=== PATIENT | female | born 1960 | race African-American/Black ===

== ENCOUNTER → 2018-07-31 | Outpatient (CLI) | payer BC ==
[2014-06-11 14:30] VITALS: BP 154/90
[~2018-07-31] MED LIST: AMLO-265 PO; BENA40TA3 PO; CALC667C6 PO; ENOX100D3 SQ; FOLI1TAB16 PO; FURO40TA4 PO; LISI10TA2 PO; METH2.5T PO; METO50TA6 PO; NIAC500T82 PO; PANT40TA5 PO; POLY17PO29 PO; POTA20TA84 PO; TRAM50TA PO; WARF-31 PO
--- NOTE | 2018-08-01 14:40 | RAD ---
DATE: 07/31/2018 5:00 PM EXAM: DIGITAL SCREEN BILAT W/CAD HISTORY: routine screening evaluation. COMPARISON: Prior mammographic imaging dating back to 02/20/2012 Bilateral full field craniocaudal and mediolateral oblique images were obtained using digital technique. This study was interpreted with the benefit of Computerized Aided Detection (CAD ). Breast Density: The breast parenchyma is dense, which could reduce the sensitivity of mammography. Breast parenchyma level density D. FINDINGS: The parenchymal pattern appears stable. Benign calcifications are present. No suspicious masses, microcalcifications or architectural distortion is present to suggest malignancy in either breast. The visualized axillae are unremarkable. IMPRESSION: No mammographic evidence of malignancy. BI-RADS CATEGORY: 2 BENIGN FINDING(S) RECOMMENDED FOLLOW-UP: 12M 12 MONTH FOLLOW-UP Annual screening mammography is recommended, unless clinically indicated sooner based on symptoms or change in physical exam. PQRS compliance statement: Patient information was entered into a reminder system with a target due date 08/01/2019 for the next mammogram. Mammography is a sensitive method for finding small breast cancers, but it does not detect them all and is not a substitute for careful clinical examination. A negative mammogram does not negate a clinically suspicious finding and should not result in delay in biopsying a clinically suspicious abnormality. "Our facility is accredited by the [employer] Mammography Program." PRUDENCED
== END | disposition home or self-care (01) ==
LOC: MAMMO 14:56
PROVIDERS: ATTEND Physician Assistant Surgical
DX: Z12.31 Encounter for screening mammogram for malignant neoplasm of breast (principal)
CPT/HCPCS: 77067

== ENCOUNTER 2018-12-13 10:48 | Inpatient (IN) | payer BC ==
[~2018-12-13] VITALS: Ht 167.6 cm; Wt 61.9 kg
--- NOTE | 2018-12-13 11:09 | PHYS DOC ---
Past Medical History Past Medical History: A-Fib, Anemia, CHF, Hypertension Smoking: Cigarettes (Former smoker) Adult General HPI HPI Patient is a 58-year-old female who presents to the emergency department for evaluation. She states she was at work,lifting a heavy box, when she began experiencing pressure in her chest, associated with shortness of breath. She did not have any nausea, vomiting, or diaphoresis. She states that taking a deep breath seems to worsen her pain. She states the pain lasted about 15 minutes, and then gradually improved, and then completely resolved. She has been asymptomatic since EMS arrived at the site of her work. She does have a history of atrial fibrillation, and takes Xarelto, as well as a history of congestive heart failure and hypertension. She is pain-free at this time. The pain did not radiate. There are no alleviating or exacerbating factors to her symptoms otherwise. Review of Systems Review of Systems Constitutional: Denies fever or chills [] Eyes: Denies change in visual acuity, redness, or eye pain [] HENT: Denies nasal congestion or sore throat [] Respiratory: Denies cough or current shortness of breath [] Cardiovascular: No additional information not addressed in HPI [] GI: Denies abdominal pain, nausea, vomiting, bloody stools or diarrhea [] : Denies dysuria or hematuria [] Musculoskeletal: Denies back pain or joint pain [] Integument: Denies rash or skin lesions [] Neurologic: Denies headache, focal weakness or sensory changes [] Endocrine: Denies polyuria or polydipsia [] All other systems were reviewed and found to be within normal limits, except as documented in this note. Current Medications Current Medications Current Medications Medications (Trade) Dose Ordered Sig/Blaine Start Time Stop Time Status Last Admin Dose Admin Aspirin (Children'S Aspirin) 162 mg 1X ONCE 12/13/18 11:15 12/13/18 11:16 DC 12/13/18 11:24 162 MG Nitroglycerin (Nitro-Bid Oint) 1 inch 1X ONCE 12/13/18 11:15 12/13/18 11:16 DC 12/13/18 11:25 1 INCH Allergies Allergies Allergies Coded Allergies Type Severity Reaction Last Updated Verified No Known Drug Allergies 05/23/14 No Physical Exam Physical Exam PHYSICAL EXAM: CONSTITUTIONAL: Well developed, well nourished HEAD: normocephalic, atraumatic EENT: PERRL, EOMI. Conjunctivae normal color, sclerae non-icteric; moist mucous membranes. NECK: Supple, non-tender; no meningismus. LUNGS: Lungs CTA, breathing even and unlabored. Normal air movement. HEART: Regular rate and rhythm, there is a soft holosystolic murmur CHEST: No deformity; non-tender ABDOMEN: The abdomen is soft, and non-tender, no masses or bruits. EXTREM: Normal ROM; no deformity, no calf tenderness. Normal pulses palpable in all extremities. There is 1+ bilateral pitting pedal edema. SKIN: No rash; no diaphoresis NEURO: Alert; normal speech and cognition; CN's grossly intact; strength grossly intact without focal deficit. BACK: No CVA TTP. Current Patient Data Vital Signs Vital Signs Date Time Temp Pulse Resp B/P (MAP) Pulse Ox O2 Delivery O2 Flow Rate FiO2 12/13/18 11:25 97 173/81 12/13/18 10:50 98.4 18 99 Room Air 98.4 Lab Values Laboratory Tests Test 12/13/18 11:15 White Blood Count 4.2 x10^3/uL (4.0-11.0) Red Blood Count 2.75 x10^6/uL (3.50-5.40) L Hemoglobin 8.2 g/dL (12.0-15.5) L Hematocrit 25.0 % (36.0-47.0) L Mean Corpuscular Volume 91 fL (79-100) Mean Corpuscular Hemoglobin 30 pg (25-35) Mean Corpuscular Hemoglobin Concent 33 g/dL (31-37) Red Cell Distribution Width 17.4 % (11.5-14.5) H Platelet Count 152 x10^3/uL (140-400) Neutrophils (%) (Auto) 79 % (31-73) H Lymphocytes (%) (Auto) 14 % (24-48) L Monocytes (%) (Auto) 6 % (0-9) Eosinophils (%) (Auto) 1 % (0-3) Basophils (%) (Auto) 1 % (0-3) Neutrophils # (Auto) 3.3 x10^3uL (1.8-7.7) Lymphocytes # (Auto) 0.6 x10^3/uL (1.0-4.8) L Monocytes # (Auto) 0.2 x10^3/uL (0.0-1.1) Eosinophils # (Auto) 0.0 x10^3/uL (0.0-0.7) Basophils # (Auto) 0.0 x10^3/uL (0.0-0.2) Prothrombin Time 22.0 SEC (11.7-14.0) H Prothrombin Time INR 2.0 (0.8-1.1) H Sodium Level 140 mmol/L (136-145) Potassium Level 4.1 mmol/L (3.5-5.1) Chloride Level 104 mmol/L (98-107) Carbon Dioxide Level 26 mmol/L (21-32) Anion Gap 10 (6-14) Blood Urea Nitrogen 66 mg/dL (7-20) H Creatinine 2.1 mg/dL (0.6-1.0) H Estimated GFR (Cockcroft-Gault) 29.3 BUN/Creatinine Ratio 31 (6-20) H Glucose Level 92 mg/dL (70-99) Calcium Level 9.7 mg/dL (8.5-10.1) Total Bilirubin 0.4 mg/dL (0.2-1.0) Aspartate Amino Transferase (AST) 21 U/L (15-37) Alanine Aminotransferase (ALT) 17 U/L (14-59) Alkaline Phosphatase 84 U/L (46-116) Creatine Kinase 50 U/L (26-192) Creatine Kinase MB (Mass) 1.1 ng/mL (0.0-3.6) Creatine Kinase MB Relative Index % (0-4) Troponin I Quantitative 0.030 ng/mL (0.000-0.055) RH-Zij-U-Type Natriuretic Peptide 1188 pg/mL (0-124) H Total Protein 8.2 g/dL (6.4-8.2) Albumin 2.7 g/dL (3.4-5.0) L Albumin/Globulin Ratio 0.5 (1.0-1.7) L Lipase 183 U/L (73-393) Laboratory Tests 12/13/18 11:15 Laboratory Tests 12/13/18 11:15 EKG EKG Normal sinus rhythm at a rate of 92 beats for minute, left axis deviation, normal intervals, nonspecific ST/T changes with lateral T wave inversion. There is no old EKG available for comparison.[] Radiology/Procedures Radiology/Procedures [PROCEDURE: PORTABLE CHEST 1V Single view of the chest. 12/13/2018 11:02 AM Indication: PT STATES HAVING LEFT SIDED CHEST PAIN AND TROUBLE BREATHING SINCE THIS AM. Comparison: Chest radiograph August 02, 2017 Findings: There appears to be mild to moderate central vascular congestion. Heart size is top normal. Interstitial coarsening noted bilaterally, right greater than left. Fullness in the right hilar region noted. No pneumothorax or definitive effusion is seen. Bony thorax appears grossly intact. IMPRESSION: 1.Central vascular congestion and interstitial thickening. Findings may represent mild edema or an atypical infectious process. 2. Fullness of the right hilar region. This could be due to vascular congestion however adenopathy or mass cannot be completely excluded. Consider short-term follow-up two-view chest radiograph versus contrast enhanced CT chest for further evaluation. ] Course & Med Decision Making Course & Med Decision Making Pertinent Labs and Imaging studies reviewed. (See chart for details) []12:15 PM: The patient's condition remains stable. I spoke with the hospitalist, who accepted the patient to the hospital for further evaluation and treatment. She has not had any recent labs at this facility. I will attempt to find out the patient's recent renal function and hemoglobin levels although she reports a history of anemia Dragon Disclaimer Dragon Disclaimer This electronic medical record was generated, in whole or in part, using a voice recognition dictation system. Departure Departure Impression: Primary Impression: Chest pain Additional Impressions: Congestive heart failure Renal insufficiency Anemia Disposition: ADMITTED INPATIENT Admitting Physician: Bairon Molina Condition: STABLE Referrals: KESHAWN WINKLER (PCP) Problem Qualifiers SHERLY STALLINGS MD December 13, 2018 11:09
[2018-12-13] MEDS ORDERED: NITROGLYCERIN OINT 1 GM PACKET. TP ONE (11:15)
[2018-12-13] MEDS ORDERED: ASPIRIN CHEWABLE 81 MG TABLET. PO ONE (11:15)
[2018-12-13 11:33] LABS: BASO % 1 % (0-3); EOS % 1 % (0-3); HEMOGLOBIN 8.2 g/dL (12.0-15.5); LYMPH # 0.6 x10^3/uL (1.0-4.8); LYMPH % 14 % (24-48); MEAN CORPUSCULAR HEMOGLOBIN 30 pg (25-35); MEAN CORPUSCULAR HGB CONC 33 g/dL (31-37); MEAN CORPUSCULAR VOLUME 91 fL (79-100); MONO # 0.2 x10^3/uL (0.0-1.1); MONO % 6 % (0-9); NEUT # 3.3 x10^3uL (1.8-7.7); NEUT % 79 % (31-73); PLATELET COUNT 152 x10^3/uL (140-400); RED BLOOD COUNT 2.75 x10^6/uL (3.50-5.40); RED CELL DISTRIBUTION WIDTH 17.4 % (11.5-14.5); WHITE BLOOD COUNT 4.2 x10^3/uL (4.0-11.0)
[2018-12-13 11:39] LABS: CALCIUM 9.7 mg/dL (8.5-10.1); CREATININE 2.1 mg/dL (0.6-1.0); GFR 29.3; POTASSIUM 4.1 mmol/L (3.5-5.1)
--- NOTE | 2018-12-13 11:41 | PDOC1 ---
History and Physical Date of Admission Date of Admission DATE: 12/13/18 TIME: 11:41 Identification/Chief Complaint Chief Complaint states she was at work,lifting a heavy box, when she began experiencing pressure in her chest, associated with shortness of breath. She did not have any nausea, vomiting, or diaphoresis. She states that taking a deep breath seems to worsen her pain. She states the pain lasted about 15 minutes, and then gradually improved, and then completely resolved. She has been asymptomatic since EMS arrived at the site of her work. She does have a history of atrial fibrillation, and takes Xarelto, as well as a history of congestive heart failure and hypertension Past Medical History Past Medical History Past Medical History Past Medical History Past Medical History: A-Fib, Anemia, CHF, Hypertension Smoking: Cigarettes (Former smoker) renal bx 2015 uterine myoma family hx htn Cardiovascular: HTN, Hyperlipidemia Pulmonary: Asthma CENTRAL NERVOUS SYSTEM: Seizure GI: GERD Renal/: Other Family History Family History: Hypertension Social History Smoke: <1 pack per day ALCOHOL: occassional Drugs: None Current Medications Current Medications Current Medications Aspirin (Children'S Aspirin) 162 mg 1X ONCE PO Last administered on 12/13/18at 11:24; Start 12/13/18 at 11:15; Stop 12/13/18 at 11:16; Status DC Nitroglycerin (Nitro-Bid Oint) 1 inch 1X ONCE TP Last administered on 12/13/18at 11:25; Start 12/13/18 at 11:15; Stop 12/13/18 at 11:16; Status DC Active Scripts Active Reported Miralax (Polyethylene Glycol 3350) 17 Gm Powd.pack 1 Packet PO DAILY Lisinopril 10 Mg Tablet 1 Tab PO DAILY Phoslo (Calcium Acetate) 667 Mg Capsule 1 Cap PO DAILY K-Tab ER (Potassium Chloride) 20 Meq Tablet.er 20 Meq PO DAILY Folic Acid 1 Mg Tablet 1 Mg PO DAILY Pantoprazole Sodium 40 Mg Tablet.dr 40 Mg PO DAILY Benazepril Hcl 40 Mg Tablet 40 Mg PO DAILY Furosemide 40 Mg Tablet 40 Mg PO DAILY Metoprolol Tartrate 50 Mg Tablet 50 Mg PO DAILY Amlodipine-Atorvast 5-40 Mg (Amlodipine/Atorvastatin) 1 Each Tablet 1 Each PO DAILY Enoxaparin Sodium 100 Mg/1 Ml Disp.syrin 100 Mg SQ DAILY Tramadol Hcl 50 Mg Tablet 50 Mg PO DAILY PRN Niacin Er (Niacin) 500 Mg Tab.er.24h 500 Mg PO HS Allergies Allergies: Coded Allergies: No Known Drug Allergies (Unverified , 05/23/14) ROS Review of System Review of Systems Review of Systems Constitutional: Denies fever or chills [] Eyes: Denies change in visual acuity, redness, or eye pain [] HENT: Denies nasal congestion or sore throat [] Respiratory: Denies cough or current shortness of breath [] Cardiovascular: No additional information not addressed in HPI [] GI: Denies abdominal pain, nausea, vomiting, bloody stools or diarrhea [] : Denies dysuria or hematuria [] Musculoskeletal: Denies back pain or joint pain [] Integument: Denies rash or skin lesions [] Neurologic: Denies headache, focal weakness or sensory changes [] Endocrine: Denies polyuria or polydipsia [] 14 pt systems were reviewed and found to be within normal limits, except as documented . Hematological and Lymphatic: No: Bleeding Problems, Blood Clots, Blood Transfusions, Brusing, Night Sweats, Pallor, Swollen Lymph Nodes, Other Cardiovascular: yes Chest Pain, yes Palpitations Gastrointestinal: No Nausea, No Vomiting, No Abdominal Pain, No Diarrhea, No Constipation, No Melena, No Hematochezia, No Other Musculoskeletal: No Gait Disturbance, No Joint Pain, No Joint Stiffness, No Joint Swelling, No Muscle Pain, No Muscular Weakness, No Pain In:, No Swelling In:, No Other Skin: No Dry Skin, No Eczema, No Hair Changes, No Lumps, No Mole Changes, No Mottling, No Nail Changes, No Pruritus, No Rash, No Skin Lesion Changes, No Other, No Acne Physical Exam Physical Exam Physical Exam Physical Exam PHYSICAL EXAM: CONSTITUTIONAL: Well developed, well nourished HEAD: normocephalic, atraumatic EENT: PERRL, EOMI. Conjunctivae normal color, sclerae non-icteric; moist mucous membranes. NECK: Supple, non-tender; no meningismus. LUNGS: Lungs CTA, breathing even and unlabored. Normal air movement. HEART: Regular rate and rhythm, there is a soft holosystolic murmur CHEST: No deformity; non-tender ABDOMEN: The abdomen is soft, and non-tender, no masses or bruits. EXTREM: Normal ROM; no deformity, no calf tenderness. Normal pulses palpable in all extremities. There is 1+ bilateral pitting pedal edema. SKIN: No rash; no diaphoresis NEURO: Alert; normal speech and cognition; CN's grossly intact; strength grossly intact without focal deficit. BACK: No CVA TTP. General: Alert, Oriented X3, Cooperative, mild distress HEENT: Atraumatic, EOMI, Mucous membr. moist/pink Lungs: Normal air movement Heart: irregularly irregular Breasts: Not examined Abdomen: Normal bowel sounds, Soft Rectal Exam: not examined PELVIC: Examination not indicated Extremities: No cyanosis Neuro: Normal speech, Cranial nerves 3-12 NL Psych/Mental Status: Mental status NL, Mood NL Vitals Vitals Vital Signs Date Time Temp Pulse Resp B/P (MAP) Pulse Ox O2 Delivery O2 Flow Rate FiO2 12/13/18 11:25 97 173/81 Labs Labs Laboratory Tests Test 12/13/18 11:15 White Blood Count 4.2 x10^3/uL (4.0-11.0) Red Blood Count 2.75 x10^6/uL (3.50-5.40) Hemoglobin 8.2 g/dL (12.0-15.5) Hematocrit 25.0 % (36.0-47.0) Mean Corpuscular Volume 91 fL (79-100) Mean Corpuscular Hemoglobin 30 pg (25-35) Mean Corpuscular Hemoglobin Concent 33 g/dL (31-37) Red Cell Distribution Width 17.4 % (11.5-14.5) Platelet Count 152 x10^3/uL (140-400) Neutrophils (%) (Auto) 79 % (31-73) Lymphocytes (%) (Auto) 14 % (24-48) Monocytes (%) (Auto) 6 % (0-9) Eosinophils (%) (Auto) 1 % (0-3) Basophils (%) (Auto) 1 % (0-3) Neutrophils # (Auto) 3.3 x10^3uL (1.8-7.7) Lymphocytes # (Auto) 0.6 x10^3/uL (1.0-4.8) Monocytes # (Auto) 0.2 x10^3/uL (0.0-1.1) Eosinophils # (Auto) 0.0 x10^3/uL (0.0-0.7) Basophils # (Auto) 0.0 x10^3/uL (0.0-0.2) Sodium Level 140 mmol/L (136-145) Potassium Level 4.1 mmol/L (3.5-5.1) Chloride Level 104 mmol/L (98-107) Carbon Dioxide Level 26 mmol/L (21-32) Anion Gap 10 (6-14) Blood Urea Nitrogen 66 mg/dL (7-20) Creatinine 2.1 mg/dL (0.6-1.0) Estimated GFR (Cockcroft-Gault) 29.3 BUN/Creatinine Ratio 31 (6-20) Glucose Level 92 mg/dL (70-99) Calcium Level 9.7 mg/dL (8.5-10.1) Laboratory Tests Test 12/13/18 11:15 White Blood Count 4.2 x10^3/uL (4.0-11.0) Red Blood Count 2.75 x10^6/uL (3.50-5.40) Hemoglobin 8.2 g/dL (12.0-15.5) Hematocrit 25.0 % (36.0-47.0) Mean Corpuscular Volume 91 fL (79-100) Mean Corpuscular Hemoglobin 30 pg (25-35) Mean Corpuscular Hemoglobin Concent 33 g/dL (31-37) Red Cell Distribution Width 17.4 % (11.5-14.5) Platelet Count 152 x10^3/uL (140-400) Neutrophils (%) (Auto) 79 % (31-73) Lymphocytes (%) (Auto) 14 % (24-48) Monocytes (%) (Auto) 6 % (0-9) Eosinophils (%) (Auto) 1 % (0-3) Basophils (%) (Auto) 1 % (0-3) Neutrophils # (Auto) 3.3 x10^3uL (1.8-7.7) Lymphocytes # (Auto) 0.6 x10^3/uL (1.0-4.8) Monocytes # (Auto) 0.2 x10^3/uL (0.0-1.1) Eosinophils # (Auto) 0.0 x10^3/uL (0.0-0.7) Basophils # (Auto) 0.0 x10^3/uL (0.0-0.2) Sodium Level 140 mmol/L (136-145) Potassium Level 4.1 mmol/L (3.5-5.1) Chloride Level 104 mmol/L (98-107) Carbon Dioxide Level 26 mmol/L (21-32) Anion Gap 10 (6-14) Blood Urea Nitrogen 66 mg/dL (7-20) Creatinine 2.1 mg/dL (0.6-1.0) Estimated GFR (Cockcroft-Gault) 29.3 BUN/Creatinine Ratio 31 (6-20) Glucose Level 92 mg/dL (70-99) Calcium Level 9.7 mg/dL (8.5-10.1) Images Images CT-guided biopsy lower pole right kidney Indication: Proteinuria. Hypertension. Renal biopsy requested by nephrology. Anesthesia: 34 minutes moderate sedation was provided utilizing a total of 2 mg Versed and 100 mcg fentanyl, IV. The patient was appropriately monitored by a qualified independent observer throughout the time of moderate sedation. Consent: The procedure was explained in its entirety to the patient and/or the patient's designated represented by a member of the treatment team. This included a discussion of risks and benefits and acceptable alternatives to the procedure, as well as expected consequences of no treatment at all. Discussion of risks included, but was not limited to, those that are most frequent and those that are rare, but possibly severe or life-threatening, as well as the possibility of unforeseen complications. Procedure: Informed consent was obtained from the patient. She was placed prone on the CT scanner. Preliminary noncontrast CT images were obtained through kidneys. A right posterior skin site suitable for CT-guided biopsy of lower pole of right kidney was selected and marked. That area was prepped and draped in the usual sterile fashion. Conscious sedation was provided with IV Versed and fentanyl. Using aseptic technique, local anesthesia, and CT guidance, a 17-gauge guide needle was successfully advanced into right lower pole renal parenchyma. 4 18-gauge core biopsy samples were obtained. 2 samples were submitted in formalin to pathology. 2 samples were submitted in Pedro's solution to pathology. Hemostasis was achieved with autologous clot introduced through the biopsy guide needle, which was then removed. Completion CT images revealed no evidence of significant postbiopsy hemorrhage. Patient tolerated the procedure well without apparent complication. Impression: Uneventful CT-guided biopsy lower pole right kidney, as described. DICTATED and SIGNED BY: TARUN BUSTAMANTE MD DATE: 06/13/14 0759 CC: RIDDHI IRIZARRY MD; ASIYA SANDHU MD ~ CT chest abdomen pelvis without IV contrast History: Anemia, chronic kidney disease. Comparison: CT chest 08/20/2005. Technique: After administration of oral contrast only, helical CT of the chest, abdomen, and pelvis was performed from the lung apices through the ischial tuberosities. No intravenous contrast was administered secondary to impaired renal function. Findings: Evaluation of solid organs is limited by lack of intravenous contrast. Visualized thyroid appears mildly heterogeneous. Trachea and mainstem bronchi appear patent. Small bilateral axillary lymph nodes are similar to previous study. Small prevascular lymph nodes appear similar to smaller since previous study. Trachea and mainstem bronchi appear patent. Right upper lobe demonstrates a small irregular nodule measuring 6 mm, unchanged, compatible with focal scar. No pericardial thickening is identified. Coronary artery calcifications are seen. Thoracic aorta has normal caliber. Attenuation of blood full appears decreased relative to the ventricular chung, suggesting anemia. Liver, spleen, pancreas, gallbladder, and bilateral adrenal glands are unremarkable. Bilateral kidneys and ureters are free of stone or obstruction. Inferior vena cava filter is present, although some of the legs appeared to be external to the expected location of the IVC wall. No bowel obstruction or inflammation is identified. Urinary bladder is grossly normal. A few small abdominal and retroperitoneal lymph nodes are seen, all of which measure 10 mm in short axis. Multiple lobulated masses are seen in the pelvis which is thought to arise from the uterus and are compatible with multiple large exophytic leiomyoma. The largest leiomyoma measures about 8 cm in maximum dimension. Some of the leiomyomata demonstrate calcifications. The overall length of the uterus is estimated at 19 cm with maximum AP dimension of 8 cm and maximum transverse dimension of 15 cm. Mild biphasic scoliosis of the thoracic spine is seen. Impression: 1. Markedly enlarged, leiomyomatous uterus. 2. Mild chest lymphadenopathy, similar to previous study. 3. Borderline abdominal lymphadenopathy. DICTATED and SIGNED BY: STEPHANIA BLEDSOE MD DATE: 05/14/15 0937 CC: ASIYA SANDHU MD; PHUONG RUSH MD ~ Single view of the chest. 12/13/2018 11:02 AM Indication: PT STATES HAVING LEFT SIDED CHEST PAIN AND TROUBLE BREATHING SINCE THIS AM. Comparison: Chest radiograph August 02, 2017 Findings: There appears to be mild to moderate central vascular congestion. Heart size is top normal. Interstitial coarsening noted bilaterally, right greater than left. Fullness in the right hilar region noted. No pneumothorax or definitive effusion is seen. Bony thorax appears grossly intact. IMPRESSION: 1.Central vascular congestion and interstitial thickening. Findings may represent mild edema or an atypical infectious process. 2. Fullness of the right hilar region. This could be due to vascular congestion however adenopathy or mass cannot be completely excluded. Consider short-term follow-up two-view chest radiograph versus contrast enhanced CT chest for further evaluation. Electronically signed by: Deo Rucker MD (12/13/2018 12:05 PM) [id number] DICTATED and SIGNED BY: DEO RUCKER MD VTE Prophylaxis Ordered VTE Prophylaxis Devices: Yes VTE Pharmacological Prophylaxi: Yes Assessment/Plan Assessment/Plan impression chest discomfort Fullness of the right hilar region. This could be due to vascular congestion however adenopathy or mass cannot be completely excluded. Consider short-term follow-up two-view chest radiograph versus contrast enhanced CT chest for further evaluation. valvular heart disease renal failure hypertension hx a-fib plan cvc admit echo cardiology consult serial troponin i nephrology consult dvt prophylaxis 77 min pt exam, chart review, > 50% of time spent with exam, chart review, pt care coordination LAMONT ZARATE MD December 13, 2018 11:41
[2018-12-13 11:46] LABS: ALBUMIN 2.7 g/dL (3.4-5.0); ALBUMIN/GLOBULIN RATIO 0.5 (1.0-1.7); TOTAL BILIRUBIN 0.4 mg/dL (0.2-1.0); TOTAL PROTEIN 8.2 g/dL (6.4-8.2)
[2018-12-13 12:00] LABS: CREATINE KINASE 50 U/L (26-192)
--- NOTE | 2018-12-13 12:08 | RAD ---
Single view of the chest. 12/13/2018 11:02 AM Indication: PT STATES HAVING LEFT SIDED CHEST PAIN AND TROUBLE BREATHING SINCE THIS AM. Comparison: Chest radiograph August 02, 2017 Findings: There appears to be mild to moderate central vascular congestion. Heart size is top normal. Interstitial coarsening noted bilaterally, right greater than left. Fullness in the right hilar region noted. No pneumothorax or definitive effusion is seen. Bony thorax appears grossly intact. IMPRESSION: 1.Central vascular congestion and interstitial thickening. Findings may represent mild edema or an atypical infectious process. 2. Fullness of the right hilar region. This could be due to vascular congestion however adenopathy or mass cannot be completely excluded. Consider short-term follow-up two-view chest radiograph versus contrast enhanced CT chest for further evaluation. Electronically signed by: Deo Baptiste MD (12/13/2018 12:05 PM) [id number]
[2018-12-13] MEDS ORDERED: traMADol 50 MG TABLET PO PRN (12:45)
--- NOTE | 2018-12-13 13:10 | EKG ---
[facility] [address] [place] [address] Test Date: 2018-12-13 Test Time: 10:56:05 Pat Name: INA GRANT Department: Room: 258 1 Gender: F Primary Care Provider: : 1960 Requested By: SHERLY STALLINGS Order Number: [id number] Reading MD: Pastor Barnes Measurements Intervals [place] Rate: 92 P: 45 AL: 162 QRS: -26 QRSD: 84 T: 59 QT: 368 QTc: 460 Interpretive Statements SINUS RHYTHM LEFT ATRIAL ABNORMALITY INCOMPLETE RIGHT BUNDLE BRANCH BLOCK CONSIDER LEFT VENTRICULAR HYPERTROPHY QRS(T) CONTOUR ABNORMALITY CONSISTENT WITH INFERIOR INFARCT PROBABLY OLD Electronically Signed On 12-14-2018 10:10:23 CDT by Pastor Barnes
--- NOTE | 2018-12-13 13:18 | RAD ---
CT CHEST WO CONTRAST Indication: Lymphadenopathy Technique: Noncontrast CT imaging was performed of the chest, multiplanar reconstruction images submitted. One or more of the following individualized dose reduction techniques were utilized for this examination: 1. Automated exposure control 2. Adjustment of the mA and/or kV according to patient size 3. Use of iterative reconstruction technique. Comparison: August 20, [address]; chest radiograph the same day Findings: There is again significant enlargement of the heart. There is trace pericardial fluid. There is no pleural fluid or pneumothorax. There is a focus of noncalcified peripheral density more anteriorly of the right middle lobe abutting pleural surface image 33 series 2 about 1.2 cm in size, not seen on previous exam. There is also focus of subpleural right lower lobe density image 26 series 2 about 0.9 cm not seen previously. Focus of irregular appearing noncalcified density of the right upper lobe image 21 series 2 about 0.8 cm is similar in size. There is some reticular density of the lower lobes bilaterally likely component of fibrotic change as similar in appearance. Thoracic aortic caliber is overall within normal limits. There is coronary calcification. Evaluation for lymphadenopathy is somewhat limited given lack of contrast, hilar and mediastinal contours similar compared with the previous exam. There are some subcentimeter mediastinal nodes present which are similar. There is axillary lymphadenopathy bilaterally with largest node on the right about 1.5 cm short axis dimension and largest node on the left about 1.3 cm short axis dimension although axillary nodes are very similar in overall appearance. There is mild reverse S-shaped scoliosis of the thoracic spine. There is again thyromegaly, also likely foci of nodularity most notable of the left thyroid gland about 2 cm. IMPRESSION: 1. Bilateral axillary lymphadenopathy is similar compared with the 2006 exam, no new convincing mediastinal or hilar lymphadenopathy. There are some new foci of subpleural noncalcified density of the right lower and right upper lobes for which short-term follow-up imaging such as in 3 months is recommended. If there is strong clinical suspicion for malignancy, PET CT could be beneficial. Another focus of irregular nodular density of the right upper lobe is stable in appearance. 2. There is coronary calcification. 3. There is again significant enlargement of the heart. 4. There is again thyromegaly and likely thyroid nodules. Electronically signed by: Juan Francisco Wong MD (12/13/2018 1:15 PM) [id number]
[2018-12-13] MEDS ORDERED: METO-247 PO ×3 (13:36→15:27)
[2018-12-13 13:40] VITALS: BP 165/82
--- NOTE | 2018-12-13 14:00 | NUR ---
Pt arrived to unit via wheelchair. Family present. No complaints of pain or shortness of breath. Pt oriented to room and call light within reach. Will continue to monitor. The patient, INA GRANT, 58 y/o, F admitted by LAMONT ZARATE MD, was given written information regarding hospital policies, unit procedures and contact persons. Pt belongings checked and kept in room with patient.
[2018-12-13] MEDS ORDERED: OLME1TAB35 PO (14:01)
[2018-12-13] MEDS ORDERED: ATOR40TA59 PO (14:01)
[2018-12-13] MEDS ORDERED: RIVA10TA PO (14:02)
[2018-12-13] MEDS ORDERED: ALBU2.5V8 INH (14:03)
[2018-12-13] MEDS ORDERED: BUDE10.2 IH (14:03)
[2018-12-13] MEDS ORDERED: TIOT18CA IH (14:03)
--- NOTE | 2018-12-13 14:07 | PDOC2 ---
CURTIS DOE ROCKET ENGINE COMPONENT MECHANIC 12/13/18 1407: CARDIAC CONSULT DATE OF CONSULT Date of Consult DATE: 12/13/18 TIME: 13:46 REASON FOR CONSULT Reason for Consult: Chest pain REFERRING PHYSICIAN Referring Physician: CP, CHF SOURCE Source: Chart review, Patient HISTORY OF PRESENT ILLNESS HISTORY OF PRESENT ILLNESS This is a 58 yo male AA female admitted for chest pain. She was at work lifting heavy box when she started having chest pressure and SOA lasting about 15 minutes and actually dropped the box with the turkey in it weighing less than 10 pounds. Also was having palpitations like her heart was racing. Her chest pain was midchest like someone hit her with a fist but nonradiating. No jaw tightness or arm heaviness. No nausea, diaphoresis. There has been no changes to her activity tolerance and no recent symptoms like the latter, no exertional CP nor HOBSON. She does have hx of PE, some form of lupus but not SLE, antiphospholipid antibody syndrome and has RA to which she told me that she is not currently on any immunosuppression but could not verify her medications. No past hx of CAD but was due to see a restaurant hospitality manager for the first time soon. She has hx of AFIB which was noted 5 yrs ago initially. No recent stress test. She also has noticed that her legs have been more swollen in the last 3 days. No recent infection, no orthopnea nor PND. PAST MEDICAL HISTORY Cardiovascular: AFIB, HTN, Hyperlipidemia Pulmonary: COPD, Pulmonary embolus CENTRAL NERVOUS SYSTEM: Other (No pertinent history) GI: GERD Heme/Onc: Anemia NOS, Other (antiphospholipid antibody syndrome; chronic immunosuppresion; pancytopenia) Musculoskeletal: Osteoarthritis Rheumatologic: Rheumatoid arthritis, Other (lupus, unknown type) Infectious disease: No pertinent hx ENT: Allergic Rhinitis Renal/: Chronic renal insuff (CKD3) Endocrine: No pertinent hx Dermatology: No pertinent hx PAST SURGICAL HISTORY Past Surgical History: Other (liver biopsy) FAMILY HISTORY Family History: Hypertension SOCIAL HISTORY Smoke: Quit ALCOHOL: none Drugs: None Lives: Alone CURRENT MEDICATIONS CURRENT MEDICATIONS Current Medications Medications (Trade) Dose Ordered Sig/Blaine Route PRN Reason Start Time Stop Time Status Last Admin Dose Admin Aspirin (Children'S Aspirin) 162 mg 1X ONCE PO 12/13/18 11:15 12/13/18 11:16 DC 12/13/18 11:24 Nitroglycerin (Nitro-Bid Oint) 1 inch 1X ONCE TP 12/13/18 11:15 12/13/18 11:16 DC 12/13/18 11:25 ALLERGIES ALLERGIES: Coded Allergies: No Known Drug Allergies (Unverified , 05/23/14) ROS Review of System 14 point ROS evaluated with pertinent positives noted per HPI PHYSICAL EXAM General: Alert, Oriented X3, Cooperative, No acute distress HEENT: Atraumatic, Mucous membr. moist/pink Lungs: Clear to auscultation, Normal air movement Heart: Regular rate (SR), Other (diastolic murmur loudest to erb 4/6; JVD, + hepatojugular reflux) Abdomen: Soft, No tenderness Extremities: No cyanosis, Other (2+ bilateral LE pitting edema) Skin: No breakdown, No significant lesion Neuro: Normal speech, Sensation intact Psych/Mental Status: Mental status NL, Mood NL MUSCULOSKELETAL: Osteoarthritic changes both hands VITALS VITALS Vital Signs Date Time Temp Pulse Resp B/P (MAP) Pulse Ox O2 Delivery O2 Flow Rate FiO2 12/13/18 11:25 97 173/81 12/13/18 10:50 98.4 18 99 Room Air 98.4 LABS Lab: Laboratory Tests Test 12/13/18 11:15 White Blood Count 4.2 x10^3/uL (4.0-11.0) Red Blood Count 2.75 x10^6/uL (3.50-5.40) Hemoglobin 8.2 g/dL (12.0-15.5) Hematocrit 25.0 % (36.0-47.0) Mean Corpuscular Volume 91 fL (79-100) Mean Corpuscular Hemoglobin 30 pg (25-35) Mean Corpuscular Hemoglobin Concent 33 g/dL (31-37) Red Cell Distribution Width 17.4 % (11.5-14.5) Platelet Count 152 x10^3/uL (140-400) Neutrophils (%) (Auto) 79 % (31-73) Lymphocytes (%) (Auto) 14 % (24-48) Monocytes (%) (Auto) 6 % (0-9) Eosinophils (%) (Auto) 1 % (0-3) Basophils (%) (Auto) 1 % (0-3) Neutrophils # (Auto) 3.3 x10^3uL (1.8-7.7) Lymphocytes # (Auto) 0.6 x10^3/uL (1.0-4.8) Monocytes # (Auto) 0.2 x10^3/uL (0.0-1.1) Eosinophils # (Auto) 0.0 x10^3/uL (0.0-0.7) Basophils # (Auto) 0.0 x10^3/uL (0.0-0.2) Prothrombin Time 22.0 SEC (11.7-14.0) Prothromb Time International Ratio 2.0 (0.8-1.1) Sodium Level 140 mmol/L (136-145) Potassium Level 4.1 mmol/L (3.5-5.1) Chloride Level 104 mmol/L (98-107) Carbon Dioxide Level 26 mmol/L (21-32) Anion Gap 10 (6-14) Blood Urea Nitrogen 66 mg/dL (7-20) Creatinine 2.1 mg/dL (0.6-1.0) Estimated GFR (Cockcroft-Gault) 29.3 BUN/Creatinine Ratio 31 (6-20) Glucose Level 92 mg/dL (70-99) Calcium Level 9.7 mg/dL (8.5-10.1) Total Bilirubin 0.4 mg/dL (0.2-1.0) Aspartate Amino Transf (AST/SGOT) 21 U/L (15-37) Alanine Aminotransferase (ALT/SGPT) 17 U/L (14-59) Alkaline Phosphatase 84 U/L (46-116) Creatine Kinase 50 U/L (26-192) Creatine Kinase MB (Mass) 1.1 ng/mL (0.0-3.6) Creatine Kinase MB Relative Index % (0-4) Troponin I Quantitative 0.030 ng/mL (0.000-0.055) AD-Suf-A-Type Natriuretic Peptide 1188 pg/mL (0-124) Total Protein 8.2 g/dL (6.4-8.2) Albumin 2.7 g/dL (3.4-5.0) Albumin/Globulin Ratio 0.5 (1.0-1.7) Lipase 183 U/L (73-393) ASSESSMENT/PLAN ASSESSMENT/PLAN 1. Chest pain: potentially could be from arrhythmia given her symptom of palpitations. EKG SR, LVH with no significant changes by comparison 2. Acute on chronic diastolic CHF 3. Valvular insufficiency/diastolic murmur 4. PAFIB: maintaining SR 5. Hx of lupus/antiphospholipid antibody syndrome with past PE 6. HTN: labile 7. HLP 8. Anemia of chronic disease with prior hx of thrombocytopenia and leukopenia: ruled as an effect from immunosuppression 9. CKD3: per past chart review 10. Hx of RA: not sure if she is still on imuran, but claims not being on steroids nor methotrexate anymore. 11. Thyromegaly/nodules: per CT 12. COPD/pulmonary HTN Recommendations 1. Lasix IV x1. Continue home lasix 2. At home xarelto 10 mg daily which is generally for VTE recurrent prevention. 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 3. LE venous doppler 4. Will obtain accurate meds and will resume accordingly. Resume home BB. Labetolol IV PRN. Baby ASA. 5. TTE, TSH, lipids and Mg. Trend trop 6. Will plan for outpt stress test given her cardiac risk factors unless s ignificant changes to trop and TTE. BRENDA RAY MD 12/13/182: CARDIAC CONSULT ASSESSMENT/PLAN ASSESSMENT/PLAN Patient seen and examined. Agree with SENIOR ARCHITECTURAL DESIGNER's assessment and plan. CP with mixed features. [place] ruled out 2D echo showed normal LVF without any wall motion abnormalities and mild Plan ischemic evaluation as outpatient PAF maintaining sinus rhythm Continue gentle diuresis for acute on chr diastolic HF Thank you for your consultation CURTIS DOE APRN December 13, 2018 14:07 BRENDA RAY MD December 13, 2018 21:32
--- NOTE | 2018-12-13 14:17 | PDOC2 ---
CONSULT Date of Consult Date of Consult DATE: 12/13/18 TIME: 14:07 Reason for Consult Reason for Consult: Elevated Creat Source Source: Chart review, Patient History of Present Illness Reason for Visit: Patient is a 58-year-old female who presents to the emergency department for evaluation. She states she was at work,lifting a heavy box, when she began experiencing pressure in her chest, associated with shortness of breath. She did not have any nausea, vomiting, or diaphoresis. She states that taking a deep breath seems to worsen her pain. She states the pain lasted about 15 minutes, and then gradually improved, and then completely resolved. She has been asymptomatic since EMS arrived at the site of her work. She does have a history of atrial fibrillation, and takes Xarelto, as well as a history of congestive heart failure and hypertension. There are no alleviating or exacerbating factors to her symptoms otherwise. denies any N/V/D. No F/C No urinary complaints . Has CKD follows with me . Most recent labs in Sep with Creat of 2.1. her baseline since 03/2018 Past Medical History Cardiovascular: AFIB, HTN, Hyperlipidemia Pulmonary: COPD, Pulmonary embolus CENTRAL NERVOUS SYSTEM: Other (No pertinent history) GI: GERD Heme/Onc: Anemia NOS, Other (antiphospholipid antibody syndrome; chronic immunosuppresion; pancytopenia) Musculoskeletal: Osteoarthritis Rheumatologic: Rheumatoid arthritis, Other (SLE?) Infectious disease: No pertinent hx ENT: Allergic Rhinitis Renal/: Chronic renal insuff (CKD3) Endocrine: No pertinent hx Dermatology: No pertinent hx Past Surgical History Past Surgical History: Other (liver biopsy) Family History Family History: Hypertension Social History Quit ALCOHOL: none Drugs: None Lives: Alone Current Problem List Problem List Problems Medical Problems: (1) Anemia Status: Acute (2) Chest pain Status: Acute (3) Congestive heart failure Status: Acute (4) Renal insufficiency Status: Acute Current Medications Current Medications Current Medications Aspirin (Children'S Aspirin) 162 mg 1X ONCE PO Last administered on 12/13/18at 11:24; Start 12/13/18 at 11:15; Stop 12/13/18 at 11:16; Status DC Nitroglycerin (Nitro-Bid Oint) 1 inch 1X ONCE TP Last administered on 12/13/18at 11:25; Start 12/13/18 at 11:15; Stop 12/13/18 at 11:16; Status DC Calcium Acetate (Phoslo) 667 mg BIDWMEALS PO ; Start 12/13/18 at 17:00 Enoxaparin Sodium (Lovenox 100mg Syringe) 100 mg DAILY SQ ; Start 12/14/18 at 09:00; Status UNV Folic Acid (Folic Acid) 1 mg DAILY PO ; Start 12/14/18 at 09:00 Furosemide (Lasix) 40 mg DAILY PO ; Start 12/14/18 at 09:00 Lisinopril (Prinivil) 10 mg DAILY PO ; Start 12/14/18 at 09:00; Status UNV Metoprolol Succinate (Toprol Xl) 50 mg DAILY PO ; Start 12/14/18 at 09:00 Niacin (Slo-Niacin) 500 mg HS PO ; Start 12/13/18 at 21:00 Pantoprazole Sodium (Protonix) 40 mg DAILYAC PO ; Start 12/14/18 at 07:30 Tramadol HCl (Ultram) 50 mg DAILY PRN PO PAIN; Start 12/13/18 at 12:45 Amlodipine Besylate (Norvasc) 5 mg DAILY PO ; Start 12/14/18 at 09:00 Polyethylene Glycol (miraLAX PACKET) 17 gm DAILY PO ; Start 12/14/18 at 09:00 Potassium Chloride (Klor-Con) 20 meq DAILYWBKFT PO ; Start 12/14/18 at 08:00 Atorvastatin Calcium (Lipitor) 40 mg QHS PO ; Start 12/13/18 at 21:00 Metoprolol Tartrate (Lopressor) 100 mg QHS PO ; Start 12/13/18 at 21:00 Active Scripts Active Reported Symbicort 160-4.5 Mcg Inhaler (Budesonide/Formoterol Fumarate) 10.2 Gm Hfa.aer.ad 1 Puff IH BID Spiriva (Tiotropium [place]) 18 Mcg Cap.w.dev 2 Inh IH DAILY Proair Hfa Inhaler (Albuterol Sulfate) 8.5 Gm Hfa.aer.ad 1 Puff INH PRN Q6HRS PRN Xarelto (Rivaroxaban) 10 Mg Tablet 10 Mg PO DAILY Tribenzor 40-10-25 Mg Tablet (Olmesartan/Amlodipin/Hcthiazid) 1 Each Tablet 1 Each PO DAILY Atorvastatin Calcium 40 Mg Tablet 40 Mg PO HS Metoprolol Succinate ( Xl ) (Metoprolol Succinate) 100 Mg Tab.er.24h 100 Mg PO QHS Metoprolol Succinate ( Xl ) (Metoprolol Succinate) 100 Mg Tab.er.24h 50 Mg PO DAILY Miralax (Polyethylene Glycol 3350) 17 Gm Powd.pack 1 Packet PO DAILY Phoslo (Calcium Acetate) 667 Mg Capsule 1 Cap PO BIDWMEALS K-Tab ER (Potassium Chloride) 20 Meq Tablet.er 20 Meq PO DAILY Pantoprazole Sodium 40 Mg Tablet.dr 40 Mg PO DAILY Furosemide 40 Mg Tablet 40 Mg PO [id number] Allergies Allergies: Coded Allergies: No Known Drug Allergies (Unverified , 05/23/14) ROS Review of System As per HPI Physical Exam Physical Exam GEN: NAD HEEN: OM moist NECK: Supple CVS: RRR RESP: CTA , Non labored GI: BS + ve, NO Bruit, Non Tender, : [No CVA tenderness, no Suprapubic Tenderness, No Rodríguez NEURO- Grossly normal EXT-NO edema SKIN- No rash Vital Signs Vital Signs Date Time Temp Pulse Resp B/P (MAP) Pulse Ox O2 Delivery O2 Flow Rate FiO2 12/13/18 11:25 97 173/81 12/13/18 10:50 98.4 18 99 Room Air 98.4 Assessment & Plan CKD stage 3 /4 - Baseline 2.1 since 03/2019 Stable renal function E-Lytes and acid base stable Monitor HTN - Continue Home meds AFib- On Xarelto Cardiology consulted Chest pain - Resolved Labs Labs Laboratory Tests Test 12/13/18 11:15 White Blood Count 4.2 x10^3/uL (4.0-11.0) Red Blood Count 2.75 x10^6/uL (3.50-5.40) Hemoglobin 8.2 g/dL (12.0-15.5) Hematocrit 25.0 % (36.0-47.0) Mean Corpuscular Volume 91 fL (79-100) Mean Corpuscular Hemoglobin 30 pg (25-35) Mean Corpuscular Hemoglobin Concent 33 g/dL (31-37) Red Cell Distribution Width 17.4 % (11.5-14.5) Platelet Count 152 x10^3/uL (140-400) Neutrophils (%) (Auto) 79 % (31-73) Lymphocytes (%) (Auto) 14 % (24-48) Monocytes (%) (Auto) 6 % (0-9) Eosinophils (%) (Auto) 1 % (0-3) Basophils (%) (Auto) 1 % (0-3) Neutrophils # (Auto) 3.3 x10^3uL (1.8-7.7) Lymphocytes # (Auto) 0.6 x10^3/uL (1.0-4.8) Monocytes # (Auto) 0.2 x10^3/uL (0.0-1.1) Eosinophils # (Auto) 0.0 x10^3/uL (0.0-0.7) Basophils # (Auto) 0.0 x10^3/uL (0.0-0.2) Prothrombin Time 22.0 SEC (11.7-14.0) Prothromb Time International Ratio 2.0 (0.8-1.1) Sodium Level 140 mmol/L (136-145) Potassium Level 4.1 mmol/L (3.5-5.1) Chloride Level 104 mmol/L (98-107) Carbon Dioxide Level 26 mmol/L (21-32) Anion Gap 10 (6-14) Blood Urea Nitrogen 66 mg/dL (7-20) Creatinine 2.1 mg/dL (0.6-1.0) Estimated GFR (Cockcroft-Gault) 29.3 BUN/Creatinine Ratio 31 (6-20) Glucose Level 92 mg/dL (70-99) Calcium Level 9.7 mg/dL (8.5-10.1) Total Bilirubin 0.4 mg/dL (0.2-1.0) Aspartate Amino Transf (AST/SGOT) 21 U/L (15-37) Alanine Aminotransferase (ALT/SGPT) 17 U/L (14-59) Alkaline Phosphatase 84 U/L (46-116) Creatine Kinase 50 U/L (26-192) Creatine Kinase MB (Mass) 1.1 ng/mL (0.0-3.6) Creatine Kinase MB Relative Index % (0-4) Troponin I Quantitative 0.030 ng/mL (0.000-0.055) YM-Jgc-S-Type Natriuretic Peptide 1188 pg/mL (0-124) Total Protein 8.2 g/dL (6.4-8.2) Albumin 2.7 g/dL (3.4-5.0) Albumin/Globulin Ratio 0.5 (1.0-1.7) Lipase 183 U/L (73-393) Laboratory Tests Test 12/13/18 11:15 White Blood Count 4.2 x10^3/uL (4.0-11.0) Red Blood Count 2.75 x10^6/uL (3.50-5.40) Hemoglobin 8.2 g/dL (12.0-15.5) Hematocrit 25.0 % (36.0-47.0) Mean Corpuscular Volume 91 fL (79-100) Mean Corpuscular Hemoglobin 30 pg (25-35) Mean Corpuscular Hemoglobin Concent 33 g/dL (31-37) Red Cell Distribution Width 17.4 % (11.5-14.5) Platelet Count 152 x10^3/uL (140-400) Neutrophils (%) (Auto) 79 % (31-73) Lymphocytes (%) (Auto) 14 % (24-48) Monocytes (%) (Auto) 6 % (0-9) Eosinophils (%) (Auto) 1 % (0-3) Basophils (%) (Auto) 1 % (0-3) Neutrophils # (Auto) 3.3 x10^3uL (1.8-7.7) Lymphocytes # (Auto) 0.6 x10^3/uL (1.0-4.8) Monocytes # (Auto) 0.2 x10^3/uL (0.0-1.1) Eosinophils # (Auto) 0.0 x10^3/uL (0.0-0.7) Basophils # (Auto) 0.0 x10^3/uL (0.0-0.2) Prothrombin Time 22.0 SEC (11.7-14.0) Prothromb Time International Ratio 2.0 (0.8-1.1) Sodium Level 140 mmol/L (136-145) Potassium Level 4.1 mmol/L (3.5-5.1) Chloride Level 104 mmol/L (98-107) Carbon Dioxide Level 26 mmol/L (21-32) Anion Gap 10 (6-14) Blood Urea Nitrogen 66 mg/dL (7-20) Creatinine 2.1 mg/dL (0.6-1.0) Estimated GFR (Cockcroft-Gault) 29.3 BUN/Creatinine Ratio 31 (6-20) Glucose Level 92 mg/dL (70-99) Calcium Level 9.7 mg/dL (8.5-10.1) Total Bilirubin 0.4 mg/dL (0.2-1.0) Aspartate Amino Transf (AST/SGOT) 21 U/L (15-37) Alanine Aminotransferase (ALT/SGPT) 17 U/L (14-59) Alkaline Phosphatase 84 U/L (46-116) Creatine Kinase 50 U/L (26-192) Creatine Kinase MB (Mass) 1.1 ng/mL (0.0-3.6) Creatine Kinase MB Relative Index % (0-4) Troponin I Quantitative 0.030 ng/mL (0.000-0.055) NJ-Wkh-E-Type Natriuretic Peptide 1188 pg/mL (0-124) Total Protein 8.2 g/dL (6.4-8.2) Albumin 2.7 g/dL (3.4-5.0) Albumin/Globulin Ratio 0.5 (1.0-1.7) Lipase 183 U/L (73-393) Review All relevant outside records, renal labs, imaging studies, telemetry/EKG's were reviewed. Images Images CxR-- 1.Central vascular congestion and interstitial thickening. Findings may represent mild edema or an atypical infectious process. 2. Fullness of the right hilar region. This could be due to vascular congestion however adenopathy or mass cannot be completely excluded. Consider short-term follow-up two-view chest radiograph versus contrast enhanced CT chest for further evaluation. CT chest w/o contrast- . Bilateral axillary lymphadenopathy is similar compared with the 2006 exam, no new convincing mediastinal or hilar lymphadenopathy. There are some new foci of subpleural noncalcified density of the right lower and right upper lobes for which short-term follow-up imaging such as in 3 months is recommended. If there is strong clinical suspicion for malignancy, PET CT could be beneficial. Another focus of irregular nodular density of the right upper lobe is stable in appearance. 2. There is coronary calcification. 3. There is again significant enlargement of the heart. 4. There is again thyromegaly and likely thyroid nodules. SHEILA CREWS MD December 13, 2018 14:17
--- NOTE | 2018-12-13 14:42 | CARD ---
MR#: [id number] Date of Study: 12/13/2018 Ordering Physician: LAMONT ZARATE, Referring Physician: LAMONT ZARATE, Tech: Jessika Byrd RDCS APPROVED REPORT EXAM: Two-dimensional and M-mode echocardiogram with Doppler and color Doppler. Other Information Quality : Good INDICATION Murmur 2D DIMENSIONS RVDd2.7 (2.9-3.5cm)Left Atrium(2D)3.4 (1.6-4.0cm) IVSd1.6 (0.7-1.1cm)Aortic Root(2D)2.8 (2.0-3.7cm) LVDd4.4 (3.9-5.9cm)LVOT Diameter2.0 (1.8-2.4cm) PWd1.4 (0.7-1.1cm)LVDs3.0 (2.5-4.0cm) FS (%) 31.7 %SV53.5 ml LVEF(%)59.9 (>50%) M-Mode DIMENSIONS Aortic Cusp Exc1.64 (1.5-2.0cm) Aortic Valve AoV Peak Matthew.367.0cm/sAoV VTI60.0cm AO Peak GR.54.0mmHgLVOT Peak Matthew.148.2cm/s LVOT VTI 32.24cmAO Mean GR.23mmHg JOCELYN (VMAX)1.77al7DER (VTI)1.62cm2 Mitral Valve MV E Rdrymbvg588.7cm/sMV DECEL [id number] MV A Pdtplwog173.4cm/sMV GSN87sr E/A Ratio1.2MVA (PHT)3.35cm2 TDI E/Lateral E'13.4E/Medial E'16.3 Tricuspid Valve TR P. Zxwffstm560bm/sRAP EZTPGPXC8ieFp TR Peak Gr.59baQmWKOO78kiUk Pulmonary Vein S1 Ojgqgngq07.7cm/sD2 Fsecgzel23.4cm/s LEFT VENTRICLE The left ventricle is normal size. There is mild to moderate concentric left ventricular hypertrophy. The left ventricular systolic function is normal. The Ejection Fraction is 60-65%. There is normal L V segmental wall motion. RIGHT VENTRICLE The right ventricle is normal size. The right ventricular systolic function is normal. ATRIA The left atrium size is normal. The right atrium size is normal. The interatrial septum is intact wit h no evidence for an atrial septal defect or patent foramen ovale as noted on 2-D or Doppler imaging. AORTIC VALVE The aortic valve is calcified and displays decreased opening. Doppler and Color Flow revealed no sign ificant aortic regurgitation. Calculated aortic valve area is 1.6 cm2 with maximum pressure gradient of 54 mmHg and mean pressure gradient of 23 mmHg. Doppler and color-flow analysis revealed mild aorti c stenosis. MITRAL VALVE The mitral valve is calcified but opens well. Mitral annular calcification is moderate. There is no e vidence of mitral valve prolapse. There is no mitral valve stenosis. Doppler and Color-flow revealed trace mitral regurgitation. TRICUSPID VALVE The tricuspid valve is normal in structure and function. Doppler and Color Flow revealed mild tricusp id regurgitation. There is moderate pulmonary hypertension. The PA pressure was estimated at 49 mmHg. There is no tricuspid valve stenosis. PULMONIC VALVE The pulmonic valve is not well visualized. Doppler and Color Flow revealed mild pulmonic valvular reg urgitation. There is no pulmonic valvular stenosis. GREAT VESSELS The aortic root is normal in size. The ascending aorta is normal in size. The IVC is normal in size a nd collapses >50% with inspiration. PERICARDIAL EFFUSION There is no evidence of significant pericardial effusion. Critical Notification Critical Value: No <Conclusion> The left ventricular systolic function is normal. The Ejection Fraction is 60-65%. There is normal LV segmental wall motion. Mild aortic stenosis. Trace mitral regurgitation. Mild tricuspid regurgitation. The PA pressure was estimated at 49 mmHg. There is no evidence of significant pericardial effusion. Signed by : Jossue Mills, Electronically Approved : 12/13/2018 14:42:20
[2018-12-13] MEDS ORDERED: AZAT50TA PO (14:45)
[2018-12-13] MEDS ORDERED: FUROSEMIDE 40 MG/4 ML VIAL. IVP ONE (14:45)
[2018-12-13 15:00] VITALS: BP 169/80
[2018-12-13] MEDS: FUROSEMIDE 40 MG TABLET. PO SCH (15:00)
[2018-12-13] MEDS ORDERED: LABETALOL 20 MG/4 ML DISP.SYRIN. IVP PRN (15:15)
[2018-12-13] MEDS: IPRATRPIUM/ALBUTEROL 0.5/2.5MG 3 ML NEBU. NEB SCH ×2 (16:06→19:56)
[2018-12-13] MEDS: CALCIUM ACETATE 667 MG CAPSULE PO SCH (17:40)
[2018-12-13] MEDS: azaTHIOprine 50 MG TABLET PO SCH (17:40)
--- NOTE | 2018-12-13 17:51 | RAD ---
Bilateral lower extremity venous doppler ultrasound Indication:LEG SWELLING

IMP: No DVT seen in visualized veins . Technique: Color Doppler, grayscale, and spectral waveform analysis is used to evaluate the right and left lower extremity deep venous system, including the common femoral vein, superficial femoral vein, popliteal vein, and visualized calf veins. Right leg: No evidence of deep venous thrombosis. Normal response to augmentation, normal compressibility and normal phasicity is demonstrated. Visualized calf veins are patent. Small lymph nodes are noted in the groin with a benign architecture. Left leg: No evidence of deep venous thrombosis. Normal response to augmentation, normal compressibility and normal phasicity is demonstrated. Visualized calf veins are patent. Small lymph nodes are identified in the groin with benign architecture. Impression: Negative for deep venous thrombosis Electronically signed by: Blayne Heard MD (12/13/2018 5:48 PM) [facility]
[2018-12-13 19:56] VITALS: BP 127/66
[2018-12-13] MEDS: BUDESONIDE 0.5 MG/2 ML NEBU. NEB SCH (19:56)
[2018-12-13] MEDS ORDERED: NIACIN ER 500 MG TABLET.ER PO SCH (21:00)
[2018-12-13] MEDS ORDERED: METOPROLOL TART IMMED RELEASE 50 MG TABLET. PO SCH (21:00)
[2018-12-13] MEDS ORDERED: ATORVASTATIN CALCIUM 40 MG TABLET. PO SCH (21:00)
[2018-12-13 23:49] VITALS: BP 144/82
[2018-12-14 03:27] VITALS: BP 142/72
[2018-12-14 04:48] LABS: BASO % 0 % (0-3); EOS # 0.1 x10^3/uL (0.0-0.7); EOS % 2 % (0-3); HEMATOCRIT 24.6 % (36.0-47.0); HEMOGLOBIN 8.1 g/dL (12.0-15.5); LYMPH # 0.6 x10^3/uL (1.0-4.8); LYMPH % 16 % (24-48); MEAN CORPUSCULAR HEMOGLOBIN 30 pg (25-35); MEAN CORPUSCULAR HGB CONC 33 g/dL (31-37); MEAN CORPUSCULAR VOLUME 91 fL (79-100); MONO # 0.2 x10^3/uL (0.0-1.1); MONO % 7 % (0-9); NEUT # 2.7 x10^3uL (1.8-7.7); NEUT % 75 % (31-73); PLATELET COUNT 157 x10^3/uL (140-400); WHITE BLOOD COUNT 3.6 x10^3/uL (4.0-11.0)
[2018-12-14 04:59] LABS: CALCIUM 9.1 mg/dL (8.5-10.1); CREATININE 2.1 mg/dL (0.6-1.0); GFR 29.3
[2018-12-14 05:04] LABS: ALBUMIN 2.4 g/dL (3.4-5.0); ALBUMIN/GLOBULIN RATIO 0.5 (1.0-1.7); TOTAL BILIRUBIN 0.3 mg/dL (0.2-1.0); TOTAL PROTEIN 7.6 g/dL (6.4-8.2)
[2018-12-14 05:08] LABS: CHOLESTEROL/HDL RATIO 2.6
[2018-12-14 07:00] VITALS: BP 119/68
[2018-12-14] MEDS ORDERED: PANTOPRAZOLE 40 MG TABLET.DR. PO SCH (07:30)
[2018-12-14] MEDS: azaTHIOprine 50 MG TABLET PO SCH (07:54)
--- NOTE | 2018-12-14 07:58 | PDOC ---
PROGRESS NOTES Chief Complaint Chief Complaint 1. Chest pain: potentially could be from arrhythmia given her symptom of palpitations. EKG SR, LVH with no significant changes by comparison 2. Acute on chronic diastolic CHF 3. Valvular insufficiency/diastolic murmur 4. PAFIB: maintaining SR 5. Hx of lupus/antiphospholipid antibody syndrome with past PE 6. HTN: labile 7. HLP 8. Anemia of chronic disease with prior hx of thrombocytopenia and leukopenia: ruled as an effect from immunosuppression 9. CKD3: per past chart review 10. Hx of RA: not sure if she is still on imuran, but claims not being on steroids nor methotrexate anymore. 11. Thyromegaly/nodules: per CT 12. COPD/pulmonary HTN History of Present Illness History of Present Illness Ms Caruso is a 58yo F who states she was at work,lifting a heavy box, when she began experiencing pressure in her chest, associated with shortness of breath. She did not have any nausea, vomiting, or diaphoresis. She states that taking a deep breath seems to worsen her pain. She states the pain lasted about 15 minutes, and then gradually improved, and then completely resolved. She has been asymptomatic since EMS arrived at the site of her work. She does have a history of atrial fibrillation, and takes Xarelto, as well as a history of congestive heart failure and hypertension. CT chest/abd/pelvis revealed a uterine myoma and chest and abdominal lymphadenopathy. Admitted for acute CHF exacerbation with cardiology and nephrology consultation. she is feeling better today, however has an ingrown toenail she would like e valuated Vitals Vitals Vital Signs Date Time Temp Pulse Resp B/P (MAP) Pulse Ox O2 Delivery O2 Flow Rate FiO2 12/14/18 07:00 98.4 80 18 119/68 (85) 99 Room Air 98.4 Physical Exam General: Alert, Oriented X3, Cooperative, No acute distress Heart: Regular rate (SR), Other (diastolic murmur loudest to erb 4/6; JVD, + hepatojugular reflux) Abdomen: Soft, No tenderness Extremities: No cyanosis, Other (2+ bilateral LE pitting edema) Skin: No breakdown, No significant lesion Labs LABS Laboratory Tests Test 12/13/18 11:15 12/13/18 14:47 12/13/18 19:00 12/14/18 04:15 White Blood Count 4.2 x10^3/uL (4.0-11.0) 3.6 x10^3/uL (4.0-11.0) Red Blood Count 2.75 x10^6/uL (3.50-5.40) 2.70 x10^6/uL (3.50-5.40) Hemoglobin 8.2 g/dL (12.0-15.5) 8.1 g/dL (12.0-15.5) Hematocrit 25.0 % (36.0-47.0) 24.6 % (36.0-47.0) Mean Corpuscular Volume 91 fL (79-100) 91 fL (79-100) Mean Corpuscular Hemoglobin 30 pg (25-35) 30 pg (25-35) Mean Corpuscular Hemoglobin Concent 33 g/dL (31-37) 33 g/dL (31-37) Red Cell Distribution Width 17.4 % (11.5-14.5) 17.0 % (11.5-14.5) Platelet Count 152 x10^3/uL (140-400) 157 x10^3/uL (140-400) Neutrophils (%) (Auto) 79 % (31-73) 75 % (31-73) Lymphocytes (%) (Auto) 14 % (24-48) 16 % (24-48) Monocytes (%) (Auto) 6 % (0-9) 7 % (0-9) Eosinophils (%) (Auto) 1 % (0-3) 2 % (0-3) Basophils (%) (Auto) 1 % (0-3) 0 % (0-3) Neutrophils # (Auto) 3.3 x10^3uL (1.8-7.7) 2.7 x10^3uL (1.8-7.7) Lymphocytes # (Auto) 0.6 x10^3/uL (1.0-4.8) 0.6 x10^3/uL (1.0-4.8) Monocytes # (Auto) 0.2 x10^3/uL (0.0-1.1) 0.2 x10^3/uL (0.0-1.1) Eosinophils # (Auto) 0.0 x10^3/uL (0.0-0.7) 0.1 x10^3/uL (0.0-0.7) Basophils # (Auto) 0.0 x10^3/uL (0.0-0.2) 0.0 x10^3/uL (0.0-0.2) Prothrombin Time 22.0 SEC (11.7-14.0) Prothromb Time International Ratio 2.0 (0.8-1.1) Sodium Level 140 mmol/L (136-145) 138 mmol/L (136-145) Potassium Level 4.1 mmol/L (3.5-5.1) 4.0 mmol/L (3.5-5.1) Chloride Level 104 mmol/L (98-107) 105 mmol/L (98-107) Carbon Dioxide Level 26 mmol/L (21-32) 26 mmol/L (21-32) Anion Gap 10 (6-14) 7 (6-14) Blood Urea Nitrogen 66 mg/dL (7-20) 67 mg/dL (7-20) Creatinine 2.1 mg/dL (0.6-1.0) 2.1 mg/dL (0.6-1.0) Estimated GFR (Cockcroft-Gault) 29.3 29.3 BUN/Creatinine Ratio 31 (6-20) 32 (6-20) Glucose Level 92 mg/dL (70-99) 98 mg/dL (70-99) Calcium Level 9.7 mg/dL (8.5-10.1) 9.1 mg/dL (8.5-10.1) Total Bilirubin 0.4 mg/dL (0.2-1.0) 0.3 mg/dL (0.2-1.0) Aspartate Amino Transf (AST/SGOT) 21 U/L (15-37) 19 U/L (15-37) Alanine Aminotransferase (ALT/SGPT) 17 U/L (14-59) 13 U/L (14-59) Alkaline Phosphatase 84 U/L (46-116) 73 U/L (46-116) Creatine Kinase 50 U/L (26-192) Creatine Kinase MB (Mass) 1.1 ng/mL (0.0-3.6) Creatine Kinase MB Relative Index % (0-4) Troponin I Quantitative 0.030 ng/mL (0.000-0.055) 0.031 ng/mL (0.000-0.055) 0.032 ng/mL (0.000-0.055) IY-Koo-K-Type Natriuretic Peptide 1188 pg/mL (0-124) Total Protein 8.2 g/dL (6.4-8.2) 7.6 g/dL (6.4-8.2) Albumin 2.7 g/dL (3.4-5.0) 2.4 g/dL (3.4-5.0) Albumin/Globulin Ratio 0.5 (1.0-1.7) 0.5 (1.0-1.7) Lipase 183 U/L (73-393) Magnesium Level 2.3 mg/dL (1.8-2.4) Thyroid Stimulating Hormone (TSH) 0.749 uIU/mL (0.358-3.74) Triglycerides Level 49 mg/dL (0-150) Cholesterol Level 97 mg/dL (0-200) LDL Cholesterol, Calculated 49 mg/dL (0-100) VLDL Cholesterol, Calculated 10 mg/dL (0-40) Non-HDL Cholesterol Calculated 59 mg/dL (0-129) HDL Cholesterol 38 mg/dL (40-60) Cholesterol/HDL Ratio 2.6 Assessment and Plan Assessmemt and Plan Problems Medical Problems: (1) Anemia Status: Acute (2) Chest pain Status: Acute (3) Congestive heart failure Status: Acute (4) Renal insufficiency Status: Acute Comment Review of Relevant I have reviewed the following items gregorio (where applicable) has been applied. Labs Laboratory Tests Test 12/13/18 11:15 12/13/18 14:47 12/13/18 19:00 12/14/18 04:15 White Blood Count 4.2 x10^3/uL (4.0-11.0) 3.6 x10^3/uL (4.0-11.0) Red Blood Count 2.75 x10^6/uL (3.50-5.40) 2.70 x10^6/uL (3.50-5.40) Hemoglobin 8.2 g/dL (12.0-15.5) 8.1 g/dL (12.0-15.5) Hematocrit 25.0 % (36.0-47.0) 24.6 % (36.0-47.0) Mean Corpuscular Volume 91 fL (79-100) 91 fL (79-100) Mean Corpuscular Hemoglobin 30 pg (25-35) 30 pg (25-35) Mean Corpuscular Hemoglobin Concent 33 g/dL (31-37) 33 g/dL (31-37) Red Cell Distribution Width 17.4 % (11.5-14.5) 17.0 % (11.5-14.5) Platelet Count 152 x10^3/uL (140-400) 157 x10^3/uL (140-400) Neutrophils (%) (Auto) 79 % (31-73) 75 % (31-73) Lymphocytes (%) (Auto) 14 % (24-48) 16 % (24-48) Monocytes (%) (Auto) 6 % (0-9) 7 % (0-9) Eosinophils (%) (Auto) 1 % (0-3) 2 % (0-3) Basophils (%) (Auto) 1 % (0-3) 0 % (0-3) Neutrophils # (Auto) 3.3 x10^3uL (1.8-7.7) 2.7 x10^3uL (1.8-7.7) Lymphocytes # (Auto) 0.6 x10^3/uL (1.0-4.8) 0.6 x10^3/uL (1.0-4.8) Monocytes # (Auto) 0.2 x10^3/uL (0.0-1.1) 0.2 x10^3/uL (0.0-1.1) Eosinophils # (Auto) 0.0 x10^3/uL (0.0-0.7) 0.1 x10^3/uL (0.0-0.7) Basophils # (Auto) 0.0 x10^3/uL (0.0-0.2) 0.0 x10^3/uL (0.0-0.2) Prothrombin Time 22.0 SEC (11.7-14.0) Prothromb Time International Ratio 2.0 (0.8-1.1) Sodium Level 140 mmol/L (136-145) 138 mmol/L (136-145) Potassium Level 4.1 mmol/L (3.5-5.1) 4.0 mmol/L (3.5-5.1) Chloride Level 104 mmol/L (98-107) 105 mmol/L (98-107) Carbon Dioxide Level 26 mmol/L (21-32) 26 mmol/L (21-32) Anion Gap 10 (6-14) 7 (6-14) Blood Urea Nitrogen 66 mg/dL (7-20) 67 mg/dL (7-20) Creatinine 2.1 mg/dL (0.6-1.0) 2.1 mg/dL (0.6-1.0) Estimated GFR (Cockcroft-Gault) 29.3 29.3 BUN/Creatinine Ratio 31 (6-20) 32 (6-20) Glucose Level 92 mg/dL (70-99) 98 mg/dL (70-99) Calcium Level 9.7 mg/dL (8.5-10.1) 9.1 mg/dL (8.5-10.1) Total Bilirubin 0.4 mg/dL (0.2-1.0) 0.3 mg/dL (0.2-1.0) Aspartate Amino Transf (AST/SGOT) 21 U/L (15-37) 19 U/L (15-37) Alanine Aminotransferase (ALT/SGPT) 17 U/L (14-59) 13 U/L (14-59) Alkaline Phosphatase 84 U/L (46-116) 73 U/L (46-116) Creatine Kinase 50 U/L (26-192) Creatine Kinase MB (Mass) 1.1 ng/mL (0.0-3.6) Creatine Kinase MB Relative Index % (0-4) Troponin I Quantitative 0.030 ng/mL (0.000-0.055) 0.031 ng/mL (0.000-0.055) 0.032 ng/mL (0.000-0.055) XF-Uba-S-Type Natriuretic Peptide 1188 pg/mL (0-124) Total Protein 8.2 g/dL (6.4-8.2) 7.6 g/dL (6.4-8.2) Albumin 2.7 g/dL (3.4-5.0) 2.4 g/dL (3.4-5.0) Albumin/Globulin Ratio 0.5 (1.0-1.7) 0.5 (1.0-1.7) Lipase 183 U/L (73-393) Magnesium Level 2.3 mg/dL (1.8-2.4) Thyroid Stimulating Hormone (TSH) 0.749 uIU/mL (0.358-3.74) Triglycerides Level 49 mg/dL (0-150) Cholesterol Level 97 mg/dL (0-200) LDL Cholesterol, Calculated 49 mg/dL (0-100) VLDL Cholesterol, Calculated 10 mg/dL (0-40) Non-HDL Cholesterol Calculated 59 mg/dL (0-129) HDL Cholesterol 38 mg/dL (40-60) Cholesterol/HDL Ratio 2.6 Laboratory Tests Test 12/13/18 11:15 12/13/18 14:47 12/13/18 19:00 12/14/18 04:15 White Blood Count 4.2 x10^3/uL (4.0-11.0) 3.6 x10^3/uL (4.0-11.0) Red Blood Count 2.75 x10^6/uL (3.50-5.40) 2.70 x10^6/uL (3.50-5.40) Hemoglobin 8.2 g/dL (12.0-15.5) 8.1 g/dL (12.0-15.5) Hematocrit 25.0 % (36.0-47.0) 24.6 % (36.0-47.0) Mean Corpuscular Volume 91 fL (79-100) 91 fL (79-100) Mean Corpuscular Hemoglobin 30 pg (25-35) 30 pg (25-35) Mean Corpuscular Hemoglobin Concent 33 g/dL (31-37) 33 g/dL (31-37) Red Cell Distribution Width 17.4 % (11.5-14.5) 17.0 % (11.5-14.5) Platelet Count 152 x10^3/uL (140-400) 157 x10^3/uL (140-400) Neutrophils (%) (Auto) 79 % (31-73) 75 % (31-73) Lymphocytes (%) (Auto) 14 % (24-48) 16 % (24-48) Monocytes (%) (Auto) 6 % (0-9) 7 % (0-9) Eosinophils (%) (Auto) 1 % (0-3) 2 % (0-3) Basophils (%) (Auto) 1 % (0-3) 0 % (0-3) Neutrophils # (Auto) 3.3 x10^3uL (1.8-7.7) 2.7 x10^3uL (1.8-7.7) Lymphocytes # (Auto) 0.6 x10^3/uL (1.0-4.8) 0.6 x10^3/uL (1.0-4.8) Monocytes # (Auto) 0.2 x10^3/uL (0.0-1.1) 0.2 x10^3/uL (0.0-1.1) Eosinophils # (Auto) 0.0 x10^3/uL (0.0-0.7) 0.1 x10^3/uL (0.0-0.7) Basophils # (Auto) 0.0 x10^3/uL (0.0-0.2) 0.0 x10^3/uL (0.0-0.2) Prothrombin Time 22.0 SEC (11.7-14.0) Prothromb Time International Ratio 2.0 (0.8-1.1) Sodium Level 140 mmol/L (136-145) 138 mmol/L (136-145) Potassium Level 4.1 mmol/L (3.5-5.1) 4.0 mmol/L (3.5-5.1) Chloride Level 104 mmol/L (98-107) 105 mmol/L (98-107) Carbon Dioxide Level 26 mmol/L (21-32) 26 mmol/L (21-32) Anion Gap 10 (6-14) 7 (6-14) Blood Urea Nitrogen 66 mg/dL (7-20) 67 mg/dL (7-20) Creatinine 2.1 mg/dL (0.6-1.0) 2.1 mg/dL (0.6-1.0) Estimated GFR (Cockcroft-Gault) 29.3 29.3 BUN/Creatinine Ratio 31 (6-20) 32 (6-20) Glucose Level 92 mg/dL (70-99) 98 mg/dL (70-99) Calcium Level 9.7 mg/dL (8.5-10.1) 9.1 mg/dL (8.5-10.1) Total Bilirubin 0.4 mg/dL (0.2-1.0) 0.3 mg/dL (0.2-1.0) Aspartate Amino Transf (AST/SGOT) 21 U/L (15-37) 19 U/L (15-37) Alanine Aminotransferase (ALT/SGPT) 17 U/L (14-59) 13 U/L (14-59) Alkaline Phosphatase 84 U/L (46-116) 73 U/L (46-116) Creatine Kinase 50 U/L (26-192) Creatine Kinase MB (Mass) 1.1 ng/mL (0.0-3.6) Creatine Kinase MB Relative Index % (0-4) Troponin I Quantitative 0.030 ng/mL (0.000-0.055) 0.031 ng/mL (0.000-0.055) 0.032 ng/mL (0.000-0.055) BX-Vhk-X-Type Natriuretic Peptide 1188 pg/mL (0-124) Total Protein 8.2 g/dL (6.4-8.2) 7.6 g/dL (6.4-8.2) Albumin 2.7 g/dL (3.4-5.0) 2.4 g/dL (3.4-5.0) Albumin/Globulin Ratio 0.5 (1.0-1.7) 0.5 (1.0-1.7) Lipase 183 U/L (73-393) Magnesium Level 2.3 mg/dL (1.8-2.4) Thyroid Stimulating Hormone (TSH) 0.749 uIU/mL (0.358-3.74) Triglycerides Level 49 mg/dL (0-150) Cholesterol Level 97 mg/dL (0-200) LDL Cholesterol, Calculated 49 mg/dL (0-100) VLDL Cholesterol, Calculated 10 mg/dL (0-40) Non-HDL Cholesterol Calculated 59 mg/dL (0-129) HDL Cholesterol 38 mg/dL (40-60) Cholesterol/HDL Ratio 2.6 Medications Current Medications Aspirin (Children'S Aspirin) 162 mg 1X ONCE PO Last administered on 12/13/18at 11:24; Start 12/13/18 at 11:15; Stop 12/13/18 at 11:16; Status DC Nitroglycerin (Nitro-Bid Oint) 1 inch 1X ONCE TP Last administered on 12/13/18at 11:25; Start 12/13/18 at 11:15; Stop 12/13/18 at 11:16; Status DC Calcium Acetate (Phoslo) 667 mg BIDWMEALS PO Last administered on 12/13/18at 17:40; Start 12/13/18 at 17:00 Enoxaparin Sodium (Lovenox 100mg Syringe) 100 mg DAILY SQ ; Start 12/14/18 at 09:00; Status UNV Folic Acid (Folic Acid) 1 mg DAILY PO ; Start 12/14/18 at 09:00 Furosemide (Lasix) 40 mg BID92 PO ; Start 12/13/18 at 15:00 Lisinopril (Prinivil) 10 mg DAILY PO ; Start 12/14/18 at 09:00; Status UNV Metoprolol Succinate (Toprol Xl) 50 mg DAILY PO ; Start 12/14/18 at 09:00; Status Cancel Niacin (Slo-Niacin) 500 mg HS PO ; Start 12/13/18 at 21:00; Status Cancel Pantoprazole Sodium (Protonix) 40 mg DAILYAC PO ; Start 12/14/18 at 07:30 Tramadol HCl (Ultram) 50 mg DAILY PRN PO PAIN; Start 12/13/18 at 12:45 Amlodipine Besylate (Norvasc) 5 mg DAILY PO ; Start 12/14/18 at 09:00 Polyethylene Glycol (miraLAX PACKET) 17 gm DAILY PO ; Start 12/14/18 at 09:00 Potassium Chloride (Klor-Con) 20 meq DAILYWBKFT PO ; Start 12/14/18 at 08:00 Atorvastatin Calcium (Lipitor) 40 mg QHS PO Last administered on 12/13/18at 20:37; Start 12/13/18 at 21:00 Metoprolol Tartrate (Lopressor) 100 mg QHS PO Last administered on 12/13/18at 20:37; Start 12/13/18 at 21:00 Rivaroxaban (Xarelto) 10 mg DAILY PO ; Start 12/14/18 at 09:00 Albuterol/ Ipratropium (Duoneb) 3 ml RTQID NEB Last administered on 12/13/18at 19:56; Start 12/13/18 at 16:00 Budesonide (Pulmicort) 0.5 mg RTBID NEB Last administered on 12/13/18at 19:56; Start 12/13/18 at 20:00 Furosemide (Lasix) 40 mg 1X ONCE IVP Last administered on 12/13/18at 15:09; Start 12/13/18 at 14:45; Stop 12/13/18 at 14:46; Status DC Aspirin (Ecotrin) 81 mg DAILYWBKFT PO ; Start 12/14/18 at 08:00 Labetalol HCl (Normodyne Iv Push) 20 mg PRN Q2HR PRN IVP HYPERTENSION, SEE COMMENTS; Start 12/13/18 at 15:15 Azathioprine (Imuran) 50 mg DAILY PO Last administered on 12/13/18at 17:40; Start 12/13/18 at 17:00 Active Scripts Active Reported Metoprolol Succinate ( Xl ) (Metoprolol Succinate) 100 Mg Tab.er.24h 100 Mg PO QHS Azathioprine 50 Mg Tablet 40 Mg PO DAILY Symbicort 160-4.5 Mcg Inhaler (Budesonide/Formoterol Fumarate) 10.2 Gm Hfa.aer.ad 1 Puff IH BID Spiriva (Tiotropium [place]) 18 Mcg Cap.w.dev 2 Inh IH DAILY Proair Hfa Inhaler (Albuterol Sulfate) 8.5 Gm Hfa.aer.ad 1 Puff INH PRN Q6HRS PRN Xarelto (Rivaroxaban) 10 Mg Tablet 10 Mg PO DAILY Tribenzor 40-10-25 Mg Tablet (Olmesartan/Amlodipin/Hcthiazid) 1 Each Tablet 1 Each PO DAILY Atorvastatin Calcium 40 Mg Tablet 40 Mg PO HS Miralax (Polyethylene Glycol 3350) 17 Gm Powd.pack 1 Packet PO DAILY Phoslo (Calcium Acetate) 667 Mg Capsule 1 Cap PO BIDWMEALS K-Tab ER (Potassium Chloride) 20 Meq Tablet.er 20 Meq PO DAILY Pantoprazole Sodium 40 Mg Tablet.dr 40 Mg PO DAILY Furosemide 40 Mg Tablet 40 Mg PO BID92 Vitals/I & O Vital Sign - Last 24 Hours 12/13/18 12/13/18 12/13/18 12/13/18 10:50 11:25 13:40 15:00 Temp 98.4 96.7 98.2 98.4 96.7 98.2 Pulse 96 97 91 87 Resp 18 20 18 B/P (MAP) 169/82 (111) 173/81 165/82 (109) 169/80 (109) Pulse Ox 99 97 97 O2 Delivery Room Air Room Air Room Air 12/13/18 12/13/18 12/13/18 12/13/18 15:40 16:09 19:56 19:56 Temp 98.0 98.0 Pulse 85 Resp 16 B/P (MAP) 127/66 (86) Pulse Ox 95 O2 Delivery Room Air Room Air Room Air Room Air 12/13/18 12/13/18 12/13/18 12/13/18 19:57 20:00 20:37 23:49 Temp 98.5 98.5 Pulse 85 82 Resp 16 B/P (MAP) 127/66 144/82 (102) Pulse Ox 95 O2 Delivery Room Air Room Air Room Air 12/14/18 12/14/18 03:27 07:00 Temp 98.6 98.4 98.6 98.4 Pulse 84 80 Resp 20 18 B/P (MAP) 142/72 (95) 119/68 (85) Pulse Ox 94 99 O2 Delivery Room Air Room Air Intake and Output 12/13/18 12/13/18 12/14/18 15:00 23:00 07:00 Intake Total 200 ml 500 ml Output Total 250 ml 300 ml Balance -50 ml 200 ml Images ECHO - The left ventricular systolic function is normal. The Ejection Fraction is 60-65%. There is normal LV segmental wall motion. Mild aortic stenosis. Trace mitral regurgitation. Mild tricuspid regurgitation. The PA pressure was estimated at 49 mmHg. There is no evidence of significant pericardial effusion. PAMELA HDZ MD December 14, 2018 07:58
[2018-12-14] MEDS ORDERED: ASPIRIN ENTERIC COATED 81 MG TABLET.DR. PO SCH (08:00)
[2018-12-14] MEDS ORDERED: POTASSIUM CHLORIDE 20 MEQ TABLET.ER. PO SCH (08:00)
[2018-12-14] MEDS: CALCIUM ACETATE 667 MG CAPSULE PO SCH ×2 (08:27→16:14)
[2018-12-14] MEDS: FUROSEMIDE 40 MG TABLET. PO SCH ×2 (08:27→14:06)
[2018-12-14] MEDS: IPRATRPIUM/ALBUTEROL 0.5/2.5MG 3 ML NEBU. NEB SCH ×3 (08:32→16:22)
[2018-12-14] MEDS: BUDESONIDE 0.5 MG/2 ML NEBU. NEB SCH (08:33)
[2018-12-14] MEDS ORDERED: amLODIPine BESYLATE 5 MG TABLET PO SCH (09:00)
[2018-12-14] MEDS ORDERED: RIVAROXABAN 10 MG TABLET. PO SCH (09:00)
[2018-12-14] MEDS ORDERED: LISINOPRIL 10 MG TABLET PO SCH (09:00)
[2018-12-14] MEDS ORDERED: FOLIC ACID 1 MG TABLET. PO SCH (09:00)
[2018-12-14] MEDS ORDERED: POLYETHYLENE GLYCOL 3350 17 GM PACKET. PO SCH (09:00)
[2018-12-14] MEDS ORDERED: METOPROLOL SUCC 24HR ER 50 MG TAB.ER.24H. PO SCH (09:00)
[2018-12-14 11:02] VITALS: BP 143/70
--- NOTE | 2018-12-14 11:45 | NUR ---
SS following for discharge planning. SS reviewed pt chart. Pt is from home and is currently on room air. No discharge needs noted at this time. SS will continue to follow for pending discharge needs.
--- NOTE | 2018-12-14 13:19 | PDOC ---
SUBJECTIVE ROS No complaints, sitting up OBJECTIVE Vital Signs Vital Signs Date Time Temp Pulse Resp B/P (MAP) Pulse Ox O2 Delivery O2 Flow Rate FiO2 12/14/18 12:02 Room Air 12/14/18 11:02 97.6 77 18 143/70 (94) 100 97.6 I & 0 Intake and Output 12/14/18 07:00 Intake Total 700 ml Output Total 550 ml Balance 150 ml Intake Oral 700 ml Output Urine Total 550 ml PHYSICAL EXAM Physical Exam GEN: NAD HEEN: OM moist NECK: Supple CVS: RRR RESP: CTA , Non labored GI: BS + ve, NO Bruit, Non Tender, : [No CVA tenderness, no Suprapubic Tenderness, No Rodríguez NEURO- Grossly normal EXT-NO edema SKIN- No rash DIAGNOSIS/ASSESSMENT Assessment & Plan CKD stage 3 /4 - Baseline 2.1 since 03/2019 Stable renal function E-Lytes and acid base stable Monitor HTN - Continue Home meds AFib- On Xarelto Cardiology consulted Chest pain - Resolved Acute on chronic diastolic CHF Hx of lupus/antiphospholipid antibody syndrome with past PE COMMENT/RELEVANT DATA Meds Current Medications Medications (Trade) Dose Ordered Sig/Blaine Start Time Stop Time Status Last Admin Dose Admin Albuterol/ Ipratropium (Duoneb) 3 ml RTQID 12/13/18 16:00 12/14/18 12:02 3 ML Amlodipine Besylate (Norvasc) 5 mg DAILY 12/14/18 09:00 12/14/18 08:28 5 MG Aspirin (Children'S Aspirin) 162 mg 1X ONCE 12/13/18 11:15 12/13/18 11:16 DC 12/13/18 11:24 162 MG Aspirin (Ecotrin) 81 mg DAILYWBKFT 12/14/18 08:00 Atorvastatin Calcium (Lipitor) 40 mg QHS 12/13/18 21:00 12/13/18 20:37 40 MG Azathioprine (Imuran) 50 mg DAILY 12/13/18 17:00 12/14/18 07:54 50 MG Budesonide (Pulmicort) 0.5 mg RTBID 12/13/18 20:00 12/14/18 08:33 0.5 MG Calcium Acetate (Phoslo) 667 mg BIDWMEALS 12/13/18 17:00 12/14/18 08:27 667 MG Enoxaparin Sodium (Lovenox 100mg Syringe) 100 mg DAILY 12/14/18 09:00 UNV Folic Acid (Folic Acid) 1 mg DAILY 12/14/18 09:00 12/14/18 08:28 1 MG Furosemide (Lasix) 40 mg 1X ONCE 12/13/18 14:45 12/13/18 14:46 DC 12/13/18 15:09 40 MG Labetalol HCl (Normodyne Iv Push) 20 mg PRN Q2HR PRN 12/13/18 15:15 Lisinopril (Prinivil) 10 mg DAILY 12/14/18 09:00 UNV Metoprolol Succinate (Toprol Xl) 50 mg DAILY 12/14/18 09:00 Cancel Metoprolol Tartrate (Lopressor) 100 mg QHS 12/13/18 21:00 12/13/18 20:37 100 MG Niacin (Slo-Niacin) 500 mg HS 12/13/18 21:00 Cancel Nitroglycerin (Nitro-Bid Oint) 1 inch 1X ONCE 12/13/18 11:15 12/13/18 11:16 DC 12/13/18 11:25 1 INCH Pantoprazole Sodium (Protonix) 40 mg DAILYAC 12/14/18 07:30 12/14/18 08:29 40 MG Polyethylene Glycol (miraLAX PACKET) 17 gm DAILY 12/14/18 09:00 12/14/18 08:29 17 GM Potassium Chloride (Klor-Con) 20 meq DAILYWBKFT 12/14/18 08:00 12/14/18 08:28 20 MEQ Rivaroxaban (Xarelto) 10 mg DAILY 12/14/18 09:00 12/14/18 08:29 10 MG Tramadol HCl (Ultram) 50 mg DAILY PRN 12/13/18 12:45 Lab Laboratory Tests Test 12/13/18 14:47 12/13/18 19:00 12/14/18 04:15 Magnesium Level 2.3 mg/dL (1.8-2.4) Troponin I Quantitative 0.031 ng/mL (0.000-0.055) 0.032 ng/mL (0.000-0.055) Thyroid Stimulating Hormone (TSH) 0.749 uIU/mL (0.358-3.74) White Blood Count 3.6 x10^3/uL (4.0-11.0) Red Blood Count 2.70 x10^6/uL (3.50-5.40) Hemoglobin 8.1 g/dL (12.0-15.5) Hematocrit 24.6 % (36.0-47.0) Mean Corpuscular Volume 91 fL (79-100) Mean Corpuscular Hemoglobin 30 pg (25-35) Mean Corpuscular Hemoglobin Concent 33 g/dL (31-37) Red Cell Distribution Width 17.0 % (11.5-14.5) Platelet Count 157 x10^3/uL (140-400) Neutrophils (%) (Auto) 75 % (31-73) Lymphocytes (%) (Auto) 16 % (24-48) Monocytes (%) (Auto) 7 % (0-9) Eosinophils (%) (Auto) 2 % (0-3) Basophils (%) (Auto) 0 % (0-3) Neutrophils # (Auto) 2.7 x10^3uL (1.8-7.7) Lymphocytes # (Auto) 0.6 x10^3/uL (1.0-4.8) Monocytes # (Auto) 0.2 x10^3/uL (0.0-1.1) Eosinophils # (Auto) 0.1 x10^3/uL (0.0-0.7) Basophils # (Auto) 0.0 x10^3/uL (0.0-0.2) Sodium Level 138 mmol/L (136-145) Potassium Level 4.0 mmol/L (3.5-5.1) Chloride Level 105 mmol/L (98-107) Carbon Dioxide Level 26 mmol/L (21-32) Anion Gap 7 (6-14) Blood Urea Nitrogen 67 mg/dL (7-20) Creatinine 2.1 mg/dL (0.6-1.0) Estimated GFR (Cockcroft-Gault) 29.3 BUN/Creatinine Ratio 32 (6-20) Glucose Level 98 mg/dL (70-99) Calcium Level 9.1 mg/dL (8.5-10.1) Total Bilirubin 0.3 mg/dL (0.2-1.0) Aspartate Amino Transf (AST/SGOT) 19 U/L (15-37) Alanine Aminotransferase (ALT/SGPT) 13 U/L (14-59) Alkaline Phosphatase 73 U/L (46-116) Total Protein 7.6 g/dL (6.4-8.2) Albumin 2.4 g/dL (3.4-5.0) Albumin/Globulin Ratio 0.5 (1.0-1.7) Triglycerides Level 49 mg/dL (0-150) Cholesterol Level 97 mg/dL (0-200) LDL Cholesterol, Calculated 49 mg/dL (0-100) VLDL Cholesterol, Calculated 10 mg/dL (0-40) Non-HDL Cholesterol Calculated 59 mg/dL (0-129) HDL Cholesterol 38 mg/dL (40-60) Cholesterol/HDL Ratio 2.6 Results All relevant outside records, renal labs, imaging studies, telemetry/EKG's were reviewed. SHEILA CREWS MD December 14, 2018 13:19
--- NOTE | 2018-12-14 14:42 | PDOC ---
CARDIO Progress Notes Date and Time Date of Service 12/14/2018 Time of Evaluation 1410 Subjective Subjective: No Chest Pain, No shortness of breath, No Palpitations Vitals Vitals Vital Signs Date Time Temp Pulse Resp B/P (MAP) Pulse Ox O2 Delivery O2 Flow Rate FiO2 12/14/18 12:02 Room Air 12/14/18 11:02 97.6 77 18 143/70 (94) 100 97.6 Weight Weight [ ] Input and Output Intake and Output Intake and Output 12/14/18 06:59 Intake Total 700 ml Output Total 550 ml Balance 150 ml Intake Oral 700 ml Output Urine Total 550 ml Laboratory Labs Laboratory Tests Test 12/13/18 14:47 12/13/18 19:00 12/14/18 04:15 Magnesium Level 2.3 mg/dL (1.8-2.4) Troponin I Quantitative 0.031 ng/mL (0.000-0.055) 0.032 ng/mL (0.000-0.055) Thyroid Stimulating Hormone (TSH) 0.749 uIU/mL (0.358-3.74) White Blood Count 3.6 x10^3/uL (4.0-11.0) Red Blood Count 2.70 x10^6/uL (3.50-5.40) Hemoglobin 8.1 g/dL (12.0-15.5) Hematocrit 24.6 % (36.0-47.0) Mean Corpuscular Volume 91 fL (79-100) Mean Corpuscular Hemoglobin 30 pg (25-35) Mean Corpuscular Hemoglobin Concent 33 g/dL (31-37) Red Cell Distribution Width 17.0 % (11.5-14.5) Platelet Count 157 x10^3/uL (140-400) Neutrophils (%) (Auto) 75 % (31-73) Lymphocytes (%) (Auto) 16 % (24-48) Monocytes (%) (Auto) 7 % (0-9) Eosinophils (%) (Auto) 2 % (0-3) Basophils (%) (Auto) 0 % (0-3) Neutrophils # (Auto) 2.7 x10^3uL (1.8-7.7) Lymphocytes # (Auto) 0.6 x10^3/uL (1.0-4.8) Monocytes # (Auto) 0.2 x10^3/uL (0.0-1.1) Eosinophils # (Auto) 0.1 x10^3/uL (0.0-0.7) Basophils # (Auto) 0.0 x10^3/uL (0.0-0.2) Sodium Level 138 mmol/L (136-145) Potassium Level 4.0 mmol/L (3.5-5.1) Chloride Level 105 mmol/L (98-107) Carbon Dioxide Level 26 mmol/L (21-32) Anion Gap 7 (6-14) Blood Urea Nitrogen 67 mg/dL (7-20) Creatinine 2.1 mg/dL (0.6-1.0) Estimated GFR (Cockcroft-Gault) 29.3 BUN/Creatinine Ratio 32 (6-20) Glucose Level 98 mg/dL (70-99) Calcium Level 9.1 mg/dL (8.5-10.1) Total Bilirubin 0.3 mg/dL (0.2-1.0) Aspartate Amino Transf (AST/SGOT) 19 U/L (15-37) Alanine Aminotransferase (ALT/SGPT) 13 U/L (14-59) Alkaline Phosphatase 73 U/L (46-116) Total Protein 7.6 g/dL (6.4-8.2) Albumin 2.4 g/dL (3.4-5.0) Albumin/Globulin Ratio 0.5 (1.0-1.7) Triglycerides Level 49 mg/dL (0-150) Cholesterol Level 97 mg/dL (0-200) LDL Cholesterol, Calculated 49 mg/dL (0-100) VLDL Cholesterol, Calculated 10 mg/dL (0-40) Non-HDL Cholesterol Calculated 59 mg/dL (0-129) HDL Cholesterol 38 mg/dL (40-60) Cholesterol/HDL Ratio 2.6 Physical Exam HEENT: Neck Supple W Full Motion Chest: Symmetric LUNGS: Clear to Auscultation Heart: S1S2, RRR (SR), irregularly irregular Abdomen: Soft N/T Extremities: No Edema, No Calf Tenderness Neurology: alert, oriented, follow commands Assessment Assessment 1. Chest pain: potentially could be from arrhythmia given her symptom of p alpitations. EKG SR, LVH with no significant changes by comparison. None further 2. Acute on chronic diastolic CHF; compensated. EF and WM nml 3. Mild 4. PAFIB: maintaining SR 5. Hx of lupus/antiphospholipid antibody syndrome with past PE 6. HTN: controlled 7. HLP 8. Anemia of chronic disease with prior hx of thrombocytopenia and leukopenia: ruled as an effect from immunosuppression 9. CKD3: per past chart review 10. Hx of RA: not sure if she is still on imuran, but claims not being on steroids nor methotrexate anymore. 11. Thyromegaly/nodules: per CT 12. COPD/moderate pulmonary HTN Recommendations 1. Continue home lasix 2. At home xarelto 10 mg daily which is generally for VTE recurrent prevention. 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 3. ASA. Continue home BP regimen 4. MCOT as an outpt. Lexiscan as an outpt. 5. Follow up in 4 weeks. CURTIS DOE APRN December 14, 2018 14:42
[2018-12-14 15:00] VITALS: BP 131/76
--- NOTE | 2018-12-14 19:54 | PDOC3 ---
Discharge Summary Visit Information Date of Admission: December 13, 2018 Date of Discharge: December 14, 2018 Admitting Diagnosis: Chest pain Final Diagnosis Problems Medical Problems: (1) Anemia Status: Acute (2) Chest pain Status: Acute (3) Congestive heart failure Status: Acute (4) Renal insufficiency Status: Acute Brief Hospital Course Allergies Allergies Coded Allergies Type Severity Reaction Last Updated Verified No Known Drug Allergies 05/23/14 No Vital Signs Vital Signs Date Time Temp Pulse Resp B/P (MAP) Pulse Ox O2 Delivery O2 Flow Rate FiO2 12/14/18 16:23 Room Air 12/14/18 15:00 98.0 90 18 131/76 (94) 100 98.0 Lab Results Laboratory Tests Test 12/13/18 11:15 12/13/18 14:47 12/13/18 19:00 12/14/18 04:15 White Blood Count 4.2 x10^3/uL (4.0-11.0) 3.6 x10^3/uL (4.0-11.0) Red Blood Count 2.75 x10^6/uL (3.50-5.40) 2.70 x10^6/uL (3.50-5.40) Hemoglobin 8.2 g/dL (12.0-15.5) 8.1 g/dL (12.0-15.5) Hematocrit 25.0 % (36.0-47.0) 24.6 % (36.0-47.0) Mean Corpuscular Volume 91 fL (79-100) 91 fL (79-100) Mean Corpuscular Hemoglobin 30 pg (25-35) 30 pg (25-35) Mean Corpuscular Hemoglobin Concent 33 g/dL (31-37) 33 g/dL (31-37) Red Cell Distribution Width 17.4 % (11.5-14.5) 17.0 % (11.5-14.5) Platelet Count 152 x10^3/uL (140-400) 157 x10^3/uL (140-400) Neutrophils (%) (Auto) 79 % (31-73) 75 % (31-73) Lymphocytes (%) (Auto) 14 % (24-48) 16 % (24-48) Monocytes (%) (Auto) 6 % (0-9) 7 % (0-9) Eosinophils (%) (Auto) 1 % (0-3) 2 % (0-3) Basophils (%) (Auto) 1 % (0-3) 0 % (0-3) Neutrophils # (Auto) 3.3 x10^3uL (1.8-7.7) 2.7 x10^3uL (1.8-7.7) Lymphocytes # (Auto) 0.6 x10^3/uL (1.0-4.8) 0.6 x10^3/uL (1.0-4.8) Monocytes # (Auto) 0.2 x10^3/uL (0.0-1.1) 0.2 x10^3/uL (0.0-1.1) Eosinophils # (Auto) 0.0 x10^3/uL (0.0-0.7) 0.1 x10^3/uL (0.0-0.7) Basophils # (Auto) 0.0 x10^3/uL (0.0-0.2) 0.0 x10^3/uL (0.0-0.2) Prothrombin Time 22.0 SEC (11.7-14.0) Prothromb Time International Ratio 2.0 (0.8-1.1) Sodium Level 140 mmol/L (136-145) 138 mmol/L (136-145) Potassium Level 4.1 mmol/L (3.5-5.1) 4.0 mmol/L (3.5-5.1) Chloride Level 104 mmol/L (98-107) 105 mmol/L (98-107) Carbon Dioxide Level 26 mmol/L (21-32) 26 mmol/L (21-32) Anion Gap 10 (6-14) 7 (6-14) Blood Urea Nitrogen 66 mg/dL (7-20) 67 mg/dL (7-20) Creatinine 2.1 mg/dL (0.6-1.0) 2.1 mg/dL (0.6-1.0) Estimated GFR (Cockcroft-Gault) 29.3 29.3 BUN/Creatinine Ratio 31 (6-20) 32 (6-20) Glucose Level 92 mg/dL (70-99) 98 mg/dL (70-99) Calcium Level 9.7 mg/dL (8.5-10.1) 9.1 mg/dL (8.5-10.1) Total Bilirubin 0.4 mg/dL (0.2-1.0) 0.3 mg/dL (0.2-1.0) Aspartate Amino Transf (AST/SGOT) 21 U/L (15-37) 19 U/L (15-37) Alanine Aminotransferase (ALT/SGPT) 17 U/L (14-59) 13 U/L (14-59) Alkaline Phosphatase 84 U/L (46-116) 73 U/L (46-116) Creatine Kinase 50 U/L (26-192) Creatine Kinase MB (Mass) 1.1 ng/mL (0.0-3.6) Creatine Kinase MB Relative Index % (0-4) Troponin I Quantitative 0.030 ng/mL (0.000-0.055) 0.031 ng/mL (0.000-0.055) 0.032 ng/mL (0.000-0.055) DC-Cnd-N-Type Natriuretic Peptide 1188 pg/mL (0-124) Total Protein 8.2 g/dL (6.4-8.2) 7.6 g/dL (6.4-8.2) Albumin 2.7 g/dL (3.4-5.0) 2.4 g/dL (3.4-5.0) Albumin/Globulin Ratio 0.5 (1.0-1.7) 0.5 (1.0-1.7) Lipase 183 U/L (73-393) Magnesium Level 2.3 mg/dL (1.8-2.4) Thyroid Stimulating Hormone (TSH) 0.749 uIU/mL (0.358-3.74) Triglycerides Level 49 mg/dL (0-150) Cholesterol Level 97 mg/dL (0-200) LDL Cholesterol, Calculated 49 mg/dL (0-100) VLDL Cholesterol, Calculated 10 mg/dL (0-40) Non-HDL Cholesterol Calculated 59 mg/dL (0-129) HDL Cholesterol 38 mg/dL (40-60) Cholesterol/HDL Ratio 2.6 Laboratory Tests Test 12/14/18 04:15 White Blood Count 3.6 x10^3/uL (4.0-11.0) Red Blood Count 2.70 x10^6/uL (3.50-5.40) Hemoglobin 8.1 g/dL (12.0-15.5) Hematocrit 24.6 % (36.0-47.0) Mean Corpuscular Volume 91 fL (79-100) Mean Corpuscular Hemoglobin 30 pg (25-35) Mean Corpuscular Hemoglobin Concent 33 g/dL (31-37) Red Cell Distribution Width 17.0 % (11.5-14.5) Platelet Count 157 x10^3/uL (140-400) Neutrophils (%) (Auto) 75 % (31-73) Lymphocytes (%) (Auto) 16 % (24-48) Monocytes (%) (Auto) 7 % (0-9) Eosinophils (%) (Auto) 2 % (0-3) Basophils (%) (Auto) 0 % (0-3) Neutrophils # (Auto) 2.7 x10^3uL (1.8-7.7) Lymphocytes # (Auto) 0.6 x10^3/uL (1.0-4.8) Monocytes # (Auto) 0.2 x10^3/uL (0.0-1.1) Eosinophils # (Auto) 0.1 x10^3/uL (0.0-0.7) Basophils # (Auto) 0.0 x10^3/uL (0.0-0.2) Sodium Level 138 mmol/L (136-145) Potassium Level 4.0 mmol/L (3.5-5.1) Chloride Level 105 mmol/L (98-107) Carbon Dioxide Level 26 mmol/L (21-32) Anion Gap 7 (6-14) Blood Urea Nitrogen 67 mg/dL (7-20) Creatinine 2.1 mg/dL (0.6-1.0) Estimated GFR (Cockcroft-Gault) 29.3 BUN/Creatinine Ratio 32 (6-20) Glucose Level 98 mg/dL (70-99) Calcium Level 9.1 mg/dL (8.5-10.1) Total Bilirubin 0.3 mg/dL (0.2-1.0) Aspartate Amino Transf (AST/SGOT) 19 U/L (15-37) Alanine Aminotransferase (ALT/SGPT) 13 U/L (14-59) Alkaline Phosphatase 73 U/L (46-116) Total Protein 7.6 g/dL (6.4-8.2) Albumin 2.4 g/dL (3.4-5.0) Albumin/Globulin Ratio 0.5 (1.0-1.7) Triglycerides Level 49 mg/dL (0-150) Cholesterol Level 97 mg/dL (0-200) LDL Cholesterol, Calculated 49 mg/dL (0-100) VLDL Cholesterol, Calculated 10 mg/dL (0-40) Non-HDL Cholesterol Calculated 59 mg/dL (0-129) HDL Cholesterol 38 mg/dL (40-60) Cholesterol/HDL Ratio 2.6 Brief Hospital Course Ms Caruso is a 58yo F who states she was at work,lifting a heavy box, when she began experiencing pressure in her chest, associated with shortness of breath. She did not have any nausea, vomiting, or diaphoresis. She states that taking a deep breath seems to worsen her pain. She states the pain lasted about 15 minutes, and then gradually improved, and then completely resolved. She has been asymptomatic since EMS arrived at the site of her work. She does have a history of atrial fibrillation, and takes Xarelto, as well as a history of congestive heart failure and hypertension. CT chest/abd/pelvis revealed a uterine myoma and chest and abdominal lymphadenopathy. Admitted for acute CHF exacerbation with cardiology and nephrology consultation. She is feeling better today, however has an ingrown toenail she would like evaluated, given podiatry referral outpatient. Less than 30 minutes spent on discharge. A/P: Chest pain: potentially could be from arrhythmia given her symptom of palpitations. EKG SR, LVH with no significant changes by comparison. Resolved after diuresis Acute on chronic diastolic CHF; compensated. EF and WM nml Mild AFIB: maintaining SR - paroxysmal - on 10mg Xarelto Hx of lupus/antiphospholipid antibody syndrome with past PE - cont xarelto, f/u with [facility] HTN - controlled HLD Anemia of chronic disease with prior hx of thrombocytopenia and leukopenia - Related to SLE CKD stage 3 /4 - Baseline 2.1 since 03/2019 Thyromegaly/nodules: per CT COPD Moderate pulmonary HTN - confirmed on echo, likely 2/2 lupus Lexiscan as an outpt. Follow up in 4 weeks. Echo: The left ventricular systolic function is normal. The Ejection Fraction is 60-65%. There is normal LV segmental wall motion. Mild aortic stenosis. Trace mitral regurgitation. Mild tricuspid regurgitation. The PA pressure was estimated at 49 mmHg. There is no evidence of significant pericardial effusion. Discharge Information Condition at Discharge: Improved Follow Up: Weeks (2) Disposition/Orders: D/C to Home Scheduled Atorvastatin Calcium (Atorvastatin Calcium) 40 Mg Tablet, 40 MG PO HS for FOR CHOLESTEROL, #30 Ref 0 (Reported) Entered as Reported by: MJ GOMES RPH on 12/13/181400 Last Action: Reviewed on 12/13/181444 by ISIDORO WORTHINGTON RN Azathioprine (Azathioprine) 50 Mg Tablet, 40 MG PO DAILY for , (Reported) Entered as Reported by: ISIDORO WORTHINGTON RN on 12/13/181444 Last Action: Continued on 12/13/181624 by ISIDORO WORTHINGTON RN Budesonide/Formoterol Fumarate (Symbicort 160-4.5 Mcg Inhaler) 10.2 Gm Hfa.aer.ad, 1 PUFF IH BID, (Reported) Entered as Reported by: MJ GOMES RPH on 12/13/181402 Last Action: New Order on 12/13/181402 by MJ GOMES RPH Calcium Acetate (Phoslo) 667 Mg Capsule, 1 CAP PO BIDWMEALS, #90 Ref 5 (Reported) Entered as Reported by: MARSHALL NESS on 06/11/14 0938 Last Action: Edited on 12/13/18 1348 by MJ GOMES RP Furosemide (Furosemide) 40 Mg Tablet, 40 MG PO BID92, (Reported) Entered as Reported by: MITRA MORALES on 05/23/14 0739 Last Action: Edited on 12/13/18 140 by MJ GOMES Mirella Metoprolol Succinate (Metoprolol Succinate ( Xl )) 100 Mg Tab.er.24h, 100 MG PO QHS for FOR HYPERTENSION, #30 Ref 0 (Reported) Entered as Reported by: ISIDORO WORTHINGTON RN on 12/13/181526 Last Action: New Order on 12/13/181526 by ISIDORO WORTHINGTON RN Olmesartan/Amlodipin/Hcthiazid (Tribenzor 40-10-25 Mg Tablet) 1 Each Tablet, 1 EACH PO DAILY, (Reported) Entered as Reported by: MJ GOMES RPH on 12/13/181400 Last Action: Reviewed on 12/13/181444 by ISIDORO WORTHINGTON RN Pantoprazole Sodium (Pantoprazole Sodium) 40 Mg Tablet.dr, 40 MG PO DAILY, (Reported) Entered as Reported by: MITRA MORALES on 05/23/14738 Last Action: Continued on 12/13/181235 by LAMONT ZARATE MD Polyethylene Glycol 3350 (Miralax) 17 Gm Powd.pack, 1 PACKET PO DAILY, #30 Ref 3 (Reported) Entered as Reported by: MARSHALL NESS on 06/11/1438 Last Action: Converted on 12/13/181235 by LAMONT ZARATE MD Potassium Chloride (K-Tab ER) 20 Meq Tablet.er, 20 MEQ PO DAILY, (Reported) Entered as Reported by: MITRA MORALES on 05/23/14738 Last Action: Converted on 12/13/181235 by LAMONT ZARATE MD Rivaroxaban (Xarelto) 10 Mg Tablet, 10 MG PO DAILY, (Reported) Entered as Reported by: MJ GOMES RPH on 12/13/181401 Last Action: Reviewed on 12/13/181444 by ISIDORO WORTHINGTON RN Tiotropium Thelma (Spiriva) 18 Mcg Cap.w.dev, 2 INH IH DAILY, #1 Ref 0 (Reporte d) Entered as Reported by: MJ GOMES RPH on 12/13/181402 Last Action: Reviewed on 12/13/181444 by ISIDORO WORTHINGTON RN Scheduled PRN Albuterol Sulfate (Proair Hfa Inhaler) 8.5 Gm Hfa.aer.ad, 1 PUFF INH PRN Q6HRS PRN for SHORTNESS OF BREATH, Ref 0 (Reported) Entered as Reported by: MJ GOMES RPH on 12/13/181402 Last Action: Reviewed on 12/13/181444 by ISIDORO WORTHINGTON RN Discontinued Medications Amlodipine/Atorvastatin (Amlodipine-Atorvast 5-40 Mg) 1 Each Tablet, 1 EACH PO DAILY, (Reported) Discontinued Reason: CHANGE Entered as Reported by: MITRA MORALES on 05/23/14738 Last Action: Discontinued on 12/13/181400 by MJ GOMES [facility] Benazepril Hcl (Benazepril Hcl) 40 Mg Tablet, 40 MG PO DAILY, (Reported) Discontinued Reason: CHANGE Entered as Reported by: MITRA MORALES on 05/23/14738 Last Action: Discontinued on 12/13/181400 by MJ GOMES [facility] Enoxaparin Sodium (Enoxaparin Sodium) 100 Mg/1 Ml Disp.syrin, 100 MG SQ DAILY, (Reported) Discontinued Reason: CHANGE Entered as Reported by: MITRA MORALES on 05/23/14738 Last Action: Discontinued on 12/13/181400 by MJ GOMES [facility] Folic Acid (Folic Acid) 1 Mg Tablet, 1 MG PO DAILY, (Reported) Discontinued Reason: D/C Entered as Reported by: MITRA MORALES on 05/23/14738 Last Action: Discontinued on 12/13/181402 by MJ GOMES [facility] Lisinopril (Lisinopril) 10 Mg Tablet, 1 TAB PO DAILY, #30 Ref 5 (Reported) Discontinued Reason: [place] Entered as Reported by: MARSHALL NESS on 06/11/1438 Last Action: Discontinued on 12/13/181400 by MJ GOMES [facility] Metoprolol Succinate (Metoprolol Succinate ( Xl )) 100 Mg Tab.er.24h, 50 MG PO DAILY for FOR HYPERTENSION, #30 Ref 0 (Reported) Entered as Reported by: MJ GOMES RP on 12/13/181335 Last Action: Discontinued on 12/13/18 152 by ISIDORO WORTHINGTON, RN Metoprolol Tartrate (Metoprolol Tartrate) 50 Mg Tablet, 50 MG PO DAILY for FOR HYPERTENSION, #60 Ref 0 (Reported) Discontinued Reason: CHANGE Entered as Reported by: MITRA MORALES on 05/23/14738 Last Action: Discontinued on 12/13/181335 by MJ GOMES [facility] Niacin (Niacin Er) 500 Mg Tab.er.24h, 500 MG PO HS, (Reported) Discontinued Reason: D/C Entered as Reported by: MITRA MORALES on 05/23/14738 Last Action: Discontinued on 12/13/181402 by MJ GOMES [facility] Tramadol Hcl (Tramadol Hcl) 50 Mg Tablet, 50 MG PO DAILY PRN for PAIN, Ref 0 (Reported) Discontinued Reason: D/C Entered as Reported by: MITRA MORALES on 05/23/14 0739 Last Action: Discontinued on 12/13/18 1401 by MJ GOMES [facility] PAMELA HDZ MD December 14, 2018 19:54
== END 2018-12-14 18:20 | disposition home or self-care (01) | DRG 291 ==
LOC: ER 10:48 → 2 SOUTH 12:14
PROVIDERS: ADMIT Family Medicine; ATTEND Family Medicine
DX: I13.0 Hypertensive heart and chronic kidney disease with heart failure and stage 1 through stage 4 chronic kidney disease, or unspecified chronic kidney disease (principal); I50.33 Acute on chronic diastolic (congestive) heart failure; N18.4 Chronic kidney disease, stage 4 (severe); D25.9 Leiomyoma of uterus, unspecified; D63.1 Anemia in chronic kidney disease; E78.5 Hyperlipidemia, unspecified; F17.210 Nicotine dependence, cigarettes, uncomplicated; I25.10 Atherosclerotic heart disease of native coronary artery without angina pectoris; I27.20 Pulmonary hypertension, unspecified; I48.0 Paroxysmal atrial fibrillation; J44.9 Chronic obstructive pulmonary disease, unspecified; K21.9 Gastro-esophageal reflux disease without esophagitis; M19.90 Unspecified osteoarthritis, unspecified site; L60.0 Ingrowing nail; M06.9 Rheumatoid arthritis, unspecified; M32.9 Systemic lupus erythematosus, unspecified; M41.9 Scoliosis, unspecified; Z82.49 Family history of ischemic heart disease and other diseases of the circulatory system; Z86.711 Personal history of pulmonary embolism; Z95.828 Presence of other vascular implants and grafts; Z79.01 Long term (current) use of anticoagulants
CPT/HCPCS: 36415; 71045; 71250; 80053; 80061; 82553; 83690; 83735; 83880; 84443; 84484; 85025; 85610; 93005; 93306; 93970; 94640; 94760; J1940; J7500; J7620; J7626; 99285-25

== ENCOUNTER → 2019-04-02 | Outpatient (CLI) | payer BC ==
[~2019-04-02] MED LIST changes: +ALBU2.5V8 INH; +ATOR40TA59 PO; +AZAT50TA PO; +BUDE10.2 IH; +METO-247 PO; +OLME1TAB35 PO; -PANT40TA5 PO; +PANT40TA77 PO; +RIVA10TA PO; +TIOT18CA IH
--- NOTE | 2019-04-02 10:51 | RAD ---
EXAM: Lumbar spine, 3 views; pelvis, single view; sacrum and coccyx, 3 views. HISTORY: Lifting injury. Pain. COMPARISON: None. FINDINGS: Pelvis and sacrum and coccyx: A frontal view the pelvis and 3 views of the sacrum and coccyx are obtained. There is no fracture, dislocation or subluxation. The femoral heads are normal in configuration. There is subchondral sclerosis involving the inferior sacroiliac joints. There are large calcified uterine fibroids. The largest of these measures 5.8 cm sonographically. Lumbar spine: 3 views of the lumbar spine are obtained. There is mild lumbar levocurvature centered at L2. There is grade 1 anterolisthesis of L4 and L5, measuring 3 mm. The vertebral bodies are normal in height and the disc spaces are preserved. There is an IVC filter overlying expected position. IMPRESSION: 1. No acute osseous finding. 2. Degenerative change involving the inferior sacroiliac joints. 3. Grade 1 anterolisthesis of L4 on L5 and mild lumbar levocurvature. 4. Large calcified uterine fibroids. Electronically signed by: Giovanna Baker MD (04/02/2019 10:48 AM) [place] [id number]
== END | disposition home or self-care (01) ==
LOC: RAD 09:42
PROVIDERS: ATTEND Physician Assistant Surgical
DX: M43.16 Spondylolisthesis, lumbar region (principal); M47.818 Spondylosis without myelopathy or radiculopathy, sacral and sacrococcygeal region; D25.9 Leiomyoma of uterus, unspecified; D72.819 Decreased white blood cell count, unspecified; D63.8 Anemia in other chronic diseases classified elsewhere; N18.9 Chronic kidney disease, unspecified; R63.4 Abnormal weight loss; R53.1 Weakness
CPT/HCPCS: 72100; 72170; 72220

== ENCOUNTER → 2019-04-17 | Outpatient (CLI) | payer BC ==
--- NOTE | 2019-04-17 12:42 | RAD ---
Examination: CT chest without contrast HISTORY: History of abnormal chest CT COMPARISON: 12/13/2018 TECHNIQUE: Axial CT images of chest were performed without contrast. Coronal and sagittal reformats are performed. Exposure: One or more of the following individualized dose reduction techniques were utilized for this examination: 1. Automated exposure control 2. Adjustment of the mA and/or kV according to patient size 3. Use of iterative reconstruction technique FINDINGS: Enlarged appearing thyroid gland with small hypodense nodules in thyroid gland similar to prior exam. Moderate cardiomegaly. Coronary artery calcifications. Multiple enlarged bilateral axillary lymph nodes identified similar to prior exam. Faint foci of subpleural noncalcified density in the right lower and right upper lobes similar to prior exam. Small focus of irregular nodular density in the right upper lobe is unchanged. The visualized noncontrasted liver, spleen grossly appears unremarkable. 9 mm cystic structure identified in the right kidney. Mild degenerative changes thoracic spine. IMPRESSION: 1. Enlarged bilateral axillary lymph nodes similar to prior exam. 2. Few scattered noncalcified right lung nodules unchanged. Electronically signed by: Carlito Katz MD (04/17/2019 12:39 PM) [id number]
== END | disposition home or self-care (01) ==
LOC: CT 09:32
PROVIDERS: ATTEND Physician Assistant Surgical
DX: I25.10 Atherosclerotic heart disease of native coronary artery without angina pectoris (principal); R59.9 Enlarged lymph nodes, unspecified; I51.7 Cardiomegaly; J98.4 Other disorders of lung
CPT/HCPCS: 71250

== ENCOUNTER → 2019-04-19 | Outpatient (CLI) | payer BC ==
[~2019-04-19] MED LIST changes: +REGADENOSON 0.4 MG/5 ML DISP.SYRIN. IV ONE; +hydrALAZINE 20 MG/ML VIAL. IVP ONE; +hydrALAZINE 20 MG/ML VIAL. ONE
[2019-04-19 10:55] VITALS: BP 211/112
--- NOTE | 2019-04-19 11:49 | NUR ---
Patient's blood pressure before starting Lexiscan was 211/112. Cardiology HYDRAULIC MINER BLASTING was called on their cell phone at 1045 and he gave telephone order to give 10mg IV Hydralazine (Frankie London NP). Patient stated she has been taking her blood pressure medication morning and evening and took her morning dose this a.m. Blood pressure decreased and Nuclear Stress test was obtained and scanned into the system.
--- NOTE | 2019-04-19 12:35 | RAD ---
MR#: [id number] Date of Study: 04/19/2019 Ordering Physician: BRENDA RAY, Referring Physician: KAL HANEY Tech: RT Brooks (R) (N) APPROVED REPORT Test Type: Pharmacological Stress Nurse/Tech: Neda Childers RN Test Indications: Chest pain/pressure Cardiac History: Hypertension,former smoker-COPD, kidney disease Medications: See Electronic Medical Record Medical History: See Electronic Medical Record Resting ECG: SR with BBB Resting Heart Rate: 70 bpm Resting Blood Pressure: 188/103mmHg Pretest Chest Pain: No chest pain Nurse/Tech Notes S1,S2 and lungs diminished throughout. Difficulty getting pulse oxymeter to pick up and delivery driver-one reading had 9 0% room air and then would not pick up and delivery driver again after multiple attempts. Patient's blood pressure eleva miguel (211/112) so Cardiology REHAB DIRECTOR called. Telephone order for 10mg IV hydralazine received and given to patient. Patient stated she took her blood pressure medicine this a.m. and takes another dose at [facility]. Consent: The procedure was explained to the patient in lay terms. Informed consent was witnessed. Talib patel was entered into [employer]. History and Stress Test performed by DEANNA Nair Pharm. Details Pharmacologic stress testing was performed using 0.4mg per 5ml of regadenoson given intravenously ove r 7-10 seconds. Stress Symptoms Dyspnea and chest pressure POST EXERCISE Reason for Termination: Infusion complete Target HR: No Max HR: 97 bpm Max Blood Pressure: 164/74mmHg Blood Pressure response to exercise: Normal blood pressure response during stress. Heart Rate response to exercise: WNL Chest Pain: Yes. see note above Arrhythmia: No. ST Change: Yes. INTERPRETATION Stress EKG Conclusion: Baseline EKG showed sinus rhythm with lateral T wave inversions. Non-diagnost ic changes at peak stress. No arrhythmias. Imaging Protocol IMAGE PROTOCOL: Rest Tc-99m/stress Tc-99m 1 day Rest: Stress: Viability: Radiopharm.Tc99m OriphedlqPa42t Sestamibi Dose10.3mCi 34mCi Duration 13min. 13min. Img Date 04/19/2019 04/19/2019 Inj-Img [id number]. 60min. Rest Admin Site:IV - Right ForearmAdministrator:RT Brooks (R)(N) Stress Admin Site: IV - Right ForearmAdministrator: DAENNA Nair STRESS DATA End Diast. Vol.114.0mlLVEDV index BSA68.0ml End Syst. Vol.37.0mlLVESV index BSA22.0ml Myocardial Dgrd979.0gEject. Okbjbdqx11.0% Stress Scores Regional WT1.00Summed WT15.00 Regional WM0.00Summed WM1.00 Study quality was good. Left Ventricular size was Normal at Rest and Stress. Lung uptake was . Left Ventricular ejection fraction is 68%. The rest and stress images show normal perfusion, normal contraction and thickening. LV Perf. Quant 17 Seg. SSS0.00 17 Seg. SRS0.00 17 Seg. SDS0.00 Stress Defect Extent (% LAD)0.00Rest Defect Extent (% LAD)0.00Rev. Defect Extent (% LAD)0.00 Stress Defect Extent (% LCX) 0.00Rest Defect Extent (% LCX)0.00Rev. Defect Extent (% LCX)0.00 Stress Defect Extent (% RCA)0.00Rest Defect Extent (% RCA)0.00Rev. Defect Extent (% RCA)0.00 Stress Defect Extent (% SHREYAS)0.00Rest Defect Extent (% SHREYAS)0.00Rev. Defect Extent (% SHREYAS)0.00 Conclusion 1. Regadenoson cardioisotope stress test did not show any evidence of ischemia or infarct. 2. Normal left ventricular systolic function with ejection fraction calculated at 68%. 3. Low risk for cardiac events. Signed by : Brenda Ray, Electronically Approved : 04/19/2019 12:34:59
== END | disposition home or self-care (01) ==
LOC: NM 08:31
PROVIDERS: ATTEND Internal Medicine Cardiovascular Disease
DX: R07.89 Other chest pain (principal)
CPT/HCPCS: 78452; 93017; A9500; J0360; J2785

== ENCOUNTER 2019-06-05 17:27 | Inpatient (IN) | payer BC ==
[~2019-06-05] VITALS: Ht 167.6 cm; Wt 62.8 kg
[2019-06-05] VITALS (7 sets, daily range): BP systolic 199–235; BP diastolic 97–126
[~2019-06-05 17:27] MED LIST changes: -REGADENOSON 0.4 MG/5 ML DISP.SYRIN. IV ONE; -hydrALAZINE 20 MG/ML VIAL. IVP ONE; -hydrALAZINE 20 MG/ML VIAL. ONE
--- NOTE | 2019-06-05 17:45 | PHYS DOC ---
Past Medical History Past Medical History: A-Fib, Anemia, CHF, Hypertension Past Surgical History: No Surgical History Alcohol Use: None Drug Use: None Adult General Chief Complaint Chief Complaint: HYPERTENSION HPI HPI Patient is a 58 year old female that presents to the emergency Department with palpitations, shortness of breath, and headache this been ongoing since April. The patient states she's been taking her blood pressure medicine as normal. However she went to the care today to see while she was having a headache and they found that her blood pressure was 238 systolic. They been told her to go to the ER. The patient rates her headache as 6 out of 10 in severity and sharp. The patient states that she does have a history of congestive heart failure and is on Lasix for this however she ran out of her Lasix on Monday. Review of Systems Review of Systems Constitutional: Denies fever or chills [] Eyes: Denies change in visual acuity, redness, or eye pain [] HENT: Denies nasal congestion or sore throat [] Respiratory: Denies cough or shortness of breath [] Cardiovascular: No additional information not addressed in HPI [] GI: Denies abdominal pain, nausea, vomiting, bloody stools or diarrhea [] : Denies dysuria or hematuria [] Musculoskeletal: Denies back pain or joint pain [] Integument: Denies rash or skin lesions [] Neurologic: Reports headache denies focal weakness or sensory changes [] Endocrine: Denies polyuria or polydipsia [] Complete systems were reviewed and found to be within normal limits, except as documented in this note. Current Medications Current Medications Current Medications Medications (Trade) Dose Ordered Sig/[facility] Start Time Stop Time Status Last Admin Dose Admin Fentanyl Citrate (Fentanyl 2ml Vial) 50 mcg PRN Q1HR PRN 06/05/19 19:30 06/06/19 19:29 UNV Hydralazine HCl (Apresoline Inj) 10 mg 1X ONCE 06/05/19 18:00 06/05/19 18:01 DC 06/05/19 18:30 10 MG Labetalol HCl (Normodyne Iv Push) 20 mg 1X STAT 06/05/19 19:10 06/05/19 19:13 DC 06/05/19 19:20 20 MG Ondansetron HCl (Zofran) 4 mg PRN Q8HRS PRN 06/05/19 19:30 06/06/19 19:29 UNV Allergies Allergies Allergies Coded Allergies Type Severity Reaction Last Updated Verified No Known Drug Allergies 05/23/14 No Physical Exam Physical Exam Constitutional: Well developed, well nourished, no acute distress, non-toxic appearance. [] HENT: Normocephalic, atraumatic, bilateral external ears normal, oropharynx moist, no oral exudates, nose normal. [] Eyes: PERRLA, EOMI, conjunctiva normal, no discharge. [] Neck: Normal range of motion, no tenderness, supple, no stridor. [] Cardiovascular:Heart rate regular rhythm, no murmur [] Lungs & Thorax: Bilateral breath sounds clear to auscultation [] Abdomen: Bowel sounds normal, soft, no tenderness, no masses, no pulsatile masses. [] Skin: Warm, dry, no erythema, no rash. [] Back: No tenderness, no CVA tenderness. [] Extremities: No tenderness, no cyanosis, no clubbing, ROM intact, no edema. [] Neurologic: Alert and oriented X 3, normal motor function, normal sensory function, no focal deficits noted. [] Psychologic: Affect normal, judgement normal, mood normal. [] Current Patient Data Vital Signs Vital Signs Date Time Temp Pulse Resp B/P (MAP) Pulse Ox O2 Delivery O2 Flow Rate FiO2 06/05/19 19:20 71 06/05/19 18:30 219/155 06/05/19 17:42 98.2 18 95 Room Air 98.2 Lab Values Laboratory Tests Test 06/05/19 17:58 06/05/19 18:33 White Blood Count 5.1 x10^3/uL (4.0-11.0) Red Blood Count 2.87 x10^6/uL (3.50-5.40) L Hemoglobin 8.9 g/dL (12.0-15.5) L Hematocrit 26.6 % (36.0-47.0) L Mean Corpuscular Volume 93 fL (79-100) Mean Corpuscular Hemoglobin 31 pg (25-35) Mean Corpuscular Hemoglobin Concent 33 g/dL (31-37) Red Cell Distribution Width 16.4 % (11.5-14.5) H Platelet Count 154 x10^3/uL (140-400) Neutrophils (%) (Auto) 66 % (31-73) Lymphocytes (%) (Auto) 22 % (24-48) L Monocytes (%) (Auto) 9 % (0-9) Eosinophils (%) (Auto) 3 % (0-3) Basophils (%) (Auto) 1 % (0-3) Neutrophils # (Auto) 3.4 x10^3/uL (1.8-7.7) Lymphocytes # (Auto) 1.1 x10^3/uL (1.0-4.8) Monocytes # (Auto) 0.4 x10^3/uL (0.0-1.1) Eosinophils # (Auto) 0.1 x10^3/uL (0.0-0.7) Basophils # (Auto) 0.0 x10^3/uL (0.0-0.2) Prothrombin Time 15.1 SEC (11.7-14.0) H Prothrombin Time INR 1.2 (0.8-1.1) H Activated Partial Thromboplast Time 23 SEC (24-38) L Sodium Level 145 mmol/L (136-145) Potassium Level 3.5 mmol/L (3.5-5.1) Chloride Level 107 mmol/L (98-107) Carbon Dioxide Level 31 mmol/L (21-32) Anion Gap 7 (6-14) Blood Urea Nitrogen 45 mg/dL (7-20) H Creatinine 1.9 mg/dL (0.6-1.0) H Estimated GFR (Cockcroft-Gault) 32.9 BUN/Creatinine Ratio 24 (6-20) H Glucose Level 87 mg/dL (70-99) Calcium Level 9.5 mg/dL (8.5-10.1) Magnesium Level 2.5 mg/dL (1.8-2.4) H Total Bilirubin 0.4 mg/dL (0.2-1.0) Aspartate Amino Transferase (AST) 20 U/L (15-37) Alanine Aminotransferase (ALT) 7 U/L (14-59) L Alkaline Phosphatase 76 U/L (46-116) Creatine Kinase 29 U/L (26-192) Creatine Kinase MB (Mass) 0.7 ng/mL (0.0-3.6) Creatine Kinase MB Relative Index 2.4 % (0-4) Troponin I Quantitative 0.022 ng/mL (0.000-0.055) JP-Cpv-D-Type Natriuretic Peptide 8982 pg/mL (0-124) H Total Protein 8.4 g/dL (6.4-8.2) H Albumin 2.9 g/dL (3.4-5.0) L Albumin/Globulin Ratio 0.5 (1.0-1.7) L Laboratory Tests 06/05/19 17:58 Laboratory Tests 06/05/19 18:33 EKG EKG EKG interpreted by Dr. Gonzalez Sinus with rate of 66. No STEMI, T wave inversion, left axis deviation, [] Radiology/Procedures Radiology/Procedures [][facility] [address] [place] [address] IMAGING REPORT Signed PATIENT: INA GRANT ACCOUNT: [id number] : 1960 LOCATION: ER AGE: 58 SEX: F EXAM STATUS: REG ER ORD. PHYSICIAN: STEPHANIA BRYANT APRN REASON: headache PROCEDURE: CT HEAD WO CONTRAST Exam: CT head INDICATION: Headache TECHNIQUE: Sequential axial images through the head were obtained without the administration of IV contrast. Comparisons: None FINDINGS: No focal parenchymal lesion or hemorrhage is identified. There is no midline shift or sulcal effacement. Patchy hypodensities within the periventricular and subcortical white matter likely representing small vessel ischemic change. No acute vascular territory infarction is identified. Holm-white distinction is preserved. The ventricular system is within normal limits without compression hydrocephalus. The basal cisterns are well maintained. The visualized portions of the paranasal sinuses and mastoid air cells are well-pneumatized. No acute fractures. IMPRESSION: Findings a small vessel ischemic change, technically age indeterminate without prior imaging for comparison. Exposure: One or more of the following in the visualized dose reduction techniques were utilized for this examination: 1. Automated exposure control 2. Adjustment of the MA and/or KV according to patient size Use of iterative of reconstructive technique Electronically signed by: Amy Ramirez MD (06/05/2019 6:27 PM) [facility] DICTATED and SIGNED BY: AMY RAMIREZ MD DATE: 10/23/19 1827 Course & Med Decision Making Course & Med Decision Making Pertinent Labs and Imaging studies reviewed. (See chart for details) Will get labs, EKG, chest x-ray, CT head, and will give supportive care. Imaging is negative. Labs are unremarkable for acute findings with exception of BNP of 8900. After initial dose of hydralazine bp was 232/103. Will order 20 mg of Labetalol. Will call Dr. Santos for admission for Hypertensive Crisis. Discussed with Dr. Santos who accepts admission. Will consult cards and order Labetalol Q6 20 mg. Dragon Disclaimer Dragon Disclaimer This electronic medical record was generated, in whole or in part, using a voice recognition dictation system. Departure Departure Impression: Primary Impression: Hypertensive urgency Additional Impressions: Chest pain Acute exacerbation of CHF (congestive heart failure) Disposition: ADMITTED INPATIENT Admitting Physician: MADELINE Condition: GUARDED Referrals: KESHAWN WINKLER (PCP) The HEART Score for CP Pts HEART Score for Chest Pain: HEART Score for Chest Pain Response (Comments) Value History Slighlty/Non-Suspicious 0 ECG Nonspecific Repolarizatio 1 Age >45 - < 65 1 Risk Factors >3 Risk Factors or Hx CAD 2 Troponin < Normal Limit 0 Total 4 Risk Factors: Risk Factors: DM, Current or recent (<one month) smoker, HTN, HLP, family history of CAD, obesity. Risk Scores: Score 0 - 3: 2.5% MACE over next 6 weeks - Discharge Home Score 4 - 6: 20.3% MACE over next 6 weeks - Admit for Clinical Observation Score 7 - 10: 72.7% MACE over next 6 weeks - Early Invasive Strategies Problem Qualifiers Additional Impressions: Chest pain Chest pain type: unspecified Qualified Codes: R07.9 - Chest pain, unspecified Acute exacerbation of CHF (congestive heart failure) Heart failure type: unspecified Qualified Codes: I50.9 - Heart failure, unspecified STEPHANIA BRYANT APRN Jun 05, 2019 17:45
[2019-06-05] MEDS ORDERED: hydrALAZINE 20 MG/ML VIAL. IVP ONE (18:00)
[2019-06-05 18:10] LABS: BASO % 1 % (0-3); EOS # 0.1 x10^3/uL (0.0-0.7); EOS % 3 % (0-3); HEMATOCRIT 26.6 % (36.0-47.0); HEMOGLOBIN 8.9 g/dL (12.0-15.5); LYMPH # 1.1 x10^3/uL (1.0-4.8); LYMPH % 22 % (24-48); MEAN CORPUSCULAR HEMOGLOBIN 31 pg (25-35); MEAN CORPUSCULAR HGB CONC 33 g/dL (31-37); MEAN CORPUSCULAR VOLUME 93 fL (79-100); MONO # 0.4 x10^3/uL (0.0-1.1); MONO % 9 % (0-9); NEUT # 3.4 x10^3/uL (1.8-7.7); NEUT % 66 % (31-73); PLATELET COUNT 154 x10^3/uL (140-400); RED BLOOD COUNT 2.87 x10^6/uL (3.50-5.40); RED CELL DISTRIBUTION WIDTH 16.4 % (11.5-14.5); WHITE BLOOD COUNT 5.1 x10^3/uL (4.0-11.0)
[2019-06-05 18:17] LABS: PROTHROMBIN TIME PATIENT 15.1 SEC (11.7-14.0)
--- NOTE | 2019-06-05 18:30 | RAD ---
Exam: CT head INDICATION: Headache TECHNIQUE: Sequential axial images through the head were obtained without the administration of IV contrast. Comparisons: None FINDINGS: No focal parenchymal lesion or hemorrhage is identified. There is no midline shift or sulcal effacement. Patchy hypodensities within the periventricular and subcortical white matter likely representing small vessel ischemic change. No acute vascular territory infarction is identified. Holm-white distinction is preserved. The ventricular system is within normal limits without compression hydrocephalus. The basal cisterns are well maintained. The visualized portions of the paranasal sinuses and mastoid air cells are well-pneumatized. No acute fractures. IMPRESSION: Findings a small vessel ischemic change, technically age indeterminate without prior imaging for comparison. Exposure: One or more of the following in the visualized dose reduction techniques were utilized for this examination: 1. Automated exposure control 2. Adjustment of the MA and/or KV according to patient size Use of iterative of reconstructive technique Electronically signed by: Amy Johns MD (06/05/2019 6:27 PM) [facility]
[2019-06-05 18:53] LABS: CALCIUM 9.5 mg/dL (8.5-10.1); CREATININE 1.9 mg/dL (0.6-1.0); GFR 32.9; POTASSIUM 3.5 mmol/L (3.5-5.1)
[2019-06-05 18:59] LABS: ALBUMIN 2.9 g/dL (3.4-5.0); ALBUMIN/GLOBULIN RATIO 0.5 (1.0-1.7); MAGNESIUM 2.5 mg/dL (1.8-2.4); TOTAL BILIRUBIN 0.4 mg/dL (0.2-1.0); TOTAL PROTEIN 8.4 g/dL (6.4-8.2)
[2019-06-05] MEDS ORDERED: LABETALOL 20 MG/4 ML DISP.SYRIN. IVP STA (19:10)
[2019-06-05] MEDS ORDERED: fentaNYL PF VIAL 100 MCG/2 ML VIAL IV PRN (19:30)
[2019-06-05] MEDS ORDERED: ONDANSETRON PF 4 MG/2 ML VIAL. IV PRN (19:30)
--- NOTE | 2019-06-05 20:30 | NUR ---
Pt arrived to unit per cart at 2000 to room 244 pt assisted to bed from cart. tele monitor applied vs obtained with a bp 223/102 poc explained assessment completed pt c/o huggins call light in reach will place call to cardiology for further medications orders for bp. Call light in reach.
[2019-06-05] MEDS ORDERED: MULT1TAB52 PO (20:58)
[2019-06-05] MEDS ORDERED: HYDR-2145 PO (20:58)
[2019-06-05] MEDS ORDERED: HYDR200T5 PO (20:58)
[2019-06-05] MEDS ORDERED: LOSA100T14 PO (20:58)
[2019-06-05] MEDS ORDERED: PANT40TA77 PO (20:58)
--- NOTE | 2019-06-05 21:13 | NUR ---
Dr. Strong returned call orders received. Will continue to monitor.
[2019-06-05] MEDS ORDERED: NITROGLYCERIN PREMIX 250 ML IV ONE (21:30)
[2019-06-05] MEDS ORDERED: LOSARTAN POTASSIUM 50 MG TABLET. PO ONE (21:30)
[2019-06-05] MEDS ORDERED: NITROGLYCERIN PREMIX 250 ML IV PRN (22:30)
[2019-06-05] MEDS: ACETAMINOPHEN 325 MG TABLET. PO PRN (23:03)
--- NOTE | 2019-06-05 23:04 | RAD ---
CHEST PA LATERAL CLINICAL INDICATION: Shortness of breath, chest pain. COMPARISON: 12/13/2018 FINDINGS: Heart is normal in size. Interstitial opacities bilaterally without focal consolidation. No pneumothorax or pleural effusion. Visualized bony thorax within normal limits. IMPRESSION: Findings of atypical/viral infection or mild interstitial pulmonary edema. Electronically signed by: Tung Noble DO (06/05/2019 11:01 PM) [facility]
[2019-06-06] VITALS (38 sets, daily range): BP systolic 131–228; BP diastolic 62–126
--- NOTE | 2019-06-06 01:50 | NUR ---
Call placed to Dr. Tenorio re: bp 203/102 on nitro gtt
--- NOTE | 2019-06-06 02:18 | NUR ---
Nitro gtt discontinued and pt started on a cardene gtt will monito rpt.
--- NOTE | 2019-06-06 06:55 | EKG ---
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
--- NOTE | 2019-06-06 07:21 | PDOC1 ---
History and Physical Date of Admission Date of Admission DATE: 06/06/19 TIME: 07:21 Identification/Chief Complaint Chief Complaint SEEN IN ER , complains of chest pain. No recent falls or injury but her pain started after she finished her physical therapy on Monday. She did tolerate her PT noting that she does cario and lifted some light wts. She described the pain to her left chest as punching sensation lasting few seconds intermittent. No frequent dizziness and no sensation of palpitations. She has been noted with PAFIB and the reading from her latest MCOT FEELING BETTER THIS AFTERNOON Past Medical History Past Medical History Past Medical History Past Medical History Past Medical History: A-Fib, Anemia, CHF, Hypertension Past Surgical History: No Surgical History Alcohol Use: None Drug Use: None Cardiovascular: AFIB, HTN, Hyperlipidemia Pulmonary: COPD, Pulmonary embolus CENTRAL NERVOUS SYSTEM: Other GI: GERD Heme/Onc: Anemia NOS, Other Musculoskeletal: Osteoarthritis Rheumatologic: Rheumatoid arthritis, Other Infectious disease: No pertinent hx Renal/: Chronic renal insuff Endocrine: No pertinent hx Past Surgical History Past Surgical History: Other Family History Family History: High Cholestrol, Hypertension Social History Smoke: No ALCOHOL: none Drugs: None Current Problem List Problem List Problems Medical Problems: (1) Acute exacerbation of CHF (congestive heart failure) Status: Acute (2) Chest pain Status: Acute (3) Hypertensive urgency Status: Acute Current Medications Current Medications Current Medications Hydralazine HCl (Apresoline Inj) 10 mg 1X ONCE IVP Last administered on 06/05/19at 18:30; Start 06/05/19 at 18:00; Stop 06/05/19 at 18:01; Status DC Labetalol HCl (Normodyne Iv Push) 20 mg 1X STAT IVP Last administered on 06/05/19at 19:20; Start 06/05/19 at 19:10; Stop 06/05/19 at 19:13; Status DC Ondansetron HCl (Zofran) 4 mg PRN Q8HRS PRN IV NAUSEA/VOMITING; Start 06/05/19 at 19:30; Stop 06/06/19 at 19:29 Fentanyl Citrate (Fentanyl 2ml Vial) 50 mcg PRN Q1HR PRN IV PAIN; Start 06/05/19 at 19:30; Stop 06/06/19 at 19:29 Labetalol HCl (Normodyne Iv Push) 20 mg PRN Q6HRS PRN IVP HYPERTENSION; Start 06/05/19 at 19:30 Losartan Potassium (Cozaar) 100 mg 1X ONCE PO Last administered on 06/05/19at 21:38; Start 06/05/19 at 21:30; Stop 06/05/19 at 21:31; Status DC Nitroglycerin/ Dextrose 250 ml @ 0 mls/hr 1X ONCE IV Last administered on 06/05/19at 21:41; Start 06/05/19 at 21:30; Stop 06/05/19 at 21:31; Status DC Nitroglycerin/ Dextrose 250 ml @ 1.5 mls/hr CONT PRN IV SEE I/O RECORD; Start 06/05/19 at 22:30; Stop 06/06/19 at 02:17; Status DC Acetaminophen (Tylenol) 650 mg PRN Q4HRS PRN PO HEADACHE Last administered on 06/05/19at 23:03; Start 06/05/19 at 23:00 Hydrochlorothiazide (Hydrodiuril) 25 mg DAILY PO ; Start 06/06/19 at 09:00 Metoprolol Succinate (Toprol Xl) 100 mg DAILY PO ; Start 06/06/19 at 09:00 Losartan Potassium (Cozaar) 100 mg DAILY PO ; Start 06/06/19 at 09:00 Nicardipine HCl 50 mg/Sodium Chloride 250 ml @ 25 mls/hr CONT PRN IV SEE I/O RECORD Last administered on 06/06/19at 02:15; Start 06/06/19 at 02:00 Active Scripts Active Reported Hydrochlorothiazide Tablet (Hydrochlorothiazide) 25 Mg Tablet 25 Mg PO DAILY Protonix (Pantoprazole Sodium) 40 Mg Tablet.dr 40 Mg PO DAILYAC Losartan Potassium 100 Mg Tablet 100 Mg PO DAILY Hydroxychloroquine Sulfate 200 Mg Tablet 200 Mg PO DAILY Multivitamins (Multivitamin) 1 Each Tablet 1 Tab PO DAILY Metoprolol Succinate ( Xl ) (Metoprolol Succinate) 100 Mg Tab.er.24h 100 Mg PO DAILY Symbicort 160-4.5 Mcg Inhaler (Budesonide/Formoterol Fumarate) 10.2 Gm Hfa.aer.ad 1 Puff IH BID Spiriva (Tiotropium Elizabeth) 18 Mcg Cap.w.dev 2 Inh IH DAILY Proair Hfa Inhaler (Albuterol Sulfate) 8.5 Gm Hfa.aer.ad 1 Puff INH PRN Q6HRS PRN Xarelto (Rivaroxaban) 10 Mg Tablet 10 Mg PO DAILY Atorvastatin Calcium 40 Mg Tablet 40 Mg PO HS Phoslo (Calcium Acetate) 667 Mg Capsule 1 Cap PO BIDWMEALS K-Tab ER (Potassium Chloride) 20 Meq Tablet.er 20 Meq PO DAILY Furosemide 40 Mg Tablet 40 Mg PO [id number] Allergies Allergies: Coded Allergies: No Known Drug Allergies (Unverified , 05/23/14) ROS Review of System Review of Systems Review of Systems Constitutional: Denies fever or chills [] Eyes: Denies change in visual acuity, redness, or eye pain [] HENT: Denies nasal congestion or sore throat [] Respiratory: Denies cough or shortness of breath [] Cardiovascular: No additional information not addressed in HPI [] GI: Denies abdominal pain, nausea, vomiting, bloody stools or diarrhea [] : Denies dysuria or hematuria [] Musculoskeletal: Denies back pain or joint pain [] Integument: Denies rash or skin lesions [] Neurologic: Reports headache denies focal weakness or sensory changes [] Endocrine: Denies polyuria or polydipsia [] 14 PT systems were reviewed and found to be within normal limits, except as documented PSYCHOLOGICAL ROS: YES: Anxiety HEENT: YES: Heacaches Cardiovascular: yes Chest Pain Physical Exam Physical Exam Physical Exam Physical Exam Constitutional: Well developed, well nourished, no acute distress, non-toxic appearance. [] HENT: Normocephalic, atraumatic, bilateral external ears normal, oropharynx moist, no oral exudates, nose normal. [] Eyes: PERRLA, EOMI, conjunctiva normal, no discharge. [] Neck: Normal range of motion, no tenderness, supple, no stridor. [] Cardiovascular:Heart rate regular rhythm, no murmur [] Lungs & Thorax: Bilateral breath sounds clear to auscultation [] Abdomen: Bowel sounds normal, soft, no tenderness, no masses, no pulsatile masses. [] Skin: Warm, dry, no erythema, no rash. [] Back: No tenderness, no CVA tenderness. [] Extremities: No tenderness, no cyanosis, no clubbing, ROM intact, no edema. [] Neurologic: Alert and oriented X 3, normal motor function, normal sensory function, no focal deficits noted. [] Psychologic: Affect normal, judgement normal, mood normal. [] General: Alert, Oriented X3, Cooperative, No acute distress Lungs: Clear to auscultation Breasts: Not examined Abdomen: Normal bowel sounds, Soft Rectal Exam: not examined Extremities: No cyanosis Neuro: Normal speech, Cranial nerves 3-12 NL Psych/Mental Status: Mental status NL, Mood NL Vitals Vitals Vital Signs Date Time Temp Pulse Resp B/P (MAP) Pulse Ox O2 Delivery O2 Flow Rate FiO2 06/06/19 07:07 65 155/78 (103) 06/06/19 00:16 18 96 Room Air 06/05/19 22:49 98.5 98.5 Labs Labs Laboratory Tests Test 06/05/19 17:58 06/05/19 18:33 06/05/19 21:55 06/06/19 01:15 White Blood Count 5.1 x10^3/uL (4.0-11.0) Red Blood Count 2.87 x10^6/uL (3.50-5.40) Hemoglobin 8.9 g/dL (12.0-15.5) Hematocrit 26.6 % (36.0-47.0) Mean Corpuscular Volume 93 fL (79-100) Mean Corpuscular Hemoglobin 31 pg (25-35) Mean Corpuscular Hemoglobin Concent 33 g/dL (31-37) Red Cell Distribution Width 16.4 % (11.5-14.5) Platelet Count 154 x10^3/uL (140-400) Neutrophils (%) (Auto) 66 % (31-73) Lymphocytes (%) (Auto) 22 % (24-48) Monocytes (%) (Auto) 9 % (0-9) Eosinophils (%) (Auto) 3 % (0-3) Basophils (%) (Auto) 1 % (0-3) Neutrophils # (Auto) 3.4 x10^3/uL (1.8-7.7) Lymphocytes # (Auto) 1.1 x10^3/uL (1.0-4.8) Monocytes # (Auto) 0.4 x10^3/uL (0.0-1.1) Eosinophils # (Auto) 0.1 x10^3/uL (0.0-0.7) Basophils # (Auto) 0.0 x10^3/uL (0.0-0.2) Prothrombin Time 15.1 SEC (11.7-14.0) Prothromb Time International Ratio 1.2 (0.8-1.1) Activated Partial Thromboplast Time 23 SEC (24-38) Sodium Level 145 mmol/L (136-145) Potassium Level 3.5 mmol/L (3.5-5.1) Chloride Level 107 mmol/L (98-107) Carbon Dioxide Level 31 mmol/L (21-32) Anion Gap 7 (6-14) Blood Urea Nitrogen 45 mg/dL (7-20) Creatinine 1.9 mg/dL (0.6-1.0) Estimated GFR (Cockcroft-Gault) 32.9 BUN/Creatinine Ratio 24 (6-20) Glucose Level 87 mg/dL (70-99) Calcium Level 9.5 mg/dL (8.5-10.1) Magnesium Level 2.5 mg/dL (1.8-2.4) Total Bilirubin 0.4 mg/dL (0.2-1.0) Aspartate Amino Transf (AST/SGOT) 20 U/L (15-37) Alanine Aminotransferase (ALT/SGPT) 7 U/L (14-59) Alkaline Phosphatase 76 U/L (46-116) Creatine Kinase 29 U/L (26-192) 27 U/L (26-192) Creatine Kinase MB (Mass) 0.7 ng/mL (0.0-3.6) 0.7 ng/mL (0.0-3.6) Creatine Kinase MB Relative Index 2.4 % (0-4) 2.6 % (0-4) Troponin I Quantitative 0.022 ng/mL (0.000-0.055) 0.017 ng/mL (0.000-0.055) 0.051 ng/mL (0.000-0.055) ZN-Pdj-G-Type Natriuretic Peptide 8982 pg/mL (0-124) Total Protein 8.4 g/dL (6.4-8.2) Albumin 2.9 g/dL (3.4-5.0) Albumin/Globulin Ratio 0.5 (1.0-1.7) Laboratory Tests Test 06/05/19 17:58 06/05/19 18:33 06/05/19 21:55 06/06/19 01:15 White Blood Count 5.1 x10^3/uL (4.0-11.0) Red Blood Count 2.87 x10^6/uL (3.50-5.40) Hemoglobin 8.9 g/dL (12.0-15.5) Hematocrit 26.6 % (36.0-47.0) Mean Corpuscular Volume 93 fL (79-100) Mean Corpuscular Hemoglobin 31 pg (25-35) Mean Corpuscular Hemoglobin Concent 33 g/dL (31-37) Red Cell Distribution Width 16.4 % (11.5-14.5) Platelet Count 154 x10^3/uL (140-400) Neutrophils (%) (Auto) 66 % (31-73) Lymphocytes (%) (Auto) 22 % (24-48) Monocytes (%) (Auto) 9 % (0-9) Eosinophils (%) (Auto) 3 % (0-3) Basophils (%) (Auto) 1 % (0-3) Neutrophils # (Auto) 3.4 x10^3/uL (1.8-7.7) Lymphocytes # (Auto) 1.1 x10^3/uL (1.0-4.8) Monocytes # (Auto) 0.4 x10^3/uL (0.0-1.1) Eosinophils # (Auto) 0.1 x10^3/uL (0.0-0.7) Basophils # (Auto) 0.0 x10^3/uL (0.0-0.2) Prothrombin Time 15.1 SEC (11.7-14.0) Prothromb Time International Ratio 1.2 (0.8-1.1) Activated Partial Thromboplast Time 23 SEC (24-38) Sodium Level 145 mmol/L (136-145) Potassium Level 3.5 mmol/L (3.5-5.1) Chloride Level 107 mmol/L (98-107) Carbon Dioxide Level 31 mmol/L (21-32) Anion Gap 7 (6-14) Blood Urea Nitrogen 45 mg/dL (7-20) Creatinine 1.9 mg/dL (0.6-1.0) Estimated GFR (Cockcroft-Gault) 32.9 BUN/Creatinine Ratio 24 (6-20) Glucose Level 87 mg/dL (70-99) Calcium Level 9.5 mg/dL (8.5-10.1) Magnesium Level 2.5 mg/dL (1.8-2.4) Total Bilirubin 0.4 mg/dL (0.2-1.0) Aspartate Amino Transf (AST/SGOT) 20 U/L (15-37) Alanine Aminotransferase (ALT/SGPT) 7 U/L (14-59) Alkaline Phosphatase 76 U/L (46-116) Creatine Kinase 29 U/L (26-192) 27 U/L (26-192) Creatine Kinase MB (Mass) 0.7 ng/mL (0.0-3.6) 0.7 ng/mL (0.0-3.6) Creatine Kinase MB Relative Index 2.4 % (0-4) 2.6 % (0-4) Troponin I Quantitative 0.022 ng/mL (0.000-0.055) 0.017 ng/mL (0.000-0.055) 0.051 ng/mL (0.000-0.055) TF-Tmn-Y-Type Natriuretic Peptide 8982 pg/mL (0-124) Total Protein 8.4 g/dL (6.4-8.2) Albumin 2.9 g/dL (3.4-5.0) Albumin/Globulin Ratio 0.5 (1.0-1.7) Images Images Exam: CT head INDICATION: Headache TECHNIQUE: Sequential axial images through the head were obtained without the administration of IV contrast. Comparisons: None FINDINGS: No focal parenchymal lesion or hemorrhage is identified. There is no midline shift or sulcal effacement. Patchy hypodensities within the periventricular and subcortical white matter likely representing small vessel ischemic change. No acute vascular territory infarction is identified. Holm-white distinction is preserved. The ventricular system is within normal limits without compression hydrocephalus. The basal cisterns are well maintained. The visualized portions of the paranasal sinuses and mastoid air cells are well-pneumatized. No acute fractures. IMPRESSION: Findings a small vessel ischemic change, technically age indeterminate without prior imaging for comparison. Exposure: One or more of the following in the visualized dose reduction techniques were utilized for this examination: 1. Automated exposure control 2. Adjustment of the MA and/or KV according to patient size Use of iterative of reconstructive technique Electronically signed by: Heriberto Ramirez MD (06/05/2019 6:27 PM) [facility] [place] DICTATED and SIGNED BY: HERIBERTO RAMIREZ MD DATE: 06/05/191826 VTE Prophylaxis Ordered VTE Prophylaxis Devices: No VTE Pharmacological Prophylaxi: Yes Assessment/Plan Assessment/Plan Impression: 1. Hypertensive urgency 2. Chest pain 3. Acute exacerbation of CHF (congestive heart failure) 4. Coronary calcifications per recent CT. Will consult nephrology for renal optimization. May need C pending tests noted below. 5. headache Findings a small vessel ischemic change, technically age indeterminate without prior imaging for comparison. 6. Hx of lupus/antiphospholipid antibody syndrome with past PE PLAN ADMIT CVC BED CARDIOLOGY CONSULT serial troponin i Renal duplex. study TTE neurology consult 74 min time pt exam, chart review, > 50% of time spent with exam, chart review, pt care coordination LAMONT ZARATE MD Jun 06, 2019 07:21
--- NOTE | 2019-06-06 08:42 | PDOC2 ---
CURTIS DOE SKID MAN 06/06/19 0841: CARDIAC CONSULT DATE OF CONSULT Date of Consult DATE: 06/06/19 TIME: 08:31 REASON FOR CONSULT Reason for Consult: CP, HTN emergency REFERRING PHYSICIAN Referring Physician: Alma SOURCE Source: Chart review, Patient HISTORY OF PRESENT ILLNESS HISTORY OF PRESENT ILLNESS This is a pleasant 58 yo female admitted for complains of chest pain. No recent falls or injury but her pain started after she finished her physical therapy on Monday. She did tolerate her PT noting that she does cario and lifted some light wts. She described the pain to her left chest as punching sensation lasting few seconds intermittent. No frequent dizziness and no sensation of palpitations. She has been noted with PAFIB and the reading from her latest MCOT is pending as this was just returned to the company. No associated nausea, vomiting. No jaw or arm discomfort. No frequent indigestion. No exertional CP nor HOBSON. PAST MEDICAL HISTORY Past Medical History Cardiovascular: AFIB, HTN, Hyperlipidemia, coronary calcifications Pulmonary: COPD, Pulmonary embolus CENTRAL NERVOUS SYSTEM: Other (No pertinent history) GI: GERD Heme/Onc: Anemia NOS, Other (antiphospholipid antibody syndrome; chronic immunosuppresion; pancytopenia) Musculoskeletal: Osteoarthritis Rheumatologic: Rheumatoid arthritis, Other (lupus, unknown type) Infectious disease: No pertinent hx ENT: Allergic Rhinitis Renal/: Chronic renal insuff (CKD3) Endocrine: thyroid nodules, thyromegaly Dermatology: No pertinent hx PAST SURGICAL HISTORY Past Surgical History liver biopsy FAMILY HISTORY Family History: Hypertension SOCIAL HISTORY Smoke: Quit ALCOHOL: none Drugs: None Lives: Alone CURRENT MEDICATIONS CURRENT MEDICATIONS Current Medications Medications (Trade) Dose Ordered Sig/Blaine Route PRN Reason Start Time Stop Time Status Last Admin Dose Admin Hydralazine HCl (Apresoline Inj) 10 mg 1X ONCE IVP 06/05/19 18:00 06/05/19 18:01 DC 06/05/19 18:30 Labetalol HCl (Normodyne Iv Push) 20 mg 1X STAT IVP 06/05/19 19:10 06/05/19 19:13 DC 06/05/19 19:20 Losartan Potassium (Cozaar) 100 mg 1X ONCE PO 06/05/19 21:30 06/05/19 21:31 DC 06/05/19 21:38 Nitroglycerin/ Dextrose 250 ml @ 0 mls/hr 1X ONCE IV 06/05/19 21:30 06/05/19 21:31 DC 06/05/19 21:41 Acetaminophen (Tylenol) 650 mg PRN Q4HRS PRN PO HEADACHE 06/05/19 23:00 06/05/19 23:03 Nicardipine HCl 50 mg/Sodium Chloride 250 ml @ 25 mls/hr CONT PRN IV SEE I/O RECORD 06/06/19 02:00 06/06/19 02:15 ALLERGIES ALLERGIES: Coded Allergies: No Known Drug Allergies (Unverified , 05/23/14) ROS Review of System 14 point ROS evaluated with pertinent positives noted per HPI PHYSICAL EXAM General: Alert, Oriented X3, Cooperative, No acute distress HEENT: Atraumatic, Mucous membr. moist/pink Lungs: Clear to auscultation, Normal air movement Heart: Regular rate, Normal S1, Normal S2, Other (S4; FRANTZ 4/6 systolic murmur radiating to LLS border) Abdomen: Soft, No tenderness Extremities: No cyanosis, No edema Skin: No breakdown, No significant lesion Neuro: Normal speech, Sensation intact Psych/Mental Status: Mental status NL, Mood NL MUSCULOSKELETAL: Osteoarthritic changes both hands VITALS/I&O VITALS/I&O: Vital Signs Date Time Temp Pulse Resp B/P (MAP) Pulse Ox O2 Delivery O2 Flow Rate FiO2 06/06/19 07:07 65 155/78 (103) 06/06/19 07:00 97.6 18 98 Room Air 97.6 I & O 06/05/19 06/05/19 06/06/19 15:00 23:00 07:00 Intake Total 300 ml 120 ml Output Total 200 ml 400 ml Balance 100 ml -280 ml LABS Lab: Laboratory Tests Test 06/05/19 17:58 06/05/19 18:33 06/05/19 21:55 06/06/19 01:15 White Blood Count 5.1 x10^3/uL (4.0-11.0) Red Blood Count 2.87 x10^6/uL (3.50-5.40) L Hemoglobin 8.9 g/dL (12.0-15.5) L Hematocrit 26.6 % (36.0-47.0) L Mean Corpuscular Volume 93 fL (79-100) Mean Corpuscular Hemoglobin 31 pg (25-35) Mean Corpuscular Hemoglobin Concent 33 g/dL (31-37) Red Cell Distribution Width 16.4 % (11.5-14.5) H Platelet Count 154 x10^3/uL (140-400) Neutrophils (%) (Auto) 66 % (31-73) Lymphocytes (%) (Auto) 22 % (24-48) L Monocytes (%) (Auto) 9 % (0-9) Eosinophils (%) (Auto) 3 % (0-3) Basophils (%) (Auto) 1 % (0-3) Neutrophils # (Auto) 3.4 x10^3/uL (1.8-7.7) Lymphocytes # (Auto) 1.1 x10^3/uL (1.0-4.8) Monocytes # (Auto) 0.4 x10^3/uL (0.0-1.1) Eosinophils # (Auto) 0.1 x10^3/uL (0.0-0.7) Basophils # (Auto) 0.0 x10^3/uL (0.0-0.2) Prothrombin Time 15.1 SEC (11.7-14.0) H Prothrombin Time INR 1.2 (0.8-1.1) H Activated Partial Thromboplast Time 23 SEC (24-38) L Sodium Level 145 mmol/L (136-145) Potassium Level 3.5 mmol/L (3.5-5.1) Chloride Level 107 mmol/L (98-107) Carbon Dioxide Level 31 mmol/L (21-32) Anion Gap 7 (6-14) Blood Urea Nitrogen 45 mg/dL (7-20) H Creatinine 1.9 mg/dL (0.6-1.0) H Estimated GFR (Cockcroft-Gault) 32.9 BUN/Creatinine Ratio 24 (6-20) H Glucose Level 87 mg/dL (70-99) Calcium Level 9.5 mg/dL (8.5-10.1) Magnesium Level 2.5 mg/dL (1.8-2.4) H Total Bilirubin 0.4 mg/dL (0.2-1.0) Aspartate Amino Transferase (AST) 20 U/L (15-37) Alanine Aminotransferase (ALT) 7 U/L (14-59) L Alkaline Phosphatase 76 U/L (46-116) Creatine Kinase 29 U/L (26-192) 27 U/L (26-192) Creatine Kinase MB (Mass) 0.7 ng/mL (0.0-3.6) 0.7 ng/mL (0.0-3.6) Creatine Kinase MB Relative Index 2.4 % (0-4) 2.6 % (0-4) Troponin I Quantitative 0.022 ng/mL (0.000-0.055) 0.017 ng/mL (0.000-0.055) 0.051 ng/mL (0.000-0.055) IV-Jph-X-Type Natriuretic Peptide 8982 pg/mL (0-124) H Total Protein 8.4 g/dL (6.4-8.2) H Albumin 2.9 g/dL (3.4-5.0) L Albumin/Globulin Ratio 0.5 (1.0-1.7) L Laboratory Tests 06/05/19 17:58 Laboratory Tests 06/05/19 18:33 ECHOCARDIOGRAM ECHOCARDIOGRAM <Conclusion> The left ventricular systolic function is normal. The Ejection Fraction is 60-65%. There is normal LV segmental wall motion. Mild aortic stenosis. Trace mitral regurgitation. Mild tricuspid regurgitation. The PA pressure was estimated at 49 mmHg. There is no evidence of significant pericardial effusion. DATE: 12/13/18 1442 STRESS TEST STRESS TEST Conclusion 1. Regadenoson cardioisotope stress test did not show any evidence of ischemia or infarct. 2. Normal left ventricular systolic function with ejection fraction calculated at 68%. 3. Low risk for cardiac events. DATE: 04/19/19 1139 ASSESSMENT/PLAN ASSESSMENT/PLAN 1. Atypical chest pain: suspect from uncontrolled HTN but also suspicious of occult ischemia based on EKG 2. Acute on chronic diastolic CHF: mild, compensated 3. Mild 4. PAFIB: unclear AFIB burden. Will review recent MCOT 5. Hx of lupus/antiphospholipid antibody syndrome with past PE 6. Malignant HTN: improved with cardene 7. HLP 8. Anemia of chronic disease with prior hx of thrombocytopenia and leukopenia: r/t past immunosuppresion 9. CKD3 10. Hx of RA: currently just on plaquenil 11.. COPD/moderate pulmonary HTN: stable Recommendations 1. 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 Coronary calcifications per recent CT. Will consult nephrology for renal optimization. May need LHC pending tests noted below. 3. Renal duplex. limited TTE and EKG. 4. Restart home BP meds. will adjust per BP trend, titrate cardene off. labetolo l PRN BRENDA RAY MD 06/07/19 0846: CARDIAC CONSULT ASSESSMENT/PLAN ASSESSMENT/PLAN Patient seen and examined 06/06/19. Agree with PURIFICATION OPERATOR's assessment and plan. Resume home antihypertensives and titrate for better blood pressure control. W katelyn Cardene off as tolerated. Acute on chronic diastolic heart failure better compensated 2-D echo showed normal LV function without any wall motion abnormalities Renal arterial duplex scan did not show any significant renal artery stenosis PAF presently sinus rhythm We will consider cardiac catheterization pending nephrology clearance Thank you for your consultation CURTIS DOE APRN Jun 06, 2019 08:41 BRENDA RAY MD Jun 07, 2019 08:46
--- NOTE | 2019-06-06 09:05 | EKG ---
[facility] [address] [place] [address] Test Date: 2019-06-06 Test Time: 09:00:19 Pat Name: INA GRANT Department: Room: 244 1 Gender: F Forest Officer: [place] : 1960 Requested By: CURTIS DOE Order Number: [id number] Reading MD: Bud Reid MD Measurements Intervals [place] Rate: 70 P: 54 RI: 174 QRS: -28 QRSD: 94 T: 147 QT: 464 QTc: 504 Interpretive Statements SINUS RHYTHM LEFT ATRIAL ABNORMALITY LEFTWARD AXIS INCOMPLETE RIGHT BUNDLE BRANCH BLOCK LVH WITH REPOLARIZATION ABNORMALITY PRIOR INFERIOR INFARCT Electronically Signed On 06-24-2019 8:15:58 MATHEMATICS ACADEMIC CHAIR by Bud Reid MD
[2019-06-06] MEDS: hydroCHLOROthiazide 25 MG TABLET PO SCH (09:14)
[2019-06-06] MEDS: LOSARTAN POTASSIUM 50 MG TABLET. PO SCH (09:14)
[2019-06-06] MEDS: METOPROLOL SUCC 24HR ER 100 MG TAB.ER.24H. PO SCH (09:15)
--- NOTE | 2019-06-06 11:53 | CARD ---
MR#: [id number] Date of Study: 06/06/2019 Ordering Physician: CURTIS DOE, Referring Physician: CURTIS DOE Tech: Tsering Mcdonough [place]UC[place] APPROVED REPORT EXAM: LIMITED Two-dimensional and M-mode echocardiogram. Other Information Quality : AverageHR: 65bpm Rhythm : NSRTechnically limited study due to body habitus. INDICATION Congestive Heart Failure 2D DIMENSIONS Left Atrium(2D)3.8 (1.6-4.0cm)IVSd1.4 (0.7-1.1cm) Aortic Root(2D)2.7 (2.0-3.7cm)LVDd4.8 (3.9-5.9cm) PWd1.0 (0.7-1.1cm)LVDs2.9 (2.5-4.0cm) FS (%) 39.3 %SV76.3 ml LVEF(%)69.7 (>50%) Tricuspid Valve TR P. [id number] TR Peak Gr.[id number] LEFT VENTRICLE The left ventricle is normal size. There is moderate concentric left ventricular hypertrophy. The lef t ventricular systolic function is normal and the ejection fraction is within normal range. The Eject ion Fraction is 65-70%. There is normal LV segmental wall motion. RIGHT VENTRICLE The right ventricle is normal size. There is normal right ventricular wall thickness. The right ventr icular systolic function is normal. ATRIA The left atrium size is normal. The right atrium size is normal. The interatrial septum is intact wit h no evidence for an atrial septal defect or patent foramen ovale as noted on 2-D or Doppler imaging. AORTIC VALVE Aortic valve is not well visualized. No significant stenosis or regurgitation noted on doppler imagin g. MITRAL VALVE The mitral valve is normal in structure and function. Cannot rule out flail mitral valve chord versus artifact. No significant regurgitation noted, therefore, it is likely an artifact, correlate with cl inical exam. TRICUSPID VALVE The tricuspid valve is normal in structure and function. Doppler and Color Flow revealed trace regurg itation. RVSP of 51 mm Hg. There is no tricuspid valve prolapse or vegetation. There is no tricuspid valve stenosis. GREAT VESSELS The aortic root is normal in size. The ascending aorta is normal in size. The IVC is dilated and finesse apses <50% with inspiration. PERICARDIAL EFFUSION There is no evidence of significant pericardial effusion. Critical Notification Critical Value: No <Conclusion> The left ventricular systolic function is normal and the ejection fraction is within normal range. Th e Ejection Fraction is 65-70%. There is normal LV segmental wall motion. There is moderate concentric left ventricular hypertrophy. Aortic valve is not well visualized. No significant stenosis or regurgitation noted on doppler imagin g. Cannot rule out flail mitral valve chord versus artifact. No significant regurgitation noted, therefo re, it is likely an artifact, correlate with clinical exam. Doppler and Color Flow revealed trace regurgitation. RVSP of 51 mm Hg. Signed by : Bud Reid, Electronically Approved : 06/06/2019 11:52:45
--- NOTE | 2019-06-06 12:42 | PDOC2 ---
CONSULT Date of Consult Date of Consult DATE: 06/06/19 TIME: 12:28 Reason for Consult Reason for Consult: CKD may need [facility] Source Source: Chart review, Patient History of Present Illness Reason for Visit: Pt is a 58 yo female admitted for complains of chest pain. She has a Dx of CKD stage 3 - follows with our office - seen by me in Sep and by [employer]PER[employer] MANAGER on She described the pain to her left chest as punching sensation lasting few seconds intermittent. No frequent dizziness and no palpitations. She has been noted with PAFIB No associated nausea, vomiting. No jaw or arm discomfort. No frequent indigestion. No exertional CP nor HOBSON. Past Medical History Cardiovascular: AFIB, HTN, Hyperlipidemia Pulmonary: COPD, Pulmonary embolus CENTRAL NERVOUS SYSTEM: Other GI: GERD Heme/Onc: Anemia NOS, Other Musculoskeletal: Osteoarthritis Rheumatologic: Rheumatoid arthritis, Other Infectious disease: No pertinent hx Renal/: Chronic renal insuff Endocrine: No pertinent hx Past Surgical History Past Surgical History: Other Family History Family History: Hypertension Social History Quit ALCOHOL: none Drugs: None Lives: Alone Current Problem List Problem List Problems Medical Problems: (1) Acute exacerbation of CHF (congestive heart failure) Status: Acute (2) Chest pain Status: Acute (3) Hypertensive urgency Status: Acute Current Medications Current Medications Current Medications Hydralazine HCl (Apresoline Inj) 10 mg 1X ONCE IVP Last administered on 06/05/19at 18:30; Start 06/05/19 at 18:00; Stop 06/05/19 at 18:01; Status DC Labetalol HCl (Normodyne Iv Push) 20 mg 1X STAT IVP Last administered on 06/05/19at 19:20; Start 06/05/19 at 19:10; Stop 06/05/19 at 19:13; Status DC Ondansetron HCl (Zofran) 4 mg PRN Q8HRS PRN IV NAUSEA/VOMITING; Start 06/05/19 at 19:30; Stop 06/06/19 at 19:29 Fentanyl Citrate (Fentanyl 2ml Vial) 50 mcg PRN Q1HR PRN IV PAIN; Start 06/05/19 at 19:30; Stop 06/06/19 at 19:29 Labetalol HCl (Normodyne Iv Push) 20 mg PRN Q6HRS PRN IVP HYPERTENSION; Start 06/05/19 at 19:30 Losartan Potassium (Cozaar) 100 mg 1X ONCE PO Last administered on 06/05/19at 21:38; Start 06/05/19 at 21:30; Stop 06/05/19 at 21:31; Status DC Nitroglycerin/ Dextrose 250 ml @ 0 mls/hr 1X ONCE IV Last administered on 06/05/19at 21:41; Start 06/05/19 at 21:30; Stop 06/05/19 at 21:31; Status DC Nitroglycerin/ Dextrose 250 ml @ 1.5 mls/hr CONT PRN IV SEE I/O RECORD; Start 06/05/19 at 22:30; Stop 06/06/19 at 02:17; Status DC Acetaminophen (Tylenol) 650 mg PRN Q4HRS PRN PO HEADACHE Last administered on 06/05/19at 23:03; Start 06/05/19 at 23:00 Hydrochlorothiazide (Hydrodiuril) 25 mg DAILY PO Last administered on at 09:14; Start 06/06/19 at 09:00 Metoprolol Succinate (Toprol Xl) 100 mg DAILY PO Last administered on 06/06/19at 09:15; Start 06/06/19 at 09:00 Losartan Potassium (Cozaar) 100 mg DAILY PO Last administered on 06/06/19at 09:14; Start 06/06/19 at 09:00 Nicardipine HCl 50 mg/Sodium Chloride 250 ml @ 25 mls/hr CONT PRN IV SEE I/O RECORD Last administered on 06/06/19at 02:15; Start 06/06/19 at 02:00 Active Scripts Active Reported Hydrochlorothiazide Tablet (Hydrochlorothiazide) 25 Mg Tablet 25 Mg PO DAILY Protonix (Pantoprazole Sodium) 40 Mg Tablet.dr 40 Mg PO DAILYAC Losartan Potassium 100 Mg Tablet 100 Mg PO DAILY Hydroxychloroquine Sulfate 200 Mg Tablet 200 Mg PO DAILY Multivitamins (Multivitamin) 1 Each Tablet 1 Tab PO DAILY Metoprolol Succinate ( Xl ) (Metoprolol Succinate) 100 Mg Tab.er.24h 100 Mg PO DAILY Symbicort 160-4.5 Mcg Inhaler (Budesonide/Formoterol Fumarate) 10.2 Gm Hfa.aer.ad 1 Puff IH BID Spiriva (Tiotropium Belt) 18 Mcg Cap.w.dev 2 Inh IH DAILY Proair Hfa Inhaler (Albuterol Sulfate) 8.5 Gm Hfa.aer.ad 1 Puff INH PRN Q6HRS PRN Xarelto (Rivaroxaban) 10 Mg Tablet 10 Mg PO DAILY Atorvastatin Calcium 40 Mg Tablet 40 Mg PO HS Phoslo (Calcium Acetate) 667 Mg Capsule 1 Cap PO BIDWMEALS K-Tab ER (Potassium Chloride) 20 Meq Tablet.er 20 Meq PO DAILY Furosemide 40 Mg Tablet 40 Mg PO [id number] Allergies Allergies: Coded Allergies: No Known Drug Allergies (Unverified , 05/23/14) ROS Review of System Per HPI Physical Exam Physical Exam General: No acute distress HEENT: Atraumatic, Mucous membr. moist/pink Neck Supple Lungs: Clear to auscultation, Non labored Heart: Regular rate, Normal S1, Normal S2, systolic murmur + Abdomen: Soft, No tenderness Extremities: No cyanosis, No edema Skin: No rash Neuro: Grossly normal Psych/Mental Status: Mental status NL, Mood NL No reid , No CVA or SP tenderness Vital Signs Vital Signs Date Time Temp Pulse Resp B/P (MAP) Pulse Ox O2 Delivery O2 Flow Rate FiO2 06/06/19 11:00 98.0 68 18 162/79 (106) 96 Room Air 98.0 Assessment & Plan CKD stage 3-Follows with our office, seen by me in sep and most recent appt with [employer] MANAGER in Apr Currently close to her baseline renal function S/P Renal Bx in 2012 Increased risk of ALIZA dw Pt , After weighing the risks and benefit per Card if she needs LHC- ALIZA with IVF, Hold Diuretics Chest pain- Atypical per cardiology 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 Baez as OP and was on Aranesp - none in past few months per patient Labs Labs Laboratory Tests Test 06/05/19 17:58 06/05/19 18:33 06/05/19 21:55 06/06/19 01:15 White Blood Count 5.1 x10^3/uL (4.0-11.0) Red Blood Count 2.87 x10^6/uL (3.50-5.40) Hemoglobin 8.9 g/dL (12.0-15.5) Hematocrit 26.6 % (36.0-47.0) Mean Corpuscular Volume 93 fL (79-100) Mean Corpuscular Hemoglobin 31 pg (25-35) Mean Corpuscular Hemoglobin Concent 33 g/dL (31-37) Red Cell Distribution Width 16.4 % (11.5-14.5) Platelet Count 154 x10^3/uL (140-400) Neutrophils (%) (Auto) 66 % (31-73) Lymphocytes (%) (Auto) 22 % (24-48) Monocytes (%) (Auto) 9 % (0-9) Eosinophils (%) (Auto) 3 % (0-3) Basophils (%) (Auto) 1 % (0-3) Neutrophils # (Auto) 3.4 x10^3/uL (1.8-7.7) Lymphocytes # (Auto) 1.1 x10^3/uL (1.0-4.8) Monocytes # (Auto) 0.4 x10^3/uL (0.0-1.1) Eosinophils # (Auto) 0.1 x10^3/uL (0.0-0.7) Basophils # (Auto) 0.0 x10^3/uL (0.0-0.2) Prothrombin Time 15.1 SEC (11.7-14.0) Prothromb Time International Ratio 1.2 (0.8-1.1) Activated Partial Thromboplast Time 23 SEC (24-38) Sodium Level 145 mmol/L (136-145) Potassium Level 3.5 mmol/L (3.5-5.1) Chloride Level 107 mmol/L (98-107) Carbon Dioxide Level 31 mmol/L (21-32) Anion Gap 7 (6-14) Blood Urea Nitrogen 45 mg/dL (7-20) Creatinine 1.9 mg/dL (0.6-1.0) Estimated GFR (Cockcroft-Gault) 32.9 BUN/Creatinine Ratio 24 (6-20) Glucose Level 87 mg/dL (70-99) Calcium Level 9.5 mg/dL (8.5-10.1) Magnesium Level 2.5 mg/dL (1.8-2.4) Total Bilirubin 0.4 mg/dL (0.2-1.0) Aspartate Amino Transf (AST/SGOT) 20 U/L (15-37) Alanine Aminotransferase (ALT/SGPT) 7 U/L (14-59) Alkaline Phosphatase 76 U/L (46-116) Creatine Kinase 29 U/L (26-192) 27 U/L (26-192) Creatine Kinase MB (Mass) 0.7 ng/mL (0.0-3.6) 0.7 ng/mL (0.0-3.6) Creatine Kinase MB Relative Index 2.4 % (0-4) 2.6 % (0-4) Troponin I Quantitative 0.022 ng/mL (0.000-0.055) 0.017 ng/mL (0.000-0.055) 0.051 ng/mL (0.000-0.055) XX-Cwd-N-Type Natriuretic Peptide 8982 pg/mL (0-124) Total Protein 8.4 g/dL (6.4-8.2) Albumin 2.9 g/dL (3.4-5.0) Albumin/Globulin Ratio 0.5 (1.0-1.7) Test 06/06/19 10:00 Troponin I Quantitative 0.064 ng/mL (0.000-0.055) Laboratory Tests Test 06/05/19 17:58 06/05/19 18:33 06/05/19 21:55 06/06/19 01:15 White Blood Count 5.1 x10^3/uL (4.0-11.0) Red Blood Count 2.87 x10^6/uL (3.50-5.40) Hemoglobin 8.9 g/dL (12.0-15.5) Hematocrit 26.6 % (36.0-47.0) Mean Corpuscular Volume 93 fL (79-100) Mean Corpuscular Hemoglobin 31 pg (25-35) Mean Corpuscular Hemoglobin Concent 33 g/dL (31-37) Red Cell Distribution Width 16.4 % (11.5-14.5) Platelet Count 154 x10^3/uL (140-400) Neutrophils (%) (Auto) 66 % (31-73) Lymphocytes (%) (Auto) 22 % (24-48) Monocytes (%) (Auto) 9 % (0-9) Eosinophils (%) (Auto) 3 % (0-3) Basophils (%) (Auto) 1 % (0-3) Neutrophils # (Auto) 3.4 x10^3/uL (1.8-7.7) Lymphocytes # (Auto) 1.1 x10^3/uL (1.0-4.8) Monocytes # (Auto) 0.4 x10^3/uL (0.0-1.1) Eosinophils # (Auto) 0.1 x10^3/uL (0.0-0.7) Basophils # (Auto) 0.0 x10^3/uL (0.0-0.2) Prothrombin Time 15.1 SEC (11.7-14.0) Prothromb Time International Ratio 1.2 (0.8-1.1) Activated Partial Thromboplast Time 23 SEC (24-38) Sodium Level 145 mmol/L (136-145) Potassium Level 3.5 mmol/L (3.5-5.1) Chloride Level 107 mmol/L (98-107) Carbon Dioxide Level 31 mmol/L (21-32) Anion Gap 7 (6-14) Blood Urea Nitrogen 45 mg/dL (7-20) Creatinine 1.9 mg/dL (0.6-1.0) Estimated GFR (Cockcroft-Gault) 32.9 BUN/Creatinine Ratio 24 (6-20) Glucose Level 87 mg/dL (70-99) Calcium Level 9.5 mg/dL (8.5-10.1) Magnesium Level 2.5 mg/dL (1.8-2.4) Total Bilirubin 0.4 mg/dL (0.2-1.0) Aspartate Amino Transf (AST/SGOT) 20 U/L (15-37) Alanine Aminotransferase (ALT/SGPT) 7 U/L (14-59) Alkaline Phosphatase 76 U/L (46-116) Creatine Kinase 29 U/L (26-192) 27 U/L (26-192) Creatine Kinase MB (Mass) 0.7 ng/mL (0.0-3.6) 0.7 ng/mL (0.0-3.6) Creatine Kinase MB Relative Index 2.4 % (0-4) 2.6 % (0-4) Troponin I Quantitative 0.022 ng/mL (0.000-0.055) 0.017 ng/mL (0.000-0.055) 0.051 ng/mL (0.000-0.055) LI-Kvb-C-Type Natriuretic Peptide 8982 pg/mL (0-124) Total Protein 8.4 g/dL (6.4-8.2) Albumin 2.9 g/dL (3.4-5.0) Albumin/Globulin Ratio 0.5 (1.0-1.7) Test 06/06/19 10:00 Troponin I Quantitative 0.064 ng/mL (0.000-0.055) Review All relevant outside records, renal labs, imaging studies, telemetry/EKG's were reviewed. SHEILA CREWS MD Jun 06, 2019 12:42
--- NOTE | 2019-06-06 13:18 | NUR ---
SS following for discharge planning. SS reviewed pt chart. Pt is from home and is currently on room air. No discharge needs noted at this time. SS will continue to follow for discharge planning.
[2019-06-06] MEDS: LABETALOL 20 MG/4 ML DISP.SYRIN. IVP PRN ×2 (15:08→21:40)
--- NOTE | 2019-06-06 15:44 | RAD ---
EXAM: Holm scale and color Doppler renal artery sonogram. HISTORY: Hypertension. TECHNIQUE: Holm scale and color Doppler sonographic imaging of the kidneys and renal arteries with spectral waveform analysis was performed. COMPARISON: None. FINDINGS: The right kidney measures 10.2 cm [id number] and the left kidney measures 9.6 cm [id number]. There are small cysts within the right kidney measuring 1.5 cm and 0.7 cm. There is a single cyst within the left kidney measuring 0.8 cm. The renal parenchyma is echogenic. There is no hydronephrosis. The bladder is unremarkable. The peak systolic velocity within the right renal artery is 122 cm/s. The peak systolic velocity within the left renal artery is 86 cm/s. There are normal renal artery to aorta velocity ratios. IMPRESSION: 1. No Doppler evidence of greater than 60% stenosis within the renal arteries. 2. Echogenic renal parenchyma, a finding which can be seen with medical renal disease. 3. Small simple appearing renal cysts. Electronically signed by: Giovanna Baker MD (06/06/2019 3:41 PM) [facility]
[2019-06-06] MEDS: FUROSEMIDE 40 MG TABLET. PO SCH (15:45)
[2019-06-06] MEDS ORDERED: ALBUTEROL SULFATE 2.5 MG/3 ML NEBU. NEB SCH (16:00)
--- NOTE | 2019-06-06 18:18 | PDOC2 ---
NEUROLOGY CONSULT Date of Admission Date of Admission DATE: 06/06/19 TIME: 18:06 Reason for Consult Reason for Consult: IMPRESSION: Hypertensive encephalopathy. Metabolic encephalopathy. Hypertensive emergency, DAVID 238/108-155 mmHg. Headaches. SOB. Palpitation. Lupus? HLD. HTN, poorly controlled. COPD. Renal failure. Pulmonary infiltrate? RECOMMENDATIONS/PLAN: HCT performed, no ICH. BP control. Treat medical diseases. Lab: see orders. HISTORY OF PRESENT ILLNESS This is a a 58-year-old AA female with history of hypertension. She developed symptoms of chest pain, palpitation, SOB, headaches, confusion and was brought to the ER of [facility]. She has been noted with PAFIB. No associated nausea, vomiting. Neurology was requested for a consultation on 06/06/19. Patient stated her headaches resolved. No symptoms of [employer] lupus this time. PAST MEDICAL HISTORY Past Medical History Cardiovascular: AFIB, HTN, Hyperlipidemia, coronary calcifications Pulmonary: COPD, Pulmonary embolus CENTRAL NERVOUS SYSTEM: Other (No pertinent history) GI: GERD Heme/Onc: Anemia NOS, Other (antiphospholipid antibody syndrome; chronic immunosuppresion; pancytopenia) Musculoskeletal: Osteoarthritis Rheumatologic: Rheumatoid arthritis, Other (lupus, unknown type) Infectious disease: No pertinent hx ENT: Allergic Rhinitis Renal/: Chronic renal insuff (CKD3) Endocrine: thyroid nodules, thyromegaly Dermatology: No pertinent hx PAST SURGICAL HISTORY Liver biopsy FAMILY HISTORY Hypertension SOCIAL HISTORY Smoke: Quit ALCOHOL: none Drugs: None Lives: Alone ALLERGY: NKDA MEDICATIONS: Refer to MAR REVIEW OF SYSTEMS: Constitutional: No malnutrition, cachexia. Head: No recent traumatic brain or head injury. Skin: No edema, or rash. Ear: No infection. Eyes: No vision loss or color blindness. Nose: No bleeding or purulent discharges. Hearing: No hearing decrease. Neck: No injury. Breast: No history of cancer, masses,or discharges. Cardiac: PAFib, HTN, HLD. Pulmonary: COPD. GI: No GI ulcer, GI bleeding. Urinary/genital: UTI. Endocrinologic: No cousin face, craniofacial dysmorphism, polydactyly. Skeletomuscular: No muscular atrophy, deformity. Neurological: see HP. Psychiatric: Denies drug use/abuse. Otherwise, not [id number] review of systems. PHYSICAL EXAMINATION: General appearance is in subacute distress. HEENT: Normocephalic and nontraumatic. Eyes, nose, ears, and throat are unremarkable. Neck is supple. No lymphadenopathy. No crepitus. Cardiovascular: S1, S2. Pulmonary: Clear to auscultation bilaterally. Abdomen: Bowel sounds are positive. Abdomen is soft, nontender, and nondistended. Extremities: No rash, lesions, or edema. No restriction of range of motion NEUROLOGICAL EXAMINATION: Alert Oriented to time, place and person. PERRL. EOMI. CN: no focal findings. Muscle tone: within normal. Muscle strength: 5 DTR: 2 Plantar reflex: Flexor response bilaterally Gait: not examined in bed. Sensory exam: no abnormal findings. No cerebellar signs elicited. F-T-N test fine. Current Medications Current Medications Current Medications Hydralazine HCl (Apresoline Inj) 10 mg 1X ONCE IVP Last administered on 06/05/19at 18:30; Start 06/05/19 at 18:00; Stop 06/05/19 at 18:01; Status DC Labetalol HCl (Normodyne Iv Push) 20 mg 1X STAT IVP Last administered on 06/05/19at 19:20; Start 06/05/19 at 19:10; Stop 06/05/19 at 19:13; Status DC Ondansetron HCl (Zofran) 4 mg PRN Q8HRS PRN IV NAUSEA/VOMITING; Start 06/05/19 at 19:30; Stop 06/06/19 at 19:29 Fentanyl Citrate (Fentanyl 2ml Vial) 50 mcg PRN Q1HR PRN IV PAIN; Start 06/05/19 at 19:30; Stop 06/06/19 at 19:29 Labetalol HCl (Normodyne Iv Push) 20 mg PRN Q6HRS PRN IVP HYPERTENSION Last administered on 06/06/19at 15:08; Start 06/05/19 at 19:30 Losartan Potassium (Cozaar) 100 mg 1X ONCE PO Last administered on 06/05/19at 21:38; Start 06/05/19 at 21:30; Stop 06/05/19 at 21:31; Status DC Nitroglycerin/ Dextrose 250 ml @ 0 mls/hr 1X ONCE IV Last administered on 06/05/19at 21:41; Start 06/05/19 at 21:30; Stop 06/05/19 at 21:31; Status DC Nitroglycerin/ Dextrose 250 ml @ 1.5 mls/hr CONT PRN IV SEE I/O RECORD; Start 06/05/19 at 22:30; Stop 06/06/19 at 02:17; Status DC Acetaminophen (Tylenol) 650 mg PRN Q4HRS PRN PO HEADACHE Last administered on 06/05/19at 23:03; Start 06/05/19 at 23:00 Hydrochlorothiazide (Hydrodiuril) 25 mg DAILY PO Last administered on 06/06/19 at 09:14; Start 06/06/19 at 09:00 Metoprolol Succinate (Toprol Xl) 100 mg DAILY PO Last administered on 06/06/19at 09:15; Start 06/06/19 at 09:00 Losartan Potassium (Cozaar) 100 mg DAILY PO Last administered on 06/06/19at 09:14; Start 06/06/19 at 09:00 Nicardipine HCl 50 mg/Sodium Chloride 250 ml @ 25 mls/hr CONT PRN IV SEE I/O RECORD Last administered on 06/06/19at 02:15; Start 06/06/19 at 02:00 Albuterol Sulfate (Ventolin Neb Soln) 2.5 mg PRN Q6HRS PRN INH SHORTNESS OF BREATH; Start 06/06/19 at 15:15 Atorvastatin Calcium (Lipitor) 40 mg HS PO ; Start 06/06/19 at 21:00 Calcium Acetate (Phoslo) 667 mg BIDWMEALS PO ; Start 06/06/19 at 17:00 Furosemide (Lasix) 40 mg BID92 PO ; Start 06/06/19 at 15:45 Hydroxychloroquine Sulfate (Plaquenil) 200 mg DAILY PO ; Start 06/07/19 at 09:00 Pantoprazole Sodium (Protonix) 40 mg DAILYAC PO ; Start 06/07/19 at 07:30 Rivaroxaban (Xarelto) 10 mg DAILY PO ; Start 06/07/19 at 09:00 Non-Formulary Medication (Budesonide/ Formoterol Fumarate (Symbicort 160-4.5 Mcg Inhaler)) 1 puff BID IH ; Start 06/06/19 at 21:00; Stop 06/06/19 at 15:27; Status DC Multivitamins (Thera M Plus) 1 tab DAILY PO ; Start 10/25/19 at 09:00 Potassium Chloride (Klor-Con) 20 meq DAILYWBKFT PO ; Start 06/07/19 at 08:00 Non-Formulary Medication (Tiotropium [place] (Spiriva)) 2 inh DAILY IH ; Start 06/07/19 at 09:00; Stop 06/06/19 at 15:28; Status DC Budesonide (Pulmicort) 0.5 mg RTBID NEB ; Start 06/06/19 at 20:00 Albuterol Sulfate (Ventolin Neb Soln) 2.5 mg RTQID NEB ; Start 06/06/19 at 16:00; Stop 06/06/19 at 15:35; Status DC Albuterol/ Ipratropium (Duoneb) 3 ml RTQID NEB ; Start 06/06/19 at 16:00 Isosorbide Mononitrate (Imdur) 60 mg DAILY PO ; Start 06/07/19 at 09:00 Active Scripts Active Reported Hydrochlorothiazide Tablet (Hydrochlorothiazide) 25 Mg Tablet 25 Mg PO DAILY Protonix (Pantoprazole Sodium) 40 Mg Tablet.dr 40 Mg PO DAILYAC Losartan Potassium 100 Mg Tablet 100 Mg PO DAILY Hydroxychloroquine Sulfate 200 Mg Tablet 200 Mg PO DAILY Multivitamins (Multivitamin) 1 Each Tablet 1 Tab PO DAILY Metoprolol Succinate ( Xl ) (Metoprolol Succinate) 100 Mg Tab.er.24h 100 Mg PO DAILY Symbicort 160-4.5 Mcg Inhaler (Budesonide/Formoterol Fumarate) 10.2 Gm Hfa.aer.ad 1 Puff IH BID Spiriva (Tiotropium [place]) 18 Mcg Cap.w.dev 2 Inh IH DAILY Proair Hfa Inhaler (Albuterol Sulfate) 8.5 Gm Hfa.aer.ad 1 Puff INH PRN Q6HRS PRN Xarelto (Rivaroxaban) 10 Mg Tablet 10 Mg PO DAILY Atorvastatin Calcium 40 Mg Tablet 40 Mg PO HS Phoslo (Calcium Acetate) 667 Mg Capsule 1 Cap PO BIDWMEALS K-Tab ER (Potassium Chloride) 20 Meq Tablet.er 20 Meq PO DAILY Furosemide 40 Mg Tablet 40 Mg PO [id number] Allergies Allergies: Allergies Coded Allergies Type Severity Reaction Last Updated Verified No Known Drug Allergies 05/23/14 No ROS Review of System The patient denies any associated fevers, chills, headache, ear pain, rhinorrhea, sore throat, stiff neck, productive cough, chest pain, shortness of breath, back or flank pain, abdominal pain, nausea, vomiting, diarrhea, constipation, dysuria, rash, numbness, weakness, tingling, incontinence, difficulty ambulating, or diaphoresis. Physical Exam Physical Exam General: Well developed, well nourished, no acute distress, well appearing HEENT: Pupils equally round and reactive to light, EOMI, no discharge, normal conjunctiva Neck: Supple, no nuchal rigidity, no JVD, trachea midline, no tenderness Cardiac: RRR, no murmurs, no gallops, no rubs Chest/Lungs: CTAB, no wheeze, no rhonchi, no crackles Abdomen: soft, non-distended, no guarding, no peritoneal signs, non-tender Back: No tenderness Extremities: no edema, pulses intact, non-tender,capillary refill <3 sec bilateral upper and lower extremities, Neuro: Alert and oriented x 4, no focal deficits, normal speech Vitals Vitals: Vital Signs Date Time Temp Pulse Resp B/P (MAP) Pulse Ox O2 Delivery O2 Flow Rate FiO2 06/06/19 16:06 79 166/83 (110) 06/06/19 15:00 97.7 18 97 Room Air 97.7 Labs Labs Laboratory Tests Test 06/05/19 17:58 06/05/19 18:33 06/05/19 21:55 06/06/19 01:15 White Blood Count 5.1 x10^3/uL (4.0-11.0) Red Blood Count 2.87 x10^6/uL (3.50-5.40) Hemoglobin 8.9 g/dL (12.0-15.5) Hematocrit 26.6 % (36.0-47.0) Mean Corpuscular Volume 93 fL (79-100) Mean Corpuscular Hemoglobin 31 pg (25-35) Mean Corpuscular Hemoglobin Concent 33 g/dL (31-37) Red Cell Distribution Width 16.4 % (11.5-14.5) Platelet Count 154 x10^3/uL (140-400) Neutrophils (%) (Auto) 66 % (31-73) Lymphocytes (%) (Auto) 22 % (24-48) Monocytes (%) (Auto) 9 % (0-9) Eosinophils (%) (Auto) 3 % (0-3) Basophils (%) (Auto) 1 % (0-3) Neutrophils # (Auto) 3.4 x10^3/uL (1.8-7.7) Lymphocytes # (Auto) 1.1 x10^3/uL (1.0-4.8) Monocytes # (Auto) 0.4 x10^3/uL (0.0-1.1) Eosinophils # (Auto) 0.1 x10^3/uL (0.0-0.7) Basophils # (Auto) 0.0 x10^3/uL (0.0-0.2) Prothrombin Time 15.1 SEC (11.7-14.0) Prothromb Time International Ratio 1.2 (0.8-1.1) Activated Partial Thromboplast Time 23 SEC (24-38) Sodium Level 145 mmol/L (136-145) Potassium Level 3.5 mmol/L (3.5-5.1) Chloride Level 107 mmol/L (98-107) Carbon Dioxide Level 31 mmol/L (21-32) Anion Gap 7 (6-14) Blood Urea Nitrogen 45 mg/dL (7-20) Creatinine 1.9 mg/dL (0.6-1.0) Estimated GFR (Cockcroft-Gault) 32.9 BUN/Creatinine Ratio 24 (6-20) Glucose Level 87 mg/dL (70-99) Calcium Level 9.5 mg/dL (8.5-10.1) Magnesium Level 2.5 mg/dL (1.8-2.4) Total Bilirubin 0.4 mg/dL (0.2-1.0) Aspartate Amino Transf (AST/SGOT) 20 U/L (15-37) Alanine Aminotransferase (ALT/SGPT) 7 U/L (14-59) Alkaline Phosphatase 76 U/L (46-116) Creatine Kinase 29 U/L (26-192) 27 U/L (26-192) Creatine Kinase MB (Mass) 0.7 ng/mL (0.0-3.6) 0.7 ng/mL (0.0-3.6) Creatine Kinase MB Relative Index 2.4 % (0-4) 2.6 % (0-4) Troponin I Quantitative 0.022 ng/mL (0.000-0.055) 0.017 ng/mL (0.000-0.055) 0.051 ng/mL (0.000-0.055) AV-Rbu-P-Type Natriuretic Peptide 8982 pg/mL (0-124) Total Protein 8.4 g/dL (6.4-8.2) Albumin 2.9 g/dL (3.4-5.0) Albumin/Globulin Ratio 0.5 (1.0-1.7) Test 06/06/19 10:00 06/06/19 14:00 Troponin I Quantitative 0.064 ng/mL (0.000-0.055) 0.039 ng/mL (0.000-0.055) Laboratory Tests Test 06/05/19 18:33 06/05/19 21:55 06/06/19 01:15 06/06/19 10:00 Sodium Level 145 mmol/L (136-145) Potassium Level 3.5 mmol/L (3.5-5.1) Chloride Level 107 mmol/L (98-107) Carbon Dioxide Level 31 mmol/L (21-32) Anion Gap 7 (6-14) Blood Urea Nitrogen 45 mg/dL (7-20) Creatinine 1.9 mg/dL (0.6-1.0) Estimated GFR (Cockcroft-Gault) 32.9 BUN/Creatinine Ratio 24 (6-20) Glucose Level 87 mg/dL (70-99) Calcium Level 9.5 mg/dL (8.5-10.1) Magnesium Level 2.5 mg/dL (1.8-2.4) Total Bilirubin 0.4 mg/dL (0.2-1.0) Aspartate Amino Transf (AST/SGOT) 20 U/L (15-37) Alanine Aminotransferase (ALT/SGPT) 7 U/L (14-59) Alkaline Phosphatase 76 U/L (46-116) Creatine Kinase 29 U/L (26-192) 27 U/L (26-192) Creatine Kinase MB (Mass) 0.7 ng/mL (0.0-3.6) 0.7 ng/mL (0.0-3.6) Creatine Kinase MB Relative Index 2.4 % (0-4) 2.6 % (0-4) Troponin I Quantitative 0.022 ng/mL (0.000-0.055) 0.017 ng/mL (0.000-0.055) 0.051 ng/mL (0.000-0.055) 0.064 ng/mL (0.000-0.055) SQ-Ybm-R-Type Natriuretic Peptide 8982 pg/mL (0-124) Total Protein 8.4 g/dL (6.4-8.2) Albumin 2.9 g/dL (3.4-5.0) Albumin/Globulin Ratio 0.5 (1.0-1.7) Test 06/06/19 14:00 Troponin I Quantitative 0.039 ng/mL (0.000-0.055) HAYLEY CLEMENT MD Jun 06, 2019 18:18
[2019-06-06] MEDS: CALCIUM ACETATE 667 MG CAPSULE PO SCH (18:26)
[2019-06-06] MEDS: IPRATRPIUM/ALBUTEROL 0.5/2.5MG 3 ML NEBU. NEB SCH (20:03)
[2019-06-06] MEDS: BUDESONIDE 0.5 MG/2 ML NEBU. NEB SCH (20:03)
[2019-06-06] MEDS ORDERED: NON FORMULARY ITEM (Budesonide/Formoterol Fumarate (Symbicort 160-4.5 Mcg Inhaler) 1 PUFF) IH SCH (21:00)
[2019-06-06] MEDS: ATORVASTATIN CALCIUM 40 MG TABLET. PO SCH (21:40)
[2019-06-07] VITALS (16 sets, daily range): BP systolic 165–208; BP diastolic 79–101
[2019-06-07] MEDS: ACETAMINOPHEN 325 MG TABLET. PO PRN ×2 (00:30→18:41)
[2019-06-07] MEDS ORDERED: hydrALAZINE 20 MG/ML VIAL. IVP ONE ×3 (02:00→16:00)
[2019-06-07] MEDS: IPRATRPIUM/ALBUTEROL 0.5/2.5MG 3 ML NEBU. NEB SCH ×4 (07:11→20:48)
[2019-06-07] MEDS: BUDESONIDE 0.5 MG/2 ML NEBU. NEB SCH ×2 (07:11→20:48)
[2019-06-07] MEDS: PANTOPRAZOLE 40 MG TABLET.DR. PO SCH (07:45)
[2019-06-07] MEDS: LABETALOL 20 MG/4 ML DISP.SYRIN. IVP PRN ×3 (07:46→23:35)
[2019-06-07] MEDS: POTASSIUM CHLORIDE 20 MEQ TABLET.ER. PO SCH (08:00)
[2019-06-07] MEDS: LOSARTAN POTASSIUM 50 MG TABLET. PO SCH (08:55)
[2019-06-07] MEDS: CALCIUM ACETATE 667 MG CAPSULE PO SCH ×2 (08:55→18:39)
[2019-06-07] MEDS: METOPROLOL SUCC 24HR ER 100 MG TAB.ER.24H. PO SCH (08:55)
[2019-06-07] MEDS: ISOSORBIDE MONONITRATE ER 30 MG TAB.ER.24H PO SCH (08:58)
[2019-06-07] MEDS: RIVAROXABAN 10 MG TABLET. PO SCH (09:00)
[2019-06-07] MEDS ORDERED: NON FORMULARY ITEM (Tiotropium Bromide (Spiriva) 2 INH) IH SCH (09:00)
[2019-06-07] MEDS: FUROSEMIDE 40 MG TABLET. PO SCH ×2 (09:00→14:00)
--- NOTE | 2019-06-07 09:18 | PDOC ---
PROGRESS NOTES History of Present Illness History of Present Illness VTE Prophylaxis Ordered VTE Prophylaxis Devices: No VTE Pharmacological Prophylaxi: Yes Assessment/Plan Assessment/Plan Impression: 1. Hypertensive urgency 2. Chest pain 3. Acute exacerbation of CHF (congestive heart failure) 4. Coronary calcifications per recent CT. Will consult nephrology for renal optimization. May need LHC pending tests noted below. 5. headache Findings a small vessel ischemic change, technically age indeterminate without prior imaging for comparison. 6. Hx of lupus/antiphospholipid antibody syndrome with past PE 7. HYPERTENSIVE ENCEPHALOPATHY PLAN ADMIT CVC BED CARDIOLOGY CONSULT serial troponin i Renal duplex. study TTE neurology consult 38 min time pt exam, chart review, > 50% of time spent with exam, chart review, pt care coordination Vitals Vitals Vital Signs Date Time Temp Pulse Resp B/P (MAP) Pulse Ox O2 Delivery O2 Flow Rate FiO2 06/07/19 08:58 85 166/81 06/07/19 07:56 Room Air 06/07/19 07:12 99 06/07/19 07:08 97.5 18 97.5 Physical Exam General: Alert, Oriented X3, Cooperative, No acute distress Heart: Regular rate, Normal S1, Normal S2, Other (S4; FRANTZ 4/6 systolic murmur radiating to LLS border) Lungs: Clear Abdomen: Normal bowel sounds, Soft, No tenderness Extremities: No cyanosis Skin: No breakdown, No significant lesion Labs LABS REASON: uncontrolled HTN, lupus PROCEDURE: RENAL BILAT RENAL DUPLEX CO EXAM: Holm scale and color Doppler renal artery sonogram. HISTORY: Hypertension. TECHNIQUE: Holm scale and color Doppler sonographic imaging of the kidneys and renal arteries with spectral waveform analysis was performed. COMPARISON: None. FINDINGS: The right kidney measures 10.2 cm [id number] and the left kidney measures 9.6 cm [id number]. There are small cysts within the right kidney measuring 1.5 cm and 0.7 cm. There is a single cyst within the left kidney measuring 0.8 cm. The renal parenchyma is echogenic. There is no hydronephrosis. The bladder is unremarkable. The peak systolic velocity within the right renal artery is 122 cm/s. The peak systolic velocity within the left renal artery is 86 cm/s. There are normal renal artery to aorta velocity ratios. IMPRESSION: 1. No Doppler evidence of greater than 60% stenosis within the renal arteries. 2. Echogenic renal parenchyma, a finding which can be seen with medical renal disease. 3. Small simple appearing renal cysts. Electronically signed by: Giovanna Baker MD (06/06/2019 3:41 PM) [place] [id number] DICTATED and SIGNED BY: GIOVANNA BAKER MD DATE: 06/06/19 1541 Laboratory Tests Test 06/06/19 10:00 06/06/19 14:00 Troponin I Quantitative 0.064 ng/mL (0.000-0.055) 0.039 ng/mL (0.000-0.055) Assessment and Plan Assessmemt and Plan Problems Medical Problems: (1) Acute exacerbation of CHF (congestive heart failure) Status: Acute (2) Chest pain Status: Acute (3) Hypertensive urgency Status: Acute Comment Review of Relevant I have reviewed the following items gregorio (where applicable) has been applied. Labs Laboratory Tests Test 06/05/19 17:58 06/05/19 18:33 06/05/19 21:55 06/06/19 01:15 White Blood Count 5.1 x10^3/uL (4.0-11.0) Red Blood Count 2.87 x10^6/uL (3.50-5.40) Hemoglobin 8.9 g/dL (12.0-15.5) Hematocrit 26.6 % (36.0-47.0) Mean Corpuscular Volume 93 fL (79-100) Mean Corpuscular Hemoglobin 31 pg (25-35) Mean Corpuscular Hemoglobin Concent 33 g/dL (31-37) Red Cell Distribution Width 16.4 % (11.5-14.5) Platelet Count 154 x10^3/uL (140-400) Neutrophils (%) (Auto) 66 % (31-73) Lymphocytes (%) (Auto) 22 % (24-48) Monocytes (%) (Auto) 9 % (0-9) Eosinophils (%) (Auto) 3 % (0-3) Basophils (%) (Auto) 1 % (0-3) Neutrophils # (Auto) 3.4 x10^3/uL (1.8-7.7) Lymphocytes # (Auto) 1.1 x10^3/uL (1.0-4.8) Monocytes # (Auto) 0.4 x10^3/uL (0.0-1.1) Eosinophils # (Auto) 0.1 x10^3/uL (0.0-0.7) Basophils # (Auto) 0.0 x10^3/uL (0.0-0.2) Prothrombin Time 15.1 SEC (11.7-14.0) Prothromb Time International Ratio 1.2 (0.8-1.1) Activated Partial Thromboplast Time 23 SEC (24-38) Sodium Level 145 mmol/L (136-145) Potassium Level 3.5 mmol/L (3.5-5.1) Chloride Level 107 mmol/L (98-107) Carbon Dioxide Level 31 mmol/L (21-32) Anion Gap 7 (6-14) Blood Urea Nitrogen 45 mg/dL (7-20) Creatinine 1.9 mg/dL (0.6-1.0) Estimated GFR (Cockcroft-Gault) 32.9 BUN/Creatinine Ratio 24 (6-20) Glucose Level 87 mg/dL (70-99) Calcium Level 9.5 mg/dL (8.5-10.1) Magnesium Level 2.5 mg/dL (1.8-2.4) Total Bilirubin 0.4 mg/dL (0.2-1.0) Aspartate Amino Transf (AST/SGOT) 20 U/L (15-37) Alanine Aminotransferase (ALT/SGPT) 7 U/L (14-59) Alkaline Phosphatase 76 U/L (46-116) Creatine Kinase 29 U/L (26-192) 27 U/L (26-192) Creatine Kinase MB (Mass) 0.7 ng/mL (0.0-3.6) 0.7 ng/mL (0.0-3.6) Creatine Kinase MB Relative Index 2.4 % (0-4) 2.6 % (0-4) Troponin I Quantitative 0.022 ng/mL (0.000-0.055) 0.017 ng/mL (0.000-0.055) 0.051 ng/mL (0.000-0.055) NU-Uzg-B-Type Natriuretic Peptide 8982 pg/mL (0-124) Total Protein 8.4 g/dL (6.4-8.2) Albumin 2.9 g/dL (3.4-5.0) Albumin/Globulin Ratio 0.5 (1.0-1.7) Test 06/06/19 10:00 06/06/19 14:00 Troponin I Quantitative 0.064 ng/mL (0.000-0.055) 0.039 ng/mL (0.000-0.055) Laboratory Tests Test 06/06/19 10:00 06/06/19 14:00 Troponin I Quantitative 0.064 ng/mL (0.000-0.055) 0.039 ng/mL (0.000-0.055) Medications Current Medications Hydralazine HCl (Apresoline Inj) 10 mg 1X ONCE IVP Last administered on 06/05/19at 18:30; Start 06/05/19 at 18:00; Stop 06/05/19 at 18:01; Status DC Labetalol HCl (Normodyne Iv Push) 20 mg 1X STAT IVP Last administered on 06/05/19at 19:20; Start 06/05/19 at 19:10; Stop 06/05/19 at 19:13; Status DC Ondansetron HCl (Zofran) 4 mg PRN Q8HRS PRN IV NAUSEA/VOMITING; Start 06/05/19 at 19:30; Stop 06/06/19 at 19:29; Status DC Fentanyl Citrate (Fentanyl 2ml Vial) 50 mcg PRN Q1HR PRN IV PAIN; Start 06/05/19 at 19:30; Stop 06/06/19 at 19:29; Status DC Labetalol HCl (Normodyne Iv Push) 20 mg PRN Q6HRS PRN IVP HYPERTENSION Last adm inistered on 06/07/19at 07:46; Start 06/05/19 at 19:30 Losartan Potassium (Cozaar) 100 mg 1X ONCE PO Last administered on 06/05/19at 21:38; Start 06/05/19 at 21:30; Stop 06/05/19 at 21:31; Status DC Nitroglycerin/ Dextrose 250 ml @ 0 mls/hr 1X ONCE IV Last administered on 06/05/19at 21:41; Start 06/05/19 at 21:30; Stop 06/05/19 at 21:31; Status DC Nitroglycerin/ Dextrose 250 ml @ 1.5 mls/hr CONT PRN IV SEE I/O RECORD; Start 06/05/19 at 22:30; Stop 06/06/19 at 02:17; Status DC Acetaminophen (Tylenol) 650 mg PRN Q4HRS PRN PO HEADACHE Last administered on 06/07/19at 00:30; Start 06/05/19 at 23:00 Hydrochlorothiazide (Hydrodiuril) 25 mg DAILY PO Last administered on 06/06/19at 09:14; Start 06/06/19 at 09:00 Metoprolol Succinate (Toprol Xl) 100 mg DAILY PO Last administered on 06/07/19at 08:55; Start 06/06/19 at 09:00 Losartan Potassium (Cozaar) 100 mg DAILY PO Last administered on 06/07/19at 08:55; Start 06/06/19 at 09:00 Nicardipine HCl 50 mg/Sodium Chloride 250 ml @ 25 mls/hr CONT PRN IV SEE I/O RECORD Last administered on 06/06/19at 02:15; Start 06/06/19 at 02:00 Albuterol Sulfate (Ventolin Neb Soln) 2.5 mg PRN Q6HRS PRN INH SHORTNESS OF BREATH; Start 06/06/19 at 15:15 Atorvastatin Calcium (Lipitor) 40 mg HS PO Last administered on 06/06/19at 21:40; Start 06/06/19 at 21:00 Calcium Acetate (Phoslo) 667 mg BIDWMEALS PO Last administered on 06/07/19at 08:55; Start 06/06/19 at 17:00 Furosemide (Lasix) 40 mg BID92 PO ; Start 06/06/19 at 15:45 Hydroxychloroquine Sulfate (Plaquenil) 200 mg DAILY PO ; Start 06/07/19 at 09:00 Pantoprazole Sodium (Protonix) 40 mg DAILYAC PO Last administered on 06/07/19at 07:45; Start 06/07/19 at 07:30 Rivaroxaban (Xarelto) 10 mg DAILY PO ; Start 06/07/19 at 09:00 Non-Formulary Medication (Budesonide/ Formoterol Fumarate (Symbicort 160-4.5 Mcg Inhaler)) 1 puff BID IH ; Start 06/06/19 at 21:00; Stop 06/06/19 at 15:27; Status DC Multivitamins (Thera M Plus) 1 tab DAILY PO ; Start 06/07/19 at 09:00 Potassium Chloride (Klor-Con) 20 meq DAILYWBKFT PO ; Start 06/07/19 at 08:00 Non-Formulary Medication (Tiotropium [place] (Spiriva)) 2 inh DAILY IH ; Start 06/07/19 at 09:00; Stop 06/06/19 at 15:28; Status DC Budesonide (Pulmicort) 0.5 mg RTBID NEB Last administered on 06/07/19at 07:11; Start 06/06/19 at 20:00 Albuterol Sulfate (Ventolin Neb Soln) 2.5 mg RTQID NEB ; Start 06/06/19 at 16:00; Stop 06/06/19 at 15:35; Status DC Albuterol/ Ipratropium (Duoneb) 3 ml RTQID NEB Last administered on 06/07/19at 07:11; Start 06/06/19 at 16:00 Isosorbide Mononitrate (Imdur) 60 mg DAILY PO Last administered on 06/07/19at 08:58; Start 06/07/19 at 09:00 Hydralazine HCl (Apresoline Inj) 10 mg 1X ONCE IVP Last administered on 06/07/19at 01:44; Start 06/07/19 at 02:00; Stop 06/07/19 at 02:01; Status DC Active Scripts Active Reported Hydrochlorothiazide Tablet (Hydrochlorothiazide) 25 Mg Tablet 25 Mg PO DAILY Protonix (Pantoprazole Sodium) 40 Mg Tablet.dr 40 Mg PO DAILYAC Losartan Potassium 100 Mg Tablet 100 Mg PO DAILY Hydroxychloroquine Sulfate 200 Mg Tablet 200 Mg PO DAILY Multivitamins (Multivitamin) 1 Each Tablet 1 Tab PO DAILY Metoprolol Succinate ( Xl ) (Metoprolol Succinate) 100 Mg Tab.er.24h 100 Mg PO DAILY Symbicort 160-4.5 Mcg Inhaler (Budesonide/Formoterol Fumarate) 10.2 Gm Hfa.aer.ad 1 Puff IH BID Spiriva (Tiotropium [place]) 18 Mcg Cap.w.dev 2 Inh IH DAILY Proair Hfa Inhaler (Albuterol Sulfate) 8.5 Gm Hfa.aer.ad 1 Puff INH PRN Q6HRS PRN Xarelto (Rivaroxaban) 10 Mg Tablet 10 Mg PO DAILY Atorvastatin Calcium 40 Mg Tablet 40 Mg PO HS Phoslo (Calcium Acetate) 667 Mg Capsule 1 Cap PO BIDWMEALS K-Tab ER (Potassium Chloride) 20 Meq Tablet.er 20 Meq PO DAILY Furosemide 40 Mg Tablet 40 Mg PO BID92 Vitals/I & O Vital Sign - Last 24 Hours 06/06/19 06/06/19 06/06/19 06/06/19 09:45 10:16 10:35 11:00 Temp 98.0 98.0 Pulse 70 66 66 68 Resp 18 B/P (MAP) 147/67 (93) 160/78 (105) 168/78 (108) 162/79 (106) Pulse Ox 96 O2 Delivery Room Air 06/06/19 06/06/19 06/06/19 06/06/19 11:05 11:35 12:05 12:35 Pulse 66 68 72 70 B/P (MAP) 160/77 (104) 159/77 (104) 178/83 (114) 184/89 (120) 06/06/19 06/06/19 06/06/19 06/06/19 12:47 14:39 15:00 15:08 Temp 97.7 97.7 Pulse 70 70 70 70 Resp 18 B/P (MAP) 168/80 (109) 182/83 (116) 182/83 (116) 182/83 Pulse Ox 97 O2 Delivery Room Air 06/06/19 06/06/19 06/06/19 06/06/19 16:02 16:06 19:17 20:00 Temp 98.4 98.4 Pulse 84 79 79 Resp 16 B/P (MAP) 166/83 (110) 166/83 (110) 171/91 (117) Pulse Ox 100 O2 Delivery Room Air Room Air 06/06/19 06/06/19 06/06/19 06/07/19 20:06 21:40 23:28 01:44 Temp 99.1 99.1 Pulse 79 80 74 Resp 14 B/P (MAP) 171/91 190/85 (120) 186/91 Pulse Ox 95 95 O2 Delivery Room Air 06/07/19 06/07/19 06/07/19 06/07/19 03:45 07:08 07:12 07:46 Temp 98.8 97.5 98.8 97.5 Pulse 84 75 75 Resp 18 18 B/P (MAP) 165/79 (107) 188/88 (121) 188/88 Pulse Ox 98 97 99 O2 Delivery Room Air Room Air Room Air 06/07/19 06/07/19 06/07/19 06/07/19 07:56 08:55 08:55 08:58 Pulse 85 85 85 B/P (MAP) 166/81 166/81 166/81 O2 Delivery Room Air Intake and Output 06/06/19 06/06/19 06/07/19 15:00 23:00 07:00 Intake Total 500 ml 400 ml 200 ml Output Total 600 ml Balance -100 ml 400 ml 200 ml LAMONT ZARATE MD Jun 07, 2019 09:18
[2019-06-07] MEDS ORDERED: IV 1/2 NORMAL SALINE 1,000 ML IV ONE (09:45)
[2019-06-07] MEDS ORDERED: IV 1/2 NORMAL SALINE 1,000 ML IV SCH (09:52)
--- NOTE | 2019-06-07 10:02 | PDOC ---
PROGRESS NOTES Subjective Subjective Denied any chest pain today Objective Objective Vital Signs Date Time Temp Pulse Resp B/P (MAP) Pulse Ox O2 Delivery O2 Flow Rate FiO2 06/07/19 08:58 85 166/81 06/07/19 07:56 Room Air 06/07/19 07:12 99 06/07/19 07:08 97.5 18 97.5 Intake and Output 06/07/19 07:00 Intake Total 1100 ml Output Total 600 ml Balance 500 ml Intake Oral 1100 ml Output Urine Total 600 ml # Voids 1 Physical Exam Abdomen: Normal bowel sounds, Soft Heart: Regular rate, Other (S4; FRANTZ 4/6 systolic murmur radiating to LLS border) Extremities: No cyanosis General: Alert, No acute distress HEENT: Atraumatic, Mucous membr. moist/pink Lungs: Clear to auscultation Neuro: Normal speech Psych/Mental Status: Mental status NL, Mood NL Skin: No breakdown, No significant lesion Assessment Assessment 1. Chest pain: suspect from uncontrolled HTN but also suspicious of occult ischemia based on EKG. One troponin level slightly elevated. Recent CT scan noted coronary artery calcifications. We will proceed with cardiac catheterization for definitive evaluation. Risks and benefits were explained and she is agreeable. 2. Acute on chronic diastolic CHF: mild, better compensated. Continue diuretics. 2-D echo showed normal LV systolic function. 3. Mild 4. PAFIB: Presently in sinus rhythm. Patient is on xarelto for stroke prophylaxis. 5. Hx of lupus/antiphospholipid antibody syndrome with past PE 6. Malignant HTN: Better controlled. Presently off Cardene and nitroglycerin infusions. Blood pressure still slightly elevated. Change beta blockers to labetalol for better control. 7. HLP: Statin therapy 8. Anemia of chronic disease with prior hx of thrombocytopenia and leukopenia: r/t past immunosuppresion 9. CKD3: Nephrology following 10. Hx of RA: currently just on plaquenil 11.. COPD/moderate pulmonary HTN: stable Plan Plan of Care Problems Medical Problems: (1) Acute exacerbation of CHF (congestive heart failure) Status: Acute (2) Chest pain Status: Acute (3) Hypertensive urgency Status: Acute Comment Review of Relevant I have reviewed the following items gregorio (where applicable) has been applied. Labs Laboratory Tests Test 06/06/19 10:00 06/06/19 14:00 Troponin I Quantitative 0.064 ng/mL (0.000-0.055) 0.039 ng/mL (0.000-0.055) Medications Current Medications Albuterol Sulfate (Ventolin Neb Soln) 2.5 mg PRN Q6HRS PRN INH SHORTNESS OF BREATH; Start 06/06/19 at 15:15 Albuterol Sulfate (Ventolin Neb Soln) 2.5 mg RTQID NEB ; Start 06/06/19 at 16:00; Stop 06/06/19 at 15:35; Status DC Albuterol/ Ipratropium (Duoneb) 3 ml RTQID NEB Last administered on 06/07/19at 07:11; Start 06/06/19 at 16:00 Atorvastatin Calcium (Lipitor) 40 mg HS PO Last administered on 06/06/19at 21:40; Start 06/06/19 at 21:00 Budesonide (Pulmicort) 0.5 mg RTBID NEB Last administered on 06/07/19at 07:11; Start 06/06/19 at 20:00 Calcium Acetate (Phoslo) 667 mg BIDWMEALS PO Last administered on 06/07/19at 08:55; Start 06/06/19 at 17:00 Furosemide (Lasix) 40 mg BID92 PO ; Start 06/06/19 at 15:45 Hydralazine HCl (Apresoline Inj) 10 mg 1X ONCE IVP Last administered on 06/07/19at 01:44; Start 06/07/19 at 02:00; Stop 06/07/19 at 02:01; Status DC Hydroxychloroquine Sulfate (Plaquenil) 200 mg DAILY PO ; Start 06/07/19 at 09:00 Isosorbide Mononitrate (Imdur) 60 mg DAILY PO Last administered on 06/07/19at 08:58; Start 06/07/19 at 09:00 Multivitamins (Thera M Plus) 1 tab DAILY PO ; Start 06/07/19 at 09:00 Non-Formulary Medication (Budesonide/ Formoterol Fumarate (Symbicort 160-4.5 Mcg Inhaler)) 1 puff BID IH ; Start 06/06/19 at 21:00; Stop 06/06/19 at 15:27; Status DC Non-Formulary Medication (Tiotropium [place] (Spiriva)) 2 inh DAILY IH ; Start 06/07/19 at 09:00; Stop 06/06/19 at 15:28; Status DC Pantoprazole Sodium (Protonix) 40 mg DAILYAC PO Last administered on 06/07/19at 07:45; Start 06/07/19 at 07:30 Potassium Chloride (Klor-Con) 20 meq DAILYWBKFT PO ; Start 06/07/19 at 08:00 Rivaroxaban (Xarelto) 10 mg DAILY PO ; Start 06/07/19 at 09:00 Sodium Chloride 1,000 ml @ 100 mls/hr Q10H IV ; Start 06/07/19 at 09:52; Stop 06/07/19 at 19:51 Sodium Chloride 1,000 ml @ 100 mls/hr Q10H ONCE IV Last administered on 06/07/19at 09:45; Start 06/07/19 at 09:45; Stop 06/07/19 at 09:55; Status DC Vitals/I & O Vital Sign - Last 24 Hours 06/06/19 06/06/19 06/06/19 06/06/19 10:16 10:35 11:00 11:05 Temp 98.0 98.0 Pulse 66 66 68 66 Resp 18 B/P (MAP) 160/78 (105) 168/78 (108) 162/79 (106) 160/77 (104) Pulse Ox 96 O2 Delivery Room Air 06/06/19 06/06/19 06/06/19 06/06/19 11:35 12:05 12:35 12:47 Pulse 68 72 70 70 B/P (MAP) 159/77 (104) 178/83 (114) 184/89 (120) 168/80 (109) 06/06/19 06/06/19 06/06/19 06/06/19 14:39 15:00 15:08 16:02 Temp 97.7 97.7 Pulse 70 70 70 84 Resp 18 B/P (MAP) 182/83 (116) 182/83 (116) 182/83 166/83 (110) Pulse Ox 97 O2 Delivery Room Air 06/06/19 06/06/19 06/06/19 06/06/19 16:06 19:17 20:00 20:06 Temp 98.4 98.4 Pulse 79 79 Resp 16 B/P (MAP) 166/83 (110) 171/91 (117) Pulse Ox 100 95 O2 Delivery Room Air Room Air 06/06/19 06/06/19 06/07/19 06/07/19 21:40 23:28 01:44 03:45 Temp 99.1 98.8 99.1 98.8 Pulse 79 80 74 84 Resp 14 18 B/P (MAP) 171/91 190/85 (120) 186/91 165/79 (107) Pulse Ox 95 98 O2 Delivery Room Air Room Air 06/07/19 06/07/19 06/07/19 06/07/19 07:08 07:12 07:46 07:56 Temp 97.5 97.5 Pulse 75 75 Resp 18 B/P (MAP) 188/88 (121) 188/88 Pulse Ox 97 99 O2 Delivery Room Air Room Air Room Air 06/07/19 06/07/19 06/07/19 08:55 08:55 08:58 Pulse 85 85 85 B/P (MAP) 166/81 166/81 166/81 Intake and Output 06/06/19 06/06/19 06/07/19 15:00 23:00 07:00 Intake Total 500 ml 400 ml 200 ml Output Total 600 ml Balance -100 ml 400 ml 200 ml BRENDA RAY MD Jun 07, 2019 10:01
[2019-06-07 10:39] LABS: CALCIUM 8.7 mg/dL (8.5-10.1); CREATININE 2.2 mg/dL (0.6-1.0); GFR 27.7; POTASSIUM 3.6 mmol/L (3.5-5.1)
[2019-06-07 10:45] LABS: ALBUMIN 2.4 g/dL (3.4-5.0); ALBUMIN/GLOBULIN RATIO 0.5 (1.0-1.7); TOTAL BILIRUBIN 0.3 mg/dL (0.2-1.0); TOTAL PROTEIN 7.5 g/dL (6.4-8.2)
[2019-06-07] MEDS: LABETALOL HCL 200 MG TABLET PO SCH ×2 (11:28→20:36)
[2019-06-07] MEDS ORDERED: amLODIPine BESYLATE 5 MG TABLET PO ONE (12:45)
--- NOTE | 2019-06-07 13:18 | PDOC ---
PROGRESS NOTES Assessment Assessment Hypertensive encephalopathy. Metabolic encephalopathy. Hypertensive emergency, DAVID 238/108-155 mmHg. Headaches. SOB. Palpitation. PAFib. Lupus? HLD. HTN, poorly controlled. COPD. Renal failure. Pulmonary infiltrate? RECOMMENDATIONS/PLAN: BP control. Treat medical diseases. She is treated with Xarelto per medical team. Continue Lipitor HS. HCT: no ICH. HISTORY OF PRESENT ILLNESS This is a a 58-year-old AA female with history of hypertension. She developed symptoms of chest pain, palpitation, SOB, headaches, confusion and was brought to the ER of [facility]. She has been noted with PAFIB. No associated nausea, vomiting. Neurology was requested for a consultation on 06/06/19. Patient stated her headaches resolved. No symptoms of LAUNDRY TECH lupus this time. 06/07/19: She stated doing better. PAST MEDICAL HISTORY Past Medical History Cardiovascular: AFIB, HTN, Hyperlipidemia, coronary calcifications Pulmonary: COPD, Pulmonary embolus CENTRAL NERVOUS SYSTEM: Other (No pertinent history) GI: GERD Heme/Onc: Anemia NOS, Other (antiphospholipid antibody syndrome; chronic immunosuppresion; pancytopenia) Musculoskeletal: Osteoarthritis Rheumatologic: Rheumatoid arthritis, Other (lupus, unknown type) Infectious disease: No pertinent hx ENT: Allergic Rhinitis Renal/: Chronic renal insuff (CKD3) Endocrine: thyroid nodules, thyromegaly Dermatology: No pertinent hx PAST SURGICAL HISTORY Liver biopsy FAMILY HISTORY Hypertension SOCIAL HISTORY Smoke: Quit ALCOHOL: none Drugs: None Lives: Alone ALLERGY: NKDA MEDICATIONS: Refer to MAR REVIEW OF SYSTEMS: Constitutional: No malnutrition, cachexia. Head: No recent traumatic brain or head injury. Skin: No edema, or rash. Ear: No infection. Eyes: No vision loss or color blindness. Nose: No bleeding or purulent discharges. Hearing: No hearing decrease. Neck: No injury. Breast: No history of cancer, masses,or discharges. Cardiac: PAFib, HTN, HLD. Pulmonary: COPD. GI: No GI ulcer, GI bleeding. Urinary/genital: UTI. Endocrinologic: No cousin face, craniofacial dysmorphism, polydactyly. Skeletomuscular: No muscular atrophy, deformity. Neurological: see HP. Psychiatric: Denies drug use/abuse. Otherwise, not [id number] review of systems. PHYSICAL EXAMINATION: General appearance is in no acute distress. HEENT: Normocephalic and nontraumatic. Eyes, nose, ears, and throat are unremarkable. Neck is supple. No lymphadenopathy. No crepitus. Cardiovascular: S1, S2. Pulmonary: Clear to auscultation bilaterally. Abdomen: Bowel sounds are positive. Abdomen is soft, nontender, and nondistended. Extremities: No rash, lesions, or edema. No restriction of range of motion NEUROLOGICAL EXAMINATION: Alert Oriented to time, place and person. PERRL. EOMI. CN: no focal findings. Muscle tone: within normal. Muscle strength: 5 DTR: 2 Plantar reflex: Flexor response bilaterally Gait: not examined in bed. Sensory exam: no abnormal findings. No cerebellar signs elicited. F-T-N test fine. Objective Objective Vital Signs Date Time Temp Pulse Resp B/P (MAP) Pulse Ox O2 Delivery O2 Flow Rate FiO2 06/07/19 12:49 71 207/107 06/07/19 11:18 Room Air 06/07/19 10:12 98.0 18 98 98.0 Intake and Output 06/07/19 07:00 Intake Total 1100 ml Output Total 600 ml Balance 500 ml Intake Oral 1100 ml Output Urine Total 600 ml # Voids 1 Vitals Signs Vitals VS - Last 72 Hours, by Label Date Time Temp Pulse Resp B/P (MAP) Pulse Ox O2 Delivery O2 Flow Rate FiO2 06/07/19 12:49 71 207/107 06/07/19 12:48 73 207/107 06/07/19 11:28 75 185/94 06/07/19 11:18 Room Air 06/07/19 10:48 75 185/94 (124) 06/07/19 10:12 98.0 75 18 200/101 (134) 98 Room Air 98.0 06/07/19 08:58 85 166/81 06/07/19 08:55 85 166/81 06/07/19 08:55 85 166/81 06/07/19 08:45 85 166/81 (109) 06/07/19 07:56 Room Air 06/07/19 07:46 75 188/88 06/07/19 07:12 99 Room Air 06/07/19 07:08 97.5 75 18 188/88 (121) 97 Room Air 97.5 06/07/19 03:45 98.8 84 18 165/79 (107) 98 Room Air 98.8 06/07/19 01:44 74 186/91 06/06/19 23:28 99.1 80 14 190/85 (120) 95 Room Air 99.1 06/06/19 21:40 79 171/91 06/06/19 20:06 95 06/06/19 20:00 Room Air 06/06/19 19:17 98.4 79 16 171/91 (117) 100 Room Air 98.4 06/06/19 16:06 79 166/83 (110) 06/06/19 16:02 84 166/83 (110) 06/06/19 15:08 70 182/83 06/06/19 15:00 97.7 70 18 182/83 (116) 97 Room Air 97.7 06/06/19 14:39 70 182/83 (116) 06/06/19 12:47 70 168/80 (109) 06/06/19 12:35 70 184/89 (120) 06/06/19 12:05 72 178/83 (114) 06/06/19 11:35 68 159/77 (104) 06/06/19 11:05 66 160/77 (104) 06/06/19 11:00 98.0 68 18 162/79 (106) 96 Room Air 98.0 06/06/19 10:35 66 168/78 (108) 06/06/19 10:16 66 160/78 (105) 06/06/19 09:45 70 147/67 (93) 06/06/19 09:15 70 149/78 06/06/19 09:14 69 149/78 06/06/19 08:45 76 149/78 (101) 06/06/19 08:00 Room Air 06/06/19 07:07 65 155/78 (103) 06/06/19 07:00 97.6 70 18 155/78 (103) 98 Room Air 97.6 Laboratory Laboratory Laboratory Tests Test 06/06/19 14:00 06/07/19 09:50 Troponin I Quantitative 0.039 ng/mL (0.000-0.055) Sodium Level 146 mmol/L (136-145) Potassium Level 3.6 mmol/L (3.5-5.1) Chloride Level 109 mmol/L (98-107) Carbon Dioxide Level 30 mmol/L (21-32) Anion Gap 7 (6-14) Blood Urea Nitrogen 48 mg/dL (7-20) Creatinine 2.2 mg/dL (0.6-1.0) Estimated GFR (Cockcroft-Gault) 27.7 BUN/Creatinine Ratio 22 (6-20) Glucose Level 105 mg/dL (70-99) Calcium Level 8.7 mg/dL (8.5-10.1) Total Bilirubin 0.3 mg/dL (0.2-1.0) Aspartate Amino Transf (AST/SGOT) 17 U/L (15-37) Alanine Aminotransferase (ALT/SGPT) 8 U/L (14-59) Alkaline Phosphatase 66 U/L (46-116) Total Protein 7.5 g/dL (6.4-8.2) Albumin 2.4 g/dL (3.4-5.0) Albumin/Globulin Ratio 0.5 (1.0-1.7) Medication Medications Current Medications Albuterol Sulfate (Ventolin Neb Soln) 2.5 mg PRN Q6HRS PRN INH SHORTNESS OF BREATH; Start 06/06/19 at 15:15 Albuterol Sulfate (Ventolin Neb Soln) 2.5 mg RTQID NEB ; Start 06/06/19 at 16:00; Stop 06/06/19 at 15:35; Status DC Albuterol/ Ipratropium (Duoneb) 3 ml RTQID NEB Last administered on 06/07/19at 11:18; Start 06/06/19 at 16:00 Amlodipine Besylate (Norvasc) 5 mg 1X ONCE PO Last administered on 06/07/19at 12:49; Start 06/07/19 at 12:45; Stop 06/07/19 at 12:46; Status DC Atorvastatin Calcium (Lipitor) 40 mg HS PO Last administered on 06/06/19at 21:40; Start 06/06/19 at 21:00 Budesonide (Pulmicort) 0.5 mg RTBID NEB Last administered on 06/07/19at 07:11; Start 06/06/19 at 20:00 Calcium Acetate (Phoslo) 667 mg BIDWMEALS PO Last administered on 06/07/19at 08:55; Start 06/06/19 at 17:00 Furosemide (Lasix) 40 mg BID92 PO ; Start 06/06/19 at 15:45 Hydralazine HCl (Apresoline Inj) 10 mg 1X ONCE IVP Last administered on 06/07/19at 01:44; Start 06/07/19 at 02:00; Stop 06/07/19 at 02:01; Status DC Hydralazine HCl (Apresoline Inj) 10 mg 1X ONCE IVP Last administered on 06/07/19at 12:48; Start 06/07/19 at 12:45; Stop 06/07/19 at 12:46; Status DC Hydroxychloroquine Sulfate (Plaquenil) 200 mg DAILY PO ; Start 06/07/19 at 09:00 Isosorbide Mononitrate (Imdur) 60 mg DAILY PO Last administered on 06/07/19at 08:58; Start 06/07/19 at 09:00 Labetalol HCl (Trandate) 200 mg BID PO Last administered on 06/07/19at 11:28; Start 06/07/19 at 10:15 Multivitamins (Thera M Plus) 1 tab DAILY PO ; Start 06/07/19 at 09:00 Non-Formulary Medication (Budesonide/ Formoterol Fumarate (Symbicort 160-4.5 Mcg Inhaler)) 1 puff BID IH ; Start 06/06/19 at 21:00; Stop 06/06/19 at 15:27; Status DC Non-Formulary Medication (Tiotropium [place] (Spiriva)) 2 inh DAILY IH ; Start 06/07/19 at 09:00; Stop 06/06/19 at 15:28; Status DC Pantoprazole Sodium (Protonix) 40 mg DAILYAC PO Last administered on 06/07/19at 07:45; Start 06/07/19 at 07:30 Potassium Chloride (Klor-Con) 20 meq DAILYWBKFT PO ; Start 06/07/19 at 08:00 Rivaroxaban (Xarelto) 10 mg DAILY PO ; Start 06/07/19 at 09:00 Sodium Chloride 1,000 ml @ 100 mls/hr Q10H IV Last administered on 06/07/19at 11:28; Start 06/07/19 at 09:52; Stop 06/07/19 at 19:51 Sodium Chloride 1,000 ml @ 100 mls/hr Q10H ONCE IV Last administered on 06/07/19at 09:45; Start 06/07/19 at 09:45; Stop 06/07/19 at 09:55; Status DC Comment Review of Relevant I have reviewed the following items gregorio (where applicable) has been applied. HAYLEY CLEMENT MD Jun 07, 2019 13:18
--- NOTE | 2019-06-07 13:50 | PDOC ---
SUBJECTIVE ROS Stable, No CP OBJECTIVE Vital Signs Vital Signs Date Time Temp Pulse Resp B/P (MAP) Pulse Ox O2 Delivery O2 Flow Rate FiO2 06/07/19 12:49 71 207/107 06/07/19 11:18 Room Air 06/07/19 10:12 98.0 18 98 98.0 I & 0 Intake and Output 06/07/19 07:00 Intake Total 1100 ml Output Total 600 ml Balance 500 ml Intake Oral 1100 ml Output Urine Total 600 ml # Voids 1 PHYSICAL EXAM Physical Exam General: No acute distress HEENT: Atraumatic, Mucous membr. moist/pink Neck Supple Lungs: Clear to auscultation, Non labored Heart: Regular rate, Normal S1, Normal S2, systolic murmur + Abdomen: Soft, No tenderness Extremities: No cyanosis, No edema Skin: No rash Neuro: Grossly normal Psych/Mental Status: Mental status NL, Mood NL No reid , No CVA or SP tenderness DIAGNOSIS/ASSESSMENT Assessment & Plan CKD stage 3-Follows with our office, seen by me in sep and most recent appt with [facility] in Apr Currently close to her baseline renal function Increased risk of ALIZA dw Pt , After weighing the risks and benefit per Card if she needs LHC- ALIZA with IVF, Hold Diuretics Atypical per cardiology Scheduled for cardiac Cath today 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 Baez as OP and was on Aranesp - none in past few months per patient COMMENT/RELEVANT DATA Meds Current Medications Medications (Trade) Dose Ordered Sig/Blaine Start Time Stop Time Status Last Admin Dose Admin Acetaminophen (Tylenol) 650 mg PRN Q4HRS PRN 06/05/19 23:00 06/07/19 00:30 650 MG Albuterol Sulfate (Ventolin Neb Soln) 2.5 mg RTQID 06/06/19 16:00 06/06/19 15:35 DC Albuterol/ Ipratropium (Duoneb) 3 ml RTQID 06/06/19 16:00 06/07/19 11:18 3 ML Amlodipine Besylate (Norvasc) 5 mg 1X ONCE 06/07/19 12:45 06/07/19 12:46 DC 06/07/19 12:49 5 MG Atorvastatin Calcium (Lipitor) 40 mg HS 06/06/19 21:00 06/06/19 21:40 40 MG Budesonide (Pulmicort) 0.5 mg RTBID 06/06/19 20:00 06/07/19 07:11 0.5 MG Calcium Acetate (Phoslo) 667 mg BIDWMEALS 06/06/19 17:00 06/07/19 08:55 667 MG Fentanyl Citrate (Fentanyl 2ml Vial) 50 mcg PRN Q1HR PRN 06/05/19 19:30 06/06/19 19:29 DC Furosemide (Lasix) 40 mg BID92 06/06/19 15:45 Hydralazine HCl (Apresoline Inj) 10 mg 1X ONCE 06/07/19 12:45 06/07/19 12:46 DC 06/07/19 12:48 10 MG Hydrochlorothiazide (Hydrodiuril) 25 mg DAILY 06/06/19 09:00 06/06/19 09:14 25 MG Hydroxychloroquine Sulfate (Plaquenil) 200 mg DAILY 06/07/19 09:00 Isosorbide Mononitrate (Imdur) 60 mg DAILY 06/07/19 09:00 06/07/19 08:58 60 MG Labetalol HCl (Normodyne Iv Push) 20 mg PRN Q6HRS PRN 06/05/19 19:30 06/07/19 07:46 20 MG Labetalol HCl (Trandate) 200 mg BID 06/07/19 10:15 06/07/19 11:28 200 MG Losartan Potassium (Cozaar) 100 mg DAILY 06/06/19 09:00 06/07/19 08:55 100 MG Metoprolol Succinate (Toprol Xl) 100 mg DAILY 06/06/19 09:00 06/07/19 10:04 DC 06/07/19 08:55 100 MG Multivitamins (Thera M Plus) 1 tab DAILY 06/07/19 09:00 Nicardipine HCl 50 mg/Sodium Chloride 250 ml @ 25 mls/hr CONT PRN 06/06/19 02:00 06/06/19 02:15 25 MLS/HR Nitroglycerin/ Dextrose 250 ml @ 1.5 mls/hr CONT PRN 06/05/19 22:30 06/06/19 02:17 DC Non-Formulary Medication (Budesonide/ Formoterol Fumarate (Symbicort 160-4.5 Mcg Inhaler)) 1 puff BID 06/06/19 21:00 06/06/19 15:27 DC Non-Formulary Medication (Tiotropium [place] (Spiriva)) 2 inh DAILY 06/07/19 09:00 06/06/19 15:28 DC Ondansetron HCl (Zofran) 4 mg PRN Q8HRS PRN 06/05/19 19:30 06/06/19 19:29 DC Pantoprazole Sodium (Protonix) 40 mg DAILYAC 06/07/19 07:30 06/07/19 07:45 40 MG Potassium Chloride (Klor-Con) 20 meq DAILYWBKFT 06/07/19 08:00 Rivaroxaban (Xarelto) 10 mg DAILY 06/07/19 09:00 Sodium Chloride 1,000 ml @ 100 mls/hr Q10H 06/07/19 09:52 06/07/19 19:51 06/07/19 11:28 100 MLS/HR Lab Laboratory Tests Test 06/06/19 14:00 06/07/19 09:50 Troponin I Quantitative 0.039 ng/mL (0.000-0.055) Sodium Level 146 mmol/L (136-145) Potassium Level 3.6 mmol/L (3.5-5.1) Chloride Level 109 mmol/L (98-107) Carbon Dioxide Level 30 mmol/L (21-32) Anion Gap 7 (6-14) Blood Urea Nitrogen 48 mg/dL (7-20) Creatinine 2.2 mg/dL (0.6-1.0) Estimated GFR (Cockcroft-Gault) 27.7 BUN/Creatinine Ratio 22 (6-20) Glucose Level 105 mg/dL (70-99) Calcium Level 8.7 mg/dL (8.5-10.1) Total Bilirubin 0.3 mg/dL (0.2-1.0) Aspartate Amino Transf (AST/SGOT) 17 U/L (15-37) Alanine Aminotransferase (ALT/SGPT) 8 U/L (14-59) Alkaline Phosphatase 66 U/L (46-116) Total Protein 7.5 g/dL (6.4-8.2) Albumin 2.4 g/dL (3.4-5.0) Albumin/Globulin Ratio 0.5 (1.0-1.7) Results All relevant outside records, renal labs, imaging studies, telemetry/EKG's were reviewed. SHEILA CREWS MD Jun 07, 2019 13:50
[2019-06-07] MEDS ORDERED: IODIXANOL 320 MG/ML 100 ML VIAL. ONE (15:05)
[2019-06-07] MEDS ORDERED: LIDOCAINE 1% PF 2 ML VIAL. ONE (15:06)
[2019-06-07] MEDS ORDERED: HEPARIN for IV BOLUS 10,000 UNIT/10 ML VIAL. ONE (15:36)
[2019-06-07] MEDS ORDERED: fentaNYL PF VIAL 100 MCG/2 ML VIAL ONE (15:36)
[2019-06-07] MEDS ORDERED: MIDAZOLAM HCL/PF 2 MG/2 ML VIAL. ONE (15:36)
[2019-06-07] MEDS ORDERED: VERAPAMIL 5 MG/2 ML VIAL. ONE (15:37)
[2019-06-07] MEDS ORDERED: NITROGLYCERIN 200 MCG/2 ML SYRINGE FOR CATH/VASC LAB. ONE (15:37)
[2019-06-07] MEDS ORDERED: hydrALAZINE 20 MG/ML VIAL. ONE (15:47)
[2019-06-07] MEDS ORDERED: HEPARIN for IV BOLUS 10,000 UNIT/10 ML VIAL. IART ONE (16:00)
[2019-06-07] MEDS ORDERED: LIDOCAINE 1% PF 2 ML VIAL. INJ ONE (16:00)
[2019-06-07] MEDS ORDERED: IODIXANOL 320 MG/ML 100 ML VIAL. IART ONE (16:00)
[2019-06-07] MEDS ORDERED: fentaNYL PF VIAL 100 MCG/2 ML VIAL IV ONE (16:00)
[2019-06-07] MEDS ORDERED: MIDAZOLAM HCL/PF 2 MG/2 ML VIAL. IV ONE (16:00)
[2019-06-07] MEDS ORDERED: NITROGLYCERIN 200 MCG/2 ML SYRINGE FOR CATH/VASC LAB. IART ONE (16:00)
[2019-06-07] MEDS ORDERED: VERAPAMIL 5 MG/2 ML VIAL. IART ONE (16:00)
[2019-06-07] MEDS ORDERED: CONTRAST GIVEN. MC PRN (16:00)
--- NOTE | 2019-06-07 16:04 | PDOC ---
MODERATE SEDATION ASSESSMENT RISKS/ALTERNATIVES Risks/Alternatives Risks and alternatives of this type of sedation and procedure discussed with: RISK/ALTERNATIVES: Patient H & P ON CHART H & P H & P on chart and reviewed for co-morbid conditions and appropriate labs. H&P ON CHART: Yes STATUS PREG STATUS ASSESSED: N/A MEDS/ALLERGIES REVIEWED Meds/Allergies Reviewed Medications and Allergies including time and route of recently administered narcotics and sedatives. MEDS/ALLERGIES REVIEWED: Yes ASA RATING ASA RATING: III AIRWAY ASSESSMENT Airway Assessment Airway patency, oral function limitations, presence of caps, crowns, dentures, partials, and ability to extend neck assessed. AIRWAY ASSESSMENT: Yes MALLAMPATI SCORE MALLAMPATI SCORE: II PRE-SEDATION ASSESSMENT PRE-SEDATION ASSESSMENT: Yes BRENDA RAY MD Jun 07, 2019 16:04
--- NOTE | 2019-06-07 16:13 | CARD ---
MR#: [id number] Date of Study: 06/07/2019 Ordering Physician: BRENDA MILLS, Referring Physician: BRENDA MILLS, Tech: RT Tia (R) LUIS MANUEL APPROVED REPORT Technologist: RT Tia (R) LUIS MANUEL Nurse: Lali Rosa R.N. Procedure(s) performed: Left heart catheterization, selective coronary angiography via right transrad ial approach Fluoro time: 2.4MIN Dose: 15 Gycm2 Contrast: 57ml Moderate Sedation: 14 min Class IV Heart Failure INDICATION The indication(s) include : unstable angina . CS Clinical Frailty Scale [facility] Clinical Frailty Scale: Mildly Frail Heart Failure Heart Failure: Yes If Yes, Newly Diagnosed: No If Yes, HF Type: Diastolic PROCEDURE NARRATIVE After explaining the risks, benefits and alternative options, informed consent was obtained from yadira ent. Patient was brought to the cardiac [employer] and right wrist was prepped and draped in the usual fashion after confirming a positive modified Patrick's test. Arterial access was obtained in the righ t radial artery and a 6 [place] sheath was inserted. 6 [place] Ben[place] catheter was used to perform staci ective angiography of the left and right coronary arteries. LVEDP and transaortic gradients remeasure d. Left ventriculography was not performed due to elevated creatinine level. Patient tolerated the p rocedure well. Hemostasis was achieved using TR band. There were no immediate complications. The f ollowing findings were noted. FINDINGS 1. Hemodynamics: Left ventricular end-diastolic pressure of 20 mmHg. No pullback gradient across th e aortic valve. 2. Coronary angiography: a. The left main coronary artery arose from the left sinus of Valsalva, gave rise to the left anteri or descending and left circumflex arteries and did not show any significant stenosis. b. The left anterior descending artery did not show any significant stenosis. c. The left circumflex artery did not show any significant stenosis. d. The right coronary artery was a large and dominant vessel arising from the right sinus of Valsalv a that did not show any significant stenosis. Conclusion No significant coronary artery disease Recommendations Medical Therapy Signed by : Brenda Mills, Electronically Approved : 06/07/2019 16:13:20
[2019-06-07] MEDS ORDERED: NITROGLYCERIN SUBLINGUAL 0.4 MG BOTTLE OF 25. SL PRN (16:15)
[2019-06-07] MEDS ORDERED: 0.9 % SODIUM CHLORIDE 10 ML DISP.SYRIN. IV PRN (16:15)
[2019-06-07] MEDS ORDERED: LABETALOL 20 MG/4 ML DISP.SYRIN. IVP ONE (17:17)
[2019-06-07] MEDS: MULTIVITAMIN with MINERAL TABLET. PO SCH (18:39)
[2019-06-07] MEDS: HYDROXYCHLOROQUINE 200 MG TABLET PO SCH (18:39)
[2019-06-07] MEDS: hydroCHLOROthiazide 25 MG TABLET PO SCH (18:39)
[2019-06-07] MEDS: hydrALAZINE 20 MG/ML VIAL. IVP PRN (19:46)
[2019-06-07] MEDS: ATORVASTATIN CALCIUM 40 MG TABLET. PO SCH (20:36)
[2019-06-08 03:10] VITALS: BP 142/66
[2019-06-08 05:51] LABS: CALCIUM 8.5 mg/dL (8.5-10.1); CREATININE 2.1 mg/dL (0.6-1.0); GFR 29.3; POTASSIUM 3.6 mmol/L (3.5-5.1)
[2019-06-08 07:00] VITALS: BP 185/95
[2019-06-08] MEDS: IPRATRPIUM/ALBUTEROL 0.5/2.5MG 3 ML NEBU. NEB SCH ×4 (07:24→20:17)
[2019-06-08] MEDS: BUDESONIDE 0.5 MG/2 ML NEBU. NEB SCH ×2 (07:28→20:17)
[2019-06-08] MEDS: LOSARTAN POTASSIUM 50 MG TABLET. PO SCH (08:54)
[2019-06-08] MEDS: RIVAROXABAN 10 MG TABLET. PO SCH (08:54)
[2019-06-08] MEDS: CALCIUM ACETATE 667 MG CAPSULE PO SCH ×2 (08:54→17:22)
[2019-06-08] MEDS: ISOSORBIDE MONONITRATE ER 30 MG TAB.ER.24H PO SCH (08:55)
[2019-06-08] MEDS: POTASSIUM CHLORIDE 20 MEQ TABLET.ER. PO SCH (08:55)
[2019-06-08] MEDS: MULTIVITAMIN with MINERAL TABLET. PO SCH (08:55)
[2019-06-08] MEDS: PANTOPRAZOLE 40 MG TABLET.DR. PO SCH (08:55)
[2019-06-08] MEDS: HYDROXYCHLOROQUINE 200 MG TABLET PO SCH (08:56)
[2019-06-08] MEDS: LABETALOL HCL 200 MG TABLET PO SCH ×2 (08:56→21:09)
--- NOTE | 2019-06-08 09:04 | PDOC ---
PROGRESS NOTES History of Present Illness History of Present Illness VTE Prophylaxis Ordered VTE Prophylaxis Devices: No VTE Pharmacological Prophylaxi: Yes Assessment/Plan Assessment/Plan Impression: 1. Hypertensive urgency 2. Chest pain 3. Acute exacerbation of CHF (congestive heart failure) 4. Coronary calcifications per recent CT. Will consult nephrology for renal optimization. May need LHC pending tests noted below. 5. headache Findings a small vessel ischemic change, technically age indeterminate without prior imaging for comparison. 6. Hx of lupus/antiphospholipid antibody syndrome with past PE 7. HYPERTENSIVE ENCEPHALOPATHY 8. CKD STAGE 3 No Doppler evidence of greater than 60% stenosis within the renal arteries.Echogenic renal parenchyma, a finding which can be seen with medical renal disease. 9. Small simple appearing renal cysts. PLAN ADMIT CVC BED CARDIOLOGY CONSULT serial troponin i Renal duplex. study NOTED TTE neurology consult NEPHROLOGY FOLLOWING CR NOT AT BASELINE 28 min time pt exam, chart review, > 50% of time spent with exam, chart review, pt care coordination Vitals Vitals Vital Signs Date Time Temp Pulse Resp B/P (MAP) Pulse Ox O2 Delivery O2 Flow Rate FiO2 06/08/19 08:56 79 185/95 06/08/19 07:28 99 Room Air 06/08/19 03:10 97.7 20 97.7 06/07/19 16:00 2.0 Physical Exam General: Alert, Oriented X3, Cooperative, No acute distress Heart: Regular rate, Other Lungs: Clear Abdomen: Normal bowel sounds, Soft, No tenderness, No hepatosplenomegaly Extremities: No cyanosis Skin: No breakdown, No significant lesion Labs LABS EXAM: Holm scale and color Doppler renal artery sonogram. HISTORY: Hypertension. TECHNIQUE: Holm scale and color Doppler sonographic imaging of the kidneys and renal arteries with spectral waveform analysis was performed. COMPARISON: None. FINDINGS: The right kidney measures 10.2 cm [id number] and the left kidney measures 9.6 cm [id number]. There are small cysts within the right kidney measuring 1.5 cm and 0.7 cm. There is a single cyst within the left kidney measuring 0.8 cm. The renal parenchyma is echogenic. There is no hydronephrosis. The bladder is unremarkable. The peak systolic velocity within the right renal artery is 122 cm/s. The peak systolic velocity within the left renal artery is 86 cm/s. There are normal renal artery to aorta velocity ratios. IMPRESSION: 1. No Doppler evidence of greater than 60% stenosis within the renal arteries. 2. Echogenic renal parenchyma, a finding which can be seen with medical renal disease. 3. Small simple appearing renal cysts. Electronically signed by: Zana Rodriguez MD (06/06/2019 3:41 PM) [facility] DICTATED and SIGNED BY: ZANA RODRIGUEZ MD DATE: 06/06/19 1541 APPROVED REPORT Technologist: Zehra Koehler, RT (R) Nurse: Lali Rosa R.N. Procedure(s) performed: Left heart catheterization, selective coronary angiography via right transradial approach Fluoro time: 2.4MIN Dose: 15 Gycm2 Contrast: 57ml Moderate Sedation: 14 min Class IV Heart Failure INDICATION The indication(s) include : unstable angina . [facility] Clinical Frailty Scale [facility] Clinical Frailty Scale: Mildly Frail Heart Failure Heart Failure: Yes If Yes, Newly Diagnosed: No If Yes, HF Type: Diastolic PROCEDURE NARRATIVE After explaining the risks, benefits and alternative options, informed consent was obtained from patient. Patient was brought to the cardiac Block Inspector and right wrist was prepped and draped in the usual fashion after confirming a posi tive modified Patrick's test. Arterial access was obtained in the right radial artery and a 6 Thai sheath was inserted. 6 Thai Beni catheter was used to perform selective angiography of the left and right coronary arteries. LVEDP and transaortic gradients remeasured. Left ventriculography was not performed due to elevated creatinine level. Patient tolerated the procedure well. Hemostasis was achieved using TR band. There were no immediate complications. The following findings were noted. FINDINGS 1. Hemodynamics: Left ventricular end-diastolic pressure of 20 mmHg. No pullback gradient across the aortic valve. 2. Coronary angiography: a. The left main coronary artery arose from the left sinus of Valsalva, gave rise to the left anterior descending and left circumflex arteries and did not show any significant stenosis. b. The left anterior descending artery did not show any significant stenosis. c. The left circumflex artery did not show any significant stenosis. d. The right coronary artery was a large and dominant vessel arising from the right sinus of Valsalva that did not show any significant stenosis. Conclusion No significant coronary artery disease Recommendations Medical Therapy Signed by : Jossue Mills, Electronically Approved : 06/07/2019 16:13:20 Laboratory Tests Test 06/07/19 09:50 06/08/19 04:30 Sodium Level 146 mmol/L (136-145) 145 mmol/L (136-145) Potassium Level 3.6 mmol/L (3.5-5.1) 3.6 mmol/L (3.5-5.1) Chloride Level 109 mmol/L (98-107) 109 mmol/L (98-107) Carbon Dioxide Level 30 mmol/L (21-32) 30 mmol/L (21-32) Anion Gap 7 (6-14) 6 (6-14) Blood Urea Nitrogen 48 mg/dL (7-20) 48 mg/dL (7-20) Creatinine 2.2 mg/dL (0.6-1.0) 2.1 mg/dL (0.6-1.0) Estimated GFR (Cockcroft-Gault) 27.7 29.3 BUN/Creatinine Ratio 22 (6-20) Glucose Level 105 mg/dL (70-99) 87 mg/dL (70-99) Calcium Level 8.7 mg/dL (8.5-10.1) 8.5 mg/dL (8.5-10.1) Total Bilirubin 0.3 mg/dL (0.2-1.0) Aspartate Amino Transf (AST/SGOT) 17 U/L (15-37) Alanine Aminotransferase (ALT/SGPT) 8 U/L (14-59) Alkaline Phosphatase 66 U/L (46-116) Total Protein 7.5 g/dL (6.4-8.2) Albumin 2.4 g/dL (3.4-5.0) Albumin/Globulin Ratio 0.5 (1.0-1.7) Assessment and Plan Assessmemt and Plan Problems Medical Problems: (1) Acute exacerbation of CHF (congestive heart failure) Status: Acute (2) Chest pain Status: Acute (3) Hypertensive urgency Status: Acute Comment Review of Relevant I have reviewed the following items gregorio (where applicable) has been applied. Labs Laboratory Tests Test 06/06/19 10:00 06/06/19 14:00 06/07/19 09:50 06/08/19 04:30 Troponin I Quantitative 0.064 ng/mL (0.000-0.055) 0.039 ng/mL (0.000-0.055) Sodium Level 146 mmol/L (136-145) 145 mmol/L (136-145) Potassium Level 3.6 mmol/L (3.5-5.1) 3.6 mmol/L (3.5-5.1) Chloride Level 109 mmol/L (98-107) 109 mmol/L (98-107) Carbon Dioxide Level 30 mmol/L (21-32) 30 mmol/L (21-32) Anion Gap 7 (6-14) 6 (6-14) Blood Urea Nitrogen 48 mg/dL (7-20) 48 mg/dL (7-20) Creatinine 2.2 mg/dL (0.6-1.0) 2.1 mg/dL (0.6-1.0) Estimated GFR (Cockcroft-Gault) 27.7 29.3 BUN/Creatinine Ratio 22 (6-20) Glucose Level 105 mg/dL (70-99) 87 mg/dL (70-99) Calcium Level 8.7 mg/dL (8.5-10.1) 8.5 mg/dL (8.5-10.1) Total Bilirubin 0.3 mg/dL (0.2-1.0) Aspartate Amino Transf (AST/SGOT) 17 U/L (15-37) Alanine Aminotransferase (ALT/SGPT) 8 U/L (14-59) Alkaline Phosphatase 66 U/L (46-116) Total Protein 7.5 g/dL (6.4-8.2) Albumin 2.4 g/dL (3.4-5.0) Albumin/Globulin Ratio 0.5 (1.0-1.7) Laboratory Tests Test 06/07/19 09:50 06/08/19 04:30 Sodium Level 146 mmol/L (136-145) 145 mmol/L (136-145) Potassium Level 3.6 mmol/L (3.5-5.1) 3.6 mmol/L (3.5-5.1) Chloride Level 109 mmol/L (98-107) 109 mmol/L (98-107) Carbon Dioxide Level 30 mmol/L (21-32) 30 mmol/L (21-32) Anion Gap 7 (6-14) 6 (6-14) Blood Urea Nitrogen 48 mg/dL (7-20) 48 mg/dL (7-20) Creatinine 2.2 mg/dL (0.6-1.0) 2.1 mg/dL (0.6-1.0) Estimated GFR (Cockcroft-Gault) 27.7 29.3 BUN/Creatinine Ratio 22 (6-20) Glucose Level 105 mg/dL (70-99) 87 mg/dL (70-99) Calcium Level 8.7 mg/dL (8.5-10.1) 8.5 mg/dL (8.5-10.1) Total Bilirubin 0.3 mg/dL (0.2-1.0) Aspartate Amino Transf (AST/SGOT) 17 U/L (15-37) Alanine Aminotransferase (ALT/SGPT) 8 U/L (14-59) Alkaline Phosphatase 66 U/L (46-116) Total Protein 7.5 g/dL (6.4-8.2) Albumin 2.4 g/dL (3.4-5.0) Albumin/Globulin Ratio 0.5 (1.0-1.7) Medications Current Medications Hydralazine HCl (Apresoline Inj) 10 mg 1X ONCE IVP Last administered on 06/05/19at 18:30; Start 06/05/19 at 18:00; Stop 06/05/19 at 18:01; Status DC Labetalol HCl (Normodyne Iv Push) 20 mg 1X STAT IVP Last administered on 06/05/19at 19:20; Start 06/05/19 at 19:10; Stop 06/05/19 at 19:13; Status DC Ondansetron HCl (Zofran) 4 mg PRN Q8HRS PRN IV NAUSEA/VOMITING; Start 06/05/19 at 19:30; Stop 06/06/19 at 19:29; Status DC Fentanyl Citrate (Fentanyl 2ml Vial) 50 mcg PRN Q1HR PRN IV PAIN; Start 06/05/19 at 19:30; Stop 06/06/19 at 19:29; Status DC Labetalol HCl (Normodyne Iv Push) 20 mg PRN Q6HRS PRN IVP HYPERTENSION Last administered on 06/07/19at 23:35; Start 06/05/19 at 19:30 Losartan Potassium (Cozaar) 100 mg 1X ONCE PO Last administered on 06/05/19at 21:38; Start 06/05/19 at 21:30; Stop 06/05/19 at 21:31; Status DC Nitroglycerin/ Dextrose 250 ml @ 0 mls/hr 1X ONCE IV Last administered on 06/05/19at 21:41; Start 06/05/19 at 21:30; Stop 06/05/19 at 21:31; Status DC Nitroglycerin/ Dextrose 250 ml @ 1.5 mls/hr CONT PRN IV SEE I/O RECORD; Start 06/05/19 at 22:30; Stop 06/06/19 at 02:17; Status DC Acetaminophen (Tylenol) 650 mg PRN Q4HRS PRN PO HEADACHE Last administered on 06/07/19at 18:41; Start 06/05/19 at 23:00 Hydrochlorothiazide (Hydrodiuril) 25 mg DAILY PO Last administered on 06/07/19at 18:39; Start 06/06/19 at 09:00 Metoprolol Succinate (Toprol Xl) 100 mg DAILY PO Last administered on 06/07/19at 08:55; Start 06/06/19 at 09:00; Stop 06/07/19 at 10:04; Status DC Losartan Potassium (Cozaar) 100 mg DAILY PO Last administered on 06/08/19at 0 8:54; Start 06/06/19 at 09:00 Nicardipine HCl 50 mg/Sodium Chloride 250 ml @ 25 mls/hr CONT PRN IV SEE I/O RECORD Last administered on 06/06/19at 02:15; Start 06/06/19 at 02:00 Albuterol Sulfate (Ventolin Neb Soln) 2.5 mg PRN Q6HRS PRN INH SHORTNESS OF BREATH; Start 06/06/19 at 15:15 Atorvastatin Calcium (Lipitor) 40 mg HS PO Last administered on 06/07/19at 20:36; Start 06/06/19 at 21:00 Calcium Acetate (Phoslo) 667 mg BIDWMEALS PO Last administered on 06/08/19at 08:54; Start 06/06/19 at 17:00 Furosemide (Lasix) 40 mg BID92 PO ; Start 06/06/19 at 15:45 Hydroxychloroquine Sulfate (Plaquenil) 200 mg DAILY PO Last administered on 06/08/19at 08:56; Start 06/07/19 at 09:00 Pantoprazole Sodium (Protonix) 40 mg DAILYAC PO Last administered on 06/08/19at 08:55; Start 06/07/19 at 07:30 Rivaroxaban (Xarelto) 10 mg DAILY PO Last administered on 06/08/19at 08:54; Start 06/07/19 at 09:00 Non-Formulary Medication (Budesonide/ Formoterol Fumarate (Symbicort 160-4.5 Mcg Inhaler)) 1 puff BID IH ; Start 06/06/19 at 21:00; Stop 06/06/19 at 15:27; Status DC Multivitamins (Thera M Plus) 1 tab DAILY PO Last administered on 06/08/19at 0 8:55; Start 06/07/19 at 09:00 Potassium Chloride (Klor-Con) 20 meq DAILYWBKFT PO Last administered on 06/08/19at 08:55; Start 06/07/19 at 08:00 Non-Formulary Medication (Tiotropium [place] (Spiriva)) 2 inh DAILY IH ; Start 06/07/19 at 09:00; Stop 06/06/19 at 15:28; Status DC Budesonide (Pulmicort) 0.5 mg RTBID NEB Last administered on 06/08/19at 07:28; Start 06/06/19 at 20:00 Albuterol Sulfate (Ventolin Neb Soln) 2.5 mg RTQID NEB ; Start 06/06/19 at 16:00; Stop 06/06/19 at 15:35; Status DC Albuterol/ Ipratropium (Duoneb) 3 ml RTQID NEB Last administered on 06/08/19at 07:24; Start 06/06/19 at 16:00 Isosorbide Mononitrate (Imdur) 60 mg DAILY PO Last administered on 06/08/19at 08:55; Start 06/07/19 at 09:00 Hydralazine HCl (Apresoline Inj) 10 mg 1X ONCE IVP Last administered on 06/07/19at 01:44; Start 06/07/19 at 02:00; Stop 06/07/19 at 02:01; Status DC Sodium Chloride 1,000 ml @ 100 mls/hr Q10H ONCE IV Last administered on 06/07/19at 09:45; Start 06/07/19 at 09:45; Stop 06/07/19 at 09:55; Status DC Sodium Chloride 1,000 ml @ 100 mls/hr Q10H IV Last administered on 06/07/19at 11:28; Start 06/07/19 at 09:52; Stop 06/07/19 at 19:51; Status DC Labetalol HCl (Trandate) 200 mg BID PO Last administered on 06/08/19at 08:56; Start 06/07/19 at 10:15 Hydralazine HCl (Apresoline Inj) 10 mg 1X ONCE IVP Last administered on 06/07/19at 12:48; Start 06/07/19 at 12:45; Stop 06/07/19 at 12:46; Status DC Amlodipine Besylate (Norvasc) 5 mg 1X ONCE PO Last administered on 06/07/19at 12:49; Start 06/07/19 at 12:45; Stop 06/07/19 at 12:46; Status DC Iodixanol (Visipaque 320) 100 ml STK-MED ONCE .ROUTE ; Start 06/07/19 at 15:05; Stop 06/07/19 at 15:06; Status DC Lidocaine HCl (Xylocaine-Mpf 1% 2ml Vial) 2 ml STK-MED ONCE .ROUTE ; Start 06/07/19 at 15:06; Stop 06/07/19 at 15:06; Status DC Heparin Sodium/ Sodium Chloride 500 ml @ As Directed STK-MED ONCE .ROUTE ; St art 06/07/19 at 15:06; Stop 06/07/19 at 15:06; Status DC Fentanyl Citrate (Fentanyl 2ml Vial) 100 mcg STK-MED ONCE .ROUTE ; Start 06/07/19 at 15:36; Stop 06/07/19 at 15:37; Status DC Midazolam HCl (Versed) 2 mg STK-MED ONCE .ROUTE ; Start 06/07/19 at 15:36; Stop 06/07/19 at 15:37; Status DC Heparin Sodium (Porcine) (Heparin Sodium) 10,000 unit STK-MED ONCE .ROUTE ; Start 06/07/19 at 15:36; Stop 06/07/19 at 15:37; Status DC Verapamil HCl (Verapamil) 5 mg STK-MED ONCE .ROUTE ; Start 06/07/19 at 15:37; Stop 06/07/19 at 15:37; Status DC Nitroglycerin (Nitroglycerin) 200 mcg STK-MED ONCE .ROUTE ; Start 06/07/19 at 15:37; Stop 06/07/19 at 15:37; Status DC Hydralazine HCl (Apresoline Inj) 20 mg STK-MED ONCE .ROUTE ; Start 06/07/19 at 15:47; Stop 06/07/19 at 15:48; Status DC Nitroglycerin (Nitroglycerin) 200 mcg 1X ONCE IART Last administered on 06/07/19at 16:00; Start 06/07/19 at 16:00; Stop 06/07/19 at 16:01; Status DC Verapamil HCl (Verapamil) 2.5 mg 1X ONCE IART Last administered on 06/07/19at 16:00; Start 06/07/19 at 16:00; Stop 06/07/19 at 16:01; Status DC Heparin Sodium (Porcine) (Heparin Sodium) 2,500 unit 1X ONCE IART Last administered on 06/07/19at 16:00; Start 06/07/19 at 16:00; Stop 06/07/19 at 16:01; Status DC Heparin Sodium/ Sodium Chloride (HEPARIN for ARTERIAL LINE FLUSH) 1,000 unit 1X ONCE IART Last administered on 06/07/19at 16:00; Start 06/07/19 at 16:00; Stop 06/07/19 at 16:01; Status DC Midazolam HCl (Versed) 2 mg 1X ONCE IV Last administered on 06/07/19at 16:00; Start 06/07/19 at 16:00; Stop 06/07/19 at 16:01; Status DC Fentanyl Citrate (Fentanyl 2ml Vial) 100 mcg 1X ONCE IV Last administered on 06/07/19at 16:00; Start 06/07/19 at 16:00; Stop 06/07/19 at 16:01; Status DC Iodixanol (Visipaque 320) 100 ml 1X ONCE IART Last administered on 06/07/19at 16:00; Start 06/07/19 at 16:00; Stop 06/07/19 at 16:01; Status DC Lidocaine HCl (Xylocaine-Mpf 1% 2ml Vial) 2 ml 1X ONCE INJ Last administered on 06/07/19at 16:00; Start 06/07/19 at 16:00; Stop 06/07/19 at 16:01; Status DC Hydralazine HCl (Apresoline Inj) 10 mg 1X ONCE IVP Last administered on 06/07/19at 16:00; Start 06/07/19 at 16:00; Stop 06/07/19 at 16:01; Status DC Info (CONTRAST GIVEN -- Rx MONITORING) 1 each PRN DAILY PRN MC SEE COMMENTS; Start 06/07/19 at 16:00; Stop 06/09/19 at 15:59 Sodium Chloride (Normal Saline Flush) 3 ml QSHIFT PRN IV AFTER MEDS AND BLOOD DRAWS; Start 06/07/19 at 16:15 Nitroglycerin (Nitrostat) 0.4 mg PRN Q5MIN PRN SL CHEST PAIN; Start 06/07/19 at 16:15 Labetalol HCl (Normodyne Iv Push) 20 mg STK-MED ONCE IVP ; Start 06/07/19 at 17:17; Stop 06/07/19 at 18:23; Status DC Hydralazine HCl (Apresoline Inj) 10 mg PRN Q4HRS PRN IVP ELEVATED BP, SEE COMMENTS Last administered on 06/07/19at 19:46; Start 06/07/19 at 19:00 Clonidine HCl (Catapres Tts-2) 1 patch WEEKLY TD ; Start 06/14/19 at 09:00 Active Scripts Active Reported Hydrochlorothiazide Tablet (Hydrochlorothiazide) 25 Mg Tablet 25 Mg PO DAILY Protonix (Pantoprazole Sodium) 40 Mg Tablet.dr 40 Mg PO DAILYAC Losartan Potassium 100 Mg Tablet 100 Mg PO DAILY Hydroxychloroquine Sulfate 200 Mg Tablet 200 Mg PO DAILY Multivitamins (Multivitamin) 1 Each Tablet 1 Tab PO DAILY Metoprolol Succinate ( Xl ) (Metoprolol Succinate) 100 Mg Tab.er.24h 100 Mg PO DAILY Symbicort 160-4.5 Mcg Inhaler (Budesonide/Formoterol Fumarate) 10.2 Gm Hfa.aer.ad 1 Puff IH BID Spiriva (Tiotropium [place]) 18 Mcg Cap.w.dev 2 Inh IH DAILY Proair Hfa Inhaler (Albuterol Sulfate) 8.5 Gm Hfa.aer.ad 1 Puff INH PRN Q6HRS PRN Xarelto (Rivaroxaban) 10 Mg Tablet 10 Mg PO DAILY Atorvastatin Calcium 40 Mg Tablet 40 Mg PO HS Phoslo (Calcium Acetate) 667 Mg Capsule 1 Cap PO BIDWMEALS K-Tab ER (Potassium Chloride) 20 Meq Tablet.er 20 Meq PO DAILY Furosemide 40 Mg Tablet 40 Mg PO BID92 Vitals/I & O Vital Sign - Last 24 Hours 06/07/19 06/07/19 06/07/19 06/07/19 10:12 10:48 11:18 11:28 Temp 98.0 98.0 Pulse 75 75 75 Resp 18 B/P (MAP) 200/101 (134) 185/94 (124) 185/94 Pulse Ox 98 O2 Delivery Room Air Room Air 06/07/19 06/07/19 06/07/19 06/07/19 12:48 12:49 15:00 16:00 Temp 97.9 97.9 Pulse 73 71 78 69 Resp 18 B/P (MAP) 207/107 207/107 176/88 (117) 223/111 Pulse Ox 97 O2 Delivery Room Air 06/07/19 06/07/19 06/07/19 06/07/19 16:00 16:00 16:04 16:26 Pulse 69 69 66 Resp 20 20 B/P (MAP) 223/111 177/90 (119) Pulse Ox 100 100 O2 Delivery Nasal Cannula Room Air O2 Flow Rate 2.0 06/07/19 06/07/19 06/07/19 06/07/19 16:38 16:41 16:56 17:11 Pulse 66 68 70 B/P (MAP) 178/94 (122) 181/101 (127) 184/97 (126) Pulse Ox 100 O2 Delivery Room Air 06/07/19 06/07/19 06/07/19 06/07/19 17:17 17:41 18:11 19:05 Temp 97.4 97.4 Pulse 70 68 72 68 Resp 18 B/P (MAP) 181/101 177/94 (121) 207/98 (134) 208/87 (127) Pulse Ox 100 O2 Delivery Room Air 06/07/19 06/07/19 06/07/19 06/07/19 19:11 19:45 19:46 20:36 Pulse 68 66 69 B/P (MAP) 200/87 (124) 177/93 177/93 O2 Delivery Room Air 06/07/19 06/07/19 06/07/19 06/08/19 20:40 23:00 23:35 03:10 Temp 97.7 97.7 97.7 97.7 Pulse 70 72 79 Resp 21 20 B/P (MAP) 175/80 (111) 175/80 142/66 (91) Pulse Ox 99 100 100 O2 Delivery Room Air Room Air Room Air 06/08/19 06/08/19 06/08/19 06/08/19 07:28 08:54 08:55 08:56 Pulse 79 79 79 B/P (MAP) 185/95 185/95 185/95 Pulse Ox 99 O2 Delivery Room Air Intake and Output 06/07/19 06/07/19 06/08/19 15:00 23:00 07:00 Intake Total 120 ml 1030 ml 0 ml Balance 120 ml 1030 ml 0 ml LAMONT ZARATE MD Jun 08, 2019 09:04
[2019-06-08] MEDS: FUROSEMIDE 40 MG TABLET. PO SCH ×2 (10:57→15:17)
[2019-06-08] MEDS: hydroCHLOROthiazide 25 MG TABLET PO SCH (10:57)
[2019-06-08 11:00] VITALS: BP 183/87
[2019-06-08] MEDS: hydrALAZINE 20 MG/ML VIAL. IVP PRN ×2 (11:00→15:20)
--- NOTE | 2019-06-08 11:47 | PDOC ---
PROGRESS NOTES Subjective Subjective Denied any chest pain or shortness of breath Objective Objective Vital Signs Date Time Temp Pulse Resp B/P (MAP) Pulse Ox O2 Delivery O2 Flow Rate FiO2 06/08/19 11:15 Room Air 06/08/19 11:00 76 172/95 06/08/19 07:28 99 06/08/19 07:00 97.6 20 97.6 06/07/19 16:00 2.0 Intake and Output 06/08/19 07:00 Intake Total 1150 ml Balance 1150 ml Intake Oral 240 ml IV Total 910 ml # Voids 1 Physical Exam Abdomen: Normal bowel sounds, Soft, No tenderness Heart: Regular rate, Other Extremities: No cyanosis General: Alert, No acute distress HEENT: Atraumatic, Mucous membr. moist/pink Lungs: Clear to auscultation Neuro: Normal speech Psych/Mental Status: Mental status NL, Mood NL Skin: No breakdown, No significant lesion Assessment Assessment 1. Chest pain: Most probably secondary to uncontrolled hypertension. Cardiac catheterization yesterday did not show any significant coronary artery disease. 2. Acute on chronic diastolic CHF: better compensated. Continue diuretics. 2-D echo showed normal LV systolic function. 3. Mild 4. PAFIB: Presently in sinus rhythm. Patient is on xarelto for stroke prophylaxis. 5. Hx of lupus/antiphospholipid antibody syndrome with past PE 6. Malignant HTN: Better controlled but still slightly elevated despite changes in anti-hypertensive regimen. Start Norvasc 5 mg daily. 7. HLP: Statin therapy 8. Anemia of chronic disease with prior hx of thrombocytopenia and leukopenia: r/t past immunosuppresion 9. CKD3: Nephrology following 10. Hx of RA: currently just on plaquenil 11.. COPD/moderate pulmonary HTN: stable Plan Plan of Care Problems Medical Problems: (1) Acute exacerbation of CHF (congestive heart failure) Status: Acute (2) Chest pain Status: Acute (3) Hypertensive urgency Status: Acute Comment Review of Relevant I have reviewed the following items gregorio (where applicable) has been applied. Labs Laboratory Tests Test 06/08/19 04:30 Sodium Level 145 mmol/L (136-145) Potassium Level 3.6 mmol/L (3.5-5.1) Chloride Level 109 mmol/L (98-107) Carbon Dioxide Level 30 mmol/L (21-32) Anion Gap 6 (6-14) Blood Urea Nitrogen 48 mg/dL (7-20) Creatinine 2.1 mg/dL (0.6-1.0) Estimated GFR (Cockcroft-Gault) 29.3 Glucose Level 87 mg/dL (70-99) Calcium Level 8.5 mg/dL (8.5-10.1) Medications Current Medications Amlodipine Besylate (Norvasc) 5 mg 1X ONCE PO Last administered on 06/07/19at 12:49; Start 06/07/19 at 12:45; Stop 06/07/19 at 12:46; Status DC Clonidine HCl (Catapres Tts-2) 1 patch WEEKLY TD ; Start 06/14/19 at 09:00 Fentanyl Citrate (Fentanyl 2ml Vial) 100 mcg 1X ONCE IV Last administered on 06/07/19at 16:00; Start 06/07/19 at 16:00; Stop 06/07/19 at 16:01; Status DC Fentanyl Citrate (Fentanyl 2ml Vial) 100 mcg STK-MED ONCE .ROUTE ; Start 06/07/19 at 15:36; Stop 06/07/19 at 15:37; Status DC Heparin Sodium (Porcine) (Heparin Sodium) 2,500 unit 1X ONCE IART Last administered on 06/07/19at 16:00; Start 06/07/19 at 16:00; Stop 06/07/19 at 16:01; Status DC Heparin Sodium (Porcine) (Heparin Sodium) 10,000 unit STK-MED ONCE .ROUTE ; Start 06/07/19 at 15:36; Stop 06/07/19 at 15:37; Status DC Heparin Sodium/ Sodium Chloride 500 ml @ As Directed STK-MED ONCE .ROUTE ; Start 06/07/19 at 15:06; Stop 06/07/19 at 15:06; Status DC Heparin Sodium/ Sodium Chloride (HEPARIN for ARTERIAL LINE FLUSH) 1,000 unit 1X ONCE IART Last administered on 06/07/19at 16:00; Start 06/07/19 at 16:00; Stop 06/07/19 at 16:01; Status DC Hydralazine HCl (Apresoline Inj) 10 mg 1X ONCE IVP Last administered on 06/07/19at 12:48; Start 06/07/19 at 12:45; Stop 06/07/19 at 12:46; Status DC Hydralazine HCl (Apresoline Inj) 10 mg 1X ONCE IVP Last administered on 06/07/19at 16:00; Start 06/07/19 at 16:00; Stop 06/07/19 at 16:01; Status DC Hydralazine HCl (Apresoline Inj) 10 mg PRN Q4HRS PRN IVP ELEVATED BP, SEE COMMENTS Last administered on 06/08/19at 11:00; Start 06/07/19 at 19:00 Hydralazine HCl (Apresoline Inj) 20 mg STK-MED ONCE .ROUTE ; Start 06/07/19 at 15:47; Stop 06/07/19 at 15:48; Status DC Info (CONTRAST GIVEN -- Rx MONITORING) 1 each PRN DAILY PRN MC SEE COMMENTS; Start 06/07/19 at 16:00; Stop 06/09/19 at 15:59 Iodixanol (Visipaque 320) 100 ml 1X ONCE IART Last administered on 06/07/19at 16:00; Start 06/07/19 at 16:00; Stop 06/07/19 at 16:01; Status DC Iodixanol (Visipaque 320) 100 ml STK-MED ONCE .ROUTE ; Start 06/07/19 at 15:05; Stop 06/07/19 at 15:06; Status DC Labetalol HCl (Normodyne Iv Push) 20 mg STK-MED ONCE IVP ; Start 06/07/19 at 17:17; Stop 06/07/19 at 18:23; Status DC Lidocaine HCl (Xylocaine-Mpf 1% 2ml Vial) 2 ml 1X ONCE INJ Last administered on 06/07/19at 16:00; Start 06/07/19 at 16:00; Stop 06/07/19 at 16:01; Status DC Lidocaine HCl (Xylocaine-Mpf 1% 2ml Vial) 2 ml STK-MED ONCE .ROUTE ; Start 06/07/19 at 15:06; Stop 06/07/19 at 15:06; Status DC Midazolam HCl (Versed) 2 mg 1X ONCE IV Last administered on 06/07/19at 16:00; Start 06/07/19 at 16:00; Stop 06/07/19 at 16:01; Status DC Midazolam HCl (Versed) 2 mg STK-MED ONCE .ROUTE ; Start 06/07/19 at 15:36; Stop 06/07/19 at 15:37; Status DC Nitroglycerin (Nitroglycerin) 200 mcg 1X ONCE IART Last administered on 06/07/19at 16:00; Start 06/07/19 at 16:00; Stop 06/07/19 at 16:01; Status DC Nitroglycerin (Nitroglycerin) 200 mcg STK-MED ONCE .ROUTE ; Start 06/07/19 at 15:37; Stop 06/07/19 at 15:37; Status DC Nitroglycerin (Nitrostat) 0.4 mg PRN Q5MIN PRN SL CHEST PAIN; Start 06/07/19 at 16:15 Sodium Chloride (Normal Saline Flush) 3 ml QSHIFT PRN IV AFTER MEDS AND BLOOD DRAWS; Start 06/07/19 at 16:15 Verapamil HCl (Verapamil) 2.5 mg 1X ONCE IART Last administered on 06/07/19at 16:00; Start 06/07/19 at 16:00; Stop 06/07/19 at 16:01; Status DC Verapamil HCl (Verapamil) 5 mg STK-MED ONCE .ROUTE ; Start 06/07/19 at 15:37; Stop 06/07/19 at 15:37; Status DC Vitals/I & O Vital Sign - Last 24 Hours 06/07/19 06/07/19 06/07/19 06/07/19 12:48 12:49 15:00 16:00 Temp 97.9 97.9 Pulse 73 71 78 69 Resp 18 B/P (MAP) 207/107 207/107 176/88 (117) 223/111 Pulse Ox 97 O2 Delivery Room Air 06/07/19 06/07/19 06/07/19 06/07/19 16:00 16:00 16:04 16:26 Pulse 69 69 66 Resp 20 20 B/P (MAP) 223/111 177/90 (119) Pulse Ox 100 100 O2 Delivery Nasal Cannula Room Air O2 Flow Rate 2.0 06/07/19 06/07/19 06/07/19 06/07/19 16:38 16:41 16:56 17:11 Pulse 66 68 70 B/P (MAP) 178/94 (122) 181/101 (127) 184/97 (126) Pulse Ox 100 O2 Delivery Room Air 10/25/19 06/07/19 06/07/19 06/07/19 17:17 17:41 18:11 19:05 Temp 97.4 97.4 Pulse 70 68 72 68 Resp 18 B/P (MAP) 181/101 177/94 (121) 207/98 (134) 208/87 (127) Pulse Ox 100 O2 Delivery Room Air 06/07/19 06/07/19 06/07/19 06/07/19 19:11 19:45 19:46 20:36 Pulse 68 66 69 B/P (MAP) 200/87 (124) 177/93 177/93 O2 Delivery Room Air 06/07/19 06/07/19 06/07/19 06/08/19 20:40 23:00 23:35 03:10 Temp 97.7 97.7 97.7 97.7 Pulse 70 72 79 Resp 21 20 B/P (MAP) 175/80 (111) 175/80 142/66 (91) Pulse Ox 99 100 100 O2 Delivery Room Air Room Air Room Air 06/08/19 06/08/19 06/08/19 06/08/19 07:00 07:28 08:00 08:54 Temp 97.6 97.6 Pulse 76 79 Resp 20 B/P (MAP) 185/95 (125) 185/95 Pulse Ox 98 99 O2 Delivery Room Air Room Air Room Air 06/08/19 06/08/19 06/08/19 06/08/19 08:55 08:56 11:00 11:15 Pulse 79 79 76 B/P (MAP) 185/95 185/95 172/95 O2 Delivery Room Air Intake and Output 0 06/07/19 06/07/19 06/08/19 15:00 23:00 07:00 Intake Total 120 ml 1030 ml 0 ml Balance 120 ml 1030 ml 0 ml BRENDA RAY MD Jun 08, 2019 11:47
--- NOTE | 2019-06-08 13:15 | PDOC ---
PROGRESS NOTES Subjective Subjective SEEN IN FOLLOW UP OF CKD3 Objective Objective Vital Signs Date Time Temp Pulse Resp B/P (MAP) Pulse Ox O2 Delivery O2 Flow Rate FiO2 06/08/19 11:15 Room Air 06/08/19 11:00 97.5 73 20 183/87 (119) 97 97.5 06/07/19 16:00 2.0 Intake and Output 06/08/19 07:00 Intake Total 1150 ml Balance 1150 ml Intake Oral 240 ml IV Total 910 ml # Voids 1 Physical Exam Abdomen: Normal bowel sounds, Soft, No tenderness, No hepatosplenomegaly, No masses Heart: Regular rate, Normal S1, Normal S2, No murmurs, Gallops Extremities: No clubbing, No cyanosis, No edema, Normal pulses, No tenderness/swelling General: Alert, Oriented X3, Cooperative, No acute distress Lungs: Clear to auscultation, Normal air movement Psych/Mental Status: Mental status NL, Mood NL Diagnosis RENAL FAILURE: Chronic (CKD stage III) Assessment Assessment Problems Medical Problems: (1) Acute exacerbation of CHF (congestive heart failure) Status: Acute (2) Chest pain Status: Acute (3) Hypertensive urgency Status: Acute Plan Plan of Care RENAL FUNCTION NOT YET AT BASELINE. BASELINE CREAT 1.7-1.8. CONT TO FOLLOW . IF CARDIAC CATH THEN WILL NEED IVF PREHYDRATION. Comment Review of Relevant I have reviewed the following items gregorio (where applicable) has been applied. Labs Laboratory Tests Test 06/06/19 14:00 06/07/19 09:50 06/08/19 04:30 Troponin I Quantitative 0.039 ng/mL (0.000-0.055) Sodium Level 146 mmol/L (136-145) 145 mmol/L (136-145) Potassium Level 3.6 mmol/L (3.5-5.1) 3.6 mmol/L (3.5-5.1) Chloride Level 109 mmol/L (98-107) 109 mmol/L (98-107) Carbon Dioxide Level 30 mmol/L (21-32) 30 mmol/L (21-32) Anion Gap 7 (6-14) 6 (6-14) Blood Urea Nitrogen 48 mg/dL (7-20) 48 mg/dL (7-20) Creatinine 2.2 mg/dL (0.6-1.0) 2.1 mg/dL (0.6-1.0) Estimated GFR (Cockcroft-Gault) 27.7 29.3 BUN/Creatinine Ratio 22 (6-20) Glucose Level 105 mg/dL (70-99) 87 mg/dL (70-99) Calcium Level 8.7 mg/dL (8.5-10.1) 8.5 mg/dL (8.5-10.1) Total Bilirubin 0.3 mg/dL (0.2-1.0) Aspartate Amino Transf (AST/SGOT) 17 U/L (15-37) Alanine Aminotransferase (ALT/SGPT) 8 U/L (14-59) Alkaline Phosphatase 66 U/L (46-116) Total Protein 7.5 g/dL (6.4-8.2) Albumin 2.4 g/dL (3.4-5.0) Albumin/Globulin Ratio 0.5 (1.0-1.7) Laboratory Tests Test 06/08/19 04:30 Sodium Level 145 mmol/L (136-145) Potassium Level 3.6 mmol/L (3.5-5.1) Chloride Level 109 mmol/L (98-107) Carbon Dioxide Level 30 mmol/L (21-32) Anion Gap 6 (6-14) Blood Urea Nitrogen 48 mg/dL (7-20) Creatinine 2.1 mg/dL (0.6-1.0) Estimated GFR (Cockcroft-Gault) 29.3 Glucose Level 87 mg/dL (70-99) Calcium Level 8.5 mg/dL (8.5-10.1) Medications Current Medications Hydralazine HCl (Apresoline Inj) 10 mg 1X ONCE IVP Last administered on 06/05/19at 18:30; Start 06/05/19 at 18:00; Stop 06/05/19 at 18:01; Status DC Labetalol HCl (Normodyne Iv Push) 20 mg 1X STAT IVP Last administered on 06/05/19at 19:20; Start 06/05/19 at 19:10; Stop 06/05/19 at 19:13; Status DC Ondansetron HCl (Zofran) 4 mg PRN Q8HRS PRN IV NAUSEA/VOMITING; Start 06/05/19 at 19:30; Stop 06/06/19 at 19:29; Status DC Fentanyl Citrate (Fentanyl 2ml Vial) 50 mcg PRN Q1HR PRN IV PAIN; Start 06/05/19 at 19:30; Stop 06/06/19 at 19:29; Status DC Labetalol HCl (Normodyne Iv Push) 20 mg PRN Q6HRS PRN IVP HYPERTENSION Last administered on 06/07/19at 23:35; Start 06/05/19 at 19:30 Losartan Potassium (Cozaar) 100 mg 1X ONCE PO Last administered on 06/05/19at 21:38; Start 06/05/19 at 21:30; Stop 06/05/19 at 21:31; Status DC Nitroglycerin/ Dextrose 250 ml @ 0 mls/hr 1X ONCE IV Last administered on 06/05/19at 21:41; Start 06/05/19 at 21:30; Stop 06/05/19 at 21:31; Status DC Nitroglycerin/ Dextrose 250 ml @ 1.5 mls/hr CONT PRN IV SEE I/O RECORD; Start 06/05/19 at 22:30; Stop 06/06/19 at 02:17; Status DC Acetaminophen (Tylenol) 650 mg PRN Q4HRS PRN PO HEADACHE Last administered on 06/07/19at 18:41; Start 06/05/19 at 23:00 Hydrochlorothiazide (Hydrodiuril) 25 mg DAILY PO Last administered on 06/08/19at 10:57; Start 06/06/19 at 09:00 Metoprolol Succinate (Toprol Xl) 100 mg DAILY PO Last administered on 06/07/19at 08:55; Start 06/06/19 at 09:00; Stop 06/07/19 at 10:04; Status DC Losartan Potassium (Cozaar) 100 mg DAILY PO Last administered on 06/08/19at 08:54; Start 06/06/19 at 09:00 Nicardipine HCl 50 mg/Sodium Chloride 250 ml @ 25 mls/hr CONT PRN IV SEE I/O RECORD Last administered on 06/06/19at 02:15; Start 06/06/19 at 02:00 Albuterol Sulfate (Ventolin Neb Soln) 2.5 mg PRN Q6HRS PRN INH SHORTNESS OF BREATH; Start 06/06/19 at 15:15 Atorvastatin Calcium (Lipitor) 40 mg HS PO Last administered on 06/07/19 20:36; Start 06/06/19 at 21:00 Calcium Acetate (Phoslo) 667 mg BIDWMEALS PO Last administered on 06/08/19 08:54; Start 06/06/19 at 17:00 Furosemide (Lasix) 40 mg BID92 PO Last administered on 06/08/19 10:57; Start 06/06/19 at 15:45 Hydroxychloroquine Sulfate (Plaquenil) 200 mg DAILY PO Last administered on 06/08/19 08:56; Start 06/07/19 at 09:00 Pantoprazole Sodium (Protonix) 40 mg DAILYAC PO Last administered on 06/08/19 08:55; Start 06/07/19 at 07:30 Rivaroxaban (Xarelto) 10 mg DAILY PO Last administered on 06/08/19 08:54; Start 06/07/19 at 09:00 Non-Formulary Medication (Budesonide/ Formoterol Fumarate (Symbicort 160-4.5 Mcg Inhaler)) 1 puff BID IH ; Start 06/06/19 at 21:00; Stop 06/06/19 at 15:27; Status DC Multivitamins (Thera M Plus) 1 tab DAILY PO Last administered on 06/08/19 08:55; Start 06/07/19 at 09:00 Potassium Chloride (Klor-Con) 20 meq DAILYWBKFT PO Last administered on 06/08/19at 08:55; Start 06/07/19 at 08:00 Non-Formulary Medication (Tiotropium [place] (Spiriva)) 2 inh DAILY IH ; Start 06/07/19 at 09:00; Stop 06/06/19 at 15:28; Status DC Budesonide (Pulmicort) 0.5 mg RTBID NEB Last administered on 06/08/19 07:28; Start 06/06/19 at 20:00 Albuterol Sulfate (Ventolin Neb Soln) 2.5 mg RTQID NEB ; Start 06/06/19 at 16:00; Stop 06/06/19 at 15:35; Status DC Albuterol/ Ipratropium (Duoneb) 3 ml RTQID NEB Last administered on 06/08/19at 11:14; Start 06/06/19 at 16:00 Isosorbide Mononitrate (Imdur) 60 mg DAILY PO Last administered on 06/08/19at 08:55; Start 06/07/19 at 09:00 Hydralazine HCl (Apresoline Inj) 10 mg 1X ONCE IVP Last administered on at 01:44; Start 06/07/19 at 02:00; Stop 06/07/19 at 02:01; Status DC Sodium Chloride 1,000 ml @ 100 mls/hr Q10H ONCE IV Last administered on 06/07/19at 09:45; Start 06/07/19 at 09:45; Stop 06/07/19 at 09:55; Status DC Sodium Chloride 1,000 ml @ 100 mls/hr Q10H IV Last administered on 06/07/19at 11:28; Start 06/07/19 at 09:52; Stop 06/07/19 at 19:51; Status DC Labetalol HCl (Trandate) 200 mg BID PO Last administered on 06/08/19at 08:56; Start 06/07/19 at 10:15 Hydralazine HCl (Apresoline Inj) 10 mg 1X ONCE IVP Last administered on 06/07/19at 12:48; Start 06/07/19 at 12:45; Stop 06/07/19 at 12:46; Status DC Amlodipine Besylate (Norvasc) 5 mg 1X ONCE PO Last administered on 06/07/19at 12:49; Start 06/07/19 at 12:45; Stop 06/07/19 at 12:46; Status DC Iodixanol (Visipaque 320) 100 ml STK-MED ONCE .ROUTE ; Start 06/07/19 at 15:05; Stop 06/07/19 at 15:06; Status DC Lidocaine HCl (Xylocaine-Mpf 1% 2ml Vial) 2 ml STK-MED ONCE .ROUTE ; Start 06/07/19 at 15:06; Stop 06/07/19 at 15:06; Status DC Heparin Sodium/ Sodium Chloride 500 ml @ As Directed STK-MED ONCE .ROUTE ; Start 06/07/19 at 15:06; Stop 06/07/19 at 15:06; Status DC Fentanyl Citrate (Fentanyl 2ml Vial) 100 mcg STK-MED ONCE .ROUTE ; Start 06/07/19 at 15:36; Stop 06/07/19 at 15:37; Status DC Midazolam HCl (Versed) 2 mg STK-MED ONCE .ROUTE ; Start 06/07/19 at 15:36; Stop 06/07/19 at 15:37; Status DC Heparin Sodium (Porcine) (Heparin Sodium) 10,000 unit STK-MED ONCE .ROUTE ; Start 06/07/19 at 15:36; Stop 06/07/19 at 15:37; Status DC Verapamil HCl (Verapamil) 5 mg STK-MED ONCE .ROUTE ; Start 06/07/19 at 15:37; Stop 06/07/19 at 15:37; Status DC Nitroglycerin (Nitroglycerin) 200 mcg STK-MED ONCE .ROUTE ; Start 06/07/19 at 15:37; Stop 06/07/19 at 15:37; Status DC Hydralazine HCl (Apresoline Inj) 20 mg STK-MED ONCE .ROUTE ; Start 06/07/19 at 15:47; Stop 06/07/19 at 15:48; Status DC Nitroglycerin (Nitroglycerin) 200 mcg 1X ONCE IART Last administered on 06/07/19at 16:00; Start 06/07/19 at 16:00; Stop 06/07/19 at 16:01; Status DC Verapamil HCl (Verapamil) 2.5 mg 1X ONCE IART Last administered on 06/07/19at 16:00; Start 06/07/19 at 16:00; Stop 06/07/19 at 16:01; Status DC Heparin Sodium (Porcine) (Heparin Sodium) 2,500 unit 1X ONCE IART Last administered on 06/07/19at 16:00; Start 06/07/19 at 16:00; Stop 06/07/19 at 16:01; Status DC Heparin Sodium/ Sodium Chloride (HEPARIN for ARTERIAL LINE FLUSH) 1,000 unit 1X ONCE IART Last administered on 06/07/19at 16:00; Start 06/07/19 at 16:00; Stop 06/07/19 at 16:01; Status DC Midazolam HCl (Versed) 2 mg 1X ONCE IV Last administered on 06/07/19at 16:00; Start 06/07/19 at 16:00; Stop 06/07/19 at 16:01; Status DC Fentanyl Citrate (Fentanyl 2ml Vial) 100 mcg 1X ONCE IV Last administered on 06/07/19at 16:00; Start 06/07/19 at 16:00; Stop 06/07/19 at 16:01; Status DC Iodixanol (Visipaque 320) 100 ml 1X ONCE IART Last administered on 06/07/19at 16:00; Start 06/07/19 at 16:00; Stop 06/07/19 at 16:01; Status DC Lidocaine HCl (Xylocaine-Mpf 1% 2ml Vial) 2 ml 1X ONCE INJ Last administered on 06/07/19at 16:00; Start 06/07/19 at 16:00; Stop 06/07/19 at 16:01; Status DC Hydralazine HCl (Apresoline Inj) 10 mg 1X ONCE IVP Last administered on 06/07/19at 16:00; Start 06/07/19 at 16:00; Stop 06/07/19 at 16:01; Status DC Info (CONTRAST GIVEN -- Rx MONITORING) 1 each PRN DAILY PRN MC SEE COMMENTS; Start 06/07/19 at 16:00; Stop 06/09/19 at 15:59 Sodium Chloride (Normal Saline Flush) 3 ml QSHIFT PRN IV AFTER MEDS AND BLOOD DRAWS; Start 06/07/19 at 16:15 Nitroglycerin (Nitrostat) 0.4 mg PRN Q5MIN PRN SL CHEST PAIN; Start 06/07/19 at 16:15 Labetalol HCl (Normodyne Iv Push) 20 mg STK-MED ONCE IVP ; Start 06/07/19 at 17:17; Stop 06/07/19 at 18:23; Status DC Hydralazine HCl (Apresoline Inj) 10 mg PRN Q4HRS PRN IVP ELEVATED BP, SEE COMMENTS Last administered on 06/08/19at 11:00; Start 06/07/19 at 19:00 Clonidine HCl (Catapres Tts-2) 1 patch WEEKLY TD ; Start 06/14/19 at 09:00 Active Scripts Active Reported Hydrochlorothiazide Tablet (Hydrochlorothiazide) 25 Mg Tablet 25 Mg PO DAILY Protonix (Pantoprazole Sodium) 40 Mg Tablet.dr 40 Mg PO DAILYAC Losartan Potassium 100 Mg Tablet 100 Mg PO DAILY Hydroxychloroquine Sulfate 200 Mg Tablet 200 Mg PO DAILY Multivitamins (Multivitamin) 1 Each Tablet 1 Tab PO DAILY Metoprolol Succinate ( Xl ) (Metoprolol Succinate) 100 Mg Tab.er.24h 100 Mg PO DAILY Symbicort 160-4.5 Mcg Inhaler (Budesonide/Formoterol Fumarate) 10.2 Gm Hfa.aer.ad 1 Puff IH BID Spiriva (Tiotropium [place]) 18 Mcg Cap.w.dev 2 Inh IH DAILY Proair Hfa Inhaler (Albuterol Sulfate) 8.5 Gm Hfa.aer.ad 1 Puff INH PRN Q6HRS PRN Xarelto (Rivaroxaban) 10 Mg Tablet 10 Mg PO DAILY Atorvastatin Calcium 40 Mg Tablet 40 Mg PO HS Phoslo (Calcium Acetate) 667 Mg Capsule 1 Cap PO BIDWMEALS K-Tab ER (Potassium Chloride) 20 Meq Tablet.er 20 Meq PO DAILY Furosemide 40 Mg Tablet 40 Mg PO [id number] Vitals/I & O Vital Sign - Last 24 Hours 06/07/19 06/07/19 06/07/19 06/07/19 15:00 16:00 16:00 16:00 Temp 97.9 97.9 Pulse 78 69 69 Resp 18 20 B/P (MAP) 176/88 (117) 223/111 223/111 Pulse Ox 97 100 O2 Delivery Room Air Nasal Cannula O2 Flow Rate 2.0 06/07/19 06/07/19 06/07/19 06/07/19 16:04 16:26 16:38 16:41 Pulse 69 66 66 Resp 20 B/P (MAP) 177/90 (119) 178/94 (122) Pulse Ox 100 100 O2 Delivery Room Air Room Air 06/07/19 06/07/19 06/07/19 06/07/19 16:56 17:11 17:17 17:41 Pulse 68 70 70 68 B/P (MAP) 181/101 (127) 184/97 (126) 181/101 177/94 (121) 06/07/19 06/07/19 06/07/19 06/07/19 18:11 19:05 19:11 19:45 Temp 97.4 97.4 Pulse 72 68 68 Resp 18 B/P (MAP) 207/98 (134) 208/87 (127) 200/87 (124) Pulse Ox 100 O2 Delivery Room Air Room Air 1006/07/19 06/07/19 06/07/19 19:46 20:36 20:40 23:00 Temp 97.7 97.7 Pulse 66 69 70 Resp 21 B/P (MAP) 177/93 177/93 175/80 (111) Pulse Ox 99 100 O2 Delivery Room Air Room Air 06/07/19 06/08/19 06/08/19 06/08/19 23:35 03:10 07:00 07:28 Temp 97.7 97.6 97.7 97.6 Pulse 72 79 76 Resp 20 20 B/P (MAP) 175/80 142/66 (91) 185/95 (125) Pulse Ox 100 98 99 O2 Delivery Room Air Room Air Room Air 06/08/19 06/08/19 06/08/19 06/08/19 08:00 08:54 08:55 08:56 Pulse 79 79 79 B/P (MAP) 185/95 185/95 185/95 O2 Delivery Room Air 06/08/19 06/08/19 06/08/19 11:00 11:00 11:15 Temp 97.5 97.5 Pulse 76 73 Resp 20 B/P (MAP) 172/95 183/87 (119) Pulse Ox 97 O2 Delivery Room Air Room Air Intake and Output 06/07/19 06/07/19 06/08/19 15:00 23:00 07:00 Intake Total 120 ml 1030 ml 0 ml Balance 120 ml 1030 ml 0 ml STEPHANIA NICHOLAS MD Jun 08, 2019 13:15
[2019-06-08 15:00] VITALS: BP 152/72
[2019-06-08] MEDS: amLODIPine BESYLATE 10 MG TABLET PO SCH (15:20)
[2019-06-08 19:15] VITALS: BP 149/89
[2019-06-08] MEDS: ATORVASTATIN CALCIUM 40 MG TABLET. PO SCH (21:09)
[2019-06-08 23:09] VITALS: BP 155/88
[2019-06-09] VITALS (7 sets, daily range): BP systolic 118–169; BP diastolic 62–94
[2019-06-09] MEDS: BUDESONIDE 0.5 MG/2 ML NEBU. NEB SCH ×2 (07:27→19:23)
[2019-06-09] MEDS: IPRATRPIUM/ALBUTEROL 0.5/2.5MG 3 ML NEBU. NEB SCH ×4 (07:27→19:23)
[2019-06-09 07:54] LABS: BASO % 1 % (0-3); EOS # 0.1 x10^3/uL (0.0-0.7); EOS % 2 % (0-3); HEMATOCRIT 25.1 % (36.0-47.0); HEMOGLOBIN 8.3 g/dL (12.0-15.5); LYMPH # 1.1 x10^3/uL (1.0-4.8); LYMPH % 18 % (24-48); MEAN CORPUSCULAR HEMOGLOBIN 31 pg (25-35); MEAN CORPUSCULAR HGB CONC 33 g/dL (31-37); MEAN CORPUSCULAR VOLUME 93 fL (79-100); MONO # 0.5 x10^3/uL (0.0-1.1); MONO % 9 % (0-9); NEUT # 4.2 x10^3/uL (1.8-7.7); NEUT % 70 % (31-73); PLATELET COUNT 153 x10^3/uL (140-400); RED BLOOD COUNT 2.72 x10^6/uL (3.50-5.40); RED CELL DISTRIBUTION WIDTH 16.9 % (11.5-14.5); WHITE BLOOD COUNT 5.9 x10^3/uL (4.0-11.0)
[2019-06-09 08:27] LABS: ALBUMIN 2.4 g/dL (3.4-5.0); CALCIUM 8.7 mg/dL (8.5-10.1); CREATININE 2.4 mg/dL (0.6-1.0); GFR 25.1; PHOSPHORUS 3.6 mg/dL (2.6-4.7); POTASSIUM 4.1 mmol/L (3.5-5.1)
[2019-06-09] MEDS: FUROSEMIDE 40 MG TABLET. PO SCH (09:00)
[2019-06-09] MEDS: PANTOPRAZOLE 40 MG TABLET.DR. PO SCH (09:09)
[2019-06-09] MEDS: CALCIUM ACETATE 667 MG CAPSULE PO SCH ×2 (09:09→17:09)
[2019-06-09] MEDS: LABETALOL HCL 200 MG TABLET PO SCH ×2 (09:10→21:49)
[2019-06-09] MEDS: POTASSIUM CHLORIDE 20 MEQ TABLET.ER. PO SCH (09:10)
[2019-06-09] MEDS: LOSARTAN POTASSIUM 50 MG TABLET. PO SCH (09:11)
[2019-06-09] MEDS: amLODIPine BESYLATE 10 MG TABLET PO SCH (09:11)
[2019-06-09] MEDS: MULTIVITAMIN with MINERAL TABLET. PO SCH (09:11)
[2019-06-09] MEDS: RIVAROXABAN 10 MG TABLET. PO SCH (09:11)
--- NOTE | 2019-06-09 11:02 | PDOC ---
PROGRESS NOTES History of Present Illness History of Present Illness VTE Prophylaxis Ordered VTE Prophylaxis Devices: No VTE Pharmacological Prophylaxi: Yes Assessment/Plan Assessment/Plan Impression: 1. Hypertensive urgency 2. Chest pain, resolved 3. Acute exacerbation of CHF (congestive heart failure) 4. Coronary calcifications per recent CT. Will consult nephrology for renal optimization. May need C pending tests noted below. 5. headache Findings a small vessel ischemic change, technically age indeterminate without prior imaging for comparison. 6. Hx of lupus/antiphospholipid antibody syndrome with past PE 7. HYPERTENSIVE ENCEPHALOPATHY 8. CKD STAGE 3 No Doppler evidence of greater than 60% stenosis within the renal arteries.Echogenic renal parenchyma, a finding which can be seen with medical renal disease.cr not at goal 9. Small simple appearing renal cysts. PLAN ADMIT CVC BED CARDIOLOGY CONSULT serial troponin i Renal duplex. study NOTED TTE neurology consult NEPHROLOGY FOLLOWING CR NOT AT BASELINE 29 min time pt exam, chart review, > 50% of time spent with exam, chart review, pt care coordination Vitals Vitals Vital Signs Date Time Temp Pulse Resp B/P (MAP) Pulse Ox O2 Delivery O2 Flow Rate FiO2 06/09/19 09:11 83 169/89 06/09/19 08:00 Room Air 2.0 06/09/19 07:27 99 06/09/19 07:00 97.9 18 97.9 Physical Exam General: Alert, Oriented X3, Cooperative, No acute distress Heart: Regular rate, Normal S1, Normal S2, No murmurs, Gallops Lungs: Clear Abdomen: Normal bowel sounds, Soft, No tenderness, No hepatosplenomegaly Extremities: No clubbing, No cyanosis, No edema, Normal pulses, No tenderness/swelling Skin: No breakdown, No significant lesion Labs LABS Laboratory Tests Test 06/09/19 05:59 White Blood Count 5.9 x10^3/uL (4.0-11.0) Red Blood Count 2.72 x10^6/uL (3.50-5.40) Hemoglobin 8.3 g/dL (12.0-15.5) Hematocrit 25.1 % (36.0-47.0) Mean Corpuscular Volume 93 fL (79-100) Mean Corpuscular Hemoglobin 31 pg (25-35) Mean Corpuscular Hemoglobin Concent 33 g/dL (31-37) Red Cell Distribution Width 16.9 % (11.5-14.5) Platelet Count 153 x10^3/uL (140-400) Neutrophils (%) (Auto) 70 % (31-73) Lymphocytes (%) (Auto) 18 % (24-48) Monocytes (%) (Auto) 9 % (0-9) Eosinophils (%) (Auto) 2 % (0-3) Basophils (%) (Auto) 1 % (0-3) Neutrophils # (Auto) 4.2 x10^3/uL (1.8-7.7) Lymphocytes # (Auto) 1.1 x10^3/uL (1.0-4.8) Monocytes # (Auto) 0.5 x10^3/uL (0.0-1.1) Eosinophils # (Auto) 0.1 x10^3/uL (0.0-0.7) Basophils # (Auto) 0.0 x10^3/uL (0.0-0.2) Sodium Level 144 mmol/L (136-145) Potassium Level 4.1 mmol/L (3.5-5.1) Chloride Level 109 mmol/L (98-107) Carbon Dioxide Level 27 mmol/L (21-32) Anion Gap 8 (6-14) Blood Urea Nitrogen 54 mg/dL (7-20) Creatinine 2.4 mg/dL (0.6-1.0) Estimated GFR (Cockcroft-Gault) 25.1 Glucose Level 77 mg/dL (70-99) Calcium Level 8.7 mg/dL (8.5-10.1) Phosphorus Level 3.6 mg/dL (2.6-4.7) Albumin 2.4 g/dL (3.4-5.0) Assessment and Plan Assessmemt and Plan Problems Medical Problems: (1) Acute exacerbation of CHF (congestive heart failure) Status: Acute (2) Chest pain Status: Acute (3) Hypertensive urgency Status: Acute Comment Review of Relevant I have reviewed the following items gregorio (where applicable) has been applied. Labs Laboratory Tests Test 06/08/19 04:30 06/09/19 05:59 Sodium Level 145 mmol/L (136-145) 144 mmol/L (136-145) Potassium Level 3.6 mmol/L (3.5-5.1) 4.1 mmol/L (3.5-5.1) Chloride Level 109 mmol/L (98-107) 109 mmol/L (98-107) Carbon Dioxide Level 30 mmol/L (21-32) 27 mmol/L (21-32) Anion Gap 6 (6-14) 8 (6-14) Blood Urea Nitrogen 48 mg/dL (7-20) 54 mg/dL (7-20) Creatinine 2.1 mg/dL (0.6-1.0) 2.4 mg/dL (0.6-1.0) Estimated GFR (Cockcroft-Gault) 29.3 25.1 Glucose Level 87 mg/dL (70-99) 77 mg/dL (70-99) Calcium Level 8.5 mg/dL (8.5-10.1) 8.7 mg/dL (8.5-10.1) White Blood Count 5.9 x10^3/uL (4.0-11.0) Red Blood Count 2.72 x10^6/uL (3.50-5.40) Hemoglobin 8.3 g/dL (12.0-15.5) Hematocrit 25.1 % (36.0-47.0) Mean Corpuscular Volume 93 fL (79-100) Mean Corpuscular Hemoglobin 31 pg (25-35) Mean Corpuscular Hemoglobin Concent 33 g/dL (31-37) Red Cell Distribution Width 16.9 % (11.5-14.5) Platelet Count 153 x10^3/uL (140-400) Neutrophils (%) (Auto) 70 % (31-73) Lymphocytes (%) (Auto) 18 % (24-48) Monocytes (%) (Auto) 9 % (0-9) Eosinophils (%) (Auto) 2 % (0-3) Basophils (%) (Auto) 1 % (0-3) Neutrophils # (Auto) 4.2 x10^3/uL (1.8-7.7) Lymphocytes # (Auto) 1.1 x10^3/uL (1.0-4.8) Monocytes # (Auto) 0.5 x10^3/uL (0.0-1.1) Eosinophils # (Auto) 0.1 x10^3/uL (0.0-0.7) Basophils # (Auto) 0.0 x10^3/uL (0.0-0.2) Phosphorus Level 3.6 mg/dL (2.6-4.7) Albumin 2.4 g/dL (3.4-5.0) Laboratory Tests Test 06/09/19 05:59 White Blood Count 5.9 x10^3/uL (4.0-11.0) Red Blood Count 2.72 x10^6/uL (3.50-5.40) Hemoglobin 8.3 g/dL (12.0-15.5) Hematocrit 25.1 % (36.0-47.0) Mean Corpuscular Volume 93 fL (79-100) Mean Corpuscular Hemoglobin 31 pg (25-35) Mean Corpuscular Hemoglobin Concent 33 g/dL (31-37) Red Cell Distribution Width 16.9 % (11.5-14.5) Platelet Count 153 x10^3/uL (140-400) Neutrophils (%) (Auto) 70 % (31-73) Lymphocytes (%) (Auto) 18 % (24-48) Monocytes (%) (Auto) 9 % (0-9) Eosinophils (%) (Auto) 2 % (0-3) Basophils (%) (Auto) 1 % (0-3) Neutrophils # (Auto) 4.2 x10^3/uL (1.8-7.7) Lymphocytes # (Auto) 1.1 x10^3/uL (1.0-4.8) Monocytes # (Auto) 0.5 x10^3/uL (0.0-1.1) Eosinophils # (Auto) 0.1 x10^3/uL (0.0-0.7) Basophils # (Auto) 0.0 x10^3/uL (0.0-0.2) Sodium Level 144 mmol/L (136-145) Potassium Level 4.1 mmol/L (3.5-5.1) Chloride Level 109 mmol/L (98-107) Carbon Dioxide Level 27 mmol/L (21-32) Anion Gap 8 (6-14) Blood Urea Nitrogen 54 mg/dL (7-20) Creatinine 2.4 mg/dL (0.6-1.0) Estimated GFR (Cockcroft-Gault) 25.1 Glucose Level 77 mg/dL (70-99) Calcium Level 8.7 mg/dL (8.5-10.1) Phosphorus Level 3.6 mg/dL (2.6-4.7) Albumin 2.4 g/dL (3.4-5.0) Medications Current Medications Hydralazine HCl (Apresoline Inj) 10 mg 1X ONCE IVP Last administered on 06/05/19at 18:30; Start 06/05/19 at 18:00; Stop 06/05/19 at 18:01; Status DC Labetalol HCl (Normodyne Iv Push) 20 mg 1X STAT IVP Last administered on 06/05/19at 19:20; Start 06/05/19 at 19:10; Stop 06/05/19 at 19:13; Status DC Ondansetron HCl (Zofran) 4 mg PRN Q8HRS PRN IV NAUSEA/VOMITING; Start 06/05/19 at 19:30; Stop 06/06/19 at 19:29; Status DC Fentanyl Citrate (Fentanyl 2ml Vial) 50 mcg PRN Q1HR PRN IV PAIN; Start 06/05/19 at 19:30; Stop 06/06/19 at 19:29; Status DC Labetalol HCl (Normodyne Iv Push) 20 mg PRN Q6HRS PRN IVP HYPERTENSION Last administered on 06/07/19at 23:35; Start 06/05/19 at 19:30 Losartan Potassium (Cozaar) 100 mg 1X ONCE PO Last administered on 06/05/19at 21:38; Start 06/05/19 at 21:30; Stop 06/05/19 at 21:31; Status DC Nitroglycerin/ Dextrose 250 ml @ 0 mls/hr 1X ONCE IV Last administered on 06/05/19at 21:41; Start 06/05/19 at 21:30; Stop 06/05/19 at 21:31; Status DC Nitroglycerin/ Dextrose 250 ml @ 1.5 mls/hr CONT PRN IV SEE I/O RECORD; Start 06/05/19 at 22:30; Stop 06/06/19 at 02:17; Status DC Acetaminophen (Tylenol) 650 mg PRN Q4HRS PRN PO HEADACHE Last administered on 06/07/19at 18:41; Start 06/05/19 at 23:00 Hydrochlorothiazide (Hydrodiuril) 25 mg DAILY PO Last administered on 06/08/19 10:57; Start 06/06/19 at 09:00; Stop 06/08/19 at 14:44; Status DC Metoprolol Succinate (Toprol Xl) 100 mg DAILY PO Last administered on 06/07/19 08:55; Start 06/06/19 at 09:00; Stop 06/07/19 at 10:04; Status DC Losartan Potassium (Cozaar) 100 mg DAILY PO Last administered on 06/09/19 09:11; Start 06/06/19 at 09:00 Nicardipine HCl 50 mg/Sodium Chloride 250 ml @ 25 mls/hr CONT PRN IV SEE I/O RECORD Last administered on 06/06/19at 02:15; Start 06/06/19 at 02:00 Albuterol Sulfate (Ventolin Neb Soln) 2.5 mg PRN Q6HRS PRN INH SHORTNESS OF BREATH; Start 06/06/19 at 15:15 Atorvastatin Calcium (Lipitor) 40 mg HS PO Last administered on 06/08/19at 21:09; Start 06/06/19 at 21:00 Calcium Acetate (Phoslo) 667 mg BIDWMEALS PO Last administered on 06/09/19 09:09; Start 06/06/19 at 17:00 Furosemide (Lasix) 40 mg [id number] PO Last administered on 06/08/19at 15:17; Start 06/06/19 at 15:45 Hydroxychloroquine Sulfate (Plaquenil) 200 mg DAILY PO Last administered on 06/08/19 08:56; Start 06/07/19 at 09:00 Pantoprazole Sodium (Protonix) 40 mg DAILYAC PO Last administered on 06/09/19 09:09; Start 06/07/19 at 07:30 Rivaroxaban (Xarelto) 10 mg DAILY PO Last administered on 06/09/19 09:11; Start 06/07/19 at 09:00 Non-Formulary Medication (Budesonide/ Formoterol Fumarate (Symbicort 160-4.5 Mcg Inhaler)) 1 puff BID IH ; Start 06/06/19 at 21:00; Stop 06/06/19 at 15:27; Status DC Multivitamins (Thera M Plus) 1 tab DAILY PO Last administered on 06/09/19 09:11; Start 06/07/19 at 09:00 Potassium Chloride (Klor-Con) 20 meq DAILYWBKFT PO Last administered on 06/09/19at 09:10; Start 06/07/19 at 08:00 Non-Formulary Medication (Tiotropium Jes[place] (Spiriva)) 2 inh DAILY IH ; Start 06/07/19 at 09:00; Stop 06/06/19 at 15:28; Status DC Budesonide (Pulmicort) 0.5 mg RTBID NEB Last administered on 06/09/19at 07:27; Start 06/06/19 at 20:00 Albuterol Sulfate (Ventolin Neb Soln) 2.5 mg RTQID NEB ; Start 06/06/19 at 16:00; Stop 06/06/19 at 15:35; Status DC Albuterol/ Ipratropium (Duoneb) 3 ml RTQID NEB Last administered on 06/09/19at 07:27; Start 06/06/19 at 16:00 Isosorbide Mononitrate (Imdur) 60 mg DAILY PO Last administered on 06/08/19at 08:55; Start 06/07/19 at 09:00; Stop 06/08/19 at 14:44; Status DC Hydralazine HCl (Apresoline Inj) 10 mg 1X ONCE IVP Last administered on 06/07/19at 01:44; Start 06/07/19 at 02:00; Stop 06/07/19 at 02:01; Status DC Sodium Chloride 1,000 ml @ 100 mls/hr Q10H ONCE IV Last administered on 06/07/19at 09:45; Start 06/07/19 at 09:45; Stop 06/07/19 at 09:55; Status DC Sodium Chloride 1,000 ml @ 100 mls/hr Q10H IV Last administered on 06/07/19at 11:28; Start 06/07/19 at 09:52; Stop 06/07/19 at 19:51; Status DC Labetalol HCl (Trandate) 200 mg BID PO Last administered on 06/09/19at 09:10; Start 06/07/19 at 10:15 Hydralazine HCl (Apresoline Inj) 10 mg 1X ONCE IVP Last administered on 1 0/25/19at 12:48; Start 06/07/19 at 12:45; Stop 06/07/19 at 12:46; Status DC Amlodipine Besylate (Norvasc) 5 mg 1X ONCE PO Last administered on 06/07/19at 12:49; Start 06/07/19 at 12:45; Stop 06/07/19 at 12:46; Status DC Iodixanol (Visipaque 320) 100 ml STK-MED ONCE .ROUTE ; Start 06/07/19 at 15:05; Stop 06/07/19 at 15:06; Status DC Lidocaine HCl (Xylocaine-Mpf 1% 2ml Vial) 2 ml STK-MED ONCE .ROUTE ; Start 06/07/19 at 15:06; Stop 06/07/19 at 15:06; Status DC Heparin Sodium/ Sodium Chloride 500 ml @ As Directed STK-MED ONCE .ROUTE ; Start 06/07/19 at 15:06; Stop 06/07/19 at 15:06; Status DC Fentanyl Citrate (Fentanyl 2ml Vial) 100 mcg STK-MED ONCE .ROUTE ; Start 06/07/19 at 15:36; Stop 06/07/19 at 15:37; Status DC Midazolam HCl (Versed) 2 mg STK-MED ONCE .ROUTE ; Start 06/07/19 at 15:36; Stop 06/07/19 at 15:37; Status DC Heparin Sodium (Porcine) (Heparin Sodium) 10,000 unit STK-MED ONCE .ROUTE ; Start 06/07/19 at 15:36; Stop 06/07/19 at 15:37; Status DC Verapamil HCl (Verapamil) 5 mg STK-MED ONCE .ROUTE ; Start 06/07/19 at 15:37; Stop 06/07/19 at 15:37; Status DC Nitroglycerin (Nitroglycerin) 200 mcg STK-MED ONCE .ROUTE ; Start 06/07/19 at 15:37; Stop 06/07/19 at 15:37; Status DC Hydralazine HCl (Apresoline Inj) 20 mg STK-MED ONCE .ROUTE ; Start 06/07/19 at 15:47; Stop 06/07/19 at 15:48; Status DC Nitroglycerin (Nitroglycerin) 200 mcg 1X ONCE IART Last administered on 06/07/19at 16:00; Start 06/07/19 at 16:00; Stop 06/07/19 at 16:01; Status DC Verapamil HCl (Verapamil) 2.5 mg 1X ONCE IART Last administered on 06/07/19at 16:00; Start 06/07/19 at 16:00; Stop 06/07/19 at 16:01; Status DC Heparin Sodium (Porcine) (Heparin Sodium) 2,500 unit 1X ONCE IART Last administered on 06/07/19at 16:00; Start 06/07/19 at 16:00; Stop 06/07/19 at 16:01; Status DC Heparin Sodium/ Sodium Chloride (HEPARIN for ARTERIAL LINE FLUSH) 1,000 unit 1X ONCE IART Last administered on 06/07/19 16:00; Start 06/07/19 at 16:00; Stop 06/07/19 at 16:01; Status DC Midazolam HCl (Versed) 2 mg 1X ONCE IV Last administered on 06/07/19at 16:00; Start 06/07/19 at 16:00; Stop 06/07/19 at 16:01; Status DC Fentanyl Citrate (Fentanyl 2ml Vial) 100 mcg 1X ONCE IV Last administered on 06/07/19 16:00; Start 06/07/19 at 16:00; Stop 06/07/19 at 16:01; Status DC Iodixanol (Visipaque 320) 100 ml 1X ONCE IART Last administered on 06/07/19at 16:00; Start 06/07/19 at 16:00; Stop 06/07/19 at 16:01; Status DC Lidocaine HCl (Xylocaine-Mpf 1% 2ml Vial) 2 ml 1X ONCE INJ Last administered on 06/07/19at 16:00; Start 06/07/19 at 16:00; Stop 06/07/19 at 16:01; Status DC Hydralazine HCl (Apresoline Inj) 10 mg 1X ONCE IVP Last administered on 06/07/19at 16:00; Start 06/07/19 at 16:00; Stop 06/07/19 at 16:01; Status DC Info (CONTRAST GIVEN -- Rx MONITORING) 1 each PRN DAILY PRN MC SEE COMMENTS; Start 06/07/19 at 16:00; Stop 06/09/19 at 15:59 Sodium Chloride (Normal Saline Flush) 3 ml QSHIFT PRN IV AFTER MEDS AND BLOOD DRAWS; Start 06/07/19 at 16:15 Nitroglycerin (Nitrostat) 0.4 mg PRN Q5MIN PRN SL CHEST PAIN; Start 06/07/19 at 16:15 Labetalol HCl (Normodyne Iv Push) 20 mg STK-MED ONCE IVP ; Start 06/07/19 at 17:17; Stop 06/07/19 at 18:23; Status DC Hydralazine HCl (Apresoline Inj) 10 mg PRN Q4HRS PRN IVP ELEVATED BP, SEE COMMENTS Last administered on 06/08/19at 15:20; Start 06/07/19 at 19:00 Clonidine HCl (Catapres Tts-2) 1 patch WEEKLY TD ; Start 06/14/19 at 09:00 Amlodipine Besylate (Norvasc) 10 mg DAILY PO Last administered on 06/09/19at 09:11; Start 06/08/19 at 15:00 Active Scripts Active Reported Hydrochlorothiazide Tablet (Hydrochlorothiazide) 25 Mg Tablet 25 Mg PO DAILY Protonix (Pantoprazole Sodium) 40 Mg Tablet.dr 40 Mg PO DAILYAC Losartan Potassium 100 Mg Tablet 100 Mg PO DAILY Hydroxychloroquine Sulfate 200 Mg Tablet 200 Mg PO DAILY Multivitamins (Multivitamin) 1 Each Tablet 1 Tab PO DAILY Metoprolol Succinate ( Xl ) (Metoprolol Succinate) 100 Mg Tab.er.24h 100 Mg PO DAILY Symbicort 160-4.5 Mcg Inhaler (Budesonide/Formoterol Fumarate) 10.2 Gm Hfa.aer.ad 1 Puff IH BID Spiriva (Tiotropium Jes[place]) 18 Mcg Cap.w.dev 2 Inh IH DAILY Proair Hfa Inhaler (Albuterol Sulfate) 8.5 Gm Hfa.aer.ad 1 Puff INH PRN Q6HRS PRN Xarelto (Rivaroxaban) 10 Mg Tablet 10 Mg PO DAILY Atorvastatin Calcium 40 Mg Tablet 40 Mg PO HS Phoslo (Calcium Acetate) 667 Mg Capsule 1 Cap PO BIDWMEALS K-Tab ER (Potassium Chloride) 20 Meq Tablet.er 20 Meq PO DAILY Furosemide 40 Mg Tablet 40 Mg PO BID92 Vitals/I & O Vital Sign - Last 24 Hours 06/08/19 06/08/19 06/08/19 06/08/19 11:15 15:00 15:20 15:20 Temp 97.4 97.4 Pulse 82 76 76 Resp 20 B/P (MAP) 152/72 (98) 188/99 188/99 Pulse Ox 98 O2 Delivery Room Air Room Air 06/08/19 06/08/19 06/08/19 06/08/19 16:06 19:15 20:00 20:17 Temp 97.5 97.5 Pulse 77 Resp 24 B/P (MAP) 149/89 (109) Pulse Ox 97 O2 Delivery Room Air Room Air Room Air Room Air 06/08/19 06/08/19 06/08/19 06/09/19 20:18 21:09 23:09 02:58 Temp 97.7 97.8 97.7 97.8 Pulse 86 87 84 Resp 22 18 B/P (MAP) 149/89 155/88 (110) 148/74 (98) Pulse Ox 96 98 O2 Delivery Room Air Room Air Room Air 06/09/19 06/09/19 06/09/19 06/09/19 07:00 07:27 08:00 09:10 Temp 97.9 97.9 Pulse 83 83 Resp 18 B/P (MAP) 169/89 (115) 169/89 Pulse Ox 94 99 O2 Delivery Room Air Room Air Room Air O2 Flow Rate 2.0 06/09/19 06/09/19 09:11 09:11 Pulse 83 83 B/P (MAP) 169/89 169/89 Intake and Output 06/08/19 06/08/19 06/09/19 15:00 23:00 07:00 Intake Total 550 ml 120 ml 60 ml Output Total 500 ml Balance 550 ml 120 ml -440 ml LAMONT ZARATE MD Jun 09, 2019 11:02
[2019-06-09] MEDS: HYDROXYCHLOROQUINE 200 MG TABLET PO SCH (12:08)
[2019-06-09] MEDS: hydrALAZINE 20 MG/ML VIAL. IVP PRN (12:09)
--- NOTE | 2019-06-09 12:21 | PDOC ---
PROGRESS NOTES Subjective Subjective Denied any chest pain or shortness of breath Objective Objective Vital Signs Date Time Temp Pulse Resp B/P (MAP) Pulse Ox O2 Delivery O2 Flow Rate FiO2 06/09/19 12:09 78 164/94 06/09/19 11:00 97.6 18 98 Room Air 97.6 06/09/19 08:00 2.0 Intake and Output 06/09/19 07:00 Intake Total 730 ml Output Total 500 ml Balance 230 ml Intake Oral 730 ml Output Urine Total 500 ml # Voids 3 Physical Exam Abdomen: Normal bowel sounds, Soft, No tenderness, No hepatosplenomegaly Heart: Regular rate, Normal S1, Normal S2, No murmurs, Gallops Extremities: No clubbing, No cyanosis, No edema, Normal pulses, No tenderness/swelling General: Alert, Oriented X3, Cooperative, No acute distress HEENT: Atraumatic, Mucous membr. moist/pink Lungs: Clear to auscultation, Normal air movement Neuro: Normal speech Psych/Mental Status: Mental status NL, Mood NL Skin: No breakdown, No significant lesion Diagnosis RENAL FAILURE: Chronic (CKD stage III) Assessment Assessment 1. Chest pain: Most probably secondary to uncontrolled hypertension. Cardiac catheterization did not show any significant coronary artery disease. 2. Acute on chronic diastolic CHF: better compensated. Continue diuretics. 2-D echo showed normal LV systolic function. 3. Mild 4. PAFIB: Presently in sinus rhythm. Patient is on xarelto for stroke prophylaxis. 5. Hx of lupus/antiphospholipid antibody syndrome with past PE 6. Malignant HTN: Better controlled but still slightly elevated despite changes in anti-hypertensive regimen. We will increase labetalol to 300 mg twice a day. 7. HLP: Statin therapy 8. Anemia of chronic disease with prior hx of thrombocytopenia and leukopenia: r/t past immunosuppresion 9. CKD3: Nephrology following 10. Hx of RA: currently just on plaquenil 11.. COPD/moderate pulmonary HTN: stable Plan Plan of Care Problems Medical Problems: (1) Acute exacerbation of CHF (congestive heart failure) Status: Acute (2) Chest pain Status: Acute (3) Hypertensive urgency Status: Acute Comment Review of Relevant I have reviewed the following items gregorio (where applicable) has been applied. Labs Laboratory Tests Test 06/09/19 05:59 White Blood Count 5.9 x10^3/uL (4.0-11.0) Red Blood Count 2.72 x10^6/uL (3.50-5.40) Hemoglobin 8.3 g/dL (12.0-15.5) Hematocrit 25.1 % (36.0-47.0) Mean Corpuscular Volume 93 fL (79-100) Mean Corpuscular Hemoglobin 31 pg (25-35) Mean Corpuscular Hemoglobin Concent 33 g/dL (31-37) Red Cell Distribution Width 16.9 % (11.5-14.5) Platelet Count 153 x10^3/uL (140-400) Neutrophils (%) (Auto) 70 % (31-73) Lymphocytes (%) (Auto) 18 % (24-48) Monocytes (%) (Auto) 9 % (0-9) Eosinophils (%) (Auto) 2 % (0-3) Basophils (%) (Auto) 1 % (0-3) Neutrophils # (Auto) 4.2 x10^3/uL (1.8-7.7) Lymphocytes # (Auto) 1.1 x10^3/uL (1.0-4.8) Monocytes # (Auto) 0.5 x10^3/uL (0.0-1.1) Eosinophils # (Auto) 0.1 x10^3/uL (0.0-0.7) Basophils # (Auto) 0.0 x10^3/uL (0.0-0.2) Sodium Level 144 mmol/L (136-145) Potassium Level 4.1 mmol/L (3.5-5.1) Chloride Level 109 mmol/L (98-107) Carbon Dioxide Level 27 mmol/L (21-32) Anion Gap 8 (6-14) Blood Urea Nitrogen 54 mg/dL (7-20) Creatinine 2.4 mg/dL (0.6-1.0) Estimated GFR (Cockcroft-Gault) 25.1 Glucose Level 77 mg/dL (70-99) Calcium Level 8.7 mg/dL (8.5-10.1) Phosphorus Level 3.6 mg/dL (2.6-4.7) Albumin 2.4 g/dL (3.4-5.0) Medications Current Medications Amlodipine Besylate (Norvasc) 10 mg DAILY PO Last administered on 06/09/19at 09:11; Start 06/08/19 at 15:00 Clonidine HCl (Catapres Tts-2) 1 patch WEEKLY TD ; Start 06/14/19 at 09:00 Vitals/I & O Vital Sign - Last 24 Hours 06/08/19 06/08/19 06/08/19 06/08/19 15:00 15:20 15:20 16:06 Temp 97.4 97.4 Pulse 82 76 76 Resp 20 B/P (MAP) 152/72 (98) 188/99 188/99 Pulse Ox 98 O2 Delivery Room Air Room Air 06/08/19 06/08/19 06/08/19 06/08/19 19:15 20:00 20:17 20:18 Temp 97.5 97.5 Pulse 77 Resp 24 B/P (MAP) 149/89 (109) Pulse Ox 97 O2 Delivery Room Air Room Air Room Air Room Air 06/08/19 06/08/19 06/09/19 06/09/19 21:09 23:09 02:58 07:00 Temp 97.7 97.8 97.9 97.7 97.8 97.9 Pulse 86 87 84 83 Resp 22 18 18 B/P (MAP) 149/89 155/88 (110) 148/74 (98) 169/89 (115) Pulse Ox 96 98 94 O2 Delivery Room Air Room Air Room Air 06/09/19 06/09/19 06/09/19 06/09/19 07:27 08:00 09:10 09:11 Pulse 83 83 B/P (MAP) 169/89 169/89 Pulse Ox 99 O2 Delivery Room Air Room Air O2 Flow Rate 2.0 06/09/19 06/09/19 06/09/19 09:11 11:00 12:09 Temp 97.6 97.6 Pulse 83 77 78 Resp 18 B/P (MAP) 169/89 164/94 (117) 164/94 Pulse Ox 98 O2 Delivery Room Air Intake and Output 06/08/19 06/08/19 06/09/19 15:00 23:00 07:00 Intake Total 550 ml 120 ml 60 ml Output Total 500 ml Balance 550 ml 120 ml -440 ml BRENDA RAY MD Jun 09, 2019 12:21
[2019-06-09] MEDS: IV NORMAL SALINE 1000ML BAG 1,000 ML IV SCH (12:45)
--- NOTE | 2019-06-09 13:07 | PDOC ---
PROGRESS NOTES Subjective Subjective SEEN IN FOLLOW UP OF CKD3 AND HTN Objective Objective Vital Signs Date Time Temp Pulse Resp B/P (MAP) Pulse Ox O2 Delivery O2 Flow Rate FiO2 06/09/19 12:53 80 139/76 (97) Room Air 06/09/19 11:00 97.6 18 98 97.6 06/09/19 08:00 2.0 Intake and Output 06/09/19 07:00 Intake Total 730 ml Output Total 500 ml Balance 230 ml Intake Oral 730 ml Output Urine Total 500 ml # Voids 3 Physical Exam Abdomen: Normal bowel sounds, Soft, No tenderness, No hepatosplenomegaly, No masses Heart: Regular rate, Normal S1, Normal S2, No murmurs, Gallops Extremities: No clubbing, No cyanosis, No edema, Normal pulses, No tenderness/swelling General: Alert, Oriented X3, Cooperative, No acute distress Lungs: Clear to auscultation, Normal air movement Psych/Mental Status: Mental status NL Diagnosis HYPERTENSION: Accelerated hypertension RENAL FAILURE: Chronic (CKD stage III) Assessment Assessment Problems Medical Problems: (1) Acute exacerbation of CHF (congestive heart failure) Status: Acute (2) Chest pain Status: Acute (3) Hypertensive urgency Status: Acute Plan Plan of Care POOR FLUID INTAKE AND ON LASIX. NOW PRERENAL (DRY) ON CKD3. WILL HOLD LASIX AND GIVE IVF. FOLLOW LAB Comment Review of Relevant I have reviewed the following items gregorio (where applicable) has been applied. Labs Laboratory Tests Test 06/08/19 04:30 06/09/19 05:59 Sodium Level 145 mmol/L (136-145) 144 mmol/L (136-145) Potassium Level 3.6 mmol/L (3.5-5.1) 4.1 mmol/L (3.5-5.1) Chloride Level 109 mmol/L (98-107) 109 mmol/L (98-107) Carbon Dioxide Level 30 mmol/L (21-32) 27 mmol/L (21-32) Anion Gap 6 (6-14) 8 (6-14) Blood Urea Nitrogen 48 mg/dL (7-20) 54 mg/dL (7-20) Creatinine 2.1 mg/dL (0.6-1.0) 2.4 mg/dL (0.6-1.0) Estimated GFR (Cockcroft-Gault) 29.3 25.1 Glucose Level 87 mg/dL (70-99) 77 mg/dL (70-99) Calcium Level 8.5 mg/dL (8.5-10.1) 8.7 mg/dL (8.5-10.1) White Blood Count 5.9 x10^3/uL (4.0-11.0) Red Blood Count 2.71 x10^6/uL (3.50-5.70) Hemoglobin 8.3 g/dL (12.0-15.5) Hematocrit 25.1 % (36.0-47.0) Mean Corpuscular Volume 93 fL (79-100) Mean Corpuscular Hemoglobin 31 pg (25-35) Mean Corpuscular Hemoglobin Concent 33 g/dL (31-37) Red Cell Distribution Width 16.9 % (11.5-14.5) Platelet Count 153 x10^3/uL (140-400) Neutrophils (%) (Auto) 70 % (31-73) Lymphocytes (%) (Auto) 18 % (24-48) Monocytes (%) (Auto) 9 % (0-9) Eosinophils (%) (Auto) 2 % (0-3) Basophils (%) (Auto) 1 % (0-3) Neutrophils # (Auto) 4.2 x10^3/uL (1.8-7.7) Lymphocytes # (Auto) 1.1 x10^3/uL (1.0-4.8) Monocytes # (Auto) 0.5 x10^3/uL (0.0-1.1) Eosinophils # (Auto) 0.1 x10^3/uL (0.0-0.7) Basophils # (Auto) 0.0 x10^3/uL (0.0-0.2) Absolute Reticulocyte Count 0.043 x10^6/uL (0.020-0.120) Percent Reticulocyte Count 1.6 % (0.5-2.3) Immature Reticulocyte Fraction 0.50 (0.20-0.60) Phosphorus Level 3.6 mg/dL (2.6-4.7) Iron Level 82 ug/dL (50-170) Total Iron Binding Capacity 395 ug/dL (250-450) Iron Saturation 21 % (15-34) Albumin 2.4 g/dL (3.4-5.0) Laboratory Tests Test 06/09/19 05:59 White Blood Count 5.9 x10^3/uL (4.0-11.0) Red Blood Count 2.71 x10^6/uL (3.50-5.70) Hemoglobin 8.3 g/dL (12.0-15.5) Hematocrit 25.1 % (36.0-47.0) Mean Corpuscular Volume 93 fL (79-100) Mean Corpuscular Hemoglobin 31 pg (25-35) Mean Corpuscular Hemoglobin Concent 33 g/dL (31-37) Red Cell Distribution Width 16.9 % (11.5-14.5) Platelet Count 153 x10^3/uL (140-400) Neutrophils (%) (Auto) 70 % (31-73) Lymphocytes (%) (Auto) 18 % (24-48) Monocytes (%) (Auto) 9 % (0-9) Eosinophils (%) (Auto) 2 % (0-3) Basophils (%) (Auto) 1 % (0-3) Neutrophils # (Auto) 4.2 x10^3/uL (1.8-7.7) Lymphocytes # (Auto) 1.1 x10^3/uL (1.0-4.8) Monocytes # (Auto) 0.5 x10^3/uL (0.0-1.1) Eosinophils # (Auto) 0.1 x10^3/uL (0.0-0.7) Basophils # (Auto) 0.0 x10^3/uL (0.0-0.2) Absolute Reticulocyte Count 0.043 x10^6/uL (0.020-0.120) Percent Reticulocyte Count 1.6 % (0.5-2.3) Immature Reticulocyte Fraction 0.50 (0.20-0.60) Sodium Level 144 mmol/L (136-145) Potassium Level 4.1 mmol/L (3.5-5.1) Chloride Level 109 mmol/L (98-107) Carbon Dioxide Level 27 mmol/L (21-32) Anion Gap 8 (6-14) Blood Urea Nitrogen 54 mg/dL (7-20) Creatinine 2.4 mg/dL (0.6-1.0) Estimated GFR (Cockcroft-Gault) 25.1 Glucose Level 77 mg/dL (70-99) Calcium Level 8.7 mg/dL (8.5-10.1) Phosphorus Level 3.6 mg/dL (2.6-4.7) Iron Level 82 ug/dL (50-170) Total Iron Binding Capacity 395 ug/dL (250-450) Iron Saturation 21 % (15-34) Albumin 2.4 g/dL (3.4-5.0) Medications Current Medications Hydralazine HCl (Apresoline Inj) 10 mg 1X ONCE IVP Last administered on 06/05/19at 18:30; Start 06/05/19 at 18:00; Stop 06/05/19 at 18:01; Status DC Labetalol HCl (Normodyne Iv Push) 20 mg 1X STAT IVP Last administered on 06/05/19at 19:20; Start 06/05/19 at 19:10; Stop 06/05/19 at 19:13; Status DC Ondansetron HCl (Zofran) 4 mg PRN Q8HRS PRN IV NAUSEA/VOMITING; Start 06/05/19 at 19:30; Stop 06/06/19 at 19:29; Status DC Fentanyl Citrate (Fentanyl 2ml Vial) 50 mcg PRN Q1HR PRN IV PAIN; Start 06/05/19 at 19:30; Stop 06/06/19 at 19:29; Status DC Labetalol HCl (Normodyne Iv Push) 20 mg PRN Q6HRS PRN IVP HYPERTENSION Last administered on 06/07/19at 23:35; Start 06/05/19 at 19:30 Losartan Potassium (Cozaar) 100 mg 1X ONCE PO Last administered on 06/05/19at 21:38; Start 06/05/19 at 21:30; Stop 06/05/19 at 21:31; Status DC Nitroglycerin/ Dextrose 250 ml @ 0 mls/hr 1X ONCE IV Last administered on 06/05/19at 21:41; Start 06/05/19 at 21:30; Stop 06/05/19 at 21:31; Status DC Nitroglycerin/ Dextrose 250 ml @ 1.5 mls/hr CONT PRN IV SEE I/O RECORD; Start 06/05/19 at 22:30; Stop 06/06/19 at 02:17; Status DC Acetaminophen (Tylenol) 650 mg PRN Q4HRS PRN PO HEADACHE Last administered on 06/07/19 18:41; Start 06/05/19 at 23:00 Hydrochlorothiazide (Hydrodiuril) 25 mg DAILY PO Last administered on 06/08/19at 10:57; Start 06/06/19 at 09:00; Stop 06/08/19 at 14:44; Status DC Metoprolol Succinate (Toprol Xl) 100 mg DAILY PO Last administered on 06/07/19 08:55; Start 06/06/19 at 09:00; Stop 06/07/19 at 10:04; Status DC Losartan Potassium (Cozaar) 100 mg DAILY PO Last administered on 06/09/19 09:11; Start 06/06/19 at 09:00 Nicardipine HCl 50 mg/Sodium Chloride 250 ml @ 25 mls/hr CONT PRN IV SEE I/O RECORD Last administered on 06/06/19at 02:15; Start 06/06/19 at 02:00 Albuterol Sulfate (Ventolin Neb Soln) 2.5 mg PRN Q6HRS PRN INH SHORTNESS OF RONNELL ATH; Start 06/06/19 at 15:15 Atorvastatin Calcium (Lipitor) 40 mg HS PO Last administered on 06/08/19 21:09; Start 06/06/19 at 21:00 Calcium Acetate (Phoslo) 667 mg BIDWMEALS PO Last administered on 06/09/19 09:09; Start 06/06/19 at 17:00 Furosemide (Lasix) 40 mg [id number] PO Last administered on 06/08/19at 15:17; Start 06/06/19 at 15:45; Stop 06/09/19 at 12:51; Status DC Hydroxychloroquine Sulfate (Plaquenil) 200 mg DAILY PO Last administered on 06/09/19 12:08; Start 06/07/19 at 09:00 Pantoprazole Sodium (Protonix) 40 mg DAILYAC PO Last administered on 06/09/19 09:09; Start 06/07/19 at 07:30 Rivaroxaban (Xarelto) 10 mg DAILY PO Last administered on 06/09/19 09:11; Start 06/07/19 at 09:00 Non-Formulary Medication (Budesonide/ Formoterol Fumarate (Symbicort 160-4.5 Mcg Inhaler)) 1 puff BID IH ; Start 06/06/19 at 21:00; Stop 06/06/19 at 15:27; Status DC Multivitamins (Thera M Plus) 1 tab DAILY PO Last administered on 06/09/19at 09:11; Start 06/07/19 at 09:00 Potassium Chloride (Klor-Con) 20 meq DAILYWBKFT PO Last administered on 06/09/19at 09:10; Start 06/07/19 at 08:00 Non-Formulary Medication (Tiotropium [place] (Spiriva)) 2 inh DAILY IH ; Start 06/07/19 at 09:00; Stop 06/06/19 at 15:28; Status DC Budesonide (Pulmicort) 0.5 mg RTBID NEB Last administered on 06/09/19at 07:27; Start 06/06/19 at 20:00 Albuterol Sulfate (Ventolin Neb Soln) 2.5 mg RTQID NEB ; Start 06/06/19 at 16:00; Stop 06/06/19 at 15:35; Status DC Albuterol/ Ipratropium (Duoneb) 3 ml RTQID NEB Last administered on 06/09/19at 07:27; Start 06/06/19 at 16:00 Isosorbide Mononitrate (Imdur) 60 mg DAILY PO Last administered on 06/08/19at 0 8:55; Start 06/07/19 at 09:00; Stop 06/08/19 at 14:44; Status DC Hydralazine HCl (Apresoline Inj) 10 mg 1X ONCE IVP Last administered on 06/07/19at 01:44; Start 06/07/19 at 02:00; Stop 06/07/19 at 02:01; Status DC Sodium Chloride 1,000 ml @ 100 mls/hr Q10H ONCE IV Last administered on 06/07/19at 09:45; Start 06/07/19 at 09:45; Stop 06/07/19 at 09:55; Status DC Sodium Chloride 1,000 ml @ 100 mls/hr Q10H IV Last administered on 06/07/19at 11:28; Start 06/07/19 at 09:52; Stop 06/07/19 at 19:51; Status DC Labetalol HCl (Trandate) 200 mg BID PO Last administered on 06/09/19at 09:10; Start 06/07/19 at 10:15 Hydralazine HCl (Apresoline Inj) 10 mg 1X ONCE IVP Last administered on 06/07/19at 12:48; Start 06/07/19 at 12:45; Stop 06/07/19 at 12:46; Status DC Amlodipine Besylate (Norvasc) 5 mg 1X ONCE PO Last administered on 06/07/19at 12:49; Start 06/07/19 at 12:45; Stop 06/07/19 at 12:46; Status DC Iodixanol (Visipaque 320) 100 ml STK-MED ONCE .ROUTE ; Start 06/07/19 at 15:05; Stop 06/07/19 at 15:06; Status DC Lidocaine HCl (Xylocaine-Mpf 1% 2ml Vial) 2 ml STK-MED ONCE .ROUTE ; Start 06/07/19 at 15:06; Stop 06/07/19 at 15:06; Status DC Heparin Sodium/ Sodium Chloride 500 ml @ As Directed STK-MED ONCE .ROUTE ; Start 06/07/19 at 15:06; Stop 06/07/19 at 15:06; Status DC Fentanyl Citrate (Fentanyl 2ml Vial) 100 mcg STK-MED ONCE .ROUTE ; Start 06/07/19 at 15:36; Stop 06/07/19 at 15:37; Status DC Midazolam HCl (Versed) 2 mg STK-MED ONCE .ROUTE ; Start 06/07/19 at 15:36; Stop 06/07/19 at 15:37; Status DC Heparin Sodium (Porcine) (Heparin Sodium) 10,000 unit STK-MED ONCE .ROUTE ; Start 06/07/19 at 15:36; Stop 06/07/19 at 15:37; Status DC Verapamil HCl (Verapamil) 5 mg STK-MED ONCE .ROUTE ; Start 06/07/19 at 15:37; Stop 06/07/19 at 15:37; Status DC Nitroglycerin (Nitroglycerin) 200 mcg STK-MED ONCE .ROUTE ; Start 06/07/19 at 15:37; Stop 06/07/19 at 15:37; Status DC Hydralazine HCl (Apresoline Inj) 20 mg STK-MED ONCE .ROUTE ; Start 06/07/19 at 15:47; Stop 06/07/19 at 15:48; Status DC Nitroglycerin (Nitroglycerin) 200 mcg 1X ONCE IART Last administered on 06/07/19 16:00; Start 06/07/19 at 16:00; Stop 06/07/19 at 16:01; Status DC Verapamil HCl (Verapamil) 2.5 mg 1X ONCE IART Last administered on 06/07/19 16:00; Start 06/07/19 at 16:00; Stop 06/07/19 at 16:01; Status DC Heparin Sodium (Porcine) (Heparin Sodium) 2,500 unit 1X ONCE IART Last administered on 06/07/19 16:00; Start 06/07/19 at 16:00; Stop 06/07/19 at 16:01; Status DC Heparin Sodium/ Sodium Chloride (HEPARIN for ARTERIAL LINE FLUSH) 1,000 unit 1X ONCE IART Last administered on 06/07/19 16:00; Start 06/07/19 at 16:00; S top 06/07/19 at 16:01; Status DC Midazolam HCl (Versed) 2 mg 1X ONCE IV Last administered on 06/07/19 16:00; Start 06/07/19 at 16:00; Stop 06/07/19 at 16:01; Status DC Fentanyl Citrate (Fentanyl 2ml Vial) 100 mcg 1X ONCE IV Last administered on 16:00; Start 06/07/19 at 16:00; Stop 06/07/19 at 16:01; Status DC Iodixanol (Visipaque 320) 100 ml 1X ONCE IART Last administered on 06/07/19 16:00; Start 06/07/19 at 16:00; Stop 06/07/19 at 16:01; Status DC Lidocaine HCl (Xylocaine-Mpf 1% 2ml Vial) 2 ml 1X ONCE INJ Last administered on 06/07/19 16:00; Start 06/07/19 at 16:00; Stop 06/07/19 at 16:01; Status DC Hydralazine HCl (Apresoline Inj) 10 mg 1X ONCE IVP Last administered on 06/07/19 16:00; Start 06/07/19 at 16:00; Stop 06/07/19 at 16:01; Status DC Info (CONTRAST GIVEN -- Rx MONITORING) 1 each PRN DAILY PRN MC SEE COMMENTS; Start 06/07/19 at 16:00; Stop 06/09/19 at 15:59 Sodium Chloride (Normal Saline Flush) 3 ml QSHIFT PRN IV AFTER MEDS AND BLOOD DRAWS; Start 06/07/19 at 16:15 Nitroglycerin (Nitrostat) 0.4 mg PRN Q5MIN PRN SL CHEST PAIN; Start 06/07/19 at 16:15 Labetalol HCl (Normodyne Iv Push) 20 mg STK-MED ONCE IVP ; Start 06/07/19 at 17:17; Stop 06/07/19 at 18:23; Status DC Hydralazine HCl (Apresoline Inj) 10 mg PRN Q4HRS PRN IVP ELEVATED BP, SEE COMMENTS Last administered on 06/09/19at 12:09; Start 06/07/19 at 19:00 Clonidine HCl (Catapres Tts-2) 1 patch WEEKLY TD ; Start 06/14/19 at 09:00 Amlodipine Besylate (Norvasc) 10 mg DAILY PO Last administered on 06/09/19at 09:11; Start 06/08/19 at 15:00 Sodium Chloride 1,000 ml @ 50 mls/hr Q20H IV Last administered on 06/09/19at 12:45; Start 06/09/19 at 12:30 Active Scripts Active Reported Hydrochlorothiazide Tablet (Hydrochlorothiazide) 25 Mg Tablet 25 Mg PO DAILY Protonix (Pantoprazole Sodium) 40 Mg Tablet.dr 40 Mg PO DAILYAC Losartan Potassium 100 Mg Tablet 100 Mg PO DAILY Hydroxychloroquine Sulfate 200 Mg Tablet 200 Mg PO DAILY Multivitamins (Multivitamin) 1 Each Tablet 1 Tab PO DAILY Metoprolol Succinate ( Xl ) (Metoprolol Succinate) 100 Mg Tab.er.24h 100 Mg PO DAILY Symbicort 160-4.5 Mcg Inhaler (Budesonide/Formoterol Fumarate) 10.2 Gm Hfa.aer.ad 1 Puff IH BID Spiriva (Tiotropium [place]) 18 Mcg Cap.w.dev 2 Inh IH DAILY Proair Hfa Inhaler (Albuterol Sulfate) 8.5 Gm Hfa.aer.ad 1 Puff INH PRN Q6HRS PRN Xarelto (Rivaroxaban) 10 Mg Tablet 10 Mg PO DAILY Atorvastatin Calcium 40 Mg Tablet 40 Mg PO HS Phoslo (Calcium Acetate) 667 Mg Capsule 1 Cap PO BIDWMEALS K-Tab ER (Potassium Chloride) 20 Meq Tablet.er 20 Meq PO DAILY Furosemide 40 Mg Tablet 40 Mg PO [id number] Vitals/I & O Vital Sign - Last 24 Hours 06/08/19 06/08/19 06/08/19 06/08/19 15:00 15:20 15:20 16:06 Temp 97.4 97.4 Pulse 82 76 76 Resp 20 B/P (MAP) 152/72 (98) 188/99 188/99 Pulse Ox 98 O2 Delivery Room Air Room Air 06/08/19 06/08/19 06/08/19 06/08/19 19:15 20:00 20:17 20:18 Temp 97.5 97.5 Pulse 77 Resp 24 B/P (MAP) 149/89 (109) Pulse Ox 97 O2 Delivery Room Air Room Air Room Air Room Air 06/08/19 06/08/19 06/09/19 06/09/19 21:09 23:09 02:58 07:00 Temp 97.7 97.8 97.9 97.7 97.8 97.9 Pulse 86 87 84 83 Resp 22 18 18 B/P (MAP) 149/89 155/88 (110) 148/74 (98) 169/89 (115) Pulse Ox 96 98 94 O2 Delivery Room Air Room Air Room Air 06/09/19 06/09/19 06/09/19 06/09/19 07:27 08:00 09:10 09:11 Pulse 83 83 B/P (MAP) 169/89 169/89 Pulse Ox 99 O2 Delivery Room Air Room Air O2 Flow Rate 2.0 06/09/19 06/09/19 06/09/19 06/09/19 09:11 11:00 12:09 12:53 Temp 97.6 97.6 Pulse 83 77 78 80 Resp 18 B/P (MAP) 169/89 164/94 (117) 164/94 139/76 (97) Pulse Ox 98 O2 Delivery Room Air Room Air Intake and Output 06/08/19 06/08/19 06/09/19 15:00 23:00 07:00 Intake Total 550 ml 120 ml 60 ml Output Total 500 ml Balance 550 ml 120 ml -440 ml STEPHANIA NICHOLAS MD Jun 09, 2019 13:07
[2019-06-09] MEDS: ATORVASTATIN CALCIUM 40 MG TABLET. PO SCH (21:48)
[2019-06-10] MEDS: ACETAMINOPHEN 325 MG TABLET. PO PRN ×2 (00:08→22:08)
[2019-06-10] MEDS: ALBUTEROL SULFATE 2.5 MG/3 ML NEBU. INH PRN (00:31)
[2019-06-10 03:25] VITALS: BP 158/82
[2019-06-10 04:16] LABS: BASO % 0 % (0-3); EOS # 0.2 x10^3/uL (0.0-0.7); EOS % 3 % (0-3); HEMOGLOBIN 8.6 g/dL (12.0-15.5); LYMPH # 1.2 x10^3/uL (1.0-4.8); LYMPH % 20 % (24-48); MEAN CORPUSCULAR HEMOGLOBIN 30 pg (25-35); MEAN CORPUSCULAR HGB CONC 33 g/dL (31-37); MEAN CORPUSCULAR VOLUME 92 fL (79-100); MONO # 0.5 x10^3/uL (0.0-1.1); MONO % 8 % (0-9); NEUT # 4.2 x10^3/uL (1.8-7.7); NEUT % 69 % (31-73); PLATELET COUNT 166 x10^3/uL (140-400); RED BLOOD COUNT 2.83 x10^6/uL (3.50-5.40)
[2019-06-10 05:00] LABS: ALBUMIN 2.3 g/dL (3.4-5.0); ALBUMIN/GLOBULIN RATIO 0.5 (1.0-1.7); CALCIUM 8.6 mg/dL (8.5-10.1); CREATININE 2.6 mg/dL (0.6-1.0); GFR 22.9; POTASSIUM 4.2 mmol/L (3.5-5.1); TOTAL BILIRUBIN 0.4 mg/dL (0.2-1.0); TOTAL PROTEIN 7.1 g/dL (6.4-8.2)
[2019-06-10 07:00] VITALS: BP 144/78
[2019-06-10] MEDS ORDERED: ANTI-COAG MONITOR BY PHARMACY. MC PRN (07:30)
[2019-06-10] MEDS: IPRATRPIUM/ALBUTEROL 0.5/2.5MG 3 ML NEBU. NEB SCH ×4 (07:44→19:43)
[2019-06-10] MEDS: BUDESONIDE 0.5 MG/2 ML NEBU. NEB SCH ×2 (07:44→19:42)
[2019-06-10] MEDS: RIVAROXABAN 10 MG TABLET. PO SCH (08:32)
[2019-06-10] MEDS: POTASSIUM CHLORIDE 20 MEQ TABLET.ER. PO SCH (08:32)
[2019-06-10] MEDS: amLODIPine BESYLATE 10 MG TABLET PO SCH (08:32)
[2019-06-10] MEDS: HYDROXYCHLOROQUINE 200 MG TABLET PO SCH (08:33)
[2019-06-10] MEDS: CALCIUM ACETATE 667 MG CAPSULE PO SCH ×2 (08:33→16:41)
[2019-06-10] MEDS: LOSARTAN POTASSIUM 50 MG TABLET. PO SCH (08:33)
[2019-06-10] MEDS: LABETALOL HCL 200 MG TABLET PO SCH ×2 (08:34→22:08)
[2019-06-10] MEDS: PANTOPRAZOLE 40 MG TABLET.DR. PO SCH (08:34)
[2019-06-10] MEDS: MULTIVITAMIN with MINERAL TABLET. PO SCH (08:38)
[2019-06-10] MEDS: IV NORMAL SALINE 1000ML BAG 1,000 ML IV SCH (08:39)
--- NOTE | 2019-06-10 10:25 | PDOC ---
PROGRESS NOTES Chief Complaint Chief Complaint Hypertensive urgency Chest pain, resolved Coronary calcifications per recent CT. Will consult nephrology for renal optimization. May need C pending tests noted below. Headache Findings a small vessel ischemic change, technically age indeterminate without prior imaging for comparison. Lupus/antiphospholipid antibody syndrome with past PE HYPERTENSIVE ENCEPHALOPATHY CKD STAGE 3 No Doppler evidence of greater than 60% stenosis within the renal arteries.Echogenic renal parenchyma, a finding which can be seen with medical renal disease.cr not at goal Small simple appearing renal cysts. Acute on chronic diastolic CHF Valvular insufficiency/diastolic murmur PAFIB: maintaining SR HLP Anemia of chronic disease with prior hx of thrombocytopenia and leukopenia: ruled as an effect from immunosuppression Hx of RA: not sure if she is still on imuran, but claims not being on steroids nor methotrexate anymore. Thyromegaly/nodules: per CT COPD Pulmonary HTN PLAN ADMIT CVC BED CARDIOLOGY CONSULT serial troponin i Renal duplex. study NOTED TTE neurology consult NEPHROLOGY FOLLOWING CR NOT AT BASELINE 29 min time pt exam, chart review, > 50% of time spent with exam, chart review, pt care coordination History of Present Illness History of Present Illness Ms Caruso is a 58yo F w/ PMHx AFIB, HTN, Hyperlipidemia, COPD, CKD3, Pulmonary embolus, APS/lupus admitted for complains of chest pain. She described the pain to her left chest as punching sensation lasting few seconds intermittent. No frequent dizziness and no palpitations. She has been noted with PAFIB No associated nausea, vomiting. No jaw or arm discomfort. No frequent indigestion. No exertional CP nor HOBSON. Found with BP 213/155, admitted for hypertensive emergency. BP has been coming down over the course of the weekend. Seen by nephrology, cardiology and neurology. She is a bit confused about whether she is in a longterm or hospital, states she likes the care she is getting her. She is asking to leave. No further chest pain or shortness of breath. Vitals Vitals Vital Signs Date Time Temp Pulse Resp B/P (MAP) Pulse Ox O2 Delivery O2 Flow Rate FiO2 06/10/19 08:34 82 144/78 06/10/19 08:00 Room Air 06/10/19 07:44 97 06/10/19 07:00 98.8 18 98.8 06/09/19 08:00 2.0 Physical Exam General: Alert, Oriented X3, Cooperative, No acute distress Heart: Regular rate, Normal S1, Normal S2, No murmurs, Gallops Lungs: Clear Abdomen: Normal bowel sounds, Soft, No tenderness, No hepatosplenomegaly, No masses Extremities: No clubbing, No cyanosis, No edema, Normal pulses, No tenderness/swelling Skin: No breakdown, No significant lesion Labs LABS Laboratory Tests Test 06/10/19 03:25 White Blood Count 6.0 x10^3/uL (4.0-11.0) Red Blood Count 2.83 x10^6/uL (3.50-5.40) Hemoglobin 8.6 g/dL (12.0-15.5) Hematocrit 26.0 % (36.0-47.0) Mean Corpuscular Volume 92 fL (79-100) Mean Corpuscular Hemoglobin 30 pg (25-35) Mean Corpuscular Hemoglobin Concent 33 g/dL (31-37) Red Cell Distribution Width 17.0 % (11.5-14.5) Platelet Count 166 x10^3/uL (140-400) Neutrophils (%) (Auto) 69 % (31-73) Lymphocytes (%) (Auto) 20 % (24-48) Monocytes (%) (Auto) 8 % (0-9) Eosinophils (%) (Auto) 3 % (0-3) Basophils (%) (Auto) 0 % (0-3) Neutrophils # (Auto) 4.2 x10^3/uL (1.8-7.7) Lymphocytes # (Auto) 1.2 x10^3/uL (1.0-4.8) Monocytes # (Auto) 0.5 x10^3/uL (0.0-1.1) Eosinophils # (Auto) 0.2 x10^3/uL (0.0-0.7) Basophils # (Auto) 0.0 x10^3/uL (0.0-0.2) Sodium Level 143 mmol/L (136-145) Potassium Level 4.2 mmol/L (3.5-5.1) Chloride Level 109 mmol/L (98-107) Carbon Dioxide Level 25 mmol/L (21-32) Anion Gap 9 (6-14) Blood Urea Nitrogen 56 mg/dL (7-20) Creatinine 2.6 mg/dL (0.6-1.0) Estimated GFR (Cockcroft-Gault) 22.9 BUN/Creatinine Ratio 22 (6-20) Glucose Level 86 mg/dL (70-99) Calcium Level 8.6 mg/dL (8.5-10.1) Total Bilirubin 0.4 mg/dL (0.2-1.0) Aspartate Amino Transf (AST/SGOT) 15 U/L (15-37) Alanine Aminotransferase (ALT/SGPT) 10 U/L (14-59) Alkaline Phosphatase 63 U/L (46-116) Total Protein 7.1 g/dL (6.4-8.2) Albumin 2.3 g/dL (3.4-5.0) Albumin/Globulin Ratio 0.5 (1.0-1.7) Assessment and Plan Assessmemt and Plan Problems Medical Problems: (1) Acute exacerbation of CHF (congestive heart failure) Status: Acute (2) Chest pain Status: Acute (3) Hypertensive urgency Status: Acute Comment Review of Relevant I have reviewed the following items gregorio (where applicable) has been applied. Labs Laboratory Tests Test 06/09/19 05:59 06/10/19 03:25 White Blood Count 5.9 x10^3/uL (4.0-11.0) 6.0 x10^3/uL (4.0-11.0) Red Blood Count 2.71 x10^6/uL (3.50-5.70) 2.83 x10^6/uL (3.50-5.40) Hemoglobin 8.3 g/dL (12.0-15.5) 8.6 g/dL (12.0-15.5) Hematocrit 25.1 % (36.0-47.0) 26.0 % (36.0-47.0) Mean Corpuscular Volume 93 fL (79-100) 92 fL (79-100) Mean Corpuscular Hemoglobin 31 pg (25-35) 30 pg (25-35) Mean Corpuscular Hemoglobin Concent 33 g/dL (31-37) 33 g/dL (31-37) Red Cell Distribution Width 16.9 % (11.5-14.5) 17.0 % (11.5-14.5) Platelet Count 153 x10^3/uL (140-400) 166 x10^3/uL (140-400) Neutrophils (%) (Auto) 70 % (31-73) 69 % (31-73) Lymphocytes (%) (Auto) 18 % (24-48) 20 % (24-48) Monocytes (%) (Auto) 9 % (0-9) 8 % (0-9) Eosinophils (%) (Auto) 2 % (0-3) 3 % (0-3) Basophils (%) (Auto) 1 % (0-3) 0 % (0-3) Neutrophils # (Auto) 4.2 x10^3/uL (1.8-7.7) 4.2 x10^3/uL (1.8-7.7) Lymphocytes # (Auto) 1.1 x10^3/uL (1.0-4.8) 1.2 x10^3/uL (1.0-4.8) Monocytes # (Auto) 0.5 x10^3/uL (0.0-1.1) 0.5 x10^3/uL (0.0-1.1) Eosinophils # (Auto) 0.1 x10^3/uL (0.0-0.7) 0.2 x10^3/uL (0.0-0.7) Basophils # (Auto) 0.0 x10^3/uL (0.0-0.2) 0.0 x10^3/uL (0.0-0.2) Absolute Reticulocyte Count 0.043 x10^6/uL (0.020-0.120) Percent Reticulocyte Count 1.6 % (0.5-2.3) Immature Reticulocyte Fraction 0.50 (0.20-0.60) Sodium Level 144 mmol/L (136-145) 143 mmol/L (136-145) Potassium Level 4.1 mmol/L (3.5-5.1) 4.2 mmol/L (3.5-5.1) Chloride Level 109 mmol/L (98-107) 109 mmol/L (98-107) Carbon Dioxide Level 27 mmol/L (21-32) 25 mmol/L (21-32) Anion Gap 8 (6-14) 9 (6-14) Blood Urea Nitrogen 54 mg/dL (7-20) 56 mg/dL (7-20) Creatinine 2.4 mg/dL (0.6-1.0) 2.6 mg/dL (0.6-1.0) Estimated GFR (Cockcroft-Gault) 25.1 22.9 Glucose Level 77 mg/dL (70-99) 86 mg/dL (70-99) Calcium Level 8.7 mg/dL (8.5-10.1) 8.6 mg/dL (8.5-10.1) Phosphorus Level 3.6 mg/dL (2.6-4.7) Iron Level 82 ug/dL (50-170) Total Iron Binding Capacity 395 ug/dL (250-450) Iron Saturation 21 % (15-34) Albumin 2.4 g/dL (3.4-5.0) 2.3 g/dL (3.4-5.0) BUN/Creatinine Ratio 22 (6-20) Total Bilirubin 0.4 mg/dL (0.2-1.0) Aspartate Amino Transf (AST/SGOT) 15 U/L (15-37) Alanine Aminotransferase (ALT/SGPT) 10 U/L (14-59) Alkaline Phosphatase 63 U/L (46-116) Total Protein 7.1 g/dL (6.4-8.2) Albumin/Globulin Ratio 0.5 (1.0-1.7) Laboratory Tests Test 06/10/19 03:25 White Blood Count 6.0 x10^3/uL (4.0-11.0) Red Blood Count 2.83 x10^6/uL (3.50-5.40) Hemoglobin 8.6 g/dL (12.0-15.5) Hematocrit 26.0 % (36.0-47.0) Mean Corpuscular Volume 92 fL (79-100) Mean Corpuscular Hemoglobin 30 pg (25-35) Mean Corpuscular Hemoglobin Concent 33 g/dL (31-37) Red Cell Distribution Width 17.0 % (11.5-14.5) Platelet Count 166 x10^3/uL (140-400) Neutrophils (%) (Auto) 69 % (31-73) Lymphocytes (%) (Auto) 20 % (24-48) Monocytes (%) (Auto) 8 % (0-9) Eosinophils (%) (Auto) 3 % (0-3) Basophils (%) (Auto) 0 % (0-3) Neutrophils # (Auto) 4.2 x10^3/uL (1.8-7.7) Lymphocytes # (Auto) 1.2 x10^3/uL (1.0-4.8) Monocytes # (Auto) 0.5 x10^3/uL (0.0-1.1) Eosinophils # (Auto) 0.2 x10^3/uL (0.0-0.7) Basophils # (Auto) 0.0 x10^3/uL (0.0-0.2) Sodium Level 143 mmol/L (136-145) Potassium Level 4.2 mmol/L (3.5-5.1) Chloride Level 109 mmol/L (98-107) Carbon Dioxide Level 25 mmol/L (21-32) Anion Gap 9 (6-14) Blood Urea Nitrogen 56 mg/dL (7-20) Creatinine 2.6 mg/dL (0.6-1.0) Estimated GFR (Cockcroft-Gault) 22.9 BUN/Creatinine Ratio 22 (6-20) Glucose Level 86 mg/dL (70-99) Calcium Level 8.6 mg/dL (8.5-10.1) Total Bilirubin 0.4 mg/dL (0.2-1.0) Aspartate Amino Transf (AST/SGOT) 15 U/L (15-37) Alanine Aminotransferase (ALT/SGPT) 10 U/L (14-59) Alkaline Phosphatase 63 U/L (46-116) Total Protein 7.1 g/dL (6.4-8.2) Albumin 2.3 g/dL (3.4-5.0) Albumin/Globulin Ratio 0.5 (1.0-1.7) Medications Current Medications Hydralazine HCl (Apresoline Inj) 10 mg 1X ONCE IVP Last administered on 06/05/19at 18:30; Start 06/05/19 at 18:00; Stop 06/05/19 at 18:01; Status DC Labetalol HCl (Normodyne Iv Push) 20 mg 1X STAT IVP Last administered on 06/05/19at 19:20; Start 06/05/19 at 19:10; Stop 06/05/19 at 19:13; Status DC Ondansetron HCl (Zofran) 4 mg PRN Q8HRS PRN IV NAUSEA/VOMITING; Start 06/05/19 at 19:30; Stop 06/06/19 at 19:29; Status DC Fentanyl Citrate (Fentanyl 2ml Vial) 50 mcg PRN Q1HR PRN IV PAIN; Start 06/05/19 at 19:30; Stop 06/06/19 at 19:29; Status DC Labetalol HCl (Normodyne Iv Push) 20 mg PRN Q6HRS PRN IVP HYPERTENSION Last administered on 06/07/19at 23:35; Start 06/05/19 at 19:30 Losartan Potassium (Cozaar) 100 mg 1X ONCE PO Last administered on 06/05/19at 21:38; Start 06/05/19 at 21:30; Stop 06/05/19 at 21:31; Status DC Nitroglycerin/ Dextrose 250 ml @ 0 mls/hr 1X ONCE IV Last administered on 06/05/19at 21:41; Start 06/05/19 at 21:30; Stop 06/05/19 at 21:31; Status DC Nitroglycerin/ Dextrose 250 ml @ 1.5 mls/hr CONT PRN IV SEE I/O RECORD; Start 06/05/19 at 22:30; Stop 06/06/19 at 02:17; Status DC Acetaminophen (Tylenol) 650 mg PRN Q4HRS PRN PO HEADACHE Last administered on 06/10/19at 00:08; Start 06/05/19 at 23:00 Hydrochlorothiazide (Hydrodiuril) 25 mg DAILY PO Last administered on 06/08/19at 10:57; Start 06/06/19 at 09:00; Stop 06/08/19 at 14:44; Status DC Metoprolol Succinate (Toprol Xl) 100 mg DAILY PO Last administered on 06/07/19at 08:55; Start 06/06/19 at 09:00; Stop 06/07/19 at 10:04; Status DC Losartan Potassium (Cozaar) 100 mg DAILY PO Last administered on 06/10/19at 08:33; Start 06/06/19 at 09:00 Nicardipine HCl 50 mg/Sodium Chloride 250 ml @ 25 mls/hr CONT PRN IV SEE I/O RECORD Last administered on 06/06/19at 02:15; Start 06/06/19 at 02:00 Albuterol Sulfate (Ventolin Neb Soln) 2.5 mg PRN Q6HRS PRN INH SHORTNESS OF BREATH Last administered on 06/10/19 00:31; Start 06/06/19 at 15:15 Atorvastatin Calcium (Lipitor) 40 mg HS PO Last administered on 06/09/19 21:48; Start 06/06/19 at 21:00 Calcium Acetate (Phoslo) 667 mg BIDWMEALS PO Last administered on 06/10/19 08:33; Start 06/06/19 at 17:00 Furosemide (Lasix) 40 mg BID92 PO Last administered on 06/08/19 15:17; Start 06/06/19 at 15:45; Stop 06/09/19 at 12:51; Status DC Hydroxychloroquine Sulfate (Plaquenil) 200 mg DAILY PO Last administered on 06/10/19 08:33; Start 06/07/19 at 09:00 Pantoprazole Sodium (Protonix) 40 mg DAILYAC PO Last administered on 06/10/19 08:34; Start 06/07/19 at 07:30 Rivaroxaban (Xarelto) 10 mg DAILY PO Last administered on 06/10/19 08:32; Start 06/07/19 at 09:00 Non-Formulary Medication (Budesonide/ Formoterol Fumarate (Symbicort 160-4.5 Mcg Inhaler)) 1 puff BID IH ; Start 06/06/19 at 21:00; Stop 06/06/19 at 15:27; Status DC Multivitamins (Thera M Plus) 1 tab DAILY PO Last administered on 06/10/19 08:38; Start 06/07/19 at 09:00 Potassium Chloride (Klor-Con) 20 meq DAILYWBKFT PO Last administered on 06/10/19 08:32; Start 06/07/19 at 08:00 Non-Formulary Medication (Tiotropium Dos Rios (Spiriva)) 2 inh DAILY IH ; Start 06/07/19 at 09:00; Stop 06/06/19 at 15:28; Status DC Budesonide (Pulmicort) 0.5 mg RTBID NEB Last administered on 06/10/19at 07:44; Start 06/06/19 at 20:00 Albuterol Sulfate (Ventolin Neb Soln) 2.5 mg RTQID NEB ; Start 06/06/19 at 16:00; Stop 06/06/19 at 15:35; Status DC Albuterol/ Ipratropium (Duoneb) 3 ml RTQID NEB Last administered on 06/10/19at 07:44; Start 06/06/19 at 16:00 Isosorbide Mononitrate (Imdur) 60 mg DAILY PO Last administered on 06/08/19at 08:55; Start 06/07/19 at 09:00; Stop 06/08/19 at 14:44; Status DC Hydralazine HCl (Apresoline Inj) 10 mg 1X ONCE IVP Last administered on 06/07/19at 01:44; Start 06/07/19 at 02:00; Stop 06/07/19 at 02:01; Status DC Sodium Chloride 1,000 ml @ 100 mls/hr Q10H ONCE IV Last administered on 06/07/19at 09:45; Start 06/07/19 at 09:45; Stop 06/07/19 at 09:55; Status DC Sodium Chloride 1,000 ml @ 100 mls/hr Q10H IV Last administered on 06/07/19at 11:28; Start 06/07/19 at 09:52; Stop 06/07/19 at 19:51; Status DC Labetalol HCl (Trandate) 200 mg BID PO Last administered on 06/09/19at 09:10; Start 06/07/19 at 10:15; Stop 06/09/19 at 14:39; Status DC Hydralazine HCl (Apresoline Inj) 10 mg 1X ONCE IVP Last administered on 06/07/19at 12:48; Start 06/07/19 at 12:45; Stop 06/07/19 at 12:46; Status DC Amlodipine Besylate (Norvasc) 5 mg 1X ONCE PO Last administered on 06/07/19at 12:49; Start 06/07/19 at 12:45; Stop 06/07/19 at 12:46; Status DC Iodixanol (Visipaque 320) 100 ml STK-MED ONCE .ROUTE ; Start 06/07/19 at 15:05; Stop 06/07/19 at 15:06; Status DC Lidocaine HCl (Xylocaine-Mpf 1% 2ml Vial) 2 ml STK-MED ONCE .ROUTE ; Start 06/07/19 at 15:06; Stop 06/07/19 at 15:06; Status DC Heparin Sodium/ Sodium Chloride 500 ml @ As Directed STK-MED ONCE .ROUTE ; Start 06/07/19 at 15:06; Stop 06/07/19 at 15:06; Status DC Fentanyl Citrate (Fentanyl 2ml Vial) 100 mcg STK-MED ONCE .ROUTE ; Start 06/07/19 at 15:36; Stop 06/07/19 at 15:37; Status DC Midazolam HCl (Versed) 2 mg STK-MED ONCE .ROUTE ; Start 06/07/19 at 15:36; Stop 06/07/19 at 15:37; Status DC Heparin Sodium (Porcine) (Heparin Sodium) 10,000 unit STK-MED ONCE .ROUTE ; Start 06/07/19 at 15:36; Stop 06/07/19 at 15:37; Status DC Verapamil HCl (Verapamil) 5 mg STK-MED ONCE .ROUTE ; Start 06/07/19 at 15:37; Stop 06/07/19 at 15:37; Status DC Nitroglycerin (Nitroglycerin) 200 mcg STK-MED ONCE .ROUTE ; Start 06/07/19 at 15:37; Stop 06/07/19 at 15:37; Status DC Hydralazine HCl (Apresoline Inj) 20 mg STK-MED ONCE .ROUTE ; Start 06/07/19 at 15:47; Stop 06/07/19 at 15:48; Status DC Nitroglycerin (Nitroglycerin) 200 mcg 1X ONCE IART Last administered on 06/07/19at 16:00; Start 06/07/19 at 16:00; Stop 06/07/19 at 16:01; Status DC Verapamil HCl (Verapamil) 2.5 mg 1X ONCE IART Last administered on 06/07/19at 16:00; Start 06/07/19 at 16:00; Stop 06/07/19 at 16:01; Status DC Heparin Sodium (Porcine) (Heparin Sodium) 2,500 unit 1X ONCE IART Last administered on 06/07/19at 16:00; Start 06/07/19 at 16:00; Stop 06/07/19 at 16:01; Status DC Heparin Sodium/ Sodium Chloride (HEPARIN for ARTERIAL LINE FLUSH) 1,000 unit 1X ONCE IART Last administered on 06/07/19at 16:00; Start 06/07/19 at 16:00; Stop 06/07/19 at 16:01; Status DC Midazolam HCl (Versed) 2 mg 1X ONCE IV Last administered on 06/07/19at 16:00; Start 06/07/19 at 16:00; Stop 06/07/19 at 16:01; Status DC Fentanyl Citrate (Fentanyl 2ml Vial) 100 mcg 1X ONCE IV Last administered on 06/07/19at 16:00; Start 06/07/19 at 16:00; Stop 06/07/19 at 16:01; Status DC Iodixanol (Visipaque 320) 100 ml 1X ONCE IART Last administered on 06/07/19at 16:00; Start 06/07/19 at 16:00; Stop 06/07/19 at 16:01; Status DC Lidocaine HCl (Xylocaine-Mpf 1% 2ml Vial) 2 ml 1X ONCE INJ Last administered on 06/07/19at 16:00; Start 06/07/19 at 16:00; Stop 06/07/19 at 16:01; Status DC Hydralazine HCl (Apresoline Inj) 10 mg 1X ONCE IVP Last administered on 06/07/19at 16:00; Start 06/07/19 at 16:00; Stop 06/07/19 at 16:01; Status DC Info (CONTRAST GIVEN -- Rx MONITORING) 1 each PRN DAILY PRN MC SEE COMMENTS; Start 06/07/19 at 16:00; Stop 06/09/19 at 15:59; Status DC Sodium Chloride (Normal Saline Flush) 3 ml QSHIFT PRN IV AFTER MEDS AND BLOOD DRAWS; Start 06/07/19 at 16:15 Nitroglycerin (Nitrostat) 0.4 mg PRN Q5MIN PRN SL CHEST PAIN; Start 06/07/19 at 16:15 Labetalol HCl (Normodyne Iv Push) 20 mg STK-MED ONCE IVP ; Start 06/07/19 at 17:17; Stop 06/07/19 at 18:23; Status DC Hydralazine HCl (Apresoline Inj) 10 mg PRN Q4HRS PRN IVP ELEVATED BP, SEE COMMENTS Last administered on 06/09/19at 12:09; Start 06/07/19 at 19:00 Clonidine HCl (Catapres Tts-2) 1 patch WEEKLY TD ; Start 06/14/19 at 09:00 Amlodipine Besylate (Norvasc) 10 mg DAILY PO Last administered on 06/10/19at 08:32; Start 06/08/19 at 15:00 Sodium Chloride 1,000 ml @ 50 mls/hr Q20H IV Last administered on 06/10/19at 08:39; Start 06/09/19 at 12:30 Labetalol HCl (Trandate) 300 mg BID PO Last administered on 06/10/19at 08:34; Start 06/09/19 at 21:00 Info (Anti-Coagulation Monitoring By Pharmacy) 1 each PRN DAILY PRN [facility] S[facility] JACK; Start 06/10/19 at 07:30 Active Scripts Active Reported Hydrochlorothiazide Tablet (Hydrochlorothiazide) 25 Mg Tablet 25 Mg PO DAILY Protonix (Pantoprazole Sodium) 40 Mg Tablet.dr 40 Mg PO DAILYAC Losartan Potassium 100 Mg Tablet 100 Mg PO DAILY Hydroxychloroquine Sulfate 200 Mg Tablet 200 Mg PO DAILY Multivitamins (Multivitamin) 1 Each Tablet 1 Tab PO DAILY Metoprolol Succinate ( Xl ) (Metoprolol Succinate) 100 Mg Tab.er.24h 100 Mg PO DAILY Symbicort 160-4.5 Mcg Inhaler (Budesonide/Formoterol Fumarate) 10.2 Gm Hfa.aer.ad 1 Puff IH BID Spiriva (Tiotropium Dos Rios) 18 Mcg Cap.w.dev 2 Inh IH DAILY Proair Hfa Inhaler (Albuterol Sulfate) 8.5 Gm Hfa.aer.ad 1 Puff INH PRN Q6HRS PRN Xarelto (Rivaroxaban) 10 Mg Tablet 10 Mg PO DAILY Atorvastatin Calcium 40 Mg Tablet 40 Mg PO HS Phoslo (Calcium Acetate) 667 Mg Capsule 1 Cap PO BIDWMEALS K-Tab ER (Potassium Chloride) 20 Meq Tablet.er 20 Meq PO DAILY Furosemide 40 Mg Tablet 40 Mg PO [id number] Vitals/I & O Vital Sign - Last 24 Hours 06/09/19 06/09/19 06/09/19 06/09/19 11:00 12:09 12:53 14:56 Temp 97.6 97.0 97.6 97.0 Pulse 77 78 80 81 Resp 18 18 B/P (MAP) 164/94 (117) 164/94 139/76 (97) 118/62 (80) Pulse Ox 98 98 O2 Delivery Room Air Room Air Room Air 06/09/19 06/09/19 06/09/19 06/09/19 16:00 19:05 19:24 19:25 Temp 97.6 97.6 Pulse 84 Resp 20 B/P (MAP) 130/72 (91) Pulse Ox 99 O2 Delivery Room Air Room Air Room Air Room Air 06/09/19 06/09/19 06/09/19 06/10/19 20:00 21:49 22:50 00:29 Temp 97.9 97.9 Pulse 84 84 Resp 18 B/P (MAP) 130/72 146/77 (100) Pulse Ox 97 O2 Delivery Room Air Room Air Room Air 06/10/19 06/10/19 06/10/19 06/10/19 03:25 07:00 07:44 08:00 Temp 97.9 98.8 97.9 98.8 Pulse 85 82 Resp 18 18 B/P (MAP) 158/82 (107) 144/78 (100) Pulse Ox 96 96 97 O2 Delivery Room Air Room Air Room Air Room Air 06/10/19 06/10/19 06/10/19 08:32 08:33 08:34 Pulse 82 82 82 B/P (MAP) 144/78 144/78 144/78 Intake and Output0 06/09/19 06/09/19 06/10/19 15:00 23:00 07:00 Intake Total 200 ml 200 ml 300 ml Output Total 150 ml 200 ml Balance 50 ml 200 ml 100 ml Images Renal duplex - 1. No Doppler evidence of greater than 60% stenosis within the renal arteries. 2. Echogenic renal parenchyma, a finding which can be seen with medical renal disease. 3. Small simple appearing renal cysts. PAMELA HDZ MD Jun 10, 2019 10:25
[2019-06-10 11:03] VITALS: BP 133/72
--- NOTE | 2019-06-10 11:41 | PDOC ---
SUBJECTIVE ROS Stable, No CP OBJECTIVE Vital Signs Vital Signs Date Time Temp Pulse Resp B/P (MAP) Pulse Ox O2 Delivery O2 Flow Rate FiO2 06/10/19 11:26 99 Room Air 06/10/19 11:03 97.6 77 16 133/72 (92) 97.6 06/09/19 08:00 2.0 I & 0 Intake and Output 06/10/19 07:00 Intake Total 700 ml Output Total 350 ml Balance 350 ml Intake Oral 700 ml Output Urine Total 350 ml # Voids 2 PHYSICAL EXAM Physical Exam General: No acute distress HEENT: Atraumatic, Mucous membr. moist/pink Neck Supple Lungs: Clear to auscultation, Non labored Heart: Regular rate, Normal S1, Normal S2, systolic murmur + Abdomen: Soft, No tenderness Extremities: No cyanosis, No edema Skin: No rash Neuro: Grossly normal Psych/Mental Status: Mental status NL, Mood NL No reid , No CVA or SP tenderness DIAGNOSIS/ASSESSMENT Assessment & Plan RIYA- Cr worsening S/P Cardiac cath 06/07 Currently not on Diuretics , card managing Hold ARB , supportive care, Monitor, Strict I/O CKD stage 3-Follows with our office, seen by me in sep and most recent appt with [facility] in Apr at presentation at baseline renal function Increased risk of ALIZA dw Pt , Recommended ALIZA prophylaxis ALIZA with IVF, Hold Diuretics Chest Pain s/p cardiac Cath- Normal Membranous Nephropathy Dx in post Bx Proteinuria at Dx was 8 gm, improved most recent Pr/Cr <200 On ARB - may have to hold due to worsening renal function SLE- Use to follow with Rheumatology (Dr Hill) ,was on Imuran Currently only on Hydroxychloroquine Not seen for long time due to the financial constraints HTN- On antihyprtensives Anemia- Most recent op Hgb [address] Baez as OP and was on Aranesp - none in past few months per patient COMMENT/RELEVANT DATA Meds Current Medications Medications (Trade) Dose Ordered Sig/Blaine Start Time Stop Time Status Last Admin Dose Admin Acetaminophen (Tylenol) 650 mg PRN Q4HRS PRN 06/05/19 23:00 06/10/19 00:08 650 MG Albuterol Sulfate (Ventolin Neb Soln) 2.5 mg RTQID 06/06/19 16:00 06/06/19 15:35 DC Albuterol/ Ipratropium (Duoneb) 3 ml RTQID 06/06/19 16:00 06/10/19 11:26 3 ML Amlodipine Besylate (Norvasc) 10 mg DAILY 06/08/19 15:00 06/10/19 08:32 10 MG Atorvastatin Calcium (Lipitor) 40 mg HS 06/06/19 21:00 06/09/19 21:48 40 MG Budesonide (Pulmicort) 0.5 mg RTBID 06/06/19 20:00 06/10/19 07:44 0.5 MG Calcium Acetate (Phoslo) 667 mg BIDWMEALS 06/06/19 17:00 06/10/19 08:33 667 MG Clonidine HCl (Catapres Tts-2) 1 patch WEEKLY 06/14/19 09:00 Fentanyl Citrate (Fentanyl 2ml Vial) 100 mcg 1X ONCE 06/07/19 16:00 06/07/19 16:01 DC 06/07/19 16:00 50 MCG Furosemide (Lasix) 40 mg [id number] 06/06/19 15:45 06/09/19 12:51 DC 06/08/19 15:17 40 MG Heparin Sodium (Porcine) (Heparin Sodium) 2,500 unit 1X ONCE 06/07/19 16:00 06/07/19 16:01 DC 06/07/19 16:00 2,500 UNIT Heparin Sodium/ Sodium Chloride (HEPARIN for ARTERIAL LINE FLUSH) 1,000 unit 1X ONCE 06/07/19 16:00 06/07/19 16:01 DC 06/07/19 16:00 1,000 UNIT Hydralazine HCl (Apresoline Inj) 10 mg PRN Q4HRS PRN 06/07/19 19:00 06/09/19 12:09 10 MG Hydrochlorothiazide (Hydrodiuril) 25 mg DAILY 06/06/19 09:00 06/08/19 14:44 DC 06/08/19 10:57 25 MG Hydroxychloroquine Sulfate (Plaquenil) 200 mg DAILY 06/07/19 09:00 06/10/19 08:33 200 MG Info (Anti-Coagulation Monitoring By Pharmacy) 1 each PRN DAILY PRN 06/10/19 07:30 06/10/19 11:19 1 EACH Info (CONTRAST GIVEN -- Rx MONITORING) 1 each PRN DAILY PRN 06/07/19 16:00 06/09/19 15:59 DC Iodixanol (Visipaque 320) 100 ml 1X ONCE 06/07/19 16:00 06/07/19 16:01 DC 06/07/19 16:00 59 ML Isosorbide Mononitrate (Imdur) 60 mg DAILY 06/07/19 09:00 06/08/19 14:44 DC 06/08/19 08:55 60 MG Labetalol HCl (Normodyne Iv Push) 20 mg STK-MED ONCE 06/07/19 17:17 06/07/19 18:23 DC Labetalol HCl (Trandate) 300 mg BID 06/09/19 21:00 06/10/19 08:34 300 MG Lidocaine HCl (Xylocaine-Mpf 1% 2ml Vial) 2 ml 1X ONCE 06/07/19 16:00 06/07/19 16:01 DC 06/07/19 16:00 1 ML Losartan Potassium (Cozaar) 100 mg DAILY 06/06/19 09:00 06/10/19 08:33 100 MG Metoprolol Succinate (Toprol Xl) 100 mg DAILY 06/06/19 09:00 06/07/19 10:04 DC 06/07/19 08:55 100 MG Midazolam HCl (Versed) 2 mg 1X ONCE 06/07/19 16:00 06/07/19 16:01 DC 06/07/19 16:00 1 MG Multivitamins (Thera M Plus) 1 tab DAILY 06/07/19 09:00 06/10/19 08:38 1 TAB Nicardipine HCl 50 mg/Sodium Chloride 250 ml @ 25 mls/hr CONT PRN 06/06/19 02:00 06/06/19 02:15 25 MLS/HR Nitroglycerin (Nitroglycerin) 200 mcg 1X ONCE 06/07/19 16:00 06/07/19 16:01 DC 06/07/19 16:00 200 MCG Nitroglycerin (Nitrostat) 0.4 mg PRN Q5MIN PRN 06/07/19 16:15 Nitroglycerin/ Dextrose 250 ml @ 1.5 mls/hr CONT PRN 06/05/19 22:30 06/06/19 02:17 DC Non-Formulary Medication (Budesonide/ Formoterol Fumarate (Symbicort 160-4.5 Mcg Inhaler)) 1 puff BID 06/06/19 21:00 06/06/19 15:27 DC Non-Formulary Medication (Tiotropium [place] (Spiriva)) 2 inh DAILY 06/07/19 09:00 06/06/19 15:28 DC Ondansetron HCl (Zofran) 4 mg PRN Q8HRS PRN 06/05/19 19:30 06/06/19 19:29 DC Pantoprazole Sodium (Protonix) 40 mg DAILYAC 06/07/19 07:30 06/10/19 08:34 40 MG Potassium Chloride (Klor-Con) 20 meq DAILYWBKFT 06/07/19 08:00 06/10/19 08:32 20 MEQ Rivaroxaban (Xarelto) 10 mg DAILY 06/07/19 09:00 06/10/19 08:32 10 MG Sodium Chloride 1,000 ml @ 50 mls/hr Q20H 06/09/19 12:30 06/10/19 08:39 50 MLS/HR Sodium Chloride (Normal Saline Flush) 3 ml QSHIFT PRN 06/07/19 16:15 Verapamil HCl (Verapamil) 2.5 mg 1X ONCE 06/07/19 16:00 06/07/19 16:01 DC 06/07/19 16:00 2.5 MG Lab Laboratory Tests Test 06/10/19 03:25 White Blood Count 6.0 x10^3/uL (4.0-11.0) Red Blood Count 2.83 x10^6/uL (3.50-5.40) Hemoglobin 8.6 g/dL (12.0-15.5) Hematocrit 26.0 % (36.0-47.0) Mean Corpuscular Volume 92 fL (79-100) Mean Corpuscular Hemoglobin 30 pg (25-35) Mean Corpuscular Hemoglobin Concent 33 g/dL (31-37) Red Cell Distribution Width 17.0 % (11.5-14.5) Platelet Count 166 x10^3/uL (140-400) Neutrophils (%) (Auto) 69 % (31-73) Lymphocytes (%) (Auto) 20 % (24-48) Monocytes (%) (Auto) 8 % (0-9) Eosinophils (%) (Auto) 3 % (0-3) Basophils (%) (Auto) 0 % (0-3) Neutrophils # (Auto) 4.2 x10^3/uL (1.8-7.7) Lymphocytes # (Auto) 1.2 x10^3/uL (1.0-4.8) Monocytes # (Auto) 0.5 x10^3/uL (0.0-1.1) Eosinophils # (Auto) 0.2 x10^3/uL (0.0-0.7) Basophils # (Auto) 0.0 x10^3/uL (0.0-0.2) Sodium Level 143 mmol/L (136-145) Potassium Level 4.2 mmol/L (3.5-5.1) Chloride Level 109 mmol/L (98-107) Carbon Dioxide Level 25 mmol/L (21-32) Anion Gap 9 (6-14) Blood Urea Nitrogen 56 mg/dL (7-20) Creatinine 2.6 mg/dL (0.6-1.0) Estimated GFR (Cockcroft-Gault) 22.9 BUN/Creatinine Ratio 22 (6-20) Glucose Level 86 mg/dL (70-99) Calcium Level 8.6 mg/dL (8.5-10.1) Total Bilirubin 0.4 mg/dL (0.2-1.0) Aspartate Amino Transf (AST/SGOT) 15 U/L (15-37) Alanine Aminotransferase (ALT/SGPT) 10 U/L (14-59) Alkaline Phosphatase 63 U/L (46-116) Total Protein 7.1 g/dL (6.4-8.2) Albumin 2.3 g/dL (3.4-5.0) Albumin/Globulin Ratio 0.5 (1.0-1.7) Results All relevant outside records, renal labs, imaging studies, telemetry/EKG's were reviewed. SHEILA CREWS MD Jun 10, 2019 11:41
--- NOTE | 2019-06-10 11:47 | PDOC ---
PROGRESS NOTES Assessment Problems Medical Problems: (1) Acute exacerbation of CHF (congestive heart failure) Status: Acute (2) Chest pain Status: Acute (3) Hypertensive urgency Status: Acute Hypertensive encephalopathy. Headaches, resolved. Medical issues:.palpitations, atrial fibrillation, possible lupus, hyperlipidemia, hypertension, chronic obstructive pulmonary disease, renal failure with worsening creatinine, possible pulmonary infiltrate Plan Treat medical diseases. Neurologically stable for discharge Subjective No complaints, wants to go home Objective Vital Signs Date Time Temp Pulse Resp B/P (MAP) Pulse Ox O2 Delivery O2 Flow Rate FiO2 06/10/19 11:26 99 Room Air 06/10/19 11:03 97.6 77 16 133/72 (92) 97.6 06/09/19 08:00 2.0 Intake and Output 06/10/19 07:00 Intake Total 700 ml Output Total 350 ml Balance 350 ml Intake Oral 700 ml Output Urine Total 350 ml # Voids 2 PHYSICAL EXAM Alert. Oriented to time, place and person. PERRL. EOMI. CN: no focal findings. Muscle tone: normal. Muscle strength: 5/5 DTR: 2+ Plantar reflex: flexor Gait: not examined in bed. Sensory exam: no abnormal findings. No cerebellar signs elicited. Review of Relevant I have reviewed the following items gregorio (where applicable) has been applied. Labs Laboratory Tests Test 06/09/19 05:59 06/10/19 03:25 White Blood Count 5.9 x10^3/uL (4.0-11.0) 6.0 x10^3/uL (4.0-11.0) Red Blood Count 2.71 x10^6/uL (3.50-5.70) 2.83 x10^6/uL (3.50-5.40) Hemoglobin 8.3 g/dL (12.0-15.5) 8.6 g/dL (12.0-15.5) Hematocrit 25.1 % (36.0-47.0) 26.0 % (36.0-47.0) Mean Corpuscular Volume 93 fL (79-100) 92 fL (79-100) Mean Corpuscular Hemoglobin 31 pg (25-35) 30 pg (25-35) Mean Corpuscular Hemoglobin Concent 33 g/dL (31-37) 33 g/dL (31-37) Red Cell Distribution Width 16.9 % (11.5-14.5) 17.0 % (11.5-14.5) Platelet Count 153 x10^3/uL (140-400) 166 x10^3/uL (140-400) Neutrophils (%) (Auto) 70 % (31-73) 69 % (31-73) Lymphocytes (%) (Auto) 18 % (24-48) 20 % (24-48) Monocytes (%) (Auto) 9 % (0-9) 8 % (0-9) Eosinophils (%) (Auto) 2 % (0-3) 3 % (0-3) Basophils (%) (Auto) 1 % (0-3) 0 % (0-3) Neutrophils # (Auto) 4.2 x10^3/uL (1.8-7.7) 4.2 x10^3/uL (1.8-7.7) Lymphocytes # (Auto) 1.1 x10^3/uL (1.0-4.8) 1.2 x10^3/uL (1.0-4.8) Monocytes # (Auto) 0.5 x10^3/uL (0.0-1.1) 0.5 x10^3/uL (0.0-1.1) Eosinophils # (Auto) 0.1 x10^3/uL (0.0-0.7) 0.2 x10^3/uL (0.0-0.7) Basophils # (Auto) 0.0 x10^3/uL (0.0-0.2) 0.0 x10^3/uL (0.0-0.2) Absolute Reticulocyte Count 0.043 x10^6/uL (0.020-0.120) Percent Reticulocyte Count 1.6 % (0.5-2.3) Immature Reticulocyte Fraction 0.50 (0.20-0.60) Sodium Level 144 mmol/L (136-145) 143 mmol/L (136-145) Potassium Level 4.1 mmol/L (3.5-5.1) 4.2 mmol/L (3.5-5.1) Chloride Level 109 mmol/L (98-107) 109 mmol/L (98-107) Carbon Dioxide Level 27 mmol/L (21-32) 25 mmol/L (21-32) Anion Gap 8 (6-14) 9 (6-14) Blood Urea Nitrogen 54 mg/dL (7-20) 56 mg/dL (7-20) Creatinine 2.4 mg/dL (0.6-1.0) 2.6 mg/dL (0.6-1.0) Estimated GFR (Cockcroft-Gault) 25.1 22.9 Glucose Level 77 mg/dL (70-99) 86 mg/dL (70-99) Calcium Level 8.7 mg/dL (8.5-10.1) 8.6 mg/dL (8.5-10.1) Phosphorus Level 3.6 mg/dL (2.6-4.7) Iron Level 82 ug/dL (50-170) Total Iron Binding Capacity 395 ug/dL (250-450) Iron Saturation 21 % (15-34) Albumin 2.4 g/dL (3.4-5.0) 2.3 g/dL (3.4-5.0) BUN/Creatinine Ratio 22 (6-20) Total Bilirubin 0.4 mg/dL (0.2-1.0) Aspartate Amino Transf (AST/SGOT) 15 U/L (15-37) Alanine Aminotransferase (ALT/SGPT) 10 U/L (14-59) Alkaline Phosphatase 63 U/L (46-116) Total Protein 7.1 g/dL (6.4-8.2) Albumin/Globulin Ratio 0.5 (1.0-1.7) Laboratory Tests Test 06/10/19 03:25 White Blood Count 6.0 x10^3/uL (4.0-11.0) Red Blood Count 2.83 x10^6/uL (3.50-5.40) Hemoglobin 8.6 g/dL (12.0-15.5) Hematocrit 26.0 % (36.0-47.0) Mean Corpuscular Volume 92 fL (79-100) Mean Corpuscular Hemoglobin 30 pg (25-35) Mean Corpuscular Hemoglobin Concent 33 g/dL (31-37) Red Cell Distribution Width 17.0 % (11.5-14.5) Platelet Count 166 x10^3/uL (140-400) Neutrophils (%) (Auto) 69 % (31-73) Lymphocytes (%) (Auto) 20 % (24-48) Monocytes (%) (Auto) 8 % (0-9) Eosinophils (%) (Auto) 3 % (0-3) Basophils (%) (Auto) 0 % (0-3) Neutrophils # (Auto) 4.2 x10^3/uL (1.8-7.7) Lymphocytes # (Auto) 1.2 x10^3/uL (1.0-4.8) Monocytes # (Auto) 0.5 x10^3/uL (0.0-1.1) Eosinophils # (Auto) 0.2 x10^3/uL (0.0-0.7) Basophils # (Auto) 0.0 x10^3/uL (0.0-0.2) Sodium Level 143 mmol/L (136-145) Potassium Level 4.2 mmol/L (3.5-5.1) Chloride Level 109 mmol/L (98-107) Carbon Dioxide Level 25 mmol/L (21-32) Anion Gap 9 (6-14) Blood Urea Nitrogen 56 mg/dL (7-20) Creatinine 2.6 mg/dL (0.6-1.0) Estimated GFR (Cockcroft-Gault) 22.9 BUN/Creatinine Ratio 22 (6-20) Glucose Level 86 mg/dL (70-99) Calcium Level 8.6 mg/dL (8.5-10.1) Total Bilirubin 0.4 mg/dL (0.2-1.0) Aspartate Amino Transf (AST/SGOT) 15 U/L (15-37) Alanine Aminotransferase (ALT/SGPT) 10 U/L (14-59) Alkaline Phosphatase 63 U/L (46-116) Total Protein 7.1 g/dL (6.4-8.2) Albumin 2.3 g/dL (3.4-5.0) Albumin/Globulin Ratio 0.5 (1.0-1.7) Medications Current Medications Hydralazine HCl (Apresoline Inj) 10 mg 1X ONCE IVP Last administered on 06/05/19at 18:30; Start 06/05/19 at 18:00; Stop 06/05/19 at 18:01; Status DC Labetalol HCl (Normodyne Iv Push) 20 mg 1X STAT IVP Last administered on 06/05/19at 19:20; Start 06/05/19 at 19:10; Stop 06/05/19 at 19:13; Status DC Ondansetron HCl (Zofran) 4 mg PRN Q8HRS PRN IV NAUSEA/VOMITING; Start 06/05/19 at 19:30; Stop 06/06/19 at 19:29; Status DC Fentanyl Citrate (Fentanyl 2ml Vial) 50 mcg PRN Q1HR PRN IV PAIN; Start 06/05/19 at 19:30; Stop 06/06/19 at 19:29; Status DC Labetalol HCl (Normodyne Iv Push) 20 mg PRN Q6HRS PRN IVP HYPERTENSION Last administered on 06/07/19at 23:35; Start 06/05/19 at 19:30 Losartan Potassium (Cozaar) 100 mg 1X ONCE PO Last administered on 06/05/19at 21:38; Start 06/05/19 at 21:30; Stop 06/05/19 at 21:31; Status DC Nitroglycerin/ Dextrose 250 ml @ 0 mls/hr 1X ONCE IV Last administered on 06/05/19at 21:41; Start 06/05/19 at 21:30; Stop 06/05/19 at 21:31; Status DC Nitroglycerin/ Dextrose 250 ml @ 1.5 mls/hr CONT PRN IV SEE I/O RECORD; Start 06/05/19 at 22:30; Stop 06/06/19 at 02:17; Status DC Acetaminophen (Tylenol) 650 mg PRN Q4HRS PRN PO HEADACHE Last administered on 06/10/19at 00:08; Start 06/05/19 at 23:00 Hydrochlorothiazide (Hydrodiuril) 25 mg DAILY PO Last administered on at 10:57; Start 06/06/19 at 09:00; Stop 06/08/19 at 14:44; Status DC Metoprolol Succinate (Toprol Xl) 100 mg DAILY PO Last administered on 06/07/19at 08:55; Start 06/06/19 at 09:00; Stop 06/07/19 at 10:04; Status DC Losartan Potassium (Cozaar) 100 mg DAILY PO Last administered on 06/10/19at 08:33; Start 06/06/19 at 09:00 Nicardipine HCl 50 mg/Sodium Chloride 250 ml @ 25 mls/hr CONT PRN IV SEE I/O RECORD Last administered on 06/06/19 02:15; Start 06/06/19 at 02:00 Albuterol Sulfate (Ventolin Neb Soln) 2.5 mg PRN Q6HRS PRN INH SHORTNESS OF BREATH Last administered on 06/10/19 00:31; Start 06/06/19 at 15:15 Atorvastatin Calcium (Lipitor) 40 mg HS PO Last administered on 06/09/19at 21:48; Start 06/06/19 at 21:00 Calcium Acetate (Phoslo) 667 mg BIDWMEALS PO Last administered on 06/10/19 08:33; Start 06/06/19 at 17:00 Furosemide (Lasix) 40 mg BID92 PO Last administered on 06/08/19at 15:17; Start 06/06/19 at 15:45; Stop 06/09/19 at 12:51; Status DC Hydroxychloroquine Sulfate (Plaquenil) 200 mg DAILY PO Last administered on 06/10/19 08:33; Start 06/07/19 at 09:00 Pantoprazole Sodium (Protonix) 40 mg DAILYAC PO Last administered on 06/10/19 08:34; Start 06/07/19 at 07:30 Rivaroxaban (Xarelto) 10 mg DAILY PO Last administered on 06/10/19 08:32; Start 06/07/19 at 09:00 Non-Formulary Medication (Budesonide/ Formoterol Fumarate (Symbicort 160-4.5 Mcg Inhaler)) 1 puff BID IH ; Start 06/06/19 at 21:00; Stop 06/06/19 at 15:27; Status DC Multivitamins (Thera M Plus) 1 tab DAILY PO Last administered on 06/10/19 08:38; Start 06/07/19 at 09:00 Potassium Chloride (Klor-Con) 20 meq DAILYWBKFT PO Last administered on 06/10/19at 08:32; Start 06/07/19 at 08:00 Non-Formulary Medication (Tiotropium [place] (Spiriva)) 2 inh DAILY IH ; Start 06/07/19 at 09:00; Stop 06/06/19 at 15:28; Status DC Budesonide (Pulmicort) 0.5 mg RTBID NEB Last administered on 06/10/19at 07:44; Start 06/06/19 at 20:00 Albuterol Sulfate (Ventolin Neb Soln) 2.5 mg RTQID NEB ; Start 06/06/19 at 16:00; Stop 06/06/19 at 15:35; Status DC Albuterol/ Ipratropium (Duoneb) 3 ml RTQID NEB Last administered on 06/10/19at 11:26; Start 06/06/19 at 16:00 Isosorbide Mononitrate (Imdur) 60 mg DAILY PO Last administered on 06/08/19at 08:55; Start 06/07/19 at 09:00; Stop 06/08/19 at 14:44; Status DC Hydralazine HCl (Apresoline Inj) 10 mg 1X ONCE IVP Last administered on 06/07/19at 01:44; Start 06/07/19 at 02:00; Stop 06/07/19 at 02:01; Status DC Sodium Chloride 1,000 ml @ 100 mls/hr Q10H ONCE IV Last administered on 06/07/19at 09:45; Start 06/07/19 at 09:45; Stop 06/07/19 at 09:55; Status DC Sodium Chloride 1,000 ml @ 100 mls/hr Q10H IV Last administered on 06/07/19at 11:28; Start 06/07/19 at 09:52; Stop 06/07/19 at 19:51; Status DC Labetalol HCl (Trandate) 200 mg BID PO Last administered on 06/09/19at 09:10; Start 06/07/19 at 10:15; Stop 06/09/19 at 14:39; Status DC Hydralazine HCl (Apresoline Inj) 10 mg 1X ONCE IVP Last administered on 06/07/19at 12:48; Start 06/07/19 at 12:45; Stop 06/07/19 at 12:46; Status DC Amlodipine Besylate (Norvasc) 5 mg 1X ONCE PO Last administered on 06/07/19at 12:49; Start 06/07/19 at 12:45; Stop 06/07/19 at 12:46; Status DC Iodixanol (Visipaque 320) 100 ml STK-MED ONCE .ROUTE ; Start 06/07/19 at 15:05; Stop 06/07/19 at 15:06; Status DC Lidocaine HCl (Xylocaine-Mpf 1% 2ml Vial) 2 ml STK-MED ONCE .ROUTE ; Start 06/07/19 at 15:06; Stop 06/07/19 at 15:06; Status DC Heparin Sodium/ Sodium Chloride 500 ml @ As Directed STK-MED ONCE .ROUTE ; Start 06/07/19 at 15:06; Stop 06/07/19 at 15:06; Status DC Fentanyl Citrate (Fentanyl 2ml Vial) 100 mcg STK-MED ONCE .ROUTE ; Start 06/07/19 at 15:36; Stop 06/07/19 at 15:37; Status DC Midazolam HCl (Versed) 2 mg STK-MED ONCE .ROUTE ; Start 06/07/19 at 15:36; Stop 06/07/19 at 15:37; Status DC Heparin Sodium (Porcine) (Heparin Sodium) 10,000 unit STK-MED ONCE .ROUTE ; Start 06/07/19 at 15:36; Stop 06/07/19 at 15:37; Status DC Verapamil HCl (Verapamil) 5 mg STK-MED ONCE .ROUTE ; Start 06/07/19 at 15:37; Stop 06/07/19 at 15:37; Status DC Nitroglycerin (Nitroglycerin) 200 mcg STK-MED ONCE .ROUTE ; Start 06/07/19 at 15:37; Stop 06/07/19 at 15:37; Status DC Hydralazine HCl (Apresoline Inj) 20 mg STK-MED ONCE .ROUTE ; Start 06/07/19 at 15:47; Stop 06/07/19 at 15:48; Status DC Nitroglycerin (Nitroglycerin) 200 mcg 1X ONCE IART Last administered on 06/07/19at 16:00; Start 06/07/19 at 16:00; Stop 06/07/19 at 16:01; Status DC Verapamil HCl (Verapamil) 2.5 mg 1X ONCE IART Last administered on 06/07/19at 16:00; Start 06/07/19 at 16:00; Stop 06/07/19 at 16:01; Status DC Heparin Sodium (Porcine) (Heparin Sodium) 2,500 unit 1X ONCE IART Last administered on 06/07/19at 16:00; Start 06/07/19 at 16:00; Stop 06/07/19 at 16:01; Status DC Heparin Sodium/ Sodium Chloride (HEPARIN for ARTERIAL LINE FLUSH) 1,000 unit 1X ONCE IART Last administered on 06/07/19at 16:00; Start 06/07/19 at 16:00; Stop 06/07/19 at 16:01; Status DC Midazolam HCl (Versed) 2 mg 1X ONCE IV Last administered on 06/07/19at 16:00; Start 06/07/19 at 16:00; Stop 06/07/19 at 16:01; Status DC Fentanyl Citrate (Fentanyl 2ml Vial) 100 mcg 1X ONCE IV Last administered on 06/07/19 16:00; Start 06/07/19 at 16:00; Stop 06/07/19 at 16:01; Status DC Iodixanol (Visipaque 320) 100 ml 1X ONCE IART Last administered on 06/07/19at 16:00; Start 06/07/19 at 16:00; Stop 06/07/19 at 16:01; Status DC Lidocaine HCl (Xylocaine-Mpf 1% 2ml Vial) 2 ml 1X ONCE INJ Last administered on 06/07/19at 16:00; Start 06/07/19 at 16:00; Stop 06/07/19 at 16:01; Status DC Hydralazine HCl (Apresoline Inj) 10 mg 1X ONCE IVP Last administered on 06/07/19at 16:00; Start 06/07/19 at 16:00; Stop 06/07/19 at 16:01; Status DC Info (CONTRAST GIVEN -- Rx MONITORING) 1 each PRN DAILY PRN MC SEE COMMENTS; Start 06/07/19 at 16:00; Stop 06/09/19 at 15:59; Status DC Sodium Chloride (Normal Saline Flush) 3 ml QSHIFT PRN IV AFTER MEDS AND BLOOD DRAWS; Start 06/07/19 at 16:15 Nitroglycerin (Nitrostat) 0.4 mg PRN Q5MIN PRN SL CHEST PAIN; Start 06/07/19 at 16:15 Labetalol HCl (Normodyne Iv Push) 20 mg STK-MED ONCE IVP ; Start 06/07/19 at 17:17; Stop 06/07/19 at 18:23; Status DC Hydralazine HCl (Apresoline Inj) 10 mg PRN Q4HRS PRN IVP ELEVATED BP, SEE COMMENTS Last administered on 06/09/19at 12:09; Start 06/07/19 at 19:00 Clonidine HCl (Catapres Tts-2) 1 patch WEEKLY TD ; Start 06/14/19 at 09:00 Amlodipine Besylate (Norvasc) 10 mg DAILY PO Last administered on 06/10/19at 08:32; Start 06/08/19 at 15:00 Sodium Chloride 1,000 ml @ 50 mls/hr Q20H IV Last administered on 06/10/19at 08:39; Start 06/09/19 at 12:30 Labetalol HCl (Trandate) 300 mg BID PO Last administered on 06/10/19at 08:34; Start 06/09/19 at 21:00 Info (Anti-Coagulation Monitoring By Pharmacy) 1 each PRN DAILY PRN MC SEE COMMENTS Last administered on 06/10/19at 11:19; Start 06/10/19 at 07:30 Active Scripts Active Reported Hydrochlorothiazide Tablet (Hydrochlorothiazide) 25 Mg Tablet 25 Mg PO DAILY Protonix (Pantoprazole Sodium) 40 Mg Tablet.dr 40 Mg PO DAILYAC Losartan Potassium 100 Mg Tablet 100 Mg PO DAILY Hydroxychloroquine Sulfate 200 Mg Tablet 200 Mg PO DAILY Multivitamins (Multivitamin) 1 Each Tablet 1 Tab PO DAILY Metoprolol Succinate ( Xl ) (Metoprolol Succinate) 100 Mg Tab.er.24h 100 Mg PO DAILY Symbicort 160-4.5 Mcg Inhaler (Budesonide/Formoterol Fumarate) 10.2 Gm Hfa.aer.ad 1 Puff IH BID Spiriva (Tiotropium Elrosa) 18 Mcg Cap.w.dev 2 Inh IH DAILY Proair Hfa Inhaler (Albuterol Sulfate) 8.5 Gm Hfa.aer.ad 1 Puff INH PRN Q6HRS PRN Xarelto (Rivaroxaban) 10 Mg Tablet 10 Mg PO DAILY Atorvastatin Calcium 40 Mg Tablet 40 Mg PO HS Phoslo (Calcium Acetate) 667 Mg Capsule 1 Cap PO BIDWMEALS K-Tab ER (Potassium Chloride) 20 Meq Tablet.er 20 Meq PO DAILY Furosemide 40 Mg Tablet 40 Mg PO [id number] Vitals/I & O Vital Sign - Last 24 Hours 06/09/19 06/09/19 06/09/19 06/09/19 12:09 12:53 14:56 16:00 Temp 97.0 97.0 Pulse 78 80 81 Resp 18 B/P (MAP) 164/94 139/76 (97) 118/62 (80) Pulse Ox 98 O2 Delivery Room Air Room Air Room Air 06/09/19 06/09/19 06/09/19 06/09/19 19:05 19:24 19:25 20:00 Temp 97.6 97.6 Pulse 84 Resp 20 B/P (MAP) 130/72 (91) Pulse Ox 99 O2 Delivery Room Air Room Air Room Air Room Air 06/09/19 06/09/19 06/10/19 06/10/19 21:49 22:50 00:29 03:25 Temp 97.9 97.9 97.9 97.9 Pulse 84 84 85 Resp 18 18 B/P (MAP) 130/72 146/77 (100) 158/82 (107) Pulse Ox 97 96 O2 Delivery Room Air Room Air Room Air 06/10/19 06/10/19 06/10/19 06/10/19 07:00 07:44 08:00 08:32 Temp 98.8 98.8 Pulse 82 82 Resp 18 B/P (MAP) 144/78 (100) 144/78 Pulse Ox 96 97 O2 Delivery Room Air Room Air Room Air 06/10/19 06/10/19 06/10/19 06/10/19 08:33 08:34 11:03 11:26 Temp 97.6 97.6 Pulse 82 82 77 Resp 16 B/P (MAP) 144/78 144/78 133/72 (92) Pulse Ox 98 99 O2 Delivery Room Air Room Air Intake and Output 06/09/19 06/09/19 06/10/19 15:00 23:00 07:00 Intake Total 200 ml 200 ml 300 ml Output Total 150 ml 200 ml Balance 50 ml 200 ml [address] head, 06/05: No focal parenchymal lesion or hemorrhage is identified. There is no midline shift or sulcal effacement. Patchy hypodensities within the periventricular and subcortical white matter likely representing small vessel ischemic change. No acute vascular territory infarction is identified. Holm-white distinction is preserved. The ventricular system is within normal limits without compression hydrocephalus. The basal cisterns are well maintained. The visualized portions of the paranasal sinuses and mastoid air cells are well-pneumatized. No acute fractures. IMPRESSION: Findings a small vessel ischemic change, technically age indeterminate without prior imaging for comparison. CAMILA LANDRY MD Jun 10, 2019 11:47
--- NOTE | 2019-06-10 11:53 | NUR ---
SS following up with discharge planning. Pt is currently on room air but having increased confusion today. PT/OT ordered for evaluation and recommendations. SS will continue to follow for discharge planning.
--- NOTE | 2019-06-10 13:05 | PDOC ---
XIANG GRAFF INSPECTOR RECEIVING 06/10/19 1305: CARDIO Progress Notes Date and Time Date of Service 06/10/19 Time of Evaluation 1300 Subjective Subjective: No Chest Pain, No shortness of breath Vitals Vitals Vital Signs Date Time Temp Pulse Resp B/P (MAP) Pulse Ox O2 Delivery O2 Flow Rate FiO2 06/10/19 11:26 99 Room Air 06/10/19 11:03 97.6 77 16 133/72 (92) 97.6 06/09/19 08:00 2.0 Weight Weight [ ] Input and Output Intake and Output Intake and Output 06/10/19 07:00 Intake Total 700 ml Output Total 350 ml Balance 350 ml Intake Oral 700 ml Output Urine Total 350 ml # Voids 2 Laboratory Labs Laboratory Tests Test 06/10/19 03:25 White Blood Count 6.0 x10^3/uL (4.0-11.0) Red Blood Count 2.83 x10^6/uL (3.50-5.40) Hemoglobin 8.6 g/dL (12.0-15.5) Hematocrit 26.0 % (36.0-47.0) Mean Corpuscular Volume 92 fL (79-100) Mean Corpuscular Hemoglobin 30 pg (25-35) Mean Corpuscular Hemoglobin Concent 33 g/dL (31-37) Red Cell Distribution Width 17.0 % (11.5-14.5) Platelet Count 166 x10^3/uL (140-400) Neutrophils (%) (Auto) 69 % (31-73) Lymphocytes (%) (Auto) 20 % (24-48) Monocytes (%) (Auto) 8 % (0-9) Eosinophils (%) (Auto) 3 % (0-3) Basophils (%) (Auto) 0 % (0-3) Neutrophils # (Auto) 4.2 x10^3/uL (1.8-7.7) Lymphocytes # (Auto) 1.2 x10^3/uL (1.0-4.8) Monocytes # (Auto) 0.5 x10^3/uL (0.0-1.1) Eosinophils # (Auto) 0.2 x10^3/uL (0.0-0.7) Basophils # (Auto) 0.0 x10^3/uL (0.0-0.2) Sodium Level 143 mmol/L (136-145) Potassium Level 4.2 mmol/L (3.5-5.1) Chloride Level 109 mmol/L (98-107) Carbon Dioxide Level 25 mmol/L (21-32) Anion Gap 9 (6-14) Blood Urea Nitrogen 56 mg/dL (7-20) Creatinine 2.6 mg/dL (0.6-1.0) Estimated GFR (Cockcroft-Gault) 22.9 BUN/Creatinine Ratio 22 (6-20) Glucose Level 86 mg/dL (70-99) Calcium Level 8.6 mg/dL (8.5-10.1) Total Bilirubin 0.4 mg/dL (0.2-1.0) Aspartate Amino Transf (AST/SGOT) 15 U/L (15-37) Alanine Aminotransferase (ALT/SGPT) 10 U/L (14-59) Alkaline Phosphatase 63 U/L (46-116) Total Protein 7.1 g/dL (6.4-8.2) Albumin 2.3 g/dL (3.4-5.0) Albumin/Globulin Ratio 0.5 (1.0-1.7) Physical Exam Chest: Symmetric LUNGS: Clear to Auscultation Heart: S1S2, RRR, murmurs (3/6 systolic murmur ) Abdomen: Soft N/T Extremities: No Edema Neurology: alert, oriented Assessment Assessment 1. Chest pain: Most probably secondary to uncontrolled hypertension. Cardiac catheterization did not show any significant coronary artery disease. 2. Acute on chronic diastolic CHF: better compensated following diuresis. LVEF preserved. 3. Mild 4. PAFIB: presently SR. Xarelto for stroke prophylaxis. 5. Malignant HTN: blood pressure now controlled 6. HLP: Statin therapy 7. RIYA on CKD 8. COPD/moderate pulmonary HTN: stable BRENDA RAY MD 06/10/19 1520: CARDIO Progress Notes Assessment Assessment Patient seen and examined. Agree with RADIO REPAIRER DOMESTIC's assessment and plan. Blood pressure much better controlled with changes in anti-hypertensive regimen. Acute on chronic diastolic heart failure better compensated. Cardiac catheterization did not show any significant coronary artery disease. Continue current medications and follow-up in 1 month. XIANG GRAFF APRN Jun 10, 2019 13:05 BRENDA RAY MD Jun 10, 2019 15:20
[2019-06-10 14:56] VITALS: BP 133/79
[2019-06-10 19:50] VITALS: BP 152/81
[2019-06-10] MEDS: ATORVASTATIN CALCIUM 40 MG TABLET. PO SCH (22:12)
[2019-06-10 22:45] VITALS: BP 160/88
[2019-06-11 02:45] VITALS: BP 147/80
[2019-06-11] MEDS: IV NORMAL SALINE 1000ML BAG 1,000 ML IV SCH ×2 (02:55→22:25)
[2019-06-11 07:00] VITALS: BP 149/73
[2019-06-11] MEDS: IPRATRPIUM/ALBUTEROL 0.5/2.5MG 3 ML NEBU. NEB SCH ×4 (07:31→19:36)
[2019-06-11] MEDS: BUDESONIDE 0.5 MG/2 ML NEBU. NEB SCH ×2 (07:34→19:36)
--- NOTE | 2019-06-11 08:20 | PDOC ---
PROGRESS NOTES Chief Complaint Chief Complaint Hypertensive urgency Chest pain, resolved Coronary calcifications per recent CT. LHC showed No significant coronary artery disease on 06/07/19 Headache Findings a small vessel ischemic change, technically age indeterminate without prior imaging for comparison. Lupus/antiphospholipid antibody syndrome with past PE HYPERTENSIVE ENCEPHALOPATHY CKD STAGE 3 No Doppler evidence of greater than 60% stenosis within the renal arteries.Echogenic renal parenchyma, a finding which can be seen with medical renal disease.cr not at goal Small simple appearing renal cysts. Acute on chronic diastolic CHF Valvular insufficiency/diastolic murmur PAFIB - maintaining SR HLP Anemia of chronic disease with prior hx of thrombocytopenia and leukopenia: ruled as an effect from immunosuppression Hx of RA - not sure if she is still on imuran, but claims not being on steroids nor methotrexate anymore. Thyromegaly/nodules: per CT COPD Pulmonary HTN PLAN ADMIT [facility] BED CARDIOLOGY CONSULT serial troponin i Renal duplex. study NOTED TTE neurology consult NEPHROLOGY FOLLOWING CR NOT AT BASELINE 29 min time pt exam, chart review, > 50% of time spent with exam, chart review, pt care coordination History of Present Illness History of Present Illness Ms Caruso is a 58yo F w/ PMHx AFIB, HTN, Hyperlipidemia, COPD, CKD3, Pulmonary embolus, APS/lupus admitted for complains of chest pain. She described the pain to her left chest as punching sensation lasting few seconds intermittent. No frequent dizziness and no palpitations. She has been noted with PAFIB No associated nausea, vomiting. No jaw or arm discomfort. No frequent indigestion. No exertional CP nor HOBSON. Found with BP 213/155, admitted for hypertensive emergency. BP has been coming down over the course of the weekend. Seen by nephrology, cardiology and neurology. 06/10: She is a bit confused about whether she is in a skilled nursing or hospital, states she likes the care she is getting her. She is asking to leave. No further chest pain or shortness of breath. Still a little mentally foggy today, but alert and oriented. She is feeling very weak today. No change in BUN or Cr today. Plan: PT/OT - may need SNF or rehab. Regardless, I have d/w nephrology she needs close monitoring of her renal function. will need bloodwork on 06/14/19 Plan for skilled discharge today or tomorrow Vitals Vitals Vital Signs Date Time Temp Pulse Resp B/P (MAP) Pulse Ox O2 Delivery O2 Flow Rate FiO2 06/11/19 07:30 99 Room Air 06/11/19 07:00 98.1 80 18 149/73 (98) 98.1 Physical Exam General: Alert, Oriented X3, Cooperative, No acute distress Heart: Regular rate, Normal S1, Normal S2, No murmurs, Gallops Lungs: Clear Abdomen: Normal bowel sounds, Soft, No tenderness, No hepatosplenomegaly, No m asses Extremities: No clubbing, No cyanosis, No edema, Normal pulses, No tenderness/swelling Skin: No breakdown, No significant lesion Assessment and Plan Assessmemt and Plan Problems Medical Problems: (1) Acute exacerbation of CHF (congestive heart failure) Status: Acute (2) Chest pain Status: Acute (3) Hypertensive urgency Status: Acute Comment Review of Relevant I have reviewed the following items gregorio (where applicable) has been applied. Labs Laboratory Tests Test 06/10/19 03:25 White Blood Count 6.0 x10^3/uL (4.0-11.0) Red Blood Count 2.83 x10^6/uL (3.50-5.40) Hemoglobin 8.6 g/dL (12.0-15.5) Hematocrit 26.0 % (36.0-47.0) Mean Corpuscular Volume 92 fL (79-100) Mean Corpuscular Hemoglobin 30 pg (25-35) Mean Corpuscular Hemoglobin Concent 33 g/dL (31-37) Red Cell Distribution Width 17.0 % (11.5-14.5) Platelet Count 166 x10^3/uL (140-400) Neutrophils (%) (Auto) 69 % (31-73) Lymphocytes (%) (Auto) 20 % (24-48) Monocytes (%) (Auto) 8 % (0-9) Eosinophils (%) (Auto) 3 % (0-3) Basophils (%) (Auto) 0 % (0-3) Neutrophils # (Auto) 4.2 x10^3/uL (1.8-7.7) Lymphocytes # (Auto) 1.2 x10^3/uL (1.0-4.8) Monocytes # (Auto) 0.5 x10^3/uL (0.0-1.1) Eosinophils # (Auto) 0.2 x10^3/uL (0.0-0.7) Basophils # (Auto) 0.0 x10^3/uL (0.0-0.2) Sodium Level 143 mmol/L (136-145) Potassium Level 4.2 mmol/L (3.5-5.1) Chloride Level 109 mmol/L (98-107) Carbon Dioxide Level 25 mmol/L (21-32) Anion Gap 9 (6-14) Blood Urea Nitrogen 56 mg/dL (7-20) Creatinine 2.6 mg/dL (0.6-1.0) Estimated GFR (Cockcroft-Gault) 22.9 BUN/Creatinine Ratio 22 (6-20) Glucose Level 86 mg/dL (70-99) Calcium Level 8.6 mg/dL (8.5-10.1) Total Bilirubin 0.4 mg/dL (0.2-1.0) Aspartate Amino Transf (AST/SGOT) 15 U/L (15-37) Alanine Aminotransferase (ALT/SGPT) 10 U/L (14-59) Alkaline Phosphatase 63 U/L (46-116) Total Protein 7.1 g/dL (6.4-8.2) Albumin 2.3 g/dL (3.4-5.0) Albumin/Globulin Ratio 0.5 (1.0-1.7) Medications Current Medications Hydralazine HCl (Apresoline Inj) 10 mg 1X ONCE IVP Last administered on 05/15 10/30at 18:30; Start 06/05/19 at 18:00; Stop 06/05/19 at 18:01; Status DC Labetalol HCl (Normodyne Iv Push) 20 mg 1X STAT IVP Last administered on 06/05/19at 19:20; Start 06/05/19 at 19:10; Stop 06/05/19 at 19:13; Status DC Ondansetron HCl (Zofran) 4 mg PRN Q8HRS PRN IV NAUSEA/VOMITING; Start 06/05/19 at 19:30; Stop 06/06/19 at 19:29; Status DC Fentanyl Citrate (Fentanyl 2ml Vial) 50 mcg PRN Q1HR PRN IV PAIN; Start 06/05/19 at 19:30; Stop 06/06/19 at 19:29; Status DC Labetalol HCl (Normodyne Iv Push) 20 mg PRN Q6HRS PRN IVP HYPERTENSION Last administered on 06/07/19 23:35; Start 06/05/19 at 19:30 Losartan Potassium (Cozaar) 100 mg 1X ONCE PO Last administered on 06/05/19at 21:38; Start 06/05/19 at 21:30; Stop 06/05/19 at 21:31; Status DC Nitroglycerin/ Dextrose 250 ml @ 0 mls/hr 1X ONCE IV Last administered on 06/05/19at 21:41; Start 06/05/19 at 21:30; Stop 06/05/19 at 21:31; Status DC Nitroglycerin/ Dextrose 250 ml @ 1.5 mls/hr CONT PRN IV SEE I/O RECORD; Start 06/05/19 at 22:30; Stop 06/06/19 at 02:17; Status DC Acetaminophen (Tylenol) 650 mg PRN Q4HRS PRN PO HEADACHE Last administered on 06/10/19at 22:08; Start 06/05/19 at 23:00 Hydrochlorothiazide (Hydrodiuril) 25 mg DAILY PO Last administered on 06/08/19at 10:57; Start 06/06/19 at 09:00; Stop 06/08/19 at 14:44; Status DC Metoprolol Succinate (Toprol Xl) 100 mg DAILY PO Last administered on 06/07/19 08:55; Start 06/06/19 at 09:00; Stop 06/07/19 at 10:04; Status DC Losartan Potassium (Cozaar) 100 mg DAILY PO Last administered on 06/10/19at 08:33; Start 06/06/19 at 09:00 Nicardipine HCl 50 mg/Sodium Chloride 250 ml @ 25 mls/hr CONT PRN IV SEE I/O RECORD Last administered on 06/06/19at 02:15; Start 06/06/19 at 02:00 Albuterol Sulfate (Ventolin Neb Soln) 2.5 mg PRN Q6HRS PRN INH SHORTNESS OF BREATH Last administered on 06/10/19at 00:31; Start 06/06/19 at 15:15 Atorvastatin Calcium (Lipitor) 40 mg HS PO Last administered on 06/10/19at 22:12; Start 06/06/19 at 21:00 Calcium Acetate (Phoslo) 667 mg BIDWMEALS PO Last administered on 06/10/19at 16:41; Start 06/06/19 at 17:00 Furosemide (Lasix) 40 mg BID92 PO Last administered on 06/08/19at 15:17; Start 06/06/19 at 15:45; Stop 06/09/19 at 12:51; Status DC Hydroxychloroquine Sulfate (Plaquenil) 200 mg DAILY PO Last administered on 06/10/19 08:33; Start 06/07/19 at 09:00 Pantoprazole Sodium (Protonix) 40 mg DAILYAC PO Last administered on 06/10/19 08:34; Start 06/07/19 at 07:30 Rivaroxaban (Xarelto) 10 mg DAILY PO Last administered on 06/10/19 08:32; Start 06/07/19 at 09:00 Non-Formulary Medication (Budesonide/ Formoterol Fumarate (Symbicort 160-4.5 Mcg Inhaler)) 1 puff BID IH ; Start 06/06/19 at 21:00; Stop 06/06/19 at 15:27; Status DC Multivitamins (Thera M Plus) 1 tab DAILY PO Last administered on 06/10/19 08:38; Start 06/07/19 at 09:00 Potassium Chloride (Klor-Con) 20 meq DAILYWBKFT PO Last administered on 06/10/19at 08:32; Start 06/07/19 at 08:00 Non-Formulary Medication (Tiotropium [place] (Spiriva)) 2 inh DAILY IH ; Start 06/07/19 at 09:00; Stop 06/06/19 at 15:28; Status DC Budesonide (Pulmicort) 0.5 mg RTBID NEB Last administered on 06/11/19 07:34; Start 06/06/19 at 20:00 Albuterol Sulfate (Ventolin Neb Soln) 2.5 mg RTQID NEB ; Start 06/06/19 at 16:00; Stop 06/06/19 at 15:35; Status DC Albuterol/ Ipratropium (Duoneb) 3 ml RTQID NEB Last administered on 06/11/19at 07:31; Start 06/06/19 at 16:00 Isosorbide Mononitrate (Imdur) 60 mg DAILY PO Last administered on 06/08/19at 08:55; Start 06/07/19 at 09:00; Stop 06/08/19 at 14:44; Status DC Hydralazine HCl (Apresoline Inj) 10 mg 1X ONCE IVP Last administered on 06/07/19at 01:44; Start 06/07/19 at 02:00; Stop 06/07/19 at 02:01; Status DC Sodium Chloride 1,000 ml @ 100 mls/hr Q10H ONCE IV Last administered on 06/07/19at 09:45; Start 06/07/19 at 09:45; Stop 06/07/19 at 09:55; Status DC Sodium Chloride 1,000 ml @ 100 mls/hr Q10H IV Last administered on 06/07/19at 11:28; Start 06/07/19 at 09:52; Stop 06/07/19 at 19:51; Status DC Labetalol HCl (Trandate) 200 mg BID PO Last administered on 06/09/19at 09:10; Start 06/07/19 at 10:15; Stop 06/09/19 at 14:39; Status DC Hydralazine HCl (Apresoline Inj) 10 mg 1X ONCE IVP Last administered on 06/07/19at 12:48; Start 06/07/19 at 12:45; Stop 06/07/19 at 12:46; Status DC Amlodipine Besylate (Norvasc) 5 mg 1X ONCE PO Last administered on 06/07/19at 12:49; Start 06/07/19 at 12:45; Stop 06/07/19 at 12:46; Status DC Iodixanol (Visipaque 320) 100 ml STK-MED ONCE .ROUTE ; Start 06/07/19 at 15:05; Stop 06/07/19 at 15:06; Status DC Lidocaine HCl (Xylocaine-Mpf 1% 2ml Vial) 2 ml STK-MED ONCE .ROUTE ; Start 06/07/19 at 15:06; Stop 06/07/19 at 15:06; Status DC Heparin Sodium/ Sodium Chloride 500 ml @ As Directed STK-MED ONCE .ROUTE ; Start 06/07/19 at 15:06; Stop 06/07/19 at 15:06; Status DC Fentanyl Citrate (Fentanyl 2ml Vial) 100 mcg STK-MED ONCE .ROUTE ; Start 06/07/19 at 15:36; Stop 06/07/19 at 15:37; Status DC Midazolam HCl (Versed) 2 mg STK-MED ONCE .ROUTE ; Start 06/07/19 at 15:36; Stop 06/07/19 at 15:37; Status DC Heparin Sodium (Porcine) (Heparin Sodium) 10,000 unit STK-MED ONCE .ROUTE ; Start 06/07/19 at 15:36; Stop 06/07/19 at 15:37; Status DC Verapamil HCl (Verapamil) 5 mg STK-MED ONCE .ROUTE ; Start 06/07/19 at 15:37; Stop 06/07/19 at 15:37; Status DC Nitroglycerin (Nitroglycerin) 200 mcg STK-MED ONCE .ROUTE ; Start 06/07/19 at 15:37; Stop 06/07/19 at 15:37; Status DC Hydralazine HCl (Apresoline Inj) 20 mg STK-MED ONCE .ROUTE ; Start 06/07/19 at 15:47; Stop 06/07/19 at 15:48; Status DC Nitroglycerin (Nitroglycerin) 200 mcg 1X ONCE IART Last administered on 06/07/19at 16:00; Start 06/07/19 at 16:00; Stop 06/07/19 at 16:01; Status DC Verapamil HCl (Verapamil) 2.5 mg 1X ONCE IART Last administered on 06/07/19at 16:00; Start 06/07/19 at 16:00; Stop 06/07/19 at 16:01; Status DC Heparin Sodium (Porcine) (Heparin Sodium) 2,500 unit 1X ONCE IART Last administered on 06/07/19at 16:00; Start 06/07/19 at 16:00; Stop 06/07/19 at 16:01; Status DC Heparin Sodium/ Sodium Chloride (HEPARIN for ARTERIAL LINE FLUSH) 1,000 unit 1X ONCE IART Last administered on 06/07/19at 16:00; Start 06/07/19 at 16:00; Stop 06/07/19 at 16:01; Status DC Midazolam HCl (Versed) 2 mg 1X ONCE IV Last administered on 06/07/19at 16:00; Start 06/07/19 at 16:00; Stop 06/07/19 at 16:01; Status DC Fentanyl Citrate (Fentanyl 2ml Vial) 100 mcg 1X ONCE IV Last administered on 06/07/19at 16:00; Start 06/07/19 at 16:00; Stop 06/07/19 at 16:01; Status DC Iodixanol (Visipaque 320) 100 ml 1X ONCE IART Last administered on 06/07/19at 16:00; Start 06/07/19 at 16:00; Stop 06/07/19 at 16:01; Status DC Lidocaine HCl (Xylocaine-Mpf 1% 2ml Vial) 2 ml 1X ONCE INJ Last administered on 06/07/19at 16:00; Start 06/07/19 at 16:00; Stop 06/07/19 at 16:01; Status DC Hydralazine HCl (Apresoline Inj) 10 mg 1X ONCE IVP Last administered on 06/07/19at 16:00; Start 06/07/19 at 16:00; Stop 06/07/19 at 16:01; Status DC Info (CONTRAST GIVEN -- Rx MONITORING) 1 each PRN DAILY PRN MC SEE COMMENTS; Start 06/07/19 at 16:00; Stop 06/09/19 at 15:59; Status DC Sodium Chloride (Normal Saline Flush) 3 ml QSHIFT PRN IV AFTER MEDS AND BLOOD DRAWS; Start 06/07/19 at 16:15 Nitroglycerin (Nitrostat) 0.4 mg PRN Q5MIN PRN SL CHEST PAIN; Start 06/07/19 at 16:15 Labetalol HCl (Normodyne Iv Push) 20 mg STK-MED ONCE IVP ; Start 06/07/19 at 17:17; Stop 06/07/19 at 18:23; Status DC Hydralazine HCl (Apresoline Inj) 10 mg PRN Q4HRS PRN IVP ELEVATED BP, SEE COMMENTS Last administered on 06/09/19at 12:09; Start 06/07/19 at 19:00 Clonidine HCl (Catapres Tts-2) 1 patch WEEKLY TD ; Start 06/14/19 at 09:00 Amlodipine Besylate (Norvasc) 10 mg DAILY PO Last administered on 06/10/19at 08:32; Start 06/08/19 at 15:00 Sodium Chloride 1,000 ml @ 50 mls/hr Q20H IV Last administered on 06/11/19at 02:55; Start 06/09/19 at 12:30 Labetalol HCl (Trandate) 300 mg BID PO Last administered on 06/10/19at 22:08; Start 06/09/19 at 21:00 Info (Anti-Coagulation Monitoring By Pharmacy) 1 each PRN DAILY PRN MC SEE COMMENTS Last administered on 06/10/19at 11:19; Start 06/10/19 at 07:30 Active Scripts Active Reported Hydrochlorothiazide Tablet (Hydrochlorothiazide) 25 Mg Tablet 25 Mg PO DAILY Protonix (Pantoprazole Sodium) 40 Mg Tablet.dr 40 Mg PO DAILYAC Losartan Potassium 100 Mg Tablet 100 Mg PO DAILY Hydroxychloroquine Sulfate 200 Mg Tablet 200 Mg PO DAILY Multivitamins (Multivitamin) 1 Each Tablet 1 Tab PO DAILY Metoprolol Succinate ( Xl ) (Metoprolol Succinate) 100 Mg Tab.er.24h 100 Mg PO DAILY Symbicort 160-4.5 Mcg Inhaler (Budesonide/Formoterol Fumarate) 10.2 Gm Hfa.aer.ad 1 Puff IH BID Spiriva (Tiotropium [place]) 18 Mcg Cap.w.dev 2 Inh IH DAILY Proair Hfa Inhaler (Albuterol Sulfate) 8.5 Gm Hfa.aer.ad 1 Puff INH PRN Q6HRS PRN Xarelto (Rivaroxaban) 10 Mg Tablet 10 Mg PO DAILY Atorvastatin Calcium 40 Mg Tablet 40 Mg PO HS Phoslo (Calcium Acetate) 667 Mg Capsule 1 Cap PO BIDWMEALS K-Tab ER (Potassium Chloride) 20 Meq Tablet.er 20 Meq PO DAILY Furosemide 40 Mg Tablet 40 Mg PO [id number] Vitals/I & O Vital Sign - Last 24 Hours 06/10/19 06/10/19 06/10/19 06/10/19 08:32 08:33 08:34 11:03 Temp 97.6 97.6 Pulse 82 82 82 77 Resp 16 B/P (MAP) 144/78 144/78 144/78 133/72 (92) Pulse Ox 98 O2 Delivery Room Air 06/10/19 06/10/19 06/10/19 06/10/19 11:26 14:56 15:39 19:45 Temp 98.2 98.2 Pulse 78 Resp 16 B/P (MAP) 133/79 (97) Pulse Ox 99 99 99 98 O2 Delivery Room Air Room Air Room Air Room Air 06/10/19 06/10/19 06/10/19 06/10/19 19:50 20:00 22:08 22:45 Temp 97.7 98.3 97.7 98.3 Pulse 91 91 87 Resp 20 18 B/P (MAP) 152/81 (104) 152/81 160/88 (112) Pulse Ox 98 97 O2 Delivery Room Air Room Air Room Air 06/11/19 06/11/19 06/11/19 02:45 07:00 07:30 Temp 98.1 98.1 98.1 98.1 Pulse 84 80 Resp 20 18 B/P (MAP) 147/80 (102) 149/73 (98) Pulse Ox 97 96 99 O2 Delivery Room Air Room Air Room Air Intake and Output 06/10/19 06/10/19 06/11/19 15:00 23:00 07:00 Intake Total 480 ml 240 ml 840 ml Output Total 200 ml 200 ml Balance 280 ml 40 ml 840 ml PAMELA HDZ MD Jun 11, 2019 08:20
[2019-06-11] MEDS: PANTOPRAZOLE 40 MG TABLET.DR. PO SCH (08:50)
[2019-06-11] MEDS: MULTIVITAMIN with MINERAL TABLET. PO SCH (08:50)
[2019-06-11] MEDS: CALCIUM ACETATE 667 MG CAPSULE PO SCH ×2 (08:50→17:38)
[2019-06-11] MEDS: POTASSIUM CHLORIDE 20 MEQ TABLET.ER. PO SCH (08:51)
[2019-06-11] MEDS: RIVAROXABAN 10 MG TABLET. PO SCH (08:51)
[2019-06-11] MEDS: amLODIPine BESYLATE 10 MG TABLET PO SCH (08:51)
[2019-06-11] MEDS: LABETALOL HCL 200 MG TABLET PO SCH ×2 (08:51→22:27)
[2019-06-11] MEDS: HYDROXYCHLOROQUINE 200 MG TABLET PO SCH (08:51)
[2019-06-11] MEDS: LOSARTAN POTASSIUM 50 MG TABLET. PO SCH (08:52)
--- NOTE | 2019-06-11 09:53 | PDOC ---
SUBJECTIVE ROS Stable, No CP , No N/V, states good uop, appetite good OBJECTIVE Vital Signs Vital Signs Date Time Temp Pulse Resp B/P (MAP) Pulse Ox O2 Delivery O2 Flow Rate FiO2 06/11/19 08:52 80 149/73 06/11/19 08:00 Room Air 06/11/19 07:30 99 06/11/19 07:00 98.1 18 98.1 I & 0 Intake and Output 06/11/19 07:00 Intake Total 1560 ml Output Total 400 ml Balance 1160 ml Intake Oral 1560 ml Output Urine Total 400 ml # Voids 5 PHYSICAL EXAM Physical Exam General: No acute distress HEENT: Atraumatic, Mucous membr. 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 Hold ARB , supportive care, Monitor, Strict I/O CKD stage 3-Follows with our office, seen by me in sep and most recent appt with PRODUCTION INTERN in Apr at presentation at baseline renal function Increased risk of ALIZA dw Pt , Recommended ALIZA prophylaxis ALIZA with IVF, Hold Diuretics Chest Pain s/p cardiac Cath- Normal Membranous Nephropathy Dx in post Bx Proteinuria at Dx was 8 gm, improved most recent Pr/Cr <200 On ARB - may have to hold due to worsening renal function SLE- Use to follow with Rheumatology (Dr Hill) ,was on Imuran Currently only on Hydroxychloroquine Not seen for long time due to the financial constraints HTN- On antihyprtensives Optimization per cardiology, recommend holding Losartan for short duration due to worsening renal function Anemia- Most recent op Hgb [address] Baez as OP and was on Aranesp - none in past few months per patient COMMENT/RELEVANT DATA Meds Current Medications Medications (Trade) Dose Ordered Sig/Blaine Start Time Stop Time Status Last Admin Dose Admin Acetaminophen (Tylenol) 650 mg PRN Q4HRS PRN 06/05/19 23:00 06/10/19 22:08 650 MG Albuterol Sulfate (Ventolin Neb Soln) 2.5 mg RTQID 06/06/19 16:00 06/06/19 15:35 DC Albuterol/ Ipratropium (Duoneb) 3 ml RTQID 06/06/19 16:00 06/11/19 07:31 3 ML Amlodipine Besylate (Norvasc) 10 mg DAILY 06/08/19 15:00 06/11/19 08:51 10 MG Atorvastatin Calcium (Lipitor) 40 mg HS 06/06/19 21:00 06/10/19 22:12 40 MG Budesonide (Pulmicort) 0.5 mg RTBID 06/06/19 20:00 06/11/19 07:34 0.5 MG Calcium Acetate (Phoslo) 667 mg BIDWMEALS 06/06/19 17:00 06/11/19 08:50 667 MG Clonidine HCl (Catapres Tts-2) 1 patch WEEKLY 06/14/19 09:00 Fentanyl Citrate (Fentanyl 2ml Vial) 100 mcg 1X ONCE 06/07/19 16:00 06/07/19 16:01 DC 06/07/19 16:00 50 MCG Furosemide (Lasix) 40 mg BID92 06/06/19 15:45 06/09/19 12:51 DC 06/08/19 15:17 40 MG Heparin Sodium (Porcine) (Heparin Sodium) 2,500 unit 1X ONCE 06/07/19 16:00 06/07/19 16:01 DC 06/07/19 16:00 2,500 UNIT Heparin Sodium/ Sodium Chloride (HEPARIN for ARTERIAL LINE FLUSH) 1,000 unit 1X ONCE 06/07/19 16:00 06/07/19 16:01 DC 06/07/19 16:00 1,000 UNIT Hydralazine HCl (Apresoline Inj) 10 mg PRN Q4HRS PRN 06/07/19 19:00 06/09/19 12:09 10 MG Hydrochlorothiazide (Hydrodiuril) 25 mg DAILY 06/06/19 09:00 06/08/19 14:44 DC 06/08/19 10:57 25 MG Hydroxychloroquine Sulfate (Plaquenil) 200 mg DAILY 06/07/19 09:00 06/11/19 08:51 200 MG Info (Anti-Coagulation Monitoring By Pharmacy) 1 each PRN DAILY PRN 06/10/19 07:30 06/10/19 11:19 1 EACH Info (CONTRAST GIVEN -- Rx MONITORING) 1 each PRN DAILY PRN 06/07/19 16:00 06/09/19 15:59 DC Iodixanol (Visipaque 320) 100 ml 1X ONCE 06/07/19 16:00 06/07/19 16:01 DC 06/07/19 16:00 59 ML Isosorbide Mononitrate (Imdur) 60 mg DAILY 06/07/19 09:00 06/08/19 14:44 DC 06/08/19 08:55 60 MG Labetalol HCl (Normodyne Iv Push) 20 mg STK-MED ONCE 06/07/19 17:17 06/07/19 18:23 DC Labetalol HCl (Trandate) 300 mg BID 06/09/19 21:00 06/11/19 08:51 300 MG Lidocaine HCl (Xylocaine-Mpf 1% 2ml Vial) 2 ml 1X ONCE 06/07/19 16:00 06/07/19 16:01 DC 06/07/19 16:00 1 ML Losartan Potassium (Cozaar) 100 mg DAILY 06/06/19 09:00 06/11/19 08:52 100 MG Metoprolol Succinate (Toprol Xl) 100 mg DAILY 06/06/19 09:00 06/07/19 10:04 DC 06/07/19 08:55 100 MG Midazolam HCl (Versed) 2 mg 1X ONCE 06/07/19 16:00 06/07/19 16:01 DC 06/07/19 16:00 1 MG Multivitamins (Thera M Plus) 1 tab DAILY 06/07/19 09:00 06/11/19 08:50 1 TAB Nicardipine HCl 50 mg/Sodium Chloride 250 ml @ 25 mls/hr CONT PRN 06/06/19 02:00 06/06/19 02:15 25 MLS/HR Nitroglycerin (Nitroglycerin) 200 mcg 1X ONCE 06/07/19 16:00 06/07/19 16:01 DC 06/07/19 16:00 200 MCG Nitroglycerin (Nitrostat) 0.4 mg PRN Q5MIN PRN 06/07/19 16:15 Nitroglycerin/ Dextrose 250 ml @ 1.5 mls/hr CONT PRN 06/05/19 22:30 06/06/19 02:17 DC Non-Formulary Medication (Budesonide/ Formoterol Fumarate (Symbicort 160-4.5 Mcg Inhaler)) 1 puff BID 06/06/19 21:00 06/06/19 15:27 DC Non-Formulary Medication (Tiotropium [place] (Spiriva)) 2 inh DAILY 06/07/19 09:00 06/06/19 15:28 DC Ondansetron HCl (Zofran) 4 mg PRN Q8HRS PRN 06/05/19 19:30 06/06/19 19:29 DC Pantoprazole Sodium (Protonix) 40 mg DAILYAC 06/07/19 07:30 06/11/19 08:50 40 MG Potassium Chloride (Klor-Con) 20 meq DAILYWBKFT 06/07/19 08:00 06/11/19 08:51 20 MEQ Rivaroxaban (Xarelto) 10 mg DAILY 06/07/19 09:00 06/11/19 08:51 10 MG Sodium Chloride 1,000 ml @ 50 mls/hr Q20H 06/09/19 12:30 06/11/19 02:55 50 MLS/HR Sodium Chloride (Normal Saline Flush) 3 ml QSHIFT PRN 06/07/19 16:15 Verapamil HCl (Verapamil) 2.5 mg 1X ONCE 06/07/19 16:00 06/07/19 16:01 DC 06/07/19 16:00 2.5 MG Results All relevant outside records, renal labs, imaging studies, telemetry/EKG's were reviewed. SHEILA CREWS MD Jun 11, 2019 09:53
[2019-06-11 11:13] VITALS: BP 176/97
--- NOTE | 2019-06-11 11:18 | PDOC ---
CARDIO Progress Notes Date and Time Date of Service 06/11/2019 Time of Evaluation 1100 Subjective Subjective: No Chest Pain, No shortness of breath, No Palpitations Vitals Vitals Vital Signs Date Time Temp Pulse Resp B/P (MAP) Pulse Ox O2 Delivery O2 Flow Rate FiO2 06/11/19 08:52 80 149/73 06/11/19 08:00 Room Air 06/11/19 07:30 99 06/11/19 07:00 98.1 18 98.1 Weight Weight [ ] Input and Output Intake and Output Intake and Output 06/11/19 07:00 Intake Total 1560 ml Output Total 400 ml Balance 1160 ml Intake Oral 1560 ml Output Urine Total 400 ml # Voids 5 Physical Exam HEENT: Neck Supple W Full Motion Chest: Symmetric LUNGS: Clear to Auscultation Heart: S1S2, RRR (SR), murmurs (3/6 systolic murmur ) Abdomen: Soft N/T Extremities: No Calf Tenderness, Other (trace LE edema) Neurology: alert, oriented, follow commands Assessment Assessment 1. Chest pain: Most probably secondary to uncontrolled hypertension. LHC did not show any significant coronary artery disease. 2. Acute on chronic diastolic CHF: compensated 3. Mild 4. PAFIB: maintaining SR. Xarelto for stroke prophylaxis. 5. Malignant HTN: labile episodes 6. HLP: Statin therapy 7. RIYA on CKD 8. COPD/moderate pulmonary HTN: stable 9. Encephalopathy: normal mentation today. per PCP 10. Hx of lupus Recommendations 1. Off losartan and lasix due to RIYA. 2. Continue labetolol, norvasc and will add hydralazine. Catapress also in place. 3. BMP today. 4. Follow up on July 17 at 1:45 PM with CURTIS Delatorre [employer] Jun 11, 2019 11:18
--- NOTE | 2019-06-11 11:42 | PDOC ---
PROGRESS NOTES Assessment Problems Medical Problems: (1) Acute exacerbation of CHF (congestive heart failure) Status: Acute (2) Chest pain Status: Acute (3) Hypertensive urgency Status: Acute Hypertensive encephalopathy. Headaches, resolved. Medical issues:.palpitations, atrial fibrillation, possible lupus, hyperlipidemia, hypertension, chronic obstructive pulmonary disease, renal failure with worsening creatinine, possible pulmonary infiltrate Plan Treat medical diseases. Neurologically stable for discharge Subjective No complaints, wants to go home. Nurse reports the patient has some sundowning Objective Vital Signs Date Time Temp Pulse Resp B/P (MAP) Pulse Ox O2 Delivery O2 Flow Rate FiO2 06/11/19 11:13 98.0 80 20 176/97 (123) 95 Room Air 98.0 Intake and Output 06/11/19 06:59 Intake Total 1560 ml Output Total 400 ml Balance 1160 ml Intake Oral 1560 ml Output Urine Total 400 ml # Voids 5 PHYSICAL EXAM Alert. Oriented to time, place and person. PERRL. EOMI. CN: no focal findings. Muscle tone: normal. Muscle strength: 5/5 DTR: 2+ Plantar reflex: flexor Gait: not examined in bed. Sensory exam: no abnormal findings. No cerebellar signs elicited. Review of Relevant I have reviewed the following items gregorio (where applicable) has been applied. Labs Laboratory Tests Test 06/10/19 03:25 White Blood Count 6.0 x10^3/uL (4.0-11.0) Red Blood Count 2.83 x10^6/uL (3.50-5.40) Hemoglobin 8.6 g/dL (12.0-15.5) Hematocrit 26.0 % (36.0-47.0) Mean Corpuscular Volume 92 fL (79-100) Mean Corpuscular Hemoglobin 30 pg (25-35) Mean Corpuscular Hemoglobin Concent 33 g/dL (31-37) Red Cell Distribution Width 17.0 % (11.5-14.5) Platelet Count 166 x10^3/uL (140-400) Neutrophils (%) (Auto) 69 % (31-73) Lymphocytes (%) (Auto) 20 % (24-48) Monocytes (%) (Auto) 8 % (0-9) Eosinophils (%) (Auto) 3 % (0-3) Basophils (%) (Auto) 0 % (0-3) Neutrophils # (Auto) 4.2 x10^3/uL (1.8-7.7) Lymphocytes # (Auto) 1.2 x10^3/uL (1.0-4.8) Monocytes # (Auto) 0.5 x10^3/uL (0.0-1.1) Eosinophils # (Auto) 0.2 x10^3/uL (0.0-0.7) Basophils # (Auto) 0.0 x10^3/uL (0.0-0.2) Sodium Level 143 mmol/L (136-145) Potassium Level 4.2 mmol/L (3.5-5.1) Chloride Level 109 mmol/L (98-107) Carbon Dioxide Level 25 mmol/L (21-32) Anion Gap 9 (6-14) Blood Urea Nitrogen 56 mg/dL (7-20) Creatinine 2.6 mg/dL (0.6-1.0) Estimated GFR (Cockcroft-Gault) 22.9 BUN/Creatinine Ratio 22 (6-20) Glucose Level 86 mg/dL (70-99) Calcium Level 8.6 mg/dL (8.5-10.1) Total Bilirubin 0.4 mg/dL (0.2-1.0) Aspartate Amino Transf (AST/SGOT) 15 U/L (15-37) Alanine Aminotransferase (ALT/SGPT) 10 U/L (14-59) Alkaline Phosphatase 63 U/L (46-116) Total Protein 7.1 g/dL (6.4-8.2) Albumin 2.3 g/dL (3.4-5.0) Albumin/Globulin Ratio 0.5 (1.0-1.7) Medications Current Medications Hydralazine HCl (Apresoline Inj) 10 mg 1X ONCE IVP Last administered on 06/05/19at 18:30; Start 06/05/19 at 18:00; Stop 06/05/19 at 18:01; Status DC Labetalol HCl (Normodyne Iv Push) 20 mg 1X STAT IVP Last administered on 06/05/19at 19:20; Start 06/05/19 at 19:10; Stop 06/05/19 at 19:13; Status DC Ondansetron HCl (Zofran) 4 mg PRN Q8HRS PRN IV NAUSEA/VOMITING; Start 06/05/19 at 19:30; Stop 06/06/19 at 19:29; Status DC Fentanyl Citrate (Fentanyl 2ml Vial) 50 mcg PRN Q1HR PRN IV PAIN; Start 06/05/19 at 19:30; Stop 06/06/19 at 19:29; Status DC Labetalol HCl (Normodyne Iv Push) 20 mg PRN Q6HRS PRN IVP HYPERTENSION Last administered on 06/07/19at 23:35; Start 06/05/19 at 19:30 Losartan Potassium (Cozaar) 100 mg 1X ONCE PO Last administered on 06/05/19at 21:38; Start 06/05/19 at 21:30; Stop 06/05/19 at 21:31; Status DC Nitroglycerin/ Dextrose 250 ml @ 0 mls/hr 1X ONCE IV Last administered on 06/05/19at 21:41; Start 06/05/19 at 21:30; Stop 06/05/19 at 21:31; Status DC Nitroglycerin/ Dextrose 250 ml @ 1.5 mls/hr CONT PRN IV SEE I/O RECORD; Start 06/05/19 at 22:30; Stop 06/06/19 at 02:17; Status DC Acetaminophen (Tylenol) 650 mg PRN Q4HRS PRN PO HEADACHE Last administered on 06/10/19at 22:08; Start 06/05/19 at 23:00 Hydrochlorothiazide (Hydrodiuril) 25 mg DAILY PO Last administered on at 10:57; Start 06/06/19 at 09:00; Stop 06/08/19 at 14:44; Status DC Metoprolol Succinate (Toprol Xl) 100 mg DAILY PO Last administered on 06/07/19at 08:55; Start 06/06/19 at 09:00; Stop 06/07/19 at 10:04; Status DC Losartan Potassium (Cozaar) 100 mg DAILY PO Last administered on 06/11/19at 08:52; Start 06/06/19 at 09:00 Nicardipine HCl 50 mg/Sodium Chloride 250 ml @ 25 mls/hr CONT PRN IV SEE I/O RECORD Last administered on 06/06/19at 02:15; Start 06/06/19 at 02:00 Albuterol Sulfate (Ventolin Neb Soln) 2.5 mg PRN Q6HRS PRN INH SHORTNESS OF BREATH Last administered on 06/10/19 00:31; Start 06/06/19 at 15:15 Atorvastatin Calcium (Lipitor) 40 mg HS PO Last administered on 06/10/19at 22:12; Start 06/06/19 at 21:00 Calcium Acetate (Phoslo) 667 mg BIDWMEALS PO Last administered on 06/11/19 08:50; Start 06/06/19 at 17:00 Furosemide (Lasix) 40 mg BID92 PO Last administered on 06/08/19 15:17; Start 06/06/19 at 15:45; Stop 06/09/19 at 12:51; Status DC Hydroxychloroquine Sulfate (Plaquenil) 200 mg DAILY PO Last administered on 06/11/19 08:51; Start 06/07/19 at 09:00 Pantoprazole Sodium (Protonix) 40 mg DAILYAC PO Last administered on 06/11/19 08:50; Start 06/07/19 at 07:30 Rivaroxaban (Xarelto) 10 mg DAILY PO Last administered on 06/11/19 08:51; Start 06/07/19 at 09:00 Non-Formulary Medication (Budesonide/ Formoterol Fumarate (Symbicort 160-4.5 Mcg Inhaler)) 1 puff BID IH ; Start 06/06/19 at 21:00; Stop 06/06/19 at 15:27; Status DC Multivitamins (Thera M Plus) 1 tab DAILY PO Last administered on 06/11/19 08:50; Start 06/07/19 at 09:00 Potassium Chloride (Klor-Con) 20 meq DAILYWBKFT PO Last administered on 06/11/19 08:51; Start 06/07/19 at 08:00 Non-Formulary Medication (Tiotropium [place] (Spiriva)) 2 inh DAILY IH ; Start 06/07/19 at 09:00; Stop 06/06/19 at 15:28; Status DC Budesonide (Pulmicort) 0.5 mg RTBID NEB Last administered on 06/11/19at 07:34; Start 06/06/19 at 20:00 Albuterol Sulfate (Ventolin Neb Soln) 2.5 mg RTQID NEB ; Start 06/06/19 at 16:00; Stop 06/06/19 at 15:35; Status DC Albuterol/ Ipratropium (Duoneb) 3 ml RTQID NEB Last administered on 06/11/19at 07:31; Start 06/06/19 at 16:00 Isosorbide Mononitrate (Imdur) 60 mg DAILY PO Last administered on 06/08/19at 08:55; Start 06/07/19 at 09:00; Stop 06/08/19 at 14:44; Status DC Hydralazine HCl (Apresoline Inj) 10 mg 1X ONCE IVP Last administered on 06/07/19at 01:44; Start 06/07/19 at 02:00; Stop 06/07/19 at 02:01; Status DC Sodium Chloride 1,000 ml @ 100 mls/hr Q10H ONCE IV Last administered on 06/07/19at 09:45; Start 06/07/19 at 09:45; Stop 06/07/19 at 09:55; Status DC Sodium Chloride 1,000 ml @ 100 mls/hr Q10H IV Last administered on 06/07/19at 11:28; Start 06/07/19 at 09:52; Stop 06/07/19 at 19:51; Status DC Labetalol HCl (Trandate) 200 mg BID PO Last administered on 06/09/19at 09:10; Start 06/07/19 at 10:15; Stop 06/09/19 at 14:39; Status DC Hydralazine HCl (Apresoline Inj) 10 mg 1X ONCE IVP Last administered on 06/07/19at 12:48; Start 06/07/19 at 12:45; Stop 06/07/19 at 12:46; Status DC Amlodipine Besylate (Norvasc) 5 mg 1X ONCE PO Last administered on 06/07/19at 12:49; Start 06/07/19 at 12:45; Stop 06/07/19 at 12:46; Status DC Iodixanol (Visipaque 320) 100 ml STK-MED ONCE .ROUTE ; Start 06/07/19 at 15:05; Stop 06/07/19 at 15:06; Status DC Lidocaine HCl (Xylocaine-Mpf 1% 2ml Vial) 2 ml STK-MED ONCE .ROUTE ; Start 06/07/19 at 15:06; Stop 06/07/19 at 15:06; Status DC Heparin Sodium/ Sodium Chloride 500 ml @ As Directed STK-MED ONCE .ROUTE ; Start 06/07/19 at 15:06; Stop 06/07/19 at 15:06; Status DC Fentanyl Citrate (Fentanyl 2ml Vial) 100 mcg STK-MED ONCE .ROUTE ; Start 06/07/19 at 15:36; Stop 06/07/19 at 15:37; Status DC Midazolam HCl (Versed) 2 mg STK-MED ONCE .ROUTE ; Start 06/07/19 at 15:36; Stop 06/07/19 at 15:37; Status DC Heparin Sodium (Porcine) (Heparin Sodium) 10,000 unit STK-MED ONCE .ROUTE ; Start 06/07/19 at 15:36; Stop 06/07/19 at 15:37; Status DC Verapamil HCl (Verapamil) 5 mg STK-MED ONCE .ROUTE ; Start 06/07/19 at 15:37; Stop 06/07/19 at 15:37; Status DC Nitroglycerin (Nitroglycerin) 200 mcg STK-MED ONCE .ROUTE ; Start 06/07/19 at 15:37; Stop 06/07/19 at 15:37; Status DC Hydralazine HCl (Apresoline Inj) 20 mg STK-MED ONCE .ROUTE ; Start 06/07/19 at 15:47; Stop 06/07/19 at 15:48; Status DC Nitroglycerin (Nitroglycerin) 200 mcg 1X ONCE IART Last administered on 06/07/19at 16:00; Start 06/07/19 at 16:00; Stop 06/07/19 at 16:01; Status DC Verapamil HCl (Verapamil) 2.5 mg 1X ONCE IART Last administered on 06/07/19at 16:00; Start 06/07/19 at 16:00; Stop 06/07/19 at 16:01; Status DC Heparin Sodium (Porcine) (Heparin Sodium) 2,500 unit 1X ONCE IART Last administered on 06/07/19at 16:00; Start 06/07/19 at 16:00; Stop 06/07/19 at 16:01; Status DC Heparin Sodium/ Sodium Chloride (HEPARIN for ARTERIAL LINE FLUSH) 1,000 unit 1X ONCE IART Last administered on 06/07/19at 16:00; Start 06/07/19 at 16:00; St op 06/07/19 at 16:01; Status DC Midazolam HCl (Versed) 2 mg 1X ONCE IV Last administered on 06/07/19at 16:00; Start 06/07/19 at 16:00; Stop 06/07/19 at 16:01; Status DC Fentanyl Citrate (Fentanyl 2ml Vial) 100 mcg 1X ONCE IV Last administered on 06/07/19at 16:00; Start 06/07/19 at 16:00; Stop 06/07/19 at 16:01; Status DC Iodixanol (Visipaque 320) 100 ml 1X ONCE IART Last administered on 06/07/19at 16:00; Start 06/07/19 at 16:00; Stop 06/07/19 at 16:01; Status DC Lidocaine HCl (Xylocaine-Mpf 1% 2ml Vial) 2 ml 1X ONCE INJ Last administered on 06/07/19at 16:00; Start 06/07/19 at 16:00; Stop 06/07/19 at 16:01; Status DC Hydralazine HCl (Apresoline Inj) 10 mg 1X ONCE IVP Last administered on 06/07/19at 16:00; Start 06/07/19 at 16:00; Stop 06/07/19 at 16:01; Status DC Info (CONTRAST GIVEN -- Rx MONITORING) 1 each PRN DAILY PRN MC SEE COMMENTS; Start 06/07/19 at 16:00; Stop 06/09/19 at 15:59; Status DC Sodium Chloride (Normal Saline Flush) 3 ml QSHIFT PRN IV AFTER MEDS AND BLOOD DRAWS; Start 06/07/19 at 16:15 Nitroglycerin (Nitrostat) 0.4 mg PRN Q5MIN PRN SL CHEST PAIN; Start 06/07/19 at 16:15 Labetalol HCl (Normodyne Iv Push) 20 mg STK-MED ONCE IVP ; Start 06/07/19 at 17:17; Stop 06/07/19 at 18:23; Status DC Hydralazine HCl (Apresoline Inj) 10 mg PRN Q4HRS PRN IVP ELEVATED BP, SEE COMMENTS Last administered on 06/09/19at 12:09; Start 06/07/19 at 19:00 Clonidine HCl (Catapres Tts-2) 1 patch WEEKLY TD ; Start 06/14/19 at 09:00 Amlodipine Besylate (Norvasc) 10 mg DAILY PO Last administered on 06/11/19at 08:51; Start 06/08/19 at 15:00 Sodium Chloride 1,000 ml @ 50 mls/hr Q20H IV Last administered on 06/11/19at 02:55; Start 06/09/19 at 12:30 Labetalol HCl (Trandate) 300 mg BID PO Last administered on 06/11/19at 08:51; Start 06/09/19 at 21:00 Info (Anti-Coagulation Monitoring By Pharmacy) 1 each PRN DAILY PRN MC SEE COMMENTS Last administered on 06/10/19at 11:19; Start 06/10/19 at 07:30 Hydralazine HCl (Apresoline) 25 mg TID PO ; Start 06/11/19 at 12:00 Active Scripts Active Reported Hydrochlorothiazide Tablet (Hydrochlorothiazide) 25 Mg Tablet 25 Mg PO DAILY Protonix (Pantoprazole Sodium) 40 Mg Tablet.dr 40 Mg PO DAILYAC Losartan Potassium 100 Mg Tablet 100 Mg PO DAILY Hydroxychloroquine Sulfate 200 Mg Tablet 200 Mg PO DAILY Multivitamins (Multivitamin) 1 Each Tablet 1 Tab PO DAILY Metoprolol Succinate ( Xl ) (Metoprolol Succinate) 100 Mg Tab.er.24h 100 Mg PO DAILY Symbicort 160-4.5 Mcg Inhaler (Budesonide/Formoterol Fumarate) 10.2 Gm H fa.aer.ad 1 Puff IH BID Spiriva (Tiotropium [place]) 18 Mcg Cap.w.dev 2 Inh IH DAILY Proair Hfa Inhaler (Albuterol Sulfate) 8.5 Gm Hfa.aer.ad 1 Puff INH PRN Q6HRS PRN Xarelto (Rivaroxaban) 10 Mg Tablet 10 Mg PO DAILY Atorvastatin Calcium 40 Mg Tablet 40 Mg PO HS Phoslo (Calcium Acetate) 667 Mg Capsule 1 Cap PO BIDWMEALS K-Tab ER (Potassium Chloride) 20 Meq Tablet.er 20 Meq PO DAILY Furosemide 40 Mg Tablet 40 Mg PO BID92 Vitals/I & O Vital Sign - Last 24 Hours 06/10/19 06/10/19 06/10/19 06/10/19 14:56 15:39 19:45 19:50 Temp 98.2 97.7 98.2 97.7 Pulse 78 91 Resp 16 20 B/P (MAP) 133/79 (97) 152/81 (104) Pulse Ox 99 99 98 98 O2 Delivery Room Air Room Air Room Air Room Air 06/10/19 06/10/19 06/10/19 06/11/19 20:00 22:08 22:45 02:45 Temp 98.3 98.1 98.3 98.1 Pulse 91 87 84 Resp 18 20 B/P (MAP) 152/81 160/88 (112) 147/80 (102) Pulse Ox 97 97 O2 Delivery Room Air Room Air Room Air 06/11/19 06/11/19 06/11/19 06/11/19 07:00 07:30 08:00 08:51 Temp 98.1 98.1 Pulse 80 80 Resp 18 B/P (MAP) 149/73 (98) 149/73 Pulse Ox 96 99 O2 Delivery Room Air Room Air Room Air 06/11/19 06/11/19 06/11/19 08:51 08:52 11:13 Temp 98.0 98.0 Pulse 80 80 80 Resp 20 B/P (MAP) 149/73 149/73 176/97 (123) Pulse Ox 95 O2 Delivery Room Air Intake and Output 06/10/19 06/10/19 06/11/19 14:59 22:59 06:59 Intake Total 480 ml 240 ml 840 ml Output Total 200 ml 200 ml Balance 280 ml 40 ml 840 ml CAMILA LANDRY MD Jun 11, 2019 11:42
[2019-06-11 12:20] LABS: CALCIUM 8.7 mg/dL (8.5-10.1); CREATININE 2.6 mg/dL (0.6-1.0); GFR 22.9; POTASSIUM 4.6 mmol/L (3.5-5.1)
[2019-06-11] MEDS: hydrALAZINE 25 MG TABLET PO SCH ×2 (12:22→22:26)
[2019-06-11 15:00] VITALS: BP 155/85
--- NOTE | 2019-06-11 15:50 | NUR ---
SS following up with discharge planning. PT/OT recommended alf unit at discharge. SS met with pt to discuss alf unit and discharge planning. Pt agreeable to alf unit and requested that referral be phoned and faxed to [facility], ; fax [phone]. SS phoned and faxed referral to [facility]. SS awaiting acceptance decision and insurance determination and will proceed accordingly with discharge planning.
[2019-06-11 19:05] VITALS: BP 141/75
[2019-06-11] MEDS: ATORVASTATIN CALCIUM 40 MG TABLET. PO SCH (22:25)
[2019-06-11 22:35] VITALS: BP 172/86
[2019-06-12] MEDS: ALBUTEROL SULFATE 2.5 MG/3 ML NEBU. INH PRN (02:14)
[2019-06-12 03:05] VITALS: BP 153/82
[2019-06-12 06:59] VITALS: BP 162/84
[2019-06-12] MEDS: IPRATRPIUM/ALBUTEROL 0.5/2.5MG 3 ML NEBU. NEB SCH ×4 (07:12→20:53)
[2019-06-12] MEDS: BUDESONIDE 0.5 MG/2 ML NEBU. NEB SCH ×2 (07:12→20:53)
[2019-06-12] MEDS: amLODIPine BESYLATE 10 MG TABLET PO SCH (09:23)
[2019-06-12] MEDS: hydrALAZINE 25 MG TABLET PO SCH ×3 (09:23→20:47)
[2019-06-12] MEDS: CALCIUM ACETATE 667 MG CAPSULE PO SCH ×2 (09:23→17:38)
[2019-06-12] MEDS: HYDROXYCHLOROQUINE 200 MG TABLET PO SCH (09:24)
[2019-06-12] MEDS: MULTIVITAMIN with MINERAL TABLET. PO SCH (09:24)
[2019-06-12] MEDS: RIVAROXABAN 10 MG TABLET. PO SCH (09:24)
[2019-06-12] MEDS: LOSARTAN POTASSIUM 50 MG TABLET. PO SCH (09:24)
[2019-06-12] MEDS: POTASSIUM CHLORIDE 20 MEQ TABLET.ER. PO SCH (09:24)
[2019-06-12] MEDS: LABETALOL HCL 200 MG TABLET PO SCH ×2 (09:24→20:47)
[2019-06-12] MEDS: PANTOPRAZOLE 40 MG TABLET.DR. PO SCH (09:24)
[2019-06-12 10:09] VITALS: BP 160/89
--- NOTE | 2019-06-12 10:33 | NUR ---
SS following up with discharge planning. Pt accepted at [facility], ; fax [phone], pending insurance determination. SS will await discharge orders and insurance approval and will proceed accordingly with discharge planning. Pt's RN notified.
--- NOTE | 2019-06-12 10:51 | PDOC ---
PROGRESS NOTES Assessment Problems Medical Problems: (1) Acute exacerbation of CHF (congestive heart failure) Status: Acute (2) Chest pain Status: Acute (3) Hypertensive urgency Status: Acute Hypertensive encephalopathy. Headaches, resolved. Medical issues:.palpitations, atrial fibrillation, possible lupus, hyperlipidemia, hypertension, chronic obstructive pulmonary disease, renal failure with worsening creatinine, possible pulmonary infiltrate Plan Treat medical diseases. Neurologically stable for discharge Subjective No complaints Objective Vital Signs Date Time Temp Pulse Resp B/P (MAP) Pulse Ox O2 Delivery O2 Flow Rate FiO2 06/12/19 10:09 98.0 83 18 160/89 (112) 98 Room Air 98.0 Intake and Output 06/12/19 07:00 Intake Total 1020 ml Output Total 550 ml Balance 470 ml Intake Oral 1020 ml Output Urine Total 550 ml # Voids 4 PHYSICAL EXAM Alert. Oriented to time, place and person. PERRL. EOMI. CN: no focal findings. Muscle tone: normal. Muscle strength: 5/5 DTR: 2+ Plantar reflex: flexor Gait: not examined in bed. Sensory exam: no abnormal findings. No cerebellar signs elicited. Review of Relevant I have reviewed the following items gregorio (where applicable) has been applied. Labs Laboratory Tests Test 06/11/19 11:50 Sodium Level 142 mmol/L (136-145) Potassium Level 4.6 mmol/L (3.5-5.1) Chloride Level 108 mmol/L (98-107) Carbon Dioxide Level 24 mmol/L (21-32) Anion Gap 10 (6-14) Blood Urea Nitrogen 58 mg/dL (7-20) Creatinine 2.6 mg/dL (0.6-1.0) Estimated GFR (Cockcroft-Gault) 22.9 Glucose Level 86 mg/dL (70-99) Calcium Level 8.7 mg/dL (8.5-10.1) Laboratory Tests Test 06/11/19 11:50 Sodium Level 142 mmol/L (136-145) Potassium Level 4.6 mmol/L (3.5-5.1) Chloride Level 108 mmol/L (98-107) Carbon Dioxide Level 24 mmol/L (21-32) Anion Gap 10 (6-14) Blood Urea Nitrogen 58 mg/dL (7-20) Creatinine 2.6 mg/dL (0.6-1.0) Estimated GFR (Cockcroft-Gault) 22.9 Glucose Level 86 mg/dL (70-99) Calcium Level 8.7 mg/dL (8.5-10.1) Medications Current Medications Hydralazine HCl (Apresoline Inj) 10 mg 1X ONCE IVP Last administered on at 18:30; Start 06/05/19 at 18:00; Stop 06/05/19 at 18:01; Status DC Labetalol HCl (Normodyne Iv Push) 20 mg 1X STAT IVP Last administered on 06/05/19at 19:20; Start 06/05/19 at 19:10; Stop 06/05/19 at 19:13; Status DC Ondansetron HCl (Zofran) 4 mg PRN Q8HRS PRN IV NAUSEA/VOMITING; Start 06/05/19 at 19:30; Stop 06/06/19 at 19:29; Status DC Fentanyl Citrate (Fentanyl 2ml Vial) 50 mcg PRN Q1HR PRN IV PAIN; Start 06/05/19 at 19:30; Stop 06/06/19 at 19:29; Status DC Labetalol HCl (Normodyne Iv Push) 20 mg PRN Q6HRS PRN IVP HYPERTENSION Last administered on 06/07/19at 23:35; Start 06/05/19 at 19:30 Losartan Potassium (Cozaar) 100 mg 1X ONCE PO Last administered on 06/05/19at 21:38; Start 06/05/19 at 21:30; Stop 06/05/19 at 21:31; Status DC Nitroglycerin/ Dextrose 250 ml @ 0 mls/hr 1X ONCE IV Last administered on 06/05/19at 21:41; Start 06/05/19 at 21:30; Stop 06/05/19 at 21:31; Status DC Nitroglycerin/ Dextrose 250 ml @ 1.5 mls/hr CONT PRN IV SEE I/O RECORD; Start 06/05/19 at 22:30; Stop 06/06/19 at 02:17; Status DC Acetaminophen (Tylenol) 650 mg PRN Q4HRS PRN PO HEADACHE Last administered on 06/10/19at 22:08; Start 06/05/19 at 23:00 Hydrochlorothiazide (Hydrodiuril) 25 mg DAILY PO Last administered on 06/08/19at 10:57; Start 06/06/19 at 09:00; Stop 06/08/19 at 14:44; Status DC Metoprolol Succinate (Toprol Xl) 100 mg DAILY PO Last administered on at 08:55; Start 06/06/19 at 09:00; Stop 06/07/19 at 10:04; Status DC Losartan Potassium (Cozaar) 100 mg DAILY PO Last administered on 06/12/19 09:24; Start 06/06/19 at 09:00 Nicardipine HCl 50 mg/Sodium Chloride 250 ml @ 25 mls/hr CONT PRN IV SEE I/O RECORD Last administered on 06/06/19 02:15; Start 06/06/19 at 02:00 Albuterol Sulfate (Ventolin Neb Soln) 2.5 mg PRN Q6HRS PRN INH SHORTNESS OF BREATH Last administered on 06/12/19 02:14; Start 06/06/19 at 15:15 Atorvastatin Calcium (Lipitor) 40 mg HS PO Last administered on 06/11/19 22:25; Start 06/06/19 at 21:00 Calcium Acetate (Phoslo) 667 mg BIDWMEALS PO Last administered on 06/12/19 09:23; Start 06/06/19 at 17:00 Furosemide (Lasix) 40 mg BID92 PO Last administered on 06/08/19at 15:17; Start 06/06/19 at 15:45; Stop 06/09/19 at 12:51; Status DC Hydroxychloroquine Sulfate (Plaquenil) 200 mg DAILY PO Last administered on 06/12/19 09:24; Start 06/07/19 at 09:00 Pantoprazole Sodium (Protonix) 40 mg DAILYAC PO Last administered on 06/12/19 09:24; Start 06/07/19 at 07:30 Rivaroxaban (Xarelto) 10 mg DAILY PO Last administered on 06/12/19 09:24; St art 06/07/19 at 09:00 Non-Formulary Medication (Budesonide/ Formoterol Fumarate (Symbicort 160-4.5 Mcg Inhaler)) 1 puff BID IH ; Start 06/06/19 at 21:00; Stop 06/06/19 at 15:27; Status DC Multivitamins (Thera M Plus) 1 tab DAILY PO Last administered on 06/12/19 09:24; Start 06/07/19 at 09:00 Potassium Chloride (Klor-Con) 20 meq DAILYWBKFT PO Last administered on 06/12/19at 09:24; Start 06/07/19 at 08:00 Non-Formulary Medication (Tiotropium Hawthorne (Spiriva)) 2 inh DAILY IH ; Start 06/07/19 at 09:00; Stop 06/06/19 at 15:28; Status DC Budesonide (Pulmicort) 0.5 mg RTBID NEB Last administered on 06/12/19 07:12; Start 06/06/19 at 20:00 Albuterol Sulfate (Ventolin Neb Soln) 2.5 mg RTQID NEB ; Start 06/06/19 at 16:00; Stop 06/06/19 at 15:35; Status DC Albuterol/ Ipratropium (Duoneb) 3 ml RTQID NEB Last administered on 06/12/19at 07:12; Start 06/06/19 at 16:00 Isosorbide Mononitrate (Imdur) 60 mg DAILY PO Last administered on 06/08/19at 08:55; Start 06/07/19 at 09:00; Stop 06/08/19 at 14:44; Status DC Hydralazine HCl (Apresoline Inj) 10 mg 1X ONCE IVP Last administered on 06/07/19at 01:44; Start 06/07/19 at 02:00; Stop 06/07/19 at 02:01; Status DC Sodium Chloride 1,000 ml @ 100 mls/hr Q10H ONCE IV Last administered on 06/07/19at 09:45; Start 06/07/19 at 09:45; Stop 06/07/19 at 09:55; Status DC Sodium Chloride 1,000 ml @ 100 mls/hr Q10H IV Last administered on 06/07/19at 11:28; Start 06/07/19 at 09:52; Stop 06/07/19 at 19:51; Status DC Labetalol HCl (Trandate) 200 mg BID PO Last administered on 06/09/19at 09:10; Start 06/07/19 at 10:15; Stop 06/09/19 at 14:39; Status DC Hydralazine HCl (Apresoline Inj) 10 mg 1X ONCE IVP Last administered on 06/07/19at 12:48; Start 06/07/19 at 12:45; Stop 06/07/19 at 12:46; Status DC Amlodipine Besylate (Norvasc) 5 mg 1X ONCE PO Last administered on 06/07/19at 12:49; Start 06/07/19 at 12:45; Stop 06/07/19 at 12:46; Status DC Iodixanol (Visipaque 320) 100 ml STK-MED ONCE .ROUTE ; Start 06/07/19 at 15:05; Stop 06/07/19 at 15:06; Status DC Lidocaine HCl (Xylocaine-Mpf 1% 2ml Vial) 2 ml STK-MED ONCE .ROUTE ; Start 06/07/19 at 15:06; Stop 06/07/19 at 15:06; Status DC Heparin Sodium/ Sodium Chloride 500 ml @ As Directed STK-MED ONCE .ROUTE ; Start 06/07/19 at 15:06; Stop 06/07/19 at 15:06; Status DC Fentanyl Citrate (Fentanyl 2ml Vial) 100 mcg STK-MED ONCE .ROUTE ; Start 06/07/19 at 15:36; Stop 06/07/19 at 15:37; Status DC Midazolam HCl (Versed) 2 mg STK-MED ONCE .ROUTE ; Start 06/07/19 at 15:36; Stop 06/07/19 at 15:37; Status DC Heparin Sodium (Porcine) (Heparin Sodium) 10,000 unit STK-MED ONCE .ROUTE ; Start 06/07/19 at 15:36; Stop 06/07/19 at 15:37; Status DC Verapamil HCl (Verapamil) 5 mg STK-MED ONCE .ROUTE ; Start 06/07/19 at 15:37; Stop 06/07/19 at 15:37; Status DC Nitroglycerin (Nitroglycerin) 200 mcg STK-MED ONCE .ROUTE ; Start 06/07/19 at 15:37; Stop 06/07/19 at 15:37; Status DC Hydralazine HCl (Apresoline Inj) 20 mg STK-MED ONCE .ROUTE ; Start 06/07/19 at 15:47; Stop 06/07/19 at 15:48; Status DC Nitroglycerin (Nitroglycerin) 200 mcg 1X ONCE IART Last administered on 06/07/19 16:00; Start 06/07/19 at 16:00; Stop 06/07/19 at 16:01; Status DC Verapamil HCl (Verapamil) 2.5 mg 1X ONCE IART Last administered on 06/07/19 16:00; Start 06/07/19 at 16:00; Stop 06/07/19 at 16:01; Status DC Heparin Sodium (Porcine) (Heparin Sodium) 2,500 unit 1X ONCE IART Last administered on 06/07/19 16:00; Start 06/07/19 at 16:00; Stop 06/07/19 at 16:01; Status DC Heparin Sodium/ Sodium Chloride (HEPARIN for ARTERIAL LINE FLUSH) 1,000 unit 1X ONCE IART Last administered on 06/07/19 16:00; Start 06/07/19 at 16:00; Stop 06/07/19 at 16:01; Status DC Midazolam HCl (Versed) 2 mg 1X ONCE IV Last administered on 06/07/19 16:00; Start 06/07/19 at 16:00; Stop 06/07/19 at 16:01; Status DC Fentanyl Citrate (Fentanyl 2ml Vial) 100 mcg 1X ONCE IV Last administered on 06/07/19 16:00; Start 06/07/19 at 16:00; Stop 06/07/19 at 16:01; Status DC Iodixanol (Visipaque 320) 100 ml 1X ONCE IART Last administered on 06/07/19 16:00; Start 06/07/19 at 16:00; Stop 06/07/19 at 16:01; Status DC Lidocaine HCl (Xylocaine-Mpf 1% 2ml Vial) 2 ml 1X ONCE INJ Last administered on 06/07/19 16:00; Start 06/07/19 at 16:00; Stop 06/07/19 at 16:01; Status DC Hydralazine HCl (Apresoline Inj) 10 mg 1X ONCE IVP Last administered on 06/07/19 16:00; Start 06/07/19 at 16:00; Stop 06/07/19 at 16:01; Status DC Info (CONTRAST GIVEN -- Rx MONITORING) 1 each PRN DAILY PRN MC SEE COMMENTS; Start 06/07/19 at 16:00; Stop 06/09/19 at 15:59; Status DC Sodium Chloride (Normal Saline Flush) 3 ml QSHIFT PRN IV AFTER MEDS AND BLOOD DRAWS; Start 06/07/19 at 16:15 Nitroglycerin (Nitrostat) 0.4 mg PRN Q5MIN PRN SL CHEST PAIN; Start 06/07/19 at 16:15 Labetalol HCl (Normodyne Iv Push) 20 mg STK-MED ONCE IVP ; Start 06/07/19 at 17:17; Stop 06/07/19 at 18:23; Status DC Hydralazine HCl (Apresoline Inj) 10 mg PRN Q4HRS PRN IVP ELEVATED BP, SEE COMMENTS Last administered on 06/09/19at 12:09; Start 06/07/19 at 19:00 Clonidine HCl (Catapres Tts-2) 1 patch WEEKLY TD ; Start 06/14/19 at 09:00 Amlodipine Besylate (Norvasc) 10 mg DAILY PO Last administered on 06/12/19at 09:23; Start 06/08/19 at 15:00 Sodium Chloride 1,000 ml @ 50 mls/hr Q20H IV Last administered on 06/11/19at 22:25; Start 06/09/19 at 12:30 Labetalol HCl (Trandate) 300 mg BID PO Last administered on 06/12/19at 09:24; Start 06/09/19 at 21:00 Info (Anti-Coagulation Monitoring By Pharmacy) 1 each PRN DAILY PRN MC SEE COMMENTS Last administered on 06/10/19at 11:19; Start 06/10/19 at 07:30 Hydralazine HCl (Apresoline) 25 mg TID PO Last administered on 06/12/19at 09:23; Start 06/11/19 at 12:00 Active Scripts Active Reported Hydrochlorothiazide Tablet (Hydrochlorothiazide) 25 Mg Tablet 25 Mg PO DAILY Protonix (Pantoprazole Sodium) 40 Mg Tablet.dr 40 Mg PO DAILYAC Losartan Potassium 100 Mg Tablet 100 Mg PO DAILY Hydroxychloroquine Sulfate 200 Mg Tablet 200 Mg PO DAILY Multivitamins (Multivitamin) 1 Each Tablet 1 Tab PO DAILY Metoprolol Succinate ( Xl ) (Metoprolol Succinate) 100 Mg Tab.er.24h 100 Mg PO DAILY Symbicort 160-4.5 Mcg Inhaler (Budesonide/Formoterol Fumarate) 10.2 Gm Hfa.aer.ad 1 Puff IH BID Spiriva (Tiotropium Hawthorne) 18 Mcg Cap.w.dev 2 Inh IH DAILY Proair Hfa Inhaler (Albuterol Sulfate) 8.5 Gm Hfa.aer.ad 1 Puff INH PRN Q6HRS PRN Xarelto (Rivaroxaban) 10 Mg Tablet 10 Mg PO DAILY Atorvastatin Calcium 40 Mg Tablet 40 Mg PO HS Phoslo (Calcium Acetate) 667 Mg Capsule 1 Cap PO BIDWMEALS K-Tab ER (Potassium Chloride) 20 Meq Tablet.er 20 Meq PO DAILY Furosemide 40 Mg Tablet 40 Mg PO [id number] Vitals/I & O Vital Sign - Last 24 Hours 06/11/19 06/11/19 06/11/19 06/11/19 11:13 12:22 12:37 15:00 Temp 98.0 97.6 98.0 97.6 Pulse 80 80 77 Resp 20 16 B/P (MAP) 176/97 (123) 176/97 155/85 (108) Pulse Ox 95 99 99 O2 Delivery Room Air Room Air Room Air 06/11/19 06/11/19 06/11/19 06/11/19 15:53 19:05 19:37 20:00 Temp 98.2 98.2 Pulse 85 Resp 18 B/P (MAP) 141/75 (97) Pulse Ox 98 98 99 O2 Delivery Room Air Room Air Room Air Room Air 06/11/19 06/11/19 06/11/19 06/12/19 22:26 22:27 22:35 02:15 Temp 98.9 98.9 Pulse 85 85 87 Resp 18 B/P (MAP) 141/75 141/75 172/86 (114) Pulse Ox 92 O2 Delivery Room Air Room Air 06/12/19 06/12/19 06/12/19 06/12/19 03:05 06:59 07:12 08:04 Temp 98.2 98.1 98.2 98.1 Pulse 83 87 Resp 18 18 B/P (MAP) 153/82 (105) 162/84 (110) Pulse Ox 96 96 100 O2 Delivery Room Air Room Air Room Air Room Air 06/12/19 06/12/19 06/12/19 06/12/19 09:23 09:23 09:24 09:24 Pulse 87 87 87 87 B/P (MAP) 162/84 162/84 162/84 162/84 06/12/19 10:09 Temp 98.0 98.0 Pulse 83 Resp 18 B/P (MAP) 160/89 (112) Pulse Ox 98 O2 Delivery Room Air Intake and Output 06/11/19 06/11/19 06/12/19 15:00 23:00 07:00 Intake Total 480 ml 240 ml 300 ml Output Total 250 ml 300 ml Balance 480 ml -10 ml 0 ml CAMILA LANDRY MD Jun 12, 2019 10:51
--- NOTE | 2019-06-12 12:11 | PDOC ---
PROGRESS NOTES Chief Complaint Chief Complaint Hypertensive urgency Chest pain, resolved Coronary calcifications per recent CT. LHC showed No significant coronary artery disease on 06/07/19 Headache Findings a small vessel ischemic change, technically age indeterminate without prior imaging for comparison. Lupus/antiphospholipid antibody syndrome with past PE HYPERTENSIVE ENCEPHALOPATHY CKD STAGE 3 No Doppler evidence of greater than 60% stenosis within the renal arteries.Echogenic renal parenchyma, a finding which can be seen with medical renal disease.cr not at goal Small simple appearing renal cysts. Acute on chronic diastolic CHF Valvular insufficiency/diastolic murmur PAFIB - maintaining SR HLP Anemia of chronic disease with prior hx of thrombocytopenia and leukopenia: ruled as an effect from immunosuppression Hx of RA - not sure if she is still on imuran, but claims not being on steroids nor methotrexate anymore. Thyromegaly/nodules: per CT COPD Pulmonary HTN PLAN ADMIT [facility] BED CARDIOLOGY CONSULT serial troponin i Renal duplex. study NOTED TTE neurology consult NEPHROLOGY FOLLOWING CR NOT AT BASELINE 29 min time pt exam, chart review, > 50% of time spent with exam, chart review, pt care coordination History of Present Illness History of Present Illness Ms Caruso is a 58yo F w/ PMHx AFIB, HTN, Hyperlipidemia, COPD, CKD3, Pulmonary embolus, APS/lupus admitted for complains of chest pain. She described the pain to her left chest as punching sensation lasting few seconds intermittent. No frequent dizziness and no palpitations. She has been noted with PAFIB no associated nausea, vomiting. No jaw or arm discomfort. No frequent indigestion. No exertional CP nor HOBSON. Found with BP 213/155, admitted for hypertensive emergency. BP has been coming down over the course of the weekend. Seen by nephrology, cardiology and neurology. 06/10: She is a bit confused about whether she is in a correction or hospital, states she likes the care she is getting her. She is asking to leave. No further chest pain or shortness of breath. Still a little mentally foggy today, but alert and oriented. She is feeling very weak today. No change in BUN or Cr today. Plan: PT/OT - may need SNF or rehab. Regardless, I have d/w nephrology she needs close monitoring of her renal function. Will need bloodwork on 06/14/19 Plan for skilled discharge today or tomorrow Vitals Vitals Vital Signs Date Time Temp Pulse Resp B/P (MAP) Pulse Ox O2 Delivery O2 Flow Rate FiO2 06/12/19 11:30 98 Room Air 06/12/19 10:09 98.0 83 18 160/89 (112) 98.0 Physical Exam General: Alert, Oriented X3, Cooperative, No acute distress Heart: Regular rate, Normal S1, Normal S2, No murmurs, Gallops Lungs: Clear Abdomen: Normal bowel sounds, Soft, No tenderness, No hepatosplenomegaly, No masses Extremities: No clubbing, No cyanosis, No edema, Normal pulses, No tenderness/swelling Skin: No breakdown, No significant lesion Labs LABS Laboratory Tests Test 06/11/19 11:50 Sodium Level 142 mmol/L (136-145) Potassium Level 4.6 mmol/L (3.5-5.1) Chloride Level 108 mmol/L (98-107) Carbon Dioxide Level 24 mmol/L (21-32) Anion Gap 10 (6-14) Blood Urea Nitrogen 58 mg/dL (7-20) Creatinine 2.6 mg/dL (0.6-1.0) Estimated GFR (Cockcroft-Gault) 22.9 Glucose Level 86 mg/dL (70-99) Calcium Level 8.7 mg/dL (8.5-10.1) Assessment and Plan Assessmemt and Plan Problems Medical Problems: (1) Acute exacerbation of CHF (congestive heart failure) Status: Acute (2) Chest pain Status: Acute (3) Hypertensive urgency Status: Acute Comment Review of Relevant I have reviewed the following items gregorio (where applicable) has been applied. Labs Laboratory Tests Test 06/11/19 11:50 Sodium Level 142 mmol/L (136-145) Potassium Level 4.6 mmol/L (3.5-5.1) Chloride Level 108 mmol/L (98-107) Carbon Dioxide Level 24 mmol/L (21-32) Anion Gap 10 (6-14) Blood Urea Nitrogen 58 mg/dL (7-20) Creatinine 2.6 mg/dL (0.6-1.0) Estimated GFR (Cockcroft-Gault) 22.9 Glucose Level 86 mg/dL (70-99) Calcium Level 8.7 mg/dL (8.5-10.1) Laboratory Tests Test 06/11/19 11:50 Sodium Level 142 mmol/L (136-145) Potassium Level 4.6 mmol/L (3.5-5.1) Chloride Level 108 mmol/L (98-107) Carbon Dioxide Level 24 mmol/L (21-32) Anion Gap 10 (6-14) Blood Urea Nitrogen 58 mg/dL (7-20) Creatinine 2.6 mg/dL (0.6-1.0) Estimated GFR (Cockcroft-Gault) 22.9 Glucose Level 86 mg/dL (70-99) Calcium Level 8.7 mg/dL (8.5-10.1) Medications Current Medications Hydralazine HCl (Apresoline Inj) 10 mg 1X ONCE IVP Last administered on 06/05/19at 18:30; Start 06/05/19 at 18:00; Stop 06/05/19 at 18:01; Status DC Labetalol HCl (Normodyne Iv Push) 20 mg 1X STAT IVP Last administered on 06/05/19at 19:20; Start 06/05/19 at 19:10; Stop 06/05/19 at 19:13; Status DC Ondansetron HCl (Zofran) 4 mg PRN Q8HRS PRN IV NAUSEA/VOMITING; Start 06/05/19 at 19:30; Stop 06/06/19 at 19:29; Status DC Fentanyl Citrate (Fentanyl 2ml Vial) 50 mcg PRN Q1HR PRN IV PAIN; Start 06/05/19 at 19:30; Stop 06/06/19 at 19:29; Status DC Labetalol HCl (Normodyne Iv Push) 20 mg PRN Q6HRS PRN IVP HYPERTENSION Last administered on 06/07/19at 23:35; Start 06/05/19 at 19:30 Losartan Potassium (Cozaar) 100 mg 1X ONCE PO Last administered on 06/05/19at 21:38; Start 06/05/19 at 21:30; Stop 06/05/19 at 21:31; Status DC Nitroglycerin/ Dextrose 250 ml @ 0 mls/hr 1X ONCE IV Last administered on 06/05/19at 21:41; Start 06/05/19 at 21:30; Stop 06/05/19 at 21:31; Status DC Nitroglycerin/ Dextrose 250 ml @ 1.5 mls/hr CONT PRN IV SEE I/O RECORD; Start 06/05/19 at 22:30; Stop 06/06/19 at 02:17; Status DC Acetaminophen (Tylenol) 650 mg PRN Q4HRS PRN PO HEADACHE Last administered on 06/10/19 22:08; Start 06/05/19 at 23:00 Hydrochlorothiazide (Hydrodiuril) 25 mg DAILY PO Last administered on 06/08/19 10:57; Start 06/06/19 at 09:00; Stop 06/08/19 at 14:44; Status DC Metoprolol Succinate (Toprol Xl) 100 mg DAILY PO Last administered on 06/07/19 08:55; Start 06/06/19 at 09:00; Stop 06/07/19 at 10:04; Status DC Losartan Potassium (Cozaar) 100 mg DAILY PO Last administered on 06/12/19 09:24; Start 06/06/19 at 09:00 Nicardipine HCl 50 mg/Sodium Chloride 250 ml @ 25 mls/hr CONT PRN IV SEE I/O RECORD Last administered on 06/06/19 02:15; Start 06/06/19 at 02:00 Albuterol Sulfate (Ventolin Neb Soln) 2.5 mg PRN Q6HRS PRN INH SHORTNESS OF BREATH Last administered on 06/12/19 02:14; Start 06/06/19 at 15:15 Atorvastatin Calcium (Lipitor) 40 mg HS PO Last administered on 06/11/19 22:25; Start 06/06/19 at 21:00 Calcium Acetate (Phoslo) 667 mg BIDWMEALS PO Last administered on 06/12/19 09:23; Start 06/06/19 at 17:00 Furosemide (Lasix) 40 mg BID92 PO Last administered on 06/08/19 15:17; Start 06/06/19 at 15:45; Stop 06/09/19 at 12:51; Status DC Hydroxychloroquine Sulfate (Plaquenil) 200 mg DAILY PO Last administered on 06/12/19 09:24; Start 06/07/19 at 09:00 Pantoprazole Sodium (Protonix) 40 mg DAILYAC PO Last administered on 06/12/19 09:24; Start 06/07/19 at 07:30 Rivaroxaban (Xarelto) 10 mg DAILY PO Last administered on 06/12/19 09:24; Start 06/07/19 at 09:00 Non-Formulary Medication (Budesonide/ Formoterol Fumarate (Symbicort 160-4.5 Mcg Inhaler)) 1 puff BID IH ; Start 06/06/19 at 21:00; Stop 06/06/19 at 15:27; Status DC Multivitamins (Thera M Plus) 1 tab DAILY PO Last administered on 06/12/19 09: 24; Start 06/07/19 at 09:00 Potassium Chloride (Klor-Con) 20 meq DAILYWBKFT PO Last administered on 06/12/19 09:24; Start 06/07/19 at 08:00 Non-Formulary Medication (Tiotropium [place] (Spiriva)) 2 inh DAILY IH ; Start 06/07/19 at 09:00; Stop 06/06/19 at 15:28; Status DC Budesonide (Pulmicort) 0.5 mg RTBID NEB Last administered on 06/12/19at 07:12; Start 06/06/19 at 20:00 Albuterol Sulfate (Ventolin Neb Soln) 2.5 mg RTQID NEB ; Start 06/06/19 at 16:00; Stop 06/06/19 at 15:35; Status DC Albuterol/ Ipratropium (Duoneb) 3 ml RTQID NEB Last administered on 06/12/19at 11:34; Start 06/06/19 at 16:00 Isosorbide Mononitrate (Imdur) 60 mg DAILY PO Last administered on 06/08/19at 08:55; Start 06/07/19 at 09:00; Stop 06/08/19 at 14:44; Status DC Hydralazine HCl (Apresoline Inj) 10 mg 1X ONCE IVP Last administered on 06/07/19at 01:44; Start 06/07/19 at 02:00; Stop 06/07/19 at 02:01; Status DC Sodium Chloride 1,000 ml @ 100 mls/hr Q10H ONCE IV Last administered on 06/07/19at 09:45; Start 06/07/19 at 09:45; Stop 06/07/19 at 09:55; Status DC Sodium Chloride 1,000 ml @ 100 mls/hr Q10H IV Last administered on 06/07/19at 11:28; Start 06/07/19 at 09:52; Stop 06/07/19 at 19:51; Status DC Labetalol HCl (Trandate) 200 mg BID PO Last administered on 06/09/19at 09:10; Start 06/07/19 at 10:15; Stop 06/09/19 at 14:39; Status DC Hydralazine HCl (Apresoline Inj) 10 mg 1X ONCE IVP Last administered on 06/07/19at 12:48; Start 06/07/19 at 12:45; Stop 06/07/19 at 12:46; Status DC Amlodipine Besylate (Norvasc) 5 mg 1X ONCE PO Last administered on 06/07/19at 12:49; Start 06/07/19 at 12:45; Stop 06/07/19 at 12:46; Status DC Iodixanol (Visipaque 320) 100 ml STK-MED ONCE .ROUTE ; Start 06/07/19 at 15:05; Stop 06/07/19 at 15:06; Status DC Lidocaine HCl (Xylocaine-Mpf 1% 2ml Vial) 2 ml STK-MED ONCE .ROUTE ; Start 06/07/19 at 15:06; Stop 06/07/19 at 15:06; Status DC Heparin Sodium/ Sodium Chloride 500 ml @ As Directed STK-MED ONCE .ROUTE ; Start 06/07/19 at 15:06; Stop 06/07/19 at 15:06; Status DC Fentanyl Citrate (Fentanyl 2ml Vial) 100 mcg STK-MED ONCE .ROUTE ; Start 06/07/19 at 15:36; Stop 06/07/19 at 15:37; Status DC Midazolam HCl (Versed) 2 mg STK-MED ONCE .ROUTE ; Start 06/07/19 at 15:36; Stop 06/07/19 at 15:37; Status DC Heparin Sodium (Porcine) (Heparin Sodium) 10,000 unit STK-MED ONCE .ROUTE ; Start 06/07/19 at 15:36; Stop 06/07/19 at 15:37; Status DC Verapamil HCl (Verapamil) 5 mg STK-MED ONCE .ROUTE ; Start 06/07/19 at 15:37; Stop 06/07/19 at 15:37; Status DC Nitroglycerin (Nitroglycerin) 200 mcg STK-MED ONCE .ROUTE ; Start 06/07/19 at 15:37; Stop 06/07/19 at 15:37; Status DC Hydralazine HCl (Apresoline Inj) 20 mg STK-MED ONCE .ROUTE ; Start 06/07/19 at 15:47; Stop 06/07/19 at 15:48; Status DC Nitroglycerin (Nitroglycerin) 200 mcg 1X ONCE IART Last administered on 06/07/19 16:00; Start 06/07/19 at 16:00; Stop 06/07/19 at 16:01; Status DC Verapamil HCl (Verapamil) 2.5 mg 1X ONCE IART Last administered on 06/07/19at 16:00; Start 06/07/19 at 16:00; Stop 06/07/19 at 16:01; Status DC Heparin Sodium (Porcine) (Heparin Sodium) 2,500 unit 1X ONCE IART Last administered on 06/07/19at 16:00; Start 06/07/19 at 16:00; Stop 06/07/19 at 16:01; Status DC Heparin Sodium/ Sodium Chloride (HEPARIN for ARTERIAL LINE FLUSH) 1,000 unit 1X ONCE IART Last administered on 06/07/19 16:00; Start 06/07/19 at 16:00; Stop 06/07/19 at 16:01; Status DC Midazolam HCl (Versed) 2 mg 1X ONCE IV Last administered on 06/07/19 16:00; Start 06/07/19 at 16:00; Stop 06/07/19 at 16:01; Status DC Fentanyl Citrate (Fentanyl 2ml Vial) 100 mcg 1X ONCE IV Last administered on 06/07/19 16:00; Start 06/07/19 at 16:00; Stop 06/07/19 at 16:01; Status DC Iodixanol (Visipaque 320) 100 ml 1X ONCE IART Last administered on 06/07/19 16:00; Start 06/07/19 at 16:00; Stop 06/07/19 at 16:01; Status DC Lidocaine HCl (Xylocaine-Mpf 1% 2ml Vial) 2 ml 1X ONCE INJ Last administered on 06/07/19 16:00; Start 06/07/19 at 16:00; Stop 06/07/19 at 16:01; Status DC Hydralazine HCl (Apresoline Inj) 10 mg 1X ONCE IVP Last administered on 06/07/19at 16:00; Start 06/07/19 at 16:00; Stop 06/07/19 at 16:01; Status DC Info (CONTRAST GIVEN -- Rx MONITORING) 1 each PRN DAILY PRN MC SEE COMMENTS; Start 06/07/19 at 16:00; Stop 06/09/19 at 15:59; Status DC Sodium Chloride (Normal Saline Flush) 3 ml QSHIFT PRN IV AFTER MEDS AND BLOOD DRAWS; Start 06/07/19 at 16:15 Nitroglycerin (Nitrostat) 0.4 mg PRN Q5MIN PRN SL CHEST PAIN; Start 06/07/19 at 16:15 Labetalol HCl (Normodyne Iv Push) 20 mg STK-MED ONCE IVP ; Start 06/07/19 at 17:17; Stop 06/07/19 at 18:23; Status DC Hydralazine HCl (Apresoline Inj) 10 mg PRN Q4HRS PRN IVP ELEVATED BP, SEE COMMENTS Last administered on 06/09/19at 12:09; Start 06/07/19 at 19:00 Clonidine HCl (Catapres Tts-2) 1 patch WEEKLY TD ; Start 06/14/19 at 09:00 Amlodipine Besylate (Norvasc) 10 mg DAILY PO Last administered on 06/12/19at 09:23; Start 06/08/19 at 15:00 Sodium Chloride 1,000 ml @ 50 mls/hr Q20H IV Last administered on 06/11/19at 22:25; Start 06/09/19 at 12:30 Labetalol HCl (Trandate) 300 mg BID PO Last administered on 06/12/19at 09:24; Start 06/09/19 at 21:00 Info (Anti-Coagulation Monitoring By Pharmacy) 1 each PRN DAILY PRN MC SEE COMMENTS Last administered on 06/10/19at 11:19; Start 06/10/19 at 07:30 Hydralazine HCl (Apresoline) 25 mg TID PO Last administered on 06/12/19at 09:23; Start 06/11/19 at 12:00 Active Scripts Active Reported Hydrochlorothiazide Tablet (Hydrochlorothiazide) 25 Mg Tablet 25 Mg PO DAILY Protonix (Pantoprazole Sodium) 40 Mg Tablet.dr 40 Mg PO DAILYAC Losartan Potassium 100 Mg Tablet 100 Mg PO DAILY Hydroxychloroquine Sulfate 200 Mg Tablet 200 Mg PO DAILY Multivitamins (Multivitamin) 1 Each Tablet 1 Tab PO DAILY Metoprolol Succinate ( Xl ) (Metoprolol Succinate) 100 Mg Tab.er.24h 100 Mg PO DAILY Symbicort 160-4.5 Mcg Inhaler (Budesonide/Formoterol Fumarate) 10.2 Gm Hfa.aer.ad 1 Puff IH BID Spiriva (Tiotropium [place]) 18 Mcg Cap.w.dev 2 Inh IH DAILY Proair Hfa Inhaler (Albuterol Sulfate) 8.5 Gm Hfa.aer.ad 1 Puff INH PRN Q6HRS PRN Xarelto (Rivaroxaban) 10 Mg Tablet 10 Mg PO DAILY Atorvastatin Calcium 40 Mg Tablet 40 Mg PO HS Phoslo (Calcium Acetate) 667 Mg Capsule 1 Cap PO BIDWMEALS K-Tab ER (Potassium Chloride) 20 Meq Tablet.er 20 Meq PO DAILY Furosemide 40 Mg Tablet 40 Mg PO [id number] Vitals/I & O Vital Sign - Last 24 Hours 06/11/19 06/11/19 06/11/19 06/11/19 12:22 12:37 15:00 15:53 Temp 97.6 97.6 Pulse 80 77 Resp 16 B/P (MAP) 176/97 155/85 (108) Pulse Ox 99 99 98 O2 Delivery Room Air Room Air Room Air 06/11/19 06/11/19 06/11/19 06/11/19 19:05 19:37 20:00 22:26 Temp 98.2 98.2 Pulse 85 85 Resp 18 B/P (MAP) 141/75 (97) 141/75 Pulse Ox 98 99 O2 Delivery Room Air Room Air Room Air 06/11/19 06/11/19 06/12/19 06/12/19 22:27 22:35 02:15 03:05 Temp 98.9 98.2 98.9 98.2 Pulse 85 87 83 Resp 18 18 B/P (MAP) 141/75 172/86 (114) 153/82 (105) Pulse Ox 92 96 O2 Delivery Room Air Room Air Room Air 06/12/19 06/12/19 06/12/19 06/12/19 06:59 07:12 08:04 09:23 Temp 98.1 98.1 Pulse 87 87 Resp 18 B/P (MAP) 162/84 (110) 162/84 Pulse Ox 96 100 O2 Delivery Room Air Room Air Room Air 06/12/19 06/12/19 06/12/19 06/12/19 09:23 09:24 09:24 10:09 Temp 98.0 98.0 Pulse 87 87 87 83 Resp 18 B/P (MAP) 162/84 162/84 162/84 160/89 (112) Pulse Ox 98 O2 Delivery Room Air 06/12/19 11:30 Pulse Ox 98 O2 Delivery Room Air Intake and Output 06/11/19 06/11/19 06/12/19 15:00 23:00 07:00 Intake Total 480 ml 240 ml 300 ml Output Total 250 ml 300 ml Balance 480 ml -10 ml 0 ml Nutrition Consultation Dietary Evaluation: Recommendations by RD: Dietary education by RD, Increase Calorie Intake, Protein supplementation Comments: Continue w/cardiac diet as ordered, honor food preferences, and provide snacks as requested REC Ensure w/lunch (chocolate or strawberry) Provided pt w/cardiac diet education Expected Outcomes/Goals: PO intake to meet >75% est needs Interpretation of weight loss: >20% in 1 year Malnutrition Findings: Food and Nutrition Intake (Mod: <75% est energy req 7days Weight Status: Appropriate PAMELA HDZ MD Jun 12, 2019 12:11
[2019-06-12 12:33] LABS: ALBUMIN 2.4 g/dL (3.4-5.0); CALCIUM 8.9 mg/dL (8.5-10.1); CREATININE 2.8 mg/dL (0.6-1.0); PHOSPHORUS 4.1 mg/dL (2.6-4.7); POTASSIUM 4.7 mmol/L (3.5-5.1)
--- NOTE | 2019-06-12 13:02 | PDOC ---
SUBJECTIVE ROS Stable, No CP , No N/V, states good uop, appetite good OBJECTIVE Vital Signs Vital Signs Date Time Temp Pulse Resp B/P (MAP) Pulse Ox O2 Delivery O2 Flow Rate FiO2 06/12/19 11:30 98 Room Air 06/12/19 10:09 98.0 83 18 160/89 (112) 98.0 I & 0 Intake and Output 06/12/19 07:00 Intake Total 1020 ml Output Total 550 ml Balance 470 ml Intake Oral 1020 ml Output Urine Total 550 ml # Voids 4 PHYSICAL EXAM Physical Exam General: No acute distress HEENT: Atraumatic, Mucous membr. 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 Baez as OP and was on Aranesp - none in past few months per patient Plan is to dc today to SNF Recommend close fu of renal function COMMENT/RELEVANT DATA Meds Current Medications Medications (Trade) Dose Ordered Sig/Blaine Start Time Stop Time Status Last Admin Dose Admin Acetaminophen (Tylenol) 650 mg PRN Q4HRS PRN 06/05/19 23:00 06/10/19 22:08 650 MG Albuterol Sulfate (Ventolin Neb Soln) 2.5 mg RTQID 06/06/19 16:00 06/06/19 15:35 DC Albuterol/ Ipratropium (Duoneb) 3 ml RTQID 06/06/19 16:00 06/12/19 11:34 3 ML Amlodipine Besylate (Norvasc) 10 mg DAILY 06/08/19 15:00 06/12/19 09:23 10 MG Atorvastatin Calcium (Lipitor) 40 mg HS 06/06/19 21:00 06/11/19 22:25 40 MG Budesonide (Pulmicort) 0.5 mg RTBID 06/06/19 20:00 06/12/19 07:12 0.5 MG Calcium Acetate (Phoslo) 667 mg BIDWMEALS 06/06/19 17:00 06/12/19 09:23 667 MG Clonidine HCl (Catapres Tts-2) 1 patch WEEKLY 06/14/19 09:00 Fentanyl Citrate (Fentanyl 2ml Vial) 100 mcg 1X ONCE 06/07/19 16:00 06/07/19 16:01 DC 06/07/19 16:00 50 MCG Furosemide (Lasix) 40 mg BID92 06/06/19 15:45 06/09/19 12:51 DC 06/08/19 15:17 40 MG Heparin Sodium (Porcine) (Heparin Sodium) 2,500 unit 1X ONCE 06/07/19 16:00 06/07/19 16:01 DC 06/07/19 16:00 2,500 UNIT Heparin Sodium/ Sodium Chloride (HEPARIN for ARTERIAL LINE FLUSH) 1,000 unit 1X ONCE 06/07/19 16:00 06/07/19 16:01 DC 06/07/19 16:00 1,000 UNIT Hydralazine HCl (Apresoline Inj) 10 mg PRN Q4HRS PRN 06/07/19 19:00 06/09/19 12:09 10 MG Hydralazine HCl (Apresoline) 25 mg TID 06/11/19 12:00 06/12/19 09:23 25 MG Hydrochlorothiazide (Hydrodiuril) 25 mg DAILY 06/06/19 09:00 06/08/19 14:44 DC 06/08/19 10:57 25 MG Hydroxychloroquine Sulfate (Plaquenil) 200 mg DAILY 06/07/19 09:00 06/12/19 09:24 200 MG Info (Anti-Coagulation Monitoring By Pharmacy) 1 each PRN DAILY PRN 06/10/19 07:30 06/10/19 11:19 1 EACH Info (CONTRAST GIVEN -- Rx MONITORING) 1 each PRN DAILY PRN 06/07/19 16:00 06/09/19 15:59 DC Iodixanol (Visipaque 320) 100 ml 1X ONCE 06/07/19 16:00 06/07/19 16:01 DC 06/07/19 16:00 59 ML Isosorbide Mononitrate (Imdur) 60 mg DAILY 06/07/19 09:00 06/08/19 14:44 DC 06/08/19 08:55 60 MG Labetalol HCl (Normodyne Iv Push) 20 mg STK-MED ONCE 06/07/19 17:17 06/07/19 18:23 DC Labetalol HCl (Trandate) 300 mg BID 06/09/19 21:00 06/12/19 09:24 300 MG Lidocaine HCl (Xylocaine-Mpf 1% 2ml Vial) 2 ml 1X ONCE 06/07/19 16:00 06/07/19 16:01 DC 06/07/19 16:00 1 ML Losartan Potassium (Cozaar) 100 mg DAILY 06/06/19 09:00 06/12/19 09:24 100 MG Metoprolol Succinate (Toprol Xl) 100 mg DAILY 06/06/19 09:00 06/07/19 10:04 DC 06/07/19 08:55 100 MG Midazolam HCl (Versed) 2 mg 1X ONCE 06/07/19 16:00 06/07/19 16:01 DC 06/07/19 16:00 1 MG Multivitamins (Thera M Plus) 1 tab DAILY 06/07/19 09:00 06/12/19 09:24 1 TAB Nicardipine HCl 50 mg/Sodium Chloride 250 ml @ 25 mls/hr CONT PRN 06/06/19 02:00 06/06/19 02:15 25 MLS/HR Nitroglycerin (Nitroglycerin) 200 mcg 1X ONCE 06/07/19 16:00 06/07/19 16:01 DC 06/07/19 16:00 200 MCG Nitroglycerin (Nitrostat) 0.4 mg PRN Q5MIN PRN 06/07/19 16:15 Nitroglycerin/ Dextrose 250 ml @ 1.5 mls/hr CONT PRN 06/05/19 22:30 06/06/19 02:17 DC Non-Formulary Medication (Budesonide/ Formoterol Fumarate (Symbicort 160-4.5 Mcg Inhaler)) 1 puff BID 06/06/19 21:00 06/06/19 15:27 DC Non-Formulary Medication (Tiotropium [place] (Spiriva)) 2 inh DAILY 06/07/19 09:00 06/06/19 15:28 DC Ondansetron HCl (Zofran) 4 mg PRN Q8HRS PRN 06/05/19 19:30 06/06/19 19:29 DC Pantoprazole Sodium (Protonix) 40 mg DAILYAC 06/07/19 07:30 06/12/19 09:24 40 MG Potassium Chloride (Klor-Con) 20 meq [id number] 06/07/19 08:00 06/12/19 09:24 20 MEQ Rivaroxaban (Xarelto) 10 mg DAILY 06/07/19 09:00 06/12/19 09:24 10 MG Sodium Chloride 1,000 ml @ 50 mls/hr Q20H 06/09/19 12:30 06/11/19 22:25 50 MLS/HR Sodium Chloride (Normal Saline Flush) 3 ml QSHIFT PRN 06/07/19 16:15 Verapamil HCl (Verapamil) 2.5 mg 1X ONCE 06/07/19 16:00 06/07/19 16:01 DC 06/07/19 16:00 2.5 MG Lab Laboratory Tests Test 06/12/19 12:00 Sodium Level 140 mmol/L (136-145) Potassium Level 4.7 mmol/L (3.5-5.1) Chloride Level 107 mmol/L (98-107) Carbon Dioxide Level 25 mmol/L (21-32) Anion Gap 8 (6-14) Blood Urea Nitrogen 55 mg/dL (7-20) Creatinine 2.8 mg/dL (0.6-1.0) Estimated GFR (Cockcroft-Gault) 21.0 Glucose Level 82 mg/dL (70-99) Calcium Level 8.9 mg/dL (8.5-10.1) Phosphorus Level 4.1 mg/dL (2.6-4.7) Albumin 2.4 g/dL (3.4-5.0) Results All relevant outside records, renal labs, imaging studies, telemetry/EKG's were reviewed. SHEILA CREWS MD Jun 12, 2019 13:02
[2019-06-12 14:07] VITALS: BP 142/73
[2019-06-12 19:55] VITALS: BP 145/80
[2019-06-12] MEDS: ATORVASTATIN CALCIUM 40 MG TABLET. PO SCH (20:47)
[2019-06-12 23:26] VITALS: BP 145/94
[2019-06-13 02:49] VITALS: BP 144/72
[2019-06-13 07:00] VITALS: BP 153/90
[2019-06-13] MEDS: BUDESONIDE 0.5 MG/2 ML NEBU. NEB SCH (07:09)
[2019-06-13] MEDS: IPRATRPIUM/ALBUTEROL 0.5/2.5MG 3 ML NEBU. NEB SCH ×2 (07:09→11:57)
[2019-06-13] MEDS: CALCIUM ACETATE 667 MG CAPSULE PO SCH (08:00)
[2019-06-13] MEDS ORDERED: AMLO10TA8 PO (08:08)
[2019-06-13] MEDS ORDERED: HYDR-2868 PO (08:08)
[2019-06-13] MEDS ORDERED: LABE200T4 PO (08:08)
[2019-06-13] MEDS ORDERED: CLON1PAT6 TD (08:08)
--- NOTE | 2019-06-13 08:10 | SNU/HH DC ---
DISCHARGE ORDERS DISCHARGE INFORMATION: DISCHARGE DATE: Jun 13, 2019 FINAL DIAGNOSIS Problems Medical Problems: (1) Acute exacerbation of CHF (congestive heart failure) Status: Acute (2) Chest pain Status: Acute (3) Hypertensive urgency Status: Acute CONDITION ON DISCHARGE: Stable CODE STATUS: Code Status: Full SHELTER: SNF STAY <30 DAYS: Yes POST DISCHARGE ORDERS: ACTIVITY ORDERS: Activity as tolerated WEIGHT BEARING STATUS: No restrictions BATHING ORDERS: Shower-keep dressing dry DIET AFTER DISCHARGE: Renal CHECKS AFTER DISCHARGE: CHECKS AFTER DISCHARGE: Check blood press - daily, Check your Temp as needed, Weigh Yourself Daily FOLLOW-UP: PHYSICIAN FOLLOW-UP: Dr. Bullock - Nephrology - 1 week TREATMENT/EQUIPMENT ORDERS: Physical Therapy For: Evalulation/Treatment Occupational Therapy For: Evaluation/Treatment DISCHARGE MEDICATIONS: Home Meds Active Scripts Amlodipine Besylate (AMLODIPINE BESYLATE) 10 Mg Tablet, 10 MG PO DAILY for HTN for 30 Days, #30 TAB Prov:PAMELA HDZ MD 06/13/19 Labetalol Hcl (LABETALOL HCL) 200 Mg Tablet, 300 MG PO BID for HTN for 30 Days, #90 TAB Prov:PAMELA HDZ MD 06/13/19 Hydralazine Hcl (HYDRALAZINE HCL) 25 Mg Tablet, 25 MG PO TID for HTN for 30 Days, #90 TAB Prov:PAMELA HDZ MD 06/13/19 Clonidine (CLONIDINE TTS-2 ) 1 Each Patch.tdwk, 1 PATCH TD WEEKLY for HTN for 30 Days, #4 PATCH Prov:PAMELA HDZ MD 06/13/19 Reported Medications Pantoprazole Sodium (PROTONIX ) 40 Mg Tablet.dr, 40 MG PO DAILYAC for GERD, TAB 06/05/19 Hydroxychloroquine Sulfate (HYDROXYCHLOROQUINE SULFATE) 200 Mg Tablet, 200 MG PO DAILY for , TAB 06/05/19 Multivitamin (MULTIVITAMINS) 1 Each Tablet, 1 TAB PO DAILY for , #90 TAB 3 Refills 06/05/19 Budesonide/Formoterol Fumarate (SYMBICORT 160-4.5 MCG INHALER) 10.2 Gm Hfa.aer.ad, 1 PUFF IH BID, INHALER 12/13/18 Tiotropium [place] (SPIRIVA) 18 Mcg Cap.w.dev, 2 INH IH DAILY, #1 INH 0 Refills 12/13/18 Albuterol Sulfate (PROAIR HFA INHALER) 8.5 Gm Hfa.aer.ad, 1 PUFF INH PRN Q6HRS PRN for SHORTNESS OF BREATH, INHALER 0 Refills 12/13/18 Rivaroxaban (XARELTO) 10 Mg Tablet, 10 MG PO DAILY, TAB 12/13/18 Atorvastatin Calcium (ATORVASTATIN CALCIUM) 40 Mg Tablet, 40 MG PO HS for FOR CHOLESTEROL, #30 TAB 0 Refills 12/13/18 Calcium Acetate (PHOSLO) 667 Mg Capsule, 1 CAP PO BIDWMEALS, #90 CAP 5 Refills 06/11/14 Potassium Chloride (K-Tab ER) 20 Meq Tablet.er, 20 MEQ PO DAILY, TAB.SR 05/23/14 Discontinued Reported Medications Hydrochlorothiazide (HYDROCHLOROTHIAZIDE TABLET ) 25 Mg Tablet, 25 MG PO DAILY for DIURETIC, TAB 0 Refills 06/05/19 Losartan Potassium (LOSARTAN POTASSIUM) 100 Mg Tablet, 100 MG PO DAILY for HYPERTENSION, TAB 06/05/19 Metoprolol Succinate (METOPROLOL SUCCINATE ( XL )) 100 Mg Tab.er.24h, 100 MG PO DAILY for FOR HYPERTENSION, #30 TAB 0 Refills 12/13/18 Furosemide (FUROSEMIDE) 40 Mg Tablet, 40 MG PO BID92, TAB 05/23/14 PAMELA HDZ MD Jun 13, 2019 08:10
--- NOTE | 2019-06-13 08:12 | PDOC3 ---
Discharge Summary Visit Information Date of Admission: Jun 05, 2019 Date of Discharge: Jun 13, 2019 Admitting Diagnosis: Hypertensive crisis Final Diagnosis Problems Medical Problems: (1) Acute exacerbation of CHF (congestive heart failure) Status: Acute (2) Chest pain Status: Acute (3) Hypertensive urgency Status: Acute Brief Hospital Course Allergies Allergies Coded Allergies Type Severity Reaction Last Updated Verified No Known Drug Allergies 05/23/14 No Vital Signs Vital Signs Date Time Temp Pulse Resp B/P (MAP) Pulse Ox O2 Delivery O2 Flow Rate FiO2 06/13/19 07:09 99 Room Air 06/13/19 02:49 98.9 87 20 144/72 (96) 98.9 Lab Results Laboratory Tests Test 06/11/19 11:50 06/12/19 12:00 Sodium Level 142 mmol/L (136-145) 140 mmol/L (136-145) Potassium Level 4.6 mmol/L (3.5-5.1) 4.7 mmol/L (3.5-5.1) Chloride Level 108 mmol/L (98-107) 107 mmol/L (98-107) Carbon Dioxide Level 24 mmol/L (21-32) 25 mmol/L (21-32) Anion Gap 10 (6-14) 8 (6-14) Blood Urea Nitrogen 58 mg/dL (7-20) 55 mg/dL (7-20) Creatinine 2.6 mg/dL (0.6-1.0) 2.8 mg/dL (0.6-1.0) Estimated GFR (Cockcroft-Gault) 22.9 21.0 Glucose Level 86 mg/dL (70-99) 82 mg/dL (70-99) Calcium Level 8.7 mg/dL (8.5-10.1) 8.9 mg/dL (8.5-10.1) Phosphorus Level 4.1 mg/dL (2.6-4.7) Albumin 2.4 g/dL (3.4-5.0) Laboratory Tests Test 06/12/19 12:00 Sodium Level 140 mmol/L (136-145) Potassium Level 4.7 mmol/L (3.5-5.1) Chloride Level 107 mmol/L (98-107) Carbon Dioxide Level 25 mmol/L (21-32) Anion Gap 8 (6-14) Blood Urea Nitrogen 55 mg/dL (7-20) Creatinine 2.8 mg/dL (0.6-1.0) Estimated GFR (Cockcroft-Gault) 21.0 Glucose Level 82 mg/dL (70-99) Calcium Level 8.9 mg/dL (8.5-10.1) Phosphorus Level 4.1 mg/dL (2.6-4.7) Albumin 2.4 g/dL (3.4-5.0) Brief Hospital Course Ms Caruso is a 58yo F w/ PMHx AFIB, HTN, Hyperlipidemia, COPD, CKD3, Pulmonary embolus, APS/lupus admitted for complains of chest pain. She described the pain to her left chest as punching sensation lasting few seconds intermittent. No frequent dizziness and no palpitations. She has been noted with PAFIB no associated nausea, vomiting. No jaw or arm discomfort. No frequent indigestion. No exertional CP nor HOBSON. Found with BP 213/155, admitted for hypertensive emergency. BP has been coming down over the course of the weekend. Seen by nephrology, cardiology and neurology. Echo - The left ventricular systolic function is normal and the ejection fraction is within normal range. The Ejection Fraction is 65-70%. There is normal LV segmental wall motion. There is moderate concentric left ventricular hypertrophy. Aortic valve is not well visualized. No significant stenosis or regurgitation noted on doppler imaging. Cannot rule out flail mitral valve chord versus artifact. No significant regurgitation noted, therefore, it is likely an artifact, correlate with clinical exam. Doppler and Color Flow revealed trace regurgitation. RVSP of 51 mm Hg. 06/07: Cardiac Cath 1. Hemodynamics: Left ventricular end-diastolic pressure of 20 mmHg. No pullback gradient across the aortic valve. 2. Coronary angiography: a. The left main coronary artery arose from the left sinus of Valsalva, gave rise to the left anterior descending and left circumflex arteries and did not show any significant stenosis. b. The left anterior descending artery did not show any significant stenosis. c. The left circumflex artery did not show any significant stenosis. d. The right coronary artery was a large and dominant vessel arising from the right sinus of Valsalva that did not show any significant stenosis. Conclusion No significant coronary artery disease 06/10: She is a bit confused about whether she is in a [facility] or hospital, states she likes the care she is getting her. She is asking to leave. No further chest pain or shortness of breath. Still a little mentally foggy today, but alert and oriented. She is feeling very weak today. No change in BUN or Cr, though not at baseline Plan: PT/OT - needs SNF or rehab. Regardless, I have d/w nephrology she needs close monitoring of her renal function. Will need bloodwork on 06/17/19 Plan for skilled discharge today Hypertensive urgency Chest pain, resolved Coronary calcifications per recent CT. LHC showed No significant coronary artery disease on 06/07/19 Headache Findings a small vessel ischemic change, technically age indeterminate without prior imaging for comparison. Lupus/antiphospholipid antibody syndrome with past PE HYPERTENSIVE ENCEPHALOPATHY CKD STAGE 3 No Doppler evidence of greater than 60% stenosis within the renal arteries.Echogenic renal parenchyma, a finding which can be seen with medical renal disease.cr not at goal Small simple appearing renal cysts. Acute on chronic diastolic CHF Valvular insufficiency/diastolic murmur PAFIB - maintaining SR HLP Anemia of chronic disease with prior hx of thrombocytopenia and leukopenia: ruled as an effect from immunosuppression Hx of RA - not sure if she is still on imuran, but claims not being on steroids nor methotrexate anymore. Thyromegaly/nodules: per CT COPD Pulmonary HTN CARDIOLOGY CONSULT neurology consult NEPHROLOGY FOLLOWING CR NOT AT BASELINE 29 min time pt exam, chart review, > 50% of time spent with exam, chart review, pt care coordination General: Alert, Oriented X3, Cooperative, No acute distress Heart: Regular rate, Normal S1, Normal S2, No murmurs, Gallops Lungs: Clear Abdomen: Normal bowel sounds, Soft, No tenderness, No hepatosplenomegaly, No masses Extremities: No clubbing, No cyanosis, No edema, Normal pulses, No tenderness/swelling Skin: No breakdown, No significant lesion Greater than 30 minutes spent on d/c Discharge Information Condition at Discharge: Improved Follow Up: Weeks Disposition/Orders: D/C to Another Facility Scheduled Amlodipine Besylate (Amlodipine Besylate) 10 Mg Tablet, 10 MG PO DAILY for HTN for 30 Days, #30 Prescribed by: PAMELA HDZ MD on 06/13/19 0808 Atorvastatin Calcium (Atorvastatin Calcium) 40 Mg Tablet, 40 MG PO HS for FOR CHOLESTEROL, #30 Ref 0 (Reported) Entered as Reported by: MJ GOMES [facility] on 12/13/18 1401 Last Action: Continued on 06/06/191508 by LAMONT ZARATE MD Budesonide/Formoterol Fumarate (Symbicort 160-4.5 Mcg Inhaler) 10.2 Gm Hfa.aer.ad, 1 PUFF IH BID, (Reported) Entered as Reported by: MJ GOMES [facility] on 12/13/18 1403 Last Action: Converted on 06/06/191508 by LAMONT ZARATE MD Calcium Acetate (Phoslo) 667 Mg Capsule, 1 CAP PO BIDWMEALS, #90 Ref 5 (Reported) Entered as Reported by: MARSHALL NESS on 06/11/14 0938 Last Action: Continued on 06/06/191508 by LAMONT ZARATE MD Clonidine (Clonidine Tts-2 ) 1 Each Patch.tdwk, 1 PATCH TD WEEKLY for HTN for 30 Days, #4 Prescribed by: PAMELA HDZ MD on 06/13/19 0808 Hydralazine Hcl (Hydralazine Hcl) 25 Mg Tablet, 25 MG PO TID for HTN for 30 Days, #90 Prescribed by: PAMELA HDZ MD on 06/13/19 0808 Hydroxychloroquine Sulfate (Hydroxychloroquine Sulfate) 200 Mg Tablet, 200 MG PO DAILY for , (Reported) Entered as Reported by: Bernadette Richey on 06/05/192057 Last Action: Continued on 06/06/191508 by LAMONT ZARATE MD Labetalol Hcl (Labetalol Hcl) 200 Mg Tablet, 300 MG PO BID for HTN for 30 Days, #90 Prescribed by: PAMELA HDZ MD on 06/13/19 0808 Multivitamin (Multivitamins) 1 Each Tablet, 1 TAB PO DAILY for , #90 Ref 3 (Reported) Entered as Reported by: Bernadette Richey on 06/05/192057 Last Action: Converted on 06/06/191508 by LAMONT ZARATE MD Pantoprazole Sodium (Protonix ) 40 Mg Tablet.dr, 40 MG PO DAILYAC for GERD, (Reported) Entered as Reported by: Bernadette Richey on 06/05/192057 Last Action: Continued on 06/06/191508 by LAMONT ZARATE MD Potassium Chloride (K-Tab ER) 20 Meq Tablet.er, 20 MEQ PO DAILY, (Reported) Entered as Reported by: MITRA MORALES on 05/23/14738 Last Action: Converted on 06/06/191508 by LAMONT ZARATE MD Rivaroxaban (Xarelto) 10 Mg Tablet, 10 MG PO DAILY, (Reported) Entered as Reported by: MJ GOMES [facility] on 12/13/181401 Last Action: Continued on 06/06/191508 by LAMONT ZARATE MD Tiotropium [place] (Spiriva) 18 Mcg Cap.w.dev, 2 INH IH DAILY, #1 Ref 0 (Reported) Entered as Reported by: MJ GOMES RP on 12/13/181402 Last Action: Converted on 06/06/191508 by LAMONT ZARATE MD Scheduled PRN Albuterol Sulfate (Proair Hfa Inhaler) 8.5 Gm Hfa.aer.ad, 1 PUFF INH PRN Q6HRS PRN for SHORTNESS OF BREATH, Ref 0 (Reported) Entered as Reported by: MJ GOMES [facility] on 12/13/181402 Last Action: Continued on 06/06/191508 by LAMONT ZARATE MD Discontinued Medications Furosemide (Furosemide) 40 Mg Tablet, 40 MG PO BID92, (Reported) Entered as Reported by: MITRA MORALES on 05/23/14738 Last Action: Continued on 06/06/191508 by LAMONT ZARATE MD Hydrochlorothiazide (Hydrochlorothiazide Tablet ) 25 Mg Tablet, 25 MG PO DAILY for DIURETIC, Ref 0 (Reported) Entered as Reported by: Bernadette Richey on 06/05/192057 Last Action: Continued on 06/05/192303 by Bernadette Richey Losartan Potassium (Losartan Potassium) 100 Mg Tablet, 100 MG PO DAILY for HYPERTENSION, (Reported) Entered as Reported by: Bernadette Richey on 06/05/192057 Last Action: Converted on 06/05/192303 by Bernadette Richey Metoprolol Succinate (Metoprolol Succinate ( Xl )) 100 Mg Tab.er.24h, 100 MG PO DAILY for FOR HYPERTENSION, #30 Ref 0 (Reported) Entered as Reported by: ISIDORO WORTHINGTON RN on 12/13/18 152 Last Action: Continued on 06/05/192303 by PAMELA Arita MD Jun 13, 2019 08:12
--- NOTE | 2019-06-13 08:25 | NUR ---
SS following up with discharge planning. Insurance authorization received this morning. Discharge orders received and phoned and faxed to [facility], ; fax [phone]. Pt will discharge today and go to [facility] at 1215 via [employer] transportation, . Pt and pt's RN notified.
[2019-06-13 09:30] VITALS: BP 165/90
[2019-06-13] MEDS: RIVAROXABAN 10 MG TABLET. PO SCH (09:36)
[2019-06-13] MEDS: MULTIVITAMIN with MINERAL TABLET. PO SCH (09:37)
[2019-06-13] MEDS: PANTOPRAZOLE 40 MG TABLET.DR. PO SCH (09:37)
[2019-06-13] MEDS: POTASSIUM CHLORIDE 20 MEQ TABLET.ER. PO SCH (09:38)
[2019-06-13] MEDS: LABETALOL HCL 200 MG TABLET PO SCH (09:39)
[2019-06-13] MEDS: HYDROXYCHLOROQUINE 200 MG TABLET PO SCH (09:39)
[2019-06-13] MEDS: hydrALAZINE 25 MG TABLET PO SCH (09:39)
[2019-06-13] MEDS: LOSARTAN POTASSIUM 50 MG TABLET. PO SCH (09:40)
--- NOTE | 2019-06-13 09:43 | NUR ---
cinthia would not scan. lot #[id number] bar code [id number]. had to manually administer
--- NOTE | 2019-06-13 10:09 | PDOC ---
SUBJECTIVE ROS Stable, No CP , No N/V, states good uop, appetite good OBJECTIVE Vital Signs Vital Signs Date Time Temp Pulse Resp B/P (MAP) Pulse Ox O2 Delivery O2 Flow Rate FiO2 06/13/19 09:40 86 165/89 06/13/19 07:09 99 Room Air 06/13/19 07:00 98.3 20 98.3 I & 0 Intake and Output 06/13/19 07:00 Intake Total 1940 ml Output Total 1400 ml Balance 540 ml Intake Oral 1940 ml Output Urine Total 1400 ml # Bowel Movements 1 PHYSICAL EXAM Physical Exam General: No acute distress HEENT: Atraumatic, Mucous membr. moist/pink Neck Supple Lungs: Clear to auscultation, Non labored Heart: Regular rate, Normal S1, Normal S2, systolic murmur + Abdomen: Soft, No tenderness Extremities: No cyanosis, No edema Skin: No rash Neuro: Grossly normal Psych/Mental Status: Mental status NL, Mood NL No reid , No CVA or SP tenderness DIAGNOSIS/ASSESSMENT Assessment & Plan RIYA- S/P Cardiac cath 06/07, mostly Cr should start improving in 3-7 days E-Lytes , acid base, Vol status stable, Creat likley plateaued, monitor ,currently no emergent indication for overcoiler supportive care, Monitor, CKD stage 3-Follows with our office, most recent appt with ALFREDO in Apr at presentation at baseline renal function Chest Pain s/p cardiac Cath- Normal Membranous Nephropathy Dx in post Bx Proteinuria at Dx was 8 gm, improved most recent Pr/Cr <200 On ARB - may have to hold due to worsening renal function SLE- Use to follow with Rheumatology (Dr Hill) ,was on Imuran Currently only on Hydroxychloroquine Not seen for long time due to the financial constraints HTN- antihypertensives Anemia- Most recent op Hgb [address] Baez as OP and was on Aranesp - none in past few months per patient Plan is to dc today to SNF Recommend close fu of renal function at PP and CV for Dialysis education with our office COMMENT/RELEVANT DATA Meds Current Medications Medications (Trade) Dose Ordered Sig/Blaine Start Time Stop Time Status Last Admin Dose Admin Acetaminophen (Tylenol) 650 mg PRN Q4HRS PRN 06/05/19 23:00 06/10/19 22:08 650 MG Albuterol Sulfate (Ventolin Neb Soln) 2.5 mg RTQID 06/06/19 16:00 06/06/19 15:35 DC Albuterol/ Ipratropium (Duoneb) 3 ml RTQID 06/06/19 16:00 06/13/19 07:09 3 ML Amlodipine Besylate (Norvasc) 10 mg DAILY 06/08/19 15:00 06/12/19 09:23 10 MG Atorvastatin Calcium (Lipitor) 40 mg HS 06/06/19 21:00 06/12/19 20:47 40 MG Budesonide (Pulmicort) 0.5 mg RTBID 06/06/19 20:00 06/13/19 07:09 0.5 MG Calcium Acetate (Phoslo) 667 mg BIDWMEALS 06/06/19 17:00 06/13/19 08:00 667 MG Clonidine HCl (Catapres Tts-2) 1 patch WEEKLY 06/14/19 09:00 Fentanyl Citrate (Fentanyl 2ml Vial) 100 mcg 1X ONCE 06/07/19 16:00 06/07/19 16:01 DC 06/07/19 16:00 50 MCG Furosemide (Lasix) 40 mg BID92 06/06/19 15:45 06/09/19 12:51 DC 06/08/19 15:17 40 MG Heparin Sodium (Porcine) (Heparin Sodium) 2,500 unit 1X ONCE 06/07/19 16:00 06/07/19 16:01 DC 06/07/19 16:00 2,500 UNIT Heparin Sodium/ Sodium Chloride (HEPARIN for ARTERIAL LINE FLUSH) 1,000 unit 1X ONCE 06/07/19 16:00 06/07/19 16:01 DC 06/07/19 16:00 1,000 UNIT Hydralazine HCl (Apresoline Inj) 10 mg PRN Q4HRS PRN 06/07/19 19:00 06/09/19 12:09 10 MG Hydralazine HCl (Apresoline) 25 mg TID 06/11/19 12:00 06/13/19 09:39 25 MG Hydrochlorothiazide (Hydrodiuril) 25 mg DAILY 06/06/19 09:00 06/08/19 14:44 DC 06/08/19 10:57 25 MG Hydroxychloroquine Sulfate (Plaquenil) 200 mg DAILY 06/07/19 09:00 06/13/19 09:39 200 MG Info (Anti-Coagulation Monitoring By Pharmacy) 1 each PRN DAILY PRN 06/10/19 07:30 06/10/19 11:19 1 EACH Info (CONTRAST GIVEN -- Rx MONITORING) 1 each PRN DAILY PRN 06/07/19 16:00 06/09/19 15:59 DC Iodixanol (Visipaque 320) 100 ml 1X ONCE 06/07/19 16:00 06/07/19 16:01 DC 06/07/19 16:00 59 ML Isosorbide Mononitrate (Imdur) 60 mg DAILY 06/07/19 09:00 06/08/19 14:44 DC 06/08/19 08:55 60 MG Labetalol HCl (Normodyne Iv Push) 20 mg STK-MED ONCE 06/07/19 17:17 06/07/19 18:23 DC Labetalol HCl (Trandate) 300 mg BID 06/09/19 21:00 06/13/19 09:39 300 MG Lidocaine HCl (Xylocaine-Mpf 1% 2ml Vial) 2 ml 1X ONCE 06/07/19 16:00 06/07/19 16:01 DC 06/07/19 16:00 1 ML Losartan Potassium (Cozaar) 100 mg DAILY 06/06/19 09:00 06/13/19 09:40 100 MG Metoprolol Succinate (Toprol Xl) 100 mg DAILY 06/06/19 09:00 06/07/19 10:04 DC 06/07/19 08:55 100 MG Midazolam HCl (Versed) 2 mg 1X ONCE 06/07/19 16:00 06/07/19 16:01 DC 06/07/19 16:00 1 MG Multivitamins (Thera M Plus) 1 tab DAILY 06/07/19 09:00 06/13/19 09:37 1 TAB Nicardipine HCl 50 mg/Sodium Chloride 250 ml @ 25 mls/hr CONT PRN 06/06/19 02:00 06/06/19 02:15 25 MLS/HR Nitroglycerin (Nitroglycerin) 200 mcg 1X ONCE 06/07/19 16:00 06/07/19 16:01 DC 06/07/19 16:00 200 MCG Nitroglycerin (Nitrostat) 0.4 mg PRN Q5MIN PRN 06/07/19 16:15 Nitroglycerin/ Dextrose 250 ml @ 1.5 mls/hr CONT PRN 06/05/19 22:30 06/06/19 02:17 DC Non-Formulary Medication (Budesonide/ Formoterol Fumarate (Symbicort 160-4.5 Mcg Inhaler)) 1 puff BID 06/06/19 21:00 06/06/19 15:27 DC Non-Formulary Medication (Tiotropium [place] (Spiriva)) 2 inh DAILY 06/07/19 09:00 06/06/19 15:28 DC Ondansetron HCl (Zofran) 4 mg PRN Q8HRS PRN 06/05/19 19:30 06/06/19 19:29 DC Pantoprazole Sodium (Protonix) 40 mg DAILYAC 06/07/19 07:30 06/13/19 09:37 40 MG Potassium Chloride (Klor-Con) 20 meq DAILYWBKFT 06/07/19 08:00 06/13/19 09:38 20 MEQ Rivaroxaban (Xarelto) 10 mg DAILY 06/07/19 09:00 06/13/19 09:36 10 MG Sodium Chloride 1,000 ml @ 50 mls/hr Q20H 06/09/19 12:30 06/12/19 17:43 DC 06/11/19 22:25 50 MLS/HR Sodium Chloride (Normal Saline Flush) 3 ml QSHIFT PRN 06/07/19 16:15 Verapamil HCl (Verapamil) 2.5 mg 1X ONCE 06/07/19 16:00 06/07/19 16:01 DC 06/07/19 16:00 2.5 MG Lab Laboratory Tests Test 06/12/19 12:00 Sodium Level 140 mmol/L (136-145) Potassium Level 4.7 mmol/L (3.5-5.1) Chloride Level 107 mmol/L (98-107) Carbon Dioxide Level 25 mmol/L (21-32) Anion Gap 8 (6-14) Blood Urea Nitrogen 55 mg/dL (7-20) Creatinine 2.8 mg/dL (0.6-1.0) Estimated GFR (Cockcroft-Gault) 21.0 Glucose Level 82 mg/dL (70-99) Calcium Level 8.9 mg/dL (8.5-10.1) Phosphorus Level 4.1 mg/dL (2.6-4.7) Albumin 2.4 g/dL (3.4-5.0) Results All relevant outside records, renal labs, imaging studies, telemetry/EKG's were reviewed. SHEILA CREWS MD Jun 13, 2019 10:09
[2019-06-13 10:20] VITALS: BP 165/89
[2019-06-13] MEDS: amLODIPine BESYLATE 10 MG TABLET PO SCH (10:20)
--- NOTE | 2019-06-13 11:19 | NUR ---
Report called to [facility] at approx 1121. Citlali at [facility] called back also on questions that she had at [phone].
--- NOTE | 2019-06-13 14:33 | NUR ---
Patient left the facility at approx 1230 and was trasported to [facility]. Family notified. Patient left with all belongings.
[2019-06-14] MEDS ORDERED: cloNIDine TTS-2 1 PATCH PATCH TD SCH (09:00)
== END 2019-06-13 12:40 | DRG 286 ==
LOC: ER 17:27 → 2 SOUTH 19:17
PROVIDERS: ADMIT Internal Medicine; ATTEND Internal Medicine
PROC: 4A023N7 Measurement of Cardiac Sampling and Pressure, Left Heart, Percutaneous Approach (ICD-10-PCS; principal; 2019-06-07)
PROC: B2111ZZ Fluoroscopy of Multiple Coronary Arteries using Low Osmolar Contrast (ICD-10-PCS; 2019-06-07)
DX: I16.1 Hypertensive emergency (principal); I50.33 Acute on chronic diastolic (congestive) heart failure; I25.110 Atherosclerotic heart disease of native coronary artery with unstable angina pectoris; F05 Delirium due to known physiological condition; D68.61 Antiphospholipid syndrome; N17.9 Acute kidney failure, unspecified; I67.4 Hypertensive encephalopathy; I13.0 Hypertensive heart and chronic kidney disease with heart failure and stage 1 through stage 4 chronic kidney disease, or unspecified chronic kidney disease; D63.8 Anemia in other chronic diseases classified elsewhere; E04.2 Nontoxic multinodular goiter; E78.5 Hyperlipidemia, unspecified; I27.20 Pulmonary hypertension, unspecified; M19.90 Unspecified osteoarthritis, unspecified site; I48.91 Unspecified atrial fibrillation; J30.9 Allergic rhinitis, unspecified; J44.9 Chronic obstructive pulmonary disease, unspecified; K21.9 Gastro-esophageal reflux disease without esophagitis; M06.9 Rheumatoid arthritis, unspecified; N18.3 Chronic kidney disease, stage 3 (moderate); N28.1 Cyst of kidney, acquired; Z82.49 Family history of ischemic heart disease and other diseases of the circulatory system; Z86.711 Personal history of pulmonary embolism; M32.9 Systemic lupus erythematosus, unspecified
CPT/HCPCS: 36415; 36600; 70450; 71046; 76770; 80048; 80053; 80069; 82553; 83540; 83550; 83735; 83880; 84484; 85025; 85045; 85610; 85730; 93005; 93308; 93458; 94640; 94760; 96374; 96375; 99152; C1769; C1892; J0360; J1644; J2250; J3010; J3490; J7030; J7050; J7613; J7620; J7626; Q9967; 97535; 99285-25; G0378

== ENCOUNTER 2019-06-28 11:23 | Inpatient (IN) | payer BC ==
[~2019-06-28] VITALS: Ht 167.6 cm; Wt 66.5 kg
[~2019-06-28 11:23] MED LIST changes: +AMLO10TA8 PO; +CLON1PAT6 TD; +HYDR-2145 PO; +HYDR-2868 PO; +HYDR200T5 PO; +LABE200T4 PO; +LOSA100T14 PO; +MULT1TAB52 PO
[2019-06-28 12:09] LABS: BASO % 0 % (0-3); EOS % 1 % (0-3); HEMATOCRIT 22.4 % (36.0-47.0); HEMOGLOBIN 7.4 g/dL (12.0-15.5); LYMPH # 0.9 x10^3/uL (1.0-4.8); LYMPH % 14 % (24-48); MEAN CORPUSCULAR HEMOGLOBIN 31 pg (25-35); MEAN CORPUSCULAR HGB CONC 33 g/dL (31-37); MEAN CORPUSCULAR VOLUME 93 fL (79-100); MONO # 0.5 x10^3/uL (0.0-1.1); MONO % 9 % (0-9); NEUT # 4.7 x10^3/uL (1.8-7.7); NEUT % 76 % (31-73); PLATELET COUNT 171 x10^3/uL (140-400); RED CELL DISTRIBUTION WIDTH 17.8 % (11.5-14.5); WHITE BLOOD COUNT 6.2 x10^3/uL (4.0-11.0)
--- NOTE | 2019-06-28 12:15 | EKG ---
[facility] [address] [place] [address] Test Date: 2019-06-28 Test Time: 11:38:22 Pat Name: INA GRANT Department: Room: Gender: F Car Wiper: : 1960 Requested By: CARMEN LYNCH Order Number: [id number] Reading MD: Measurements Intervals Protem Rate: 77 P: 144 DE: 182 QRS: -27 QRSD: 92 T: 17 QT: 408 QTc: 464 Interpretive Statements SINUS RHYTHM LEFT ATRIAL ABNORMALITY LEFTWARD AXIS QRS(T) CONTOUR ABNORMALITY CONSISTENT WITH INFERIOR INFARCT PROBABLY OLD ABNORMAL ECG RI6.01 No previous ECG available for comparison
[2019-06-28 12:21] LABS: CALCIUM 9.3 mg/dL (8.5-10.1); CREATININE 2.5 mg/dL (0.6-1.0); GFR 23.9
[2019-06-28 12:26] LABS: ALBUMIN 2.5 g/dL (3.4-5.0); ALBUMIN/GLOBULIN RATIO 0.4 (1.0-1.7); TOTAL BILIRUBIN 0.4 mg/dL (0.2-1.0); TOTAL PROTEIN 8.3 g/dL (6.4-8.2)
[2019-06-28 12:27] LABS: PROTHROMBIN TIME PATIENT 16.7 SEC (11.7-14.0)
[2019-06-28] MEDS ORDERED: IPRATRPIUM/ALBUTEROL 0.5/2.5MG 3 ML NEBU. NEB ONE (12:30)
[2019-06-28 12:36] LABS: D-DIMER 2.63 ug/mlFEU (0.00-0.50)
--- NOTE | 2019-06-28 12:48 | RAD ---
CHEST AP ONLY 06/28/2019 11:58 AM INDICATION: Shortness of air COMPARISON: 06/05/2019 TECHNIQUE: Portable frontal view of the chest is provided. FINDINGS: The cardiomediastinal silhouette is similar in appearance. Increased patchy airspace disease noted in the right upper lobe. Nodular opacity identified in the left hilar region. Findings may represent multifocal pneumonia. Trace right pleural effusion with adjacent compressive atelectasis versus infiltrate. No pulmonary vascular congestion or pneumothorax. IMPRESSION: Increased patchy airspace disease in the right upper lobe and left hilar region. Findings may represent multifocal pneumonia. Recommend follow up to resolution. Trace right pleural effusion with adjacent compressive atelectasis versus infiltrate. Electronically signed by: Claudia Todd MD (06/28/2019 12:45 PM) [id number]
--- NOTE | 2019-06-28 13:30 | PHYS DOC ---
Past Medical History Past Medical History: A-Fib, Anemia, Asthma, CHF, GERD, High Cholesterol, Hypertension, Renal Disease, Renal Failure, Other Additional Past Medical Histor: PE Past Surgical History: No Surgical History Alcohol Use: None Drug Use: None Adult General Chief Complaint Chief Complaint: SHORTNESS OF BREATH HPI HPI Patient is a 59 year old female who [facility] department [facility] with reports of high blood pressure. On arrival patient complains of intermittent left shoulder pain, shortness of breath, and bilateral swelling of her lower extremities last 4 days. Patient states she has been off of her blood thinners for 4 months. She has a history of PEs in the that she was taking the blood thinners for. Patient also reports chills, generalized fatigue, and joint stiffness. She currently rates her pain a 7/10 on the pain scale, she denies any alleviating factors. She denies any headache, slurred speech, numbness, or tingling. Review of Systems Review of Systems Constitutional: Denies fever or chills [] Eyes: Denies change in visual acuity, redness, or eye pain [] HENT: Denies nasal congestion or sore throat [] Respiratory: see HPI Cardiovascular: No additional information not addressed in HPI [] GI: Denies abdominal pain, nausea, vomiting,or diarrhea [] : Denies dysuria or hematuria [] Musculoskeletal: see HPI Integument: Denies rash or skin lesions [] Neurologic: Denies headache, focal weakness or sensory changes [] Endocrine: Denies polyuria or polydipsia [] Complete systems were reviewed and found to be within normal limits, except as documented in this note. Current Medications Current Medications Current Medications Medications (Trade) Dose Ordered Sig/Blaine Start Time Stop Time Status Last Admin Dose Admin Albuterol/ Ipratropium (Duoneb) 3 ml 1X ONCE 06/28/19 12:30 06/28/19 12:31 DC 06/28/19 12:30 3 ML Allergies Allergies Allergies Coded Allergies Type Severity Reaction Last Updated Verified No Known Drug Allergies 05/23/14 No Physical Exam Physical Exam Constitutional: Well developed, well nourished, no acute distress, ill appearance. [] HENT: Normocephalic, atraumatic, bilateral external ears normal, oropharynx mois t, no oral exudates, nose normal. [] Eyes: PERRLA, EOMI, conjunctiva normal, no discharge. [] Neck: Normal range of motion, no stridor. [] Cardiovascular:Heart rate regular rhythm, no murmur [] Lungs & Thorax: bilateral lung sounds coarse throughout and diminished in bases, mild tachynpnea, speaking full sentences Abdomen: Bowel sounds normal, soft, no tenderness, no masses, no pulsatile masses. [] Skin: Warm, dry, no erythema, no rash. [] Back: No tenderness Extremities: No tenderness, no cyanosis, no clubbing, ROM intact, no edema. [] Neurologic: Alert and oriented X 3, no focal deficits noted. [] Psychologic: Affect normal, judgement normal, mood normal. [] Current Patient Data Vital Signs Vital Signs Date Time Temp Pulse Resp B/P (MAP) Pulse Ox O2 Delivery O2 Flow Rate FiO2 06/28/19 13:13 78 24 160/94 (116) 92 Room Air 06/28/19 11:34 97.5 97.5 Lab Values Laboratory Tests Test 06/28/19 11:45 06/28/19 13:50 White Blood Count 6.2 x10^3/uL (4.0-11.0) Red Blood Count 2.40 x10^6/uL (3.50-5.40) L Hemoglobin 7.4 g/dL (12.0-15.5) L Hematocrit 22.4 % (36.0-47.0) L Mean Corpuscular Volume 93 fL (79-100) Mean Corpuscular Hemoglobin 31 pg (25-35) Mean Corpuscular Hemoglobin Concent 33 g/dL (31-37) Red Cell Distribution Width 17.8 % (11.5-14.5) H Platelet Count 171 x10^3/uL (140-400) Neutrophils (%) (Auto) 76 % (31-73) H Lymphocytes (%) (Auto) 14 % (24-48) L Monocytes (%) (Auto) 9 % (0-9) Eosinophils (%) (Auto) 1 % (0-3) Basophils (%) (Auto) 0 % (0-3) Neutrophils # (Auto) 4.7 x10^3/uL (1.8-7.7) Lymphocytes # (Auto) 0.9 x10^3/uL (1.0-4.8) L Monocytes # (Auto) 0.5 x10^3/uL (0.0-1.1) Eosinophils # (Auto) 0.0 x10^3/uL (0.0-0.7) Basophils # (Auto) 0.0 x10^3/uL (0.0-0.2) Prothrombin Time 16.7 SEC (11.7-14.0) H Prothrombin Time INR 1.4 (0.8-1.1) H Activated Partial Thromboplast Time 36 SEC (24-38) D-Dimer (Vickie) 2.63 ug/mlFEU (0.00-0.50) H Sodium Level 145 mmol/L (136-145) Potassium Level 5.0 mmol/L (3.5-5.1) Chloride Level 110 mmol/L (98-107) H Carbon Dioxide Level 23 mmol/L (21-32) Anion Gap 12 (6-14) Blood Urea Nitrogen 81 mg/dL (7-20) H Creatinine 2.5 mg/dL (0.6-1.0) H Estimated GFR (Cockcroft-Gault) 23.9 BUN/Creatinine Ratio 32 (6-20) H Glucose Level 105 mg/dL (70-99) H Lactic Acid Level 0.7 mmol/L (0.4-2.0) Calcium Level 9.3 mg/dL (8.5-10.1) Total Bilirubin 0.4 mg/dL (0.2-1.0) Aspartate Amino Transferase (AST) 18 U/L (15-37) Alanine Aminotransferase (ALT) 12 U/L (14-59) L Alkaline Phosphatase 82 U/L (46-116) Troponin I Quantitative < 0.017 ng/mL (0.000-0.055) QM-Fkq-R-Type Natriuretic Peptide 8464 pg/mL (0-124) H Total Protein 8.3 g/dL (6.4-8.2) H Albumin 2.5 g/dL (3.4-5.0) L Albumin/Globulin Ratio 0.4 (1.0-1.7) L Urine Collection Type Unknown Urine Color Yellow Urine Clarity Clear Urine pH 5.0 Urine Specific [place] 1.015 Urine Protein 100 mg/dL (NEG-TRACE) Urine Glucose (UA) Negative mg/dL (NEG) Urine Ketones (Stick) Negative mg/dL (NEG) Urine Blood Negative (NEG) Urine Nitrite Negative (NEG) Urine Bilirubin Negative (NEG) Urine Urobilinogen Dipstick 0.2 mg/dL (0.2 mg/dL) Urine Leukocyte Esterase Trace (NEG) Urine RBC 3-5 /HPF (0-2) Urine WBC 1-4 /HPF (0-4) Urine Squamous Epithelial Cells Mod /LPF Urine Bacteria 0 /HPF (0-FEW) Urine Hyaline Casts Moderate /HPF Urine Mucus Slight /LPF Laboratory Tests 06/28/19 11:45 Laboratory Tests 06/28/19 11:45 Microbiology 06/28/19 Blood Culture - Final, Complete NO GROWTH AFTER 5 DAYS EKG EKG 1138- SR rate 77 no STEMI read by Dr. Martinez[] Radiology/Procedures Radiology/Procedures PROCEDURE: CHEST AP ONLY CHEST AP ONLY 06/28/2019 11:58 AM INDICATION: Shortness of air COMPARISON: 06/05/2019 TECHNIQUE: Portable frontal view of the chest is provided. FINDINGS: The cardiomediastinal silhouette is similar in appearance. Increased patchy airspace disease noted in the right upper lobe. Nodular opacity identified in the left hilar region. Findings may represent multifocal pneumonia. Trace right pleural effusion with adjacent compressive atelectasis versus infiltrate. No pulmonary vascular congestion or pneumothorax. IMPRESSION: Increased patchy airspace disease in the right upper lobe and left hilar region. Findings may represent multifocal pneumonia. Recommend follow up to resolution. Trace right pleural effusion with adjacent compressive atelectasis versus infiltrate. [] Course & Med Decision Making Course & Med Decision Making Pertinent Labs and Imaging studies reviewed. (See chart for details) dx:CHF exacerbation, pneumonia, SOA 1356- Spoke with Dr. Rebolledo who is the admitting physician, and care was assumed following discussion of patient. Patient's vital signs stable. Patient remains afebrile, appears nontoxic, respirations even and unlabored. Patient will be admitted to the [facility] floor. Patient's case and plan of care also discussed with Dr. Martinez [] Dragon Disclaimer Dragon Disclaimer This electronic medical record was generated, in whole or in part, using a voice recognition dictation system. Departure Departure Impression: Primary Impression: Acute exacerbation of CHF (congestive heart failure) Additional Impressions: Pneumonia Shortness of breath Disposition: 09 ADMITTED INPATIENT Admitting Physician: MADELINE (Fullbright) Condition: STABLE Referrals: KESHAWN WINKLER (PCP) Scripts Furosemide (LASIX) 40 Mg Tablet 1 TAB PO DAILY for mild chf on cxr for 5 Days, #5 TAB 0 Refills Prov: SHARA SHEEHAN MD 07/01/19 Guaifenesin (GUAIFENESIN) 100 Mg/5 Ml Liquid 200 MG PO PRN Q4HRS PRN for COUGH for 7 Days, LIQUID Prov: SHARA SHEEHAN MD 07/01/19 Lorazepam (ATIVAN) 0.5 Mg Tablet 0.5 MG PO PRN Q4HRS PRN for ANXIETY / AGITATION, #30 TAB Prov: SHARA SHEEHAN MD 07/01/19 Hydrocodone Bit/Acetaminophen (HYDROCODONE-APAP 5-325 ) 1 Tab Tablet 1 TAB PO PRN Q4HRS PRN for MODERATE-SEVERE PAIN, #30 TAB Prov: SHARA SHEEHAN MD 07/01/19 Problem Qualifiers Primary Impression: Acute exacerbation of CHF (congestive heart failure) Heart failure type: unspecified Qualified Codes: I50.9 - Heart failure, unspecified Additional Impressions: Pneumonia Pneumonia type: due to unspecified organism Laterality: bilateral Lung location: unspecified part of lung Qualified Codes: J18.9 - Pneumonia, unspecified organism CARMEN LYNCH LOAD BLOCKER Jun 28, 2019 13:30
[2019-06-28 14:00] LABS: BILIRUBIN,URINE NEGATIVE (NEG); CLARITY,URINE CLEAR; COLOR,URINE YELLOW; NITRITE,URINE NEGATIVE (NEG); PROTEIN,URINE 100 mg/dL (NEG-TRACE); UROBILINOGEN,URINE 0.2 mg/dL (0.2 mg/dL)
[2019-06-28 14:10] LABS: HYALINE CASTS, URINE MODERATE /HPF; SQUAMOUS EPITHELIAL CELL,UR MOD /LPF
[2019-06-28 14:11] LABS: BACTERIA,URINE 0 /HPF (0-FEW)
--- NOTE | 2019-06-28 14:14 | PDOC1 ---
History and Physical Date of Admission Date of Admission DATE: 06/28/19 TIME: 14:09 Identification/Chief Complaint Chief Complaint SEEN IN ER WITH INC SOB, COUGH, ANKLE EDEMA X 2 DAYS, HAD REFUSED HOME HEALTH ON LAST D/C Past Medical History Past Medical History Past Medical History Past Medical History Past Medical History: A-Fib, Anemia, Asthma, CHF, GERD, High Cholesterol, Hypertension, Renal Disease, Renal Failure, Other Additional Past Medical Histor: PE Past Surgical History: No Surgical History Alcohol Use: None Drug Use: None heavy smoker , stopped apr 2019 Cardiovascular: AFIB, HTN, Hyperlipidemia Pulmonary: COPD, Pulmonary embolus CENTRAL NERVOUS SYSTEM: Other GI: GERD Heme/Onc: Anemia NOS, Other Musculoskeletal: Osteoarthritis Rheumatologic: Rheumatoid arthritis, Other Infectious disease: No pertinent hx Renal/: Chronic renal insuff Endocrine: No pertinent hx, Other (THYROID NODULES) Past Surgical History Past Surgical History: Other Family History Family History: High Cholestrol, Hypertension Social History Smoke: Quit ALCOHOL: none Drugs: None Current Medications Current Medications Current Medications Albuterol/ Ipratropium (Duoneb) 3 ml 1X ONCE NEB Last administered on 06/28/19at 12:30; Start 06/28/19 at 12:30; Stop 06/28/19 at 12:31; Status DC Active Scripts Active Amlodipine Besylate 10 Mg Tablet 10 Mg PO DAILY 30 Days Labetalol Hcl 200 Mg Tablet 300 Mg PO BID 30 Days Hydralazine Hcl 25 Mg Tablet 25 Mg PO TID 30 Days Clonidine Tts-2 (Clonidine) 1 Each Patch.tdwk 1 Patch TD WEEKLY 30 Days Reported Protonix (Pantoprazole Sodium) 40 Mg Tablet.dr 40 Mg PO DAILYAC Hydroxychloroquine Sulfate 200 Mg Tablet 200 Mg PO DAILY Multivitamins (Multivitamin) 1 Each Tablet 1 Tab PO DAILY Symbicort 160-4.5 Mcg Inhaler (Budesonide/Formoterol Fumarate) 10.2 Gm Hfa.aer.ad 1 Puff IH BID Spiriva (Tiotropium [place]) 18 Mcg Cap.w.dev 2 Inh IH DAILY Proair Hfa Inhaler (Albuterol Sulfate) 8.5 Gm Hfa.aer.ad 1 Puff INH PRN Q6HRS PRN Xarelto (Rivaroxaban) 10 Mg Tablet 10 Mg PO DAILY Atorvastatin Calcium 40 Mg Tablet 40 Mg PO HS Phoslo (Calcium Acetate) 667 Mg Capsule 1 Cap PO BIDWMEALS K-Tab ER (Potassium Chloride) 20 Meq Tablet.er 20 Meq PO DAILY Allergies Allergies: Coded Allergies: No Known Drug Allergies (Unverified , 05/23/14) ROS Review of System Respiratory: cough// shortness of breath [] Cardiovascular: No additional information not addressed in HPI [] GI: Denies abdominal pain, nausea, vomiting, bloody stools or diarrhea [] : Denies dysuria or hematuria [] Musculoskeletal: Denies back pain or joint pain [] Integument: Denies rash or skin lesions [] Neurologic: Denies headache, focal weakness or sensory changes [] Endocrine: Denies polyuria or polydipsia [] 14 pt systems were reviewed and found to be within normal limits, except as documented General: YES: Chills, Fatigue, Malaise PSYCHOLOGICAL ROS: YES: Anxiety ALLERGY AND IMMUNOLOGY: No: Hives, Insect Bite Sensitivity, Itchy/Watery Eyes, Nasal Congestion, Post Nasal Drip, Seasonal Allergies, Other Respiratory: YES: Cough, Shortness of breath, SOB with excertion, Sputum Changes, Tachypnea Gastrointestinal: No Nausea, No Vomiting, No Abdominal Pain, No Diarrhea, No Constipation, No Melena, No Hematochezia, No Other Musculoskeletal: Yes Joint Stiffness Physical Exam Physical Exam Lungs & Thorax: Bilateral breath sounds coarse [] Abdomen: Bowel sounds normal, soft, no tenderness, no masses, no pulsatile kalani s. [] Skin: Warm, dry, no erythema, no rash. [] Back: No tenderness, no CVA tenderness. [] Extremities: No tenderness, no cyanosis, no clubbing, ROM intact, no edema. [] Neurologic: Alert and oriented X 3, normal motor function, normal sensory function, no focal deficits noted. [] Psychologic: Affect normal, judgement normal, mood normal. [] General: Alert, Oriented X3, Cooperative, mild distress HEENT: Atraumatic, EOMI, Mucous membr. moist/pink Breasts: Not examined Abdomen: Normal bowel sounds, Soft Rectal Exam: not examined PELVIC: Examination not indicated Extremities: No cyanosis Neuro: Normal speech, Cranial nerves 3-12 NL Psych/Mental Status: Mood NL Vitals Vitals Vital Signs Date Time Temp Pulse Resp B/P (MAP) Pulse Ox O2 Delivery O2 Flow Rate FiO2 06/28/19 12:57 92 Room Air 06/28/19 11:34 97.5 81 20 172/94 (120) 97.5 Labs Labs Mitral Valve MV E Velocity 116.7cm/s MV DECEL TIME 227ms MV A Velocity 101.4cm/s MV PHT 66ms E/A Ratio 1.2 MVA (PHT) 3.35cm2 TDI E/Lateral E' 13.4 E/Medial E' 16.3 Tricuspid Valve TR P. Velocity 341cm/s RAP ESTIMATE 3mmHg TR Peak Gr. 46mmHg RVSP 49mmHg Pulmonary Vein S1 Velocity 76.7cm/s D2 Velocity 59.4cm/s LEFT VENTRICLE The left ventricle is normal size. There is mild to moderate concentric left ventricular hypertrophy. The left ventricular systolic function is normal. The Ejection Fraction is 60-65%. There is normal LV segmental wall motion. RIGHT VENTRICLE The right ventricle is normal size. The right ventricular systolic function is normal. ATRIA The left atrium size is normal. The right atrium size is normal. The interatrial septum is intact with no evidence for an atrial septal defect or patent foramen ovale as noted on 2-D or Doppler imaging. AORTIC VALVE The aortic valve is calcified and displays decreased opening. Doppler and Color Flow revealed no significant aortic regurgitation. Calculated aortic valve area is 1.6 cm2 with maximum pressure gradient of 54 mmHg and mean pressure gradient of 23 mmHg. Doppler and color-flow analysis revealed mild aortic stenosis. MITRAL VALVE The mitral valve is calcified but opens well. Mitral annular calcification is moderate. There is no evidence of mitral valve prolapse. There is no mitral valve stenosis. Doppler and Color-flow revealed trace mitral regurgitation. TRICUSPID VALVE The tricuspid valve is normal in structure and function. Doppler and Color Flow revealed mild tricuspid regurgitation. There is moderate pulmonary hypertension. The PA pressure was estimated at 49 mmHg. There is no tricuspid valve stenosis. PULMONIC VALVE The pulmonic valve is not well visualized. Doppler and Color Flow revealed mild pulmonic valvular regurgitation. There is no pulmonic valvular stenosis. GREAT VESSELS The aortic root is normal in size. The ascending aorta is normal in size. The IVC is normal in size and collapses >50% with inspiration. PERICARDIAL EFFUSION There is no evidence of significant pericardial effusion. Critical Notification Critical Value: No <Conclusion> The left ventricular systolic function is normal. The Ejection Fraction is 60-65%. There is normal LV segmental wall motion. Mild aortic stenosis. Trace mitral regurgitation. Mild tricuspid regurgitation. The PA pressure was estimated at 49 mmHg. There is no evidence of significant pericardial effusion. Signed by : Jossue Mills, Electronically Approved : 12/13/2018 14:42:20 HISTORY: Hypertension. TECHNIQUE: Holm scale and color Doppler sonographic imaging of the kidneys and renal arteries with spectral waveform analysis was performed. COMPARISON: None. FINDINGS: The right kidney measures 10.2 cm [id number] and the left kidney measures 9.6 cm [id number]. There are small cysts within the right kidney measuring 1.5 cm and 0.7 cm. There is a single cyst within the left kidney measuring 0.8 cm. The renal parenchyma is echogenic. There is no hydronephrosis. The bladder is unremarkable. The peak systolic velocity within the right renal artery is 122 cm/s. The peak systolic velocity within the left renal artery is 86 cm/s. There are normal renal artery to aorta velocity ratios. IMPRESSION: 1. No Doppler evidence of greater than 60% stenosis within the renal arteries. 2. Echogenic renal parenchyma, a finding which can be seen with medical renal disease. 3. Small simple appearing renal cysts. Electronically signed by: Giovanna Rodriguez MD (06/06/2019 3:41 PM) [facility] DICTATED and SIGNED BY: GIOVANNA RODRIGUEZ MD DATE: 06/06/19 1541 CHEST AP ONLY 06/28/2019 11:58 AM INDICATION: Shortness of air COMPARISON: 06/05/2019 TECHNIQUE: Portable frontal view of the chest is provided. FINDINGS: The cardiomediastinal silhouette is similar in appearance. Increased patchy airspace disease noted in the right upper lobe. Nodular opacity identified in the left hilar region. Findings may represent multifocal pneumonia. Trace right pleural effusion with adjacent compressive atelectasis versus infiltrate. No pulmonary vascular congestion or pneumothorax. IMPRESSION: Increased patchy airspace disease in the right upper lobe and left hilar region. Findings may represent multifocal pneumonia. Recommend follow up to resolution. Trace right pleural effusion with adjacent compressive atelectasis versus infiltrate. Electronically signed by: Abdi Mcpherson MD (06/28/2019 12:45 PM) [facility] DICTATED and SIGNED BY: ABDI MCPHERSON MD DATE: 06/28/19 1245 Laboratory Tests Test 06/28/19 11:45 White Blood Count 6.2 x10^3/uL (4.0-11.0) Red Blood Count 2.40 x10^6/uL (3.50-5.40) Hemoglobin 7.4 g/dL (12.0-15.5) Hematocrit 22.4 % (36.0-47.0) Mean Corpuscular Volume 93 fL (79-100) Mean Corpuscular Hemoglobin 31 pg (25-35) Mean Corpuscular Hemoglobin Concent 33 g/dL (31-37) Red Cell Distribution Width 17.8 % (11.5-14.5) Platelet Count 171 x10^3/uL (140-400) Neutrophils (%) (Auto) 76 % (31-73) Lymphocytes (%) (Auto) 14 % (24-48) Monocytes (%) (Auto) 9 % (0-9) Eosinophils (%) (Auto) 1 % (0-3) Basophils (%) (Auto) 0 % (0-3) Neutrophils # (Auto) 4.7 x10^3/uL (1.8-7.7) Lymphocytes # (Auto) 0.9 x10^3/uL (1.0-4.8) Monocytes # (Auto) 0.5 x10^3/uL (0.0-1.1) Eosinophils # (Auto) 0.0 x10^3/uL (0.0-0.7) Basophils # (Auto) 0.0 x10^3/uL (0.0-0.2) Prothrombin Time 16.7 SEC (11.7-14.0) Prothromb Time International Ratio 1.4 (0.8-1.1) Activated Partial Thromboplast Time 36 SEC (24-38) D-Dimer (Vickie) 2.63 ug/mlFEU (0.00-0.50) Sodium Level 145 mmol/L (136-145) Potassium Level 5.0 mmol/L (3.5-5.1) Chloride Level 110 mmol/L (98-107) Carbon Dioxide Level 23 mmol/L (21-32) Anion Gap 12 (6-14) Blood Urea Nitrogen 81 mg/dL (7-20) Creatinine 2.5 mg/dL (0.6-1.0) Estimated GFR (Cockcroft-Gault) 23.9 BUN/Creatinine Ratio 32 (6-20) Glucose Level 105 mg/dL (70-99) Lactic Acid Level 0.7 mmol/L (0.4-2.0) Calcium Level 9.3 mg/dL (8.5-10.1) Total Bilirubin 0.4 mg/dL (0.2-1.0) Aspartate Amino Transf (AST/SGOT) 18 U/L (15-37) Alanine Aminotransferase (ALT/SGPT) 12 U/L (14-59) Alkaline Phosphatase 82 U/L (46-116) Troponin I Quantitative < 0.017 ng/mL (0.000-0.055) FT-Yao-O-Type Natriuretic Peptide 8464 pg/mL (0-124) Total Protein 8.3 g/dL (6.4-8.2) Albumin 2.5 g/dL (3.4-5.0) Albumin/Globulin Ratio 0.4 (1.0-1.7) Laboratory Tests Test 06/28/19 11:45 White Blood Count 6.2 x10^3/uL (4.0-11.0) Red Blood Count 2.40 x10^6/uL (3.50-5.40) Hemoglobin 7.4 g/dL (12.0-15.5) Hematocrit 22.4 % (36.0-47.0) Mean Corpuscular Volume 93 fL (79-100) Mean Corpuscular Hemoglobin 31 pg (25-35) Mean Corpuscular Hemoglobin Concent 33 g/dL (31-37) Red Cell Distribution Width 17.8 % (11.5-14.5) Platelet Count 171 x10^3/uL (140-400) Neutrophils (%) (Auto) 76 % (31-73) Lymphocytes (%) (Auto) 14 % (24-48) Monocytes (%) (Auto) 9 % (0-9) Eosinophils (%) (Auto) 1 % (0-3) Basophils (%) (Auto) 0 % (0-3) Neutrophils # (Auto) 4.7 x10^3/uL (1.8-7.7) Lymphocytes # (Auto) 0.9 x10^3/uL (1.0-4.8) Monocytes # (Auto) 0.5 x10^3/uL (0.0-1.1) Eosinophils # (Auto) 0.0 x10^3/uL (0.0-0.7) Basophils # (Auto) 0.0 x10^3/uL (0.0-0.2) Prothrombin Time 16.7 SEC (11.7-14.0) Prothromb Time International Ratio 1.4 (0.8-1.1) Activated Partial Thromboplast Time 36 SEC (24-38) D-Dimer (Vickie) 2.63 ug/mlFEU (0.00-0.50) Sodium Level 145 mmol/L (136-145) Potassium Level 5.0 mmol/L (3.5-5.1) Chloride Level 110 mmol/L (98-107) Carbon Dioxide Level 23 mmol/L (21-32) Anion Gap 12 (6-14) Blood Urea Nitrogen 81 mg/dL (7-20) Creatinine 2.5 mg/dL (0.6-1.0) Estimated GFR (Cockcroft-Gault) 23.9 BUN/Creatinine Ratio 32 (6-20) Glucose Level 105 mg/dL (70-99) Lactic Acid Level 0.7 mmol/L (0.4-2.0) Calcium Level 9.3 mg/dL (8.5-10.1) Total Bilirubin 0.4 mg/dL (0.2-1.0) Aspartate Amino Transf (AST/SGOT) 18 U/L (15-37) Alanine Aminotransferase (ALT/SGPT) 12 U/L (14-59) Alkaline Phosphatase 82 U/L (46-116) Troponin I Quantitative < 0.017 ng/mL (0.000-0.055) LG-Zfl-H-Type Natriuretic Peptide 8464 pg/mL (0-124) Total Protein 8.3 g/dL (6.4-8.2) Albumin 2.5 g/dL (3.4-5.0) Albumin/Globulin Ratio 0.4 (1.0-1.7) VTE Prophylaxis Ordered VTE Prophylaxis Devices: Yes VTE Pharmacological Prophylaxi: Yes Assessment/Plan Assessment/Plan IMPRESSION Hypertensive urgency ACUTE COPD EXAC PNEUMONIA on cxr , increased patchy airspace disease in the right upper lobe and left hilar region. Findings may represent multifocal pneumonia. ELEVATED D- DIMER ACUTE ON CHRONIC HYPOXIC RESP FAILURE Chest pain, resolved Coronary calcifications per recent CT. LHC showed No significant coronary artery disease on 06/07/19 Headache Findings a small vessel ischemic change, technically age indeterminate without prior imaging for comparison. Lupus/antiphospholipid antibody syndrome with past PE HYPERTENSIVE ENCEPHALOPATHY CKD STAGE 3 No Doppler evidence of greater than 60% stenosis within the renal arteries.Echogenic renal parenchyma, a finding which can be seen with medical renal disease.cr not at goal Membranous Nephropathy Dx in post Bx Proteinuria at Dx was 8 gm, improved most recent Pr/Cr <200 Small simple appearing renal cysts. Acute on chronic diastolic CHF Valvular insufficiency/diastolic murmur PAFIB - HYPERLIPIDEMIA Anemia of chronic disease with prior hx of thrombocytopenia and leukopenia: ruled as an effect from immunosuppression Thyromegaly/nodules: per CT ANEMIA Pulmonary HTN RECENT PA pressure was estimated at 49 mmHg. ADMIT PULM CONSULT V/Q SCAN STAT CARDIOLOGY CONSULT pulm consult NEPHROLOGY CONSULT CR NOT AT BASELINE emperic iv antibiotics, zosyn, zyvox ID CONSULT DVT PROPHYLAXIS GI PROPHYLAXIS OUT PT THYROID BX PLANNED ABG 44 min time pt exam CC TIME, chart review, > 50% of time spent with exam, chart review, pt care coordination LAMONT ZARATE MD Jun 28, 2019 14:14
[2019-06-28] MEDS ORDERED: PIPERACILLIN/TAZOBACTAM 3.375 GM in IV NORMAL SALINE 50ML 50 ML IV ONE (14:30)
[2019-06-28 15:00] VITALS: BP 171/99
[2019-06-28] MEDS: HYDROXYCHLOROQUINE 200 MG TABLET PO SCH (15:00)
[2019-06-28] MEDS: amLODIPine BESYLATE 10 MG TABLET PO SCH (15:00)
[2019-06-28] MEDS ORDERED: ALBUTEROL SULFATE 2.5 MG/3 ML NEBU. INH PRN (15:00)
--- NOTE | 2019-06-28 15:07 | RAD ---
Examination: LUNG VENT/PERFUSION SCAN(VQ) History: Elevated d-dimer Comparison/Correlation: None 2018 AP view of the chest Findings: 17 mCi xenon-133 gas was administered. Imaging in anterior and posterior projections was performed. Delayed washout of radiotracer which may represent COPD noted. 5.5 mCi technetium 99m MAA was intravenously administered for perfusion imaging. There is a single segmental mismatch defect at the right lower lobe anterior basal region on the lateral projection. Subsegmental mismatch defect involving the right posterior basal and lateral basal segments also on the lateral projection noted. Impression: Less than 2 mismatched right lung basilar segmental perfusion defects. Intermediate probability for pulmonary embolism. COPD. Electronically signed by: Abiodun Soria MD (06/28/2019 3:05 PM) [facility] [place]
[2019-06-28] MEDS ORDERED: IV NORMAL SALINE 1000ML BAG 1,000 ML IV SCH (15:08)
[2019-06-28] MEDS ORDERED: ONDANSETRON PF 4 MG/2 ML VIAL. IV PRN (15:15)
[2019-06-28] MEDS ORDERED: 0.9 % SODIUM CHLORIDE 10 ML DISP.SYRIN. IV PRN (15:15)
[2019-06-28] MEDS ORDERED: LORazepam 0.5 MG TABLET PO PRN (15:15)
[2019-06-28] MEDS: hydrALAZINE 25 MG TABLET PO SCH ×2 (15:45→21:49)
--- NOTE | 2019-06-28 15:51 | NUR ---
Patient arrived from [facility] with 3 Nicotene patches on her left scapula dated 06/22, 06/27 and 06/28. Removed all patches and disposed of. Will continue to monitor patient.
[2019-06-28] MEDS ORDERED: FUROSEMIDE 40 MG/4 ML VIAL. IVP ONE (16:00)
[2019-06-28] MEDS ORDERED: IPRATRPIUM/ALBUTEROL 0.5/2.5MG 3 ML NEBU. NEB SCH (16:00)
[2019-06-28] MEDS: IPRATRPIUM/ALBUTEROL 0.5/2.5MG 3 ML NEBU. NEB SCH ×3 (16:35→23:56)
[2019-06-28] MEDS: CALCIUM ACETATE 667 MG CAPSULE PO SCH (17:00)
[2019-06-28 17:29] LABS: BASE EXCESS COOX -3 mmol/L (-3-3); HCO3 COOX 21 mmol/L (21-28); METHEMOGLOBIN 0.3 % (0.0-1.9); OXYHEMOGLOBIN 93.9 %; PCO2 COOX 34 mmHg (35-46); PO2 COOX 76 mmHg (65-108); SAT O2 COOX 95 % (92-99)
[2019-06-28 19:00] VITALS: BP 174/91
[2019-06-28] MEDS: BUDESONIDE 0.5 MG/2 ML NEBU. NEB SCH (20:20)
[2019-06-28] MEDS ORDERED: RIVAROXABAN 10 MG TABLET. PO SCH (21:30)
[2019-06-28] MEDS: ATORVASTATIN CALCIUM 40 MG TABLET. PO SCH (21:49)
[2019-06-28] MEDS: LABETALOL HCL 100 MG TABLET. PO SCH (21:50)
[2019-06-28 23:00] VITALS: BP 144/80
[2019-06-29] VITALS (7 sets, daily range): BP systolic 121–172; BP diastolic 58–89
[2019-06-29] MEDS: PIPERACILLIN/TAZOBACTAM 3.375 GM in IV NORMAL SALINE 50ML 50 ML IV SCH ×4 (00:31→18:33)
[2019-06-29] MEDS: IPRATRPIUM/ALBUTEROL 0.5/2.5MG 3 ML NEBU. NEB SCH ×6 (04:22→23:36)
[2019-06-29 05:18] LABS: BASO % 0 % (0-3); EOS # 0.1 x10^3/uL (0.0-0.7); EOS % 1 % (0-3); HEMATOCRIT 21.2 % (36.0-47.0); LYMPH # 1.1 x10^3/uL (1.0-4.8); LYMPH % 20 % (24-48); MEAN CORPUSCULAR HEMOGLOBIN 31 pg (25-35); MEAN CORPUSCULAR HGB CONC 33 g/dL (31-37); MEAN CORPUSCULAR VOLUME 93 fL (79-100); MONO # 0.4 x10^3/uL (0.0-1.1); MONO % 8 % (0-9); NEUT # 3.8 x10^3/uL (1.8-7.7); NEUT % 70 % (31-73); PLATELET COUNT 172 x10^3/uL (140-400); RED BLOOD COUNT 2.28 x10^6/uL (3.50-5.40); RED CELL DISTRIBUTION WIDTH 18.3 % (11.5-14.5); WHITE BLOOD COUNT 5.4 x10^3/uL (4.0-11.0)
[2019-06-29 05:37] LABS: ALBUMIN 2.2 g/dL (3.4-5.0); ALBUMIN/GLOBULIN RATIO 0.4 (1.0-1.7); CALCIUM 9.1 mg/dL (8.5-10.1); CREATININE 2.5 mg/dL (0.6-1.0); GFR 23.9; TOTAL BILIRUBIN 0.4 mg/dL (0.2-1.0); TOTAL PROTEIN 7.7 g/dL (6.4-8.2)
[2019-06-29 05:38] LABS: POTASSIUM 4.4 mmol/L (3.5-5.1)
[2019-06-29] MEDS: BUDESONIDE 0.5 MG/2 ML NEBU. NEB SCH ×2 (07:07→19:43)
[2019-06-29] MEDS ORDERED: HYDROcodone/APAP 5/325MG 1 TAB TABLET PO PRN (07:45)
[2019-06-29] MEDS ORDERED: CALCIUM CARBONATE 500 MG TAB.CHEW PO PRN (07:45)
--- NOTE | 2019-06-29 07:55 | PDOC ---
Provider Note Provider Note [id number] acute resp fail acute diastolic chf ae of copd ?vte see orders JUAN M NAPOLES MD Jun 29, 2019 07:55
--- NOTE | 2019-06-29 08:00 | NUR ---
Pt not alert at this time to sign blood consents, attempted to call family multiple times. Dr. Summers aware, d/c RBCs and possible venofer in the am.
--- NOTE | 2019-06-29 08:25 | RAD ---
Bilateral Leg Venous Doppler Ultrasound, 06/29/2019 Indication: Bilateral leg swelling Comparison: None available Procedure: Real-time grayscale, color flow color duplex Doppler and spectral analysis are obtained with and without compression in the area of the common femoral vein, superficial femoral vein - femoral vein junction, main femoral vein (superficial femoral vein) and popliteal vein. Veins of the proximal calf are also imaged. Findings: There is normal duplex flow, color flow and compressibility of all visualized vein segments. No evidence of deep venous thrombus is present. There is soft tissue swelling seen in both lower extremities. Impression: Negative venous Doppler of bilateral lower extremity Electronically signed by: Constanza Barber MD (06/29/2019 8:22 AM) [facility]
[2019-06-29] MEDS: MULTIVITAMIN with MINERAL TABLET. PO SCH (08:29)
[2019-06-29] MEDS: methylPREDNISolone SOD SUCC PF 40 MG/ML VIAL. IV SCH ×3 (08:29→21:49)
[2019-06-29] MEDS: LABETALOL HCL 100 MG TABLET. PO SCH ×2 (08:29→21:50)
[2019-06-29] MEDS: FUROSEMIDE 40 MG/4 ML VIAL. IVP SCH ×2 (08:29→09:00)
[2019-06-29] MEDS: amLODIPine BESYLATE 10 MG TABLET PO SCH (08:30)
[2019-06-29] MEDS: PANTOPRAZOLE 40 MG TABLET.DR. PO SCH (08:30)
[2019-06-29] MEDS: CALCIUM ACETATE 667 MG CAPSULE PO SCH ×2 (08:30→18:33)
[2019-06-29] MEDS: HYDROXYCHLOROQUINE 200 MG TABLET PO SCH (08:30)
[2019-06-29] MEDS: POTASSIUM CHLORIDE 20 MEQ TABLET.ER. PO SCH (08:30)
[2019-06-29] MEDS: hydrALAZINE 25 MG TABLET PO SCH ×3 (08:31→21:50)
--- NOTE | 2019-06-29 09:39 | CONS ---
DATE OF CONSULTATION: 06/29/2019 I was asked to see this 59-year-old lady for acute respiratory failure. HISTORY OF PRESENT ILLNESS: She has history of [id number] smoking, stopped smoking 2 months ago. She does have COPD. She is confused about dates. Apparently, last month, she was in [facility], had cardiac catheterization done, which did not show coronary artery disease. She was sent to [facility], apparently, she was brought to the Emergency Room from [facility]. She has had increased shortness of breath, cough, wheezing, and lower extremity edema. She has runny nose, but denies gastroesophageal reflux symptoms or chest pain. PAST MEDICAL HISTORY: Diastolic CHF, mild aortic stenosis, atrial fibrillation, history of pulmonary embolism. She was on Xarelto until March, anemia, chronic kidney disease. ALLERGIES: No known drug allergies. MEDICATIONS: Currently, she is on clonidine, multivitamin, potassium, Tums, Robitussin, Protonix, Zosyn, Lovenox, DuoNeb bronchodilator, linezolid. SOCIAL HISTORY: History of [id number] smoking, stopped smoking in April. FAMILY HISTORY: There is no history of lung disease. REVIEW OF SYSTEMS: She has had increased lower extremity edema. Other systems are otherwise negative. PHYSICAL EXAMINATION: GENERAL: This is a chronically ill-appearing lady. VITAL SIGNS: Her O2 saturation on 2 liters of oxygen is 94%, respiratory rate 22, heart rate 85, blood pressure 160/79, temperature of 98.2. HEENT: Normocephalic, atraumatic. Pupils equal, round, reactive to light. Throat is clear. Nose is clear. NECK: Positive JVD. No lymphadenopathy or thyromegaly. CARDIOVASCULAR: Regular rate and rhythm. PMI is nondisplaced. CHEST: Inspection is normal. LUNGS: There is bilateral end-expiratory wheezing, bibasilar crackles, dullness at the bases. ABDOMEN: Soft. Bowel sounds are good. There is no mass. EXTREMITIES: There is 3-4+ lower extremity edema. SKIN: Chronic changes. LYMPHATICS: There is no lymphadenopathy. NEUROLOGIC: Alert. LABORATORY DATA: I reviewed the following lab data: Chest x-ray shows increased patchy airspace disease in the right upper lobe and left hilar area. Right, trace pleural effusion. Her V/Q scan did show Less than 2 mismatched right lung basilar segmental perfusion defects. Intermediate probability for pulmonary embolism. Sodium 146, potassium of 4.4, chloride 111, CO2 21, glucose 83, BUN 80, creatinine of 2.5. BNP of 8464. Troponin less than 0.01. Lactic acid 0.7. IMPRESSION: 1. Acute respiratory failure, multifactorial in etiology including acute diastolic congestive heart failure, acute exacerbation of chronic obstructive pulmonary disease? thromboembolic disease versus others. 2. Abnormal chest x-ray. 3. Acute exacerbation of chronic obstructive pulmonary disease. 4. Acute diastolic congestive heart failure. 5. Chronic kidney disease. 6. Ex-smoker. 7. Paroxysmal atrial fibrillation. 8. History of pulmonary embolism. 9. Anemia. 10. Hypertension. PLAN AND RECOMMENDATIONS: 1. Titrate FiO2 to keep O2 saturation 92%. 2. Bronchodilator. 3. Inhaled corticosteroid. 4. Add Solu-Medrol 40 mg IV every 8 hours. 5. Lasix 40 mg IV now. 6. Lower extremity venous Doppler. 7. I do recommend Cardiology consultation. 8. Agree with renal consultation. 9. Continue not smoking. 10. Work up for anemia. Defer to primary doctor. 11. The findings and recommendations were discussed with the patient and RN. The patient understood and agreed to proceed with the plan. Thank you very much for allowing me to participate in care of this very nice lady. JUAN M NAPOLES M.D. : Krupa JOB#: [id number] / [id number] RODNEY
--- NOTE | 2019-06-29 09:43 | PDOC ---
Infectious Disease Note Vital Sign Vital Signs Vital Signs Date Time Temp Pulse Resp B/P (MAP) Pulse Ox O2 Delivery O2 Flow Rate FiO2 06/29/19 08:31 172/89 06/29/19 08:29 83 06/29/19 07:08 87 Nasal Cannula 2.0 06/29/19 07:00 98.3 20 98.3 Labs Lab Laboratory Tests Test 06/28/19 11:45 06/28/19 13:50 06/28/19 15:13 06/29/19 04:30 White Blood Count 6.2 x10^3/uL (4.0-11.0) 5.4 x10^3/uL (4.0-11.0) Red Blood Count 2.40 x10^6/uL (3.50-5.40) 2.28 x10^6/uL (3.50-5.40) Hemoglobin 7.4 g/dL (12.0-15.5) 7.0 g/dL (12.0-15.5) Hematocrit 22.4 % (36.0-47.0) 21.2 % (36.0-47.0) Mean Corpuscular Volume 93 fL (79-100) 93 fL (79-100) Mean Corpuscular Hemoglobin 31 pg (25-35) 31 pg (25-35) Mean Corpuscular Hemoglobin Concent 33 g/dL (31-37) 33 g/dL (31-37) Red Cell Distribution Width 17.8 % (11.5-14.5) 18.3 % (11.5-14.5) Platelet Count 171 x10^3/uL (140-400) 172 x10^3/uL (140-400) Neutrophils (%) (Auto) 76 % (31-73) 70 % (31-73) Lymphocytes (%) (Auto) 14 % (24-48) 20 % (24-48) Monocytes (%) (Auto) 9 % (0-9) 8 % (0-9) Eosinophils (%) (Auto) 1 % (0-3) 1 % (0-3) Basophils (%) (Auto) 0 % (0-3) 0 % (0-3) Neutrophils # (Auto) 4.7 x10^3/uL (1.8-7.7) 3.8 x10^3/uL (1.8-7.7) Lymphocytes # (Auto) 0.9 x10^3/uL (1.0-4.8) 1.1 x10^3/uL (1.0-4.8) Monocytes # (Auto) 0.5 x10^3/uL (0.0-1.1) 0.4 x10^3/uL (0.0-1.1) Eosinophils # (Auto) 0.0 x10^3/uL (0.0-0.7) 0.1 x10^3/uL (0.0-0.7) Basophils # (Auto) 0.0 x10^3/uL (0.0-0.2) 0.0 x10^3/uL (0.0-0.2) Prothrombin Time 16.7 SEC (11.7-14.0) Prothromb Time International Ratio 1.4 (0.8-1.1) Activated Partial Thromboplast Time 36 SEC (24-38) D-Dimer (Vickie) 2.63 ug/mlFEU (0.00-0.50) Sodium Level 145 mmol/L (136-145) 146 mmol/L (136-145) Potassium Level 5.0 mmol/L (3.5-5.1) 4.4 mmol/L (3.5-5.1) Chloride Level 110 mmol/L (98-107) 111 mmol/L (98-107) Carbon Dioxide Level 23 mmol/L (21-32) 21 mmol/L (21-32) Anion Gap 12 (6-14) 14 (6-14) Blood Urea Nitrogen 81 mg/dL (7-20) 80 mg/dL (7-20) Creatinine 2.5 mg/dL (0.6-1.0) 2.5 mg/dL (0.6-1.0) Estimated GFR (Cockcroft-Gault) 23.9 23.9 BUN/Creatinine Ratio 32 (6-20) 32 (6-20) Glucose Level 105 mg/dL (70-99) 83 mg/dL (70-99) Lactic Acid Level 0.7 mmol/L (0.4-2.0) Calcium Level 9.3 mg/dL (8.5-10.1) 9.1 mg/dL (8.5-10.1) Total Bilirubin 0.4 mg/dL (0.2-1.0) 0.4 mg/dL (0.2-1.0) Aspartate Amino Transf (AST/SGOT) 18 U/L (15-37) 15 U/L (15-37) Alanine Aminotransferase (ALT/SGPT) 12 U/L (14-59) 9 U/L (14-59) Alkaline Phosphatase 82 U/L (46-116) 73 U/L (46-116) Troponin I Quantitative < 0.017 ng/mL (0.000-0.055) NS-Arq-U-Type Natriuretic Peptide 8464 pg/mL (0-124) Total Protein 8.3 g/dL (6.4-8.2) 7.7 g/dL (6.4-8.2) Albumin 2.5 g/dL (3.4-5.0) 2.2 g/dL (3.4-5.0) Albumin/Globulin Ratio 0.4 (1.0-1.7) 0.4 (1.0-1.7) Urine Collection Type Unknown Urine Color Yellow Urine Clarity Clear Urine pH 5.0 Urine Specific [place] 1.015 Urine Protein 100 mg/dL (NEG-TRACE) Urine Glucose (UA) Negative mg/dL (NEG) Urine Ketones (Stick) Negative mg/dL (NEG) Urine Blood Negative (NEG) Urine Nitrite Negative (NEG) Urine Bilirubin Negative (NEG) Urine Urobilinogen Dipstick 0.2 mg/dL (0.2 mg/dL) Urine Leukocyte Esterase Trace (NEG) Urine RBC 3-5 /HPF (0-2) Urine WBC 1-4 /HPF (0-4) Urine Squamous Epithelial Cells Mod /LPF Urine Bacteria 0 /HPF (0-FEW) Urine Hyaline Casts Moderate /HPF Urine Mucus Slight /LPF O2 Saturation 95 % (92-99) Arterial Blood pH 7.40 (7.35-7.45) Arterial Blood pCO2 at Patient Temp 34 mmHg (35-46) Arterial Blood pO2 at Patient Temp 76 mmHg (65-108) Arterial Blood HCO3 21 mmol/L (21-28) Arterial Blood Base Excess -3 mmol/L (-3-3) Oxyhemoglobin 93.9 % Methemoglobin 0.3 % (0.0-1.9) Carbon Monoxide, Quantitative 0.4 % (0.0-1.9) FiO2 28% 2l Objective Assessment Pulmonary infiltrate, pneumion not ruled out ? PE Acute on chronic CHF CKD stage 3 Anemia A-fib h/o seizures Plan Plan of Care Zyvox and Zosyn f/u cultures Steroids Maintain aspiration precautions D/w nursing Thank you [id number] Attending Co-Sign The patient was seen and interviewed as well as examined at the bedside. The chart was reviewed. The case was discussed. Agree with the plan of care. FLASH GOMEZ APRN Jun 29, 2019 09:43 JOHN MONAE MD Jun 29, 2019 13:10
--- NOTE | 2019-06-29 10:07 | CONS ---
DATE OF CONSULTATION: 06/29/2019 REQUESTING PHYSICIAN: Bairon Rebolledo MD REASON FOR CONSULTATION: Pneumonia. HISTORY OF PRESENT ILLNESS: This patient is a 59-year-old -[place] female who presents with complaints of worsening shortness of air, cough and increased ankle edema over the last 4 days. She said she tried her nebulizers with some relief. She had sweats without body aches, chills or fevers. Chest x-ray showed increased patchy airspace disease in the right upper lobe and left hilar region along with trace right pleural effusion with adjacent compressive atelectasis versus infiltrate. She is currently Zyvox and Zosyn for pneumonia. ID has been asked to consult for further evaluation and antibiotic management. PAST MEDICAL HISTORY: Chronic kidney disease, stage 3; chronic congestive heart failure; atrial fibrillation; history of seizures; hyperlipidemia; hypertension; COPD; pulmonary embolism; fibroids; rheumatoid arthritis; systemic lupus erythematosus; thyroid nodules. FAMILY HISTORY: Hyperlipidemia and hypertension. SOCIAL HISTORY: The patient lives at home alone. She is a former smoker. No pets. ALLERGIES: No known drug allergies. MEDICATIONS: Zyvox, Zosyn, Solu-Medrol, Pulmicort. Other medications are available and have been reviewed on the MAR. REVIEW OF SYSTEMS: As per HPI, otherwise all other review of systems are negative. PHYSICAL EXAMINATION: VITAL SIGNS: Temperature is 98.3, blood pressure 172/89, heart rate 83, respiratory rate 20, pulse oximetry is 87% on 2 liters oxygen. GENERAL: The patient is propped up in bed, resting quietly, arouses to name. HEENT: Pupils equally round. Oropharynx pink and moist. NECK: Supple. LUNGS: Clear to auscultation. HEART: S1, S2. Murmur present. ABDOMEN: Soft, nontender with bowel sounds present. EXTREMITIES: Pedal edema bilaterally. No cyanosis. SKIN: Warm to touch. No signs of rash. NEUROLOGIC: Arouses to name. Answers questions appropriately. LABORATORY DATA: Today's WBC 5.4, hemoglobin 7.0, platelets 172,000. Creatinine 2.5, BUN is 80, sodium is 146, and potassium is 4.4. Troponin is less than 0.017. BNP 8464. Total bilirubin is 0.4, AST 15, ALT 9. Lactic acid 0.7. Urinalysis unremarkable for infection. Blood cultures pending. Chest x-ray per HPI. V/Q show less than 2 mismatch right lung basilar segmental perfusion defects. Intermediate probability for pulmonary embolism. Lower extremity ultrasound bilaterally showed no evidence of DVT. IMPRESSION: 1. Pulmonary infiltrates, pneumonia not ruled out. 2. Questionable pulmonary embolism. 3. Acute on chronic congestive heart failure. 4. Chronic kidney disease, stage 3. 5. Anemia. 6. Atrial fibrillation. 7. History of seizures. PLAN: Continue Zyvox and Zosyn. We will follow up on culture results. Continue to monitor laboratory values and temperature. Maintain aspiration precautions. Discussed with nursing. Thank you, Dr. Rebolledo, for asking us to participate in this patient's care. Should you have further questions or concerns, please call. JOHN MONAE MD DR: [email or web address]/isai JOB#: [id number] / [id number]
--- NOTE | 2019-06-29 10:27 | PDOC ---
PROGRESS NOTES Chief Complaint Chief Complaint 1. Acute respiratory failure, multifactorial in etiology including acute diastolic congestive heart failure, acute exacerbation of chronic obstructive pulmonary disease? thromboembolic disease versus others. 2. Abnormal chest x-ray. 3. Acute exacerbation of chronic obstructive pulmonary disease. 4. Acute diastolic congestive heart failure. 5. Chronic kidney disease. 6. Ex-smoker. 7. Paroxysmal atrial fibrillation. 8. History of pulmonary embolism. 9. Anemia. 10. Hypertension. 11. Acute precip drop hgb - likely sec to CKD 12. NOrmocytic, chronic anemia 13. MEt enceph History of Present Illness History of Present Illness She came from [facility] and sent bec of ankle swelling - it/s not that marked on exam She answers some qs appropriately, some not SHE wants to go home MUlti specialits were consulted by admitting MD ID, renal, pulmo AbN CXR, hx diastolic HR per records ALso ID bec of "multilobar PNA" NO BM for days Hgb 7, BT ordered, unable to get consent ? or at least she says she doesnt need it or asks "why?" She admits hx of BT in past, but cant tell me reason for anemia CKD creat 3 with low GFR - likely contributing to her anemia PLAn: Im contemplating IV venofer, but might need to check iron panel too first HH tmr Avoid nephrotoxins Added cards consult for diastolic heart failure BOwel regimen today Tomy [place] BT if hgb < 7 IV abx for "HCAP" Vitals Vitals Vital Signs Date Time Temp Pulse Resp B/P (MAP) Pulse Ox O2 Delivery O2 Flow Rate FiO2 06/29/19 10:17 98.8 79 20 148/84 (105) 100 Nasal Cannula 2.0 98.8 Physical Exam General: Alert, Oriented X3, Cooperative, mild distress Lungs: Clear Abdomen: Normal bowel sounds, Soft Extremities: No cyanosis Labs LABS Laboratory Tests Test 06/28/19 11:45 06/28/19 13:50 06/28/19 15:13 06/29/19 04:30 White Blood Count 6.2 x10^3/uL (4.0-11.0) 5.4 x10^3/uL (4.0-11.0) Red Blood Count 2.40 x10^6/uL (3.50-5.40) 2.28 x10^6/uL (3.50-5.40) Hemoglobin 7.4 g/dL (12.0-15.5) 7.0 g/dL (12.0-15.5) Hematocrit 22.4 % (36.0-47.0) 21.2 % (36.0-47.0) Mean Corpuscular Volume 93 fL (79-100) 93 fL (79-100) Mean Corpuscular Hemoglobin 31 pg (25-35) 31 pg (25-35) Mean Corpuscular Hemoglobin Concent 33 g/dL (31-37) 33 g/dL (31-37) Red Cell Distribution Width 17.8 % (11.5-14.5) 18.3 % (11.5-14.5) Platelet Count 171 x10^3/uL (140-400) 172 x10^3/uL (140-400) Neutrophils (%) (Auto) 76 % (31-73) 70 % (31-73) Lymphocytes (%) (Auto) 14 % (24-48) 20 % (24-48) Monocytes (%) (Auto) 9 % (0-9) 8 % (0-9) Eosinophils (%) (Auto) 1 % (0-3) 1 % (0-3) Basophils (%) (Auto) 0 % (0-3) 0 % (0-3) Neutrophils # (Auto) 4.7 x10^3/uL (1.8-7.7) 3.8 x10^3/uL (1.8-7.7) Lymphocytes # (Auto) 0.9 x10^3/uL (1.0-4.8) 1.1 x10^3/uL (1.0-4.8) Monocytes # (Auto) 0.5 x10^3/uL (0.0-1.1) 0.4 x10^3/uL (0.0-1.1) Eosinophils # (Auto) 0.0 x10^3/uL (0.0-0.7) 0.1 x10^3/uL (0.0-0.7) Basophils # (Auto) 0.0 x10^3/uL (0.0-0.2) 0.0 x10^3/uL (0.0-0.2) Prothrombin Time 16.7 SEC (11.7-14.0) Prothromb Time International Ratio 1.4 (0.8-1.1) Activated Partial Thromboplast Time 36 SEC (24-38) D-Dimer (Vickie) 2.63 ug/mlFEU (0.00-0.50) Sodium Level 145 mmol/L (136-145) 146 mmol/L (136-145) Potassium Level 5.0 mmol/L (3.5-5.1) 4.4 mmol/L (3.5-5.1) Chloride Level 110 mmol/L (98-107) 111 mmol/L (98-107) Carbon Dioxide Level 23 mmol/L (21-32) 21 mmol/L (21-32) Anion Gap 12 (6-14) 14 (6-14) Blood Urea Nitrogen 81 mg/dL (7-20) 80 mg/dL (7-20) Creatinine 2.5 mg/dL (0.6-1.0) 2.5 mg/dL (0.6-1.0) Estimated GFR (Cockcroft-Gault) 23.9 23.9 BUN/Creatinine Ratio 32 (6-20) 32 (6-20) Glucose Level 105 mg/dL (70-99) 83 mg/dL (70-99) Lactic Acid Level 0.7 mmol/L (0.4-2.0) Calcium Level 9.3 mg/dL (8.5-10.1) 9.1 mg/dL (8.5-10.1) Total Bilirubin 0.4 mg/dL (0.2-1.0) 0.4 mg/dL (0.2-1.0) Aspartate Amino Transf (AST/SGOT) 18 U/L (15-37) 15 U/L (15-37) Alanine Aminotransferase (ALT/SGPT) 12 U/L (14-59) 9 U/L (14-59) Alkaline Phosphatase 82 U/L (46-116) 73 U/L (46-116) Troponin I Quantitative < 0.017 ng/mL (0.000-0.055) SL-Jys-L-Type Natriuretic Peptide 8464 pg/mL (0-124) Total Protein 8.3 g/dL (6.4-8.2) 7.7 g/dL (6.4-8.2) Albumin 2.5 g/dL (3.4-5.0) 2.2 g/dL (3.4-5.0) Albumin/Globulin Ratio 0.4 (1.0-1.7) 0.4 (1.0-1.7) Urine Collection Type Unknown Urine Color Yellow Urine Clarity Clear Urine pH 5.0 Urine Specific Barry 1.015 Urine Protein 100 mg/dL (NEG-TRACE) Urine Glucose (UA) Negative mg/dL (NEG) Urine Ketones (Stick) Negative mg/dL (NEG) Urine Blood Negative (NEG) Urine Nitrite Negative (NEG) Urine Bilirubin Negative (NEG) Urine Urobilinogen Dipstick 0.2 mg/dL (0.2 mg/dL) Urine Leukocyte Esterase Trace (NEG) Urine RBC 3-5 /HPF (0-2) Urine WBC 1-4 /HPF (0-4) Urine Squamous Epithelial Cells Mod /LPF Urine Bacteria 0 /HPF (0-FEW) Urine Hyaline Casts Moderate /HPF Urine Mucus Slight /LPF O2 Saturation 95 % (92-99) Arterial Blood pH 7.40 (7.35-7.45) Arterial Blood pCO2 at Patient Temp 34 mmHg (35-46) Arterial Blood pO2 at Patient Temp 76 mmHg (65-108) Arterial Blood HCO3 21 mmol/L (21-28) Arterial Blood Base Excess -3 mmol/L (-3-3) Oxyhemoglobin 93.9 % Methemoglobin 0.3 % (0.0-1.9) Carbon Monoxide, Quantitative 0.4 % (0.0-1.9) FiO2 28% 2l Review of Systems Review of Systems constipated, sleepy, weak, all else she denies Assessment and Plan Assessmemt and Plan Problems Medical Problems: (1) Acute exacerbation of CHF (congestive heart failure) Status: Acute (2) Shortness of breath Status: Acute Comment Review of Relevant I have reviewed the following items gregorio (where applicable) has been applied. Labs Laboratory Tests Test 06/28/19 11:45 06/28/19 13:50 06/28/19 15:13 06/29/19 04:30 White Blood Count 6.2 x10^3/uL (4.0-11.0) 5.4 x10^3/uL (4.0-11.0) Red Blood Count 2.40 x10^6/uL (3.50-5.40) 2.28 x10^6/uL (3.50-5.40) Hemoglobin 7.4 g/dL (12.0-15.5) 7.0 g/dL (12.0-15.5) Hematocrit 22.4 % (36.0-47.0) 21.2 % (36.0-47.0) Mean Corpuscular Volume 93 fL (79-100) 93 fL (79-100) Mean Corpuscular Hemoglobin 31 pg (25-35) 31 pg (25-35) Mean Corpuscular Hemoglobin Concent 33 g/dL (31-37) 33 g/dL (31-37) Red Cell Distribution Width 17.8 % (11.5-14.5) 18.3 % (11.5-14.5) Platelet Count 171 x10^3/uL (140-400) 172 x10^3/uL (140-400) Neutrophils (%) (Auto) 76 % (31-73) 70 % (31-73) Lymphocytes (%) (Auto) 14 % (24-48) 20 % (24-48) Monocytes (%) (Auto) 9 % (0-9) 8 % (0-9) Eosinophils (%) (Auto) 1 % (0-3) 1 % (0-3) Basophils (%) (Auto) 0 % (0-3) 0 % (0-3) Neutrophils # (Auto) 4.7 x10^3/uL (1.8-7.7) 3.8 x10^3/uL (1.8-7.7) Lymphocytes # (Auto) 0.9 x10^3/uL (1.0-4.8) 1.1 x10^3/uL (1.0-4.8) Monocytes # (Auto) 0.5 x10^3/uL (0.0-1.1) 0.4 x10^3/uL (0.0-1.1) Eosinophils # (Auto) 0.0 x10^3/uL (0.0-0.7) 0.1 x10^3/uL (0.0-0.7) Basophils # (Auto) 0.0 x10^3/uL (0.0-0.2) 0.0 x10^3/uL (0.0-0.2) Prothrombin Time 16.7 SEC (11.7-14.0) Prothromb Time International Ratio 1.4 (0.8-1.1) Activated Partial Thromboplast Time 36 SEC (24-38) D-Dimer (Vickie) 2.63 ug/mlFEU (0.00-0.50) Sodium Level 145 mmol/L (136-145) 146 mmol/L (136-145) Potassium Level 5.0 mmol/L (3.5-5.1) 4.4 mmol/L (3.5-5.1) Chloride Level 110 mmol/L (98-107) 111 mmol/L (98-107) Carbon Dioxide Level 23 mmol/L (21-32) 21 mmol/L (21-32) Anion Gap 12 (6-14) 14 (6-14) Blood Urea Nitrogen 81 mg/dL (7-20) 80 mg/dL (7-20) Creatinine 2.5 mg/dL (0.6-1.0) 2.5 mg/dL (0.6-1.0) Estimated GFR (Cockcroft-Gault) 23.9 23.9 BUN/Creatinine Ratio 32 (6-20) 32 (6-20) Glucose Level 105 mg/dL (70-99) 83 mg/dL (70-99) Lactic Acid Level 0.7 mmol/L (0.4-2.0) Calcium Level 9.3 mg/dL (8.5-10.1) 9.1 mg/dL (8.5-10.1) Total Bilirubin 0.4 mg/dL (0.2-1.0) 0.4 mg/dL (0.2-1.0) Aspartate Amino Transf (AST/SGOT) 18 U/L (15-37) 15 U/L (15-37) Alanine Aminotransferase (ALT/SGPT) 12 U/L (14-59) 9 U/L (14-59) Alkaline Phosphatase 82 U/L (46-116) 73 U/L (46-116) Troponin I Quantitative < 0.017 ng/mL (0.000-0.055) QY-Elm-R-Type Natriuretic Peptide 8464 pg/mL (0-124) Total Protein 8.3 g/dL (6.4-8.2) 7.7 g/dL (6.4-8.2) Albumin 2.5 g/dL (3.4-5.0) 2.2 g/dL (3.4-5.0) Albumin/Globulin Ratio 0.4 (1.0-1.7) 0.4 (1.0-1.7) Urine Collection Type Unknown Urine Color Yellow Urine Clarity Clear Urine pH 5.0 Urine Specific Barry 1.015 Urine Protein 100 mg/dL (NEG-TRACE) Urine Glucose (UA) Negative mg/dL (NEG) Urine Ketones (Stick) Negative mg/dL (NEG) Urine Blood Negative (NEG) Urine Nitrite Negative (NEG) Urine Bilirubin Negative (NEG) Urine Urobilinogen Dipstick 0.2 mg/dL (0.2 mg/dL) Urine Leukocyte Esterase Trace (NEG) Urine RBC 3-5 /HPF (0-2) Urine WBC 1-4 /HPF (0-4) Urine Squamous Epithelial Cells Mod /LPF Urine Bacteria 0 /HPF (0-FEW) Urine Hyaline Casts Moderate /HPF Urine Mucus Slight /LPF O2 Saturation 95 % (92-99) Arterial Blood pH 7.40 (7.35-7.45) Arterial Blood pCO2 at Patient Temp 34 mmHg (35-46) Arterial Blood pO2 at Patient Temp 76 mmHg (65-108) Arterial Blood HCO3 21 mmol/L (21-28) Arterial Blood Base Excess -3 mmol/L (-3-3) Oxyhemoglobin 93.9 % Methemoglobin 0.3 % (0.0-1.9) Carbon Monoxide, Quantitative 0.4 % (0.0-1.9) FiO2 28% 2l Laboratory Tests Test 06/28/19 11:45 06/28/19 13:50 06/28/19 15:13 06/29/19 04:30 White Blood Count 6.2 x10^3/uL (4.0-11.0) 5.4 x10^3/uL (4.0-11.0) Red Blood Count 2.40 x10^6/uL (3.50-5.40) 2.28 x10^6/uL (3.50-5.40) Hemoglobin 7.4 g/dL (12.0-15.5) 7.0 g/dL (12.0-15.5) Hematocrit 22.4 % (36.0-47.0) 21.2 % (36.0-47.0) Mean Corpuscular Volume 93 fL (79-100) 93 fL (79-100) Mean Corpuscular Hemoglobin 31 pg (25-35) 31 pg (25-35) Mean Corpuscular Hemoglobin Concent 33 g/dL (31-37) 33 g/dL (31-37) Red Cell Distribution Width 17.8 % (11.5-14.5) 18.3 % (11.5-14.5) Platelet Count 171 x10^3/uL (140-400) 172 x10^3/uL (140-400) Neutrophils (%) (Auto) 76 % (31-73) 70 % (31-73) Lymphocytes (%) (Auto) 14 % (24-48) 20 % (24-48) Monocytes (%) (Auto) 9 % (0-9) 8 % (0-9) Eosinophils (%) (Auto) 1 % (0-3) 1 % (0-3) Basophils (%) (Auto) 0 % (0-3) 0 % (0-3) Neutrophils # (Auto) 4.7 x10^3/uL (1.8-7.7) 3.8 x10^3/uL (1.8-7.7) Lymphocytes # (Auto) 0.9 x10^3/uL (1.0-4.8) 1.1 x10^3/uL (1.0-4.8) Monocytes # (Auto) 0.5 x10^3/uL (0.0-1.1) 0.4 x10^3/uL (0.0-1.1) Eosinophils # (Auto) 0.0 x10^3/uL (0.0-0.7) 0.1 x10^3/uL (0.0-0.7) Basophils # (Auto) 0.0 x10^3/uL (0.0-0.2) 0.0 x10^3/uL (0.0-0.2) Prothrombin Time 16.7 SEC (11.7-14.0) Prothromb Time International Ratio 1.4 (0.8-1.1) Activated Partial Thromboplast Time 36 SEC (24-38) D-Dimer (Vickie) 2.63 ug/mlFEU (0.00-0.50) Sodium Level 145 mmol/L (136-145) 146 mmol/L (136-145) Potassium Level 5.0 mmol/L (3.5-5.1) 4.4 mmol/L (3.5-5.1) Chloride Level 110 mmol/L (98-107) 111 mmol/L (98-107) Carbon Dioxide Level 23 mmol/L (21-32) 21 mmol/L (21-32) Anion Gap 12 (6-14) 14 (6-14) Blood Urea Nitrogen 81 mg/dL (7-20) 80 mg/dL (7-20) Creatinine 2.5 mg/dL (0.6-1.0) 2.5 mg/dL (0.6-1.0) Estimated GFR (Cockcroft-Gault) 23.9 23.9 BUN/Creatinine Ratio 32 (6-20) 32 (6-20) Glucose Level 105 mg/dL (70-99) 83 mg/dL (70-99) Lactic Acid Level 0.7 mmol/L (0.4-2.0) Calcium Level 9.3 mg/dL (8.5-10.1) 9.1 mg/dL (8.5-10.1) Total Bilirubin 0.4 mg/dL (0.2-1.0) 0.4 mg/dL (0.2-1.0) Aspartate Amino Transf (AST/SGOT) 18 U/L (15-37) 15 U/L (15-37) Alanine Aminotransferase (ALT/SGPT) 12 U/L (14-59) 9 U/L (14-59) Alkaline Phosphatase 82 U/L (46-116) 73 U/L (46-116) Troponin I Quantitative < 0.017 ng/mL (0.000-0.055) ZS-Aku-S-Type Natriuretic Peptide 8464 pg/mL (0-124) Total Protein 8.3 g/dL (6.4-8.2) 7.7 g/dL (6.4-8.2) Albumin 2.5 g/dL (3.4-5.0) 2.2 g/dL (3.4-5.0) Albumin/Globulin Ratio 0.4 (1.0-1.7) 0.4 (1.0-1.7) Urine Collection Type Unknown Urine Color Yellow Urine Clarity Clear Urine pH 5.0 Urine Specific Barry 1.015 Urine Protein 100 mg/dL (NEG-TRACE) Urine Glucose (UA) Negative mg/dL (NEG) Urine Ketones (Stick) Negative mg/dL (NEG) Urine Blood Negative (NEG) Urine Nitrite Negative (NEG) Urine Bilirubin Negative (NEG) Urine Urobilinogen Dipstick 0.2 mg/dL (0.2 mg/dL) Urine Leukocyte Esterase Trace (NEG) Urine RBC 3-5 /HPF (0-2) Urine WBC 1-4 /HPF (0-4) Urine Squamous Epithelial Cells Mod /LPF Urine Bacteria 0 /HPF (0-FEW) Urine Hyaline Casts Moderate /HPF Urine Mucus Slight /LPF O2 Saturation 95 % (92-99) Arterial Blood pH 7.40 (7.35-7.45) Arterial Blood pCO2 at Patient Temp 34 mmHg (35-46) Arterial Blood pO2 at Patient Temp 76 mmHg (65-108) Arterial Blood HCO3 21 mmol/L (21-28) Arterial Blood Base Excess -3 mmol/L (-3-3) Oxyhemoglobin 93.9 % Methemoglobin 0.3 % (0.0-1.9) Carbon Monoxide, Quantitative 0.4 % (0.0-1.9) FiO2 28% 2l Medications Current Medications Albuterol/ Ipratropium (Duoneb) 3 ml 1X ONCE NEB Last administered on 06/28/19at 12:30; Start 06/28/19 at 12:30; Stop 06/28/19 at 12:31; Status DC Piperacillin Sod/ Tazobactam Sod 3.375 gm/Sodium Chloride 50 ml @ 100 mls/hr Q6HRS IV Last administered on 06/29/19at 06:16; Start 06/29/19 at 00:00 Piperacillin Sod/ Tazobactam Sod 3.375 gm/Sodium Chloride 50 ml @ 100 mls/hr 1X ONCE IV Last administered on 06/28/19at 15:21; Start 06/28/19 at 14:30; Stop 06/28/19 at 14:59; Status DC Albuterol Sulfate (Ventolin Neb Soln) 2.5 mg PRN Q6HRS PRN INH SHORTNESS OF BREATH; Start 06/28/19 at 15:00 Amlodipine Besylate (Norvasc) 10 mg DAILY PO Last administered on 06/29/19 08:30; Start 06/28/19 at 15:00 Atorvastatin Calcium (Lipitor) 40 mg HS PO Last administered on 06/28/19at 21:49; Start 06/28/19 at 21:00 Calcium Acetate (Phoslo) 667 mg BIDWMEALS PO Last administered on 06/29/19 08:30; Start 06/28/19 at 17:00 Clonidine HCl (Catapres Tts-2) 1 patch WEEKLY TD ; Start 07/05/19 at 09:00 Hydralazine HCl (Apresoline) 25 mg TID PO Last administered on 06/29/19 08:31; Start 06/28/19 at 15:00 Hydroxychloroquine Sulfate (Plaquenil) 200 mg DAILY PO Last administered on 06/29/19 08:30; Start 06/28/19 at 15:00 Labetalol HCl (Trandate) 300 mg BID PO Last administered on 06/29/19 08:29; Start 06/28/19 at 21:00 Pantoprazole Sodium (Protonix) 40 mg DAILYAC PO Last administered on 06/29/19 08:30; Start 06/29/19 at 07:30 Rivaroxaban (Xarelto) 10 mg DAILY PO ; Start 06/28/19 at 21:30; Stop 06/28/19 at 21:55; Status DC Budesonide (Pulmicort) 0.5 mg RTBID NEB Last administered on 06/29/19at 07:07; Start 06/28/19 at 20:00 Multivitamins (Thera M Plus) 1 tab DAILY PO Last administered on 06/29/19 08:29; Start 06/29/19 at 09:00 Potassium Chloride (Klor-Con) 20 meq DAILYWBKFT PO Last administered on 06/29/19 08:30; Start 06/29/19 at 08:00 Albuterol/ Ipratropium (Duoneb) 3 ml RTQID NEB ; Start 06/28/19 at 16:00; Stop 06/28/19 at 15:16; Status DC Linezolid/Dextrose 300 ml @ 300 mls/hr Q12HR IV Last administered on 06/29/19at 08:32; Start 06/28/19 at 15:30 Sodium Chloride (Normal Saline Flush) 3 ml QSHIFT PRN IV AFTER MEDS AND BLOOD DRAWS; Start 06/28/19 at 15:15 Sodium Chloride 1,000 ml @ 100 mls/hr Q10H IV ; Start 06/28/19 at 15:08; Stop 06/28/19 at 15:39; Status DC Ondansetron HCl (Zofran) 4 mg PRN Q4HRS PRN IV NAUSEA/VOMITING; Start 06/28/19 at 15:15 Acetaminophen (Tylenol) 650 mg PRN Q4HRS PRN PO TEMP OVER 100.4F OR MILD PAIN; Start 06/28/19 at 15:15 Clonidine HCl (Catapres) 0.1 mg PRN Q6HRS PRN PO SBP>160 OR DBP>90; Start 06/28/19 at 15:15 Docusate Sodium (Colace) 100 mg PRN BID PRN PO CONSTIPATION; Start 06/28/19 at 15:15 Albuterol/ Ipratropium (Duoneb) 3 ml Q4HRS NEB Last administered on 06/29/19at 07:07; Start 06/28/19 at 16:00 Guaifenesin (Robitussin) 200 mg PRN Q4HRS PRN PO COUGH; Start 06/28/19 at 15:15 Lorazepam (Ativan) 0.5 mg PRN Q4HRS PRN PO ANXIETY / AGITATION; Start 06/28/19 at 15:15 Furosemide (Lasix) 40 mg 1X ONCE IVP Last administered on 06/28/19at 15:45; Start 06/28/19 at 16:00; Stop 06/28/19 at 16:01; Status DC Enoxaparin Sodium (Lovenox Per Pharmacy Treatment Dosing) 1 each PRN DAILY PRN MC SEE COMMENTS; Start 06/28/19 at 21:15; Status UNV Enoxaparin Sodium (Lovenox Per Pharmacy Treatment Dosing) 1 each PRN DAILY PRN MC SEE COMMENTS; Start 06/28/19 at 22:00 Enoxaparin Sodium (Lovenox 80mg Syringe) 80 mg Q24H SQ Last administered on 06/28/19at 22:43; Start 06/28/19 at 22:00 Enoxaparin Sodium (Lovenox Per Pharmacy Treatment Dosing) 1 each PRN DAILY PRN MC SEE COMMENTS; Start 06/28/19 at 22:00; Status UNV Guaifenesin (Robitussin Dm) 10 ml PRN Q6HRS PRN PO COUGH 1ST CHOICE; Start 06/29/19 at 07:45 Calcium Carbonate/ Glycine (Tums) 500 mg PRN AFTMEALHC PRN PO INDIGESTION; Start 06/29/19 at 07:45 Acetaminophen/ Hydrocodone Bitart (Lortab 5/325) 1 tab PRN Q4HRS PRN PO MODERATE-SEVERE PAIN; Start 06/29/19 at 07:45 Methylprednisolone Sodium Succinate (SOLU-Medrol 40MG VIAL) 40 mg Q8HRS IV Last administered on 06/29/19at 08:29; Start 06/29/19 at 08:30 Furosemide (Lasix) 40 mg DAILY IVP Last administered on 06/29/19at 08:29; Start 06/29/19 at 08:30 Lactobacillus Rhamnosus (Culturelle) 1 cap BID PO ; Start 06/29/19 at 21:00 Active Scripts Active Amlodipine Besylate 10 Mg Tablet 10 Mg PO DAILY 30 Days Labetalol Hcl 200 Mg Tablet 300 Mg PO BID 30 Days Hydralazine Hcl 25 Mg Tablet 25 Mg PO TID 30 Days Clonidine Tts-2 (Clonidine) 1 Each Patch.tdwk 1 Patch TD WEEKLY 30 Days Reported Protonix (Pantoprazole Sodium) 40 Mg Tablet.dr 40 Mg PO DAILYAC Hydroxychloroquine Sulfate 200 Mg Tablet 200 Mg PO DAILY Multivitamins (Multivitamin) 1 Each Tablet 1 Tab PO DAILY Symbicort 160-4.5 Mcg Inhaler (Budesonide/Formoterol Fumarate) 10.2 Gm Hfa.aer.ad 1 Puff IH BID Spiriva (Tiotropium Clancy) 18 Mcg Cap.w.dev 2 Inh IH DAILY Proair Hfa Inhaler (Albuterol Sulfate) 8.5 Gm Hfa.aer.ad 1 Puff INH PRN Q6HRS PRN Xarelto (Rivaroxaban) 10 Mg Tablet 10 Mg PO DAILY Atorvastatin Calcium 40 Mg Tablet 40 Mg PO HS Phoslo (Calcium Acetate) 667 Mg Capsule 1 Cap PO BIDWMEALS K-Tab ER (Potassium Chloride) 20 Meq Tablet.er 20 Meq PO DAILY Vitals/I & O Vital Sign - Last 24 Hours 06/28/19 06/28/19 06/28/19 06/28/19 11:34 12:13 12:43 12:57 Temp 97.5 97.5 Pulse 81 74 76 Resp 20 17 24 B/P (MAP) 172/94 (120) 172/90 (117) 170/81 (110) Pulse Ox 96 95 92 O2 Delivery Room Air Room Air Room Air Room Air 06/28/19 06/28/19 06/28/19 06/28/19 13:13 14:55 15:00 15:45 Temp 97.5 97.5 Pulse 78 78 84 79 Resp 24 22 24 B/P (MAP) 160/94 (116) 168/83 (111) 171/99 (123) 172/94 Pulse Ox 92 96 96 O2 Delivery Room Air Nasal Cannula Nasal Cannula O2 Flow Rate 2.0 2.0 06/28/19 06/28/19 06/28/19 06/28/19 16:00 16:38 19:00 20:00 Temp 97.8 97.8 Pulse 81 Resp 20 B/P (MAP) 174/91 (118) Pulse Ox 96 96 O2 Delivery Nasal Cannula Nasal Cannula Nasal Cannula Nasal Cannula O2 Flow Rate 2.0 2.0 2.0 2.0 06/28/19 06/28/19 06/28/19 06/28/19 20:11 21:49 21:50 23:00 Temp 98.7 98.7 Pulse 86 86 88 Resp 24 B/P (MAP) 174/91 174/91 144/80 (101) Pulse Ox 98 97 O2 Delivery Nasal Cannula Nasal Cannula O2 Flow Rate 2.0 2.0 06/28/19 06/29/19 06/29/19 06/29/19 23:56 03:00 04:21 07:00 Temp 98.2 98.3 98.2 98.3 Pulse 85 82 Resp 20 20 B/P (MAP) 160/79 (106) 172/89 (116) Pulse Ox 94 96 O2 Delivery Nasal Cannula Nasal Cannula Nasal Cannula O2 Flow Rate 2.0 2.0 2.0 2.0 06/29/19 06/29/19 06/29/19 06/29/19 07:08 08:29 08:30 08:31 Pulse 83 B/P (MAP) 173/89 172/89 172/89 Pulse Ox 87 O2 Delivery Nasal Cannula O2 Flow Rate 2.0 06/29/19 10:17 Temp 98.8 98.8 Pulse 79 Resp 20 B/P (MAP) 148/84 (105) Pulse Ox 100 O2 Delivery Nasal Cannula O2 Flow Rate 2.0 Intake and Output 06/28/19 06/28/19 06/29/19 15:00 23:00 07:00 Intake Total 0 ml Output Total 650 ml 200 ml Balance -650 ml -200 ml SHARA SHEEHAN MD Jun 29, 2019 10:27
[2019-06-29] MEDS ORDERED: MAGNESIUM HYDROXIDE 2,400 MG/30 ML ORAL.SUSP. PO PRN (10:30)
[2019-06-29] MEDS ORDERED: BISACODYL 10 MG SUPP.RECT. PR PRN (10:30)
[2019-06-29] MEDS ORDERED: POLYETHYLENE GLYCOL 3350 17 GM PACKET. PO ONE (11:00)
[2019-06-29] MEDS ORDERED: MAGNESIUM HYDROXIDE 2,400 MG/30 ML ORAL.SUSP. PO ONE (11:00)
--- NOTE | 2019-06-29 13:44 | CONS ---
DATE OF CONSULTATION: 06/29/2019 REQUESTING PHYSICIAN: Hospitalist. REASON FOR CONSULTATION: Renal failure. HISTORY OF PRESENT ILLNESS: This is a 59-year-old female with known history of chronic kidney disease stage 4 in the setting of hypertension. She follows with Dr. Keila Bullock of our practice. She is currently admitted with a probable infectious pneumonitis ____ by cough and increasing shortness of breath. PAST MEDICAL HISTORY: Hypertension, chronic kidney disease stage 4, congestive cardiomyopathy, atrial fibrillation, seizures, hyperlipidemia, COPD, pulmonary embolus, uterine fibroids, rheumatoid arthritis, systemic lupus erythematosus, thyroid nodules. ALLERGIES: None. MEDICATIONS: Reviewed per medication list. FAMILY HISTORY: Noncontributory. SOCIAL HISTORY: Resides independently. Former smoker. REVIEW OF SYSTEMS: No headache, sinus problem, nasal drainage, epistaxis, change in vision or hearing. No difficulty swallowing. She has had fever. She had some cough, no sputum production or hemoptysis. No abdominal pain. No nausea, vomiting, diarrhea. No malignancies. PHYSICAL EXAMINATION: GENERAL APPEARANCE: She is somnolent, awakens but is drowsy. HEENT: Bitemporal wasting. Eyes are sunken. NECK: No increased JVD. No thyromegaly, mass or adenopathy. LUNGS: Decreased breath sound at bases. CARDIAC: Without S3 or rub. ABDOMEN: Soft, nontender, no bruits. EXTREMITIES: Trace lower extremity edema bilaterally. NEUROLOGIC: Drowsy, but awakens and follows. PSYCHIATRIC: Drowsy but awakens and follows. LABORATORY DATA: Sodium 146, potassium 4.4, chloride 111, CO2 of 21, BUN 80, creatinine 2.5, GFR is 23.9, albumin 2.2. IMPRESSION: 1. Chronic kidney disease stage 4, secondary hypertensive nephrosclerosis. 2. Probable infectious pneumonitis. 3. Mild prerenal state. RECOMMENDATIONS: 1. Increase oral hydration. 2. Antibiotics and respiratory treatments as per Infectious Disease. We will follow. STEPHANIA NICHOLAS MD DR: LUKAS/isai JOB#: [id number] / [id number]
--- NOTE | 2019-06-29 15:29 | PDOC2 ---
CONSULT Date of Consult Date of Consult DATE: 06/29/19 TIME: 15:29 Reason for Consult Reason for Consult: Atrial fibrillation, heart failure Referring Physician Referring Physician: Dr. Rebolledo Identification/Chief Complaint Chief Complaint Shortness of breath Source Source: Chart review, Patient History of Present Illness Reason for Visit: The patient is a 59-year-old female with a history of chronic kidney disease stage IV, hypertension, diastolic heart failure and asthma who was admitted after episodes of increasing shortness of breath. Patient's initial lab was significant for d-dimer of 2.6. Chest x-ray showed increased air space disease in the right upper lobe. Lab was significant for troponin of less than 0.017, hemoglobin of 7.4, hematocrit of 22.4 and an elevated d-dimer of 2.6. A VQ scan showed intermediate probability of a PE. Previous echo from 12/13/18 showed an ejection fraction of 60-65%, mild aortic stenosis and moderately elevated pulmonary artery pressure 49 mmHg. Patient has been treated and is feeling somewhat better. She denies chest pain. Her heart rate is under reasonable control. Past Medical History Cardiovascular: AFIB, HTN, Hyperlipidemia Pulmonary: COPD, Pulmonary embolus CENTRAL NERVOUS SYSTEM: Other GI: GERD Heme/Onc: Anemia NOS, Other Musculoskeletal: Osteoarthritis Rheumatologic: Rheumatoid arthritis, Other Infectious disease: No pertinent hx Renal/: Chronic renal insuff Endocrine: No pertinent hx, Other (THYROID NODULES) Past Surgical History Past Surgical History: Other, No pertinent history Family History Family History: High Cholestrol, Hypertension Social History Quit ALCOHOL: none Drugs: None Lives: Alone Current Problem List Problem List Problems Medical Problems: (1) Acute exacerbation of CHF (congestive heart failure) Status: Acute (2) Shortness of breath Status: Acute Current Medications Current Medications Current Medications Albuterol/ Ipratropium (Duoneb) 3 ml 1X ONCE NEB Last administered on 06/28/19at 12:30; Start 06/28/19 at 12:30; Stop 06/28/19 at 12:31; Status DC Piperacillin Sod/ Tazobactam Sod 3.375 gm/Sodium Chloride 50 ml @ 100 mls/hr Q6HRS IV Last administered on 06/29/19at 12:30; Start 06/29/19 at 00:00 Piperacillin Sod/ Tazobactam Sod 3.375 gm/Sodium Chloride 50 ml @ 100 mls/hr 1X ONCE IV Last administered on 06/28/19 15:21; Start 06/28/19 at 14:30; Stop 06/28/19 at 14:59; Status DC Albuterol Sulfate (Ventolin Neb Soln) 2.5 mg PRN Q6HRS PRN INH SHORTNESS OF BREATH; Start 06/28/19 at 15:00 Amlodipine Besylate (Norvasc) 10 mg DAILY PO Last administered on 06/29/19 08:30; Start 06/28/19 at 15:00 Atorvastatin Calcium (Lipitor) 40 mg HS PO Last administered on 06/28/19 21:49; Start 06/28/19 at 21:00 Calcium Acetate (Phoslo) 667 mg BIDWMEALS PO Last administered on 06/29/19 08:30; Start 06/28/19 at 17:00 Clonidine HCl (Catapres Tts-2) 1 patch WEEKLY TD ; Start 07/05/19 at 09:00 Hydralazine HCl (Apresoline) 25 mg TID PO Last administered on 06/29/19at 12:30; Start 06/28/19 at 15:00 Hydroxychloroquine Sulfate (Plaquenil) 200 mg DAILY PO Last administered on 06/29/19 08:30; Start 06/28/19 at 15:00 Labetalol HCl (Trandate) 300 mg BID PO Last administered on 06/29/19 08:29; Start 06/28/19 at 21:00 Pantoprazole Sodium (Protonix) 40 mg DAILYAC PO Last administered on 06/29/19 08:30; Start 06/29/19 at 07:30 Rivaroxaban (Xarelto) 10 mg DAILY PO ; Start 06/28/19 at 21:30; Stop 06/28/19 at 21:55; Status DC Budesonide (Pulmicort) 0.5 mg RTBID NEB Last administered on 06/29/19 07:07; Start 06/28/19 at 20:00 Multivitamins (Thera M Plus) 1 tab DAILY PO Last administered on 06/29/19 08:29; Start 06/29/19 at 09:00 Potassium Chloride (Klor-Con) 20 meq DAILYWBKFT PO Last administered on 11/16/19at 08:30; Start 06/29/19 at 08:00 Albuterol/ Ipratropium (Duoneb) 3 ml RTQID NEB ; Start 06/28/19 at 16:00; Stop 06/28/19 at 15:16; Status DC Linezolid/Dextrose 300 ml @ 300 mls/hr Q12HR IV Last administered on 06/29/19at 08:32; Start 06/28/19 at 15:30 Sodium Chloride (Normal Saline Flush) 3 ml QSHIFT PRN IV AFTER MEDS AND BLOOD DRAWS; Start 06/28/19 at 15:15 Sodium Chloride 1,000 ml @ 100 mls/hr Q10H IV ; Start 06/28/19 at 15:08; Stop 06/28/19 at 15:39; Status DC Ondansetron HCl (Zofran) 4 mg PRN Q4HRS PRN IV NAUSEA/VOMITING; Start 06/28/19 at 15:15 Acetaminophen (Tylenol) 650 mg PRN Q4HRS PRN PO TEMP OVER 100.4F OR MILD PAIN; Start 06/28/19 at 15:15 Clonidine HCl (Catapres) 0.1 mg PRN Q6HRS PRN PO SBP>160 OR DBP>90; Start 06/28/19 at 15:15 Docusate Sodium (Colace) 100 mg PRN BID PRN PO CONSTIPATION; Start 06/28/19 at 15:15 Albuterol/ Ipratropium (Duoneb) 3 ml Q4HRS NEB Last administered on 06/29/19at 15:19; Start 06/28/19 at 16:00 Guaifenesin (Robitussin) 200 mg PRN Q4HRS PRN PO COUGH; Start 06/28/19 at 15:15 Lorazepam (Ativan) 0.5 mg PRN Q4HRS PRN PO ANXIETY / AGITATION; Start 06/28/19 at 15:15 Furosemide (Lasix) 40 mg 1X ONCE IVP Last administered on 06/28/19at 15:45; Start 06/28/19 at 16:00; Stop 06/28/19 at 16:01; Status DC Enoxaparin Sodium (Lovenox Per Pharmacy Treatment Dosing) 1 each PRN DAILY PRN MC SEE COMMENTS; Start 06/28/19 at 21:15; Status UNV Enoxaparin Sodium (Lovenox Per Pharmacy Treatment Dosing) 1 each PRN DAILY PRN MC SEE COMMENTS; Start 06/28/19 at 22:00 Enoxaparin Sodium (Lovenox 80mg Syringe) 80 mg Q24H SQ Last administered on 06/28/19at 22:43; Start 06/28/19 at 22:00 Enoxaparin Sodium (Lovenox Per Pharmacy Treatment Dosing) 1 each PRN DAILY PRN MC SEE COMMENTS; Start 06/28/19 at 22:00; Status UNV Guaifenesin (Robitussin Dm) 10 ml PRN Q6HRS PRN PO COUGH 1ST CHOICE; Start 06/29/19 at 07:45 Calcium Carbonate/ Glycine (Tums) 500 mg PRN AFTMEALHC PRN PO INDIGESTION; Start 06/29/19 at 07:45 Acetaminophen/ Hydrocodone Bitart (Lortab 5/325) 1 tab PRN Q4HRS PRN PO MODERATE-SEVERE PAIN; Start 06/29/19 at 07:45 Methylprednisolone Sodium Succinate (SOLU-Medrol 40MG VIAL) 40 mg Q8HRS IV Last administered on 06/29/19at 12:29; Start 06/29/19 at 08:30 Furosemide (Lasix) 40 mg DAILY IVP Last administered on 06/29/19at 08:29; Start 06/29/19 at 08:30 Lactobacillus Rhamnosus (Culturelle) 1 cap BID PO ; Start 06/29/19 at 21:00 Polyethylene Glycol (miraLAX PACKET) 17 gm DAILY PO ; Start 06/30/19 at 09:00 Polyethylene Glycol (miraLAX PACKET) 17 gm 1X ONCE PO Last administered on 06/29/19at 12:30; Start 06/29/19 at 11:00; Stop 06/29/19 at 11:01; Status DC Magnesium Hydroxide (Milk Of Magnesia) 2,400 mg 1X ONCE PO Last administered on 06/29/19at 12:29; Start 06/29/19 at 11:00; Stop 06/29/19 at 11:01; Status DC Magnesium Hydroxide (Milk Of Magnesia) 2,400 mg PRN DAILY PRN PO CONSTIPATION; Start 06/29/19 at 10:30 Bisacodyl (Dulcolax Supp) 10 mg PRN DAILY PRN [place] CONSTIPATION; Start 06/29/19 at 10:30 Active Scripts Active Amlodipine Besylate 10 Mg Tablet 10 Mg PO DAILY 30 Days Labetalol Hcl 200 Mg Tablet 300 Mg PO BID 30 Days Hydralazine Hcl 25 Mg Tablet 25 Mg PO TID 30 Days Clonidine Tts-2 (Clonidine) 1 Each Patch.tdwk 1 Patch TD WEEKLY 30 Days Reported Protonix (Pantoprazole Sodium) 40 Mg Tablet.dr 40 Mg PO DAILYAC Hydroxychloroquine Sulfate 200 Mg Tablet 200 Mg PO DAILY Multivitamins (Multivitamin) 1 Each Tablet 1 Tab PO DAILY Symbicort 160-4.5 Mcg Inhaler (Budesonide/Formoterol Fumarate) 10.2 Gm Hfa.aer.ad 1 Puff IH BID Spiriva (Tiotropium [place]) 18 Mcg Cap.w.dev 2 Inh IH DAILY Proair Hfa Inhaler (Albuterol Sulfate) 8.5 Gm Hfa.aer.ad 1 Puff INH PRN Q6HRS PRN Xarelto (Rivaroxaban) 10 Mg Tablet 10 Mg PO DAILY Atorvastatin Calcium 40 Mg Tablet 40 Mg PO HS Phoslo (Calcium Acetate) 667 Mg Capsule 1 Cap PO BIDWMEALS K-Tab ER (Potassium Chloride) 20 Meq Tablet.er 20 Meq PO DAILY Allergies Allergies: Coded Allergies: No Known Drug Allergies (Unverified , 05/23/14) ROS Respiratory: YES: Shortness of breath, SOB with excertion Physical Exam General: mild distress Lungs: Other (decreased breath sounds) Heart: Other (irregular irregular rhythm) Abdomen: Normal bowel sounds Vitals VITALS Vital Signs Date Time Temp Pulse Resp B/P (MAP) Pulse Ox O2 Delivery O2 Flow Rate FiO2 06/29/19 15:19 98 Nasal Cannula 1.0 06/29/19 14:18 98.1 75 18 121/58 (79) 98.1 Labs Labs Laboratory Tests Test 06/28/19 11:45 06/28/19 13:50 06/28/19 15:13 06/29/19 04:30 White Blood Count 6.2 x10^3/uL (4.0-11.0) 5.4 x10^3/uL (4.0-11.0) Red Blood Count 2.40 x10^6/uL (3.50-5.40) 2.28 x10^6/uL (3.50-5.40) Hemoglobin 7.4 g/dL (12.0-15.5) 7.0 g/dL (12.0-15.5) Hematocrit 22.4 % (36.0-47.0) 21.2 % (36.0-47.0) Mean Corpuscular Volume 93 fL (79-100) 93 fL (79-100) Mean Corpuscular Hemoglobin 31 pg (25-35) 31 pg (25-35) Mean Corpuscular Hemoglobin Concent 33 g/dL (31-37) 33 g/dL (31-37) Red Cell Distribution Width 17.8 % (11.5-14.5) 18.3 % (11.5-14.5) Platelet Count 171 x10^3/uL (140-400) 172 x10^3/uL (140-400) Neutrophils (%) (Auto) 76 % (31-73) 70 % (31-73) Lymphocytes (%) (Auto) 14 % (24-48) 20 % (24-48) Monocytes (%) (Auto) 9 % (0-9) 8 % (0-9) Eosinophils (%) (Auto) 1 % (0-3) 1 % (0-3) Basophils (%) (Auto) 0 % (0-3) 0 % (0-3) Neutrophils # (Auto) 4.7 x10^3/uL (1.8-7.7) 3.8 x10^3/uL (1.8-7.7) Lymphocytes # (Auto) 0.9 x10^3/uL (1.0-4.8) 1.1 x10^3/uL (1.0-4.8) Monocytes # (Auto) 0.5 x10^3/uL (0.0-1.1) 0.4 x10^3/uL (0.0-1.1) Eosinophils # (Auto) 0.0 x10^3/uL (0.0-0.7) 0.1 x10^3/uL (0.0-0.7) Basophils # (Auto) 0.0 x10^3/uL (0.0-0.2) 0.0 x10^3/uL (0.0-0.2) Prothrombin Time 16.7 SEC (11.7-14.0) Prothromb Time International Ratio 1.4 (0.8-1.1) Activated Partial Thromboplast Time 36 SEC (24-38) D-Dimer (Vickie) 2.63 ug/mlFEU (0.00-0.50) Sodium Level 145 mmol/L (136-145) 146 mmol/L (136-145) Potassium Level 5.0 mmol/L (3.5-5.1) 4.4 mmol/L (3.5-5.1) Chloride Level 110 mmol/L (98-107) 111 mmol/L (98-107) Carbon Dioxide Level 23 mmol/L (21-32) 21 mmol/L (21-32) Anion Gap 12 (6-14) 14 (6-14) Blood Urea Nitrogen 81 mg/dL (7-20) 80 mg/dL (7-20) Creatinine 2.5 mg/dL (0.6-1.0) 2.5 mg/dL (0.6-1.0) Estimated GFR (Cockcroft-Gault) 23.9 23.9 BUN/Creatinine Ratio 32 (6-20) 32 (6-20) Glucose Level 105 mg/dL (70-99) 83 mg/dL (70-99) Lactic Acid Level 0.7 mmol/L (0.4-2.0) Calcium Level 9.3 mg/dL (8.5-10.1) 9.1 mg/dL (8.5-10.1) Total Bilirubin 0.4 mg/dL (0.2-1.0) 0.4 mg/dL (0.2-1.0) Aspartate Amino Transf (AST/SGOT) 18 U/L (15-37) 15 U/L (15-37) Alanine Aminotransferase (ALT/SGPT) 12 U/L (14-59) 9 U/L (14-59) Alkaline Phosphatase 82 U/L (46-116) 73 U/L (46-116) Troponin I Quantitative < 0.017 ng/mL (0.000-0.055) RP-Uur-I-Type Natriuretic Peptide 8464 pg/mL (0-124) Total Protein 8.3 g/dL (6.4-8.2) 7.7 g/dL (6.4-8.2) Albumin 2.5 g/dL (3.4-5.0) 2.2 g/dL (3.4-5.0) Albumin/Globulin Ratio 0.4 (1.0-1.7) 0.4 (1.0-1.7) Urine Collection Type Unknown Urine Color Yellow Urine Clarity Clear Urine pH 5.0 Urine Specific [place] 1.015 Urine Protein 100 mg/dL (NEG-TRACE) Urine Glucose (UA) Negative mg/dL (NEG) Urine Ketones (Stick) Negative mg/dL (NEG) Urine Blood Negative (NEG) Urine Nitrite Negative (NEG) Urine Bilirubin Negative (NEG) Urine Urobilinogen Dipstick 0.2 mg/dL (0.2 mg/dL) Urine Leukocyte Esterase Trace (NEG) Urine RBC 3-5 /HPF (0-2) Urine WBC 1-4 /HPF (0-4) Urine Squamous Epithelial Cells Mod /LPF Urine Bacteria 0 /HPF (0-FEW) Urine Hyaline Casts Moderate /HPF Urine Mucus Slight /LPF O2 Saturation 95 % (92-99) Arterial Blood pH 7.40 (7.35-7.45) Arterial Blood pCO2 at Patient Temp 34 mmHg (35-46) Arterial Blood pO2 at Patient Temp 76 mmHg (65-108) Arterial Blood HCO3 21 mmol/L (21-28) Arterial Blood Base Excess -3 mmol/L (-3-3) Oxyhemoglobin 93.9 % Methemoglobin 0.3 % (0.0-1.9) Carbon Monoxide, Quantitative 0.4 % (0.0-1.9) FiO2 28% 2l Iron Level 27 ug/dL (50-170) Total Iron Binding Capacity 144 ug/dL (250-450) Iron Saturation 19 % (15-34) Laboratory Tests Test 06/29/19 04:30 White Blood Count 5.4 x10^3/uL (4.0-11.0) Red Blood Count 2.28 x10^6/uL (3.50-5.40) Hemoglobin 7.0 g/dL (12.0-15.5) Hematocrit 21.2 % (36.0-47.0) Mean Corpuscular Volume 93 fL (79-100) Mean Corpuscular Hemoglobin 31 pg (25-35) Mean Corpuscular Hemoglobin Concent 33 g/dL (31-37) Red Cell Distribution Width 18.3 % (11.5-14.5) Platelet Count 172 x10^3/uL (140-400) Neutrophils (%) (Auto) 70 % (31-73) Lymphocytes (%) (Auto) 20 % (24-48) Monocytes (%) (Auto) 8 % (0-9) Eosinophils (%) (Auto) 1 % (0-3) Basophils (%) (Auto) 0 % (0-3) Neutrophils # (Auto) 3.8 x10^3/uL (1.8-7.7) Lymphocytes # (Auto) 1.1 x10^3/uL (1.0-4.8) Monocytes # (Auto) 0.4 x10^3/uL (0.0-1.1) Eosinophils # (Auto) 0.1 x10^3/uL (0.0-0.7) Basophils # (Auto) 0.0 x10^3/uL (0.0-0.2) Sodium Level 146 mmol/L (136-145) Potassium Level 4.4 mmol/L (3.5-5.1) Chloride Level 111 mmol/L (98-107) Carbon Dioxide Level 21 mmol/L (21-32) Anion Gap 14 (6-14) Blood Urea Nitrogen 80 mg/dL (7-20) Creatinine 2.5 mg/dL (0.6-1.0) Estimated GFR (Cockcroft-Gault) 23.9 BUN/Creatinine Ratio 32 (6-20) Glucose Level 83 mg/dL (70-99) Calcium Level 9.1 mg/dL (8.5-10.1) Iron Level 27 ug/dL (50-170) Total Iron Binding Capacity 144 ug/dL (250-450) Iron Saturation 19 % (15-34) Total Bilirubin 0.4 mg/dL (0.2-1.0) Aspartate Amino Transf (AST/SGOT) 15 U/L (15-37) Alanine Aminotransferase (ALT/SGPT) 9 U/L (14-59) Alkaline Phosphatase 73 U/L (46-116) Total Protein 7.7 g/dL (6.4-8.2) Albumin 2.2 g/dL (3.4-5.0) Albumin/Globulin Ratio 0.4 (1.0-1.7) Images Images And she may yet probability VQ scan. Chest x-ray with increased airspace disease in the right upper lobe Assessment/Plan Assessment/Plan 1. Respiratory distress. Patient has elements of probable diastolic heart failure, possible pneumonia and an intermediate probability VQ scan for PE. She is improving on present treatments. Pulmonary is reviewing the patient regarding her possible pulmonary embolism. Would continue present treatments at this time. 2. Possible diastolic heart failure. Recent echo as above. Patient does have mild aortic stenosis and elevated pulmonary artery pressures. We'll continue present treatments and monitor. 3. Chronic kidney disease. Stage IV. Creatinine of 2.5. Followed by renal. 4. Rate controlled atrial fibrillation. Continue present treatments. 5. Hyperlipidemia. Continue statin. Thank you for allowing us to participate in the care of your patient HERMINIA RUVALCABA MD Jun 29, 2019 15:29
[2019-06-29] MEDS: LACTOBACILLUS RHAMNOSUS GG 1 CAPSULE. PO SCH (21:49)
[2019-06-29] MEDS: ATORVASTATIN CALCIUM 40 MG TABLET. PO SCH (21:49)
[2019-06-30] MEDS: PIPERACILLIN/TAZOBACTAM 3.375 GM in IV NORMAL SALINE 50ML 50 ML IV SCH ×4 (00:25→17:46)
[2019-06-30 03:29] LABS: BASO % 0 % (0-3); EOS % 0 % (0-3); HEMATOCRIT 21.9 % (36.0-47.0); HEMOGLOBIN 7.2 g/dL (12.0-15.5); LYMPH # 0.7 x10^3/uL (1.0-4.8); LYMPH % 15 % (24-48); MEAN CORPUSCULAR HEMOGLOBIN 30 pg (25-35); MEAN CORPUSCULAR HGB CONC 33 g/dL (31-37); MEAN CORPUSCULAR VOLUME 93 fL (79-100); MONO # 0.2 x10^3/uL (0.0-1.1); MONO % 5 % (0-9); NEUT # 3.6 x10^3/uL (1.8-7.7); NEUT % 80 % (31-73); PLATELET COUNT 195 x10^3/uL (140-400); RED BLOOD COUNT 2.36 x10^6/uL (3.50-5.40); RED CELL DISTRIBUTION WIDTH 18.1 % (11.5-14.5); WHITE BLOOD COUNT 4.5 x10^3/uL (4.0-11.0)
[2019-06-30 03:43] LABS: CALCIUM 9.2 mg/dL (8.5-10.1); CREATININE 2.8 mg/dL (0.6-1.0); GFR 20.9; POTASSIUM 4.6 mmol/L (3.5-5.1)
[2019-06-30] MEDS: IPRATRPIUM/ALBUTEROL 0.5/2.5MG 3 ML NEBU. NEB SCH ×6 (03:49→23:23)
[2019-06-30 03:55] VITALS: BP 153/77
[2019-06-30] MEDS: methylPREDNISolone SOD SUCC PF 40 MG/ML VIAL. IV SCH ×2 (06:05→20:59)
[2019-06-30 07:00] VITALS: BP 160/93
[2019-06-30] MEDS: BUDESONIDE 0.5 MG/2 ML NEBU. NEB SCH ×2 (07:09→20:08)
--- NOTE | 2019-06-30 07:55 | PDOC ---
PULMONARY PROGRESS NOTES Subjective sob better, has cough w sputum, no pain Vitals Vital Signs Date Time Temp Pulse Resp B/P (MAP) Pulse Ox O2 Delivery O2 Flow Rate FiO2 06/30/19 07:09 100 Nasal Cannula 2.0 06/30/19 03:55 98.1 90 21 153/77 (102) 98.1 ROS: No Nausea, No Chest Pain General: Alert HEENT: Other (nc at perrl ) Lungs: Crackles Cardiovascular: S1, S2 Abdomen: Soft, Non-tender Neuro Exam: Alert, Oriented Extremities: Other (edema) Skin: Warm Labs Laboratory Tests Test 06/28/19 11:45 06/28/19 13:50 06/28/19 15:13 06/29/19 04:30 White Blood Count 6.2 x10^3/uL (4.0-11.0) 5.4 x10^3/uL (4.0-11.0) Red Blood Count 2.40 x10^6/uL (3.50-5.40) 2.28 x10^6/uL (3.50-5.40) Hemoglobin 7.4 g/dL (12.0-15.5) 7.0 g/dL (12.0-15.5) Hematocrit 22.4 % (36.0-47.0) 21.2 % (36.0-47.0) Mean Corpuscular Volume 93 fL (79-100) 93 fL (79-100) Mean Corpuscular Hemoglobin 31 pg (25-35) 31 pg (25-35) Mean Corpuscular Hemoglobin Concent 33 g/dL (31-37) 33 g/dL (31-37) Red Cell Distribution Width 17.8 % (11.5-14.5) 18.3 % (11.5-14.5) Platelet Count 171 x10^3/uL (140-400) 172 x10^3/uL (140-400) Neutrophils (%) (Auto) 76 % (31-73) 70 % (31-73) Lymphocytes (%) (Auto) 14 % (24-48) 20 % (24-48) Monocytes (%) (Auto) 9 % (0-9) 8 % (0-9) Eosinophils (%) (Auto) 1 % (0-3) 1 % (0-3) Basophils (%) (Auto) 0 % (0-3) 0 % (0-3) Neutrophils # (Auto) 4.7 x10^3/uL (1.8-7.7) 3.8 x10^3/uL (1.8-7.7) Lymphocytes # (Auto) 0.9 x10^3/uL (1.0-4.8) 1.1 x10^3/uL (1.0-4.8) Monocytes # (Auto) 0.5 x10^3/uL (0.0-1.1) 0.4 x10^3/uL (0.0-1.1) Eosinophils # (Auto) 0.0 x10^3/uL (0.0-0.7) 0.1 x10^3/uL (0.0-0.7) Basophils # (Auto) 0.0 x10^3/uL (0.0-0.2) 0.0 x10^3/uL (0.0-0.2) Prothrombin Time 16.7 SEC (11.7-14.0) Prothromb Time International Ratio 1.4 (0.8-1.1) Activated Partial Thromboplast Time 36 SEC (24-38) D-Dimer (Vickie) 2.63 ug/mlFEU (0.00-0.50) Sodium Level 145 mmol/L (136-145) 146 mmol/L (136-145) Potassium Level 5.0 mmol/L (3.5-5.1) 4.4 mmol/L (3.5-5.1) Chloride Level 110 mmol/L (98-107) 111 mmol/L (98-107) Carbon Dioxide Level 23 mmol/L (21-32) 21 mmol/L (21-32) Anion Gap 12 (6-14) 14 (6-14) Blood Urea Nitrogen 81 mg/dL (7-20) 80 mg/dL (7-20) Creatinine 2.5 mg/dL (0.6-1.0) 2.5 mg/dL (0.6-1.0) Estimated GFR (Cockcroft-Gault) 23.9 23.9 BUN/Creatinine Ratio 32 (6-20) 32 (6-20) Glucose Level 105 mg/dL (70-99) 83 mg/dL (70-99) Lactic Acid Level 0.7 mmol/L (0.4-2.0) Calcium Level 9.3 mg/dL (8.5-10.1) 9.1 mg/dL (8.5-10.1) Total Bilirubin 0.4 mg/dL (0.2-1.0) 0.4 mg/dL (0.2-1.0) Aspartate Amino Transf (AST/SGOT) 18 U/L (15-37) 15 U/L (15-37) Alanine Aminotransferase (ALT/SGPT) 12 U/L (14-59) 9 U/L (14-59) Alkaline Phosphatase 82 U/L (46-116) 73 U/L (46-116) Troponin I Quantitative < 0.017 ng/mL (0.000-0.055) MY-Nrx-E-Type Natriuretic Peptide 8464 pg/mL (0-124) Total Protein 8.3 g/dL (6.4-8.2) 7.7 g/dL (6.4-8.2) Albumin 2.5 g/dL (3.4-5.0) 2.2 g/dL (3.4-5.0) Albumin/Globulin Ratio 0.4 (1.0-1.7) 0.4 (1.0-1.7) Urine Collection Type Unknown Urine Color Yellow Urine Clarity Clear Urine pH 5.0 Urine Specific [place] 1.015 Urine Protein 100 mg/dL (NEG-TRACE) Urine Glucose (UA) Negative mg/dL (NEG) Urine Ketones (Stick) Negative mg/dL (NEG) Urine Blood Negative (NEG) Urine Nitrite Negative (NEG) Urine Bilirubin Negative (NEG) Urine Urobilinogen Dipstick 0.2 mg/dL (0.2 mg/dL) Urine Leukocyte Esterase Trace (NEG) Urine RBC 3-5 /HPF (0-2) Urine WBC 1-4 /HPF (0-4) Urine Squamous Epithelial Cells Mod /LPF Urine Bacteria 0 /HPF (0-FEW) Urine Hyaline Casts Moderate /HPF Urine Mucus Slight /LPF O2 Saturation 95 % (92-99) Arterial Blood pH 7.40 (7.35-7.45) Arterial Blood pCO2 at Patient Temp 34 mmHg (35-46) Arterial Blood pO2 at Patient Temp 76 mmHg (65-108) Arterial Blood HCO3 21 mmol/L (21-28) Arterial Blood Base Excess -3 mmol/L (-3-3) Oxyhemoglobin 93.9 % Methemoglobin 0.3 % (0.0-1.9) Carbon Monoxide, Quantitative 0.4 % (0.0-1.9) FiO2 28% 2l Iron Level 27 ug/dL (50-170) Total Iron Binding Capacity 144 ug/dL (250-450) Iron Saturation 19 % (15-34) Test 06/30/19 03:00 White Blood Count 4.5 x10^3/uL (4.0-11.0) Red Blood Count 2.36 x10^6/uL (3.50-5.40) Hemoglobin 7.2 g/dL (12.0-15.5) Hematocrit 21.9 % (36.0-47.0) Mean Corpuscular Volume 93 fL (79-100) Mean Corpuscular Hemoglobin 30 pg (25-35) Mean Corpuscular Hemoglobin Concent 33 g/dL (31-37) Red Cell Distribution Width 18.1 % (11.5-14.5) Platelet Count 195 x10^3/uL (140-400) Neutrophils (%) (Auto) 80 % (31-73) Lymphocytes (%) (Auto) 15 % (24-48) Monocytes (%) (Auto) 5 % (0-9) Eosinophils (%) (Auto) 0 % (0-3) Basophils (%) (Auto) 0 % (0-3) Neutrophils # (Auto) 3.6 x10^3/uL (1.8-7.7) Lymphocytes # (Auto) 0.7 x10^3/uL (1.0-4.8) Monocytes # (Auto) 0.2 x10^3/uL (0.0-1.1) Eosinophils # (Auto) 0.0 x10^3/uL (0.0-0.7) Basophils # (Auto) 0.0 x10^3/uL (0.0-0.2) Sodium Level 147 mmol/L (136-145) Potassium Level 4.6 mmol/L (3.5-5.1) Chloride Level 111 mmol/L (98-107) Carbon Dioxide Level 22 mmol/L (21-32) Anion Gap 14 (6-14) Blood Urea Nitrogen 85 mg/dL (7-20) Creatinine 2.8 mg/dL (0.6-1.0) Estimated GFR (Cockcroft-Gault) 20.9 Glucose Level 124 mg/dL (70-99) Calcium Level 9.2 mg/dL (8.5-10.1) Laboratory Tests Test 06/30/19 03:00 White Blood Count 4.5 x10^3/uL (4.0-11.0) Red Blood Count 2.36 x10^6/uL (3.50-5.40) Hemoglobin 7.2 g/dL (12.0-15.5) Hematocrit 21.9 % (36.0-47.0) Mean Corpuscular Volume 93 fL (79-100) Mean Corpuscular Hemoglobin 30 pg (25-35) Mean Corpuscular Hemoglobin Concent 33 g/dL (31-37) Red Cell Distribution Width 18.1 % (11.5-14.5) Platelet Count 195 x10^3/uL (140-400) Neutrophils (%) (Auto) 80 % (31-73) Lymphocytes (%) (Auto) 15 % (24-48) Monocytes (%) (Auto) 5 % (0-9) Eosinophils (%) (Auto) 0 % (0-3) Basophils (%) (Auto) 0 % (0-3) Neutrophils # (Auto) 3.6 x10^3/uL (1.8-7.7) Lymphocytes # (Auto) 0.7 x10^3/uL (1.0-4.8) Monocytes # (Auto) 0.2 x10^3/uL (0.0-1.1) Eosinophils # (Auto) 0.0 x10^3/uL (0.0-0.7) Basophils # (Auto) 0.0 x10^3/uL (0.0-0.2) Sodium Level 147 mmol/L (136-145) Potassium Level 4.6 mmol/L (3.5-5.1) Chloride Level 111 mmol/L (98-107) Carbon Dioxide Level 22 mmol/L (21-32) Anion Gap 14 (6-14) Blood Urea Nitrogen 85 mg/dL (7-20) Creatinine 2.8 mg/dL (0.6-1.0) Estimated GFR (Cockcroft-Gault) 20.9 Glucose Level 124 mg/dL (70-99) Calcium Level 9.2 mg/dL (8.5-10.1) Medications Active Scripts Medications Dose Route/Sig Max Daily Dose Days Date Category Amlodipine Besylate 10 Mg Tablet 10 Mg PO DAILY 30 06/13/19 Rx Labetalol Hcl 200 Mg Tablet 300 Mg PO BID 30 06/13/19 Rx Hydralazine Hcl 25 Mg Tablet 25 Mg PO TID 30 06/13/19 Rx Clonidine Tts-2 (Clonidine) 1 Each Patch.tdwk 1 Patch TD WEEKLY 30 06/13/19 Rx Protonix (Pantoprazole Sodium) 40 Mg Tablet.dr 40 Mg PO DAILYAC 06/05/19 Reported Hydroxychloroquine Sulfate 200 Mg Tablet 200 Mg PO DAILY 06/05/19 Reported Multivitamins (Multivitamin) 1 Each Tablet 1 Tab PO DAILY 06/05/19 Reported Symbicort 160-4.5 Mcg Inhaler (Budesonide/Formoterol Fumarate) 10.2 Gm Hfa.aer.ad 1 Puff IH BID 12/13/18 Reported Spiriva (Tiotropium [place]) 18 Mcg Cap.w.dev 2 Inh IH DAILY 12/13/18 Reported Proair Hfa Inhaler (Albuterol Sulfate) 8.5 Gm Hfa.aer.ad 1 Puff INH PRN Q6HRS PRN 12/13/18 Reported Xarelto (Rivaroxaban) 10 Mg Tablet 10 Mg PO DAILY 12/13/18 Reported Atorvastatin Calcium 40 Mg Tablet 40 Mg PO HS 12/13/18 Reported Phoslo (Calcium Acetate) 667 Mg Capsule 1 Cap PO BIDWMEALS 06/11/14 Reported K-Tab ER (Potassium Chloride) 20 Meq Tablet.er 20 Meq PO DAILY 05/23/14 Reported Impression . IMPRESSION: 1. Acute respiratory failure, multifactorial in etiology including acute diastolic congestive heart failure, acute exacerbation of chronic obstructive pulmonary disease, ? thromboembolic disease 2. Abnormal chest x-ray. 3. Acute exacerbation of chronic obstructive pulmonary disease. 4. Acute diastolic congestive heart failure. 5. Chronic kidney disease. 6. Ex-smoker. 7. Paroxysmal atrial fibrillation. 8. History of pulmonary embolism. 9. Anemia. 10. Hypertension. Plan . PLAN AND RECOMMENDATIONS: 1. Titrate FiO2 to keep O2 saturation 92%. 2. Bronchodilator. ICS 3. cont abx per id 4. change Solu-Medrol to 40 mg IV every 12 hours. 5. Lasix per nephro, cardiology 6. Lower extremity venous Doppler, neg. 7. she has hx of paf and previous pe, would need lifelong anticoag if there is no contra indications, her v/q is indeterminate, he le doppler is neg, her cr 2.8, not able to do cta 8. follow renal renal cardiology recommendations 9. Continue not smoking. 10. Work up for anemia. Defer to primary doctor. discussed w pt JUAN M NAPOLES MD Jun 30, 2019 07:55
[2019-06-30] MEDS: LABETALOL HCL 100 MG TABLET. PO SCH ×2 (08:45→20:58)
[2019-06-30] MEDS: POLYETHYLENE GLYCOL 3350 17 GM PACKET. PO SCH (08:45)
[2019-06-30] MEDS: POTASSIUM CHLORIDE 20 MEQ TABLET.ER. PO SCH (08:46)
[2019-06-30] MEDS: FUROSEMIDE 40 MG/4 ML VIAL. IVP SCH (08:46)
[2019-06-30] MEDS: CALCIUM ACETATE 667 MG CAPSULE PO SCH ×2 (08:46→17:46)
[2019-06-30] MEDS: LACTOBACILLUS RHAMNOSUS GG 1 CAPSULE. PO SCH ×2 (08:46→20:57)
[2019-06-30] MEDS: HYDROXYCHLOROQUINE 200 MG TABLET PO SCH (08:46)
[2019-06-30] MEDS: MULTIVITAMIN with MINERAL TABLET. PO SCH (08:47)
[2019-06-30] MEDS: PANTOPRAZOLE 40 MG TABLET.DR. PO SCH (08:47)
[2019-06-30] MEDS: hydrALAZINE 25 MG TABLET PO SCH ×3 (08:47→20:59)
[2019-06-30] MEDS: amLODIPine BESYLATE 10 MG TABLET PO SCH (08:47)
--- NOTE | 2019-06-30 09:48 | PDOC ---
Infectious Disease Note Subjective Subjective Feeling much better Off supplemental O2 Walked in halls Denies CP/SOA/F/C/N/V/D ROS ROS per HPI Vital Sign Vital Signs Vital Signs Date Time Temp Pulse Resp B/P (MAP) Pulse Ox O2 Delivery O2 Flow Rate FiO2 06/30/19 08:47 160/93 06/30/19 07:52 Room Air 06/30/19 07:09 100 2.0 06/30/19 07:00 97.5 80 18 97.5 Physical Exam PHYSICAL EXAM GENERAL: Propped up in bed, alert, laughing HEENT: Pupils equally round. Oropharynx pink and moist. NECK: Supple. LUNGS: + wheezes, prolong expiration HEART: S1, S2. Murmur present. ABDOMEN: Soft, nontender with bowel sounds present. EXTREMITIES: Pedal edema bilaterally. No cyanosis. SKIN: Warm to touch. No signs of rash. NEUROLOGIC: ALert, answers questions appropriately PIV Labs Lab Laboratory Tests Test 06/30/19 03:00 White Blood Count 4.5 x10^3/uL (4.0-11.0) Red Blood Count 2.36 x10^6/uL (3.50-5.40) Hemoglobin 7.2 g/dL (12.0-15.5) Hematocrit 21.9 % (36.0-47.0) Mean Corpuscular Volume 93 fL (79-100) Mean Corpuscular Hemoglobin 30 pg (25-35) Mean Corpuscular Hemoglobin Concent 33 g/dL (31-37) Red Cell Distribution Width 18.1 % (11.5-14.5) Platelet Count 195 x10^3/uL (140-400) Neutrophils (%) (Auto) 80 % (31-73) Lymphocytes (%) (Auto) 15 % (24-48) Monocytes (%) (Auto) 5 % (0-9) Eosinophils (%) (Auto) 0 % (0-3) Basophils (%) (Auto) 0 % (0-3) Neutrophils # (Auto) 3.6 x10^3/uL (1.8-7.7) Lymphocytes # (Auto) 0.7 x10^3/uL (1.0-4.8) Monocytes # (Auto) 0.2 x10^3/uL (0.0-1.1) Eosinophils # (Auto) 0.0 x10^3/uL (0.0-0.7) Basophils # (Auto) 0.0 x10^3/uL (0.0-0.2) Sodium Level 147 mmol/L (136-145) Potassium Level 4.6 mmol/L (3.5-5.1) Chloride Level 111 mmol/L (98-107) Carbon Dioxide Level 22 mmol/L (21-32) Anion Gap 14 (6-14) Blood Urea Nitrogen 85 mg/dL (7-20) Creatinine 2.8 mg/dL (0.6-1.0) Estimated GFR (Cockcroft-Gault) 20.9 Glucose Level 124 mg/dL (70-99) Calcium Level 9.2 mg/dL (8.5-10.1) Micro 06/28. URINE CULTURE RES 1 Final No growth 06/28/19 Blood Culture - Preliminary, Resulted NO GROWTH AFTER 1 DAY Objective Assessment Pulmonary infiltrate, pneumonia not ruled out ? PE Acute on chronic CHF CKD stage 3 Anemia A-fib h/o seizures Plan Plan of Care Zyvox and Zosyn Probiotics f/u cultures Steroids Maintain aspiration precautions PT/OT D/w nursing Patient seen and examined. Labs, micro, and chart reviewed. I agree with the above . D/W FISHER [employer]ON[employer]OOKING. FLASH GOMEZ APRN Jun 30, 2019 09:48 KARLO MONAE MD Jun 30, 2019 11:12
--- NOTE | 2019-06-30 10:10 | PDOC ---
PROGRESS NOTES Chief Complaint Chief Complaint 1. Acute respiratory failure, multifactorial in etiology including acute diastolic congestive heart failure, acute exacerbation of chronic obstructive pulmonary disease? thromboembolic disease versus others. 2. Abnormal chest x-ray. 3. Acute exacerbation of chronic obstructive pulmonary disease. 4. Acute diastolic congestive heart failure. 5. Chronic kidney disease. 6. Ex-smoker. 7. Paroxysmal atrial fibrillation. 8. History of pulmonary embolism. 9. Anemia. 10. Hypertension. 11. Acute precip drop hgb - likely sec to CKD 12. NOrmocytic, chronic anemia 13. MEt enceph History of Present Illness History of Present Illness She looks better today - i saw her too walking with PT She came from [facility] and sent bec of ankle swelling - it/s not that marked on exam She answers some qs appropriately, some not SHE wants to go home MUlti specialits were consulted by admitting MD ID, renal, pulmo AbN CXR, hx diastolic HR per records ALso ID bec of "multilobar PNA" NO BM for days.2 today, tells me needed BT in the past CKD creat 3 with low GFR - likely contributing to her anemia PLAn: HH tmr. transfuse if < 7 PPlace monday Bowel regimen today - lavell Nguyen Avoid nephrotoxins Added cards consult for diastolic heart failure - CPM IV abx for "HCAP" Vitals Vitals Vital Signs Date Time Temp Pulse Resp B/P (MAP) Pulse Ox O2 Delivery O2 Flow Rate FiO2 06/30/19 08:47 160/93 06/30/19 07:52 Room Air 06/30/19 07:09 100 2.0 06/30/19 07:00 97.5 80 18 97.5 Physical Exam Physical Exam GENERAL: Propped up in bed, alert, laughing HEENT: Pupils equally round. Oropharynx pink and moist. NECK: Supple. LUNGS: + wheezes, prolong expiration HEART: S1, S2. Murmur present. ABDOMEN: Soft, nontender with bowel sounds present. EXTREMITIES: Pedal edema bilaterally. No cyanosis. SKIN: Warm to touch. No signs of rash. NEUROLOGIC: ALert, answers questions appropriately PIV General: mild distress Heart: Other (irregular irregular rhythm) Lungs: Crackles Abdomen: Normal bowel sounds Extremities: No cyanosis Labs LABS Laboratory Tests Test 06/30/19 03:00 White Blood Count 4.5 x10^3/uL (4.0-11.0) Red Blood Count 2.36 x10^6/uL (3.50-5.40) Hemoglobin 7.2 g/dL (12.0-15.5) Hematocrit 21.9 % (36.0-47.0) Mean Corpuscular Volume 93 fL (79-100) Mean Corpuscular Hemoglobin 30 pg (25-35) Mean Corpuscular Hemoglobin Concent 33 g/dL (31-37) Red Cell Distribution Width 18.1 % (11.5-14.5) Platelet Count 195 x10^3/uL (140-400) Neutrophils (%) (Auto) 80 % (31-73) Lymphocytes (%) (Auto) 15 % (24-48) Monocytes (%) (Auto) 5 % (0-9) Eosinophils (%) (Auto) 0 % (0-3) Basophils (%) (Auto) 0 % (0-3) Neutrophils # (Auto) 3.6 x10^3/uL (1.8-7.7) Lymphocytes # (Auto) 0.7 x10^3/uL (1.0-4.8) Monocytes # (Auto) 0.2 x10^3/uL (0.0-1.1) Eosinophils # (Auto) 0.0 x10^3/uL (0.0-0.7) Basophils # (Auto) 0.0 x10^3/uL (0.0-0.2) Sodium Level 147 mmol/L (136-145) Potassium Level 4.6 mmol/L (3.5-5.1) Chloride Level 111 mmol/L (98-107) Carbon Dioxide Level 22 mmol/L (21-32) Anion Gap 14 (6-14) Blood Urea Nitrogen 85 mg/dL (7-20) Creatinine 2.8 mg/dL (0.6-1.0) Estimated GFR (Cockcroft-Gault) 20.9 Glucose Level 124 mg/dL (70-99) Calcium Level 9.2 mg/dL (8.5-10.1) Review of Systems Review of Systems constipated,all else is neg Assessment and Plan Assessmemt and Plan Problems Medical Problems: (1) Acute exacerbation of CHF (congestive heart failure) Status: Acute (2) Shortness of breath Status: Acute Comment Review of Relevant I have reviewed the following items gregorio (where applicable) has been applied. Labs Laboratory Tests Test 06/28/19 11:45 06/28/19 13:50 06/28/19 15:13 06/29/19 04:30 White Blood Count 6.2 x10^3/uL (4.0-11.0) 5.4 x10^3/uL (4.0-11.0) Red Blood Count 2.40 x10^6/uL (3.50-5.40) 2.28 x10^6/uL (3.50-5.40) Hemoglobin 7.4 g/dL (12.0-15.5) 7.0 g/dL (12.0-15.5) Hematocrit 22.4 % (36.0-47.0) 21.2 % (36.0-47.0) Mean Corpuscular Volume 93 fL (79-100) 93 fL (79-100) Mean Corpuscular Hemoglobin 31 pg (25-35) 31 pg (25-35) Mean Corpuscular Hemoglobin Concent 33 g/dL (31-37) 33 g/dL (31-37) Red Cell Distribution Width 17.8 % (11.5-14.5) 18.3 % (11.5-14.5) Platelet Count 171 x10^3/uL (140-400) 172 x10^3/uL (140-400) Neutrophils (%) (Auto) 76 % (31-73) 70 % (31-73) Lymphocytes (%) (Auto) 14 % (24-48) 20 % (24-48) Monocytes (%) (Auto) 9 % (0-9) 8 % (0-9) Eosinophils (%) (Auto) 1 % (0-3) 1 % (0-3) Basophils (%) (Auto) 0 % (0-3) 0 % (0-3) Neutrophils # (Auto) 4.7 x10^3/uL (1.8-7.7) 3.8 x10^3/uL (1.8-7.7) Lymphocytes # (Auto) 0.9 x10^3/uL (1.0-4.8) 1.1 x10^3/uL (1.0-4.8) Monocytes # (Auto) 0.5 x10^3/uL (0.0-1.1) 0.4 x10^3/uL (0.0-1.1) Eosinophils # (Auto) 0.0 x10^3/uL (0.0-0.7) 0.1 x10^3/uL (0.0-0.7) Basophils # (Auto) 0.0 x10^3/uL (0.0-0.2) 0.0 x10^3/uL (0.0-0.2) Prothrombin Time 16.7 SEC (11.7-14.0) Prothromb Time International Ratio 1.4 (0.8-1.1) Activated Partial Thromboplast Time 36 SEC (24-38) D-Dimer (Vickie) 2.63 ug/mlFEU (0.00-0.50) Sodium Level 145 mmol/L (136-145) 146 mmol/L (136-145) Potassium Level 5.0 mmol/L (3.5-5.1) 4.4 mmol/L (3.5-5.1) Chloride Level 110 mmol/L (98-107) 111 mmol/L (98-107) Carbon Dioxide Level 23 mmol/L (21-32) 21 mmol/L (21-32) Anion Gap 12 (6-14) 14 (6-14) Blood Urea Nitrogen 81 mg/dL (7-20) 80 mg/dL (7-20) Creatinine 2.5 mg/dL (0.6-1.0) 2.5 mg/dL (0.6-1.0) Estimated GFR (Cockcroft-Gault) 23.9 23.9 BUN/Creatinine Ratio 32 (6-20) 32 (6-20) Glucose Level 105 mg/dL (70-99) 83 mg/dL (70-99) Lactic Acid Level 0.7 mmol/L (0.4-2.0) Calcium Level 9.3 mg/dL (8.5-10.1) 9.1 mg/dL (8.5-10.1) Total Bilirubin 0.4 mg/dL (0.2-1.0) 0.4 mg/dL (0.2-1.0) Aspartate Amino Transf (AST/SGOT) 18 U/L (15-37) 15 U/L (15-37) Alanine Aminotransferase (ALT/SGPT) 12 U/L (14-59) 9 U/L (14-59) Alkaline Phosphatase 82 U/L (46-116) 73 U/L (46-116) Troponin I Quantitative < 0.017 ng/mL (0.000-0.055) PS-Edg-D-Type Natriuretic Peptide 8464 pg/mL (0-124) Total Protein 8.3 g/dL (6.4-8.2) 7.7 g/dL (6.4-8.2) Albumin 2.5 g/dL (3.4-5.0) 2.2 g/dL (3.4-5.0) Albumin/Globulin Ratio 0.4 (1.0-1.7) 0.4 (1.0-1.7) Urine Collection Type Unknown Urine Color Yellow Urine Clarity Clear Urine pH 5.0 Urine Specific [place] 1.015 Urine Protein 100 mg/dL (NEG-TRACE) Urine Glucose (UA) Negative mg/dL (NEG) Urine Ketones (Stick) Negative mg/dL (NEG) Urine Blood Negative (NEG) Urine Nitrite Negative (NEG) Urine Bilirubin Negative (NEG) Urine Urobilinogen Dipstick 0.2 mg/dL (0.2 mg/dL) Urine Leukocyte Esterase Trace (NEG) Urine RBC 3-5 /HPF (0-2) Urine WBC 1-4 /HPF (0-4) Urine Squamous Epithelial Cells Mod /LPF Urine Bacteria 0 /HPF (0-FEW) Urine Hyaline Casts Moderate /HPF Urine Mucus Slight /LPF O2 Saturation 95 % (92-99) Arterial Blood pH 7.40 (7.35-7.45) Arterial Blood pCO2 at Patient Temp 34 mmHg (35-46) Arterial Blood pO2 at Patient Temp 76 mmHg (65-108) Arterial Blood HCO3 21 mmol/L (21-28) Arterial Blood Base Excess -3 mmol/L (-3-3) Oxyhemoglobin 93.9 % Methemoglobin 0.3 % (0.0-1.9) Carbon Monoxide, Quantitative 0.4 % (0.0-1.9) FiO2 28% 2l Iron Level 27 ug/dL (50-170) Total Iron Binding Capacity 144 ug/dL (250-450) Iron Saturation 19 % (15-34) Test 06/30/19 03:00 White Blood Count 4.5 x10^3/uL (4.0-11.0) Red Blood Count 2.36 x10^6/uL (3.50-5.40) Hemoglobin 7.2 g/dL (12.0-15.5) Hematocrit 21.9 % (36.0-47.0) Mean Corpuscular Volume 93 fL (79-100) Mean Corpuscular Hemoglobin 30 pg (25-35) Mean Corpuscular Hemoglobin Concent 33 g/dL (31-37) Red Cell Distribution Width 18.1 % (11.5-14.5) Platelet Count 195 x10^3/uL (140-400) Neutrophils (%) (Auto) 80 % (31-73) Lymphocytes (%) (Auto) 15 % (24-48) Monocytes (%) (Auto) 5 % (0-9) Eosinophils (%) (Auto) 0 % (0-3) Basophils (%) (Auto) 0 % (0-3) Neutrophils # (Auto) 3.6 x10^3/uL (1.8-7.7) Lymphocytes # (Auto) 0.7 x10^3/uL (1.0-4.8) Monocytes # (Auto) 0.2 x10^3/uL (0.0-1.1) Eosinophils # (Auto) 0.0 x10^3/uL (0.0-0.7) Basophils # (Auto) 0.0 x10^3/uL (0.0-0.2) Sodium Level 147 mmol/L (136-145) Potassium Level 4.6 mmol/L (3.5-5.1) Chloride Level 111 mmol/L (98-107) Carbon Dioxide Level 22 mmol/L (21-32) Anion Gap 14 (6-14) Blood Urea Nitrogen 85 mg/dL (7-20) Creatinine 2.8 mg/dL (0.6-1.0) Estimated GFR (Cockcroft-Gault) 20.9 Glucose Level 124 mg/dL (70-99) Calcium Level 9.2 mg/dL (8.5-10.1) Laboratory Tests Test 06/30/19 03:00 White Blood Count 4.5 x10^3/uL (4.0-11.0) Red Blood Count 2.36 x10^6/uL (3.50-5.40) Hemoglobin 7.2 g/dL (12.0-15.5) Hematocrit 21.9 % (36.0-47.0) Mean Corpuscular Volume 93 fL (79-100) Mean Corpuscular Hemoglobin 30 pg (25-35) Mean Corpuscular Hemoglobin Concent 33 g/dL (31-37) Red Cell Distribution Width 18.1 % (11.5-14.5) Platelet Count 195 x10^3/uL (140-400) Neutrophils (%) (Auto) 80 % (31-73) Lymphocytes (%) (Auto) 15 % (24-48) Monocytes (%) (Auto) 5 % (0-9) Eosinophils (%) (Auto) 0 % (0-3) Basophils (%) (Auto) 0 % (0-3) Neutrophils # (Auto) 3.6 x10^3/uL (1.8-7.7) Lymphocytes # (Auto) 0.7 x10^3/uL (1.0-4.8) Monocytes # (Auto) 0.2 x10^3/uL (0.0-1.1) Eosinophils # (Auto) 0.0 x10^3/uL (0.0-0.7) Basophils # (Auto) 0.0 x10^3/uL (0.0-0.2) Sodium Level 147 mmol/L (136-145) Potassium Level 4.6 mmol/L (3.5-5.1) Chloride Level 111 mmol/L (98-107) Carbon Dioxide Level 22 mmol/L (21-32) Anion Gap 14 (6-14) Blood Urea Nitrogen 85 mg/dL (7-20) Creatinine 2.8 mg/dL (0.6-1.0) Estimated GFR (Cockcroft-Gault) 20.9 Glucose Level 124 mg/dL (70-99) Calcium Level 9.2 mg/dL (8.5-10.1) Microbiology 06/28/19 Urine Culture - Final, Complete 06/28/19 Urine Culture Result 1 (JANINE) - Final, Complete 06/28/19 Blood Culture - Preliminary, Resulted NO GROWTH AFTER 1 DAY Medications Current Medications Albuterol/ Ipratropium (Duoneb) 3 ml 1X ONCE NEB Last administered on 06/28/19at 12:30; Start 06/28/19 at 12:30; Stop 06/28/19 at 12:31; Status DC Piperacillin Sod/ Tazobactam Sod 3.375 gm/Sodium Chloride 50 ml @ 100 mls/hr Q6HRS IV Last administered on 06/30/19at 06:05; Start 06/29/19 at 00:00 Piperacillin Sod/ Tazobactam Sod 3.375 gm/Sodium Chloride 50 ml @ 100 mls/hr 1X ONCE IV Last administered on 06/28/19at 15:21; Start 06/28/19 at 14:30; Stop 06/28/19 at 14:59; Status DC Albuterol Sulfate (Ventolin Neb Soln) 2.5 mg PRN Q6HRS PRN INH SHORTNESS OF BREATH; Start 06/28/19 at 15:00 Amlodipine Besylate (Norvasc) 10 mg DAILY PO Last administered on 06/30/19at 08:47; Start 06/28/19 at 15:00 Atorvastatin Calcium (Lipitor) 40 mg HS PO Last administered on 06/29/19at 21:49; Start 06/28/19 at 21:00 Calcium Acetate (Phoslo) 667 mg BIDWMEALS PO Last administered on 06/30/19at 08:46; Start 06/28/19 at 17:00 Clonidine HCl (Catapres Tts-2) 1 patch WEEKLY TD ; Start 07/05/19 at 09:00 Hydralazine HCl (Apresoline) 25 mg TID PO Last administered on 06/30/19at 08:47; Start 06/28/19 at 15:00 Hydroxychloroquine Sulfate (Plaquenil) 200 mg DAILY PO Last administered on 1 08/30/18at 08:46; Start 06/28/19 at 15:00 Labetalol HCl (Trandate) 300 mg BID PO Last administered on 06/30/19at 08:45; Start 06/28/19 at 21:00 Pantoprazole Sodium (Protonix) 40 mg DAILYAC PO Last administered on 06/30/19at 08:47; Start 06/29/19 at 07:30 Rivaroxaban (Xarelto) 10 mg DAILY PO ; Start 06/28/19 at 21:30; Stop 06/28/19 at 21:55; Status DC Budesonide (Pulmicort) 0.5 mg RTBID NEB Last administered on 06/30/19at 07:09; Start 06/28/19 at 20:00 Multivitamins (Thera M Plus) 1 tab DAILY PO Last administered on 06/30/19at 08:47; Start 06/29/19 at 09:00 Potassium Chloride (Klor-Con) 20 meq DAILYWBKFT PO Last administered on 06/30/19at 08:46; Start 06/29/19 at 08:00 Albuterol/ Ipratropium (Duoneb) 3 ml RTQID NEB ; Start 06/28/19 at 16:00; Stop 06/28/19 at 15:16; Status DC Linezolid/Dextrose 300 ml @ 300 mls/hr Q12HR IV Last administered on 06/30/19at 08:48; Start 06/28/19 at 15:30 Sodium Chloride (Normal Saline Flush) 3 ml QSHIFT PRN IV AFTER MEDS AND BLOOD DRAWS; Start 06/28/19 at 15:15 Sodium Chloride 1,000 ml @ 100 mls/hr Q10H IV ; Start 06/28/19 at 15:08; Stop 06/28/19 at 15:39; Status DC Ondansetron HCl (Zofran) 4 mg PRN Q4HRS PRN IV NAUSEA/VOMITING; Start 06/28/19 at 15:15 Acetaminophen (Tylenol) 650 mg PRN Q4HRS PRN PO TEMP OVER 100.4F OR MILD PAIN; Start 06/28/19 at 15:15 Clonidine HCl (Catapres) 0.1 mg PRN Q6HRS PRN PO SBP>160 OR DBP>90; Start 06/28/19 at 15:15 Docusate Sodium (Colace) 100 mg PRN BID PRN PO HARD STOOLS; Start 06/28/19 at 15:15 Albuterol/ Ipratropium (Duoneb) 3 ml Q4HRS NEB Last administered on 06/30/19at 07:09; Start 06/28/19 at 16:00 Guaifenesin (Robitussin) 200 mg PRN Q4HRS PRN PO COUGH; Start 06/28/19 at 15:15 Lorazepam (Ativan) 0.5 mg PRN Q4HRS PRN PO ANXIETY / AGITATION; Start 06/28/19 at 15:15 Furosemide (Lasix) 40 mg 1X ONCE IVP Last administered on 06/28/19at 15:45; Start 06/28/19 at 16:00; Stop 06/28/19 at 16:01; Status DC Enoxaparin Sodium (Lovenox Per Pharmacy Treatment Dosing) 1 each PRN DAILY PRN MC SEE COMMENTS; Start 06/28/19 at 21:15; Status UNV Enoxaparin Sodium (Lovenox Per Pharmacy Treatment Dosing) 1 each PRN DAILY PRN MC SEE COMMENTS; Start 06/28/19 at 22:00 Enoxaparin Sodium (Lovenox 80mg Syringe) 80 mg Q24H SQ Last administered on 06/29/19at 21:49; Start 06/28/19 at 22:00 Enoxaparin Sodium (Lovenox Per Pharmacy Treatment Dosing) 1 each PRN DAILY PRN MC SEE COMMENTS; Start 06/28/19 at 22:00; Status UNV Guaifenesin (Robitussin Dm) 10 ml PRN Q6HRS PRN PO COUGH 1ST CHOICE; Start 06/29/19 at 07:45 Calcium Carbonate/ Glycine (Tums) 500 mg PRN AFTMEALHC PRN PO INDIGESTION; Start 06/29/19 at 07:45 Acetaminophen/ Hydrocodone Bitart (Lortab 5/325) 1 tab PRN Q4HRS PRN PO MODERATE-SEVERE PAIN; Start 06/29/19 at 07:45 Methylprednisolone Sodium Succinate (SOLU-Medrol 40MG VIAL) 40 mg Q8HRS IV Last administered on 06/30/19at 06:05; Start 06/29/19 at 08:30; Stop 06/30/19 at 08:33; Status DC Furosemide (Lasix) 40 mg DAILY IVP Last administered on 06/30/19at 08:46; Start 06/29/19 at 08:30 Lactobacillus Rhamnosus (Culturelle) 1 cap BID PO Last administered on 06/30/19at 08:46; Start 06/29/19 at 21:00 Polyethylene Glycol (miraLAX PACKET) 17 gm DAILY PO Last administered on 06/30/19at 08:45; Start 06/30/19 at 09:00 Polyethylene Glycol (miraLAX PACKET) 17 gm 1X ONCE PO Last administered on 06/29/19at 12:30; Start 06/29/19 at 11:00; Stop 06/29/19 at 11:01; Status DC Magnesium Hydroxide (Milk Of Magnesia) 2,400 mg 1X ONCE PO Last administered on 06/29/19at 12:29; Start 06/29/19 at 11:00; Stop 06/29/19 at 11:01; Status DC Magnesium Hydroxide (Milk Of Magnesia) 2,400 mg PRN DAILY PRN PO CONSTIPATION; Start 06/29/19 at 10:30 Bisacodyl (Dulcolax Supp) 10 mg PRN DAILY PRN IN CONSTIPATION; Start 06/29/19 at 10:30 Methylprednisolone Sodium Succinate (SOLU-Medrol 40MG VIAL) 40 mg Q12HR IV ; Start 06/30/19 at 21:00 Active Scripts Active Amlodipine Besylate 10 Mg Tablet 10 Mg PO DAILY 30 Days Labetalol Hcl 200 Mg Tablet 300 Mg PO BID 30 Days Hydralazine Hcl 25 Mg Tablet 25 Mg PO TID 30 Days Clonidine Tts-2 (Clonidine) 1 Each Patch.tdwk 1 Patch TD WEEKLY 30 Days Reported Protonix (Pantoprazole Sodium) 40 Mg Tablet.dr 40 Mg PO DAILYAC Hydroxychloroquine Sulfate 200 Mg Tablet 200 Mg PO DAILY Multivitamins (Multivitamin) 1 Each Tablet 1 Tab PO DAILY Symbicort 160-4.5 Mcg Inhaler (Budesonide/Formoterol Fumarate) 10.2 Gm Hfa.aer.ad 1 Puff IH BID Spiriva (Tiotropium Echo) 18 Mcg Cap.w.dev 2 Inh IH DAILY Proair Hfa Inhaler (Albuterol Sulfate) 8.5 Gm Hfa.aer.ad 1 Puff INH PRN Q6HRS PRN Xarelto (Rivaroxaban) 10 Mg Tablet 10 Mg PO DAILY Atorvastatin Calcium 40 Mg Tablet 40 Mg PO HS Phoslo (Calcium Acetate) 667 Mg Capsule 1 Cap PO BIDWMEALS K-Tab ER (Potassium Chloride) 20 Meq Tablet.er 20 Meq PO DAILY Vitals/I & O Vital Sign - Last 24 Hours 06/29/19 06/29/19 06/29/19 06/29/19 10:17 11:03 12:30 14:11 Temp 98.8 98.5 98.8 98.5 Pulse 79 83 Resp 20 22 B/P (MAP) 148/84 (105) 148/84 150/73 (98) Pulse Ox 100 100 96 O2 Delivery Nasal Cannula Nasal Cannula Nasal Cannula O2 Flow Rate 2.0 2.0 2.0 06/29/19 06/29/19 06/29/19 06/29/19 14:18 15:19 19:00 19:44 Temp 98.1 98.0 98.1 98.0 Pulse 75 82 Resp 18 20 B/P (MAP) 121/58 (79) 159/85 (109) Pulse Ox 99 98 94 97 O2 Delivery Room Air Nasal Cannula Nasal Cannula Nasal Cannula O2 Flow Rate 1.0 2.0 1.0 06/29/19 06/29/19 06/29/19 06/29/19 19:45 20:31 21:50 21:50 Pulse 82 82 B/P (MAP) 159/85 159/85 Pulse Ox 97 O2 Delivery Nasal Cannula Nasal Cannula O2 Flow Rate 1.0 2.0 06/29/19 06/29/19 06/30/19 06/30/19 23:36 23:58 03:49 03:55 Temp 98.8 98.1 98.8 98.1 Pulse 90 90 Resp 21 B/P (MAP) 157/87 (110) 153/77 (102) Pulse Ox 97 99 95 96 O2 Delivery Nasal Cannula Nasal Cannula Nasal Cannula Room Air O2 Flow Rate 1.0 1.0 1.0 06/30/19 06/30/19 06/30/19 06/30/19 07:00 07:09 07:52 08:45 Temp 97.5 97.5 Pulse 80 Resp 18 B/P (MAP) 160/93 (115) 160/93 Pulse Ox 91 100 O2 Delivery Room Air Nasal Cannula Room Air O2 Flow Rate 2.0 06/30/19 06/30/19 08:47 08:47 B/P (MAP) 160/93 160/93 Intake and Output 06/29/19 06/29/19 06/30/19 14:59 22:59 06:59 Intake Total 180 ml 50 ml Output Total 800 ml 250 ml 400 ml Balance -800 ml -70 ml -350 ml SHARA SHEEHAN MD Jun 30, 2019 10:10
[2019-06-30 11:00] VITALS: BP 172/83
[2019-06-30 14:28] VITALS: BP 159/85
--- NOTE | 2019-06-30 16:43 | PDOC ---
PROGRESS NOTES Subjective Subjective Patient seen and examined The patient is feeling better today Objective Objective Vital Signs Date Time Temp Pulse Resp B/P (MAP) Pulse Ox O2 Delivery O2 Flow Rate FiO2 06/30/19 16:33 Room Air 06/30/19 14:28 97.1 83 18 159/85 (109) 95 97.1 06/30/19 07:09 2.0 Intake and Output 06/30/19 07:00 Intake Total 230 ml Output Total 1450 ml Balance -1220 ml Intake Oral 230 ml Output Urine Total 1450 ml Physical Exam Abdomen: Normal bowel sounds Heart: Regular rate General: mild distress Lungs: Other (mildly decreased breath sounds) Assessment Assessment Problems Medical Problems: (1) Acute exacerbation of CHF (congestive heart failure) Status: Acute (2) Shortness of breath Status: Acute 1. Respiratory distress. Patient has elements of probable diastolic heart failure, possible pneumonia and an intermediate probability VQ scan for PE. She is improving on present treatments. Pulmonary is reviewing the patient regarding her possible pulmonary embolism. Would continue present treatments at this time. 2. Possible diastolic heart failure. Recent echo as above. Patient does have mild aortic stenosis and elevated pulmonary artery pressures. We'll continue present treatments and monitor. 3. Chronic kidney disease. Stage IV. Followed by renal. 4. Rate controlled atrial fibrillation. Continue present treatments. 5. Hyperlipidemia. Continue statin. Comment Review of Relevant I have reviewed the following items gregorio (where applicable) has been applied. Labs Laboratory Tests Test 06/29/19 04:30 06/30/19 03:00 White Blood Count 5.4 x10^3/uL (4.0-11.0) 4.5 x10^3/uL (4.0-11.0) Red Blood Count 2.28 x10^6/uL (3.50-5.40) 2.36 x10^6/uL (3.50-5.40) Hemoglobin 7.0 g/dL (12.0-15.5) 7.2 g/dL (12.0-15.5) Hematocrit 21.2 % (36.0-47.0) 21.9 % (36.0-47.0) Mean Corpuscular Volume 93 fL (79-100) 93 fL (79-100) Mean Corpuscular Hemoglobin 31 pg (25-35) 30 pg (25-35) Mean Corpuscular Hemoglobin Concent 33 g/dL (31-37) 33 g/dL (31-37) Red Cell Distribution Width 18.3 % (11.5-14.5) 18.1 % (11.5-14.5) Platelet Count 172 x10^3/uL (140-400) 195 x10^3/uL (140-400) Neutrophils (%) (Auto) 70 % (31-73) 80 % (31-73) Lymphocytes (%) (Auto) 20 % (24-48) 15 % (24-48) Monocytes (%) (Auto) 8 % (0-9) 5 % (0-9) Eosinophils (%) (Auto) 1 % (0-3) 0 % (0-3) Basophils (%) (Auto) 0 % (0-3) 0 % (0-3) Neutrophils # (Auto) 3.8 x10^3/uL (1.8-7.7) 3.6 x10^3/uL (1.8-7.7) Lymphocytes # (Auto) 1.1 x10^3/uL (1.0-4.8) 0.7 x10^3/uL (1.0-4.8) Monocytes # (Auto) 0.4 x10^3/uL (0.0-1.1) 0.2 x10^3/uL (0.0-1.1) Eosinophils # (Auto) 0.1 x10^3/uL (0.0-0.7) 0.0 x10^3/uL (0.0-0.7) Basophils # (Auto) 0.0 x10^3/uL (0.0-0.2) 0.0 x10^3/uL (0.0-0.2) Sodium Level 146 mmol/L (136-145) 147 mmol/L (136-145) Potassium Level 4.4 mmol/L (3.5-5.1) 4.6 mmol/L (3.5-5.1) Chloride Level 111 mmol/L (98-107) 111 mmol/L (98-107) Carbon Dioxide Level 21 mmol/L (21-32) 22 mmol/L (21-32) Anion Gap 14 (6-14) 14 (6-14) Blood Urea Nitrogen 80 mg/dL (7-20) 85 mg/dL (7-20) Creatinine 2.5 mg/dL (0.6-1.0) 2.8 mg/dL (0.6-1.0) Estimated GFR (Cockcroft-Gault) 23.9 20.9 BUN/Creatinine Ratio 32 (6-20) Glucose Level 83 mg/dL (70-99) 124 mg/dL (70-99) Calcium Level 9.1 mg/dL (8.5-10.1) 9.2 mg/dL (8.5-10.1) Iron Level 27 ug/dL (50-170) Total Iron Binding Capacity 144 ug/dL (250-450) Iron Saturation 19 % (15-34) Total Bilirubin 0.4 mg/dL (0.2-1.0) Aspartate Amino Transf (AST/SGOT) 15 U/L (15-37) Alanine Aminotransferase (ALT/SGPT) 9 U/L (14-59) Alkaline Phosphatase 73 U/L (46-116) Total Protein 7.7 g/dL (6.4-8.2) Albumin 2.2 g/dL (3.4-5.0) Albumin/Globulin Ratio 0.4 (1.0-1.7) Laboratory Tests Test 06/30/19 03:00 White Blood Count 4.5 x10^3/uL (4.0-11.0) Red Blood Count 2.36 x10^6/uL (3.50-5.40) Hemoglobin 7.2 g/dL (12.0-15.5) Hematocrit 21.9 % (36.0-47.0) Mean Corpuscular Volume 93 fL (79-100) Mean Corpuscular Hemoglobin 30 pg (25-35) Mean Corpuscular Hemoglobin Concent 33 g/dL (31-37) Red Cell Distribution Width 18.1 % (11.5-14.5) Platelet Count 195 x10^3/uL (140-400) Neutrophils (%) (Auto) 80 % (31-73) Lymphocytes (%) (Auto) 15 % (24-48) Monocytes (%) (Auto) 5 % (0-9) Eosinophils (%) (Auto) 0 % (0-3) Basophils (%) (Auto) 0 % (0-3) Neutrophils # (Auto) 3.6 x10^3/uL (1.8-7.7) Lymphocytes # (Auto) 0.7 x10^3/uL (1.0-4.8) Monocytes # (Auto) 0.2 x10^3/uL (0.0-1.1) Eosinophils # (Auto) 0.0 x10^3/uL (0.0-0.7) Basophils # (Auto) 0.0 x10^3/uL (0.0-0.2) Sodium Level 147 mmol/L (136-145) Potassium Level 4.6 mmol/L (3.5-5.1) Chloride Level 111 mmol/L (98-107) Carbon Dioxide Level 22 mmol/L (21-32) Anion Gap 14 (6-14) Blood Urea Nitrogen 85 mg/dL (7-20) Creatinine 2.8 mg/dL (0.6-1.0) Estimated GFR (Cockcroft-Gault) 20.9 Glucose Level 124 mg/dL (70-99) Calcium Level 9.2 mg/dL (8.5-10.1) Microbiology 06/28/19 Urine Culture - Final, Complete 06/28/19 Urine Culture Result 1 (JANINE) - Final, Complete 06/28/19 Blood Culture - Preliminary, Resulted NO GROWTH AFTER 2 DAYS Medications Current Medications Albuterol/ Ipratropium (Duoneb) 3 ml 1X ONCE NEB Last administered on 06/28/19at 12:30; Start 06/28/19 at 12:30; Stop 06/28/19 at 12:31; Status DC Piperacillin Sod/ Tazobactam Sod 3.375 gm/Sodium Chloride 50 ml @ 100 mls/hr Q6HRS IV Last administered on 06/30/19at 13:19; Start 06/29/19 at 00:00 Piperacillin Sod/ Tazobactam Sod 3.375 gm/Sodium Chloride 50 ml @ 100 mls/hr 1X ONCE IV Last administered on 06/28/19at 15:21; Start 06/28/19 at 14:30; Stop 06/28/19 at 14:59; Status DC Albuterol Sulfate (Ventolin Neb Soln) 2.5 mg PRN Q6HRS PRN INH SHORTNESS OF BREATH; Start 06/28/19 at 15:00 Amlodipine Besylate (Norvasc) 10 mg DAILY PO Last administered on 06/30/19at 08:47; Start 06/28/19 at 15:00 Atorvastatin Calcium (Lipitor) 40 mg HS PO Last administered on 06/29/19at 21:49; Start 06/28/19 at 21:00 Calcium Acetate (Phoslo) 667 mg BIDWMEALS PO Last administered on 06/30/19at 08:46; Start 06/28/19 at 17:00 Clonidine HCl (Catapres Tts-2) 1 patch WEEKLY TD ; Start 07/05/19 at 09:00 Hydralazine HCl (Apresoline) 25 mg TID PO Last administered on 06/30/19at 13:19; Start 06/28/19 at 15:00 Hydroxychloroquine Sulfate (Plaquenil) 200 mg DAILY PO Last administered on 06/30/19at 08:46; Start 06/28/19 at 15:00 Labetalol HCl (Trandate) 300 mg BID PO Last administered on 06/30/19at 08:45; Start 06/28/19 at 21:00 Pantoprazole Sodium (Protonix) 40 mg DAILYAC PO Last administered on 06/30/19at 08:47; Start 06/29/19 at 07:30 Rivaroxaban (Xarelto) 10 mg DAILY PO ; Start 06/28/19 at 21:30; Stop 06/28/19 at 21:55; Status DC Budesonide (Pulmicort) 0.5 mg RTBID NEB Last administered on 06/30/19at 07:09; Start 06/28/19 at 20:00 Multivitamins (Thera M Plus) 1 tab DAILY PO Last administered on 06/30/19at 08:47; Start 06/29/19 at 09:00 Potassium Chloride (Klor-Con) 20 meq DAILYWBKFT PO Last administered on 06/30 08:46; Start 06/29/19 at 08:00 Albuterol/ Ipratropium (Duoneb) 3 ml RTQID NEB ; Start 06/28/19 at 16:00; Stop 06/28/19 at 15:16; Status DC Linezolid/Dextrose 300 ml @ 300 mls/hr Q12HR IV Last administered on 11/17/19at 08:48; Start 06/28/19 at 15:30 Sodium Chloride (Normal Saline Flush) 3 ml QSHIFT PRN IV AFTER MEDS AND BLOOD DRAWS; Start 06/28/19 at 15:15 Sodium Chloride 1,000 ml @ 100 mls/hr Q10H IV ; Start 06/28/19 at 15:08; Stop 06/28/19 at 15:39; Status DC Ondansetron HCl (Zofran) 4 mg PRN Q4HRS PRN IV NAUSEA/VOMITING; Start 06/28/19 at 15:15 Acetaminophen (Tylenol) 650 mg PRN Q4HRS PRN PO TEMP OVER 100.4F OR MILD PAIN; Start 06/28/19 at 15:15 Clonidine HCl (Catapres) 0.1 mg PRN Q6HRS PRN PO SBP>160 OR DBP>90; Start 06/28/19 at 15:15 Docusate Sodium (Colace) 100 mg PRN BID PRN PO HARD STOOLS; Start 06/28/19 at 15:15 Albuterol/ Ipratropium (Duoneb) 3 ml Q4HRS NEB Last administered on 06/30/19at 16:33; Start 06/28/19 at 16:00 Guaifenesin (Robitussin) 200 mg PRN Q4HRS PRN PO COUGH; Start 06/28/19 at 15:15 Lorazepam (Ativan) 0.5 mg PRN Q4HRS PRN PO ANXIETY / AGITATION; Start 06/28/19 at 15:15 Furosemide (Lasix) 40 mg 1X ONCE IVP Last administered on 06/28/19at 15:45; Start 06/28/19 at 16:00; Stop 06/28/19 at 16:01; Status DC Enoxaparin Sodium (Lovenox Per Pharmacy Treatment Dosing) 1 each PRN DAILY PRN MC SEE COMMENTS; Start 06/28/19 at 21:15; Status UNV Enoxaparin Sodium (Lovenox Per Pharmacy Treatment Dosing) 1 each PRN DAILY PRN MC SEE COMMENTS; Start 06/28/19 at 22:00 Enoxaparin Sodium (Lovenox 80mg Syringe) 80 mg Q24H SQ Last administered on 06/29/19at 21:49; Start 06/28/19 at 22:00 Enoxaparin Sodium (Lovenox Per Pharmacy Treatment Dosing) 1 each PRN DAILY PRN MC SEE COMMENTS; Start 06/28/19 at 22:00; Status UNV Guaifenesin (Robitussin Dm) 10 ml PRN Q6HRS PRN PO COUGH 1ST CHOICE; Start 06/29/19 at 07:45 Calcium Carbonate/ Glycine (Tums) 500 mg PRN AFTMEALHC PRN PO INDIGESTION; Start 06/29/19 at 07:45 Acetaminophen/ Hydrocodone Bitart (Lortab 5/325) 1 tab PRN Q4HRS PRN PO MODERATE-SEVERE PAIN; Start 06/29/19 at 07:45 Methylprednisolone Sodium Succinate (SOLU-Medrol 40MG VIAL) 40 mg Q8HRS IV Last administered on 06/30/19at 06:05; Start 06/29/19 at 08:30; Stop 06/30/19 at 08:33; Status DC Furosemide (Lasix) 40 mg DAILY IVP Last administered on 06/30/19at 08:46; Start 06/29/19 at 08:30 Lactobacillus Rhamnosus (Culturelle) 1 cap BID PO Last administered on 06/30/19at 08:46; Start 06/29/19 at 21:00 Polyethylene Glycol (miraLAX PACKET) 17 gm DAILY PO Last administered on 06/30/19at 08:45; Start 06/30/19 at 09:00 Polyethylene Glycol (miraLAX PACKET) 17 gm 1X ONCE PO Last administered on 06/29/19at 12:30; Start 06/29/19 at 11:00; Stop 06/29/19 at 11:01; Status DC Magnesium Hydroxide (Milk Of Magnesia) 2,400 mg 1X ONCE PO Last administered on 06/29/19at 12:29; Start 06/29/19 at 11:00; Stop 06/29/19 at 11:01; Status DC Magnesium Hydroxide (Milk Of Magnesia) 2,400 mg PRN DAILY PRN PO CONSTIPATION Last administered on 06/30/19at 15:08; Start 06/29/19 at 10:30 Bisacodyl (Dulcolax Supp) 10 mg PRN DAILY PRN [place] CONSTIPATION Last administered on 06/30/19at 15:09; Start 06/29/19 at 10:30 Methylprednisolone Sodium Succinate (SOLU-Medrol 40MG VIAL) 40 mg Q12HR IV ; Start 06/30/19 at 21:00 Active Scripts Active Amlodipine Besylate 10 Mg Tablet 10 Mg PO DAILY 30 Days Labetalol Hcl 200 Mg Tablet 300 Mg PO BID 30 Days Hydralazine Hcl 25 Mg Tablet 25 Mg PO TID 30 Days Clonidine Tts-2 (Clonidine) 1 Each Patch.tdwk 1 Patch TD WEEKLY 30 Days Reported Protonix (Pantoprazole Sodium) 40 Mg Tablet.dr 40 Mg PO DAILYAC Hydroxychloroquine Sulfate 200 Mg Tablet 200 Mg PO DAILY Multivitamins (Multivitamin) 1 Each Tablet 1 Tab PO DAILY Symbicort 160-4.5 Mcg Inhaler (Budesonide/Formoterol Fumarate) 10.2 Gm Hfa.aer.ad 1 Puff IH BID Spiriva (Tiotropium [place]) 18 Mcg Cap.w.dev 2 Inh IH DAILY Proair Hfa Inhaler (Albuterol Sulfate) 8.5 Gm Hfa.aer.ad 1 Puff INH PRN Q6HRS PRN Xarelto (Rivaroxaban) 10 Mg Tablet 10 Mg PO DAILY Atorvastatin Calcium 40 Mg Tablet 40 Mg PO HS Phoslo (Calcium Acetate) 667 Mg Capsule 1 Cap PO BIDWMEALS K-Tab ER (Potassium Chloride) 20 Meq Tablet.er 20 Meq PO DAILY Vitals/I & O Vital Sign - Last 24 Hours 06/29/19 06/29/19 06/29/19 06/29/19 19:00 19:44 19:45 20:31 Temp 98.0 98.0 Pulse 82 Resp 20 B/P (MAP) 159/85 (109) Pulse Ox 94 97 97 O2 Delivery Nasal Cannula Nasal Cannula Nasal Cannula Nasal Cannula O2 Flow Rate 2.0 1.0 1.0 2.0 06/29/19 06/29/19 06/29/19 06/29/19 21:50 21:50 23:36 23:58 Temp 98.8 98.8 Pulse 82 82 90 B/P (MAP) 159/85 159/85 157/87 (110) Pulse Ox 97 99 O2 Delivery Nasal Cannula Nasal Cannula O2 Flow Rate 1.0 1.0 06/30/19 06/30/19 06/30/19 06/30/19 03:49 03:55 07:00 07:09 Temp 98.1 97.5 98.1 97.5 Pulse 90 80 Resp 21 18 B/P (MAP) 153/77 (102) 160/93 (115) Pulse Ox 95 96 91 100 O2 Delivery Nasal Cannula Room Air Room Air Nasal Cannula O2 Flow Rate 1.0 2.0 06/30/19 06/30/19 06/30/19 06/30/19 07:52 08:45 08:47 08:47 B/P (MAP) 160/93 160/93 160/93 O2 Delivery Room Air 06/30/19 06/30/19 06/30/19 06/30/19 11:00 11:07 13:19 14:28 Temp 97.1 97.1 97.1 97.1 Pulse 79 83 Resp 18 18 B/P (MAP) 172/83 (112) 172/83 159/85 (109) Pulse Ox 91 98 95 O2 Delivery Room Air Room Air Room Air 06/30/19 16:33 O2 Delivery Room Air Intake and Output0 06/29/19 06/29/19 06/30/19 15:00 23:00 07:00 Intake Total 180 ml 50 ml Output Total 800 ml 250 ml 400 ml Balance -800 ml -70 ml -350 ml HERMINIA RUVALCABA MD Jun 30, 2019 16:43
[2019-06-30 19:05] VITALS: BP 178/97
[2019-06-30] MEDS: ATORVASTATIN CALCIUM 40 MG TABLET. PO SCH (20:57)
[2019-06-30] MEDS: guaiFENesin DM 200MG/20MG 10 ML SYRUP PO PRN (20:57)
[2019-06-30] MEDS: DOCUSATE SODIUM 100 MG CAPSULE. PO PRN (20:58)
[2019-06-30 22:40] VITALS: BP 174/90
[2019-06-30] MEDS: cloNIDine HCL 0.1 MG TABLET PO PRN (22:59)
[2019-07-01] MEDS: PIPERACILLIN/TAZOBACTAM 3.375 GM in IV NORMAL SALINE 50ML 50 ML IV SCH ×3 (00:28→11:11)
[2019-07-01 03:05] VITALS: BP 182/88
[2019-07-01] MEDS: IPRATRPIUM/ALBUTEROL 0.5/2.5MG 3 ML NEBU. NEB SCH ×5 (04:04→19:53)
[2019-07-01 07:00] VITALS: BP 171/89
[2019-07-01] MEDS: BUDESONIDE 0.5 MG/2 ML NEBU. NEB SCH ×2 (07:38→19:53)
[2019-07-01] MEDS: hydrALAZINE 25 MG TABLET PO SCH (08:38)
[2019-07-01] MEDS: LABETALOL HCL 100 MG TABLET. PO SCH ×2 (08:38→21:21)
[2019-07-01] MEDS: amLODIPine BESYLATE 10 MG TABLET PO SCH (08:38)
[2019-07-01] MEDS: LACTOBACILLUS RHAMNOSUS GG 1 CAPSULE. PO SCH ×2 (08:39→21:22)
[2019-07-01] MEDS: HYDROXYCHLOROQUINE 200 MG TABLET PO SCH (08:39)
[2019-07-01] MEDS: PANTOPRAZOLE 40 MG TABLET.DR. PO SCH (08:39)
[2019-07-01] MEDS: POTASSIUM CHLORIDE 20 MEQ TABLET.ER. PO SCH (08:39)
[2019-07-01] MEDS: MULTIVITAMIN with MINERAL TABLET. PO SCH (08:39)
[2019-07-01] MEDS: CALCIUM ACETATE 667 MG CAPSULE PO SCH ×2 (08:40→17:51)
[2019-07-01] MEDS: POLYETHYLENE GLYCOL 3350 17 GM PACKET. PO SCH (08:40)
[2019-07-01] MEDS: FUROSEMIDE 40 MG/4 ML VIAL. IVP SCH ×3 (08:40→21:20)
[2019-07-01] MEDS: methylPREDNISolone SOD SUCC PF 40 MG/ML VIAL. IV SCH (08:41)
--- NOTE | 2019-07-01 09:25 | PDOC ---
PULMONARY PROGRESS NOTES Subjective NOT MORE SOA NO CHEST PAIN Vitals Vital Signs Date Time Temp Pulse Resp B/P (MAP) Pulse Ox O2 Delivery O2 Flow Rate FiO2 07/01/19 08:38 77 171/89 07/01/19 08:00 Room Air 07/01/19 07:38 96 07/01/19 07:00 97.7 18 97.7 06/30/19 21:58 2.0 ROS: No Nausea, No Chest Pain, No Abdominal Pain, No Increase Cough General: Alert HEENT: Other Lungs: Crackles Cardiovascular: S1, S2 Abdomen: Soft, Non-tender Neuro Exam: Alert, Oriented Extremities: Other (edema) Skin: Warm Labs Laboratory Tests Test 06/30/19 03:00 White Blood Count 4.5 x10^3/uL (4.0-11.0) Red Blood Count 2.36 x10^6/uL (3.50-5.40) Hemoglobin 7.2 g/dL (12.0-15.5) Hematocrit 21.9 % (36.0-47.0) Mean Corpuscular Volume 93 fL (79-100) Mean Corpuscular Hemoglobin 30 pg (25-35) Mean Corpuscular Hemoglobin Concent 33 g/dL (31-37) Red Cell Distribution Width 18.1 % (11.5-14.5) Platelet Count 195 x10^3/uL (140-400) Neutrophils (%) (Auto) 80 % (31-73) Lymphocytes (%) (Auto) 15 % (24-48) Monocytes (%) (Auto) 5 % (0-9) Eosinophils (%) (Auto) 0 % (0-3) Basophils (%) (Auto) 0 % (0-3) Neutrophils # (Auto) 3.6 x10^3/uL (1.8-7.7) Lymphocytes # (Auto) 0.7 x10^3/uL (1.0-4.8) Monocytes # (Auto) 0.2 x10^3/uL (0.0-1.1) Eosinophils # (Auto) 0.0 x10^3/uL (0.0-0.7) Basophils # (Auto) 0.0 x10^3/uL (0.0-0.2) Sodium Level 147 mmol/L (136-145) Potassium Level 4.6 mmol/L (3.5-5.1) Chloride Level 111 mmol/L (98-107) Carbon Dioxide Level 22 mmol/L (21-32) Anion Gap 14 (6-14) Blood Urea Nitrogen 85 mg/dL (7-20) Creatinine 2.8 mg/dL (0.6-1.0) Estimated GFR (Cockcroft-Gault) 20.9 Glucose Level 124 mg/dL (70-99) Calcium Level 9.2 mg/dL (8.5-10.1) Medications Active Scripts Medications Dose Route/Sig Max Daily Dose Days Date Category Amlodipine Besylate 10 Mg Tablet 10 Mg PO DAILY 30 06/13/19 Rx Labetalol Hcl 200 Mg Tablet 300 Mg PO BID 30 06/13/19 Rx Hydralazine Hcl 25 Mg Tablet 25 Mg PO TID 06/13/19 Rx Clonidine Tts-2 (Clonidine) 1 Each Patch.tdwk 1 Patch TD WEEKLY 30 06/13/19 Rx Protonix (Pantoprazole Sodium) 40 Mg Tablet.dr 40 Mg PO DAILYAC 06/05/19 Reported Hydroxychloroquine Sulfate 200 Mg Tablet 200 Mg PO DAILY 06/05/19 Reported Multivitamins (Multivitamin) 1 Each Tablet 1 Tab PO DAILY 06/05/19 Reported Symbicort 160-4.5 Mcg Inhaler (Budesonide/Formoterol Fumarate) 10.2 Gm Hfa.aer.ad 1 Puff IH BID 12/13/18 Reported Spiriva (Tiotropium [place]) 18 Mcg Cap.w.dev 2 Inh IH DAILY 12/13/18 Reported Proair Hfa Inhaler (Albuterol Sulfate) 8.5 Gm Hfa.aer.ad 1 Puff INH PRN Q6HRS PRN 12/13/18 Reported Xarelto (Rivaroxaban) 10 Mg Tablet 10 Mg PO DAILY 12/13/18 Reported Atorvastatin Calcium 40 Mg Tablet 40 Mg PO HS 12/13/18 Reported Phoslo (Calcium Acetate) 667 Mg Capsule 1 Cap PO BIDWMEALS 06/11/14 Reported K-Tab ER (Potassium Chloride) 20 Meq Tablet.er 20 Meq PO DAILY 05/23/14 Reported Impression . IMPRESSION: 1. Acute respiratory failure SUSPECT MOSTLY CHF 2. Abnormal chest x-ray. 3. Acute exacerbation of chronic obstructive pulmonary disease. 4. Acute diastolic congestive heart failure. 5. Chronic kidney disease. 6. Ex-smoker. 7. Paroxysmal atrial fibrillation. 8. History of pulmonary embolism. 9. Anemia. 10. Hypertension. 11. LOWE EXT VENOUS DOPPLER NEGATIVE Plan . DOUBT PE TAPER PRED , DEFER ANTIBX USE TO ID OK TO TRANSFER SOON OR DC ON ANTICOUGULATION FOR AF ROSE MARIE BANG MD Jul 01, 2019 09:25
[2019-07-01] MEDS ORDERED: LORA0.5T96 PO (09:59)
[2019-07-01] MEDS ORDERED: FURO-68 PO (09:59)
[2019-07-01] MEDS ORDERED: GUAI100L12 PO (09:59)
[2019-07-01] MEDS ORDERED: HYDR-2761 PO (09:59)
--- NOTE | 2019-07-01 10:00 | SNU/HH DC ---
DISCHARGE ORDERS DISCHARGE INFORMATION: DISCHARGE DATE: Jul 01, 2019 FINAL DIAGNOSIS Problems Medical Problems: (1) Acute exacerbation of CHF (congestive heart failure) Status: Acute (2) Shortness of breath Status: Acute CONDITION ON DISCHARGE: Stable CODE STATUS: Code Status: Full SENIOR CARE: SNF STAY <30 DAYS: Yes HOSPICE: HOSPICE: No HOSPICE EVAL & TREAT: No LTAC: ADMIT TO LTAC: No POST DISCHARGE ORDERS: ACTIVITY ORDERS: Activity as tolerated WEIGHT BEARING STATUS: No restrictions BATHING ORDERS: Shower-keep dressing dry DIET AFTER DISCHARGE: Renal CHECKS AFTER DISCHARGE: CHECKS AFTER DISCHARGE: Check blood press - daily, Check your Temp as needed, Weigh Yourself Daily FOLLOW-UP: PHYSICIAN FOLLOW-UP: BMP 1 week - we placed on lasix 40 PO qd x 5 days for mild chf on CXR TREATMENT/EQUIPMENT ORDERS: Physical Therapy For: Evalulation/Treatment Occupational Therapy For: Evaluation/Treatment DISCHARGE MEDICATIONS: Home Meds Active Scripts Furosemide (LASIX) 40 Mg Tablet, 1 TAB PO DAILY for mild chf on cxr for 5 Days, #5 TAB 0 Refills Prov:SHARA SHEEHAN MD 07/01/19 Guaifenesin (GUAIFENESIN) 100 Mg/5 Ml Liquid, 200 MG PO PRN Q4HRS PRN for COUGH for 7 Days, LIQUID Prov:SHARA SHEEHAN MD 07/01/19 Lorazepam (ATIVAN) 0.5 Mg Tablet, 0.5 MG PO PRN Q4HRS PRN for ANXIETY / AGITATION, #30 TAB Prov:SHARA SHEEHAN MD 07/01/19 Hydrocodone Bit/Acetaminophen (HYDROCODONE-APAP 5-325 ) 1 Tab Tablet, 1 TAB PO PRN Q4HRS PRN for MODERATE-SEVERE PAIN, #30 TAB Prov:SHARA SHEEHAN MD 07/01/19 Amlodipine Besylate (AMLODIPINE BESYLATE) 10 Mg Tablet, 10 MG PO DAILY for HTN for 30 Days, #30 TAB Prov:PAMELA HDZ MD 06/13/19 Labetalol Hcl (LABETALOL HCL) 200 Mg Tablet, 300 MG PO BID for HTN for 30 Days, #90 TAB Prov:PAMELA HDZ MD 06/13/19 Hydralazine Hcl (HYDRALAZINE HCL) 25 Mg Tablet, 25 MG PO TID for HTN for 30 Days, #90 TAB Prov:PAMELA HDZ MD 06/13/19 Clonidine (CLONIDINE TTS-2 ) 1 Each Patch.tdwk, 1 PATCH TD WEEKLY for HTN for 30 Days, #4 PATCH Prov:PAMELA HDZ MD 06/13/19 Reported Medications Pantoprazole Sodium (PROTONIX ) 40 Mg Tablet.dr, 40 MG PO DAILYAC for GERD, TAB 06/05/19 Hydroxychloroquine Sulfate (HYDROXYCHLOROQUINE SULFATE) 200 Mg Tablet, 200 MG PO DAILY for , TAB 06/05/19 Multivitamin (MULTIVITAMINS) 1 Each Tablet, 1 TAB PO DAILY for , #90 TAB 3 Refills 06/05/19 Budesonide/Formoterol Fumarate (SYMBICORT 160-4.5 MCG INHALER) 10.2 Gm Hfa.aer.ad, 1 PUFF IH BID, INHALER 12/13/18 Tiotropium [place] (SPIRIVA) 18 Mcg Cap.w.dev, 2 INH IH DAILY, #1 INH 0 Refills 12/13/18 Albuterol Sulfate (PROAIR HFA INHALER) 8.5 Gm Hfa.aer.ad, 1 PUFF INH PRN Q6HRS PRN for SHORTNESS OF BREATH, INHALER 0 Refills 12/13/18 Rivaroxaban (XARELTO) 10 Mg Tablet, 10 MG PO DAILY, TAB 12/13/18 Atorvastatin Calcium (ATORVASTATIN CALCIUM) 40 Mg Tablet, 40 MG PO HS for FOR CHOLESTEROL, #30 TAB 0 Refills 12/13/18 Calcium Acetate (PHOSLO) 667 Mg Capsule, 1 CAP PO BIDWMEALS, #90 CAP 5 Refills 06/11/14 Potassium Chloride (K-Tab ER) 20 Meq Tablet.er, 20 MEQ PO DAILY, TAB.SR 05/23/14 SHARA SHEEHAN MD Jul 01, 2019 10:00
--- NOTE | 2019-07-01 10:38 | PDOC ---
SUBJECTIVE ROS No complaints, reports good UOP ,reports new LE edema OBJECTIVE Vital Signs Vital Signs Date Time Temp Pulse Resp B/P (MAP) Pulse Ox O2 Delivery O2 Flow Rate FiO2 07/01/19 08:38 77 171/89 07/01/19 08:00 Room Air 07/01/19 07:38 96 07/01/19 07:00 97.7 18 97.7 06/30/19 21:58 2.0 I & 0 Intake and Output 07/01/19 06:59 Intake Total 2750 ml Output Total 900 ml Balance 1850 ml Intake Oral 2200 ml IV Total 550 ml Output Urine Total 900 ml # Voids 2 # Bowel Movements 1 PHYSICAL EXAM Physical Exam General: No acute distress HEENT: Atraumatic, Mucous membr. moist/pink Neck Supple Lungs: Clear to auscultation, Non labored Heart: Regular rate, Normal S1, Normal S2, systolic murmur + Abdomen: Soft, No tenderness Extremities: LE edema 3+ Skin: No rash Neuro: Grossly normal Psych/Mental Status: Mental status NL, Mood NL No reid , No CVA or SP tenderness DIAGNOSIS/ASSESSMENT Assessment & Plan RIYA-n s/p cardiac Cath 06/07 Renal function didn't improve to baseline E-Lytes , acid base, Vol status stable, no emergent indication for seafood team member , supportive care, Monitor, CKD stage 3-Follows with our office, most recent appt with [facility] in Apr Was admitted with Oct to [facility] , RYIA - ALIZA Dced to PP Hyernatremia- Mild, encourage PO water intake Respiratory distress- probable diastolic heart failure, possible pneumonia and an intermediate probability VQ scan for PE. Possible diastolic heart failure- mild aortic stenosis and elevated pulmonary artery pressures LE edema- Significant , not her baseline, currently on steroids Negative venous Doppler of bilateral lower extremity On Lasix IV , get daily accurate standing weight, strict I/O Atrial fibrillation. Chest Pain s/p cardiac Cath 06/07, Normal Membranous Nephropathy Dx in post Bx Proteinuria at Dx was 8 gm, improved most recent Pr/Cr <200 On ARB - may have to hold due to worsening renal function SLE- Use to follow with Rheumatology (Dr Hill) ,was on Imuran Currently only on Hydroxychloroquine Not seen for long time due to the financial constraints HTN- antihypertensives Per Cardiology Renal Doppler - No Doppler evidence of greater than 60% stenosis within the renal arteries. Anemia-Follows with Dr. Baez as OP and was on Aranesp Tsat mildly low, would hold IV Fe until Infection resolves Start SAUMYA, Monitor BP COMMENT/RELEVANT DATA Meds Current Medications Medications (Trade) Dose Ordered Sig/Blaine Start Time Stop Time Status Last Admin Dose Admin Acetaminophen (Tylenol) 650 mg PRN Q4HRS PRN 06/28/19 15:15 Acetaminophen/ Hydrocodone Bitart (Lortab 5/325) 1 tab PRN Q4HRS PRN 06/29/19 07:45 06/30/19 20:58 1 TAB Albuterol Sulfate (Ventolin Neb Soln) 2.5 mg PRN Q6HRS PRN 06/28/19 15:00 Albuterol/ Ipratropium (Duoneb) 3 ml Q4HRS 06/28/19 16:00 07/01/19 07:38 3 ML Amlodipine Besylate (Norvasc) 10 mg DAILY 06/28/19 15:00 07/01/19 08:38 10 MG Atorvastatin Calcium (Lipitor) 40 mg HS 06/28/19 21:00 06/30/19 20:57 40 MG Bisacodyl (Dulcolax Supp) 10 mg PRN DAILY PRN 06/29/19 10:30 06/30/19 15:09 10 MG Budesonide (Pulmicort) 0.5 mg RTBID 06/28/19 20:00 07/01/19 07:38 0.5 MG Calcium Acetate (Phoslo) 667 mg BIDWMEALS 06/28/19 17:00 07/01/19 08:40 667 MG Calcium Carbonate/ Glycine (Tums) 500 mg PRN AFTMEALHC PRN 06/29/19 07:45 Clonidine HCl (Catapres Tts-2) 1 patch WEEKLY 07/05/19 09:00 Clonidine HCl (Catapres) 0.1 mg PRN Q6HRS PRN 06/28/19 15:15 06/30/19 22:59 0.1 MG Docusate Sodium (Colace) 100 mg PRN BID PRN 06/28/19 15:15 06/30/19 20:58 100 MG Enoxaparin Sodium (Lovenox 80mg Syringe) 80 mg Q24H 06/28/19 22:00 06/30/19 21:00 80 MG Enoxaparin Sodium (Lovenox Per Pharmacy Treatment Dosing) 1 each PRN DAILY PRN 06/28/19 22:00 UNV Furosemide (Lasix) 40 mg DAILY 06/29/19 08:30 07/01/19 08:40 40 MG Guaifenesin (Robitussin Dm) 10 ml PRN Q6HRS PRN 06/29/19 07:45 06/30/19 20:57 10 ML Guaifenesin (Robitussin) 200 mg PRN Q4HRS PRN 06/28/19 15:15 Hydralazine HCl (Apresoline) 25 mg TID 06/28/19 15:00 07/01/19 08:38 25 MG Hydroxychloroquine Sulfate (Plaquenil) 200 mg DAILY 06/28/19 15:00 07/01/19 08:39 200 MG Labetalol HCl (Trandate) 300 mg BID 06/28/19 21:00 07/01/19 08:38 300 MG Lactobacillus Rhamnosus (Culturelle) 1 cap BID 06/29/19 21:00 07/01/19 08:39 1 CAP Linezolid/Dextrose 300 ml @ 300 mls/hr Q12HR 06/28/19 15:30 07/01/19 08:41 300 MLS/HR Lorazepam (Ativan) 0.5 mg PRN Q4HRS PRN 06/28/19 15:15 Magnesium Hydroxide (Milk Of Magnesia) 2,400 mg PRN DAILY PRN 06/29/19 10:30 06/30/19 15:08 2,400 MG Methylprednisolone Sodium Succinate (SOLU-Medrol 40MG VIAL) 40 mg Q12HR 06/30/19 21:00 07/01/19 08:41 40 MG Multivitamins (Thera M Plus) 1 tab DAILY 06/29/19 09:00 07/01/19 08:39 1 TAB Ondansetron HCl (Zofran) 4 mg PRN Q4HRS PRN 06/28/19 15:15 Pantoprazole Sodium (Protonix) 40 mg DAILYAC 06/29/19 07:30 07/01/19 08:39 40 MG Piperacillin Sod/ Tazobactam Sod 3.375 gm/Sodium Chloride 50 ml @ 100 mls/hr 1X ONCE 06/28/19 14:30 06/28/19 14:59 DC 06/28/19 15:21 100 MLS/HR Polyethylene Glycol (miraLAX PACKET) 17 gm 1X ONCE 06/29/19 11:00 06/29/19 11:01 DC 06/29/19 12:30 17 GM Potassium Chloride (Klor-Con) 20 meq DAILYWBKFT 06/29/19 08:00 07/01/19 08:39 20 MEQ Rivaroxaban (Xarelto) 10 mg DAILY 06/28/19 21:30 06/28/19 21:55 DC Sodium Chloride 1,000 ml @ 100 mls/hr Q10H 06/28/19 15:08 06/28/19 15:39 DC Sodium Chloride (Normal Saline Flush) 3 ml QSHIFT PRN 06/28/19 15:15 Results All relevant outside records, renal labs, imaging studies, telemetry/EKG's were reviewed. SHEILA CREWS MD Jul 01, 2019 10:38
[2019-07-01 11:00] VITALS: BP 189/95
[2019-07-01] MEDS: cloNIDine HCL 0.1 MG TABLET PO PRN ×2 (11:10→17:55)
[2019-07-01] MEDS: guaiFENesin ORAL 200 MG/10 ML LIQUID. PO PRN ×2 (11:10→21:19)
--- NOTE | 2019-07-01 11:18 | PDOC ---
PROGRESS NOTES Chief Complaint Chief Complaint 1. Acute respiratory failure, multifactorial in etiology including acute diastolic congestive heart failure, acute exacerbation of chronic obstructive pulmonary disease? thromboembolic disease versus others. 2. Abnormal chest x-ray. 3. Acute exacerbation of chronic obstructive pulmonary disease. 4. Acute diastolic congestive heart failure. 5. Chronic kidney disease. 6. Ex-smoker. 7. Paroxysmal atrial fibrillation. 8. History of pulmonary embolism. 9. Anemia. 10. Hypertension. 11. Acute precip drop hgb - likely sec to CKD 12. NOrmocytic, chronic anemia 13. MEt enceph History of Present Illness History of Present Illness I was planning to dc today but SOA and legs puffy GETting lasix 40 PO here, got 3 doses Came from [facility] C[facility]stipated, i gave bowel regimen, unsure if BMd PLAN: Cacel dc LAsix IV now, make it BID LAsix PO 40 at rx on chart for [facility] PT OT while here cont bowel regimen Vitals Vitals Vital Signs Date Time Temp Pulse Resp B/P (MAP) Pulse Ox O2 Delivery O2 Flow Rate FiO2 07/01/19 11:10 78 194/93 07/01/19 08:00 Room Air 07/01/19 07:38 96 07/01/19 07:00 97.7 18 97.7 06/30/19 21:58 2.0 Physical Exam Physical Exam GENERAL: Propped up in bed, alert, laughing HEENT: Pupils equally round. Oropharynx pink and moist. NECK: Supple. LUNGS: + wheezes, prolong expiration HEART: S1, S2. Murmur present. ABDOMEN: Soft, nontender with bowel sounds present. EXTREMITIES: Pedal edema bilaterally. No cyanosis. SKIN: Warm to touch. No signs of rash. NEUROLOGIC: ALert, answers questions appropriately PIV General: mild distress Heart: Regular rate Lungs: Crackles Abdomen: Normal bowel sounds Extremities: No cyanosis Review of Systems Review of Systems soa,, swollen, weak,. constipated, all else 14 pt neg Assessment and Plan Assessmemt and Plan Problems Medical Problems: (1) Acute exacerbation of CHF (congestive heart failure) Status: Acute (2) Shortness of breath Status: Acute Comment Review of Relevant I have reviewed the following items gregorio (where applicable) has been applied. Labs Laboratory Tests Test 06/30/19 03:00 White Blood Count 4.5 x10^3/uL (4.0-11.0) Red Blood Count 2.36 x10^6/uL (3.50-5.40) Hemoglobin 7.2 g/dL (12.0-15.5) Hematocrit 21.9 % (36.0-47.0) Mean Corpuscular Volume 93 fL (79-100) Mean Corpuscular Hemoglobin 30 pg (25-35) Mean Corpuscular Hemoglobin Concent 33 g/dL (31-37) Red Cell Distribution Width 18.1 % (11.5-14.5) Platelet Count 195 x10^3/uL (140-400) Neutrophils (%) (Auto) 80 % (31-73) Lymphocytes (%) (Auto) 15 % (24-48) Monocytes (%) (Auto) 5 % (0-9) Eosinophils (%) (Auto) 0 % (0-3) Basophils (%) (Auto) 0 % (0-3) Neutrophils # (Auto) 3.6 x10^3/uL (1.8-7.7) Lymphocytes # (Auto) 0.7 x10^3/uL (1.0-4.8) Monocytes # (Auto) 0.2 x10^3/uL (0.0-1.1) Eosinophils # (Auto) 0.0 x10^3/uL (0.0-0.7) Basophils # (Auto) 0.0 x10^3/uL (0.0-0.2) Sodium Level 147 mmol/L (136-145) Potassium Level 4.6 mmol/L (3.5-5.1) Chloride Level 111 mmol/L (98-107) Carbon Dioxide Level 22 mmol/L (21-32) Anion Gap 14 (6-14) Blood Urea Nitrogen 85 mg/dL (7-20) Creatinine 2.8 mg/dL (0.6-1.0) Estimated GFR (Cockcroft-Gault) 20.9 Glucose Level 124 mg/dL (70-99) Calcium Level 9.2 mg/dL (8.5-10.1) Microbiology 06/28/19 Urine Culture - Final, Complete 06/28/19 Urine Culture Result 1 (JANINE) - Final, Complete 06/28/19 Blood Culture - Preliminary, Resulted NO GROWTH AFTER 2 DAYS Medications Current Medications Albuterol/ Ipratropium (Duoneb) 3 ml 1X ONCE NEB Last administered on 06/28/19at 12:30; Start 06/28/19 at 12:30; Stop 06/28/19 at 12:31; Status DC Piperacillin Sod/ Tazobactam Sod 3.375 gm/Sodium Chloride 50 ml @ 100 mls/hr Q6HRS IV Last administered on 07/01/19at 11:11; Start 06/29/19 at 00:00 Piperacillin Sod/ Tazobactam Sod 3.375 gm/Sodium Chloride 50 ml @ 100 mls/hr 1X ONCE IV Last administered on 06/28/19at 15:21; Start 06/28/19 at 14:30; Stop 06/28/19 at 14:59; Status DC Albuterol Sulfate (Ventolin Neb Soln) 2.5 mg PRN Q6HRS PRN INH SHORTNESS OF BREATH; Start 06/28/19 at 15:00 Amlodipine Besylate (Norvasc) 10 mg DAILY PO Last administered on 07/01/19at 08:38; Start 06/28/19 at 15:00 Atorvastatin Calcium (Lipitor) 40 mg HS PO Last administered on 06/30/19at 20:57; Start 06/28/19 at 21:00 Calcium Acetate (Phoslo) 667 mg BIDWMEALS PO Last administered on 07/01/19at 08:40; Start 06/28/19 at 17:00 Clonidine HCl (Catapres Tts-2) 1 patch WEEKLY TD ; Start 07/05/19 at 09:00 Hydralazine HCl (Apresoline) 25 mg TID PO Last administered on 07/01/19at 08:38; Start 06/28/19 at 15:00 Hydroxychloroquine Sulfate (Plaquenil) 200 mg DAILY PO Last administered on 07/01/19at 08:39; Start 06/28/19 at 15:00 Labetalol HCl (Trandate) 300 mg BID PO Last administered on 07/01/19at 08:38; Start 06/28/19 at 21:00 Pantoprazole Sodium (Protonix) 40 mg DAILYAC PO Last administered on 07/01/19at 08:39; Start 06/29/19 at 07:30 Rivaroxaban (Xarelto) 10 mg DAILY PO ; Start 06/28/19 at 21:30; Stop 06/28/19 at 21:55; Status DC Budesonide (Pulmicort) 0.5 mg RTBID NEB Last administered on 07/01/19at 07:38; Start 06/28/19 at 20:00 Multivitamins (Thera M Plus) 1 tab DAILY PO Last administered on 07/01/19 08:39; Start 06/29/19 at 09:00 Potassium Chloride (Klor-Con) 20 meq DAILYWBKFT PO Last administered on 07/01/19at 08:39; Start 06/29/19 at 08:00 Albuterol/ Ipratropium (Duoneb) 3 ml RTQID NEB ; Start 06/28/19 at 16:00; Stop 06/28/19 at 15:16; Status DC Linezolid/Dextrose 300 ml @ 300 mls/hr Q12HR IV Last administered on 07/01/19at 08:41; Start 06/28/19 at 15:30 Sodium Chloride (Normal Saline Flush) 3 ml QSHIFT PRN IV AFTER MEDS AND BLOOD DRAWS; Start 06/28/19 at 15:15 Sodium Chloride 1,000 ml @ 100 mls/hr Q10H IV ; Start 06/28/19 at 15:08; Stop 06/28/19 at 15:39; Status DC Ondansetron HCl (Zofran) 4 mg PRN Q4HRS PRN IV NAUSEA/VOMITING; Start 06/28/19 at 15:15 Acetaminophen (Tylenol) 650 mg PRN Q4HRS PRN PO TEMP OVER 100.4F OR MILD PAIN; Start 06/28/19 at 15:15 Clonidine HCl (Catapres) 0.1 mg PRN Q6HRS PRN PO SBP>160 OR DBP>90 Last administered on 07/01/19at 11:10; Start 06/28/19 at 15:15 Docusate Sodium (Colace) 100 mg PRN BID PRN PO HARD STOOLS Last administered on 06/30/19at 20:58; Start 06/28/19 at 15:15 Albuterol/ Ipratropium (Duoneb) 3 ml Q4HRS NEB Last administered on 07/01/19at 07:38; Start 06/28/19 at 16:00 Guaifenesin (Robitussin) 200 mg PRN Q4HRS PRN PO COUGH Last administered on 07/01/19at 11:10; Start 06/28/19 at 15:15 Lorazepam (Ativan) 0.5 mg PRN Q4HRS PRN PO ANXIETY / AGITATION; Start 06/28/19 at 15:15 Furosemide (Lasix) 40 mg 1X ONCE IVP Last administered on 06/28/19at 15:45; Start 06/28/19 at 16:00; Stop 06/28/19 at 16:01; Status DC Enoxaparin Sodium (Lovenox Per Pharmacy Treatment Dosing) 1 each PRN DAILY PRN MC SEE COMMENTS; Start 06/28/19 at 21:15; Status UNV Enoxaparin Sodium (Lovenox Per Pharmacy Treatment Dosing) 1 each PRN DAILY PRN MC SEE COMMENTS; Start 06/28/19 at 22:00 Enoxaparin Sodium (Lovenox 80mg Syringe) 80 mg Q24H SQ Last administered on 06/30/19at 21:00; Start 06/28/19 at 22:00 Enoxaparin Sodium (Lovenox Per Pharmacy Treatment Dosing) 1 each PRN DAILY PRN MC SEE COMMENTS; Start 06/28/19 at 22:00; Status UNV Guaifenesin (Robitussin Dm) 10 ml PRN Q6HRS PRN PO COUGH 1ST CHOICE Last administered on 06/30/19at 20:57; Start 06/29/19 at 07:45 Calcium Carbonate/ Glycine (Tums) 500 mg PRN AFTMEALHC PRN PO INDIGESTION; Start 06/29/19 at 07:45 Acetaminophen/ Hydrocodone Bitart (Lortab 5/325) 1 tab PRN Q4HRS PRN PO MODERA TE-SEVERE PAIN Last administered on 06/30/19at 20:58; Start 06/29/19 at 07:45 Methylprednisolone Sodium Succinate (SOLU-Medrol 40MG VIAL) 40 mg Q8HRS IV Last administered on 06/30/19at 06:05; Start 06/29/19 at 08:30; Stop 06/30/19 at 08:33; Status DC Furosemide (Lasix) 40 mg DAILY IVP Last administered on 07/01/19at 08:40; Start 06/29/19 at 08:30; Stop 07/01/19 at 11:01; Status DC Lactobacillus Rhamnosus (Culturelle) 1 cap BID PO Last administered on 07/01/19at 08:39; Start 06/29/19 at 21:00 Polyethylene Glycol (miraLAX PACKET) 17 gm DAILY PO Last administered on 07/01/19at 08:40; Start 06/30/19 at 09:00 Polyethylene Glycol (miraLAX PACKET) 17 gm 1X ONCE PO Last administered on 06/29/19at 12:30; Start 06/29/19 at 11:00; Stop 06/29/19 at 11:01; Status DC Magnesium Hydroxide (Milk Of Magnesia) 2,400 mg 1X ONCE PO Last administered on 06/29/19at 12:29; Start 06/29/19 at 11:00; Stop 06/29/19 at 11:01; Status DC Magnesium Hydroxide (Milk Of Magnesia) 2,400 mg PRN DAILY PRN PO CONSTIPATION L ast administered on 06/30/19at 15:08; Start 06/29/19 at 10:30 Bisacodyl (Dulcolax Supp) [address] CONSTIPATION Last administered on 06/30/19at 15:09; Start 06/29/19 at 10:30 Methylprednisolone Sodium Succinate (SOLU-Medrol 40MG VIAL) 40 mg Q12HR IV Last administered on 07/01/19at 08:41; Start 06/30/19 at 21:00 Darbepoetin Emmanuel (ARANESP for NON-DIALYSIS PTS) 60 mcg 1X ONCE SQ Last administered on 07/01/19at 11:11; Start 07/01/19 at 12:00; Stop 07/01/19 at 12:01 Furosemide (Lasix) 40 mg BID IVP ; Start 07/01/19 at 11:00 Active Scripts Active Lasix (Furosemide) 40 Mg Tablet 1 Tab PO DAILY 5 Days Guaifenesin 100 Mg/5 Ml Liquid 200 Mg PO PRN Q4HRS PRN 7 Days Ativan (Lorazepam) 0.5 Mg Tablet 0.5 Mg PO PRN Q4HRS PRN Hydrocodone-Apap 5-325 (Hydrocodone Bit/Acetaminophen) 1 Tab Tablet 1 Tab PO PRN Q4HRS PRN Amlodipine Besylate 10 Mg Tablet 10 Mg PO DAILY 30 Days Labetalol Hcl 200 Mg Tablet 300 Mg PO BID 30 Days Hydralazine Hcl 25 Mg Tablet 25 Mg PO TID 30 Days Clonidine Tts-2 (Clonidine) 1 Each Patch.tdwk 1 Patch TD WEEKLY 30 Days Reported Protonix (Pantoprazole Sodium) 40 Mg Tablet.dr 40 Mg PO DAILYAC Hydroxychloroquine Sulfate 200 Mg Tablet 200 Mg PO DAILY Multivitamins (Multivitamin) 1 Each Tablet 1 Tab PO DAILY Symbicort 160-4.5 Mcg Inhaler (Budesonide/Formoterol Fumarate) 10.2 Gm Hfa.aer.ad 1 Puff IH BID Spiriva (Tiotropium Bishop) 18 Mcg Cap.w.dev 2 Inh IH DAILY Proair Hfa Inhaler (Albuterol Sulfate) 8.5 Gm Hfa.aer.ad 1 Puff INH PRN Q6HRS PRN Xarelto (Rivaroxaban) 10 Mg Tablet 10 Mg PO DAILY Atorvastatin Calcium 40 Mg Tablet 40 Mg PO HS Phoslo (Calcium Acetate) 667 Mg Capsule 1 Cap PO BIDWMEALS K-Tab ER (Potassium Chloride) 20 Meq Tablet.er 20 Meq PO DAILY Vitals/I & O Vital Sign - Last 24 Hours 06/30/19 06/30/19 06/30/19 06/30/19 13:19 14:28 16:33 19:05 Temp 97.1 97.7 97.1 97.7 Pulse 83 81 Resp 18 20 B/P (MAP) 172/83 159/85 (109) 178/97 (124) Pulse Ox 95 97 O2 Delivery Room Air Room Air Room Air 06/30/19 06/30/19 06/30/19 06/30/19 20:00 20:07 20:58 20:59 Pulse 81 81 B/P (MAP) 178/97 178/97 Pulse Ox 95 O2 Delivery Room Air Room Air 06/30/19 06/30/19 06/30/19 06/30/19 21:58 22:40 22:59 23:23 Temp 97.8 97.8 Pulse 81 78 Resp 18 B/P (MAP) 174/90 (118) 174/90 Pulse Ox 95 96 95 O2 Delivery Room Air Room Air Room Air O2 Flow Rate 2.0 07/01/19 07/01/19 07/01/19 07/01/19 03:05 04:03 07:00 07:38 Temp 98.0 97.7 98.0 97.7 Pulse 78 77 Resp 18 18 B/P (MAP) 182/88 (119) 171/89 (116) Pulse Ox 94 94 96 O2 Delivery Room Air Room Air Room Air Room Air 07/01/19 07/01/19 07/01/19 07/01/19 08:00 08:38 08:38 08:38 Pulse 77 77 77 B/P (MAP) 171/89 171/89 171/89 O2 Delivery Room Air 07/01/19 11:10 Pulse 78 B/P (MAP) 194/93 Intake and Output 06/30/19 06/30/19 07/01/19 14:59 22:59 06:59 Intake Total 1600 ml 300 ml 850 ml Output Total 300 ml 300 ml 300 ml Balance 1300 ml 0 ml 550 ml SHARA SHEEHAN MD Jul 01, 2019 11:18
[2019-07-01] MEDS ORDERED: ALBUTEROL SULFATE 2.5 MG/3 ML NEBU. NEB ONE (11:30)
[2019-07-01] MEDS ORDERED: DARBEPOETIN ALFA 60 MCG/0.3 ML DISP.SYRIN. SQ ONE (12:00)
--- NOTE | 2019-07-01 12:15 | NUR ---
SS following for discharge planning. SS reviewed pt chart and received notification that pt was from [facility], ; fax [phone]. SS contacted 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 PT/OT recommended fdc unit. SS phoned and faxed referral to [facility]. SS will continue to follow for discharge planning.
[2019-07-01] MEDS ORDERED: ANTI-COAG MONITOR BY PHARMACY. MC PRN (14:00)
--- NOTE | 2019-07-01 14:41 | PDOC ---
Infectious Disease Note Subjective Subjective Feeling much better Off supplemental O2 Denies CP/SOA/F/C/N/V/D ROS ROS o/w neg Vital Sign Vital Signs Vital Signs Date Time Temp Pulse Resp B/P (MAP) Pulse Ox O2 Delivery O2 Flow Rate FiO2 07/01/19 11:37 96 Room Air 07/01/19 11:10 78 194/93 07/01/19 11:00 97.6 18 97.6 06/30/19 21:58 2.0 Physical Exam PHYSICAL EXAM GENERAL: Propped up in bed, alert HEENT: Pupils equally round. Oropharynx pink and moist. NECK: Supple. LUNGS: CTA HEART: S1, S2. Murmur present. ABDOMEN: Soft, nontender with bowel sounds present. EXTREMITIES: Pedal edema bilaterally. No cyanosis. SKIN: Warm to touch. No signs of rash. NEUROLOGIC: Alert, answers questions appropriately PIV Labs Micro Microbiology 06/28/19 Urine Culture - Final, Complete 06/28/19 Urine Culture Result 1 (JANINE) - Final, Complete 06/28/19 Blood Culture - Preliminary, Resulted NO GROWTH AFTER 3 DAYS Objective Assessment Pulmonary infiltrate, pneumonia not ruled out ? PE Acute on chronic CHF CKD stage 3 Anemia A-fib h/o seizures Plan Plan of Care D/c Zyvox and Zosyn Probiotics Steroids Maintain aspiration precautions PT/OT D/w nursing DENVER MEADOWS MD Jul 01, 2019 14:41
[2019-07-01 15:00] VITALS: BP 199/96
--- NOTE | 2019-07-01 15:13 | PDOC ---
DAJUANXIANG KOREY 07/01/19 1512: CARDIO Progress Notes Date and Time Date of Service 07/01/19 Time of Evaluation 1420 Subjective Subjective: No Chest Pain, No Palpitations, No Dizziness, Other (SOA comes and goes ) Vitals Vitals Vital Signs Date Time Temp Pulse Resp B/P (MAP) Pulse Ox O2 Delivery O2 Flow Rate FiO2 07/01/19 11:37 96 Room Air 07/01/19 11:10 78 194/93 07/01/19 11:00 97.6 18 97.6 06/30/19 21:58 2.0 Weight Weight [ ] Input and Output Intake and Output Intake and Output 07/01/19 06:59 Intake Total 2750 ml Output Total 900 ml Balance 1850 ml Intake Oral 2200 ml IV Total 550 ml Output Urine Total 900 ml # Voids 2 # Bowel Movements 1 Microbiology Micro Microbiology 06/28/19 Urine Culture - Final, Complete 06/28/19 Urine Culture Result 1 (JANINE) - Final, Complete 06/28/19 Blood Culture - Preliminary, Resulted NO GROWTH AFTER 3 DAYS Physical Exam HEENT: Neck Supple W Full Motion Chest: Symmetric LUNGS: Other (fine expiratory wheezes ) Heart: S1S2, RRR, murmurs (2/6 systolic murmur ) Abdomen: Soft N/T Extremities: Other (2+ bilateral LE edema ) Neurology: alert, oriented, follow commands Assessment Assessment 1. Acute respiratory failure with acute CHF, AECOPD, and anemia 2. Acute on chronic CHF; improved 3. PAFIB: presently SR. 4. Malignant HTN: blood pressure remains elevated 5. Hyperlipidemia; statin therapy 6. , mild 7. IRYA on CKD 8. COPD/moderate pulmonary HTN: stable 9. Anemia, chronic 10. Elevated d-dimer; LE US negative. Suspicion for acute PE low Recommendations Lasix therapy. Clonidine patch Increase hydralazine Monitor H and H with OAC Supportive care BRENDA RAY MD 07/01/19 1555: CARDIO Progress Notes Assessment Assessment Patient seen and examined. Agree with MANAGER WINTER's assessment and plan. Acute on chronic diastolic heart failure better compensated PAF, maintaining sinus rhythm Recent 2-D echo showed normal LV systolic function and recent cardiac catheterization did not show any significant coronary disease Blood pressure continues to be elevated Increase hydralazine dose to 100 mg TID XIANG GRAFF APRN Jul 01, 2019 15:12 BRENDA RAY MD Jul 01, 2019 15:55
[2019-07-01 19:20] VITALS: BP 190/92
[2019-07-01] MEDS: ATORVASTATIN CALCIUM 40 MG TABLET. PO SCH (21:21)
[2019-07-01] MEDS: DOCUSATE SODIUM 100 MG CAPSULE. PO PRN (21:21)
[2019-07-01] MEDS: APIXABAN 5 MG TABLET. PO SCH (21:22)
[2019-07-01 23:35] VITALS: BP 185/96
[2019-07-02 03:05] VITALS: BP 184/96
[2019-07-02] MEDS: cloNIDine HCL 0.1 MG TABLET PO PRN (03:47)
[2019-07-02 05:01] LABS: CALCIUM 8.8 mg/dL (8.5-10.1); CREATININE 2.9 mg/dL (0.6-1.0); GFR 20.1; POTASSIUM 4.2 mmol/L (3.5-5.1)
[2019-07-02 07:00] VITALS: BP 177/91
[2019-07-02] MEDS: BUDESONIDE 0.5 MG/2 ML NEBU. NEB SCH ×2 (07:20→19:28)
[2019-07-02] MEDS: IPRATRPIUM/ALBUTEROL 0.5/2.5MG 3 ML NEBU. NEB SCH ×4 (07:20→19:28)
--- NOTE | 2019-07-02 07:44 | PDOC ---
Infectious Disease Note Subjective Subjective Feeling much better Off supplemental O2 Denies CP/SOA/F/C/N/V/D Vital Sign Vital Signs Vital Signs Date Time Temp Pulse Resp B/P (MAP) Pulse Ox O2 Delivery O2 Flow Rate FiO2 07/02/19 07:23 100 Nasal Cannula 2.0 07/02/19 03:47 72 185/96 07/02/19 03:05 98.2 22 98.2 Physical Exam PHYSICAL EXAM GENERAL: Propped up in chair and alert HEENT: Pupils equally round. Oropharynx pink and moist. NECK: Supple. LUNGS: CTA HEART: S1, S2. Murmur present. ABDOMEN: Soft, nontender with bowel sounds present. EXTREMITIES: Pedal edema bilaterally. No cyanosis. SKIN: Warm to touch. No signs of rash. NEUROLOGIC: Alert, answers questions appropriately PIV Labs Lab Laboratory Tests Test 07/02/19 04:05 Sodium Level 145 mmol/L (136-145) Potassium Level 4.2 mmol/L (3.5-5.1) Chloride Level 109 mmol/L (98-107) Carbon Dioxide Level 23 mmol/L (21-32) Anion Gap 13 (6-14) Blood Urea Nitrogen 87 mg/dL (7-20) Creatinine 2.9 mg/dL (0.6-1.0) Estimated GFR (Cockcroft-Gault) 20.1 Glucose Level 91 mg/dL (70-99) Calcium Level 8.8 mg/dL (8.5-10.1) Micro Microbiology 06/28/19 Urine Culture - Final, Complete 06/28/19 Urine Culture Result 1 (JANINE) - Final, Complete 06/28/19 Blood Culture - Preliminary, Resulted NO GROWTH AFTER 3 DAYS Objective Assessment Pulmonary infiltrate, pneumonia not ruled out ? PE Acute on chronic CHF CKD stage 3 - worse Anemia A-fib h/o seizures Plan Plan of Care Off abx Probiotics Maintain aspiration precautions PT/OT ID to sign off D/w nursing DENVER MEADOWS MD Jul 02, 2019 07:44
[2019-07-02] MEDS: POLYETHYLENE GLYCOL 3350 17 GM PACKET. PO SCH (08:49)
[2019-07-02] MEDS: LACTOBACILLUS RHAMNOSUS GG 1 CAPSULE. PO SCH (08:50)
[2019-07-02] MEDS: PANTOPRAZOLE 40 MG TABLET.DR. PO SCH (08:50)
[2019-07-02] MEDS: amLODIPine BESYLATE 10 MG TABLET PO SCH (08:50)
[2019-07-02] MEDS: LABETALOL HCL 100 MG TABLET. PO SCH ×2 (08:52→21:18)
[2019-07-02] MEDS: APIXABAN 5 MG TABLET. PO SCH ×2 (08:52→21:17)
[2019-07-02] MEDS: CALCIUM ACETATE 667 MG CAPSULE PO SCH ×2 (08:52→17:00)
[2019-07-02] MEDS: POTASSIUM CHLORIDE 20 MEQ TABLET.ER. PO SCH (08:52)
[2019-07-02] MEDS: MULTIVITAMIN with MINERAL TABLET. PO SCH (08:53)
[2019-07-02] MEDS: HYDROXYCHLOROQUINE 200 MG TABLET PO SCH (08:53)
[2019-07-02] MEDS: FUROSEMIDE 40 MG/4 ML VIAL. IVP SCH (09:00)
--- NOTE | 2019-07-02 09:24 | PDOC ---
SUBJECTIVE ROS No complaints, reports good UOP LE edema prsent OBJECTIVE Vital Signs Vital Signs Date Time Temp Pulse Resp B/P (MAP) Pulse Ox O2 Delivery O2 Flow Rate FiO2 07/02/19 08:52 76 165/85 07/02/19 07:23 100 Nasal Cannula 2.0 07/02/19 07:00 97.5 22 97.5 I & 0 Intake and Output 07/02/19 07:00 Intake Total 500 ml Output Total 1050 ml Balance -550 ml Intake Oral 200 ml IV Total 300 ml Output Urine Total 1050 ml PHYSICAL EXAM Physical Exam General: No acute distress HEENT: On 02 by NC Neck Supple Lungs: Clear to auscultation, Non labored Heart: Regular rate, Normal S1, Normal S2, systolic murmur + Abdomen: Soft, No tenderness Extremities: LE edema 3+ Skin: No rash Neuro: Grossly normal Psych/Mental Status: Mental status NL, Mood NL No reid , No CVA or SP tenderness DIAGNOSIS/ASSESSMENT Assessment & Plan RIYA-n s/p cardiac Cath 06/07 Renal function didn't improve to baseline , worsening renal function E-Lytes , acid base no emergent indication for angiography nurse , supportive care, Monitor, LE edema- Significant , not her baseline, Negative venous Doppler of bilateral lower extremity Wt has gone up as well (per records) - on IV Lasix BID, consider IV Lasix drip ,monitor CxR pending , daily accurate standing weight, strict I/O 2/2 to meds cannot be ruled out CKD stage 3-Follows with our office, most recent appt with CLINICAL DIRECTOR in Apr Was admitted with Oct to [facility] , RIYA - ALIZA Dced to PP Hyernatremia- Mild, encourage PO water intake Respiratory distress- probable diastolic heart failure, possible pneumonia and an intermediate probability VQ scan for PE. Possible diastolic heart failure- mild aortic stenosis and elevated pulmonary artery pressures Atrial fibrillation. Chest Pain s/p cardiac Cath 06/07, Normal Membranous Nephropathy Dx in post Bx Proteinuria at Dx was 8 gm, improved most recent Pr/Cr <200 On ARB - may have to hold due to worsening renal function SLE- Use to follow with Rheumatology (Dr Hill) ,was on Imuran Currently only on Hydroxychloroquine Not seen for long time due to the financial constraints HTN- antihypertensives Per Cardiology Renal Doppler - No Doppler evidence of greater than 60% stenosis within the renal arteries. Anemia-Follows with Dr. Baez as OP and was on Aranesp Tsat mildly low, would hold IV Fe until Infection resolves Start SAUMYA, Monitor BP Dw RN COMMENT/RELEVANT DATA Meds Current Medications Medications (Trade) Dose Ordered Sig/Blaine Start Time Stop Time Status Last Admin Dose Admin Acetaminophen (Tylenol) 650 mg PRN Q4HRS PRN 06/28/19 15:15 Acetaminophen/ Hydrocodone Bitart (Lortab 5/325) 1 tab PRN Q4HRS PRN 06/29/19 07:45 06/30/19 20:58 1 TAB Albuterol Sulfate (Ventolin Neb Soln) 2.5 mg 1X ONCE 07/01/19 11:30 07/01/19 11:31 DC Albuterol/ Ipratropium (Duoneb) 3 ml RTQID 07/01/19 12:00 07/02/19 07:20 3 ML Amlodipine Besylate (Norvasc) 10 mg DAILY 06/28/19 15:00 07/02/19 08:50 10 MG Apixaban (Eliquis) 5 mg BID 07/01/19 21:00 07/02/19 08:52 5 MG Atorvastatin Calcium (Lipitor) 40 mg HS 06/28/19 21:00 07/01/19 21:21 40 MG Bisacodyl (Dulcolax Supp) 10 mg PRN DAILY PRN 06/29/19 10:30 06/30/19 15:09 10 MG Budesonide (Pulmicort) 0.5 mg RTBID 06/28/19 20:00 07/02/19 07:20 0.5 MG Calcium Acetate (Phoslo) 667 mg BIDWMEALS 06/28/19 17:00 07/02/19 08:52 667 MG Calcium Carbonate/ Glycine (Tums) 500 mg PRN AFTMEALHC PRN 06/29/19 07:45 07/02/19 08:49 500 MG Clonidine HCl (Catapres Tts-2) 1 patch WEEKLY 07/05/19 09:00 Clonidine HCl (Catapres) 0.1 mg PRN Q6HRS PRN 06/28/19 15:15 07/02/19 03:47 0.1 MG Darbepoetin Emmanuel (ARANESP for NON-DIALYSIS PTS) 60 mcg 1X ONCE 07/01/19 12:00 07/01/19 12:01 DC 07/01/19 11:11 60 MCG Docusate Sodium (Colace) 100 mg PRN BID PRN 06/28/19 15:15 07/01/19 21:21 100 MG Enoxaparin Sodium (Lovenox 80mg Syringe) 80 mg Q24H 06/28/19 22:00 07/01/19 16:08 DC 06/30/19 21:00 80 MG Enoxaparin Sodium (Lovenox Per Pharmacy Treatment Dosing) 1 each PRN DAILY PRN 06/28/19 22:00 UNV Furosemide (Lasix) 40 mg BID 07/01/19 11:00 07/01/19 21:20 40 MG Guaifenesin (Robitussin Dm) 10 ml PRN Q6HRS PRN 06/29/19 07:45 06/30/19 20:57 10 ML Guaifenesin (Robitussin) 200 mg PRN Q4HRS PRN 06/28/19 15:15 07/01/19 21:19 200 MG Hydralazine HCl (Apresoline) 100 mg TID 07/01/19 21:00 07/02/19 08:51 100 MG Hydroxychloroquine Sulfate (Plaquenil) 200 mg DAILY 06/28/19 15:00 07/02/19 08:53 200 MG Info (Anti-Coagulation Monitoring By Pharmacy) 1 each PRN DAILY PRN 07/01/19 14:00 Labetalol HCl (Trandate) 300 mg BID 06/28/19 21:00 07/02/19 08:52 300 MG Lactobacillus Rhamnosus (Culturelle) 1 cap BID 06/29/19 21:00 07/02/19 08:50 1 CAP Linezolid/Dextrose 300 ml @ 300 mls/hr Q12HR 06/28/19 15:30 07/01/19 15:08 DC 07/01/19 08:41 300 MLS/HR Lorazepam (Ativan) 0.5 mg PRN Q4HRS PRN 06/28/19 15:15 Magnesium Hydroxide (Milk Of Magnesia) 2,400 mg PRN DAILY PRN 06/29/19 10:30 06/30/19 15:08 2,400 MG Methylprednisolone Sodium Succinate (SOLU-Medrol 40MG VIAL) 40 mg Q12HR 06/30/19 21:00 07/01/19 13:49 DC 07/01/19 08:41 40 MG Multivitamins (Thera M Plus) 1 tab DAILY 06/29/19 09:00 07/02/19 08:53 1 TAB Ondansetron HCl (Zofran) 4 mg PRN Q4HRS PRN 06/28/19 15:15 Pantoprazole Sodium (Protonix) 40 mg DAILYAC 06/29/19 07:30 07/02/19 08:50 40 MG Piperacillin Sod/ Tazobactam Sod 3.375 gm/Sodium Chloride 50 ml @ 100 mls/hr 1X ONCE 06/28/19 14:30 06/28/19 14:59 DC 06/28/19 15:21 100 MLS/HR Polyethylene Glycol (miraLAX PACKET) 17 gm 1X ONCE 06/29/19 11:00 06/29/19 11:01 DC 06/29/19 12:30 17 GM Potassium Chloride (Klor-Con) 20 meq [id number] 06/29/19 08:00 07/02/19 08:52 20 MEQ Rivaroxaban (Xarelto) 10 mg DAILY 06/28/19 21:30 06/28/19 21:55 DC Sodium Chloride 1,000 ml @ 100 mls/hr Q10H 06/28/19 15:08 06/28/19 15:39 DC Sodium Chloride (Normal Saline Flush) 3 ml QSHIFT PRN 06/28/19 15:15 Lab Laboratory Tests Test 07/02/19 04:05 Sodium Level 145 mmol/L (136-145) Potassium Level 4.2 mmol/L (3.5-5.1) Chloride Level 109 mmol/L (98-107) Carbon Dioxide Level 23 mmol/L (21-32) Anion Gap 13 (6-14) Blood Urea Nitrogen 87 mg/dL (7-20) Creatinine 2.9 mg/dL (0.6-1.0) Estimated GFR (Cockcroft-Gault) 20.1 Glucose Level 91 mg/dL (70-99) Calcium Level 8.8 mg/dL (8.5-10.1) Results All relevant outside records, renal labs, imaging studies, telemetry/EKG's were reviewed. ELEONORA,SHEILA MD Jul 02, 2019 09:24
[2019-07-02 09:55] LABS: BASO % 0 % (0-3); EOS % 0 % (0-3); HEMATOCRIT 23.1 % (36.0-47.0); HEMOGLOBIN 7.4 g/dL (12.0-15.5); LYMPH # 1.8 x10^3/uL (1.0-4.8); LYMPH % 27 % (24-48); MEAN CORPUSCULAR HEMOGLOBIN 30 pg (25-35); MEAN CORPUSCULAR HGB CONC 32 g/dL (31-37); MEAN CORPUSCULAR VOLUME 94 fL (79-100); MONO # 0.7 x10^3/uL (0.0-1.1); MONO % 10 % (0-9); NEUT # 4.2 x10^3/uL (1.8-7.7); NEUT % 63 % (31-73); PLATELET COUNT 228 x10^3/uL (140-400); RED BLOOD COUNT 2.46 x10^6/uL (3.50-5.40); RED CELL DISTRIBUTION WIDTH 18.3 % (11.5-14.5); WHITE BLOOD COUNT 6.7 x10^3/uL (4.0-11.0)
--- NOTE | 2019-07-02 10:42 | PDOC ---
PULMONARY PROGRESS NOTES Subjective NOT MORE SOA NO CHEST PAIN Vitals Vital Signs Date Time Temp Pulse Resp B/P (MAP) Pulse Ox O2 Delivery O2 Flow Rate FiO2 07/02/19 08:52 76 165/85 07/02/19 08:00 Room Air 2.0 07/02/19 07:23 100 07/02/19 07:00 97.5 22 97.5 ROS: No Nausea, No Chest Pain, No Abdominal Pain, No Increase Cough General: Alert HEENT: Other Lungs: Crackles Cardiovascular: S1, S2 Abdomen: Soft, Non-tender Neuro Exam: Alert, Oriented Extremities: Other (edema) Skin: Warm Labs Laboratory Tests Test 07/02/19 04:05 White Blood Count 6.7 x10^3/uL (4.0-11.0) Red Blood Count 2.46 x10^6/uL (3.50-5.40) Hemoglobin 7.4 g/dL (12.0-15.5) Hematocrit 23.1 % (36.0-47.0) Mean Corpuscular Volume 94 fL (79-100) Mean Corpuscular Hemoglobin 30 pg (25-35) Mean Corpuscular Hemoglobin Concent 32 g/dL (31-37) Red Cell Distribution Width 18.3 % (11.5-14.5) Platelet Count 228 x10^3/uL (140-400) Neutrophils (%) (Auto) 63 % (31-73) Lymphocytes (%) (Auto) 27 % (24-48) Monocytes (%) (Auto) 10 % (0-9) Eosinophils (%) (Auto) 0 % (0-3) Basophils (%) (Auto) 0 % (0-3) Neutrophils # (Auto) 4.2 x10^3/uL (1.8-7.7) Lymphocytes # (Auto) 1.8 x10^3/uL (1.0-4.8) Monocytes # (Auto) 0.7 x10^3/uL (0.0-1.1) Eosinophils # (Auto) 0.0 x10^3/uL (0.0-0.7) Basophils # (Auto) 0.0 x10^3/uL (0.0-0.2) Sodium Level 145 mmol/L (136-145) Potassium Level 4.2 mmol/L (3.5-5.1) Chloride Level 109 mmol/L (98-107) Carbon Dioxide Level 23 mmol/L (21-32) Anion Gap 13 (6-14) Blood Urea Nitrogen 87 mg/dL (7-20) Creatinine 2.9 mg/dL (0.6-1.0) Estimated GFR (Cockcroft-Gault) 20.1 Glucose Level 91 mg/dL (70-99) Calcium Level 8.8 mg/dL (8.5-10.1) Laboratory Tests Test 07/02/19 04:05 White Blood Count 6.7 x10^3/uL (4.0-11.0) Red Blood Count 2.46 x10^6/uL (3.50-5.40) Hemoglobin 7.4 g/dL (12.0-15.5) Hematocrit 23.1 % (36.0-47.0) Mean Corpuscular Volume 94 fL (79-100) Mean Corpuscular Hemoglobin 30 pg (25-35) Mean Corpuscular Hemoglobin Concent 32 g/dL (31-37) Red Cell Distribution Width 18.3 % (11.5-14.5) Platelet Count 228 x10^3/uL (140-400) Neutrophils (%) (Auto) 63 % (31-73) Lymphocytes (%) (Auto) 27 % (24-48) Monocytes (%) (Auto) 10 % (0-9) Eosinophils (%) (Auto) 0 % (0-3) Basophils (%) (Auto) 0 % (0-3) Neutrophils # (Auto) 4.2 x10^3/uL (1.8-7.7) Lymphocytes # (Auto) 1.8 x10^3/uL (1.0-4.8) Monocytes # (Auto) 0.7 x10^3/uL (0.0-1.1) Eosinophils # (Auto) 0.0 x10^3/uL (0.0-0.7) Basophils # (Auto) 0.0 x10^3/uL (0.0-0.2) Sodium Level 145 mmol/L (136-145) Potassium Level 4.2 mmol/L (3.5-5.1) Chloride Level 109 mmol/L (98-107) Carbon Dioxide Level 23 mmol/L (21-32) Anion Gap 13 (6-14) Blood Urea Nitrogen 87 mg/dL (7-20) Creatinine 2.9 mg/dL (0.6-1.0) Estimated GFR (Cockcroft-Gault) 20.1 Glucose Level 91 mg/dL (70-99) Calcium Level 8.8 mg/dL (8.5-10.1) Medications Active Scripts Medications Dose Route/Sig Max Daily Dose Days Date Category Amlodipine Besylate 10 Mg Tablet 10 Mg PO DAILY 30 06/13/19 Rx Labetalol Hcl 200 Mg Tablet 300 Mg PO BID 30 06/13/19 Rx Hydralazine Hcl 25 Mg Tablet 25 Mg PO TID 30 06/13/19 Rx Clonidine Tts-2 (Clonidine) 1 Each Patch.tdwk 1 Patch TD WEEKLY 30 06/13/19 Rx Protonix (Pantoprazole Sodium) 40 Mg Tablet.dr 40 Mg PO DAILYAC 06/05/19 Reported Hydroxychloroquine Sulfate 200 Mg Tablet 200 Mg PO DAILY 06/05/19 Reported Multivitamins (Multivitamin) 1 Each Tablet 1 Tab PO DAILY 06/05/19 Reported Symbicort 160-4.5 Mcg Inhaler (Budesonide/Formoterol Fumarate) 10.2 Gm Hfa.aer.ad 1 Puff IH BID 12/13/18 Reported Spiriva (Tiotropium Bynum) 18 Mcg Cap.w.dev 2 Inh IH DAILY 12/13/18 Reported Proair Hfa Inhaler (Albuterol Sulfate) 8.5 Gm Hfa.aer.ad 1 Puff INH PRN Q6HRS PRN 12/13/18 Reported Xarelto (Rivaroxaban) 10 Mg Tablet 10 Mg PO DAILY 12/13/18 Reported Atorvastatin Calcium 40 Mg Tablet 40 Mg PO HS 12/13/18 Reported Phoslo (Calcium Acetate) 667 Mg Capsule 1 Cap PO BIDWMEALS 06/11/14 Reported K-Tab ER (Potassium Chloride) 20 Meq Tablet.er 20 Meq PO DAILY 05/23/14 Reported Impression . IMPRESSION: 1. Acute respiratory failure SUSPECT MOSTLY CHF 2. Abnormal chest x-ray. 3. Acute exacerbation of chronic obstructive pulmonary disease. 4. Acute diastolic congestive heart failure. 5. Chronic kidney disease. 6. Ex-smoker. 7. Paroxysmal atrial fibrillation. 8. History of pulmonary embolism. 9. Anemia. 10. Hypertension. 11. LOWE EXT VENOUS DOPPLER NEGATIVE Plan . DOUBT PE CLINICAL SUSPICION IS LOW TAPER PRED , DEFER ANTIBX USE TO ID OK TO TRANSFER SOON OR DC SOON ON ANTICOUGULATION FOR AF ROSE MARIE BANG MD Jul 02, 2019 10:42
--- NOTE | 2019-07-02 10:53 | RAD ---
CHEST PA LATERAL History: Reevaluate CHF. Post Lasix. Comparison: AP chest, 4 days ago. Findings: Atherosclerotic aortic arch. Cardiac size upper limits of normal. Bilateral interstitial opacities have increased from prior study. Patchy airspace disease in the right upper lobe and left midlung is improved. No pneumothorax. No layering pleural effusion. There is trace fluid along the fissures. Bones appear stable. IMPRESSION: 1. Diffuse interstitial opacities may be interstitial edema or pneumonia. 2. Right upper lobe and left midlung airspace opacities are improved. 3. Trace pleural fluid along the fissures. Electronically signed by: Silvino Rodrigues MD (07/02/2019 10:50 AM) [id number]
[2019-07-02 11:00] VITALS: BP 160/84
--- NOTE | 2019-07-02 12:19 | PDOC ---
PROGRESS NOTES Chief Complaint Chief Complaint 1. Acute respiratory failure, multifactorial in etiology including acute diastolic congestive heart failure, acute exacerbation of chronic obstructive pulmonary disease? thromboembolic disease versus others. 2. Abnormal chest x-ray. 3. Acute exacerbation of chronic obstructive pulmonary disease. 4. Acute diastolic congestive heart failure. 5. Chronic kidney disease. 6. Ex-smoker. 7. Paroxysmal atrial fibrillation. 8. History of pulmonary embolism. 9. Anemia. 10. Hypertension. 11. Acute precip drop hgb - likely sec to CKD 12. NOrmocytic, chronic anemia 13. MEt enceph 14. LEg edema History of Present Illness History of Present Illness she feels soa still and leg edema CXR: IMPRESSION: (i ordered today, 2 views as interval ff up) 1. Diffuse interstitial opacities may be interstitial edema or pneumonia. 2. Right upper lobe and left midlung airspace opacities are improved. 3. Trace pleural fluid along the fissures. CREat 2 plus Renal on board - matthew Huitron RN PLAn: no dc today - lavell giron ELytes daily since on gtt now KEep CVC since donnieix bree Huitron RN [facility] Vitals Vitals Vital Signs Date Time Temp Pulse Resp B/P (MAP) Pulse Ox O2 Delivery O2 Flow Rate FiO2 07/02/19 11:30 100 Nasal Cannula 3.5 07/02/19 08:52 76 165/85 07/02/19 07:00 97.5 22 97.5 Physical Exam Physical Exam GENERAL: Propped up in chair and alert HEENT: Pupils equally round. Oropharynx pink and moist. NECK: Supple. LUNGS: CTA HEART: S1, S2. Murmur present. ABDOMEN: Soft, nontender with bowel sounds present. EXTREMITIES: Pedal edema bilaterally. No cyanosis. SKIN: Warm to touch. No signs of rash. NEUROLOGIC: Alert, answers questions appropriately PIV General: mild distress Heart: Regular rate, Normal S1, Normal S2 Lungs: Crackles Abdomen: Normal bowel sounds Extremities: No cyanosis, Other (plus 2-3 edema) Skin: No rashes, No breakdown Labs LABS Laboratory Tests Test 07/02/19 04:05 White Blood Count 6.7 x10^3/uL (4.0-11.0) Red Blood Count 2.46 x10^6/uL (3.50-5.40) Hemoglobin 7.4 g/dL (12.0-15.5) Hematocrit 23.1 % (36.0-47.0) Mean Corpuscular Volume 94 fL (79-100) Mean Corpuscular Hemoglobin 30 pg (25-35) Mean Corpuscular Hemoglobin Concent 32 g/dL (31-37) Red Cell Distribution Width 18.3 % (11.5-14.5) Platelet Count 228 x10^3/uL (140-400) Neutrophils (%) (Auto) 63 % (31-73) Lymphocytes (%) (Auto) 27 % (24-48) Monocytes (%) (Auto) 10 % (0-9) Eosinophils (%) (Auto) 0 % (0-3) Basophils (%) (Auto) 0 % (0-3) Neutrophils # (Auto) 4.2 x10^3/uL (1.8-7.7) Lymphocytes # (Auto) 1.8 x10^3/uL (1.0-4.8) Monocytes # (Auto) 0.7 x10^3/uL (0.0-1.1) Eosinophils # (Auto) 0.0 x10^3/uL (0.0-0.7) Basophils # (Auto) 0.0 x10^3/uL (0.0-0.2) Sodium Level 145 mmol/L (136-145) Potassium Level 4.2 mmol/L (3.5-5.1) Chloride Level 109 mmol/L (98-107) Carbon Dioxide Level 23 mmol/L (21-32) Anion Gap 13 (6-14) Blood Urea Nitrogen 87 mg/dL (7-20) Creatinine 2.9 mg/dL (0.6-1.0) Estimated GFR (Cockcroft-Gault) 20.1 Glucose Level 91 mg/dL (70-99) Calcium Level 8.8 mg/dL (8.5-10.1) Review of Systems Review of Systems soa on exertion,, leg edema, no CP, no abd issues, weak on exertion, Assessment and Plan Assessmemt and Plan Problems Medical Problems: (1) Acute exacerbation of CHF (congestive heart failure) Status: Acute (2) Shortness of breath Status: Acute Comment Review of Relevant I have reviewed the following items gregorio (where applicable) has been applied. Labs Laboratory Tests Test 07/02/19 04:05 White Blood Count 6.7 x10^3/uL (4.0-11.0) Red Blood Count 2.46 x10^6/uL (3.50-5.40) Hemoglobin 7.4 g/dL (12.0-15.5) Hematocrit 23.1 % (36.0-47.0) Mean Corpuscular Volume 94 fL (79-100) Mean Corpuscular Hemoglobin 30 pg (25-35) Mean Corpuscular Hemoglobin Concent 32 g/dL (31-37) Red Cell Distribution Width 18.3 % (11.5-14.5) Platelet Count 228 x10^3/uL (140-400) Neutrophils (%) (Auto) 63 % (31-73) Lymphocytes (%) (Auto) 27 % (24-48) Monocytes (%) (Auto) 10 % (0-9) Eosinophils (%) (Auto) 0 % (0-3) Basophils (%) (Auto) 0 % (0-3) Neutrophils # (Auto) 4.2 x10^3/uL (1.8-7.7) Lymphocytes # (Auto) 1.8 x10^3/uL (1.0-4.8) Monocytes # (Auto) 0.7 x10^3/uL (0.0-1.1) Eosinophils # (Auto) 0.0 x10^3/uL (0.0-0.7) Basophils # (Auto) 0.0 x10^3/uL (0.0-0.2) Sodium Level 145 mmol/L (136-145) Potassium Level 4.2 mmol/L (3.5-5.1) Chloride Level 109 mmol/L (98-107) Carbon Dioxide Level 23 mmol/L (21-32) Anion Gap 13 (6-14) Blood Urea Nitrogen 87 mg/dL (7-20) Creatinine 2.9 mg/dL (0.6-1.0) Estimated GFR (Cockcroft-Gault) 20.1 Glucose Level 91 mg/dL (70-99) Calcium Level 8.8 mg/dL (8.5-10.1) Laboratory Tests Test 07/02/19 04:05 White Blood Count 6.7 x10^3/uL (4.0-11.0) Red Blood Count 2.46 x10^6/uL (3.50-5.40) Hemoglobin 7.4 g/dL (12.0-15.5) Hematocrit 23.1 % (36.0-47.0) Mean Corpuscular Volume 94 fL (79-100) Mean Corpuscular Hemoglobin 30 pg (25-35) Mean Corpuscular Hemoglobin Concent 32 g/dL (31-37) Red Cell Distribution Width 18.3 % (11.5-14.5) Platelet Count 228 x10^3/uL (140-400) Neutrophils (%) (Auto) 63 % (31-73) Lymphocytes (%) (Auto) 27 % (24-48) Monocytes (%) (Auto) 10 % (0-9) Eosinophils (%) (Auto) 0 % (0-3) Basophils (%) (Auto) 0 % (0-3) Neutrophils # (Auto) 4.2 x10^3/uL (1.8-7.7) Lymphocytes # (Auto) 1.8 x10^3/uL (1.0-4.8) Monocytes # (Auto) 0.7 x10^3/uL (0.0-1.1) Eosinophils # (Auto) 0.0 x10^3/uL (0.0-0.7) Basophils # (Auto) 0.0 x10^3/uL (0.0-0.2) Sodium Level 145 mmol/L (136-145) Potassium Level 4.2 mmol/L (3.5-5.1) Chloride Level 109 mmol/L (98-107) Carbon Dioxide Level 23 mmol/L (21-32) Anion Gap 13 (6-14) Blood Urea Nitrogen 87 mg/dL (7-20) Creatinine 2.9 mg/dL (0.6-1.0) Estimated GFR (Cockcroft-Gault) 20.1 Glucose Level 91 mg/dL (70-99) Calcium Level 8.8 mg/dL (8.5-10.1) Microbiology 06/28/19 Urine Culture - Final, Complete 06/28/19 Urine Culture Result 1 (JANINE) - Final, Complete 06/28/19 Blood Culture - Preliminary, Resulted NO GROWTH AFTER 3 DAYS Medications Current Medications Albuterol/ Ipratropium (Duoneb) 3 ml 1X ONCE NEB Last administered on 06/28/19at 12:30; Start 06/28/19 at 12:30; Stop 06/28/19 at 12:31; Status DC Piperacillin Sod/ Tazobactam Sod 3.375 gm/Sodium Chloride 50 ml @ 100 mls/hr Q6HRS IV Last administered on 07/01/19at 11:11; Start 06/29/19 at 00:00; Stop 07/01/19 at 15:08; Status DC Piperacillin Sod/ Tazobactam Sod 3.375 gm/Sodium Chloride 50 ml @ 100 mls/hr 1X ONCE IV Last administered on 06/28/19at 15:21; Start 06/28/19 at 14:30; Stop 06/28/19 at 14:59; Status DC Albuterol Sulfate (Ventolin Neb Soln) 2.5 mg PRN Q6HRS PRN INH SHORTNESS OF BREATH Last administered on 07/02/19at 05:05; Start 06/28/19 at 15:00 Amlodipine Besylate (Norvasc) 10 mg DAILY PO Last administered on 07/02/19at 08:50; Start 06/28/19 at 15:00 Atorvastatin Calcium (Lipitor) 40 mg HS PO Last administered on 07/01/19at 21:21; Start 06/28/19 at 21:00 Calcium Acetate (Phoslo) 667 mg BIDWMEALS PO Last administered on 07/02/19 08:52; Start 06/28/19 at 17:00 Clonidine HCl (Catapres Tts-2) 1 patch WEEKLY TD ; Start 07/05/19 at 09:00 Hydralazine HCl (Apresoline) 25 mg TID PO Last administered on 07/01/19at 08:38; Start 06/28/19 at 15:00; Stop 07/01/19 at 15:16; Status DC Hydroxychloroquine Sulfate (Plaquenil) 200 mg DAILY PO Last administered on 07/02/19 08:53; Start 06/28/19 at 15:00 Labetalol HCl (Trandate) 300 mg BID PO Last administered on 07/02/19at 08:52; Start 06/28/19 at 21:00 Pantoprazole Sodium (Protonix) 40 mg DAILYAC PO Last administered on 07/02/19at 08:50; Start 06/29/19 at 07:30 Rivaroxaban (Xarelto) 10 mg DAILY PO ; Start 06/28/19 at 21:30; Stop 06/28/19 at 21:55; Status DC Budesonide (Pulmicort) 0.5 mg RTBID NEB Last administered on 07/02/19at 07:20; Start 06/28/19 at 20:00 Multivitamins (Thera M Plus) 1 tab DAILY PO Last administered on 07/02/19at 08:53; Start 06/29/19 at 09:00 Potassium Chloride (Klor-Con) 20 meq DAILYWBKFT PO Last administered on 07/02/19 08:52; Start 06/29/19 at 08:00 Albuterol/ Ipratropium (Duoneb) 3 ml RTQID NEB ; Start 06/28/19 at 16:00; Stop 06/28/19 at 15:16; Status DC Linezolid/Dextrose 300 ml @ 300 mls/hr Q12HR IV Last administered on 07/01/19at 08:41; Start 06/28/19 at 15:30; Stop 07/01/19 at 15:08; Status DC Sodium Chloride (Normal Saline Flush) 3 ml QSHIFT PRN IV AFTER MEDS AND BLOOD DRAWS; Start 06/28/19 at 15:15 Sodium Chloride 1,000 ml @ 100 mls/hr Q10H IV ; Start 06/28/19 at 15:08; Stop 06/28/19 at 15:39; Status DC Ondansetron HCl (Zofran) 4 mg PRN Q4HRS PRN IV NAUSEA/VOMITING; Start 06/28/19 at 15:15 Acetaminophen (Tylenol) 650 mg PRN Q4HRS PRN PO TEMP OVER 100.4F OR MILD PAIN; Start 06/28/19 at 15:15 Clonidine HCl (Catapres) 0.1 mg PRN Q6HRS PRN PO SBP>160 OR DBP>90 Last administered on 07/02/19at 03:47; Start 06/28/19 at 15:15 Docusate Sodium (Colace) 100 mg PRN BID PRN PO HARD STOOLS Last administered on 07/01/19at 21:21; Start 06/28/19 at 15:15 Albuterol/ Ipratropium (Duoneb) 3 ml Q4HRS NEB Last administered on 07/01/19at 07:38; Start 06/28/19 at 16:00; Stop 07/01/19 at 11:20; Status DC Guaifenesin (Robitussin) 200 mg PRN Q4HRS PRN PO COUGH Last administered on 07/01/19at 21:19; Start 06/28/19 at 15:15 Lorazepam (Ativan) 0.5 mg PRN Q4HRS PRN PO ANXIETY / AGITATION; Start 06/28/19 at 15:15 Furosemide (Lasix) 40 mg 1X ONCE IVP Last administered on 06/28/19at 15:45; Start 06/28/19 at 16:00; Stop 06/28/19 at 16:01; Status DC Enoxaparin Sodium (Lovenox Per Pharmacy Treatment Dosing) 1 each PRN DAILY PRN MC SEE COMMENTS; Start 06/28/19 at 21:15; Status UNV Enoxaparin Sodium (Lovenox Per Pharmacy Treatment Dosing) 1 each PRN DAILY PRN MC SEE COMMENTS; Start 06/28/19 at 22:00; Stop 07/01/19 at 16:13; Status DC Enoxaparin Sodium (Lovenox 80mg Syringe) 80 mg Q24H SQ Last administered on 06/30/19at 21:00; Start 06/28/19 at 22:00; Stop 07/01/19 at 16:08; Status DC Enoxaparin Sodium (Lovenox Per Pharmacy Treatment Dosing) 1 each PRN DAILY PRN MC SEE COMMENTS; Start 06/28/19 at 22:00; Status UNV Guaifenesin (Robitussin Dm) 10 ml PRN Q6HRS PRN PO COUGH 1ST CHOICE Last administered on 06/30/19at 20:57; Start 06/29/19 at 07:45 Calcium Carbonate/ Glycine (Tums) 500 mg PRN AFTMEALHC PRN PO INDIGESTION Last administered on 07/02/19at 08:49; Start 06/29/19 at 07:45 Acetaminophen/ Hydrocodone Bitart (Lortab 5/325) 1 tab PRN Q4HRS PRN PO MODERATE-SEVERE PAIN Last administered on 06/30/19at 20:58; Start 06/29/19 at 07:45 Methylprednisolone Sodium Succinate (SOLU-Medrol 40MG VIAL) 40 mg Q8HRS IV Last administered on 06/30/19at 06:05; Start 06/29/19 at 08:30; Stop 06/30/19 at 08:33; Status DC Furosemide (Lasix) 40 mg DAILY IVP Last administered on 07/01/19at 08:40; Start 06/29/19 at 08:30; Stop 07/01/19 at 11:01; Status DC Lactobacillus Rhamnosus (Culturelle) 1 cap BID PO Last administered on 07/02/19at 08:50; Start 06/29/19 at 21:00 Polyethylene Glycol (miraLAX PACKET) 17 gm DAILY PO Last administered on 07/02/19at 08:49; Start 06/30/19 at 09:00 Polyethylene Glycol (miraLAX PACKET) 17 gm 1X ONCE PO Last administered on 06/29/19at 12:30; Start 06/29/19 at 11:00; Stop 06/29/19 at 11:01; Status DC Magnesium Hydroxide (Milk Of Magnesia) 2,400 mg 1X ONCE PO Last administered on 06/29/19at 12:29; Start 06/29/19 at 11:00; Stop 06/29/19 at 11:01; Status DC Magnesium Hydroxide (Milk Of Magnesia) 2,400 mg PRN DAILY PRN PO CONSTIPATION Last administered on 06/30/19at 15:08; Start 06/29/19 at 10:30 Bisacodyl (Dulcolax Supp) 10 mg PRN DAILY PRN OR CONSTIPATION Last administered on 06/30/19at 15:09; Start 06/29/19 at 10:30 Methylprednisolone Sodium Succinate (SOLU-Medrol 40MG VIAL) 40 mg Q12HR IV Last administered on 07/01/19at 08:41; Start 06/30/19 at 21:00; Stop 07/01/19 at 13:49; Status DC Darbepoetin Emmanuel (ARANESP for NON-DIALYSIS PTS) 60 mcg 1X ONCE SQ Last administered on 07/01/19at 11:11; Start 07/01/19 at 12:00; Stop 07/01/19 at 12:01; Status DC Furosemide (Lasix) 40 mg BID IVP Last administered on 11/18/19at 21:20; Start 07/01/19 at 11:00; Stop 07/02/19 at 12:12; Status DC Albuterol Sulfate (Ventolin Neb Soln) 2.5 mg 1X ONCE NEB ; Start 07/01/19 at 11:30; Stop 07/01/19 at 11:31; Status DC Albuterol/ Ipratropium (Duoneb) 3 ml RTQID NEB Last administered on 07/02/19at 11:30; Start 07/01/19 at 12:00 Info (Anti-Coagulation Monitoring By Pharmacy) 1 each PRN DAILY PRN MC SEE COMMENTS; Start 07/01/19 at 14:00 Hydralazine HCl (Apresoline) 50 mg TID PO Last administered on 07/01/19at 15:36; Start 07/01/19 at 15:15; Stop 07/01/19 at 15:56; Status DC Hydralazine HCl (Apresoline) 100 mg TID PO Last administered on 07/02/19at 08:51; Start 07/01/19 at 21:00 Apixaban (Eliquis) 5 mg BID PO Last administered on 07/02/19at 08:52; Start 07/01/19 at 21:00 Furosemide 100 mg/ Sodium Chloride 100 ml @ 5 mls/hr CONT PRN IV SEE I/O RE CORD; Start 07/02/19 at 12:00 Active Scripts Active Lasix (Furosemide) 40 Mg Tablet 1 Tab PO DAILY 5 Days Guaifenesin 100 Mg/5 Ml Liquid 200 Mg PO PRN Q4HRS PRN 7 Days Ativan (Lorazepam) 0.5 Mg Tablet 0.5 Mg PO PRN Q4HRS PRN Hydrocodone-Apap 5-325 (Hydrocodone Bit/Acetaminophen) 1 Tab Tablet 1 Tab PO PRN Q4HRS PRN Amlodipine Besylate 10 Mg Tablet 10 Mg PO DAILY 30 Days Labetalol Hcl 200 Mg Tablet 300 Mg PO BID 30 Days Hydralazine Hcl 25 Mg Tablet 25 Mg PO TID 30 Days Clonidine Tts-2 (Clonidine) 1 Each Patch.tdwk 1 Patch TD WEEKLY 30 Days Reported Protonix (Pantoprazole Sodium) 40 Mg Tablet.dr 40 Mg PO DAILYAC Hydroxychloroquine Sulfate 200 Mg Tablet 200 Mg PO DAILY Multivitamins (Multivitamin) 1 Each Tablet 1 Tab PO DAILY Symbicort 160-4.5 Mcg Inhaler (Budesonide/Formoterol Fumarate) 10.2 Gm Hfa.aer.ad 1 Puff IH BID Spiriva (Tiotropium [place]) 18 Mcg Cap.w.dev 2 Inh IH DAILY Proair Hfa Inhaler (Albuterol Sulfate) 8.5 Gm Hfa.aer.ad 1 Puff INH PRN Q6HRS PRN Xarelto (Rivaroxaban) 10 Mg Tablet 10 Mg PO DAILY Atorvastatin Calcium 40 Mg Tablet 40 Mg PO HS Phoslo (Calcium Acetate) 667 Mg Capsule 1 Cap PO BIDWMEALS K-Tab ER (Potassium Chloride) 20 Meq Tablet.er 20 Meq PO DAILY Vitals/I & O Vital Sign - Last 24 Hours 07/01/19 07/01/19 07/01/19 07/01/19 15:00 15:36 15:56 17:55 Pulse 68 78 81 Resp 18 B/P (MAP) 199/96 (130) 194/93 195/97 Pulse Ox 97 96 O2 Delivery Room Air Room Air 07/01/19 07/01/19 07/01/19 07/01/19 19:20 19:54 20:00 21:21 Temp 97.9 97.9 Pulse 77 77 Resp 20 B/P (MAP) 190/92 (124) 190/92 Pulse Ox 97 96 O2 Delivery Room Air Room Air Room Air 07/01/19 07/01/19 07/02/19 07/02/19 21:21 23:35 03:05 03:47 Temp 98.1 98.2 98.1 98.2 Pulse 77 72 75 72 Resp 18 22 B/P (MAP) 190/92 185/96 (125) 184/96 (125) 185/96 Pulse Ox 96 96 O2 Delivery Room Air Room Air 07/02/19 07/02/19 07/02/19 07/02/19 05:05 07:00 07:23 08:00 Temp 97.5 97.5 Pulse 65 Resp 22 B/P (MAP) 177/91 (119) Pulse Ox 100 98 100 O2 Delivery Room Air Room Air Nasal Cannula Room Air O2 Flow Rate 2.0 2.0 07/02/19 07/02/19 07/02/19 07/02/19 08:50 08:51 08:52 11:30 Pulse 79 77 76 B/P (MAP) 165/85 165/85 165/85 Pulse Ox 100 O2 Delivery Nasal Cannula O2 Flow Rate 3.5 Intake and Output 07/01/19 07/01/19 07/02/19 15:00 23:00 07:00 Intake Total 300 ml 200 ml Output Total 550 ml 200 ml 300 ml Balance -250 ml -200 ml -100 ml SHARA SHEEHAN MD Jul 02, 2019 12:19
[2019-07-02] MEDS: FUROSEMIDE INJ 100 MG in IV NORMAL SALINE 100ML 100 ML IV PRN ×2 (13:26→18:14)
--- NOTE | 2019-07-02 14:14 | PDOC ---
PROGRESS NOTES Subjective Subjective c/o dyspnea and edema Objective Objective Vital Signs Date Time Temp Pulse Resp B/P (MAP) Pulse Ox O2 Delivery O2 Flow Rate FiO2 07/02/19 13:30 67 160/84 07/02/19 11:30 100 Nasal Cannula 3.5 07/02/19 11:00 97.6 22 97.6 Intake and Output 07/02/19 07:00 Intake Total 500 ml Output Total 1050 ml Balance -550 ml Intake Oral 200 ml IV Total 300 ml Output Urine Total 1050 ml Physical Exam Abdomen: Normal bowel sounds Heart: Regular rate Extremities: No cyanosis, Other (plus 2-3 edema) General: mild distress HEENT: Atraumatic, EOMI, Mucous membr. moist/pink Lungs: Other (mildly decreased breath sounds) Neuro: Normal speech, Cranial nerves 3-12 NL Psych/Mental Status: Mood NL Skin: No rashes, No breakdown Assessment Assessment 1. Acute respiratory failure secondary to acute on chronic diastolic heart failure. Inadequate diuresis thus far and hence started on Lasix drip per nephrology team. Recent 2-D echo showed normal LV systolic function and cardiac catheterization did not show any significant coronary disease. 2. PAFIB: presently SR. continue current medical regimen. 3. Malignant HTN: Blood pressure improving with increased dose of hydralazine. Continue other medications. 4. Hyperlipidemia; statin therapy 5. RIYA on CKD: Nephrology following Plan Plan of Care Problems Medical Problems: (1) Acute exacerbation of CHF (congestive heart failure) Status: Acute (2) Shortness of breath Status: Acute Comment Review of Relevant I have reviewed the following items gregorio (where applicable) has been applied. Labs Laboratory Tests Test 07/02/19 04:05 White Blood Count 6.7 x10^3/uL (4.0-11.0) Red Blood Count 2.46 x10^6/uL (3.50-5.40) Hemoglobin 7.4 g/dL (12.0-15.5) Hematocrit 23.1 % (36.0-47.0) Mean Corpuscular Volume 94 fL (79-100) Mean Corpuscular Hemoglobin 30 pg (25-35) Mean Corpuscular Hemoglobin Concent 32 g/dL (31-37) Red Cell Distribution Width 18.3 % (11.5-14.5) Platelet Count 228 x10^3/uL (140-400) Neutrophils (%) (Auto) 63 % (31-73) Lymphocytes (%) (Auto) 27 % (24-48) Monocytes (%) (Auto) 10 % (0-9) Eosinophils (%) (Auto) 0 % (0-3) Basophils (%) (Auto) 0 % (0-3) Neutrophils # (Auto) 4.2 x10^3/uL (1.8-7.7) Lymphocytes # (Auto) 1.8 x10^3/uL (1.0-4.8) Monocytes # (Auto) 0.7 x10^3/uL (0.0-1.1) Eosinophils # (Auto) 0.0 x10^3/uL (0.0-0.7) Basophils # (Auto) 0.0 x10^3/uL (0.0-0.2) Sodium Level 145 mmol/L (136-145) Potassium Level 4.2 mmol/L (3.5-5.1) Chloride Level 109 mmol/L (98-107) Carbon Dioxide Level 23 mmol/L (21-32) Anion Gap 13 (6-14) Blood Urea Nitrogen 87 mg/dL (7-20) Creatinine 2.9 mg/dL (0.6-1.0) Estimated GFR (Cockcroft-Gault) 20.1 Glucose Level 91 mg/dL (70-99) Calcium Level 8.8 mg/dL (8.5-10.1) Microbiology 06/28/19 Urine Culture - Final, Complete 06/28/19 Urine Culture Result 1 (JANINE) - Final, Complete 06/28/19 Blood Culture - Preliminary, Resulted NO GROWTH AFTER 4 DAYS Medications Current Medications Apixaban (Eliquis) 5 mg BID PO Last administered on 07/02/19at 08:52; Start 07/01/19 at 21:00 Clonidine HCl (Catapres Tts-2) 1 patch WEEKLY TD ; Start 07/05/19 at 09:00 Furosemide 100 mg/ Sodium Chloride 100 ml @ 5 mls/hr CONT PRN IV SEE I/O RECORD Last administered on 07/02/19at 13:26; Start 07/02/19 at 12:00 Hydralazine HCl (Apresoline) 50 mg TID PO Last administered on 07/01/19at 15:36; Start 07/01/19 at 15:15; Stop 07/01/19 at 15:56; Status DC Hydralazine HCl (Apresoline) 100 mg TID PO Last administered on 07/02/19at 13:30; Start 07/01/19 at 21:00 Vitals/I & O Vital Sign - Last 24 Hours 07/01/19 07/01/19 07/01/19 07/01/19 15:00 15:36 15:56 17:55 Pulse 68 78 81 Resp 18 B/P (MAP) 199/96 (130) 194/93 195/97 Pulse Ox 97 96 O2 Delivery Room Air Room Air 07/01/19 07/01/19 07/01/19 07/01/19 19:20 19:54 20:00 21:21 Temp 97.9 97.9 Pulse 77 77 Resp 20 B/P (MAP) 190/92 (124) 190/92 Pulse Ox 97 96 O2 Delivery Room Air Room Air Room Air 07/01/19 07/01/19 07/02/19 07/02/19 21:21 23:35 03:05 03:47 Temp 98.1 98.2 98.1 98.2 Pulse 77 72 75 72 Resp 18 22 B/P (MAP) 190/92 185/96 (125) 184/96 (125) 185/96 Pulse Ox 96 96 O2 Delivery Room Air Room Air 07/02/19 07/02/19 07/02/19 07/02/19 05:05 07:00 07:23 08:00 Temp 97.5 97.5 Pulse 65 Resp 22 B/P (MAP) 177/91 (119) Pulse Ox 100 98 100 O2 Delivery Room Air Room Air Nasal Cannula Room Air O2 Flow Rate 2.0 2.0 07/02/19 07/02/19 07/02/19 07/02/19 08:50 08:51 08:52 11:00 Temp 97.6 97.6 Pulse 79 77 76 67 Resp 22 B/P (MAP) 165/85 165/85 165/85 160/84 (109) Pulse Ox 98 O2 Delivery Room Air 07/02/19 07/02/19 11:30 13:30 Pulse 67 B/P (MAP) 160/84 Pulse Ox 100 O2 Delivery Nasal Cannula O2 Flow Rate 3.5 Intake and Output 07/01/19 07/01/19 07/02/19 15:00 23:00 07:00 Intake Total 300 ml 200 ml Output Total 550 ml 200 ml 300 ml Balance -250 ml -200 ml -100 ml BRENDA RAY MD Jul 02, 2019 14:14
[2019-07-02 15:00] VITALS: BP 164/88
[2019-07-02 19:00] VITALS: BP 180/91
--- NOTE | 2019-07-02 19:15 | NUR ---
Pt sitting up in chair,assessment completed vss poc explained pt denies pain at this time will assist pt back in bed call light placed in reach will resume care and continue to monitor pt.
[2019-07-02] MEDS: ATORVASTATIN CALCIUM 40 MG TABLET. PO SCH (21:17)
[2019-07-02 22:35] VITALS: BP 178/86
[2019-07-03 03:47] VITALS: BP 183/89
[2019-07-03] MEDS: cloNIDine HCL 0.1 MG TABLET PO PRN (03:59)
[2019-07-03 04:45] LABS: ALBUMIN 2.1 g/dL (3.4-5.0); CALCIUM 8.6 mg/dL (8.5-10.1); CREATININE 2.9 mg/dL (0.6-1.0); GFR 20.1; PHOSPHORUS 5.2 mg/dL (2.6-4.7); POTASSIUM 4.1 mmol/L (3.5-5.1)
[2019-07-03] MEDS: PANTOPRAZOLE 40 MG TABLET.DR. PO SCH (06:19)
[2019-07-03 07:00] VITALS: BP 191/89
[2019-07-03] MEDS: IPRATRPIUM/ALBUTEROL 0.5/2.5MG 3 ML NEBU. NEB SCH ×4 (07:13→19:56)
[2019-07-03] MEDS: BUDESONIDE 0.5 MG/2 ML NEBU. NEB SCH ×2 (07:14→19:56)
[2019-07-03] MEDS: CALCIUM ACETATE 667 MG CAPSULE PO SCH ×2 (08:11→15:32)
[2019-07-03] MEDS: MULTIVITAMIN with MINERAL TABLET. PO SCH (08:11)
[2019-07-03] MEDS: APIXABAN 5 MG TABLET. PO SCH ×2 (08:11→20:59)
[2019-07-03] MEDS: POTASSIUM CHLORIDE 20 MEQ TABLET.ER. PO SCH (08:11)
[2019-07-03] MEDS: HYDROXYCHLOROQUINE 200 MG TABLET PO SCH (08:13)
[2019-07-03] MEDS: amLODIPine BESYLATE 10 MG TABLET PO SCH (08:13)
[2019-07-03] MEDS: POLYETHYLENE GLYCOL 3350 17 GM PACKET. PO SCH (08:14)
[2019-07-03] MEDS: LABETALOL HCL 100 MG TABLET. PO SCH ×2 (08:21→20:58)
[2019-07-03] MEDS ORDERED: hydrALAZINE 20 MG/ML VIAL. IVP PRN (08:30)
[2019-07-03 08:48] LABS: HEMATOCRIT 24.1 % (36.0-47.0); HEMOGLOBIN 7.7 g/dL (12.0-15.5)
[2019-07-03] MEDS ORDERED: hydrALAZINE 10 MG TABLET PO SCH (09:00)
--- NOTE | 2019-07-03 09:29 | PDOC ---
SUBJECTIVE ROS No complaints, feeling better Per RN decreased LE edema OBJECTIVE Vital Signs Vital Signs Date Time Temp Pulse Resp B/P (MAP) Pulse Ox O2 Delivery O2 Flow Rate FiO2 07/03/19 08:21 78 175/87 07/03/19 07:14 100 Nasal Cannula 2.0 07/03/19 07:00 98.8 20 98.8 I & 0 Intake and Output 07/03/19 07:00 Intake Total 2 ml Output Total 2150 ml Balance -2148 ml Intake Oral 2 ml Output Urine Total 2150 ml # Bowel Movements 1 PHYSICAL EXAM Physical Exam General: No acute distress HEENT: On 02 by NC Neck Supple Lungs: Clear to auscultation, Non labored Heart: Regular rate, Normal S1, Normal S2, systolic murmur + Abdomen: Soft, No tenderness Extremities: LE edema improving Skin: No rash Neuro: Grossly normal Psych/Mental Status: Mental status NL, Mood NL Has Rodríguez now DIAGNOSIS/ASSESSMENT Assessment & Plan RIYA-n s/p cardiac Cath 06/07 Worsening renal function stable today -On IV lasix drip E-Lytes , 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 On IV lasix drip Possible diastolic heart failure- mild aortic stenosis and elevated pulmonary artery pressures Atrial fibrillation. Chest Pain s/p cardiac Cath 06/07, Normal Membranous Nephropathy Dx in post Bx Proteinuria at Dx was 8 gm, improved most recent Pr/Cr <200 On ARB - may have to hold due to worsening renal function SLE- Use to follow with Rheumatology (Dr Hill) ,was on Imuran Currently only on Hydroxychloroquine Not seen for long time due to the financial constraints HTN- antihypertensives BP better Renal Doppler - No Doppler evidence of greater than 60% stenosis within the renal arteries. Anemia-Follows with Dr. Baez as OP and was on Aranesp Tsat mildly low, would hold IV Fe until Infection resolves On SAUMYA, Monitor BP Dw RN COMMENT/RELEVANT DATA Meds Current Medications Medications (Trade) Dose Ordered Sig/Blaine Start Time Stop Time Status Last Admin Dose Admin Acetaminophen (Tylenol) 650 mg PRN Q4HRS PRN 06/28/19 15:15 Acetaminophen/ Hydrocodone Bitart (Lortab 5/325) 1 tab PRN Q4HRS PRN 06/29/19 07:45 06/30/19 20:58 1 TAB Albuterol Sulfate (Ventolin Neb Soln) 2.5 mg 1X ONCE 07/01/19 11:30 07/01/19 11:31 DC Albuterol/ Ipratropium (Duoneb) 3 ml RTQID 07/01/19 12:00 07/03/19 07:13 3 ML Amlodipine Besylate (Norvasc) 10 mg DAILY 06/28/19 15:00 07/03/19 08:13 10 MG Apixaban (Eliquis) 5 mg BID 07/01/19 21:00 07/03/19 08:11 5 MG Atorvastatin Calcium (Lipitor) 40 mg HS 06/28/19 21:00 07/02/19 21:17 40 MG Bisacodyl (Dulcolax Supp) 10 mg PRN DAILY PRN 06/29/19 10:30 06/30/19 15:09 10 MG Budesonide (Pulmicort) 0.5 mg RTBID 06/28/19 20:00 07/03/19 07:14 0.5 MG Calcium Acetate (Phoslo) 667 mg BIDWMEALS 06/28/19 17:00 07/03/19 08:11 667 MG Calcium Carbonate/ Glycine (Tums) 500 mg PRN AFTMEALHC PRN 06/29/19 07:45 07/02/19 08:49 500 MG Clonidine HCl (Catapres Tts-2) 1 patch WEEKLY 07/05/19 09:00 Clonidine HCl (Catapres) 0.1 mg PRN Q6HRS PRN 06/28/19 15:15 07/03/19 03:59 0.1 MG Darbepoetin Emmanuel (ARANESP for NON-DIALYSIS PTS) 60 mcg 1X ONCE 07/01/19 12:00 07/01/19 12:01 DC 07/01/19 11:11 60 MCG Docusate Sodium (Colace) 100 mg PRN BID PRN 06/28/19 15:15 07/01/19 21:21 100 MG Enoxaparin Sodium (Lovenox 80mg Syringe) 80 mg Q24H 06/28/19 22:00 07/01/19 16:08 DC 06/30/19 21:00 80 MG Enoxaparin Sodium (Lovenox Per Pharmacy Treatment Dosing) 1 each PRN DAILY PRN 06/28/19 22:00 UNV Furosemide (Lasix) 40 mg BID 07/01/19 11:00 07/02/19 12:12 DC 07/01/19 21:20 40 MG Furosemide 100 mg/ Sodium Chloride 100 ml @ 5 mls/hr CONT PRN 07/02/19 12:00 07/02/19 18:14 5 MLS/HR Guaifenesin (Robitussin Dm) 10 ml PRN Q6HRS PRN 06/29/19 07:45 06/30/19 20:57 10 ML Guaifenesin (Robitussin) 200 mg PRN Q4HRS PRN 06/28/19 15:15 07/01/19 21:19 200 MG Hydralazine HCl (Apresoline Inj) 10 mg PRN Q4HRS PRN 07/03/19 08:30 Hydralazine HCl (Apresoline) 10 mg TID 07/03/19 09:00 Hydroxychloroquine Sulfate (Plaquenil) 200 mg DAILY 06/28/19 15:00 07/03/19 08:13 200 MG Info (Anti-Coagulation Monitoring By Pharmacy) 1 each PRN DAILY PRN 07/01/19 14:00 Labetalol HCl (Trandate) 300 mg BID 06/28/19 21:00 07/03/19 08:21 300 MG Lactobacillus Rhamnosus (Culturelle) 1 cap BID 06/29/19 21:00 07/02/19 13:50 DC 07/02/19 08:50 1 CAP Linezolid/Dextrose 300 ml @ 300 mls/hr Q12HR 06/28/19 15:30 07/01/19 15:08 DC 07/01/19 08:41 300 MLS/HR Lorazepam (Ativan) 0.5 mg PRN Q4HRS PRN 06/28/19 15:15 Magnesium Hydroxide (Milk Of Magnesia) 2,400 mg PRN DAILY PRN 06/29/19 10:30 06/30/19 15:08 2,400 MG Methylprednisolone Sodium Succinate (SOLU-Medrol 40MG VIAL) 40 mg Q12HR 06/30/19 21:00 07/01/19 13:49 DC 07/01/19 08:41 40 MG Multivitamins (Thera M Plus) 1 tab DAILY 06/29/19 09:00 07/03/19 08:11 1 TAB Ondansetron HCl (Zofran) 4 mg PRN Q4HRS PRN 06/28/19 15:15 Pantoprazole Sodium (Protonix) 40 mg DAILYAC 06/29/19 07:30 07/03/19 06:19 40 MG Piperacillin Sod/ Tazobactam Sod 3.375 gm/Sodium Chloride 50 ml @ 100 mls/hr 1X ONCE 06/28/19 14:30 06/28/19 14:59 DC 06/28/19 15:21 100 MLS/HR Polyethylene Glycol (miraLAX PACKET) 17 gm 1X ONCE 06/29/19 11:00 06/29/19 11:01 DC 06/29/19 12:30 17 GM Potassium Chloride (Klor-Con) 20 meq DAILYWBKFT 06/29/19 08:00 07/03/19 08:11 20 MEQ Rivaroxaban (Xarelto) 10 mg DAILY 06/28/19 21:30 06/28/19 21:55 DC Sodium Chloride 1,000 ml @ 100 mls/hr Q10H 06/28/19 15:08 06/28/19 15:39 DC Sodium Chloride (Normal Saline Flush) 3 ml QSHIFT PRN 06/28/19 15:15 Lab Laboratory Tests Test 07/03/19 03:00 Hemoglobin 7.7 g/dL (12.0-15.5) Hematocrit 24.1 % (36.0-47.0) Mean Corpuscular Hemoglobin Concent 32 g/dL (31-37) Sodium Level 143 mmol/L (136-145) Potassium Level 4.1 mmol/L (3.5-5.1) Chloride Level 108 mmol/L (98-107) Carbon Dioxide Level 24 mmol/L (21-32) Anion Gap 11 (6-14) Blood Urea Nitrogen 79 mg/dL (7-20) Creatinine 2.9 mg/dL (0.6-1.0) Estimated GFR (Cockcroft-Gault) 20.1 Glucose Level 79 mg/dL (70-99) Calcium Level 8.6 mg/dL (8.5-10.1) Phosphorus Level 5.2 mg/dL (2.6-4.7) Albumin 2.1 g/dL (3.4-5.0) Results All relevant outside records, renal labs, imaging studies, telemetry/EKG's were reviewed. SHEILA CREWS MD Jul 03, 2019 09:29
--- NOTE | 2019-07-03 09:49 | PDOC ---
PROGRESS NOTES Chief Complaint Chief Complaint 1. Acute respiratory failure, multifactorial in etiology including acute diastolic congestive heart failure, acute exacerbation of chronic obstructive pulmonary disease? thromboembolic disease versus others. 2. Abnormal chest x-ray. 3. Acute exacerbation of chronic obstructive pulmonary disease. 4. Acute diastolic congestive heart failure. 5. Chronic kidney disease. 6. Ex-smoker. 7. Paroxysmal atrial fibrillation. 8. History of pulmonary embolism. 9. Anemia. 10. Hypertension. 11. Acute precip drop hgb - likely sec to CKD 12. NOrmocytic, chronic anemia 13. MEt enceph 14. LEg edema History of Present Illness History of Present Illness hgb stable 7,.7 - I ordered stat this AM She is now having BM LAsix gtt is DOING WONDERS IN TERMS OF HER LEG SWELLING AND she is very pleased BP high though, systolic 170s Came from pplace PLAN: No need for bT, hgb stable at 7,7 today COnt lasix gtt, lytes are holding Start hydralazine PO and prn IV Martinez cath inserted 07/12 bec of lasix gtt Lasix gtt per renal pplace on dc, could be tmr, when off gtt dw her and aide at bedside Vitals Vitals Vital Signs Date Time Temp Pulse Resp B/P (MAP) Pulse Ox O2 Delivery O2 Flow Rate FiO2 07/03/19 08:21 78 175/87 07/03/19 07:14 100 Nasal Cannula 2.0 07/03/19 07:00 98.8 20 98.8 Physical Exam Physical Exam GENERAL: Propped up in chair and alert HEENT: Pupils equally round. Oropharynx pink and moist. NECK: Supple. LUNGS: CTA HEART: S1, S2. Murmur present. ABDOMEN: Soft, nontender with bowel sounds present. EXTREMITIES: Pedal edema bilaterally. No cyanosis. SKIN: Warm to touch. No signs of rash. NEUROLOGIC: Alert, answers questions appropriately PIV General: mild distress Heart: Regular rate Lungs: Crackles Abdomen: Normal bowel sounds Extremities: No cyanosis, Other (plus 2-3 edema) Skin: No rashes, No breakdown Labs LABS Laboratory Tests Test 07/03/19 03:00 Hemoglobin 7.7 g/dL (12.0-15.5) Hematocrit 24.1 % (36.0-47.0) Mean Corpuscular Hemoglobin Concent 32 g/dL (31-37) Sodium Level 143 mmol/L (136-145) Potassium Level 4.1 mmol/L (3.5-5.1) Chloride Level 108 mmol/L (98-107) Carbon Dioxide Level 24 mmol/L (21-32) Anion Gap 11 (6-14) Blood Urea Nitrogen 79 mg/dL (7-20) Creatinine 2.9 mg/dL (0.6-1.0) Estimated GFR (Cockcroft-Gault) 20.1 Glucose Level 79 mg/dL (70-99) Calcium Level 8.6 mg/dL (8.5-10.1) Phosphorus Level 5.2 mg/dL (2.6-4.7) Albumin 2.1 g/dL (3.4-5.0) Review of Systems Review of Systems weak,. headache at times, all else 14 pt neg Assessment and Plan Assessmemt and Plan Problems Medical Problems: (1) Acute exacerbation of CHF (congestive heart failure) Status: Acute (2) Shortness of breath Status: Acute Comment Review of Relevant I have reviewed the following items gregorio (where applicable) has been applied. Labs Laboratory Tests Test 07/02/19 04:05 07/03/19 03:00 White Blood Count 6.7 x10^3/uL (4.0-11.0) Red Blood Count 2.46 x10^6/uL (3.50-5.40) Hemoglobin 7.4 g/dL (12.0-15.5) 7.7 g/dL (12.0-15.5) Hematocrit 23.1 % (36.0-47.0) 24.1 % (36.0-47.0) Mean Corpuscular Volume 94 fL (79-100) Mean Corpuscular Hemoglobin 30 pg (25-35) Mean Corpuscular Hemoglobin Concent 32 g/dL (31-37) 32 g/dL (31-37) Red Cell Distribution Width 18.3 % (11.5-14.5) Platelet Count 228 x10^3/uL (140-400) Neutrophils (%) (Auto) 63 % (31-73) Lymphocytes (%) (Auto) 27 % (24-48) Monocytes (%) (Auto) 10 % (0-9) Eosinophils (%) (Auto) 0 % (0-3) Basophils (%) (Auto) 0 % (0-3) Neutrophils # (Auto) 4.2 x10^3/uL (1.8-7.7) Lymphocytes # (Auto) 1.8 x10^3/uL (1.0-4.8) Monocytes # (Auto) 0.7 x10^3/uL (0.0-1.1) Eosinophils # (Auto) 0.0 x10^3/uL (0.0-0.7) Basophils # (Auto) 0.0 x10^3/uL (0.0-0.2) Sodium Level 145 mmol/L (136-145) 143 mmol/L (136-145) Potassium Level 4.2 mmol/L (3.5-5.1) 4.1 mmol/L (3.5-5.1) Chloride Level 109 mmol/L (98-107) 108 mmol/L (98-107) Carbon Dioxide Level 23 mmol/L (21-32) 24 mmol/L (21-32) Anion Gap 13 (6-14) 11 (6-14) Blood Urea Nitrogen 87 mg/dL (7-20) 79 mg/dL (7-20) Creatinine 2.9 mg/dL (0.6-1.0) 2.9 mg/dL (0.6-1.0) Estimated GFR (Cockcroft-Gault) 20.1 20.1 Glucose Level 91 mg/dL (70-99) 79 mg/dL (70-99) Calcium Level 8.8 mg/dL (8.5-10.1) 8.6 mg/dL (8.5-10.1) Phosphorus Level 5.2 mg/dL (2.6-4.7) Albumin 2.1 g/dL (3.4-5.0) Laboratory Tests Test 07/03/19 03:00 Hemoglobin 7.7 g/dL (12.0-15.5) Hematocrit 24.1 % (36.0-47.0) Mean Corpuscular Hemoglobin Concent 32 g/dL (31-37) Sodium Level 143 mmol/L (136-145) Potassium Level 4.1 mmol/L (3.5-5.1) Chloride Level 108 mmol/L (98-107) Carbon Dioxide Level 24 mmol/L (21-32) Anion Gap 11 (6-14) Blood Urea Nitrogen 79 mg/dL (7-20) Creatinine 2.9 mg/dL (0.6-1.0) Estimated GFR (Cockcroft-Gault) 20.1 Glucose Level 79 mg/dL (70-99) Calcium Level 8.6 mg/dL (8.5-10.1) Phosphorus Level 5.2 mg/dL (2.6-4.7) Albumin 2.1 g/dL (3.4-5.0) Microbiology 06/28/19 Urine Culture - Final, Complete 06/28/19 Urine Culture Result 1 (JANINE) - Final, Complete 06/28/19 Blood Culture - Preliminary, Resulted NO GROWTH AFTER 4 DAYS Medications Current Medications Albuterol/ Ipratropium (Duoneb) 3 ml 1X ONCE NEB Last administered on 06/28/19at 12:30; Start 06/28/19 at 12:30; Stop 06/28/19 at 12:31; Status DC Piperacillin Sod/ Tazobactam Sod 3.375 gm/Sodium Chloride 50 ml @ 100 mls/hr Q6HRS IV Last administered on 07/01/19at 11:11; Start 06/29/19 at 00:00; Stop 07/01/19 at 15:08; Status DC Piperacillin Sod/ Tazobactam Sod 3.375 gm/Sodium Chloride 50 ml @ 100 mls/hr 1X ONCE IV Last administered on 06/28/19at 15:21; Start 06/28/19 at 14:30; Stop 06/28/19 at 14:59; Status DC Albuterol Sulfate (Ventolin Neb Soln) 2.5 mg PRN Q6HRS PRN INH SHORTNESS OF BREATH Last administered on 07/02/19at 05:05; Start 06/28/19 at 15:00 Amlodipine Besylate (Norvasc) 10 mg DAILY PO Last administered on 07/03/19at 08:13; Start 06/28/19 at 15:00 Atorvastatin Calcium (Lipitor) 40 mg HS PO Last administered on 07/02/19at 21:17; Start 06/28/19 at 21:00 Calcium Acetate (Phoslo) 667 mg BIDWMEALS PO Last administered on 07/03/19at 08:11; Start 06/28/19 at 17:00 Clonidine HCl (Catapres Tts-2) 1 patch WEEKLY TD ; Start 07/05/19 at 09:00 Hydralazine HCl (Apresoline) 25 mg TID PO Last administered on 07/01/19at 08: 38; Start 06/28/19 at 15:00; Stop 07/01/19 at 15:16; Status DC Hydroxychloroquine Sulfate (Plaquenil) 200 mg DAILY PO Last administered on 07/03/19at 08:13; Start 06/28/19 at 15:00 Labetalol HCl (Trandate) 300 mg BID PO Last administered on 07/03/19at 08:21; Start 06/28/19 at 21:00 Pantoprazole Sodium (Protonix) 40 mg DAILYAC PO Last administered on 07/03/19at 06:19; Start 06/29/19 at 07:30 Rivaroxaban (Xarelto) 10 mg DAILY PO ; Start 06/28/19 at 21:30; Stop 06/28/19 at 21:55; Status DC Budesonide (Pulmicort) 0.5 mg RTBID NEB Last administered on 07/03/19at 07:14; Start 06/28/19 at 20:00 Multivitamins (Thera M Plus) 1 tab DAILY PO Last administered on 07/03/19at 08:11; Start 06/29/19 at 09:00 Potassium Chloride (Klor-Con) 20 meq DAILYWBKFT PO Last administered on 07/03/19at 08:11; Start 06/29/19 at 08:00 Albuterol/ Ipratropium (Duoneb) 3 ml RTQID NEB ; Start 06/28/19 at 16:00; Stop 06/28/19 at 15:16; Status DC Linezolid/Dextrose 300 ml @ 300 mls/hr Q12HR IV Last administered on 07/01/19 at 08:41; Start 06/28/19 at 15:30; Stop 07/01/19 at 15:08; Status DC Sodium Chloride (Normal Saline Flush) 3 ml QSHIFT PRN IV AFTER MEDS AND BLOOD DRAWS; Start 06/28/19 at 15:15 Sodium Chloride 1,000 ml @ 100 mls/hr Q10H IV ; Start 06/28/19 at 15:08; Stop 06/28/19 at 15:39; Status DC Ondansetron HCl (Zofran) 4 mg PRN Q4HRS PRN IV NAUSEA/VOMITING; Start 06/28/19 at 15:15 Acetaminophen (Tylenol) 650 mg PRN Q4HRS PRN PO TEMP OVER 100.4F OR MILD PAIN; Start 06/28/19 at 15:15 Clonidine HCl (Catapres) 0.1 mg PRN Q6HRS PRN PO SBP>160 OR DBP>90 Last administered on 07/03/19at 03:59; Start 06/28/19 at 15:15 Docusate Sodium (Colace) 100 mg PRN BID PRN PO HARD STOOLS Last administered on 07/01/19at 21:21; Start 06/28/19 at 15:15 Albuterol/ Ipratropium (Duoneb) 3 ml Q4HRS NEB Last administered on 07/01/19at 07:38; Start 06/28/19 at 16:00; Stop 07/01/19 at 11:20; Status DC Guaifenesin (Robitussin) 200 mg PRN Q4HRS PRN PO COUGH Last administered on 07/01/19at 21:19; Start 06/28/19 at 15:15 Lorazepam (Ativan) 0.5 mg PRN Q4HRS PRN PO ANXIETY / AGITATION; Start 06/28/19 at 15:15 Furosemide (Lasix) 40 mg 1X ONCE IVP Last administered on 06/28/19at 15:45; Start 06/28/19 at 16:00; Stop 06/28/19 at 16:01; Status DC Enoxaparin Sodium (Lovenox Per Pharmacy Treatment Dosing) 1 each PRN DAILY PRN MC SEE COMMENTS; Start 06/28/19 at 21:15; Status UNV Enoxaparin Sodium (Lovenox Per Pharmacy Treatment Dosing) 1 each PRN DAILY PRN MC SEE COMMENTS; Start 06/28/19 at 22:00; Stop 07/01/19 at 16:13; Status DC Enoxaparin Sodium (Lovenox 80mg Syringe) 80 mg Q24H SQ Last administered on 06/30/19at 21:00; Start 06/28/19 at 22:00; Stop 07/01/19 at 16:08; Status DC Enoxaparin Sodium (Lovenox Per Pharmacy Treatment Dosing) 1 each PRN DAILY PRN MC SEE COMMENTS; Start 06/28/19 at 22:00; Status UNV Guaifenesin (Robitussin Dm) 10 ml PRN Q6HRS PRN PO COUGH 1ST CHOICE Last administered on 06/30/19 20:57; Start 06/29/19 at 07:45 Calcium Carbonate/ Glycine (Tums) 500 mg PRN AFTMEALHC PRN PO INDIGESTION Last administered on 07/02/19 08:49; Start 06/29/19 at 07:45 Acetaminophen/ Hydrocodone Bitart (Lortab 5/325) 1 tab PRN Q4HRS PRN PO M ODERATE-SEVERE PAIN Last administered on 06/30/19 20:58; Start 06/29/19 at 07:45 Methylprednisolone Sodium Succinate (SOLU-Medrol 40MG VIAL) 40 mg Q8HRS IV Last administered on 06/30/19 06:05; Start 06/29/19 at 08:30; Stop 06/30/19 at 08:33; Status DC Furosemide (Lasix) 40 mg DAILY IVP Last administered on 07/01/19 08:40; Start 06/29/19 at 08:30; Stop 07/01/19 at 11:01; Status DC Lactobacillus Rhamnosus (Culturelle) 1 cap BID PO Last administered on 07/02/19at 08:50; Start 06/29/19 at 21:00; Stop 07/02/19 at 13:50; Status DC Polyethylene Glycol (miraLAX PACKET) 17 gm DAILY PO Last administered on 07/02/19at 08:49; Start 06/30/19 at 09:00 Polyethylene Glycol (miraLAX PACKET) 17 gm 1X ONCE PO Last administered on 06/29/19at 12:30; Start 06/29/19 at 11:00; Stop 06/29/19 at 11:01; Status DC Magnesium Hydroxide (Milk Of Magnesia) 2,400 mg 1X ONCE PO Last administered on 06/29/19at 12:29; Start 06/29/19 at 11:00; Stop 06/29/19 at 11:01; Status DC Magnesium Hydroxide (Milk Of Magnesia) 2,400 mg PRN DAILY PRN PO CONSTIPATION Last administered on 11/17/19at 15:08; Start 06/29/19 at 10:30 Bisacodyl (Dulcolax Supp) 10 mg PRN DAILY PRN OR CONSTIPATION Last administered on 06/30/19at 15:09; Start 06/29/19 at 10:30 Methylprednisolone Sodium Succinate (SOLU-Medrol 40MG VIAL) 40 mg Q12HR IV Last administered on 07/01/19at 08:41; Start 06/30/19 at 21:00; Stop 07/01/19 at 13:49; Status DC Darbepoetin Emmanuel (ARANESP for NON-DIALYSIS PTS) 60 mcg 1X ONCE SQ Last administered on 07/01/19at 11:11; Start 07/01/19 at 12:00; Stop 07/01/19 at 12:01; Status DC Furosemide (Lasix) 40 mg BID IVP Last administered on 07/01/19at 21:20; Start 07/01/19 at 11:00; Stop 07/02/19 at 12:12; Status DC Albuterol Sulfate (Ventolin Neb Soln) 2.5 mg 1X ONCE NEB ; Start 07/01/19 at 11:30; Stop 07/01/19 at 11:31; Status DC Albuterol/ Ipratropium (Duoneb) 3 ml RTQID NEB Last administered on 07/03/19at 07:13; Start 07/01/19 at 12:00 Info (Anti-Coagulation Monitoring By Pharmacy) 1 each PRN DAILY PRN MC SEE C OMMENTS; Start 07/01/19 at 14:00 Hydralazine HCl (Apresoline) 50 mg TID PO Last administered on 07/01/19at 15:36; Start 07/01/19 at 15:15; Stop 07/01/19 at 15:56; Status DC Hydralazine HCl (Apresoline) 100 mg TID PO Last administered on 07/03/19at 08 :13; Start 07/01/19 at 21:00 Apixaban (Eliquis) 5 mg BID PO Last administered on 07/03/19at 08:11; Start 07/01/19 at 21:00 Furosemide 100 mg/ Sodium Chloride 100 ml @ 5 mls/hr CONT PRN IV SEE I/O RECORD Last administered on 07/02/19at 18:14; Start 07/02/19 at 12:00 Hydralazine HCl (Apresoline Inj) 10 mg PRN Q4HRS PRN IVP ELEVATED BP, SEE COMMENTS; Start 07/03/19 at 08:30 Hydralazine HCl (Apresoline) 10 mg TID PO ; Start 07/03/19 at 09:00 Active Scripts Active Lasix (Furosemide) 40 Mg Tablet 1 Tab PO DAILY 5 Days Guaifenesin 100 Mg/5 Ml Liquid 200 Mg PO PRN Q4HRS PRN 7 Days Ativan (Lorazepam) 0.5 Mg Tablet 0.5 Mg PO PRN Q4HRS PRN Hydrocodone-Apap 5-325 (Hydrocodone Bit/Acetaminophen) 1 Tab Tablet 1 Tab PO PRN Q4HRS PRN Amlodipine Besylate 10 Mg Tablet 10 Mg PO DAILY 30 Days Labetalol Hcl 200 Mg Tablet 300 Mg PO BID 30 Days Hydralazine Hcl 25 Mg Tablet 25 Mg PO TID 30 Days Clonidine Tts-2 (Clonidine) 1 Each Patch.tdwk 1 Patch TD WEEKLY 30 Days Reported Protonix (Pantoprazole Sodium) 40 Mg Tablet.dr 40 Mg PO DAILYAC Hydroxychloroquine Sulfate 200 Mg Tablet 200 Mg PO DAILY Multivitamins (Multivitamin) 1 Each Tablet 1 Tab PO DAILY Symbicort 160-4.5 Mcg Inhaler (Budesonide/Formoterol Fumarate) 10.2 Gm Hfa.aer.ad 1 Puff IH BID Spiriva (Tiotropium [place]) 18 Mcg Cap.w.dev 2 Inh IH DAILY Proair Hfa Inhaler (Albuterol Sulfate) 8.5 Gm Hfa.aer.ad 1 Puff INH PRN Q6HRS PRN Xarelto (Rivaroxaban) 10 Mg Tablet 10 Mg PO DAILY Atorvastatin Calcium 40 Mg Tablet 40 Mg PO HS Phoslo (Calcium Acetate) 667 Mg Capsule 1 Cap PO BIDWMEALS K-Tab ER (Potassium Chloride) 20 Meq Tablet.er 20 Meq PO DAILY Vitals/I & O Vital Sign - Last 24 Hours 07/02/19 07/02/19 07/02/19 07/02/19 11:00 11:30 13:30 15:00 Temp 97.6 97.6 97.6 97.6 Pulse 67 67 67 Resp 22 22 B/P (MAP) 160/84 (109) 160/84 164/88 (113) Pulse Ox 98 100 94 O2 Delivery Room Air Nasal Cannula Room Air O2 Flow Rate 3.5 07/02/19 07/02/19 07/02/19 07/02/19 16:40 19:00 19:15 19:29 Temp 98.0 98.0 Pulse 76 Resp 18 B/P (MAP) 180/91 (120) Pulse Ox 98 99 98 O2 Delivery Nasal Cannula Nasal Cannula Nasal Cannula Nasal Cannula O2 Flow Rate 2.0 2.0 2.0 2.0 07/02/19 07/02/19 07/02/19 07/03/19 21:18 21:18 22:35 03:47 Temp 99.0 98.5 99.0 98.5 Pulse 76 76 77 83 Resp 18 18 B/P (MAP) 180/91 180/91 178/86 (116) 183/89 (120) Pulse Ox 100 98 O2 Delivery Nasal Cannula Nasal Cannula O2 Flow Rate 2.0 07/03/19 07/03/19 07/03/19 07/03/19 03:59 07:00 07:14 08:13 Temp 98.8 98.8 Pulse 83 82 78 Resp 20 B/P (MAP) 183/89 191/89 (123) 175/87 Pulse Ox 100 100 O2 Delivery Nasal Cannula Nasal Cannula O2 Flow Rate 2.0 2.0 07/03/19 07/03/19 08:13 08:21 Pulse 78 78 B/P (MAP) 175/87 175/87 Intake and Output 07/02/19 07/02/19 07/03/19 15:00 23:00 07:00 Intake Total 0 ml 2 ml Output Total 500 ml 1650 ml Balance -500 ml -1648 ml SHARA SHEEHAN MD Jul 03, 2019 09:49
--- NOTE | 2019-07-03 10:01 | PDOC ---
PULMONARY PROGRESS NOTES Subjective NOT MORE SOA NO CHEST PAIN Vitals Vital Signs Date Time Temp Pulse Resp B/P (MAP) Pulse Ox O2 Delivery O2 Flow Rate FiO2 07/03/19 08:21 78 175/87 07/03/19 07:14 100 Nasal Cannula 2.0 07/03/19 07:00 98.8 20 98.8 ROS: No Nausea, No Chest Pain, No Abdominal Pain, No Increase Cough General: Alert HEENT: Other Lungs: Crackles Cardiovascular: S1, S2 Abdomen: Soft, Non-tender Neuro Exam: Alert, Oriented Extremities: Other (edema) Skin: Warm Labs Laboratory Tests Test 07/02/19 04:05 07/03/19 03:00 White Blood Count 6.7 x10^3/uL (4.0-11.0) Red Blood Count 2.46 x10^6/uL (3.50-5.40) Hemoglobin 7.4 g/dL (12.0-15.5) 7.7 g/dL (12.0-15.5) Hematocrit 23.1 % (36.0-47.0) 24.1 % (36.0-47.0) Mean Corpuscular Volume 94 fL (79-100) Mean Corpuscular Hemoglobin 30 pg (25-35) Mean Corpuscular Hemoglobin Concent 32 g/dL (31-37) 32 g/dL (31-37) Red Cell Distribution Width 18.3 % (11.5-14.5) Platelet Count 228 x10^3/uL (140-400) Neutrophils (%) (Auto) 63 % (31-73) Lymphocytes (%) (Auto) 27 % (24-48) Monocytes (%) (Auto) 10 % (0-9) Eosinophils (%) (Auto) 0 % (0-3) Basophils (%) (Auto) 0 % (0-3) Neutrophils # (Auto) 4.2 x10^3/uL (1.8-7.7) Lymphocytes # (Auto) 1.8 x10^3/uL (1.0-4.8) Monocytes # (Auto) 0.7 x10^3/uL (0.0-1.1) Eosinophils # (Auto) 0.0 x10^3/uL (0.0-0.7) Basophils # (Auto) 0.0 x10^3/uL (0.0-0.2) Sodium Level 145 mmol/L (136-145) 143 mmol/L (136-145) Potassium Level 4.2 mmol/L (3.5-5.1) 4.1 mmol/L (3.5-5.1) Chloride Level 109 mmol/L (98-107) 108 mmol/L (98-107) Carbon Dioxide Level 23 mmol/L (21-32) 24 mmol/L (21-32) Anion Gap 13 (6-14) 11 (6-14) Blood Urea Nitrogen 87 mg/dL (7-20) 79 mg/dL (7-20) Creatinine 2.9 mg/dL (0.6-1.0) 2.9 mg/dL (0.6-1.0) Estimated GFR (Cockcroft-Gault) 20.1 20.1 Glucose Level 91 mg/dL (70-99) 79 mg/dL (70-99) Calcium Level 8.8 mg/dL (8.5-10.1) 8.6 mg/dL (8.5-10.1) Phosphorus Level 5.2 mg/dL (2.6-4.7) Albumin 2.1 g/dL (3.4-5.0) Laboratory Tests Test 07/03/19 03:00 Hemoglobin 7.7 g/dL (12.0-15.5) Hematocrit 24.1 % (36.0-47.0) Mean Corpuscular Hemoglobin Concent 32 g/dL (31-37) Sodium Level 143 mmol/L (136-145) Potassium Level 4.1 mmol/L (3.5-5.1) Chloride Level 108 mmol/L (98-107) Carbon Dioxide Level 24 mmol/L (21-32) Anion Gap 11 (6-14) Blood Urea Nitrogen 79 mg/dL (7-20) Creatinine 2.9 mg/dL (0.6-1.0) Estimated GFR (Cockcroft-Gault) 20.1 Glucose Level 79 mg/dL (70-99) Calcium Level 8.6 mg/dL (8.5-10.1) Phosphorus Level 5.2 mg/dL (2.6-4.7) Albumin 2.1 g/dL (3.4-5.0) Medications Active Scripts Medications Dose Route/Sig Max Daily Dose Days Date Category Amlodipine Besylate 10 Mg Tablet 10 Mg PO DAILY 30 06/13/19 Rx Labetalol Hcl 200 Mg Tablet 300 Mg PO BID 30 06/13/19 Rx Hydralazine Hcl 25 Mg Tablet 25 Mg PO TID 30 06/13/19 Rx Clonidine Tts-2 (Clonidine) 1 Each Patch.tdwk 1 Patch TD WEEKLY 30 06/13/19 Rx Protonix (Pantoprazole Sodium) 40 Mg Tablet.dr 40 Mg PO DAILYAC 06/05/19 Reported Hydroxychloroquine Sulfate 200 Mg Tablet 200 Mg PO DAILY 06/05/19 Reported Multivitamins (Multivitamin) 1 Each Tablet 1 Tab PO DAILY 06/05/19 Reported Symbicort 160-4.5 Mcg Inhaler (Budesonide/Formoterol Fumarate) 10.2 Gm Hfa.aer.ad 1 Puff IH BID 12/13/18 Reported Spiriva (Tiotropium [place]) 18 Mcg Cap.w.dev 2 Inh IH DAILY 12/13/18 Reported Proair Hfa Inhaler (Albuterol Sulfate) 8.5 Gm Hfa.aer.ad 1 Puff INH PRN Q6HRS PRN 12/13/18 Reported Xarelto (Rivaroxaban) 10 Mg Tablet 10 Mg PO DAILY 12/13/18 Reported Atorvastatin Calcium 40 Mg Tablet 40 Mg PO HS 12/13/18 Reported Phoslo (Calcium Acetate) 667 Mg Capsule 1 Cap PO BIDWMEALS 06/11/14 Reported K-Tab ER (Potassium Chloride) 20 Meq Tablet.er 20 Meq PO DAILY 05/23/14 Reported Impression . IMPRESSION: 1. Acute respiratory failure SUSPECT MOSTLY CHF 2. Abnormal chest x-ray. 3. Acute exacerbation of chronic obstructive pulmonary disease. 4. Acute diastolic congestive heart failure. 5. Chronic kidney disease. 6. Ex-smoker. 7. Paroxysmal atrial fibrillation. 8. History of pulmonary embolism. 9. Anemia. 10. Hypertension. 11. LOWE EXT VENOUS DOPPLER NEGATIVE Plan . CXR HAS IMPROVED WILL DEFER TO CARD ON POSSIBLE DC DOUBT PE CLINICAL SUSPICION IS LOW TAPER PRED , DEFER ANTIBX USE TO ID OK TO TRANSFER SOON OR DC SOON ON ANTICOUGULATION FOR AF ROSE MARIE BANG MD Jul 03, 2019 10:00
--- NOTE | 2019-07-03 10:46 | NUR ---
SS following up with discharge planning. Per pt RN, pt is currently on IV Lasix and BP and Creatinine is high. Pt came from [facility] jail unit. SS was informed that pt is low on jail days with her insurance. SS will continue to follow for discharge planning.
[2019-07-03 11:00] VITALS: BP 157/84
--- NOTE | 2019-07-03 11:14 | PDOC ---
CURTIS DOE [facility]HR[employer] PICKER 07/03/19 1114: CARDIO Progress Notes Date and Time Date of Service 07/03/2019 Time of Evaluation 1050 Subjective Subjective: No Chest Pain, No shortness of breath, No Palpitations, Other (SOA with exertion) Vitals Vitals Vital Signs Date Time Temp Pulse Resp B/P (MAP) Pulse Ox O2 Delivery O2 Flow Rate FiO2 07/03/19 08:21 78 175/87 07/03/19 07:14 100 Nasal Cannula 2.0 07/03/19 07:00 98.8 20 98.8 Weight Weight [ ] Input and Output Intake and Output Intake and Output 07/03/19 07:00 Intake Total 2 ml Output Total 2150 ml Balance -2148 ml Intake Oral 2 ml Output Urine Total 2150 ml # Bowel Movements 1 Laboratory Labs Laboratory Tests Test 07/03/19 03:00 Hemoglobin 7.7 g/dL (12.0-15.5) Hematocrit 24.1 % (36.0-47.0) Mean Corpuscular Hemoglobin Concent 32 g/dL (31-37) Sodium Level 143 mmol/L (136-145) Potassium Level 4.1 mmol/L (3.5-5.1) Chloride Level 108 mmol/L (98-107) Carbon Dioxide Level 24 mmol/L (21-32) Anion Gap 11 (6-14) Blood Urea Nitrogen 79 mg/dL (7-20) Creatinine 2.9 mg/dL (0.6-1.0) Estimated GFR (Cockcroft-Gault) 20.1 Glucose Level 79 mg/dL (70-99) Calcium Level 8.6 mg/dL (8.5-10.1) Phosphorus Level 5.2 mg/dL (2.6-4.7) Albumin 2.1 g/dL (3.4-5.0) Microbiology Micro Microbiology 06/28/19 Urine Culture - Final, Complete 06/28/19 Urine Culture Result 1 (JANINE) - Final, Complete 06/28/19 Blood Culture - Preliminary, Resulted NO GROWTH AFTER 4 DAYS Physical Exam HEENT: Neck Supple W Full Motion Chest: Symmetric LUNGS: Other (basilar crackles) Heart: S1S2, RRR (SR), murmurs (3/6 systolic murmur to FRANTZ border) Abdomen: Soft N/T Extremities: Other (2-3+ bilateral LE edema ) Neurology: alert, oriented, follow commands Assessment Assessment 1. Acute respiratory failure with acute CHF, AECOPD, and anemia 2. Acute on chronic CHF; improving 3. PAFIB: presently SR. 4. Malignant HTN: remains labile 5. Hyperlipidemia; statin therapy 6. , mild 7. RIYA on CKD: Cr unchanged, remains uremic 8. COPD/moderate pulmonary HTN: stable 9. Anemia, chronic: Hgb 7.7 10. Hx of SLE and membranous nephropathy Recommendations 1. Lasix drip per nephrology 2. Continue with current BP regimen. No ACEi/ARB at this time. May add imdur and/or titrate up catapres to TTS3 pending BP trend. 3. Continue eliquis for stroke prevention 4. Supportive care. BRENDA RAY MD 07/04/19 0508: CARDIO Progress Notes Assessment Assessment Patient seen and examined 07/03/19. Agree with [facility]'s assessment and plan. Acute on chronic diastolic heart failure improving with Lasix drip initiated by nephrology team PAF maintaining sinus rhythm. Continue eliquis for stroke prophylaxis. CURTIS DOE APRN Jul 03, 2019 11:14 BRENDA RAY MD Jul 04, 2019 05:08
[2019-07-03 15:00] VITALS: BP 155/83
[2019-07-03 19:29] VITALS: BP 174/86
[2019-07-03] MEDS: FUROSEMIDE INJ 100 MG in IV NORMAL SALINE 100ML 100 ML IV PRN (19:53)
--- NOTE | 2019-07-03 20:25 | NUR ---
Pt in bed without c/o pain assessment completed vss poc explained will resume care and continue to monitor pt. Call light in reach bed alarm in place.
[2019-07-03] MEDS: ATORVASTATIN CALCIUM 40 MG TABLET. PO SCH (20:58)
[2019-07-03 22:36] VITALS: BP 172/90
[2019-07-04] VITALS (7 sets, daily range): BP systolic 127–190; BP diastolic 66–95
[2019-07-04 04:27] LABS: ALBUMIN 2.1 g/dL (3.4-5.0); CALCIUM 8.4 mg/dL (8.5-10.1); CREATININE 2.7 mg/dL (0.6-1.0); GFR 21.8; PHOSPHORUS 4.7 mg/dL (2.6-4.7); POTASSIUM 4.2 mmol/L (3.5-5.1)
[2019-07-04] MEDS: PANTOPRAZOLE 40 MG TABLET.DR. PO SCH (06:01)
[2019-07-04] MEDS: BUDESONIDE 0.5 MG/2 ML NEBU. NEB SCH ×2 (07:08→19:52)
[2019-07-04] MEDS: IPRATRPIUM/ALBUTEROL 0.5/2.5MG 3 ML NEBU. NEB SCH ×4 (07:08→19:52)
[2019-07-04] MEDS: amLODIPine BESYLATE 10 MG TABLET PO SCH (07:30)
[2019-07-04] MEDS: LABETALOL HCL 100 MG TABLET. PO SCH ×2 (07:31→21:09)
--- NOTE | 2019-07-04 08:25 | PDOC ---
PULMONARY PROGRESS NOTES Subjective NOT MORE SOA NO CHEST PAIN Vitals Vital Signs Date Time Temp Pulse Resp B/P (MAP) Pulse Ox O2 Delivery O2 Flow Rate FiO2 07/04/19 07:31 87 190/92 07/04/19 07:09 98 Nasal Cannula 2.0 07/04/19 07:00 98.3 18 98.3 ROS: No Nausea, No Chest Pain, No Abdominal Pain, No Increase Cough General: Alert HEENT: Other Lungs: Crackles Cardiovascular: S1, S2 Abdomen: Soft, Non-tender Neuro Exam: Alert, Oriented Extremities: Other (edema) Skin: Warm Labs Laboratory Tests Test 07/03/19 03:00 07/04/19 02:50 Hemoglobin 7.7 g/dL (12.0-15.5) Hematocrit 24.1 % (36.0-47.0) Mean Corpuscular Hemoglobin Concent 32 g/dL (31-37) Sodium Level 143 mmol/L (136-145) 143 mmol/L (136-145) Potassium Level 4.1 mmol/L (3.5-5.1) 4.2 mmol/L (3.5-5.1) Chloride Level 108 mmol/L (98-107) 108 mmol/L (98-107) Carbon Dioxide Level 24 mmol/L (21-32) 27 mmol/L (21-32) Anion Gap 11 (6-14) 8 (6-14) Blood Urea Nitrogen 79 mg/dL (7-20) 79 mg/dL (7-20) Creatinine 2.9 mg/dL (0.6-1.0) 2.7 mg/dL (0.6-1.0) Estimated GFR (Cockcroft-Gault) 20.1 21.8 Glucose Level 79 mg/dL (70-99) 97 mg/dL (70-99) Calcium Level 8.6 mg/dL (8.5-10.1) 8.4 mg/dL (8.5-10.1) Phosphorus Level 5.2 mg/dL (2.6-4.7) 4.7 mg/dL (2.6-4.7) Albumin 2.1 g/dL (3.4-5.0) 2.1 g/dL (3.4-5.0) Laboratory Tests Test 07/04/19 02:50 Sodium Level 143 mmol/L (136-145) Potassium Level 4.2 mmol/L (3.5-5.1) Chloride Level 108 mmol/L (98-107) Carbon Dioxide Level 27 mmol/L (21-32) Anion Gap 8 (6-14) Blood Urea Nitrogen 79 mg/dL (7-20) Creatinine 2.7 mg/dL (0.6-1.0) Estimated GFR (Cockcroft-Gault) 21.8 Glucose Level 97 mg/dL (70-99) Calcium Level 8.4 mg/dL (8.5-10.1) Phosphorus Level 4.7 mg/dL (2.6-4.7) Albumin 2.1 g/dL (3.4-5.0) Medications Active Scripts Medications Dose Route/Sig Max Daily Dose Days Date Category Amlodipine Besylate 10 Mg Tablet 10 Mg PO DAILY 30 06/13/19 Rx Labetalol Hcl 200 Mg Tablet 300 Mg PO BID 30 06/13/19 Rx Hydralazine Hcl 25 Mg Tablet 25 Mg PO TID 06/13/19 Rx Clonidine Tts-2 (Clonidine) 1 Each Patch.tdwk 1 Patch TD WEEKLY 06/13/19 Rx Protonix (Pantoprazole Sodium) 40 Mg Tablet.dr 40 Mg PO DAILYAC 06/05/19 Reported Hydroxychloroquine Sulfate 200 Mg Tablet 200 Mg PO DAILY 06/05/19 Reported Multivitamins (Multivitamin) 1 Each Tablet 1 Tab PO DAILY 06/05/19 Reported Symbicort 160-4.5 Mcg Inhaler (Budesonide/Formoterol Fumarate) 10.2 Gm Hfa.aer.ad 1 Puff IH BID 12/13/18 Reported Spiriva (Tiotropium [place]) 18 Mcg Cap.w.dev 2 Inh IH DAILY 12/13/18 Reported Proair Hfa Inhaler (Albuterol Sulfate) 8.5 Gm Hfa.aer.ad 1 Puff INH PRN Q6HRS PRN 12/13/18 Reported Xarelto (Rivaroxaban) 10 Mg Tablet 10 Mg PO DAILY 12/13/18 Reported Atorvastatin Calcium 40 Mg Tablet 40 Mg PO HS 12/13/18 Reported Phoslo (Calcium Acetate) 667 Mg Capsule 1 Cap PO BIDWMEALS 06/11/14 Reported K-Tab ER (Potassium Chloride) 20 Meq Tablet.er 20 Meq PO DAILY 05/23/14 Reported Impression . IMPRESSION: 1. Acute respiratory failure SUSPECT MOSTLY CHF 2. Abnormal chest x-ray. 3. Acute exacerbation of chronic obstructive pulmonary disease. 4. Acute diastolic congestive heart failure. 5. Chronic kidney disease. 6. Ex-smoker. 7. Paroxysmal atrial fibrillation. 8. History of pulmonary embolism. 9. Anemia. 10. Hypertension. 11. LOWE EXT VENOUS DOPPLER NEGATIVE Plan . ON LASIX DRIP PER NEPHRO DOUBT PE CLINICAL SUSPICION IS LOW TAPER PRED , DEFER ANTIBX USE TO ID ON ANTICOUGULATION FOR AF ROSE MARIE BANG MD Jul 04, 2019 08:25
[2019-07-04] MEDS: POLYETHYLENE GLYCOL 3350 17 GM PACKET. PO SCH (08:46)
[2019-07-04] MEDS: HYDROXYCHLOROQUINE 200 MG TABLET PO SCH (08:47)
[2019-07-04] MEDS: POTASSIUM CHLORIDE 20 MEQ TABLET.ER. PO SCH (08:48)
[2019-07-04] MEDS: CALCIUM ACETATE 667 MG CAPSULE PO SCH ×2 (08:48→17:48)
[2019-07-04] MEDS: APIXABAN 5 MG TABLET. PO SCH ×2 (08:48→21:09)
[2019-07-04] MEDS: MULTIVITAMIN with MINERAL TABLET. PO SCH (08:48)
--- NOTE | 2019-07-04 09:22 | PDOC ---
SUBJECTIVE ROS No complaints,wt down, LE edema + OBJECTIVE Vital Signs Vital Signs Date Time Temp Pulse Resp B/P (MAP) Pulse Ox O2 Delivery O2 Flow Rate FiO2 07/04/19 08:49 90 127/66 07/04/19 07:09 98 Nasal Cannula 2.0 07/04/19 07:00 98.3 18 98.3 I & 0 Intake and Output 07/04/19 07:00 Intake Total 930 ml Output Total 3250 ml Balance -2320 ml Intake Oral 930 ml Output Urine Total 3250 ml # Bowel Movements 2 PHYSICAL EXAM Physical Exam General: No acute distress HEENT: On 02 by ANDREA Neck Supple Lungs: Clear to auscultation, Non labored Heart: Regular rate, Normal S1, Normal S2, systolic murmur + Abdomen: Soft, No tenderness Extremities: LE edema 3+ Skin: No rash Neuro: Grossly normal Psych/Mental Status: Mental status NL, Mood NL Has Rodríguez now DIAGNOSIS/ASSESSMENT Assessment & Plan RIYA-n s/p cardiac Cath 06/07 renal function stable -On IV lasix drip E-Lytes , acid base no emergent indication for car framer , supportive care, Monitor, LE edema- Significant , not her baseline,on IV lasix drip- started 07/02 Negative venous Doppler of bilateral lower extremity Wt down,daily accurate standing weight, strict I/O CKD stage 3-Follows with our office, most recent appt with [facility] SERVICES ANALYST in Apr Was admitted with Oct to [facility] , RIYA - ALIZA - renal function diidn't return to baseline Dced to PP Hypernatremia- resolved Respiratory distress- probable diastolic heart failure, possible pneumonia and an intermediate probability VQ scan for PE. On IV lasix drip Possible diastolic heart failure- mild aortic stenosis and elevated pulmonary artery pressures Atrial fibrillation. Chest Pain s/p cardiac Cath 06/07, Normal Membranous Nephropathy Dx in post Bx Proteinuria at Dx was 8 gm, improved most recent Pr/Cr <200 holding due to worsening renal function SLE- Use to follow with Rheumatology (Dr Hill) ,was on Imuran Currently only on Hydroxychloroquine Not seen for long time due to the financial constraints HTN- antihypertensives BP better Renal Doppler - No Doppler evidence of greater than 60% stenosis within the renal arteries. Anemia-Follows with Dr. Baez as OP and was on Aranesp Tsat mildly low, would hold IV Fe until Infection resolves On SAUMYA, Monitor BP Dw RN COMMENT/RELEVANT DATA Meds Current Medications Medications (Trade) Dose Ordered Sig/Blaine Start Time Stop Time Status Last Admin Dose Admin Acetaminophen (Tylenol) 650 mg PRN Q4HRS PRN 06/28/19 15:15 Acetaminophen/ Hydrocodone Bitart (Lortab 5/325) 1 tab PRN Q4HRS PRN 06/29/19 07:45 06/30/19 20:58 1 TAB Albuterol Sulfate (Ventolin Neb Soln) 2.5 mg 1X ONCE 07/01/19 11:30 07/01/19 11:31 DC Albuterol/ Ipratropium (Duoneb) 3 ml RTQID 07/01/19 12:00 07/04/19 07:08 3 ML Amlodipine Besylate (Norvasc) 10 mg DAILY 06/28/19 15:00 07/04/19 07:30 10 MG Apixaban (Eliquis) 5 mg BID 07/01/19 21:00 07/04/19 08:48 5 MG Atorvastatin Calcium (Lipitor) 40 mg HS 06/28/19 21:00 07/03/19 20:58 40 MG Bisacodyl (Dulcolax Supp) 10 mg PRN DAILY PRN 06/29/19 10:30 06/30/19 15:09 10 MG Budesonide (Pulmicort) 0.5 mg RTBID 06/28/19 20:00 07/04/19 07:08 0.5 MG Calcium Acetate (Phoslo) 667 mg BIDWMEALS 06/28/19 17:00 07/04/19 08:48 667 MG Calcium Carbonate/ Glycine (Tums) 500 mg PRN AFTMEALHC PRN 06/29/19 07:45 07/02/19 08:49 500 MG Clonidine HCl (Catapres Tts-2) 1 patch WEEKLY 07/05/19 09:00 Clonidine HCl (Catapres) 0.1 mg PRN Q6HRS PRN 06/28/19 15:15 07/03/19 03:59 0.1 MG Darbepoetin Emmanuel (ARANESP for NON-DIALYSIS PTS) 60 mcg 1X ONCE 07/01/19 12:00 07/01/19 12:01 DC 07/01/19 11:11 60 MCG Docusate Sodium (Colace) 100 mg PRN BID PRN 06/28/19 15:15 07/01/19 21:21 100 MG Enoxaparin Sodium (Lovenox 80mg Syringe) 80 mg Q24H 06/28/19 22:00 07/01/19 16:08 DC 06/30/19 21:00 80 MG Enoxaparin Sodium (Lovenox Per Pharmacy Treatment Dosing) 1 each PRN DAILY PRN 06/28/19 22:00 UNV Furosemide (Lasix) 40 mg BID 07/01/19 11:00 07/02/19 12:12 DC 07/01/19 21:20 40 MG Furosemide 100 mg/ Sodium Chloride 100 ml @ 5 mls/hr CONT PRN 07/02/19 12:00 07/03/19 19:53 5 MLS/HR Guaifenesin (Robitussin Dm) 10 ml PRN Q6HRS PRN 06/29/19 07:45 06/30/19 20:57 10 ML Guaifenesin (Robitussin) 200 mg PRN Q4HRS PRN 06/28/19 15:15 07/01/19 21:19 200 MG Hydralazine HCl (Apresoline Inj) 10 mg PRN Q4HRS PRN 07/03/19 08:30 07/04/19 07:23 10 MG Hydralazine HCl (Apresoline) 10 mg TID 07/03/19 09:00 Cancel Hydroxychloroquine Sulfate (Plaquenil) 200 mg DAILY 06/28/19 15:00 07/04/19 08:47 200 MG Info (Anti-Coagulation Monitoring By Pharmacy) 1 each PRN DAILY PRN 07/01/19 14:00 Labetalol HCl (Trandate) 300 mg BID 06/28/19 21:00 07/04/19 07:31 300 MG Lactobacillus Rhamnosus (Culturelle) 1 cap BID 06/29/19 21:00 07/02/19 13:50 DC 07/02/19 08:50 1 CAP Linezolid/Dextrose 300 ml @ 300 mls/hr Q12HR 06/28/19 15:30 07/01/19 15:08 DC 07/01/19 08:41 300 MLS/HR Lorazepam (Ativan) 0.5 mg PRN Q4HRS PRN 06/28/19 15:15 Magnesium Hydroxide (Milk Of Magnesia) 2,400 mg PRN DAILY PRN 06/29/19 10:30 06/30/19 15:08 2,400 MG Methylprednisolone Sodium Succinate (SOLU-Medrol 40MG VIAL) 40 mg Q12HR 06/30/19 21:00 07/01/19 13:49 DC 07/01/19 08:41 40 MG Multivitamins (Thera M Plus) 1 tab DAILY 06/29/19 09:00 07/04/19 08:48 1 TAB Ondansetron HCl (Zofran) 4 mg PRN Q4HRS PRN 06/28/19 15:15 Pantoprazole Sodium (Protonix) 40 mg DAILYAC 06/29/19 07:30 07/04/19 06:01 40 MG Piperacillin Sod/ Tazobactam Sod 3.375 gm/Sodium Chloride 50 ml @ 100 mls/hr 1X ONCE 06/28/19 14:30 06/28/19 14:59 DC 06/28/19 15:21 100 MLS/HR Polyethylene Glycol (miraLAX PACKET) 17 gm 1X ONCE 06/29/19 11:00 06/29/19 11:01 DC 06/29/19 12:30 17 GM Potassium Chloride (Klor-Con) 20 meq [id number] 06/29/19 08:00 07/04/19 08:48 20 MEQ Rivaroxaban (Xarelto) 10 mg DAILY 06/28/19 21:30 06/28/19 21:55 DC Sodium Chloride 1,000 ml @ 100 mls/hr Q10H 06/28/19 15:08 06/28/19 15:39 DC Sodium Chloride (Normal Saline Flush) 3 ml QSHIFT PRN 06/28/19 15:15 Lab Laboratory Tests Test 07/04/19 02:50 Sodium Level 143 mmol/L (136-145) Potassium Level 4.2 mmol/L (3.5-5.1) Chloride Level 108 mmol/L (98-107) Carbon Dioxide Level 27 mmol/L (21-32) Anion Gap 8 (6-14) Blood Urea Nitrogen 79 mg/dL (7-20) Creatinine 2.7 mg/dL (0.6-1.0) Estimated GFR (Cockcroft-Gault) 21.8 Glucose Level 97 mg/dL (70-99) Calcium Level 8.4 mg/dL (8.5-10.1) Phosphorus Level 4.7 mg/dL (2.6-4.7) Albumin 2.1 g/dL (3.4-5.0) Results All relevant outside records, renal labs, imaging studies, telemetry/EKG's were reviewed. SHEILA CREWS MD Jul 04, 2019 09:22
--- NOTE | 2019-07-04 11:34 | PDOC ---
PROGRESS NOTES Chief Complaint Chief Complaint 1. Acute respiratory failure, multifactorial in etiology including acute diastolic congestive heart failure, acute exacerbation of chronic obstructive pulmonary disease? thromboembolic disease versus others. 2. Abnormal chest x-ray. 3. Acute exacerbation of chronic obstructive pulmonary disease. 4. Acute diastolic congestive heart failure. 5. Chronic kidney disease. 6. Ex-smoker. 7. Paroxysmal atrial fibrillation. 8. History of pulmonary embolism. 9. Anemia. 10. Hypertension. 11. Acute precip drop hgb - likely sec to CKD 12. NOrmocytic, chronic anemia 13. MEt enceph 14. LEg edema History of Present Illness History of Present Illness hgb stable 7,.7 - positive BM NO inc in SOA Still some leg edema, but way better [place] lasix gtt per nephro Came from pplace BP high side PLAN: No need for bT, hgb stable at 7,7 COnt lasix gtt per renAl, lytes are holding on hydralazine 100 TID PO [place] cath inserted 07/12 bec of lasix gtt pplace on dc, only has limited SNU days left per SW - i told this to pt dw her and aide at bedside Vitals Vitals Vital Signs Date Time Temp Pulse Resp B/P (MAP) Pulse Ox O2 Delivery O2 Flow Rate FiO2 07/04/19 11:00 100 Nasal Cannula 2.0 07/04/19 09:32 86 127/66 (86) 07/04/19 07:00 98.3 18 98.3 Physical Exam Physical Exam GENERAL: Propped up in chair and alert HEENT: Pupils equally round. Oropharynx pink and moist. NECK: Supple. LUNGS: CTA HEART: S1, S2. Murmur present. ABDOMEN: Soft, nontender with bowel sounds present. EXTREMITIES: Pedal edema bilaterally. No cyanosis. SKIN: Warm to touch. No signs of rash. NEUROLOGIC: Alert, answers questions appropriately PIV General: mild distress Heart: Regular rate Lungs: Crackles Abdomen: Normal bowel sounds Extremities: No cyanosis, Other (plus 2-3 edema) Skin: No rashes, No breakdown Labs LABS Laboratory Tests Test 07/04/19 02:50 Sodium Level 143 mmol/L (136-145) Potassium Level 4.2 mmol/L (3.5-5.1) Chloride Level 108 mmol/L (98-107) Carbon Dioxide Level 27 mmol/L (21-32) Anion Gap 8 (6-14) Blood Urea Nitrogen 79 mg/dL (7-20) Creatinine 2.7 mg/dL (0.6-1.0) Estimated GFR (Cockcroft-Gault) 21.8 Glucose Level 97 mg/dL (70-99) Calcium Level 8.4 mg/dL (8.5-10.1) Phosphorus Level 4.7 mg/dL (2.6-4.7) Albumin 2.1 g/dL (3.4-5.0) Review of Systems Review of Systems no complaints , just the leg edema, and weak on ambulating far Assessment and Plan Assessmemt and Plan Problems Medical Problems: (1) Acute exacerbation of CHF (congestive heart failure) Status: Acute (2) Shortness of breath Status: Acute Comment Review of Relevant I have reviewed the following items gregorio (where applicable) has been applied. Labs Laboratory Tests Test 07/03/19 03:00 07/04/19 02:50 Hemoglobin 7.7 g/dL (12.0-15.5) Hematocrit 24.1 % (36.0-47.0) Mean Corpuscular Hemoglobin Concent 32 g/dL (31-37) Sodium Level 143 mmol/L (136-145) 143 mmol/L (136-145) Potassium Level 4.1 mmol/L (3.5-5.1) 4.2 mmol/L (3.5-5.1) Chloride Level 108 mmol/L (98-107) 108 mmol/L (98-107) Carbon Dioxide Level 24 mmol/L (21-32) 27 mmol/L (21-32) Anion Gap 11 (6-14) 8 (6-14) Blood Urea Nitrogen 79 mg/dL (7-20) 79 mg/dL (7-20) Creatinine 2.9 mg/dL (0.6-1.0) 2.7 mg/dL (0.6-1.0) Estimated GFR (Cockcroft-Gault) 20.1 21.8 Glucose Level 79 mg/dL (70-99) 97 mg/dL (70-99) Calcium Level 8.6 mg/dL (8.5-10.1) 8.4 mg/dL (8.5-10.1) Phosphorus Level 5.2 mg/dL (2.6-4.7) 4.7 mg/dL (2.6-4.7) Albumin 2.1 g/dL (3.4-5.0) 2.1 g/dL (3.4-5.0) Laboratory Tests Test 07/04/19 02:50 Sodium Level 143 mmol/L (136-145) Potassium Level 4.2 mmol/L (3.5-5.1) Chloride Level 108 mmol/L (98-107) Carbon Dioxide Level 27 mmol/L (21-32) Anion Gap 8 (6-14) Blood Urea Nitrogen 79 mg/dL (7-20) Creatinine 2.7 mg/dL (0.6-1.0) Estimated GFR (Cockcroft-Gault) 21.8 Glucose Level 97 mg/dL (70-99) Calcium Level 8.4 mg/dL (8.5-10.1) Phosphorus Level 4.7 mg/dL (2.6-4.7) Albumin 2.1 g/dL (3.4-5.0) Microbiology 06/28/19 Urine Culture - Final, Complete 06/28/19 Urine Culture Result 1 (JANINE) - Final, Complete 06/28/19 Blood Culture - Final, Complete NO GROWTH AFTER 5 DAYS Medications Current Medications Albuterol/ Ipratropium (Duoneb) 3 ml 1X ONCE NEB Last administered on 06/28/19at 12:30; Start 06/28/19 at 12:30; Stop 06/28/19 at 12:31; Status DC Piperacillin Sod/ Tazobactam Sod 3.375 gm/Sodium Chloride 50 ml @ 100 mls/hr Q6HRS IV Last administered on 07/01/19at 11:11; Start 06/29/19 at 00:00; Stop 07/01/19 at 15:08; Status DC Piperacillin Sod/ Tazobactam Sod 3.375 gm/Sodium Chloride 50 ml @ 100 mls/hr 1X ONCE IV Last administered on 06/28/19at 15:21; Start 06/28/19 at 14:30; Stop 06/28/19 at 14:59; Status DC Albuterol Sulfate (Ventolin Neb Soln) 2.5 mg PRN Q6HRS PRN INH SHORTNESS OF BREATH Last administered on 07/02/19at 05:05; Start 06/28/19 at 15:00 Amlodipine Besylate (Norvasc) 10 mg DAILY PO Last administered on 07/04/19 07:30; Start 06/28/19 at 15:00 Atorvastatin Calcium (Lipitor) 40 mg HS PO Last administered on 07/03/19at 20: 58; Start 06/28/19 at 21:00 Calcium Acetate (Phoslo) 667 mg BIDWMEALS PO Last administered on 07/04/19 08:48; Start 06/28/19 at 17:00 Clonidine HCl (Catapres Tts-2) 1 patch WEEKLY TD ; Start 07/05/19 at 09:00 Hydralazine HCl (Apresoline) 25 mg TID PO Last administered on 07/01/19 08:38; Start 06/28/19 at 15:00; Stop 07/01/19 at 15:16; Status DC Hydroxychloroquine Sulfate (Plaquenil) 200 mg DAILY PO Last administered on 07/04/19 08:47; Start 06/28/19 at 15:00 Labetalol HCl (Trandate) 300 mg BID PO Last administered on 07/04/19 07:31; Start 06/28/19 at 21:00 Pantoprazole Sodium (Protonix) 40 mg DAILYAC PO Last administered on 07/04/19 06:01; Start 06/29/19 at 07:30 Rivaroxaban (Xarelto) 10 mg DAILY PO ; Start 06/28/19 at 21:30; Stop 06/28/19 at 21:55; Status DC Budesonide (Pulmicort) 0.5 mg RTBID NEB Last administered on 07/04/19 07:08; Start 06/28/19 at 20:00 Multivitamins (Thera M Plus) 1 tab DAILY PO Last administered on 07/04/19 08:48; Start 06/29/19 at 09:00 Potassium Chloride (Klor-Con) 20 meq DAILYWBKFT PO Last administered on 07/04/19 08:48; Start 06/29/19 at 08:00 Albuterol/ Ipratropium (Duoneb) 3 ml RTQID NEB ; Start 06/28/19 at 16:00; Stop 06/28/19 at 15:16; Status DC Linezolid/Dextrose 300 ml @ 300 mls/hr Q12HR IV Last administered on 07/01/19at 08:41; Start 06/28/19 at 15:30; Stop 07/01/19 at 15:08; Status DC Sodium Chloride (Normal Saline Flush) 3 ml QSHIFT PRN IV AFTER MEDS AND BLOOD DRAWS; Start 06/28/19 at 15:15 Sodium Chloride 1,000 ml @ 100 mls/hr Q10H IV ; Start 06/28/19 at 15:08; Stop 06/28/19 at 15:39; Status DC Ondansetron HCl (Zofran) 4 mg PRN Q4HRS PRN IV NAUSEA/VOMITING; Start 06/28/19 at 15:15 Acetaminophen (Tylenol) 650 mg PRN Q4HRS PRN PO TEMP OVER 100.4F OR MILD PAIN; Start 06/28/19 at 15:15 Clonidine HCl (Catapres) 0.1 mg PRN Q6HRS PRN PO SBP>160 OR DBP>90 Last administered on 07/03/19at 03:59; Start 06/28/19 at 15:15 Docusate Sodium (Colace) 100 mg PRN BID PRN PO HARD STOOLS Last administered on 07/01/19at 21:21; Start 06/28/19 at 15:15 Albuterol/ Ipratropium (Duoneb) 3 ml Q4HRS NEB Last administered on 07/01/19at 07:38; Start 06/28/19 at 16:00; Stop 07/01/19 at 11:20; Status DC Guaifenesin (Robitussin) 200 mg PRN Q4HRS PRN PO COUGH Last administered on 07/01/19at 21:19; Start 06/28/19 at 15:15 Lorazepam (Ativan) 0.5 mg PRN Q4HRS PRN PO ANXIETY / AGITATION; Start 06/28/19 at 15:15 Furosemide (Lasix) 40 mg 1X ONCE IVP Last administered on 06/28/19at 15:45; Start 06/28/19 at 16:00; Stop 06/28/19 at 16:01; Status DC Enoxaparin Sodium (Lovenox Per Pharmacy Treatment Dosing) 1 each PRN DAILY PRN MC SEE COMMENTS; Start 06/28/19 at 21:15; Status UNV Enoxaparin Sodium (Lovenox Per Pharmacy Treatment Dosing) 1 each PRN DAILY PRN MC SEE COMMENTS; Start 06/28/19 at 22:00; Stop 07/01/19 at 16:13; Status DC Enoxaparin Sodium (Lovenox 80mg Syringe) 80 mg Q24H SQ Last administered on 06/30/19at 21:00; Start 06/28/19 at 22:00; Stop 07/01/19 at 16:08; Status DC Enoxaparin Sodium (Lovenox Per Pharmacy Treatment Dosing) 1 each PRN DAILY PRN MC SEE COMMENTS; Start 06/28/19 at 22:00; Status UNV Guaifenesin (Robitussin Dm) 10 ml PRN Q6HRS PRN PO COUGH 1ST CHOICE Last administered on 06/30/19at 20:57; Start 06/29/19 at 07:45 Calcium Carbonate/ Glycine (Tums) 500 mg PRN AFTMEALHC PRN PO INDIGESTION Last administered on 07/02/19at 08:49; Start 06/29/19 at 07:45 Acetaminophen/ Hydrocodone Bitart (Lortab 5/325) 1 tab PRN Q4HRS PRN PO MODERATE-SEVERE PAIN Last administered on 06/30/19at 20:58; Start 06/29/19 at 07:45 Methylprednisolone Sodium Succinate (SOLU-Medrol 40MG VIAL) 40 mg Q8HRS IV Last administered on 06/30/19at 06:05; Start 06/29/19 at 08:30; Stop 06/30/19 at 08:33; Status DC Furosemide (Lasix) 40 mg DAILY IVP Last administered on 07/01/19at 08:40; Start 06/29/19 at 08:30; Stop 07/01/19 at 11:01; Status DC Lactobacillus Rhamnosus (Culturelle) 1 cap BID PO Last administered on 07/02at 08:50; Start 06/29/19 at 21:00; Stop 07/02/19 at 13:50; Status DC Polyethylene Glycol (miraLAX PACKET) 17 gm DAILY PO Last administered on 07/04/19at 08:46; Start 06/30/19 at 09:00 Polyethylene Glycol (miraLAX PACKET) 17 gm 1X ONCE PO Last administered on 06/29/19at 12:30; Start 06/29/19 at 11:00; Stop 06/29/19 at 11:01; Status DC Magnesium Hydroxide (Milk Of Magnesia) 2,400 mg 1X ONCE PO Last administered on 06/29/19at 12:29; Start 06/29/19 at 11:00; Stop 06/29/19 at 11:01; Status DC Magnesium Hydroxide (Milk Of Magnesia) 2,400 mg PRN DAILY PRN PO CONSTIPATION Last administered on 06/30/19at 15:08; Start 06/29/19 at 10:30 Bisacodyl (Dulcolax Supp) 10 mg PRN DAILY PRN [place] CONSTIPATION Last administered on 06/30/19at 15:09; Start 06/29/19 at 10:30 Methylprednisolone Sodium Succinate (SOLU-Medrol 40MG VIAL) 40 mg Q12HR IV Last administered on 07/01/19 08:41; Start 06/30/19 at 21:00; Stop 07/01/19 at 13:49; Status DC Darbepoetin Emmanuel (ARANESP for NON-DIALYSIS PTS) 60 mcg 1X ONCE SQ Last administered on 07/01/19at 11:11; Start 07/01/19 at 12:00; Stop 07/01/19 at 12:01; Status DC Furosemide (Lasix) 40 mg BID IVP Last administered on 07/01/19 21:20; Start 07/01/19 at 11:00; Stop 07/02/19 at 12:12; Status DC Albuterol Sulfate (Ventolin Neb Soln) 2.5 mg 1X ONCE NEB ; Start 07/01/19 at 11:30; Stop 07/01/19 at 11:31; Status DC Albuterol/ Ipratropium (Duoneb) 3 ml RTQID NEB Last administered on 07/04/19at 11:00; Start 07/01/19 at 12:00 Info (Anti-Coagulation Monitoring By Pharmacy) 1 each PRN DAILY PRN MC SEE COMMENTS; Start 07/01/19 at 14:00 Hydralazine HCl (Apresoline) 50 mg TID PO Last administered on 07/01/19at 15:36; Start 07/01/19 at 15:15; Stop 07/01/19 at 15:56; Status DC Hydralazine HCl (Apresoline) 100 mg TID PO Last administered on 07/04/19at 08:49; Start 07/01/19 at 21:00 Apixaban (Eliquis) 5 mg BID PO Last administered on 07/04/19at 08:48; Start 07/01/19 at 21:00 Furosemide 100 mg/ Sodium Chloride 100 ml @ 5 mls/hr CONT PRN IV SEE I/O RECORD Last administered on 07/03/19at 19:53; Start 07/02/19 at 12:00 Hydralazine HCl (Apresoline Inj) 10 mg PRN Q4HRS PRN IVP ELEVATED BP, SEE C OMMENTS Last administered on 07/04/19at 07:23; Start 07/03/19 at 08:30 Hydralazine HCl (Apresoline) 10 mg TID PO ; Start 07/03/19 at 09:00; Status Cancel Active Scripts Active Lasix (Furosemide) 40 Mg Tablet 1 Tab PO DAILY 5 Days Guaifenesin 100 Mg/5 Ml Liquid 200 Mg PO PRN Q4HRS PRN 7 Days Ativan (Lorazepam) 0.5 Mg Tablet 0.5 Mg PO PRN Q4HRS PRN Hydrocodone-Apap 5-325 (Hydrocodone Bit/Acetaminophen) 1 Tab Tablet 1 Tab PO PRN Q4HRS PRN Amlodipine Besylate 10 Mg Tablet 10 Mg PO DAILY 30 Days Labetalol Hcl 200 Mg Tablet 300 Mg PO BID 30 Days Hydralazine Hcl 25 Mg Tablet 25 Mg PO TID 30 Days Clonidine Tts-2 (Clonidine) 1 Each Patch.tdwk 1 Patch TD WEEKLY 30 Days Reported Protonix (Pantoprazole Sodium) 40 Mg Tablet.dr 40 Mg PO DAILYAC Hydroxychloroquine Sulfate 200 Mg Tablet 200 Mg PO DAILY Multivitamins (Multivitamin) 1 Each Tablet 1 Tab PO DAILY Symbicort 160-4.5 Mcg Inhaler (Budesonide/Formoterol Fumarate) 10.2 Gm Hfa.aer.ad 1 Puff IH BID Spiriva (Tiotropium [place]) 18 Mcg Cap.w.dev 2 Inh IH DAILY Proair Hfa Inhaler (Albuterol Sulfate) 8.5 Gm Hfa.aer.ad 1 Puff INH PRN Q6HRS PRN Xarelto (Rivaroxaban) 10 Mg Tablet 10 Mg PO DAILY Atorvastatin Calcium 40 Mg Tablet 40 Mg PO HS Phoslo (Calcium Acetate) 667 Mg Capsule 1 Cap PO BIDWMEALS K-Tab ER (Potassium Chloride) 20 Meq Tablet.er 20 Meq PO DAILY Vitals/I & O Vital Sign - Last 24 Hours 07/03/19 07/03/19 07/03/19 07/03/19 15:00 15:20 15:24 19:20 Temp 98.1 98.1 Pulse 74 76 Resp 20 B/P (MAP) 155/83 (107) 157/84 Pulse Ox 94 96 O2 Delivery Nasal Cannula Nasal Cannula Nasal Cannula O2 Flow Rate 2.0 2.0 2.0 07/03/19 07/03/19 07/03/19 07/03/19 19:29 19:58 20:58 20:59 Temp 98.5 98.5 Pulse 87 87 87 Resp 18 B/P (MAP) 174/86 (115) 174/86 174/86 Pulse Ox 100 100 O2 Delivery BiPAP/CPAP Nasal Cannula O2 Flow Rate 2.0 2.0 07/03/19 07/04/19 07/04/19 07/04/19 22:36 03:24 07:00 07:09 Temp 98.6 99.2 98.3 98.6 99.2 98.3 Pulse 88 91 90 Resp 18 18 18 B/P (MAP) 172/90 (117) 181/87 (118) 190/92 (124) Pulse Ox 100 100 98 98 O2 Delivery Nasal Cannula Nasal Cannula Nasal Cannula Nasal Cannula O2 Flow Rate 2.0 2.0 2.0 2.0 07/04/19 07/04/19 07/04/19 07/04/19 07:23 07:30 07:30 07:31 Pulse 88 87 87 B/P (MAP) 190/92 190/92 190/92 O2 Delivery Nasal Cannula O2 Flow Rate 2.0 07/04/19 07/04/19 07/04/19 08:49 09:32 11:00 Pulse 90 86 B/P (MAP) 127/66 127/66 (86) Pulse Ox 100 O2 Delivery Nasal Cannula O2 Flow Rate 2.0 Intake and Output 07/03/19 07/03/19 07/04/19 15:00 23:00 07:00 Intake Total 480 ml 300 ml 150 ml Output Total 900 ml 900 ml 1450 ml Balance -420 ml -600 ml -1300 ml SHARA SHEEHAN MD Jul 04, 2019 11:34
--- NOTE | 2019-07-04 12:04 | PDOC ---
CURTIS DOE ESCAPEMENT MATCHER 07/04/19 1204: CARDIO Progress Notes Date and Time Date of Service 07/04/2019 Time of Evaluation 1145 Subjective Subjective: No Chest Pain, No shortness of breath, No Palpitations, Other (SOA with exertion) Vitals Vitals Vital Signs Date Time Temp Pulse Resp B/P (MAP) Pulse Ox O2 Delivery O2 Flow Rate FiO2 07/04/19 11:00 100 Nasal Cannula 2.0 07/04/19 11:00 98.6 85 18 138/80 (99) 98.6 Weight Weight [ ] Input and Output Intake and Output Intake and Output 07/04/19 06:59 Intake Total 930 ml Output Total 3250 ml Balance -2320 ml Intake Oral 930 ml Output Urine Total 3250 ml # Bowel Movements 2 Laboratory Labs Laboratory Tests Test 07/04/19 02:50 Sodium Level 143 mmol/L (136-145) Potassium Level 4.2 mmol/L (3.5-5.1) Chloride Level 108 mmol/L (98-107) Carbon Dioxide Level 27 mmol/L (21-32) Anion Gap 8 (6-14) Blood Urea Nitrogen 79 mg/dL (7-20) Creatinine 2.7 mg/dL (0.6-1.0) Estimated GFR (Cockcroft-Gault) 21.8 Glucose Level 97 mg/dL (70-99) Calcium Level 8.4 mg/dL (8.5-10.1) Phosphorus Level 4.7 mg/dL (2.6-4.7) Albumin 2.1 g/dL (3.4-5.0) Microbiology Micro Microbiology 06/28/19 Urine Culture - Final, Complete 06/28/19 Urine Culture Result 1 (JANINE) - Final, Complete 06/28/19 Blood Culture - Final, Complete NO GROWTH AFTER 5 DAYS Physical Exam HEENT: Neck Supple W Full Motion Chest: Symmetric LUNGS: Other (diminished bases) Heart: S1S2, RRR (SR), murmurs (3/6 systolic murmur to FRANTZ border) Abdomen: Soft N/T Extremities: Other (3+ bilateral LE edema ) Neurology: alert, oriented, follow commands Assessment Assessment 1. Acute respiratory failure with acute CHF, AECOPD, and anemia 2. Acute on chronic CHF; appears compensated 3. PAFIB: maintaining SR. 4. Malignant HTN: BP much better 5. Hyperlipidemia; statin therapy 6. , mild 7. RIYA on CKD: Cr 2.7 remains uremic 8. COPD/moderate pulmonary HTN: stable 9. Anemia, chronic: Hgb 7.7 10. Hx of SLE and membranous nephropathy Recommendations 1. Lasix drip per nephrology 2. Continue with current BP regimen. No ACEi/ARB at this time. 3. Continue eliquis for stroke prevention 4. Supportive care. 5. Discussed with RN to do standing wt. Based on past wt. approximate euvolemic state was 62Kg. BRENDA RAY MD 07/04/19 1658: CARDIO Progress Notes Assessment Assessment Patient seen and examined. Agree with BILLING AND ACCOUNTING STAFF ASSISTANT's assessment and plan. Acute on chronic diastolic heart failure improving with Lasix drip. I/O negative by 2.3 L/24 hours. Nephrology following PAF maintaining sinus rhythm. Continue eliquis for stroke prophylaxis. CURTIS DEO APRN Jul 04, 2019 12:04 BRENDA RAY MD Jul 04, 2019 16:58
[2019-07-04] MEDS: cloNIDine HCL 0.1 MG TABLET PO PRN ×2 (17:51→23:00)
[2019-07-04] MEDS: FUROSEMIDE INJ 100 MG in IV NORMAL SALINE 100ML 100 ML IV PRN (19:10)
--- NOTE | 2019-07-04 20:20 | NUR ---
Assessment completed vss pt sleeping but easily arousable,pt denies pain at this time will continue to monitor pt.Call light in reach.
[2019-07-04] MEDS: ATORVASTATIN CALCIUM 40 MG TABLET. PO SCH (21:09)
[2019-07-04] MEDS: guaiFENesin DM 200MG/20MG 10 ML SYRUP PO PRN (21:10)
[2019-07-05 03:23] VITALS: BP 180/88
[2019-07-05] MEDS: PANTOPRAZOLE 40 MG TABLET.DR. PO SCH (05:48)
[2019-07-05 05:53] LABS: ALBUMIN 2.2 g/dL (3.4-5.0); CALCIUM 8.8 mg/dL (8.5-10.1); CREATININE 2.7 mg/dL (0.6-1.0); GFR 21.8; PHOSPHORUS 4.1 mg/dL (2.6-4.7); POTASSIUM 4.1 mmol/L (3.5-5.1)
[2019-07-05 07:00] VITALS: BP 186/92
[2019-07-05] MEDS: BUDESONIDE 0.5 MG/2 ML NEBU. NEB SCH ×2 (07:01→19:45)
[2019-07-05] MEDS: IPRATRPIUM/ALBUTEROL 0.5/2.5MG 3 ML NEBU. NEB SCH ×4 (07:02→19:45)
[2019-07-05] MEDS ORDERED: cloNIDine TTS-2 1 PATCH PATCH TD SCH (09:00)
[2019-07-05 09:19] LABS: HEMATOCRIT 22.4 % (36.0-47.0); HEMOGLOBIN 7.3 g/dL (12.0-15.5)
[2019-07-05] MEDS: POLYETHYLENE GLYCOL 3350 17 GM PACKET. PO SCH (09:27)
[2019-07-05] MEDS: MULTIVITAMIN with MINERAL TABLET. PO SCH (09:27)
[2019-07-05] MEDS: ACETAMINOPHEN 325 MG TABLET. PO PRN ×2 (09:28→21:05)
[2019-07-05] MEDS: APIXABAN 5 MG TABLET. PO SCH ×2 (09:28→21:03)
[2019-07-05] MEDS: POTASSIUM CHLORIDE 20 MEQ TABLET.ER. PO SCH (09:28)
[2019-07-05] MEDS: CALCIUM ACETATE 667 MG CAPSULE PO SCH ×2 (09:28→17:20)
[2019-07-05] MEDS: amLODIPine BESYLATE 10 MG TABLET PO SCH (09:28)
[2019-07-05] MEDS: LABETALOL HCL 100 MG TABLET. PO SCH ×2 (09:29→21:03)
[2019-07-05] MEDS: ISOSORBIDE MONONITRATE ER 30 MG TAB.ER.24H PO SCH (09:29)
--- NOTE | 2019-07-05 09:29 | PDOC ---
PULMONARY PROGRESS NOTES Subjective NOT MORE SOA NO CHEST PAIN Vitals Vital Signs Date Time Temp Pulse Resp B/P (MAP) Pulse Ox O2 Delivery O2 Flow Rate FiO2 07/05/19 07:02 97 Room Air 07/05/19 07:00 98.1 95 18 186/92 (123) 98.1 07/04/19 15:19 1.0 ROS: No Nausea, No Chest Pain, No Abdominal Pain, No Increase Cough General: Alert HEENT: Other Lungs: Crackles Cardiovascular: S1, S2 Abdomen: Soft, Non-tender Neuro Exam: Alert, Oriented Extremities: Other (edema) Skin: Warm Labs Laboratory Tests Test 07/03/19 09:30 07/04/19 02:50 07/05/19 04:00 Clostridium difficile Toxin B Gene Negative (Negative) Sodium Level 143 mmol/L (136-145) 146 mmol/L (136-145) Potassium Level 4.2 mmol/L (3.5-5.1) 4.1 mmol/L (3.5-5.1) Chloride Level 108 mmol/L (98-107) 109 mmol/L (98-107) Carbon Dioxide Level 27 mmol/L (21-32) 28 mmol/L (21-32) Anion Gap 8 (6-14) 9 (6-14) Blood Urea Nitrogen 79 mg/dL (7-20) 71 mg/dL (7-20) Creatinine 2.7 mg/dL (0.6-1.0) 2.7 mg/dL (0.6-1.0) Estimated GFR (Cockcroft-Gault) 21.8 21.8 Glucose Level 97 mg/dL (70-99) 98 mg/dL (70-99) Calcium Level 8.4 mg/dL (8.5-10.1) 8.8 mg/dL (8.5-10.1) Phosphorus Level 4.7 mg/dL (2.6-4.7) 4.1 mg/dL (2.6-4.7) Albumin 2.1 g/dL (3.4-5.0) 2.2 g/dL (3.4-5.0) Hemoglobin 7.3 g/dL (12.0-15.5) Hematocrit 22.4 % (36.0-47.0) Mean Corpuscular Hemoglobin Concent 33 g/dL (31-37) Laboratory Tests Test 07/05/19 04:00 Hemoglobin 7.3 g/dL (12.0-15.5) Hematocrit 22.4 % (36.0-47.0) Mean Corpuscular Hemoglobin Concent 33 g/dL (31-37) Sodium Level 146 mmol/L (136-145) Potassium Level 4.1 mmol/L (3.5-5.1) Chloride Level 109 mmol/L (98-107) Carbon Dioxide Level 28 mmol/L (21-32) Anion Gap 9 (6-14) Blood Urea Nitrogen 71 mg/dL (7-20) Creatinine 2.7 mg/dL (0.6-1.0) Estimated GFR (Cockcroft-Gault) 21.8 Glucose Level 98 mg/dL (70-99) Calcium Level 8.8 mg/dL (8.5-10.1) Phosphorus Level 4.1 mg/dL (2.6-4.7) Albumin 2.2 g/dL (3.4-5.0) Medications Active Scripts Medications Dose Route/Sig Max Daily Dose Days Date Category Amlodipine Besylate 10 Mg Tablet 10 Mg PO DAILY 30 06/13/19 Rx Labetalol Hcl 200 Mg Tablet 300 Mg PO BID 30 06/13/19 Rx Hydralazine Hcl 25 Mg Tablet 25 Mg PO TID 30 06/13/19 Rx Clonidine Tts-2 (Clonidine) 1 Each Patch.tdwk 1 Patch TD WEEKLY 30 06/13/19 Rx Protonix (Pantoprazole Sodium) 40 Mg Tablet.dr 40 Mg PO DAILYAC 06/05/19 Reported Hydroxychloroquine Sulfate 200 Mg Tablet 200 Mg PO DAILY 06/05/19 Reported Multivitamins (Multivitamin) 1 Each Tablet 1 Tab PO DAILY 06/05/19 Reported Symbicort 160-4.5 Mcg Inhaler (Budesonide/Formoterol Fumarate) 10.2 Gm Hfa.aer.ad 1 Puff IH BID 12/13/18 Reported Spiriva (Tiotropium [place]) 18 Mcg Cap.w.dev 2 Inh IH DAILY 12/13/18 Reported Proair Hfa Inhaler (Albuterol Sulfate) 8.5 Gm Hfa.aer.ad 1 Puff INH PRN Q6HRS PRN 12/13/18 Reported Xarelto (Rivaroxaban) 10 Mg Tablet 10 Mg PO DAILY 12/13/18 Reported Atorvastatin Calcium 40 Mg Tablet 40 Mg PO HS 12/13/18 Reported Phoslo (Calcium Acetate) 667 Mg Capsule 1 Cap PO BIDWMEALS 06/11/14 Reported K-Tab ER (Potassium Chloride) 20 Meq Tablet.er 20 Meq PO DAILY 05/23/14 Reported Impression . IMPRESSION: 1. Acute respiratory failure SUSPECT MOSTLY CHF 2. Abnormal chest x-ray. 3. Acute exacerbation of chronic obstructive pulmonary disease. 4. Acute diastolic congestive heart failure. 5. Chronic kidney disease. 6. Ex-smoker. 7. Paroxysmal atrial fibrillation. 8. History of pulmonary embolism. 9. Anemia. 10. Hypertension. 11. LOWE EXT VENOUS DOPPLER NEGATIVE Plan . ON LASIX DRIP PER NEPHRO WILL CONTINUE THE SAME DOUBT PE CLINICAL SUSPICION IS LOW DEFER ANTIBX USE TO ID ON ANTICOUGULATION FOR AF ROSE MARIE BANG MD Jul 05, 2019 09:29
[2019-07-05] MEDS: HYDROXYCHLOROQUINE 200 MG TABLET PO SCH (09:30)
--- NOTE | 2019-07-05 09:59 | PDOC ---
SUBJECTIVE ROS No complaints,wt down, LE edema + OBJECTIVE Vital Signs Vital Signs Date Time Temp Pulse Resp B/P (MAP) Pulse Ox O2 Delivery O2 Flow Rate FiO2 07/05/19 09:30 165/86 07/05/19 09:29 89 07/05/19 07:02 97 Room Air 07/05/19 07:00 98.1 18 98.1 07/04/19 15:19 1.0 I & 0 Intake and Output 07/05/19 07:00 Intake Total 840 ml Output Total 4450 ml Balance -3610 ml Intake Oral 780 ml IV Total 60 ml Output Urine Total 4450 ml # Bowel Movements 4 PHYSICAL EXAM Physical Exam General: No acute distress HEENT: On 02 by NC Neck Supple Lungs: Clear to auscultation, Non labored Heart: Regular rate, Normal S1, Normal S2, systolic murmur + Abdomen: Soft, No tenderness Extremities: LE edema ++ Skin: No rash Neuro: Grossly normal Psych/Mental Status: Mental status NL, Mood NL Has Rodríguez now DIAGNOSIS/ASSESSMENT Assessment & Plan RIYA- s/p cardiac Cath 06/07 renal function stable,diuresing well,Continue IV lasix drip E-Lytes , acid base 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 On IV lasix drip Possible diastolic heart failure- mild aortic stenosis and elevated pulmonary artery pressures Atrial fibrillation. Chest Pain s/p cardiac Cath 06/07, Normal Membranous Nephropathy Dx in post Bx Proteinuria at Dx was 8 gm, improved most recent Pr/Cr <200 holding due to worsening renal function SLE- Use to follow with Rheumatology (Dr Hill) ,was on Imuran Currently only on Hydroxychloroquine Not seen for long time due to the financial constraints HTN- antihypertensives,BP better Renal Doppler - No Doppler evidence of greater than 60% stenosis within the renal arteries. Anemia-Follows with Dr. Baez as OP and was on Aranesp Tsat mildly low, would hold IV Fe until Infection resolves On SAUMYA, Monitor BP COMMENT/RELEVANT DATA Meds Current Medications Medications (Trade) Dose Ordered Sig/Blaine Start Time Stop Time Status Last Admin Dose Admin Acetaminophen (Tylenol) 650 mg PRN Q4HRS PRN 06/28/19 15:15 07/05/19 09:28 650 MG Acetaminophen/ Hydrocodone Bitart (Lortab 5/325) 1 tab PRN Q4HRS PRN 06/29/19 07:45 06/30/19 20:58 1 TAB Albuterol Sulfate (Ventolin Neb Soln) 2.5 mg 1X ONCE 07/01/19 11:30 07/01/19 11:31 DC Albuterol/ Ipratropium (Duoneb) 3 ml RTQID 07/01/19 12:00 07/05/19 07:02 3 ML Amlodipine Besylate (Norvasc) 10 mg DAILY 06/28/19 15:00 07/05/19 09:28 10 MG Apixaban (Eliquis) 5 mg BID 07/01/19 21:00 07/05/19 09:28 5 MG Atorvastatin Calcium (Lipitor) 40 mg HS 06/28/19 21:00 07/04/19 21:09 40 MG Bisacodyl (Dulcolax Supp) 10 mg PRN DAILY PRN 06/29/19 10:30 06/30/19 15:09 10 MG Budesonide (Pulmicort) 0.5 mg RTBID 06/28/19 20:00 07/05/19 07:01 0.5 MG Calcium Acetate (Phoslo) 667 mg BIDWMEALS 06/28/19 17:00 07/05/19 09:28 667 MG Calcium Carbonate/ Glycine (Tums) 500 mg PRN AFTMEALHC PRN 06/29/19 07:45 07/02/19 08:49 500 MG Clonidine HCl (Catapres Tts-2) 1 patch WEEKLY 07/05/19 09:00 07/05/19 09:38 1 PATCH Clonidine HCl (Catapres) 0.1 mg PRN Q6HRS PRN 06/28/19 15:15 07/04/19 23:00 0.1 MG Darbepoetin Emmanuel (ARANESP for NON-DIALYSIS PTS) 60 mcg 1X ONCE 07/01/19 12:00 07/01/19 12:01 DC 07/01/19 11:11 60 MCG Docusate Sodium (Colace) 100 mg PRN BID PRN 06/28/19 15:15 07/01/19 21:21 100 MG Enoxaparin Sodium (Lovenox 80mg Syringe) 80 mg Q24H 06/28/19 22:00 07/01/19 16:08 DC 06/30/19 21:00 80 MG Enoxaparin Sodium (Lovenox Per Pharmacy Treatment Dosing) 1 each PRN DAILY PRN 06/28/19 22:00 UNV Furosemide (Lasix) 40 mg BID 07/01/19 11:00 07/02/19 12:12 DC 07/01/19 21:20 40 MG Furosemide 100 mg/ Sodium Chloride 100 ml @ 5 mls/hr CONT PRN 07/02/19 12:00 07/04/19 19:10 5 MLS/HR Guaifenesin (Robitussin Dm) 10 ml PRN Q6HRS PRN 06/29/19 07:45 07/04/19 21:10 10 ML Guaifenesin (Robitussin) 200 mg PRN Q4HRS PRN 06/28/19 15:15 07/01/19 21:19 200 MG Hydralazine HCl (Apresoline Inj) 10 mg PRN Q4HRS PRN 07/03/19 08:30 07/04/19 07:23 10 MG Hydralazine HCl (Apresoline) 10 mg TID 07/03/19 09:00 Cancel Hydroxychloroquine Sulfate (Plaquenil) 200 mg DAILY 06/28/19 15:00 07/05/19 09:30 200 MG Info (Anti-Coagulation Monitoring By Pharmacy) 1 each PRN DAILY PRN 07/01/19 14:00 Isosorbide Mononitrate (Imdur) 30 mg DAILY 07/05/19 09:00 07/05/19 09:29 30 MG Labetalol HCl (Trandate) 300 mg BID 06/28/19 21:00 07/05/19 09:29 300 MG Lactobacillus Rhamnosus (Culturelle) 1 cap BID 06/29/19 21:00 07/02/19 13:50 DC 07/02/19 08:50 1 CAP Linezolid/Dextrose 300 ml @ 300 mls/hr Q12HR 06/28/19 15:30 07/01/19 15:08 DC 07/01/19 08:41 300 MLS/HR Lorazepam (Ativan) 0.5 mg PRN Q4HRS PRN 06/28/19 15:15 Magnesium Hydroxide (Milk Of Magnesia) 2,400 mg PRN DAILY PRN 06/29/19 10:30 06/30/19 15:08 2,400 MG Methylprednisolone Sodium Succinate (SOLU-Medrol 40MG VIAL) 40 mg Q12HR 06/30/19 21:00 07/01/19 13:49 DC 07/01/19 08:41 40 MG Multivitamins (Thera M Plus) 1 tab DAILY 06/29/19 09:00 07/05/19 09:27 1 TAB Ondansetron HCl (Zofran) 4 mg PRN Q4HRS PRN 06/28/19 15:15 Pantoprazole Sodium (Protonix) 40 mg DAILYAC 06/29/19 07:30 07/05/19 05:48 40 MG Piperacillin Sod/ Tazobactam Sod 3.375 gm/Sodium Chloride 50 ml @ 100 mls/hr 1X ONCE 06/28/19 14:30 06/28/19 14:59 DC 06/28/19 15:21 100 MLS/HR Polyethylene Glycol (miraLAX PACKET) 17 gm 1X ONCE 06/29/19 11:00 06/29/19 11:01 DC 06/29/19 12:30 17 GM Potassium Chloride (Klor-Con) 20 meq DAILYWBKFT 06/29/19 08:00 07/05/19 09:28 20 MEQ Rivaroxaban (Xarelto) 10 mg DAILY 06/28/19 21:30 06/28/19 21:55 DC Sodium Chloride 1,000 ml @ 100 mls/hr Q10H 06/28/19 15:08 06/28/19 15:39 DC Sodium Chloride (Normal Saline Flush) 3 ml QSHIFT PRN 06/28/19 15:15 Lab Laboratory Tests Test 07/05/19 04:00 Hemoglobin 7.3 g/dL (12.0-15.5) Hematocrit 22.4 % (36.0-47.0) Mean Corpuscular Hemoglobin Concent 33 g/dL (31-37) Sodium Level 146 mmol/L (136-145) Potassium Level 4.1 mmol/L (3.5-5.1) Chloride Level 109 mmol/L (98-107) Carbon Dioxide Level 28 mmol/L (21-32) Anion Gap 9 (6-14) Blood Urea Nitrogen 71 mg/dL (7-20) Creatinine 2.7 mg/dL (0.6-1.0) Estimated GFR (Cockcroft-Gault) 21.8 Glucose Level 98 mg/dL (70-99) Calcium Level 8.8 mg/dL (8.5-10.1) Phosphorus Level 4.1 mg/dL (2.6-4.7) Albumin 2.2 g/dL (3.4-5.0) Results All relevant outside records, renal labs, imaging studies, telemetry/EKG's were reviewed. SHEILA CERWS MD Jul 05, 2019 09:59
--- NOTE | 2019-07-05 10:19 | NUR ---
SS following up with discharge planning. Pt remains on Lasix drip at this time. PT/OT recommending shelter unit. Pt is from [facility], ; fax [phone], and will need new referral and insurance authorization prior to returning. SS will continue to follow for discharge planning.
[2019-07-05 11:00] VITALS: BP 160/81
--- NOTE | 2019-07-05 11:48 | PDOC ---
PROGRESS NOTES Chief Complaint Chief Complaint 1. Acute respiratory failure, multifactorial in etiology including acute diastolic congestive heart failure, acute exacerbation of chronic obstructive pulmonary disease? thromboembolic disease versus others. 2. Abnormal chest x-ray. 3. Acute exacerbation of chronic obstructive pulmonary disease. 4. Acute diastolic congestive heart failure. 5. Chronic kidney disease. 6. Ex-smoker. 7. Paroxysmal atrial fibrillation. 8. History of pulmonary embolism. 9. Anemia. 10. Hypertension. 11. Acute precip drop hgb - likely sec to CKD 12. NOrmocytic, chronic anemia 13. MEt enceph 14. LEg edema History of Present Illness History of Present Illness DAY 3 lasix gtt, doing well, legs bettrer, luytes holding CREat 2.7 AND STABLE hgb stable 7,.7 - positive BM NO inc in SOA Still some leg edema, but way better Came from pplace BP high side PLAN: No need for bT, hgb stable at 7,7 COnt lasix gtt per renAl, lytes are holding PPLAce monday on hydralazine 100 TID PO Martinez cath inserted 07/12 bec of lasix gtt pplace on dc, only has limited SNU days left per SW - i told this to pt dw her and aide at bedside Vitals Vitals Vital Signs Date Time Temp Pulse Resp B/P (MAP) Pulse Ox O2 Delivery O2 Flow Rate FiO2 07/05/19 11:00 98.0 87 18 160/81 (107) 92 Room Air 98.0 07/04/19 15:19 1.0 Physical Exam Physical Exam GENERAL: Propped up in chair and alert HEENT: Pupils equally round. Oropharynx pink and moist. NECK: Supple. LUNGS: CTA HEART: S1, S2. Murmur present. ABDOMEN: Soft, nontender with bowel sounds present. EXTREMITIES: Pedal edema bilaterally. No cyanosis. SKIN: Warm to touch. No signs of rash. NEUROLOGIC: Alert, answers questions appropriately PIV General: mild distress Heart: Regular rate Lungs: Crackles Abdomen: Normal bowel sounds Extremities: No cyanosis, Other (plus 2-3 edema) Skin: No rashes, No breakdown Labs LABS Laboratory Tests Test 07/05/19 04:00 Hemoglobin 7.3 g/dL (12.0-15.5) Hematocrit 22.4 % (36.0-47.0) Mean Corpuscular Hemoglobin Concent 33 g/dL (31-37) Sodium Level 146 mmol/L (136-145) Potassium Level 4.1 mmol/L (3.5-5.1) Chloride Level 109 mmol/L (98-107) Carbon Dioxide Level 28 mmol/L (21-32) Anion Gap 9 (6-14) Blood Urea Nitrogen 71 mg/dL (7-20) Creatinine 2.7 mg/dL (0.6-1.0) Estimated GFR (Cockcroft-Gault) 21.8 Glucose Level 98 mg/dL (70-99) Calcium Level 8.8 mg/dL (8.5-10.1) Phosphorus Level 4.1 mg/dL (2.6-4.7) Albumin 2.2 g/dL (3.4-5.0) Review of Systems Review of Systems no complaints Assessment and Plan Assessmemt and Plan Problems Medical Problems: (1) Acute exacerbation of CHF (congestive heart failure) Status: Acute (2) Shortness of breath Status: Acute Comment Review of Relevant I have reviewed the following items gregorio (where applicable) has been applied. Labs Laboratory Tests Test 07/04/19 02:50 07/05/19 04:00 Sodium Level 143 mmol/L (136-145) 146 mmol/L (136-145) Potassium Level 4.2 mmol/L (3.5-5.1) 4.1 mmol/L (3.5-5.1) Chloride Level 108 mmol/L (98-107) 109 mmol/L (98-107) Carbon Dioxide Level 27 mmol/L (21-32) 28 mmol/L (21-32) Anion Gap 8 (6-14) 9 (6-14) Blood Urea Nitrogen 79 mg/dL (7-20) 71 mg/dL (7-20) Creatinine 2.7 mg/dL (0.6-1.0) 2.7 mg/dL (0.6-1.0) Estimated GFR (Cockcroft-Gault) 21.8 21.8 Glucose Level 97 mg/dL (70-99) 98 mg/dL (70-99) Calcium Level 8.4 mg/dL (8.5-10.1) 8.8 mg/dL (8.5-10.1) Phosphorus Level 4.7 mg/dL (2.6-4.7) 4.1 mg/dL (2.6-4.7) Albumin 2.1 g/dL (3.4-5.0) 2.2 g/dL (3.4-5.0) Hemoglobin 7.3 g/dL (12.0-15.5) Hematocrit 22.4 % (36.0-47.0) Mean Corpuscular Hemoglobin Concent 33 g/dL (31-37) Laboratory Tests Test 07/05/19 04:00 Hemoglobin 7.3 g/dL (12.0-15.5) Hematocrit 22.4 % (36.0-47.0) Mean Corpuscular Hemoglobin Concent 33 g/dL (31-37) Sodium Level 146 mmol/L (136-145) Potassium Level 4.1 mmol/L (3.5-5.1) Chloride Level 109 mmol/L (98-107) Carbon Dioxide Level 28 mmol/L (21-32) Anion Gap 9 (6-14) Blood Urea Nitrogen 71 mg/dL (7-20) Creatinine 2.7 mg/dL (0.6-1.0) Estimated GFR (Cockcroft-Gault) 21.8 Glucose Level 98 mg/dL (70-99) Calcium Level 8.8 mg/dL (8.5-10.1) Phosphorus Level 4.1 mg/dL (2.6-4.7) Albumin 2.2 g/dL (3.4-5.0) Microbiology 06/28/19 Urine Culture - Final, Complete 06/28/19 Urine Culture Result 1 (JANINE) - Final, Complete 06/28/19 Blood Culture - Final, Complete NO GROWTH AFTER 5 DAYS Medications Current Medications Albuterol/ Ipratropium (Duoneb) 3 ml 1X ONCE NEB Last administered on 06/28/19at 12:30; Start 06/28/19 at 12:30; Stop 06/28/19 at 12:31; Status DC Piperacillin Sod/ Tazobactam Sod 3.375 gm/Sodium Chloride 50 ml @ 100 mls/hr Q6HRS IV Last administered on 07/01/19at 11:11; Start 06/29/19 at 00:00; Stop 07/01/19 at 15:08; Status DC Piperacillin Sod/ Tazobactam Sod 3.375 gm/Sodium Chloride 50 ml @ 100 mls/hr 1X ONCE IV Last administered on 06/28/19 15:21; Start 06/28/19 at 14:30; Stop 06/28/19 at 14:59; Status DC Albuterol Sulfate (Ventolin Neb Soln) 2.5 mg PRN Q6HRS PRN INH SHORTNESS OF BREATH Last administered on 07/02/19 05:05; Start 06/28/19 at 15:00 Amlodipine Besylate (Norvasc) 10 mg DAILY PO Last administered on 07/05/19 09:28; Start 06/28/19 at 15:00 Atorvastatin Calcium (Lipitor) 40 mg HS PO Last administered on 07/04/19 21:09; Start 06/28/19 at 21:00 Calcium Acetate (Phoslo) 667 mg BIDWMEALS PO Last administered on 07/05/19 09:28; Start 06/28/19 at 17:00 Clonidine HCl (Catapres Tts-2) 1 patch WEEKLY TD Last administered on 07/05/19 09:38; Start 07/05/19 at 09:00 Hydralazine HCl (Apresoline) 25 mg TID PO Last administered on 07/01/19 08:38; Start 06/28/19 at 15:00; Stop 07/01/19 at 15:16; Status DC Hydroxychloroquine Sulfate (Plaquenil) 200 mg DAILY PO Last administered on 07/05/19 09:30; Start 06/28/19 at 15:00 Labetalol HCl (Trandate) 300 mg BID PO Last administered on 07/05/19 09:29; Start 06/28/19 at 21:00 Pantoprazole Sodium (Protonix) 40 mg DAILYAC PO Last administered on 07/05/19 05:48; Start 06/29/19 at 07:30 Rivaroxaban (Xarelto) 10 mg DAILY PO ; Start 06/28/19 at 21:30; Stop 06/28/19 at 21:55; Status DC Budesonide (Pulmicort) 0.5 mg RTBID NEB Last administered on 07/05/19 07:01; Start 06/28/19 at 20:00 Multivitamins (Thera M Plus) 1 tab DAILY PO Last administered on 07/05/19 09:27; Start 06/29/19 at 09:00 Potassium Chloride (Klor-Con) 20 meq DAILYWBKFT PO Last administered on 07/05/19at 09:28; Start 06/29/19 at 08:00 Albuterol/ Ipratropium (Duoneb) 3 ml RTQID NEB ; Start 06/28/19 at 16:00; Stop 06/28/19 at 15:16; Status DC Linezolid/Dextrose 300 ml @ 300 mls/hr Q12HR IV Last administered on 07/01/19 08:41; Start 06/28/19 at 15:30; Stop 07/01/19 at 15:08; Status DC Sodium Chloride (Normal Saline Flush) 3 ml QSHIFT PRN IV AFTER MEDS AND BLOOD DRAWS; Start 06/28/19 at 15:15 Sodium Chloride 1,000 ml @ 100 mls/hr Q10H IV ; Start 06/28/19 at 15:08; Stop 06/28/19 at 15:39; Status DC Ondansetron HCl (Zofran) 4 mg PRN Q4HRS PRN IV NAUSEA/VOMITING; Start 06/28/19 at 15:15 Acetaminophen (Tylenol) 650 mg PRN Q4HRS PRN PO TEMP OVER 100.4F OR MILD PAIN Last administered on 07/05/19 09:28; Start 06/28/19 at 15:15 Clonidine HCl (Catapres) 0.1 mg PRN Q6HRS PRN PO SBP>160 OR DBP>90 Last administered on 07/04/19at 23:00; Start 06/28/19 at 15:15 Docusate Sodium (Colace) 100 mg PRN BID PRN PO HARD STOOLS Last administered on 07/01/19 21:21; Start 06/28/19 at 15:15 Albuterol/ Ipratropium (Duoneb) 3 ml Q4HRS NEB Last administered on 07/01/19at 07:38; Start 06/28/19 at 16:00; Stop 07/01/19 at 11:20; Status DC Guaifenesin (Robitussin) 200 mg PRN Q4HRS PRN PO COUGH Last administered on 07/01/19 21:19; Start 06/28/19 at 15:15 Lorazepam (Ativan) 0.5 mg PRN Q4HRS PRN PO ANXIETY / AGITATION; Start 06/28/19 at 15:15 Furosemide (Lasix) 40 mg 1X ONCE IVP Last administered on 06/28/19at 15:45; Start 06/28/19 at 16:00; Stop 06/28/19 at 16:01; Status DC Enoxaparin Sodium (Lovenox Per Pharmacy Treatment Dosing) 1 each PRN DAILY PRN MC SEE COMMENTS; Start 06/28/19 at 21:15; Status UNV Enoxaparin Sodium (Lovenox Per Pharmacy Treatment Dosing) 1 each PRN DAILY PRN MC SEE COMMENTS; Start 06/28/19 at 22:00; Stop 07/01/19 at 16:13; Status DC Enoxaparin Sodium (Lovenox 80mg Syringe) 80 mg Q24H SQ Last administered on 06/30/19at 21:00; Start 06/28/19 at 22:00; Stop 07/01/19 at 16:08; Status DC Enoxaparin Sodium (Lovenox Per Pharmacy Treatment Dosing) 1 each PRN DAILY PRN MC SEE COMMENTS; Start 06/28/19 at 22:00; Status UNV Guaifenesin (Robitussin Dm) 10 ml PRN Q6HRS PRN PO COUGH 1ST CHOICE Last administered on 07/04/19at 21:10; Start 06/29/19 at 07:45 Calcium Carbonate/ Glycine (Tums) 500 mg PRN AFTMEALHC PRN PO INDIGESTION Last administered on 07/02/19at 08:49; Start 06/29/19 at 07:45 Acetaminophen/ Hydrocodone Bitart (Lortab 5/325) 1 tab PRN Q4HRS PRN PO MODERATE-SEVERE PAIN Last administered on 06/30/19at 20:58; Start 06/29/19 at 07:45 Methylprednisolone Sodium Succinate (SOLU-Medrol 40MG VIAL) 40 mg Q8HRS IV Last administered on 06/30/19at 06:05; Start 06/29/19 at 08:30; Stop 06/30/19 at 08:33; Status DC Furosemide (Lasix) 40 mg DAILY IVP Last administered on 07/01/19at 08:40; Start 06/29/19 at 08:30; Stop 07/01/19 at 11:01; Status DC Lactobacillus Rhamnosus (Culturelle) 1 cap BID PO Last administered on 07/02/19at 08:50; Start 06/29/19 at 21:00; Stop 07/02/19 at 13:50; Status DC Polyethylene Glycol (miraLAX PACKET) 17 gm DAILY PO Last administered on 07/05/19at 09:27; Start 06/30/19 at 09:00 Polyethylene Glycol (miraLAX PACKET) 17 gm 1X ONCE PO Last administered on 06/29/19at 12:30; Start 06/29/19 at 11:00; Stop 06/29/19 at 11:01; Status DC Magnesium Hydroxide (Milk Of Magnesia) 2,400 mg 1X ONCE PO Last administered on 06/29/19at 12:29; Start 06/29/19 at 11:00; Stop 06/29/19 at 11:01; Status DC Magnesium Hydroxide (Milk Of Magnesia) 2,400 mg PRN DAILY PRN PO CONSTIPATION Last administered on 06/30/19at 15:08; Start 06/29/19 at 10:30 Bisacodyl (Dulcolax Supp) 10 mg PRN DAILY PRN NE CONSTIPATION Last administered on 06/30/19at 15:09; Start 06/29/19 at 10:30 Methylprednisolone Sodium Succinate (SOLU-Medrol 40MG VIAL) 40 mg Q12HR IV Last administered on 07/01/19at 08:41; Start 06/30/19 at 21:00; Stop 07/01/19 at 13:49; Status DC Darbepoetin Emmanuel (ARANESP for NON-DIALYSIS PTS) 60 mcg 1X ONCE SQ Last administered on 07/01/19at 11:11; Start 07/01/19 at 12:00; Stop 07/01/19 at 12:01; Status DC Furosemide (Lasix) 40 mg BID IVP Last administered on 07/01/19at 21:20; Start 07/01/19 at 11:00; Stop 07/02/19 at 12:12; Status DC Albuterol Sulfate (Ventolin Neb Soln) 2.5 mg 1X ONCE NEB ; Start 07/01/19 at 11:30; Stop 07/01/19 at 11:31; Status DC Albuterol/ Ipratropium (Duoneb) 3 ml RTQID NEB Last administered on 07/05/19at 10:53; Start 07/01/19 at 12:00 Info (Anti-Coagulation Monitoring By Pharmacy) 1 each PRN DAILY PRN MC SEE COMMENTS; Start 07/01/19 at 14:00 Hydralazine HCl (Apresoline) 50 mg TID PO Last administered on 07/01/19at 15:36; Start 07/01/19 at 15:15; Stop 07/01/19 at 15:56; Status DC Hydralazine HCl (Apresoline) 100 mg TID PO Last administered on 07/05/19at 09:30; Start 07/01/19 at 21:00 Apixaban (Eliquis) 5 mg BID PO Last administered on 07/05/19at 09:28; Start 07/01/19 at 21:00 Furosemide 100 mg/ Sodium Chloride 100 ml @ 5 mls/hr CONT PRN IV SEE I/O RECORD Last administered on 07/04/19at 19:10; Start 07/02/19 at 12:00 Hydralazine HCl (Apresoline Inj) 10 mg PRN Q4HRS PRN IVP ELEVATED BP, SEE COMMENTS Last administered on 07/04/19at 07:23; Start 07/03/19 at 08:30 Hydralazine HCl (Apresoline) 10 mg TID PO ; Start 07/03/19 at 09:00; Status Cancel Isosorbide Mononitrate (Imdur) 30 mg DAILY PO Last administered on 07/05/19at 09:29; Start 07/05/19 at 09:00 Active Scripts Active Lasix (Furosemide) 40 Mg Tablet 1 Tab PO DAILY 5 Days Guaifenesin 100 Mg/5 Ml Liquid 200 Mg PO PRN Q4HRS PRN 7 Days Ativan (Lorazepam) 0.5 Mg Tablet 0.5 Mg PO PRN Q4HRS PRN Hydrocodone-Apap 5-325 (Hydrocodone Bit/Acetaminophen) 1 Tab Tablet 1 Tab PO PRN Q4HRS PRN Amlodipine Besylate 10 Mg Tablet 10 Mg PO DAILY 30 Days Labetalol Hcl 200 Mg Tablet 300 Mg PO BID 30 Days Hydralazine Hcl 25 Mg Tablet 25 Mg PO TID 30 Days Clonidine Tts-2 (Clonidine) 1 Each Patch.tdwk 1 Patch TD WEEKLY 30 Days Reported Protonix (Pantoprazole Sodium) 40 Mg Tablet.dr 40 Mg PO DAILYAC Hydroxychloroquine Sulfate 200 Mg Tablet 200 Mg PO DAILY Multivitamins (Multivitamin) 1 Each Tablet 1 Tab PO DAILY Symbicort 160-4.5 Mcg Inhaler (Budesonide/Formoterol Fumarate) 10.2 Gm Hfa.aer.ad 1 Puff IH BID Spiriva (Tiotropium [place]) 18 Mcg Cap.w.dev 2 Inh IH DAILY Proair Hfa Inhaler (Albuterol Sulfate) 8.5 Gm Hfa.aer.ad 1 Puff INH PRN Q6HRS PRN Xarelto (Rivaroxaban) 10 Mg Tablet 10 Mg PO DAILY Atorvastatin Calcium 40 Mg Tablet 40 Mg PO HS Phoslo (Calcium Acetate) 667 Mg Capsule 1 Cap PO BIDWMEALS K-Tab ER (Potassium Chloride) 20 Meq Tablet.er 20 Meq PO DAILY Vitals/I & O Vital Sign - Last 24 Hours 07/04/19 07/04/19 07/04/19 07/04/19 14:07 15:00 15:19 17:51 Temp 97.5 97.5 Pulse 85 87 87 Resp 20 B/P (MAP) 138/80 174/87 (116) 174/87 Pulse Ox 98 100 O2 Delivery Nasal Cannula Nasal Cannula O2 Flow Rate 2.0 1.0 07/04/19 07/04/19 07/04/19 07/04/19 19:05 19:06 19:53 21:09 Temp 98.0 98.0 Pulse 95 91 Resp 18 B/P (MAP) 166/95 (118) 166/95 Pulse Ox 97 O2 Delivery Room Air Room Air Room Air 07/04/19 07/04/19 07/04/19 07/05/19 21:09 22:01 23:00 03:23 Temp 99.0 99.7 99.0 99.7 Pulse 91 94 99 98 Resp 18 18 B/P (MAP) 166/95 185/88 (120) 185/88 180/88 (118) Pulse Ox 95 94 O2 Delivery Room Air Room Air 07/05/19 07/05/19 07/05/19 07/05/19 07:00 07:02 09:28 09:29 Temp 98.1 98.1 Pulse 95 89 Resp 18 B/P (MAP) 186/92 (123) 165/86 Pulse Ox 97 97 O2 Delivery Room Air Room Air 07/05/19 07/05/19 07/05/19 07/05/19 09:29 09:30 10:54 11:00 Temp 98.0 98.0 Pulse 89 87 Resp 18 B/P (MAP) 165/86 165/86 160/81 (107) Pulse Ox 92 O2 Delivery Room Air Room Air Intake and Output 07/04/19 07/04/19 07/05/19 15:00 23:00 07:00 Intake Total 480 ml 360 ml 0 ml Output Total 900 ml 1100 ml 2450 ml Balance -420 ml -740 ml -2450 ml SHARA SHEEHAN MD Jul 05, 2019 11:48
[2019-07-05 15:00] VITALS: BP 149/80
--- NOTE | 2019-07-05 16:54 | PDOC ---
[employer] 07/05/19 1654: CARDIO Progress Notes Date and Time Date of Service 07/05/2019 Time of Evaluation 1610 Subjective Subjective: No Chest Pain, No shortness of breath, No Palpitations Vitals Vitals Vital Signs Date Time Temp Pulse Resp B/P (MAP) Pulse Ox O2 Delivery O2 Flow Rate FiO2 07/05/19 15:37 Room Air 07/05/19 15:00 98.0 78 18 149/80 (103) 98 98.0 07/04/19 15:19 1.0 Weight Weight [ ] Input and Output Intake and Output Intake and Output 07/05/19 07:00 Intake Total 840 ml Output Total 4450 ml Balance -3610 ml Intake Oral 780 ml IV Total 60 ml Output Urine Total 4450 ml # Bowel Movements 4 Laboratory Labs Laboratory Tests Test 07/05/19 04:00 Hemoglobin 7.3 g/dL (12.0-15.5) Hematocrit 22.4 % (36.0-47.0) Mean Corpuscular Hemoglobin Concent 33 g/dL (31-37) Sodium Level 146 mmol/L (136-145) Potassium Level 4.1 mmol/L (3.5-5.1) Chloride Level 109 mmol/L (98-107) Carbon Dioxide Level 28 mmol/L (21-32) Anion Gap 9 (6-14) Blood Urea Nitrogen 71 mg/dL (7-20) Creatinine 2.7 mg/dL (0.6-1.0) Estimated GFR (Cockcroft-Gault) 21.8 Glucose Level 98 mg/dL (70-99) Calcium Level 8.8 mg/dL (8.5-10.1) Phosphorus Level 4.1 mg/dL (2.6-4.7) Albumin 2.2 g/dL (3.4-5.0) Microbiology Micro Microbiology 06/28/19 Urine Culture - Final, Complete 06/28/19 Urine Culture Result 1 (JANINE) - Final, Complete 06/28/19 Blood Culture - Final, Complete NO GROWTH AFTER 5 DAYS Physical Exam HEENT: Neck Supple W Full Motion Chest: Symmetric LUNGS: Other (diminished bases) Heart: S1S2, RRR (SR), murmurs (3/6 systolic murmur to FRANTZ border) Abdomen: Soft N/T Extremities: Other (3+ bilateral LE edema ) Neurology: alert, oriented, follow commands Assessment Assessment 1. Acute respiratory failure with acute CHF, AECOPD, and anemia 2. Acute on chronic CHF; appears compensated 3. PAFIB: maintaining SR. 4. Malignant HTN: labile episodes 5. Hyperlipidemia; statin therapy 6. , mild 7. RIYA on CKD: Cr 2.7 remains uremic 8. COPD/moderate pulmonary HTN: stable 9. Anemia, chronic: Hgb 7.3 10. Hx of SLE and membranous nephropathy Recommendations 1. Lasix drip per nephrology. Down to 69Kg. Based on past wt. approximate euvolemic state was 62Kg. 2. Continue with current BP regimen. No ACEi/ARB at this time. Add imdur 3. Continue eliquis for stroke prevention 4. Supportive care. BRENDA RAY MD 07/05/192040: CARDIO Progress Notes Assessment Assessment Patient seen and examined. Agree with STONEMASON's assessment and plan. Acute on chronic diastolic HF much better compensated Continue diuretics per nephrology PAF maintaining sinus rhythm - continue eliquis for stroke prophylaxis CURTIS DOE APRN Jul 05, 2019 16:54 BRENDA RAY MD Jul 05, 2019 20:41
[2019-07-05] MEDS: FUROSEMIDE INJ 100 MG in IV NORMAL SALINE 100ML 100 ML IV PRN (17:22)
[2019-07-05 19:00] VITALS: BP 162/86
[2019-07-05] MEDS: ATORVASTATIN CALCIUM 40 MG TABLET. PO SCH (21:03)
[2019-07-05 23:29] VITALS: BP 161/85
[2019-07-06 03:30] VITALS: BP 149/76
[2019-07-06 04:52] LABS: ALBUMIN 2.1 g/dL (3.4-5.0); CALCIUM 8.7 mg/dL (8.5-10.1); CREATININE 2.7 mg/dL (0.6-1.0); GFR 21.8; PHOSPHORUS 3.9 mg/dL (2.6-4.7); POTASSIUM 4.2 mmol/L (3.5-5.1)
[2019-07-06 07:00] VITALS: BP 162/87
--- NOTE | 2019-07-06 07:06 | PDOC ---
PULMONARY PROGRESS NOTES Subjective on lasix gtt, sob better, no cp, no cough Vitals Vital Signs Date Time Temp Pulse Resp B/P (MAP) Pulse Ox O2 Delivery O2 Flow Rate FiO2 07/06/19 03:30 98.4 92 21 149/76 (100) 100 Room Air 98.4 ROS: No Nausea, No Chest Pain, No Abdominal Pain, No Increase Cough General: Alert HEENT: Other Lungs: Crackles Cardiovascular: S1, S2 Abdomen: Soft, Non-tender Neuro Exam: Alert, Oriented Extremities: Other (edema) Skin: Warm Labs Laboratory Tests Test 07/05/19 04:00 07/06/19 03:30 Hemoglobin 7.3 g/dL (12.0-15.5) Hematocrit 22.4 % (36.0-47.0) Mean Corpuscular Hemoglobin Concent 33 g/dL (31-37) Sodium Level 146 mmol/L (136-145) 144 mmol/L (136-145) Potassium Level 4.1 mmol/L (3.5-5.1) 4.2 mmol/L (3.5-5.1) Chloride Level 109 mmol/L (98-107) 108 mmol/L (98-107) Carbon Dioxide Level 28 mmol/L (21-32) 30 mmol/L (21-32) Anion Gap 9 (6-14) 6 (6-14) Blood Urea Nitrogen 71 mg/dL (7-20) 71 mg/dL (7-20) Creatinine 2.7 mg/dL (0.6-1.0) 2.7 mg/dL (0.6-1.0) Estimated GFR (Cockcroft-Gault) 21.8 21.8 Glucose Level 98 mg/dL (70-99) 102 mg/dL (70-99) Calcium Level 8.8 mg/dL (8.5-10.1) 8.7 mg/dL (8.5-10.1) Phosphorus Level 4.1 mg/dL (2.6-4.7) 3.9 mg/dL (2.6-4.7) Albumin 2.2 g/dL (3.4-5.0) 2.1 g/dL (3.4-5.0) Laboratory Tests Test 07/06/19 03:30 Sodium Level 144 mmol/L (136-145) Potassium Level 4.2 mmol/L (3.5-5.1) Chloride Level 108 mmol/L (98-107) Carbon Dioxide Level 30 mmol/L (21-32) Anion Gap 6 (6-14) Blood Urea Nitrogen 71 mg/dL (7-20) Creatinine 2.7 mg/dL (0.6-1.0) Estimated GFR (Cockcroft-Gault) 21.8 Glucose Level 102 mg/dL (70-99) Calcium Level 8.7 mg/dL (8.5-10.1) Phosphorus Level 3.9 mg/dL (2.6-4.7) Albumin 2.1 g/dL (3.4-5.0) Medications Active Scripts Medications Dose Route/Sig Max Daily Dose Days Date Category Amlodipine Besylate 10 Mg Tablet 10 Mg PO DAILY 30 06/13/19 Rx Labetalol Hcl 200 Mg Tablet 300 Mg PO BID 30 06/13/19 Rx Hydralazine Hcl 25 Mg Tablet 25 Mg PO TID 06/13/19 Rx Clonidine Tts-2 (Clonidine) 1 Each Patch.tdwk 1 Patch TD WEEKLY 06/13/19 Rx Protonix (Pantoprazole Sodium) 40 Mg Tablet.dr 40 Mg PO DAILYAC 06/05/19 Reported Hydroxychloroquine Sulfate 200 Mg Tablet 200 Mg PO DAILY 06/05/19 Reported Multivitamins (Multivitamin) 1 Each Tablet 1 Tab PO DAILY 06/05/19 Reported Symbicort 160-4.5 Mcg Inhaler (Budesonide/Formoterol Fumarate) 10.2 Gm Hfa.aer.ad 1 Puff IH BID 12/13/18 Reported Spiriva (Tiotropium [place]) 18 Mcg Cap.w.dev 2 Inh IH DAILY 12/13/18 Reported Proair Hfa Inhaler (Albuterol Sulfate) 8.5 Gm Hfa.aer.ad 1 Puff INH PRN Q6HRS PRN 12/13/18 Reported Xarelto (Rivaroxaban) 10 Mg Tablet 10 Mg PO DAILY 12/13/18 Reported Atorvastatin Calcium 40 Mg Tablet 40 Mg PO HS 12/13/18 Reported Phoslo (Calcium Acetate) 667 Mg Capsule 1 Cap PO BIDWMEALS 06/11/14 Reported K-Tab ER (Potassium Chloride) 20 Meq Tablet.er 20 Meq PO DAILY 10/10/14 Reported Impression . IMPRESSION: 1. Acute respiratory failure SUSPECT MOSTLY CHF 2. Abnormal chest x-ray. 3. Acute exacerbation of chronic obstructive pulmonary disease. 4. Acute diastolic congestive heart failure. 5. Chronic kidney disease. 6. Ex-smoker. 7. Paroxysmal atrial fibrillation. 8. History of pulmonary embolism. 9. Anemia. 10. Hypertension. 11. LOWE EXT VENOUS DOPPLER NEGATIVE Plan . ON LASIX DRIP PER NEPHRO, monitor k, cr cont BD WILL CONTINUE THE SAME DOUBT PE CLINICAL SUSPICION IS LOW DEFER ANTIBX USE TO ID ON ANTICOUGULATION FOR AF 6 min walk at dc discussed w rn, pt JUAN M NAPOLES MD Jul 06, 2019 07:06
[2019-07-06] MEDS: IPRATRPIUM/ALBUTEROL 0.5/2.5MG 3 ML NEBU. NEB SCH ×4 (07:24→20:34)
[2019-07-06] MEDS: BUDESONIDE 0.5 MG/2 ML NEBU. NEB SCH ×2 (07:24→20:34)
[2019-07-06] MEDS: PANTOPRAZOLE 40 MG TABLET.DR. PO SCH (08:00)
[2019-07-06] MEDS: POLYETHYLENE GLYCOL 3350 17 GM PACKET. PO SCH (08:02)
[2019-07-06] MEDS: CALCIUM ACETATE 667 MG CAPSULE PO SCH ×2 (08:03→17:15)
[2019-07-06] MEDS: LABETALOL HCL 100 MG TABLET. PO SCH ×2 (08:03→21:09)
[2019-07-06] MEDS: ISOSORBIDE MONONITRATE ER 30 MG TAB.ER.24H PO SCH (08:03)
[2019-07-06] MEDS: amLODIPine BESYLATE 10 MG TABLET PO SCH (08:04)
[2019-07-06] MEDS: APIXABAN 5 MG TABLET. PO SCH ×2 (08:04→21:09)
[2019-07-06] MEDS: POTASSIUM CHLORIDE 20 MEQ TABLET.ER. PO SCH (08:04)
[2019-07-06] MEDS: HYDROXYCHLOROQUINE 200 MG TABLET PO SCH (08:05)
[2019-07-06] MEDS: MULTIVITAMIN with MINERAL TABLET. PO SCH (08:06)
--- NOTE | 2019-07-06 10:17 | PDOC ---
PROGRESS NOTES Chief Complaint Chief Complaint 1. Acute respiratory failure, multifactorial in etiology including acute diastolic congestive heart failure, acute exacerbation of chronic obstructive pulmonary disease? thromboembolic disease versus others. 2. Abnormal chest x-ray. 3. Acute exacerbation of chronic obstructive pulmonary disease. 4. Acute diastolic congestive heart failure. 5. Chronic kidney disease. 6. Ex-smoker. 7. Paroxysmal atrial fibrillation. 8. History of pulmonary embolism. 9. Anemia. 10. Hypertension. 11. Acute precip drop hgb - likely sec to CKD 12. NOrmocytic, chronic anemia 13. MEt enceph 14. LEg edema History of Present Illness History of Present Illness DAY 4 lasix gtt, doing well, legs better, lytes holding CREat 2.7 AND STABLE hgb stable 7,.7 - positive BM NO inc in SOA Still some leg edema, but way better Came from pplace BP high side PLAN: No need for bT, hgb stable at 7,7 COnt lasix gtt per renAl, lytes are holding PPLAce monday on hydralazine 100 TID PO [place] cath inserted 07/12 bec of lasix gtt - ok to renew pplace on dc, only has limited SNU days left per SW - i told this to pt dw her and aide at bedside Vitals Vitals Vital Signs Date Time Temp Pulse Resp B/P (MAP) Pulse Ox O2 Delivery O2 Flow Rate FiO2 07/06/19 08:05 90 162/87 07/06/19 07:37 98 Nasal Cannula 1.0 07/06/19 07:00 98.6 18 98.6 Physical Exam Physical Exam GENERAL: Propped up in chair and alert HEENT: Pupils equally round. Oropharynx pink and moist. NECK: Supple. LUNGS: CTA HEART: S1, S2. Murmur present. ABDOMEN: Soft, nontender with bowel sounds present. EXTREMITIES: Pedal edema bilaterally. No cyanosis. SKIN: Warm to touch. No signs of rash. NEUROLOGIC: Alert, answers questions appropriately PIV General: mild distress Heart: Regular rate Lungs: Crackles Abdomen: Normal bowel sounds Extremities: No cyanosis, Other (plus 2-3 edema) Skin: No rashes, No breakdown Labs LABS Laboratory Tests Test 07/06/19 03:30 Sodium Level 144 mmol/L (136-145) Potassium Level 4.2 mmol/L (3.5-5.1) Chloride Level 108 mmol/L (98-107) Carbon Dioxide Level 30 mmol/L (21-32) Anion Gap 6 (6-14) Blood Urea Nitrogen 71 mg/dL (7-20) Creatinine 2.7 mg/dL (0.6-1.0) Estimated GFR (Cockcroft-Gault) 21.8 Glucose Level 102 mg/dL (70-99) Calcium Level 8.7 mg/dL (8.5-10.1) Phosphorus Level 3.9 mg/dL (2.6-4.7) Albumin 2.1 g/dL (3.4-5.0) Review of Systems Review of Systems neg 14 pt Assessment and Plan Assessmemt and Plan Problems Medical Problems: (1) Acute exacerbation of CHF (congestive heart failure) Status: Acute (2) Shortness of breath Status: Acute Comment Review of Relevant I have reviewed the following items gregorio (where applicable) has been applied. Labs Laboratory Tests Test 07/05/19 04:00 07/06/19 03:30 Hemoglobin 7.3 g/dL (12.0-15.5) Hematocrit 22.4 % (36.0-47.0) Mean Corpuscular Hemoglobin Concent 33 g/dL (31-37) Sodium Level 146 mmol/L (136-145) 144 mmol/L (136-145) Potassium Level 4.1 mmol/L (3.5-5.1) 4.2 mmol/L (3.5-5.1) Chloride Level 109 mmol/L (98-107) 108 mmol/L (98-107) Carbon Dioxide Level 28 mmol/L (21-32) 30 mmol/L (21-32) Anion Gap 9 (6-14) 6 (6-14) Blood Urea Nitrogen 71 mg/dL (7-20) 71 mg/dL (7-20) Creatinine 2.7 mg/dL (0.6-1.0) 2.7 mg/dL (0.6-1.0) Estimated GFR (Cockcroft-Gault) 21.8 21.8 Glucose Level 98 mg/dL (70-99) 102 mg/dL (70-99) Calcium Level 8.8 mg/dL (8.5-10.1) 8.7 mg/dL (8.5-10.1) Phosphorus Level 4.1 mg/dL (2.6-4.7) 3.9 mg/dL (2.6-4.7) Albumin 2.2 g/dL (3.4-5.0) 2.1 g/dL (3.4-5.0) Laboratory Tests Test 07/06/19 03:30 Sodium Level 144 mmol/L (136-145) Potassium Level 4.2 mmol/L (3.5-5.1) Chloride Level 108 mmol/L (98-107) Carbon Dioxide Level 30 mmol/L (21-32) Anion Gap 6 (6-14) Blood Urea Nitrogen 71 mg/dL (7-20) Creatinine 2.7 mg/dL (0.6-1.0) Estimated GFR (Cockcroft-Gault) 21.8 Glucose Level 102 mg/dL (70-99) Calcium Level 8.7 mg/dL (8.5-10.1) Phosphorus Level 3.9 mg/dL (2.6-4.7) Albumin 2.1 g/dL (3.4-5.0) Microbiology 06/28/19 Urine Culture - Final, Complete 06/28/19 Urine Culture Result 1 (JANINE) - Final, Complete 06/28/19 Blood Culture - Final, Complete NO GROWTH AFTER 5 DAYS Medications Current Medications Albuterol/ Ipratropium (Duoneb) 3 ml 1X ONCE NEB Last administered on 06/28/19at 12:30; Start 06/28/19 at 12:30; Stop 06/28/19 at 12:31; Status DC Piperacillin Sod/ Tazobactam Sod 3.375 gm/Sodium Chloride 50 ml @ 100 mls/hr Q6HRS IV Last administered on 07/01/19at 11:11; Start 06/29/19 at 00:00; Stop 07/01/19 at 15:08; Status DC Piperacillin Sod/ Tazobactam Sod 3.375 gm/Sodium Chloride 50 ml @ 100 mls/hr 1X ONCE IV Last administered on 06/28/19at 15:21; Start 06/28/19 at 14:30; Stop 06/28/19 at 14:59; Status DC Albuterol Sulfate (Ventolin Neb Soln) 2.5 mg PRN Q6HRS PRN INH SHORTNESS OF BREATH Last administered on 07/02/19at 05:05; Start 06/28/19 at 15:00 Amlodipine Besylate (Norvasc) 10 mg DAILY PO Last administered on 07/06/19 08:04; Start 06/28/19 at 15:00 Atorvastatin Calcium (Lipitor) 40 mg HS PO Last administered on 07/05/19 21:03; Start 06/28/19 at 21:00 Calcium Acetate (Phoslo) 667 mg BIDWMEALS PO Last administered on 07/06/19 08 :03; Start 06/28/19 at 17:00 Clonidine HCl (Catapres Tts-2) 1 patch WEEKLY TD Last administered on 07/05/19 09:38; Start 07/05/19 at 09:00 Hydralazine HCl (Apresoline) 25 mg TID PO Last administered on 07/01/19 08:38; Start 06/28/19 at 15:00; Stop 07/01/19 at 15:16; Status DC Hydroxychloroquine Sulfate (Plaquenil) 200 mg DAILY PO Last administered on 07/06/19 08:05; Start 06/28/19 at 15:00 Labetalol HCl (Trandate) 300 mg BID PO Last administered on 07/06/19 08:03; Start 06/28/19 at 21:00 Pantoprazole Sodium (Protonix) 40 mg DAILYAC PO Last administered on 07/06/19 08:00; Start 06/29/19 at 07:30 Rivaroxaban (Xarelto) 10 mg DAILY PO ; Start 06/28/19 at 21:30; Stop 06/28/19 at 21:55; Status DC Budesonide (Pulmicort) 0.5 mg RTBID NEB Last administered on 07/06/19 07:24; Start 06/28/19 at 20:00 Multivitamins (Thera M Plus) 1 tab DAILY PO Last administered on 07/06/19 08:06; Start 06/29/19 at 09:00 Potassium Chloride (Klor-Con) 20 meq DAILYWBKFT PO Last administered on 07/06/19 08:04; Start 06/29/19 at 08:00 Albuterol/ Ipratropium (Duoneb) 3 ml RTQID NEB ; Start 06/28/19 at 16:00; Stop 06/28/19 at 15:16; Status DC Linezolid/Dextrose 300 ml @ 300 mls/hr Q12HR IV Last administered on 07/01/19at 08:41; Start 06/28/19 at 15:30; Stop 07/01/19 at 15:08; Status DC Sodium Chloride (Normal Saline Flush) 3 ml QSHIFT PRN IV AFTER MEDS AND BLOOD DRAWS; Start 06/28/19 at 15:15 Sodium Chloride 1,000 ml @ 100 mls/hr Q10H IV ; Start 06/28/19 at 15:08; Stop 06/28/19 at 15:39; Status DC Ondansetron HCl (Zofran) 4 mg PRN Q4HRS PRN IV NAUSEA/VOMITING; Start 06/28/19 at 15:15 Acetaminophen (Tylenol) 650 mg PRN Q4HRS PRN PO TEMP OVER 100.4F OR MILD PAIN Last administered on 07/05/19at 21:05; Start 06/28/19 at 15:15 Clonidine HCl (Catapres) 0.1 mg PRN Q6HRS PRN PO SBP>160 OR DBP>90 Last administered on 07/04/19at 23:00; Start 06/28/19 at 15:15 Docusate Sodium (Colace) 100 mg PRN BID PRN PO HARD STOOLS Last administered on 07/01/19at 21:21; Start 06/28/19 at 15:15 Albuterol/ Ipratropium (Duoneb) 3 ml Q4HRS NEB Last administered on 07/01/19at 07:38; Start 06/28/19 at 16:00; Stop 07/01/19 at 11:20; Status DC Guaifenesin (Robitussin) 200 mg PRN Q4HRS PRN PO COUGH Last administered on 07/01/19 21:19; Start 06/28/19 at 15:15 Lorazepam (Ativan) 0.5 mg PRN Q4HRS PRN PO ANXIETY / AGITATION; Start 06/28/19 at 15:15 Furosemide (Lasix) 40 mg 1X ONCE IVP Last administered on 06/28/19at 15:45; Start 06/28/19 at 16:00; Stop 06/28/19 at 16:01; Status DC Enoxaparin Sodium (Lovenox Per Pharmacy Treatment Dosing) 1 each PRN DAILY PRN MC SEE COMMENTS; Start 06/28/19 at 21:15; Status UNV Enoxaparin Sodium (Lovenox Per Pharmacy Treatment Dosing) 1 each PRN DAILY PRN MC SEE COMMENTS; Start 06/28/19 at 22:00; Stop 07/01/19 at 16:13; Status DC Enoxaparin Sodium (Lovenox 80mg Syringe) 80 mg Q24H SQ Last administered on 06/30/19at 21:00; Start 06/28/19 at 22:00; Stop 07/01/19 at 16:08; Status DC Enoxaparin Sodium (Lovenox Per Pharmacy Treatment Dosing) 1 each PRN DAILY PRN MC SEE COMMENTS; Start 06/28/19 at 22:00; Status UNV Guaifenesin (Robitussin Dm) 10 ml PRN Q6HRS PRN PO COUGH 1ST CHOICE Last administered on 07/04/19at 21:10; Start 06/29/19 at 07:45 Calcium Carbonate/ Glycine (Tums) 500 mg PRN AFTMEALHC PRN PO INDIGESTION Last administered on 07/02/19at 08:49; Start 06/29/19 at 07:45 Acetaminophen/ Hydrocodone Bitart (Lortab 5/325) 1 tab PRN Q4HRS PRN PO MODERATE-SEVERE PAIN Last administered on 06/30/19at 20:58; Start 06/29/19 at 07:45 Methylprednisolone Sodium Succinate (SOLU-Medrol 40MG VIAL) 40 mg Q8HRS IV Last administered on 06/30/19at 06:05; Start 06/29/19 at 08:30; Stop 06/30/19 at 08:33; Status DC Furosemide (Lasix) 40 mg DAILY IVP Last administered on 07/01/19at 08:40; Start 06/29/19 at 08:30; Stop 07/01/19 at 11:01; Status DC Lactobacillus Rhamnosus (Culturelle) 1 cap BID PO Last administered on 07/02/19at 08:50; Start 06/29/19 at 21:00; Stop 07/02/19 at 13:50; Status DC Polyethylene Glycol (miraLAX PACKET) 17 gm DAILY PO Last administered on 07/06/19at 08:02; Start 06/30/19 at 09:00 Polyethylene Glycol (miraLAX PACKET) 17 gm 1X ONCE PO Last administered on 06/29/19at 12:30; Start 06/29/19 at 11:00; Stop 06/29/19 at 11:01; Status DC Magnesium Hydroxide (Milk Of Magnesia) 2,400 mg 1X ONCE PO Last administered on 06/29/19at 12:29; Start 06/29/19 at 11:00; Stop 06/29/19 at 11:01; Status DC Magnesium Hydroxide (Milk Of Magnesia) 2,400 mg PRN DAILY PRN PO CONSTIPATION Last administered on 06/30/19at 15:08; Start 06/29/19 at 10:30 Bisacodyl (Dulcolax Supp) 10 mg PRN DAILY PRN MD CONSTIPATION Last administered on 06/30/19at 15:09; Start 06/29/19 at 10:30 Methylprednisolone Sodium Succinate (SOLU-Medrol 40MG VIAL) 40 mg Q12HR IV Last administered on 07/01/19at 08:41; Start 06/30/19 at 21:00; Stop 07/01/19 at 13:49; Status DC Darbepoetin Emmanuel (ARANESP for NON-DIALYSIS PTS) 60 mcg 1X ONCE SQ Last administered on 07/01/19at 11:11; Start 07/01/19 at 12:00; Stop 07/01/19 at 12:01; Status DC Furosemide (Lasix) 40 mg BID IVP Last administered on 07/01/19at 21:20; Start 07/01/19 at 11:00; Stop 07/02/19 at 12:12; Status DC Albuterol Sulfate (Ventolin Neb Soln) 2.5 mg 1X ONCE NEB ; Start 07/01/19 at 11:30; Stop 07/01/19 at 11:31; Status DC Albuterol/ Ipratropium (Duoneb) 3 ml RTQID NEB Last administered on 07/06/19at 07:24; Start 07/01/19 at 12:00 Info (Anti-Coagulation Monitoring By Pharmacy) 1 each PRN DAILY PRN MC SEE COMMENTS; Start 07/01/19 at 14:00 Hydralazine HCl (Apresoline) 50 mg TID PO Last administered on 07/01/19at 15:36; Start 07/01/19 at 15:15; Stop 07/01/19 at 15:56; Status DC Hydralazine HCl (Apresoline) 100 mg TID PO Last administered on 07/06/19at 08:05; Start 07/01/19 at 21:00 Apixaban (Eliquis) 5 mg BID PO Last administered on 07/06/19at 08:04; Start 07/01/19 at 21:00 Furosemide 100 mg/ Sodium Chloride 100 ml @ 5 mls/hr CONT PRN IV SEE I/O RECORD Last administered on 07/05/19at 17:22; Start 07/02/19 at 12:00 Hydralazine HCl (Apresoline Inj) 10 mg PRN Q4HRS PRN IVP ELEVATED BP, SEE COMMENTS Last administered on 07/04/19at 07:23; Start 07/03/19 at 08:30 Hydralazine HCl (Apresoline) 10 mg TID PO ; Start 07/03/19 at 09:00; Status Cancel Isosorbide Mononitrate (Imdur) 30 mg DAILY PO Last administered on 07/06/19at 08:03; Start 07/05/19 at 09:00 Active Scripts Active Lasix (Furosemide) 40 Mg Tablet 1 Tab PO DAILY 5 Days Guaifenesin 100 Mg/5 Ml Liquid 200 Mg PO PRN Q4HRS PRN 7 Days Ativan (Lorazepam) 0.5 Mg Tablet 0.5 Mg PO PRN Q4HRS PRN Hydrocodone-Apap 5-325 (Hydrocodone Bit/Acetaminophen) 1 Tab Tablet 1 Tab PO PRN Q4HRS PRN Amlodipine Besylate 10 Mg Tablet 10 Mg PO DAILY 30 Days Labetalol Hcl 200 Mg Tablet 300 Mg PO BID 30 Days Hydralazine Hcl 25 Mg Tablet 25 Mg PO TID 30 Days Clonidine Tts-2 (Clonidine) 1 Each Patch.tdwk 1 Patch TD WEEKLY 30 Days Reported Protonix (Pantoprazole Sodium) 40 Mg Tablet.dr 40 Mg PO DAILYAC Hydroxychloroquine Sulfate 200 Mg Tablet 200 Mg PO DAILY Multivitamins (Multivitamin) 1 Each Tablet 1 Tab PO DAILY Symbicort 160-4.5 Mcg Inhaler (Budesonide/Formoterol Fumarate) 10.2 Gm Hfa.aer.ad 1 Puff IH BID Spiriva (Tiotropium [place]) 18 Mcg Cap.w.dev 2 Inh IH DAILY Proair Hfa Inhaler (Albuterol Sulfate) 8.5 Gm Hfa.aer.ad 1 Puff INH PRN Q6HRS PRN Xarelto (Rivaroxaban) 10 Mg Tablet 10 Mg PO DAILY Atorvastatin Calcium 40 Mg Tablet 40 Mg PO HS Phoslo (Calcium Acetate) 667 Mg Capsule 1 Cap PO BIDWMEALS K-Tab ER (Potassium Chloride) 20 Meq Tablet.er 20 Meq PO DAILY Vitals/I & O Vital Sign - Last 24 Hours 07/05/19 07/05/19 07/05/19 07/05/19 10:54 11:00 14:37 15:00 Temp 98.0 98.0 98.0 98.0 Pulse 87 78 Resp 18 18 B/P (MAP) 160/81 (107) 142/97 149/80 (103) Pulse Ox 92 98 O2 Delivery Room Air Room Air Room Air 07/05/19 07/05/19 07/05/19 07/05/19 15:37 19:00 19:48 19:50 Temp 98.6 98.6 Pulse 84 Resp 22 B/P (MAP) 162/86 (111) Pulse Ox 91 98 O2 Delivery Room Air Room Air Room Air Room Air 07/05/19 07/05/19 07/05/19 07/06/19 21:03 21:03 23:29 03:30 Temp 98.1 98.4 98.1 98.4 Pulse 84 84 94 92 Resp 20 21 B/P (MAP) 162/86 162/86 161/85 (110) 149/76 (100) Pulse Ox 91 100 O2 Delivery Room Air Room Air 07/06/19 07/06/19 07/06/19 07/06/19 07:00 07:27 07:30 07:37 Temp 98.6 98.6 Pulse 90 Resp 18 B/P (MAP) 162/87 (112) Pulse Ox 93 98 98 O2 Delivery Nasal Cannula Nasal Cannula Room Air Nasal Cannula O2 Flow Rate 2.0 1.0 1.0 07/06/19 07/06/19 07/06/19 07/06/19 08:03 08:03 08:04 08:05 Pulse 90 90 90 90 B/P (MAP) 162/87 162/87 162/87 162/87 Intake and Output 07/05/19 07/05/19 07/06/19 15:00 23:00 07:00 Output Total 1450 ml 1350 ml Balance -1450 ml -1350 ml SHARA SHEEHAN MD Jul 06, 2019 10:17
[2019-07-06 11:27] VITALS: BP 166/81
--- NOTE | 2019-07-06 13:49 | PDOC ---
SUBJECTIVE ROS No complaints OBJECTIVE Vital Signs Vital Signs Date Time Temp Pulse Resp B/P (MAP) Pulse Ox O2 Delivery O2 Flow Rate FiO2 07/06/19 11:43 Nasal Cannula 1.0 07/06/19 11:27 98.4 88 20 166/81 (109) 95 98.4 I & 0 Intake and Output 07/06/19 07:00 Output Total 2800 ml Balance -2800 ml Output Urine Total 2800 ml Stool Total 0 ml PHYSICAL EXAM Physical Exam General: No acute distress HEENT: On 02 by NC Neck Supple Lungs: Clear to auscultation, Non labored Heart: Regular rate, Normal S1, Normal S2, systolic murmur + Abdomen: Soft, No tenderness Extremities: LE edema ++ Skin: No rash Neuro: Grossly normal Psych/Mental Status: Mental status NL, Mood NL Has Rodríguez now DIAGNOSIS/ASSESSMENT Assessment & Plan RIYA- s/p cardiac Cath 06/07 renal function stable,diuresing well,Continue IV lasix drip E-Lytes , acid base no emergent indication for [employer] , supportive care, Monitor, LE edema- Significant , not her baseline, IV lasix drip- started 07/02 Negative venous Doppler of bilateral lower extremity Wt down,daily accurate standing weight, strict I/O CKD stage 3-Follows with our office, most recent appt with [facility] ATTORNEY in Apr Was admitted with Oct to [facility] , RIYA - ALIZA - renal function diidn't return to baseline Dced to PP Hypernatremia- resolved Respiratory distress- probable diastolic heart failure, possible pneumonia and an intermediate probability VQ scan for PE. On IV lasix drip Possible diastolic heart failure- mild aortic stenosis and elevated pulmonary artery pressures Atrial fibrillation. Chest Pain s/p cardiac Cath 06/07, Normal Membranous Nephropathy Dx in post Bx Proteinuria at Dx was 8 gm, improved most recent Pr/Cr <200 holding due to worsening renal function SLE- Use to follow with Rheumatology (Dr Hill) ,was on Imuran Currently only on Hydroxychloroquine Not seen for long time due to the financial constraints HTN- antihypertensives,BP better Renal Doppler - No Doppler evidence of greater than 60% stenosis within the renal arteries. Anemia-Follows with Dr. Baez as OP and was on Aranesp Tsat mildly low, would hold IV Fe until Infection resolves On SAUMYA, Monitor BP COMMENT/RELEVANT DATA Meds Current Medications Medications (Trade) Dose Ordered Sig/Blaine Start Time Stop Time Status Last Admin Dose Admin Acetaminophen (Tylenol) 650 mg PRN Q4HRS PRN 06/28/19 15:15 07/05/19 21:05 650 MG Acetaminophen/ Hydrocodone Bitart (Lortab 5/325) 1 tab PRN Q4HRS PRN 06/29/19 07:45 06/30/19 20:58 1 TAB Albuterol Sulfate (Ventolin Neb Soln) 2.5 mg 1X ONCE 07/01/19 11:30 07/01/19 11:31 DC Albuterol/ Ipratropium (Duoneb) 3 ml RTQID 07/01/19 12:00 07/06/19 11:42 3 ML Amlodipine Besylate (Norvasc) 10 mg DAILY 06/28/19 15:00 07/06/19 08:04 10 MG Apixaban (Eliquis) 5 mg BID 07/01/19 21:00 07/06/19 08:04 5 MG Atorvastatin Calcium (Lipitor) 40 mg HS 06/28/19 21:00 07/05/19 21:03 40 MG Bisacodyl (Dulcolax Supp) 10 mg PRN DAILY PRN 06/29/19 10:30 06/30/19 15:09 10 MG Budesonide (Pulmicort) 0.5 mg RTBID 06/28/19 20:00 07/06/19 07:24 0.5 MG Calcium Acetate (Phoslo) 667 mg BIDWMEALS 06/28/19 17:00 07/06/19 08:03 667 MG Calcium Carbonate/ Glycine (Tums) 500 mg PRN AFTMEALHC PRN 06/29/19 07:45 07/02/19 08:49 500 MG Clonidine HCl (Catapres Tts-2) 1 patch WEEKLY 07/05/19 09:00 07/05/19 09:38 1 PATCH Clonidine HCl (Catapres) 0.1 mg PRN Q6HRS PRN 06/28/19 15:15 07/04/19 23:00 0.1 MG Darbepoetin Emmanuel (ARANESP for NON-DIALYSIS PTS) 60 mcg 1X ONCE 07/01/19 12:00 07/01/19 12:01 DC 07/01/19 11:11 60 MCG Docusate Sodium (Colace) 100 mg PRN BID PRN 06/28/19 15:15 07/01/19 21:21 100 MG Enoxaparin Sodium (Lovenox 80mg Syringe) 80 mg Q24H 06/28/19 22:00 07/01/19 16:08 DC 06/30/19 21:00 80 MG Enoxaparin Sodium (Lovenox Per Pharmacy Treatment Dosing) 1 each PRN DAILY PRN 06/28/19 22:00 UNV Furosemide (Lasix) 40 mg BID 07/01/19 11:00 07/02/19 12:12 DC 07/01/19 21:20 40 MG Furosemide 100 mg/ Sodium Chloride 100 ml @ 5 mls/hr CONT PRN 07/02/19 12:00 07/05/19 17:22 5 MLS/HR Guaifenesin (Robitussin Dm) 10 ml PRN Q6HRS PRN 06/29/19 07:45 07/04/19 21:10 10 ML Guaifenesin (Robitussin) 200 mg PRN Q4HRS PRN 06/28/19 15:15 07/01/19 21:19 200 MG Hydralazine HCl (Apresoline Inj) 10 mg PRN Q4HRS PRN 07/03/19 08:30 07/04/19 07:23 10 MG Hydralazine HCl (Apresoline) 10 mg TID 07/03/19 09:00 Cancel Hydroxychloroquine Sulfate (Plaquenil) 200 mg DAILY 06/28/19 15:00 07/06/19 08:05 200 MG Info (Anti-Coagulation Monitoring By Pharmacy) 1 each PRN DAILY PRN 07/01/19 14:00 Isosorbide Mononitrate (Imdur) 30 mg DAILY 07/05/19 09:00 07/06/19 08:03 30 MG Labetalol HCl (Trandate) 300 mg BID 06/28/19 21:00 07/06/19 08:03 300 MG Lactobacillus Rhamnosus (Culturelle) 1 cap BID 06/29/19 21:00 07/02/19 13:50 DC 07/02/19 08:50 1 CAP Linezolid/Dextrose 300 ml @ 300 mls/hr Q12HR 06/28/19 15:30 07/01/19 15:08 DC 07/01/19 08:41 300 MLS/HR Lorazepam (Ativan) 0.5 mg PRN Q4HRS PRN 06/28/19 15:15 Magnesium Hydroxide (Milk Of Magnesia) 2,400 mg PRN DAILY PRN 06/29/19 10:30 06/30/19 15:08 2,400 MG Methylprednisolone Sodium Succinate (SOLU-Medrol 40MG VIAL) 40 mg Q12HR 06/30/19 21:00 07/01/19 13:49 DC 07/01/19 08:41 40 MG Multivitamins (Thera M Plus) 1 tab DAILY 06/29/19 09:00 07/06/19 08:06 1 TAB Ondansetron HCl (Zofran) 4 mg PRN Q4HRS PRN 06/28/19 15:15 Pantoprazole Sodium (Protonix) 40 mg DAILYAC 06/29/19 07:30 07/06/19 08:00 40 MG Piperacillin Sod/ Tazobactam Sod 3.375 gm/Sodium Chloride 50 ml @ 100 mls/hr 1X ONCE 06/28/19 14:30 06/28/19 14:59 DC 06/28/19 15:21 100 MLS/HR Polyethylene Glycol (miraLAX PACKET) 17 gm 1X ONCE 06/29/19 11:00 06/29/19 11:01 DC 06/29/19 12:30 17 GM Potassium Chloride (Klor-Con) 20 meq [id number] 06/29/19 08:00 07/06/19 08:04 20 MEQ Rivaroxaban (Xarelto) 10 mg DAILY 06/28/19 21:30 06/28/19 21:55 DC Sodium Chloride 1,000 ml @ 100 mls/hr Q10H 06/28/19 15:08 06/28/19 15:39 DC Sodium Chloride (Normal Saline Flush) 3 ml QSHIFT PRN 06/28/19 15:15 Lab Laboratory Tests Test 07/06/19 03:30 Sodium Level 144 mmol/L (136-145) Potassium Level 4.2 mmol/L (3.5-5.1) Chloride Level 108 mmol/L (98-107) Carbon Dioxide Level 30 mmol/L (21-32) Anion Gap 6 (6-14) Blood Urea Nitrogen 71 mg/dL (7-20) Creatinine 2.7 mg/dL (0.6-1.0) Estimated GFR (Cockcroft-Gault) 21.8 Glucose Level 102 mg/dL (70-99) Calcium Level 8.7 mg/dL (8.5-10.1) Phosphorus Level 3.9 mg/dL (2.6-4.7) Albumin 2.1 g/dL (3.4-5.0) Results All relevant outside records, renal labs, imaging studies, telemetry/EKG's were reviewed. SHEILA CREWS MD Jul 06, 2019 13:49
[2019-07-06 15:00] VITALS: BP 165/80
--- NOTE | 2019-07-06 16:49 | PDOC ---
CARDIOLOGY PROGRESS NOTE SUBJECTIVE: No acute events overnight. Continues to have excellent urine output. OBJECTIVE: Vital Signs/I&O: Vital Signs Date Time Temp Pulse Resp B/P (MAP) Pulse Ox O2 Delivery O2 Flow Rate FiO2 07/06/19 15:42 Nasal Cannula 1.0 07/06/19 15:00 98.2 87 18 165/80 (108) 95 98.2 I & O 07/05/19 07/05/19 07/06/19 15:00 23:00 07:00 Output Total 1450 ml 1350 ml Balance -1450 ml -1350 ml Objective: Persistent 2+ lower ext edema Normal heart tones Alert and oriented 3 No abdominal distention CURRENT MEDICATIONS: Medications reviewed DIAGNOSTIC TESTING: Labs: Laboratory Tests 07/06/19 03:30 Laboratory Tests Test 07/06/19 03:30 Sodium Level 144 mmol/L (136-145) Potassium Level 4.2 mmol/L (3.5-5.1) Chloride Level 108 mmol/L (98-107) H Carbon Dioxide Level 30 mmol/L (21-32) Anion Gap 6 (6-14) Blood Urea Nitrogen 71 mg/dL (7-20) H Creatinine 2.7 mg/dL (0.6-1.0) H Estimated GFR (Cockcroft-Gault) 21.8 Glucose Level 102 mg/dL (70-99) H Calcium Level 8.7 mg/dL (8.5-10.1) Phosphorus Level 3.9 mg/dL (2.6-4.7) Albumin 2.1 g/dL (3.4-5.0) L ASSESSMENT: 1. Acute respiratory failure with acute CHF, AECOPD, and anemia 2. Acute on chronic CHF; appears compensated 3. PAFIB: maintaining SR. 4. Malignant HTN: labile episodes 5. Hyperlipidemia; statin therapy 6. , mild 7. RIYA on CKD: Cr 2.7 remains uremic 8. COPD/moderate pulmonary HTN: stable 9. Anemia, chronic: Hgb 7.3 10. Hx of SLE and membranous nephropathy PLAN: 1. Continue present meds. Currently in SR. ELISE KEVIN MD Jul 06, 2019 16:49
[2019-07-06] MEDS: FUROSEMIDE INJ 100 MG in IV NORMAL SALINE 100ML 100 ML IV PRN (17:15)
[2019-07-06 18:16] VITALS: BP 160/80
[2019-07-06] MEDS: ATORVASTATIN CALCIUM 40 MG TABLET. PO SCH (21:08)
[2019-07-06 23:30] VITALS: BP 169/82
[2019-07-07 03:00] VITALS: BP 162/82
[2019-07-07] MEDS: BUDESONIDE 0.5 MG/2 ML NEBU. NEB SCH ×2 (07:25→20:00)
[2019-07-07] MEDS: IPRATRPIUM/ALBUTEROL 0.5/2.5MG 3 ML NEBU. NEB SCH ×4 (07:25→20:00)
[2019-07-07 07:30] VITALS: BP 144/70
[2019-07-07] MEDS: CALCIUM ACETATE 667 MG CAPSULE PO SCH ×2 (09:14→17:38)
[2019-07-07] MEDS: PANTOPRAZOLE 40 MG TABLET.DR. PO SCH (09:14)
[2019-07-07] MEDS: POLYETHYLENE GLYCOL 3350 17 GM PACKET. PO SCH (09:14)
[2019-07-07] MEDS: APIXABAN 5 MG TABLET. PO SCH ×2 (09:15→22:34)
[2019-07-07] MEDS: ISOSORBIDE MONONITRATE ER 30 MG TAB.ER.24H PO SCH (09:15)
[2019-07-07] MEDS: POTASSIUM CHLORIDE 20 MEQ TABLET.ER. PO SCH (09:15)
[2019-07-07] MEDS: HYDROXYCHLOROQUINE 200 MG TABLET PO SCH (09:16)
[2019-07-07] MEDS: MULTIVITAMIN with MINERAL TABLET. PO SCH (09:16)
[2019-07-07] MEDS: amLODIPine BESYLATE 10 MG TABLET PO SCH (09:16)
[2019-07-07] MEDS: LABETALOL HCL 100 MG TABLET. PO SCH ×2 (09:16→22:34)
[2019-07-07 10:17] LABS: HEMATOCRIT 23.6 % (36.0-47.0); HEMOGLOBIN 7.7 g/dL (12.0-15.5)
--- NOTE | 2019-07-07 10:22 | PDOC ---
PROGRESS NOTES Chief Complaint Chief Complaint 1. Acute respiratory failure, multifactorial in etiology including acute diastolic congestive heart failure, acute exacerbation of chronic obstructive pulmonary disease? thromboembolic disease versus others. 2. Abnormal chest x-ray. 3. Acute exacerbation of chronic obstructive pulmonary disease. 4. Acute diastolic congestive heart failure. 5. Chronic kidney disease. 6. Ex-smoker. 7. Paroxysmal atrial fibrillation. 8. History of pulmonary embolism. 9. Anemia. 10. Hypertension. 11. Acute precip drop hgb - likely sec to CKD 12. NOrmocytic, chronic anemia 13. MEt enceph 14. LEg edema History of Present Illness History of Present Illness DAY 5 lasix gtt, doing well, legs better, lytes holding CREat 2.7 AND STABLE hgb stable 7,.7 - positive BM NO inc in SOA Still some leg edema, but way better Came from [facility]place BP high side PLAN: No need for bT, hgb stable at 7,7 COnt lasix gtt per renAl, lytes are holding PPLAce monday on hydralazine 100 TID PO Martinez cath inserted 07/12 bec of lasix gtt - ok to renew pplace on dc, only has limited SNU days left per SW - i told this to pt dw her and aide at bedside Vitals Vitals Vital Signs Date Time Temp Pulse Resp B/P (MAP) Pulse Ox O2 Delivery O2 Flow Rate FiO2 07/07/19 09:19 89 144/70 07/07/19 07:30 97.6 12 99 Nasal Cannula 2.0 97.6 Physical Exam Physical Exam GENERAL: Propped up in chair and alert HEENT: Pupils equally round. Oropharynx pink and moist. NECK: Supple. LUNGS: CTA HEART: S1, S2. Murmur present. ABDOMEN: Soft, nontender with bowel sounds present. EXTREMITIES: Pedal edema bilaterally. No cyanosis. SKIN: Warm to touch. No signs of rash. NEUROLOGIC: Alert, answers questions appropriately PIV General: mild distress Heart: Regular rate Lungs: Crackles Abdomen: Normal bowel sounds Extremities: No cyanosis, Other (plus 2-3 edema) Skin: No rashes, No breakdown Labs LABS Laboratory Tests Test 07/07/19 09:20 Hemoglobin 7.7 g/dL (12.0-15.5) Hematocrit 23.6 % (36.0-47.0) Mean Corpuscular Hemoglobin Concent 33 g/dL (31-37) Review of Systems Review of Systems asleep, i did not awaken Assessment and Plan Assessmemt and Plan Problems Medical Problems: (1) Acute exacerbation of CHF (congestive heart failure) Status: Acute (2) Shortness of breath Status: Acute Comment Review of Relevant I have reviewed the following items gregorio (where applicable) has been applied. Labs Laboratory Tests Test 07/06/19 03:30 07/07/19 09:20 Sodium Level 144 mmol/L (136-145) Potassium Level 4.2 mmol/L (3.5-5.1) Chloride Level 108 mmol/L (98-107) Carbon Dioxide Level 30 mmol/L (21-32) Anion Gap 6 (6-14) Blood Urea Nitrogen 71 mg/dL (7-20) Creatinine 2.7 mg/dL (0.6-1.0) Estimated GFR (Cockcroft-Gault) 21.8 Glucose Level 102 mg/dL (70-99) Calcium Level 8.7 mg/dL (8.5-10.1) Phosphorus Level 3.9 mg/dL (2.6-4.7) Albumin 2.1 g/dL (3.4-5.0) Hemoglobin 7.7 g/dL (12.0-15.5) Hematocrit 23.6 % (36.0-47.0) Mean Corpuscular Hemoglobin Concent 33 g/dL (31-37) Laboratory Tests Test 07/07/19 09:20 Hemoglobin 7.7 g/dL (12.0-15.5) Hematocrit 23.6 % (36.0-47.0) Mean Corpuscular Hemoglobin Concent 33 g/dL (31-37) Microbiology 06/28/19 Urine Culture - Final, Complete 06/28/19 Urine Culture Result 1 (JNAINE) - Final, Complete 06/28/19 Blood Culture - Final, Complete NO GROWTH AFTER 5 DAYS Medications Current Medications Albuterol/ Ipratropium (Duoneb) 3 ml 1X ONCE NEB Last administered on 06/28/19at 12:30; Start 06/28/19 at 12:30; Stop 06/28/19 at 12:31; Status DC Piperacillin Sod/ Tazobactam Sod 3.375 gm/Sodium Chloride 50 ml @ 100 mls/hr Q6HRS IV Last administered on 07/01/19 11:11; Start 06/29/19 at 00:00; Stop 07/01/19 at 15:08; Status DC Piperacillin Sod/ Tazobactam Sod 3.375 gm/Sodium Chloride 50 ml @ 100 mls/hr 1X ONCE IV Last administered on 06/28/19 15:21; Start 06/28/19 at 14:30; Stop 06/28/19 at 14:59; Status DC Albuterol Sulfate (Ventolin Neb Soln) 2.5 mg PRN Q6HRS PRN INH SHORTNESS OF BREATH Last administered on 07/02/19 05:05; Start 06/28/19 at 15:00 Amlodipine Besylate (Norvasc) 10 mg DAILY PO Last administered on 07/07/19 09:16; Start 06/28/19 at 15:00 Atorvastatin Calcium (Lipitor) 40 mg HS PO Last administered on 07/06/19 21:08; Start 06/28/19 at 21:00 Calcium Acetate (Phoslo) 667 mg BIDWMEALS PO Last administered on 07/07/19 09:14; Start 06/28/19 at 17:00 Clonidine HCl (Catapres Tts-2) 1 patch WEEKLY TD Last administered on 07/05/19 09:38; Start 07/05/19 at 09:00 Hydralazine HCl (Apresoline) 25 mg TID PO Last administered on 07/01/19 08:38; Start 06/28/19 at 15:00; Stop 07/01/19 at 15:16; Status DC Hydroxychloroquine Sulfate (Plaquenil) 200 mg DAILY PO Last administered on 07/07/19 09:16; Start 06/28/19 at 15:00 Labetalol HCl (Trandate) 300 mg BID PO Last administered on 07/07/19 09:16; Start 06/28/19 at 21:00 Pantoprazole Sodium (Protonix) 40 mg DAILYAC PO Last administered on 07/07/19 09:14; Start 06/29/19 at 07:30 Rivaroxaban (Xarelto) 10 mg DAILY PO ; Start 06/28/19 at 21:30; Stop 06/28/19 at 21:55; Status DC Budesonide (Pulmicort) 0.5 mg RTBID NEB Last administered on 07/07/19 07:25; Start 06/28/19 at 20:00 Multivitamins (Thera M Plus) 1 tab DAILY PO Last administered on 07/07/19 09:16; Start 06/29/19 at 09:00 Potassium Chloride (Klor-Con) 20 meq DAILYWBKFT PO Last administered on 07/07/19 09:15; Start 06/29/19 at 08:00 Albuterol/ Ipratropium (Duoneb) 3 ml RTQID NEB ; Start 06/28/19 at 16:00; Stop 06/28/19 at 15:16; Status DC Linezolid/Dextrose 300 ml @ 300 mls/hr Q12HR IV Last administered on 07/01/19 08:41; Start 06/28/19 at 15:30; Stop 07/01/19 at 15:08; Status DC Sodium Chloride (Normal Saline Flush) 3 ml QSHIFT PRN IV AFTER MEDS AND BLOOD DRAWS; Start 06/28/19 at 15:15 Sodium Chloride 1,000 ml @ 100 mls/hr Q10H IV ; Start 06/28/19 at 15:08; Stop 06/28/19 at 15:39; Status DC Ondansetron HCl (Zofran) 4 mg PRN Q4HRS PRN IV NAUSEA/VOMITING; Start 06/28/19 at 15:15 Acetaminophen (Tylenol) 650 mg PRN Q4HRS PRN PO TEMP OVER 100.4F OR MILD PAIN Last administered on 07/05/19 21:05; Start 06/28/19 at 15:15 Clonidine HCl (Catapres) 0.1 mg PRN Q6HRS PRN PO SBP>160 OR DBP>90 Last adm inistered on 07/04/19at 23:00; Start 06/28/19 at 15:15 Docusate Sodium (Colace) 100 mg PRN BID PRN PO HARD STOOLS Last administered on 07/01/19 21:21; Start 06/28/19 at 15:15 Albuterol/ Ipratropium (Duoneb) 3 ml Q4HRS NEB Last administered on 07/01/19at 07:38; Start 06/28/19 at 16:00; Stop 07/01/19 at 11:20; Status DC Guaifenesin (Robitussin) 200 mg PRN Q4HRS PRN PO COUGH Last administered on 07/01/19at 21:19; Start 06/28/19 at 15:15 Lorazepam (Ativan) 0.5 mg PRN Q4HRS PRN PO ANXIETY / AGITATION; Start 06/28/19 at 15:15 Furosemide (Lasix) 40 mg 1X ONCE IVP Last administered on 06/28/19at 15:45; Start 06/28/19 at 16:00; Stop 06/28/19 at 16:01; Status DC Enoxaparin Sodium (Lovenox Per Pharmacy Treatment Dosing) 1 each PRN DAILY PRN MC SEE COMMENTS; Start 06/28/19 at 21:15; Status UNV Enoxaparin Sodium (Lovenox Per Pharmacy Treatment Dosing) 1 each PRN DAILY PRN MC SEE COMMENTS; Start 06/28/19 at 22:00; Stop 07/01/19 at 16:13; Status DC Enoxaparin Sodium (Lovenox 80mg Syringe) 80 mg Q24H SQ Last administered on 06/30/19at 21:00; Start 06/28/19 at 22:00; Stop 07/01/19 at 16:08; Status DC Enoxaparin Sodium (Lovenox Per Pharmacy Treatment Dosing) 1 each PRN DAILY PRN MC SEE COMMENTS; Start 06/28/19 at 22:00; Status UNV Guaifenesin (Robitussin Dm) 10 ml PRN Q6HRS PRN PO COUGH 1ST CHOICE Last administered on 07/04/19at 21:10; Start 06/29/19 at 07:45 Calcium Carbonate/ Glycine (Tums) 500 mg PRN AFTMEALHC PRN PO INDIGESTION Last administered on 07/02/19at 08:49; Start 06/29/19 at 07:45 Acetaminophen/ Hydrocodone Bitart (Lortab 5/325) 1 tab PRN Q4HRS PRN PO MODERATE-SEVERE PAIN Last administered on 06/30/19at 20:58; Start 06/29/19 at 07:45 Methylprednisolone Sodium Succinate (SOLU-Medrol 40MG VIAL) 40 mg Q8HRS IV Last administered on 06/30/19at 06:05; Start 06/29/19 at 08:30; Stop 06/30/19 at 08:33; Status DC Furosemide (Lasix) 40 mg DAILY IVP Last administered on 07/01/19at 08:40; Start 06/29/19 at 08:30; Stop 07/01/19 at 11:01; Status DC Lactobacillus Rhamnosus (Culturelle) 1 cap BID PO Last administered on 07/02/19 08:50; Start 06/29/19 at 21:00; Stop 07/02/19 at 13:50; Status DC Polyethylene Glycol (miraLAX PACKET) 17 gm DAILY PO Last administered on 07/07/19 09:14; Start 06/30/19 at 09:00 Polyethylene Glycol (miraLAX PACKET) 17 gm 1X ONCE PO Last administered on 06/29/19at 12:30; Start 06/29/19 at 11:00; Stop 06/29/19 at 11:01; Status DC Magnesium Hydroxide (Milk Of Magnesia) 2,400 mg 1X ONCE PO Last administered on 06/29/19at 12:29; Start 06/29/19 at 11:00; Stop 06/29/19 at 11:01; Status DC Magnesium Hydroxide (Milk Of Magnesia) 2,400 mg PRN DAILY PRN PO CONSTIPATION Last administered on 06/30/19at 15:08; Start 06/29/19 at 10:30 Bisacodyl (Dulcolax Supp) 10 mg PRN DAILY PRN CA CONSTIPATION Last administered on 06/30/19at 15:09; Start 06/29/19 at 10:30 Methylprednisolone Sodium Succinate (SOLU-Medrol 40MG VIAL) 40 mg Q12HR IV Last administered on 07/01/19at 08:41; Start 06/30/19 at 21:00; Stop 07/01/19 at 13:49; Status DC Darbepoetin Emmanuel (ARANESP for NON-DIALYSIS PTS) 60 mcg 1X ONCE SQ Last administered on 07/01/19at 11:11; Start 07/01/19 at 12:00; Stop 07/01/19 at 12:01; Status DC Furosemide (Lasix) 40 mg BID IVP Last administered on 07/01/19 21:20; Start 07/01/19 at 11:00; Stop 07/02/19 at 12:12; Status DC Albuterol Sulfate (Ventolin Neb Soln) 2.5 mg 1X ONCE NEB ; Start 07/01/19 at 11:30; Stop 07/01/19 at 11:31; Status DC Albuterol/ Ipratropium (Duoneb) 3 ml RTQID NEB Last administered on 07/07/19at 07:25; Start 07/01/19 at 12:00 Info (Anti-Coagulation Monitoring By Pharmacy) 1 each PRN DAILY PRN MC SEE COMMENTS; Start 07/01/19 at 14:00 Hydralazine HCl (Apresoline) 50 mg TID PO Last administered on 07/01/19at 15:36; Start 07/01/19 at 15:15; Stop 07/01/19 at 15:56; Status DC Hydralazine HCl (Apresoline) 100 mg TID PO Last administered on 07/07/19 09:19; Start 07/01/19 at 21:00 Apixaban (Eliquis) 5 mg BID PO Last administered on 07/07/19 09:15; Start 07/01/19 at 21:00 Furosemide 100 mg/ Sodium Chloride 100 ml @ 5 mls/hr CONT PRN IV SEE I/O RECORD Last administered on 07/06/19at 17:15; Start 07/02/19 at 12:00 Hydralazine HCl (Apresoline Inj) 10 mg PRN Q4HRS PRN IVP ELEVATED BP, SEE COMMENTS Last administered on 07/04/19at 07:23; Start 07/03/19 at 08:30 Hydralazine HCl (Apresoline) 10 mg TID PO ; Start 07/03/19 at 09:00; Status Cancel Isosorbide Mononitrate (Imdur) 30 mg DAILY PO Last administered on 07/07/19 09:15; Start 07/05/19 at 09:00 Active Scripts Active Lasix (Furosemide) 40 Mg Tablet 1 Tab PO DAILY 5 Days Guaifenesin 100 Mg/5 Ml Liquid 200 Mg PO PRN Q4HRS PRN 7 Days Ativan (Lorazepam) 0.5 Mg Tablet 0.5 Mg PO PRN Q4HRS PRN Hydrocodone-Apap 5-325 (Hydrocodone Bit/Acetaminophen) 1 Tab Tablet 1 Tab PO PRN Q4HRS PRN Amlodipine Besylate 10 Mg Tablet 10 Mg PO DAILY 30 Days Labetalol Hcl 200 Mg Tablet 300 Mg PO BID 30 Days Hydralazine Hcl 25 Mg Tablet 25 Mg PO TID 30 Days Clonidine Tts-2 (Clonidine) 1 Each Patch.tdwk 1 Patch TD WEEKLY 30 Days Reported Protonix (Pantoprazole Sodium) 40 Mg Tablet.dr 40 Mg PO DAILYAC Hydroxychloroquine Sulfate 200 Mg Tablet 200 Mg PO DAILY Multivitamins (Multivitamin) 1 Each Tablet 1 Tab PO DAILY Symbicort 160-4.5 Mcg Inhaler (Budesonide/Formoterol Fumarate) 10.2 Gm Hfa.a er.ad 1 Puff IH BID Spiriva (Tiotropium [place]) 18 Mcg Cap.w.dev 2 Inh IH DAILY Proair Hfa Inhaler (Albuterol Sulfate) 8.5 Gm Hfa.aer.ad 1 Puff INH PRN Q6HRS PRN Xarelto (Rivaroxaban) 10 Mg Tablet 10 Mg PO DAILY Atorvastatin Calcium 40 Mg Tablet 40 Mg PO HS Phoslo (Calcium Acetate) 667 Mg Capsule 1 Cap PO BIDWMEALS K-Tab ER (Potassium Chloride) 20 Meq Tablet.er 20 Meq PO DAILY Vitals/I & O Vital Sign - Last 24 Hours 07/06/19 07/06/19 07/06/19 07/06/19 11:27 11:43 14:16 15:00 Temp 98.4 98.2 98.4 98.2 Pulse 88 88 87 Resp 20 18 B/P (MAP) 166/81 (109) 166/81 165/80 (108) Pulse Ox 95 95 O2 Delivery Nasal Cannula Nasal Cannula Nasal Cannula O2 Flow Rate 2.0 1.0 1.0 07/06/19 07/06/19 07/06/19 07/06/19 15:42 18:16 20:00 20:34 Temp 99.2 99.2 Pulse 93 Resp 18 B/P (MAP) 160/80 (106) Pulse Ox 94 O2 Delivery Nasal Cannula Nasal Cannula Room Air Nasal Cannula O2 Flow Rate 1.0 1.0 1.0 07/06/19 07/06/19 07/06/19 07/07/19 21:09 21:09 23:30 03:00 Temp 99.1 99.2 99.1 99.2 Pulse 93 93 94 88 Resp 20 18 B/P (MAP) 160/80 160/80 169/82 (111) 162/82 (108) Pulse Ox 98 O2 Delivery Nasal Cannula Nasal Cannula O2 Flow Rate 1.0 07/07/19 07/07/19 07/07/19 07/07/19 07:27 07:27 07:30 09:15 Temp 97.6 97.6 Pulse 89 84 Resp 12 B/P (MAP) 144/70 (94) 144/70 Pulse Ox 99 99 99 O2 Delivery Nasal Cannula Nasal Cannula Nasal Cannula O2 Flow Rate 1.0 1.0 2.0 07/07/19 07/07/19 07/07/19 09:16 09:16 09:19 Pulse 89 87 89 B/P (MAP) 144/70 144/70 Intake and Output 07/06/19 07/06/19 07/07/19 15:00 23:00 07:00 Intake Total 240 ml 60 ml 370 ml Output Total 900 ml 900 ml 1800 ml Balance -660 ml -840 ml -1430 ml SHARA SHEEHAN MD Jul 07, 2019 10:22
[2019-07-07 11:08] VITALS: BP 144/70
--- NOTE | 2019-07-07 12:06 | PDOC ---
SUBJECTIVE ROS No complaints OBJECTIVE Vital Signs Vital Signs Date Time Temp Pulse Resp B/P (MAP) Pulse Ox O2 Delivery O2 Flow Rate FiO2 07/07/19 11:20 Room Air 07/07/19 11:08 98.4 83 16 144/70 (94) 93 98.4 07/07/19 07:30 2.0 I & 0 Intake and Output 07/07/19 07:00 Intake Total 670 ml Output Total 3600 ml Balance -2930 ml Intake Oral 610 ml IV Total 60 ml Output Urine Total 3600 ml PHYSICAL EXAM Physical Exam General: No acute distress HEENT: On 02 by ANDREA Neck Supple Lungs: Clear to auscultation, Non labored Heart: Regular rate, Normal S1, Normal S2, systolic murmur + Abdomen: Soft, No tenderness Extremities: LE edema 3+ Skin: No rash Neuro: Grossly normal Psych/Mental Status: Mental status NL, Mood NL Has Rodríguez now DIAGNOSIS/ASSESSMENT Assessment & Plan RIYA-n s/p cardiac Cath 06/07 renal function stable -On IV lasix drip , No labs this am May be able to dc the drip in am, will re-eval E-Lytes , acid base 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 On IV lasix drip Possible diastolic heart failure- mild aortic stenosis and elevated pulmonary artery pressures Atrial fibrillation. Chest Pain s/p cardiac Cath 06/07, Normal Membranous Nephropathy Dx in post Bx Proteinuria at Dx was 8 gm, improved most recent Pr/Cr <200 holding due to worsening renal function SLE- Use to follow with Rheumatology (Dr Hill) ,was on Imuran Currently only on Hydroxychloroquine Not seen for long time due to the financial constraints HTN- antihypertensives BP better Renal Doppler - No Doppler evidence of greater than 60% stenosis within the renal arteries. Anemia-Follows with Dr. Baez as OP and was on Aranesp Tsat mildly low, On SAUMYA COMMENT/RELEVANT DATA Meds Current Medications Medications (Trade) Dose Ordered Sig/Blaine Start Time Stop Time Status Last Admin Dose Admin Acetaminophen (Tylenol) 650 mg PRN Q4HRS PRN 06/28/19 15:15 07/05/19 21:05 650 MG Acetaminophen/ Hydrocodone Bitart (Lortab 5/325) 1 tab PRN Q4HRS PRN 06/29/19 07:45 06/30/19 20:58 1 TAB Albuterol Sulfate (Ventolin Neb Soln) 2.5 mg 1X ONCE 07/01/19 11:30 07/01/19 11:31 DC Albuterol/ Ipratropium (Duoneb) 3 ml RTQID 07/01/19 12:00 07/07/19 11:20 3 ML Amlodipine Besylate (Norvasc) 10 mg DAILY 06/28/19 15:00 07/07/19 09:16 10 MG Apixaban (Eliquis) 5 mg BID 07/01/19 21:00 07/07/19 09:15 5 MG Atorvastatin Calcium (Lipitor) 40 mg HS 06/28/19 21:00 07/06/19 21:08 40 MG Bisacodyl (Dulcolax Supp) 10 mg PRN DAILY PRN 06/29/19 10:30 06/30/19 15:09 10 MG Budesonide (Pulmicort) 0.5 mg RTBID 06/28/19 20:00 07/07/19 07:25 0.5 MG Calcium Acetate (Phoslo) 667 mg BIDWMEALS 06/28/19 17:00 07/07/19 09:14 667 MG Calcium Carbonate/ Glycine (Tums) 500 mg PRN AFTMEALHC PRN 06/29/19 07:45 07/02/19 08:49 500 MG Clonidine HCl (Catapres Tts-2) 1 patch WEEKLY 07/05/19 09:00 07/05/19 09:38 1 PATCH Clonidine HCl (Catapres) 0.1 mg PRN Q6HRS PRN 06/28/19 15:15 07/04/19 23:00 0.1 MG Darbepoetin Emmanuel (ARANESP for NON-DIALYSIS PTS) 60 mcg 1X ONCE 07/01/19 12:00 07/01/19 12:01 DC 07/01/19 11:11 60 MCG Docusate Sodium (Colace) 100 mg PRN BID PRN 06/28/19 15:15 07/01/19 21:21 100 MG Enoxaparin Sodium (Lovenox 80mg Syringe) 80 mg Q24H 06/28/19 22:00 07/01/19 16:08 DC 06/30/19 21:00 80 MG Enoxaparin Sodium (Lovenox Per Pharmacy Treatment Dosing) 1 each PRN DAILY PRN 06/28/19 22:00 UNV Furosemide (Lasix) 40 mg BID 07/01/19 11:00 07/02/19 12:12 DC 07/01/19 21:20 40 MG Furosemide 100 mg/ Sodium Chloride 100 ml @ 5 mls/hr CONT PRN 07/02/19 12:00 07/06/19 17:15 5 MLS/HR Guaifenesin (Robitussin Dm) 10 ml PRN Q6HRS PRN 06/29/19 07:45 07/04/19 21:10 10 ML Guaifenesin (Robitussin) 200 mg PRN Q4HRS PRN 06/28/19 15:15 07/01/19 21:19 200 MG Hydralazine HCl (Apresoline Inj) 10 mg PRN Q4HRS PRN 07/03/19 08:30 07/04/19 07:23 10 MG Hydralazine HCl (Apresoline) 10 mg TID 07/03/19 09:00 Cancel Hydroxychloroquine Sulfate (Plaquenil) 200 mg DAILY 06/28/19 15:00 07/07/19 09:16 200 MG Info (Anti-Coagulation Monitoring By Pharmacy) 1 each PRN DAILY PRN 07/01/19 14:00 Isosorbide Mononitrate (Imdur) 30 mg DAILY 07/05/19 09:00 07/07/19 09:15 30 MG Labetalol HCl (Trandate) 300 mg BID 06/28/19 21:00 07/07/19 09:16 300 MG Lactobacillus Rhamnosus (Culturelle) 1 cap BID 06/29/19 21:00 07/02/19 13:50 DC 07/02/19 08:50 1 CAP Linezolid/Dextrose 300 ml @ 300 mls/hr Q12HR 06/28/19 15:30 07/01/19 15:08 DC 07/01/19 08:41 300 MLS/HR Lorazepam (Ativan) 0.5 mg PRN Q4HRS PRN 06/28/19 15:15 Magnesium Hydroxide (Milk Of Magnesia) 2,400 mg PRN DAILY PRN 06/29/19 10:30 06/30/19 15:08 2,400 MG Methylprednisolone Sodium Succinate (SOLU-Medrol 40MG VIAL) 40 mg Q12HR 06/30/19 21:00 07/01/19 13:49 DC 07/01/19 08:41 40 MG Multivitamins (Thera M Plus) 1 tab DAILY 06/29/19 09:00 07/07/19 09:16 1 TAB Ondansetron HCl (Zofran) 4 mg PRN Q4HRS PRN 06/28/19 15:15 Pantoprazole Sodium (Protonix) 40 mg DAILYAC 06/29/19 07:30 07/07/19 09:14 40 MG Piperacillin Sod/ Tazobactam Sod 3.375 gm/Sodium Chloride 50 ml @ 100 mls/hr 1X ONCE 06/28/19 14:30 06/28/19 14:59 DC 06/28/19 15:21 100 MLS/HR Polyethylene Glycol (miraLAX PACKET) 17 gm 1X ONCE 06/29/19 11:00 06/29/19 11:01 DC 06/29/19 12:30 17 GM Potassium Chloride (Klor-Con) 20 meq DAILYWBKFT 06/29/19 08:00 07/07/19 09:15 20 MEQ Rivaroxaban (Xarelto) 10 mg DAILY 06/28/19 21:30 06/28/19 21:55 DC Sodium Chloride 1,000 ml @ 100 mls/hr Q10H 06/28/19 15:08 06/28/19 15:39 DC Sodium Chloride (Normal Saline Flush) 3 ml QSHIFT PRN 06/28/19 15:15 Lab Laboratory Tests Test 07/07/19 09:20 Hemoglobin 7.7 g/dL (12.0-15.5) Hematocrit 23.6 % (36.0-47.0) Mean Corpuscular Hemoglobin Concent 33 g/dL (31-37) Results All relevant outside records, renal labs, imaging studies, telemetry/EKG's were reviewed. SHEILA CREWS MD Jul 07, 2019 12:06
[2019-07-07 14:39] VITALS: BP 134/74
--- NOTE | 2019-07-07 14:43 | PDOC ---
PULMONARY PROGRESS NOTES Subjective on lasix gtt, sob better, no cp, has occ cough Vitals Vital Signs Date Time Temp Pulse Resp B/P (MAP) Pulse Ox O2 Delivery O2 Flow Rate FiO2 07/07/19 14:39 98.4 84 16 134/74 (94) 93 Room Air 98.4 07/07/19 07:30 2.0 ROS: No Nausea, No Chest Pain, No Abdominal Pain, No Increase Cough General: Alert HEENT: Other Lungs: Crackles Cardiovascular: S1, S2 Abdomen: Soft, Non-tender Neuro Exam: Alert, Oriented Extremities: Other (edema) Skin: Warm Labs Laboratory Tests Test 07/06/19 03:30 07/07/19 09:20 Sodium Level 144 mmol/L (136-145) Potassium Level 4.2 mmol/L (3.5-5.1) Chloride Level 108 mmol/L (98-107) Carbon Dioxide Level 30 mmol/L (21-32) Anion Gap 6 (6-14) Blood Urea Nitrogen 71 mg/dL (7-20) Creatinine 2.7 mg/dL (0.6-1.0) Estimated GFR (Cockcroft-Gault) 21.8 Glucose Level 102 mg/dL (70-99) Calcium Level 8.7 mg/dL (8.5-10.1) Phosphorus Level 3.9 mg/dL (2.6-4.7) Albumin 2.1 g/dL (3.4-5.0) Hemoglobin 7.7 g/dL (12.0-15.5) Hematocrit 23.6 % (36.0-47.0) Mean Corpuscular Hemoglobin Concent 33 g/dL (31-37) Laboratory Tests Test 07/07/19 09:20 Hemoglobin 7.7 g/dL (12.0-15.5) Hematocrit 23.6 % (36.0-47.0) Mean Corpuscular Hemoglobin Concent 33 g/dL (31-37) Medications Active Scripts Medications Dose Route/Sig Max Daily Dose Days Date Category Amlodipine Besylate 10 Mg Tablet 10 Mg PO DAILY 06/13/19 Rx Labetalol Hcl 200 Mg Tablet 300 Mg PO BID 06/13/19 Rx Hydralazine Hcl 25 Mg Tablet 25 Mg PO TID 06/13/19 Rx Clonidine Tts-2 (Clonidine) 1 Each Patch.tdwk 1 Patch TD WEEKLY 30 06/13/19 Rx Protonix (Pantoprazole Sodium) 40 Mg Tablet.dr 40 Mg PO DAILYAC 06/05/19 Reported Hydroxychloroquine Sulfate 200 Mg Tablet 200 Mg PO DAILY 06/05/19 Reported Multivitamins (Multivitamin) 1 Each Tablet 1 Tab PO DAILY 06/05/19 Reported Symbicort 160-4.5 Mcg Inhaler (Budesonide/Formoterol Fumarate) 10.2 Gm Hfa.aer.ad 1 Puff IH BID 12/13/18 Reported Spiriva (Tiotropium [place]) 18 Mcg Cap.w.dev 2 Inh IH DAILY 12/13/18 Reported Proair Hfa Inhaler (Albuterol Sulfate) 8.5 Gm Hfa.aer.ad 1 Puff INH PRN Q6HRS PRN 12/13/18 Reported Xarelto (Rivaroxaban) 10 Mg Tablet 10 Mg PO DAILY 12/13/18 Reported Atorvastatin Calcium 40 Mg Tablet 40 Mg PO HS 12/13/18 Reported Phoslo (Calcium Acetate) 667 Mg Capsule 1 Cap PO BIDWMEALS 06/11/14 Reported K-Tab ER (Potassium Chloride) 20 Meq Tablet.er 20 Meq PO DAILY 05/23/14 Reported Impression . IMPRESSION: 1. Acute respiratory failure SUSPECT MOSTLY CHF 2. Abnormal chest x-ray. 3. Acute exacerbation of chronic obstructive pulmonary disease. 4. Acute diastolic congestive heart failure. 5. Chronic kidney disease. 6. Ex-smoker. 7. Paroxysmal atrial fibrillation. 8. History of pulmonary embolism. 9. Anemia. 10. Hypertension. 11. LOWE EXT VENOUS DOPPLER NEGATIVE Plan . ON LASIX DRIP PER NEPHRO, monitor k, cr cont BD WILL CONTINUE THE SAME DOUBT PE CLINICAL SUSPICION IS LOW ON ANTICOUGULATION FOR AF 6 min walk at dc discussed w rn, pt JUAN M NAPOLES MD Jul 07, 2019 14:42
[2019-07-07] MEDS: FUROSEMIDE INJ 100 MG in IV NORMAL SALINE 100ML 100 ML IV PRN (15:57)
[2019-07-07 19:20] VITALS: BP 140/76
[2019-07-07] MEDS: ATORVASTATIN CALCIUM 40 MG TABLET. PO SCH (22:35)
[2019-07-07] MEDS: ACETAMINOPHEN 325 MG TABLET. PO PRN (22:36)
[2019-07-07 22:50] VITALS: BP 159/85
[2019-07-08 03:50] VITALS: BP 171/89
[2019-07-08 03:58] LABS: ALBUMIN 2.2 g/dL (3.4-5.0); CALCIUM 9.1 mg/dL (8.5-10.1); CREATININE 2.8 mg/dL (0.6-1.0); GFR 20.9; PHOSPHORUS 4.2 mg/dL (2.6-4.7)
[2019-07-08 07:25] VITALS: BP 173/89
[2019-07-08] MEDS: BUDESONIDE 0.5 MG/2 ML NEBU. NEB SCH ×2 (07:51→19:55)
[2019-07-08] MEDS: IPRATRPIUM/ALBUTEROL 0.5/2.5MG 3 ML NEBU. NEB SCH ×4 (07:51→19:55)
--- NOTE | 2019-07-08 08:42 | RAD ---
EXAM: CHEST ONE VIEW. HISTORY: Congestive heart failure. COMPARISON: 07/02/2019. FINDINGS: A frontal view of the chest is obtained. There are mild interstitial opacities in the bases. There is no pneumothorax or clear pleural effusion. The heart is moderately enlarged. There are atherosclerotic calcifications of the aorta. IMPRESSION: 1. Basilar atelectasis versus mild pulmonary edema. 2. Moderate cardiomegaly. Electronically signed by: Precious Barnes MD (07/08/2019 8:39 AM) [place] [id number]
--- NOTE | 2019-07-08 08:59 | PDOC ---
PROGRESS NOTES Chief Complaint Chief Complaint Acute respiratory failure, multifactorial in etiology including acute diastolic congestive heart failure, acute exacerbation of chronic obstructive pulmonary disease? thromboembolic disease versus others. Abnormal chest x-ray. Acute exacerbation of chronic obstructive pulmonary disease. Acute diastolic congestive heart failure. Chronic kidney disease. Ex-smoker. Paroxysmal atrial fibrillation. History of pulmonary embolism. Anemia. Hypertension. Acute precip drop hgb - likely sec to CKD Normocytic, chronic anemia Metabolic enceph Leg edema Hypertensive urgency Chest pain, resolved Coronary calcifications per recent CT. LHC showed No significant coronary artery disease on 06/07/19 Headache Findings a small vessel ischemic change, technically age indeterminate without prior imaging for comparison. Lupus/antiphospholipid antibody syndrome with past PE HYPERTENSIVE ENCEPHALOPATHY CKD STAGE 3 No Doppler evidence of greater than 60% stenosis within the renal arteries.Echogenic renal parenchyma, a finding which can be seen with medical renal disease.cr not at goal Small simple appearing renal cysts. Acute on chronic diastolic CHF Valvular insufficiency/diastolic murmur PAFIB - maintaining SR HLP Anemia of chronic disease with prior hx of thrombocytopenia and leukopenia: ruled as an effect from immunosuppression Hx of RA - not sure if she is still on imuran, but claims not being on steroids nor methotrexate anymore. Thyromegaly/nodules: per CT COPD Pulmonary HTN History of Present Illness History of Present Illness Ms Caruso is a 58yo F w/ PMHx AFIB, HTN, Hyperlipidemia, COPD, CKD3, Pulmonary embolus, APS/lupus admitted for complains of shortness of breath, cough, wheezing, and lower extremity edema. She described the pain to her left chest as punching sensation lasting few seconds intermittent. No frequent dizziness and no palpitations. She has been noted with PAFIB no associated nausea, vomiting. No jaw or arm discomfort. No frequent indigestion. Chest x-ray showed increased patchy airspace disease in the right upper lobe and left hilar region along with trace right pleural effusion with adjacent compressive atelectasis versus infiltrate. Found with BP 213/155, admitted for hypertensive emergency. BP has been coming down over the course of the weekend. Seen by nephrology, cardiology and neurology. Echo - The left ventricular systolic function is normal and the ejection fraction is within normal range. The Ejection Fraction is 65-70%. There is normal LV segmental wall motion. There is moderate concentric left ventricular hypertrophy. Aortic valve is not well visualized. No significant stenosis or regurgitation noted on doppler imaging. Cannot rule out flail mitral valve chord versus artifact. No significant regurgitation noted, therefore, it is likely an artifact, correlate with clinical exam. Doppler and Color Flow revealed trace regurgitation. RVSP of 51 mm Hg. 06/07: Cardiac Cath 1. Hemodynamics: Left ventricular end-diastolic pressure of 20 mmHg. No pullback gradient across the aortic valve. 2. Coronary angiography: a. The left main coronary artery arose from the left sinus of Valsalva, gave rise to the left anterior descending and left circumflex arteries and did not show any significant stenosis. b. The left anterior descending artery did not show any significant stenosis. c. The left circumflex artery did not show any significant stenosis. d. The right coronary artery was a large and dominant vessel arising from the right sinus of Valsalva that did not show any significant stenosis. Conclusion No significant coronary artery disease 06/10: She is a bit confused about whether she is in a [facility] or hospital, states she likes the care she is getting her. She is asking to leave. No further chest pain or shortness of breath. Still a little mentally foggy today, but alert and oriented. She is feeling very weak today. No change in BUN or Cr, though not at baseline DAY 6 lasix gtt, doing well, legs better, lytes holding. Dw/ nephro will change to PO lasix and d/c reid, monitor for another day CREat 2.7 AND STABLE hgb stable 7,.7 - positive BM NO inc in SOA Still some leg edema, but way better Came from [facility] BP high side PLAN: No need for bT, hgb stable at 7,7 PPLAce tomorrow on hydralazine 100 TID PO Reid cath inserted 07/12 bec of lasix gtt - ok to d/c [facility] on dc, only has limited SNU days left per SW - i told this to pt dw her and aide at bedside Vitals Vitals Vital Signs Date Time Temp Pulse Resp B/P (MAP) Pulse Ox O2 Delivery O2 Flow Rate FiO2 07/08/19 07:53 98 Room Air 07/08/19 07:35 99.0 99.0 07/08/19 07:25 89 20 173/89 (117) 07/07/19 07:30 2.0 Physical Exam Physical Exam GENERAL: Propped up in chair and alert HEENT: Pupils equally round. Oropharynx pink and moist. NECK: Supple. LUNGS: CTA HEART: S1, S2. Murmur present. ABDOMEN: Soft, nontender with bowel sounds present. EXTREMITIES: Pedal edema bilaterally. No cyanosis. SKIN: Warm to touch. No signs of rash. NEUROLOGIC: Alert, answers questions appropriately PIV General: mild distress Heart: Regular rate Lungs: Crackles Abdomen: Normal bowel sounds Extremities: No cyanosis, Other (plus 2-3 edema) Skin: No rashes, No breakdown Labs LABS Laboratory Tests Test 07/07/19 09:20 07/08/19 02:40 Hemoglobin 7.7 g/dL (12.0-15.5) Hematocrit 23.6 % (36.0-47.0) Mean Corpuscular Hemoglobin Concent 33 g/dL (31-37) Sodium Level 144 mmol/L (136-145) Potassium Level 4.0 mmol/L (3.5-5.1) Chloride Level 106 mmol/L (98-107) Carbon Dioxide Level 30 mmol/L (21-32) Anion Gap 8 (6-14) Blood Urea Nitrogen 62 mg/dL (7-20) Creatinine 2.8 mg/dL (0.6-1.0) Estimated GFR (Cockcroft-Gault) 20.9 Glucose Level 92 mg/dL (70-99) Calcium Level 9.1 mg/dL (8.5-10.1) Phosphorus Level 4.2 mg/dL (2.6-4.7) Albumin 2.2 g/dL (3.4-5.0) Assessment and Plan Assessmemt and Plan Problems Medical Problems: (1) Acute exacerbation of CHF (congestive heart failure) Status: Acute (2) Shortness of breath Status: Acute Comment Review of Relevant I have reviewed the following items gregorio (where applicable) has been applied. Labs Laboratory Tests Test 07/07/19 09:20 07/08/19 02:40 Hemoglobin 7.7 g/dL (12.0-15.5) Hematocrit 23.6 % (36.0-47.0) Mean Corpuscular Hemoglobin Concent 33 g/dL (31-37) Sodium Level 144 mmol/L (136-145) Potassium Level 4.0 mmol/L (3.5-5.1) Chloride Level 106 mmol/L (98-107) Carbon Dioxide Level 30 mmol/L (21-32) Anion Gap 8 (6-14) Blood Urea Nitrogen 62 mg/dL (7-20) Creatinine 2.8 mg/dL (0.6-1.0) Estimated GFR (Cockcroft-Gault) 20.9 Glucose Level 92 mg/dL (70-99) Calcium Level 9.1 mg/dL (8.5-10.1) Phosphorus Level 4.2 mg/dL (2.6-4.7) Albumin 2.2 g/dL (3.4-5.0) Laboratory Tests Test 07/07/19 09:20 07/08/19 02:40 Hemoglobin 7.7 g/dL (12.0-15.5) Hematocrit 23.6 % (36.0-47.0) Mean Corpuscular Hemoglobin Concent 33 g/dL (31-37) Sodium Level 144 mmol/L (136-145) Potassium Level 4.0 mmol/L (3.5-5.1) Chloride Level 106 mmol/L (98-107) Carbon Dioxide Level 30 mmol/L (21-32) Anion Gap 8 (6-14) Blood Urea Nitrogen 62 mg/dL (7-20) Creatinine 2.8 mg/dL (0.6-1.0) Estimated GFR (Cockcroft-Gault) 20.9 Glucose Level 92 mg/dL (70-99) Calcium Level 9.1 mg/dL (8.5-10.1) Phosphorus Level 4.2 mg/dL (2.6-4.7) Albumin 2.2 g/dL (3.4-5.0) Microbiology 06/28/19 Urine Culture - Final, Complete 06/28/19 Urine Culture Result 1 (JANINE) - Final, Complete 06/28/19 Blood Culture - Final, Complete NO GROWTH AFTER 5 DAYS Medications Current Medications Albuterol/ Ipratropium (Duoneb) 3 ml 1X ONCE NEB Last administered on 06/28/19at 12:30; Start 06/28/19 at 12:30; Stop 06/28/19 at 12:31; Status DC Piperacillin Sod/ Tazobactam Sod 3.375 gm/Sodium Chloride 50 ml @ 100 mls/hr Q6HRS IV Last administered on 07/01/19at 11:11; Start 06/29/19 at 00:00; Stop 07/01/19 at 15:08; Status DC Piperacillin Sod/ Tazobactam Sod 3.375 gm/Sodium Chloride 50 ml @ 100 mls/hr 1X ONCE IV Last administered on 06/28/19 15:21; Start 06/28/19 at 14:30; Stop 06/28/19 at 14:59; Status DC Albuterol Sulfate (Ventolin Neb Soln) 2.5 mg PRN Q6HRS PRN INH SHORTNESS OF BREATH Last administered on 07/02/19 05:05; Start 06/28/19 at 15:00 Amlodipine Besylate (Norvasc) 10 mg DAILY PO Last administered on 07/07/19 09:16; Start 06/28/19 at 15:00 Atorvastatin Calcium (Lipitor) 40 mg HS PO Last administered on 07/07/19 22:35; Start 06/28/19 at 21:00 Calcium Acetate (Phoslo) 667 mg BIDWMEALS PO Last administered on 07/07/19 17:38; Start 06/28/19 at 17:00 Clonidine HCl (Catapres Tts-2) 1 patch WEEKLY TD Last administered on 07/05/19 09:38; Start 07/05/19 at 09:00 Hydralazine HCl (Apresoline) 25 mg TID PO Last administered on 07/01/19 08:38; Start 06/28/19 at 15:00; Stop 07/01/19 at 15:16; Status DC Hydroxychloroquine Sulfate (Plaquenil) 200 mg DAILY PO Last administered on 07/07/19 09:16; Start 06/28/19 at 15:00 Labetalol HCl (Trandate) 300 mg BID PO Last administered on 07/07/19 22:34; Start 06/28/19 at 21:00 Pantoprazole Sodium (Protonix) 40 mg DAILYAC PO Last administered on 07/07/19 09:14; Start 06/29/19 at 07:30 Rivaroxaban (Xarelto) 10 mg DAILY PO ; Start 06/28/19 at 21:30; Stop 06/28/19 at 21:55; Status DC Budesonide (Pulmicort) 0.5 mg RTBID NEB Last administered on 07/08/19 07:51; Start 06/28/19 at 20:00 Multivitamins (Thera M Plus) 1 tab DAILY PO Last administered on 07/07/19 09:16; Start 06/29/19 at 09:00 Potassium Chloride (Klor-Con) 20 meq DAILYWBKFT PO Last administered on 07/07/19 09:15; Start 06/29/19 at 08:00 Albuterol/ Ipratropium (Duoneb) 3 ml RTQID NEB ; Start 06/28/19 at 16:00; Stop 06/28/19 at 15:16; Status DC Linezolid/Dextrose 300 ml @ 300 mls/hr Q12HR IV Last administered on 07/01/19 08:41; Start 06/28/19 at 15:30; Stop 07/01/19 at 15:08; Status DC Sodium Chloride (Normal Saline Flush) 3 ml QSHIFT PRN IV AFTER MEDS AND BLOOD DRAWS; Start 06/28/19 at 15:15 Sodium Chloride 1,000 ml @ 100 mls/hr Q10H IV ; Start 06/28/19 at 15:08; Stop 06/28/19 at 15:39; Status DC Ondansetron HCl (Zofran) 4 mg PRN Q4HRS PRN IV NAUSEA/VOMITING; Start 06/28/19 at 15:15 Acetaminophen (Tylenol) 650 mg PRN Q4HRS PRN PO TEMP OVER 100.4F OR MILD PAIN Last administered on 07/07/19at 22:36; Start 06/28/19 at 15:15 Clonidine HCl (Catapres) 0.1 mg PRN Q6HRS PRN PO SBP>160 OR DBP>90 Last administered on 07/04/19at 23:00; Start 06/28/19 at 15:15 Docusate Sodium (Colace) 100 mg PRN BID PRN PO HARD STOOLS Last administered on 07/01/19 21:21; Start 06/28/19 at 15:15 Albuterol/ Ipratropium (Duoneb) 3 ml Q4HRS NEB Last administered on 07/01/19at 07:38; Start 06/28/19 at 16:00; Stop 07/01/19 at 11:20; Status DC Guaifenesin (Robitussin) 200 mg PRN Q4HRS PRN PO COUGH, 2ND CHOICE Last administered on 07/01/19at 21:19; Start 06/28/19 at 15:15 Lorazepam (Ativan) 0.5 mg PRN Q4HRS PRN PO ANXIETY / AGITATION; Start 06/28/19 at 15:15 Furosemide (Lasix) 40 mg 1X ONCE IVP Last administered on 06/28/19at 15:45; Start 06/28/19 at 16:00; Stop 06/28/19 at 16:01; Status DC Enoxaparin Sodium (Lovenox Per Pharmacy Treatment Dosing) 1 each PRN DAILY PRN MC SEE COMMENTS; Start 06/28/19 at 21:15; Status UNV Enoxaparin Sodium (Lovenox Per Pharmacy Treatment Dosing) 1 each PRN DAILY PRN MC SEE COMMENTS; Start 06/28/19 at 22:00; Stop 07/01/19 at 16:13; Status DC Enoxaparin Sodium (Lovenox 80mg Syringe) 80 mg Q24H SQ Last administered on 06/30/19at 21:00; Start 06/28/19 at 22:00; Stop 07/01/19 at 16:08; Status DC Enoxaparin Sodium (Lovenox Per Pharmacy Treatment Dosing) 1 each PRN DAILY PRN MC SEE COMMENTS; Start 06/28/19 at 22:00; Status UNV Guaifenesin (Robitussin Dm) 10 ml PRN Q6HRS PRN PO COUGH 1ST CHOICE Last administered on 07/04/19at 21:10; Start 06/29/19 at 07:45 Calcium Carbonate/ Glycine (Tums) 500 mg PRN AFTMEALHC PRN PO INDIGESTION Last administered on 07/02/19at 08:49; Start 06/29/19 at 07:45 Acetaminophen/ Hydrocodone Bitart (Lortab 5/325) 1 tab PRN Q4HRS PRN PO MODERATE-SEVERE PAIN Last administered on 06/30/19at 20:58; Start 06/29/19 at 07:45 Methylprednisolone Sodium Succinate (SOLU-Medrol 40MG VIAL) 40 mg Q8HRS IV Last administered on 06/30/19at 06:05; Start 06/29/19 at 08:30; Stop 06/30/19 at 08:33; Status DC Furosemide (Lasix) 40 mg DAILY IVP Last administered on 07/01/19 08:40; Start 06/29/19 at 08:30; Stop 07/01/19 at 11:01; Status DC Lactobacillus Rhamnosus (Culturelle) 1 cap BID PO Last administered on 07/02/19 08:50; Start 06/29/19 at 21:00; Stop 07/02/19 at 13:50; Status DC Polyethylene Glycol (miraLAX PACKET) 17 gm DAILY PO Last administered on 07/07/19at 09:14; Start 06/30/19 at 09:00 Polyethylene Glycol (miraLAX PACKET) 17 gm 1X ONCE PO Last administered on 06/29/19 12:30; Start 06/29/19 at 11:00; Stop 06/29/19 at 11:01; Status DC Magnesium Hydroxide (Milk Of Magnesia) 2,400 mg 1X ONCE PO Last administered on 06/29/19 12:29; Start 06/29/19 at 11:00; Stop 06/29/19 at 11:01; Status DC Magnesium Hydroxide (Milk Of Magnesia) 2,400 mg PRN DAILY PRN PO CONSTIPATION Last administered on 06/30/19 15:08; Start 06/29/19 at 10:30 Bisacodyl (Dulcolax Supp) 10 mg PRN DAILY PRN NM CONSTIPATION Last administered on 06/30/19 15:09; Start 06/29/19 at 10:30 Methylprednisolone Sodium Succinate (SOLU-Medrol 40MG VIAL) 40 mg Q12HR IV Last administered on 07/01/19at 08:41; Start 06/30/19 at 21:00; Stop 07/01/19 at 13:49; Status DC Darbepoetin Emmanuel (ARANESP for NON-DIALYSIS PTS) 60 mcg 1X ONCE SQ Last administered on 07/01/19at 11:11; Start 07/01/19 at 12:00; Stop 07/01/19 at 12:01; Status DC Furosemide (Lasix) 40 mg BID IVP Last administered on 07/01/19 21:20; Start 07/01/19 at 11:00; Stop 07/02/19 at 12:12; Status DC Albuterol Sulfate (Ventolin Neb Soln) 2.5 mg 1X ONCE NEB ; Start 07/01/19 at 11:30; Stop 07/01/19 at 11:31; Status DC Albuterol/ Ipratropium (Duoneb) 3 ml RTQID NEB Last administered on 07/08/19at 07:51; Start 07/01/19 at 12:00 Info (Anti-Coagulation Monitoring By Pharmacy) 1 each PRN DAILY PRN MC SEE COMMENTS; Start 07/01/19 at 14:00 Hydralazine HCl (Apresoline) 50 mg TID PO Last administered on 07/01/19at 15:36; Start 07/01/19 at 15:15; Stop 07/01/19 at 15:56; Status DC Hydralazine HCl (Apresoline) 100 mg TID PO Last administered on 07/07/19at 22:36; Start 07/01/19 at 21:00 Apixaban (Eliquis) 5 mg BID PO Last administered on 07/07/19at 22:34; Start 07/01/19 at 21:00 Furosemide 100 mg/ Sodium Chloride 100 ml @ 5 mls/hr CONT PRN IV SEE I/O RECORD Last administered on 07/07/19at 15:57; Start 07/02/19 at 12:00 Hydralazine HCl (Apresoline Inj) 10 mg PRN Q4HRS PRN IVP ELEVATED BP, SEE COMMENTS Last administered on 07/04/19at 07:23; Start 07/03/19 at 08:30 Hydralazine HCl (Apresoline) 10 mg TID PO ; Start 07/03/19 at 09:00; Status Cancel Isosorbide Mononitrate (Imdur) 30 mg DAILY PO Last administered on 07/07/19at 09:15; Start 07/05/19 at 09:00 Active Scripts Active Lasix (Furosemide) 40 Mg Tablet 1 Tab PO DAILY 5 Days Guaifenesin 100 Mg/5 Ml Liquid 200 Mg PO PRN Q4HRS PRN 7 Days Ativan (Lorazepam) 0.5 Mg Tablet 0.5 Mg PO PRN Q4HRS PRN Hydrocodone-Apap 5-325 (Hydrocodone Bit/Acetaminophen) 1 Tab Tablet 1 Tab PO PRN Q4HRS PRN Amlodipine Besylate 10 Mg Tablet 10 Mg PO DAILY 30 Days Labetalol Hcl 200 Mg Tablet 300 Mg PO BID 30 Days Hydralazine Hcl 25 Mg Tablet 25 Mg PO TID 30 Days Clonidine Tts-2 (Clonidine) 1 Each Patch.tdwk 1 Patch TD WEEKLY 30 Days Reported Protonix (Pantoprazole Sodium) 40 Mg Tablet.dr 40 Mg PO DAILYAC Hydroxychloroquine Sulfate 200 Mg Tablet 200 Mg PO DAILY Multivitamins (Multivitamin) 1 Each Tablet 1 Tab PO DAILY Symbicort 160-4.5 Mcg Inhaler (Budesonide/Formoterol Fumarate) 10.2 Gm Hfa.aer.ad 1 Puff IH BID Spiriva (Tiotropium Paicines) 18 Mcg Cap.w.dev 2 Inh IH DAILY Proair Hfa Inhaler (Albuterol Sulfate) 8.5 Gm Hfa.aer.ad 1 Puff INH PRN Q6HRS PRN Xarelto (Rivaroxaban) 10 Mg Tablet 10 Mg PO DAILY Atorvastatin Calcium 40 Mg Tablet 40 Mg PO HS Phoslo (Calcium Acetate) 667 Mg Capsule 1 Cap PO BIDWMEALS K-Tab ER (Potassium Chloride) 20 Meq Tablet.er 20 Meq PO DAILY Vitals/I & O Vital Sign - Last 24 Hours 07/07/19 07/07/19 07/07/19 07/07/19 09:15 09:16 09:16 09:19 Pulse 84 89 87 89 B/P (MAP) 144/70 144/70 144/70 07/07/19 07/07/19 07/07/19 07/07/19 11:08 11:20 14:39 14:41 Temp 98.4 98.4 98.4 98.4 Pulse 83 84 Resp 16 16 B/P (MAP) 144/70 (94) 134/74 (94) 134/74 Pulse Ox 93 93 O2 Delivery Room Air Room Air Room Air 07/07/19 07/07/19 07/07/19 07/07/19 15:28 19:20 20:00 20:00 Temp 99.2 99.2 Pulse 89 Resp 20 B/P (MAP) 140/76 (97) Pulse Ox 92 98 O2 Delivery Room Air Room Air Room Air Room Air 07/07/19 07/07/19 07/07/19 07/08/19 22:34 22:36 22:50 03:50 Temp 99.2 99.0 99.2 99.0 Pulse 89 89 91 94 Resp 20 20 B/P (MAP) 140/76 140/76 159/85 (109) 171/89 (116) Pulse Ox 91 92 O2 Delivery Room Air Room Air 07/08/19 07/08/19 07/08/19 07:25 07:35 07:53 Temp 101.2 99.0 101.2 99.0 Pulse 89 Resp 20 B/P (MAP) 173/89 (117) Pulse Ox 91 98 O2 Delivery Room Air Room Air Intake and Output 07/07/19 07/07/19 07/08/19 15:00 23:00 07:00 Intake Total 480 ml 240 ml 120 ml Output Total 900 ml 300 ml 1350 ml Balance -420 ml -60 ml -1230 ml PAMELA HDZ MD Jul 08, 2019 08:58
[2019-07-08] MEDS: POTASSIUM CHLORIDE 20 MEQ TABLET.ER. PO SCH (09:08)
[2019-07-08] MEDS: PANTOPRAZOLE 40 MG TABLET.DR. PO SCH (09:08)
[2019-07-08] MEDS: MULTIVITAMIN with MINERAL TABLET. PO SCH (09:09)
[2019-07-08] MEDS: ACETAMINOPHEN 325 MG TABLET. PO PRN ×2 (09:09→22:38)
[2019-07-08] MEDS: APIXABAN 5 MG TABLET. PO SCH ×2 (09:10→20:41)
[2019-07-08] MEDS: ISOSORBIDE MONONITRATE ER 30 MG TAB.ER.24H PO SCH (09:10)
[2019-07-08] MEDS: HYDROXYCHLOROQUINE 200 MG TABLET PO SCH (09:10)
[2019-07-08] MEDS: LABETALOL HCL 100 MG TABLET. PO SCH ×2 (09:11→20:41)
[2019-07-08] MEDS: amLODIPine BESYLATE 10 MG TABLET PO SCH (09:11)
[2019-07-08] MEDS: CALCIUM ACETATE 667 MG CAPSULE PO SCH ×2 (09:13→16:33)
[2019-07-08] MEDS: POLYETHYLENE GLYCOL 3350 17 GM PACKET. PO SCH (09:13)
--- NOTE | 2019-07-08 10:11 | PDOC ---
Renal-Progress Notes Subjective Notes Notes FEELS WELL, NO SOB History of Present Illness Hx of present illness STABLE Vitals Vitals Vital Signs Date Time Temp Pulse Resp B/P (MAP) Pulse Ox O2 Delivery O2 Flow Rate FiO2 07/08/19 09:12 89 164/89 07/08/19 07:53 98 Room Air 07/08/19 07:35 99.0 99.0 07/08/19 07:25 20 07/07/19 07:30 2.0 Weight Weight [ ] I.O. Intake and Output Intake and Output 07/08/19 07:00 Intake Total 840 ml Output Total 2550 ml Balance -1710 ml Intake Oral 840 ml Output Urine Total 2550 ml Labs Labs Laboratory Tests Test 07/08/19 02:40 Sodium Level 144 mmol/L (136-145) Potassium Level 4.0 mmol/L (3.5-5.1) Chloride Level 106 mmol/L (98-107) Carbon Dioxide Level 30 mmol/L (21-32) Anion Gap 8 (6-14) Blood Urea Nitrogen 62 mg/dL (7-20) Creatinine 2.8 mg/dL (0.6-1.0) Estimated GFR (Cockcroft-Gault) 20.9 Glucose Level 92 mg/dL (70-99) Calcium Level 9.1 mg/dL (8.5-10.1) Phosphorus Level 4.2 mg/dL (2.6-4.7) Albumin 2.2 g/dL (3.4-5.0) Micro Micro Microbiology 06/28/19 Urine Culture - Final, Complete 06/28/19 Urine Culture Result 1 (JANINE) - Final, Complete 06/28/19 Blood Culture - Final, Complete NO GROWTH AFTER 5 DAYS Review of Systems Constitutional: yes: alert Ears/Nose/Throat: Yes: no symptom reported Eyes: Yes: no symptom reported Pulmonary: Yes no symptom reported Cardiovascular: Yes edema Gastrointestional: Yes: no symptom reported Musculoskeletal: Yes: no symptom reported Psychiatric/Neurological: Yes: no symptom reported Physical Exam General Appearance: no apparent distress Skin: warm Respiratory: decreased breath sounds Heart: S1S2 Abdomen: soft, bowel sounds present Genitourinary: bladder flat Extremities: pulses present Neurology: alert, oriented, follow commands Assessment Assessment IMP RIYA-STABLE WITH CR OF 2.8 CKD STAGE 3B TO 4 LE EDEMA-ESSENTIALLY RESOLVED HYPERNATREMIA-RESOLVED CHF-PROB [id number] INCREASED PAP AND MILD AV STENOSIS HX OF SLE-SEES RHEUMATOLOGY-ON SAUMYA PER HEME OP MEMBRANOUS NEPHROPATHY-BX PROVEN WITH PROTEINURIA ANEMIA-CHRONIC DZ AND DUE TO CKD PLAN D/C LASIX GTT PO LASIX D/C PULLIAM IF STABLE PROB D/C TOMORROW JORGE ALBERTO HI MD Jul 08, 2019 10:11
[2019-07-08 11:03] VITALS: BP 145/78
--- NOTE | 2019-07-08 12:34 | PDOC ---
XIANG GRAFF PRINCIPAL INVESTIGATOR 07/08/19 1234: CARDIO Progress Notes Date and Time Date of Service 07/08/19 Time of Evaluation 1350 Subjective Subjective: No Chest Pain, No shortness of breath, No Palpitations Vitals Vitals Vital Signs Date Time Temp Pulse Resp B/P (MAP) Pulse Ox O2 Delivery O2 Flow Rate FiO2 07/08/19 11:23 Room Air 07/08/19 11:03 97.7 81 18 145/78 (100) 96 97.7 07/07/19 07:30 2.0 Weight Weight [ ] Input and Output Intake and Output Intake and Output 07/08/19 07:00 Intake Total 840 ml Output Total 2550 ml Balance -1710 ml Intake Oral 840 ml Output Urine Total 2550 ml Laboratory Labs Laboratory Tests Test 07/08/19 02:40 Sodium Level 144 mmol/L (136-145) Potassium Level 4.0 mmol/L (3.5-5.1) Chloride Level 106 mmol/L (98-107) Carbon Dioxide Level 30 mmol/L (21-32) Anion Gap 8 (6-14) Blood Urea Nitrogen 62 mg/dL (7-20) Creatinine 2.8 mg/dL (0.6-1.0) Estimated GFR (Cockcroft-Gault) 20.9 Glucose Level 92 mg/dL (70-99) Calcium Level 9.1 mg/dL (8.5-10.1) Phosphorus Level 4.2 mg/dL (2.6-4.7) Albumin 2.2 g/dL (3.4-5.0) Microbiology Micro Microbiology 06/28/19 Urine Culture - Final, Complete 06/28/19 Urine Culture Result 1 (JANINE) - Final, Complete 06/28/19 Blood Culture - Final, Complete NO GROWTH AFTER 5 DAYS Review of Systems Constitutional: yes: alert Ears/Nose/Throat: Yes: no symptom reported Eyes: Yes: no symptom reported Pulmonary: Yes no symptom reported Cardiovascular: Yes edema Gastrointestional: Yes: no symptom reported Musculoskeletal: Yes: no symptom reported Psychiatric/Neurological: Yes: no symptom reported Physical Exam HEENT: Neck Supple W Full Motion Chest: Symmetric LUNGS: Other (diminished bases) Heart: S1S2, RRR (SR), murmurs (3/6 systolic murmur to FRANTZ border) Abdomen: Soft N/T Extremities: Other (1+ bilateral LE edema ) Neurology: alert, oriented, follow commands Assessment Assessment 1. Acute respiratory failure with acute CHF, AECOPD, and anemia 2. Acute on chronic CHF; appears compensated. Lasix gtt discontinued. 3. PAFIB: maintaining SR. 4. Malignant HTN: better controlled. 5. Hyperlipidemia; statin therapy 6. , mild 7. RIYA on CKD: Cr 2.8 remains uremic. Renal duplex without significant stenosis 8. COPD/moderate pulmonary HTN: stable 9. Anemia, chronic: Hgb stable at 7.7 Recommendations Oral Lasix resumed. Continue with current BP regimen. No ACEi/ARB at this time Eliquis for stroke prevention Supportive care. BRENDA RAY MD 07/09/19 0808: CARDIO Progress Notes Assessment Assessment Patient seen and examined 07/08/19. Agree with WELDING MACHINE OPERATOR/TENDER's assessment and plan. Patient much better compensated clinically. Lasix change to by mouth. PAF maintaining sinus rhythm. Continue eliquis for stroke prophylaxis. XIANG GRAFF APRN Jul 08, 2019 12:34 BRENDA RAY MD Jul 09, 2019 08:08
--- NOTE | 2019-07-08 13:07 | PDOC ---
PULMONARY PROGRESS NOTES Subjective on RA, sob better, no cp, has occ cough Vitals Vital Signs Date Time Temp Pulse Resp B/P (MAP) Pulse Ox O2 Delivery O2 Flow Rate FiO2 07/08/19 11:23 Room Air 07/08/19 11:03 97.7 81 18 145/78 (100) 96 97.7 07/07/19 07:30 2.0 ROS: No Nausea, No Chest Pain, No Abdominal Pain, No Increase Cough General: Alert HEENT: Other Lungs: Other (decrease bs) Cardiovascular: S1, S2 Abdomen: Soft, Non-tender Neuro Exam: Alert, Oriented Extremities: Other (edema) Skin: Warm Labs Laboratory Tests Test 07/07/19 09:20 07/08/19 02:40 Hemoglobin 7.7 g/dL (12.0-15.5) Hematocrit 23.6 % (36.0-47.0) Mean Corpuscular Hemoglobin Concent 33 g/dL (31-37) Sodium Level 144 mmol/L (136-145) Potassium Level 4.0 mmol/L (3.5-5.1) Chloride Level 106 mmol/L (98-107) Carbon Dioxide Level 30 mmol/L (21-32) Anion Gap 8 (6-14) Blood Urea Nitrogen 62 mg/dL (7-20) Creatinine 2.8 mg/dL (0.6-1.0) Estimated GFR (Cockcroft-Gault) 20.9 Glucose Level 92 mg/dL (70-99) Calcium Level 9.1 mg/dL (8.5-10.1) Phosphorus Level 4.2 mg/dL (2.6-4.7) Albumin 2.2 g/dL (3.4-5.0) Laboratory Tests Test 07/08/19 02:40 Sodium Level 144 mmol/L (136-145) Potassium Level 4.0 mmol/L (3.5-5.1) Chloride Level 106 mmol/L (98-107) Carbon Dioxide Level 30 mmol/L (21-32) Anion Gap 8 (6-14) Blood Urea Nitrogen 62 mg/dL (7-20) Creatinine 2.8 mg/dL (0.6-1.0) Estimated GFR (Cockcroft-Gault) 20.9 Glucose Level 92 mg/dL (70-99) Calcium Level 9.1 mg/dL (8.5-10.1) Phosphorus Level 4.2 mg/dL (2.6-4.7) Albumin 2.2 g/dL (3.4-5.0) Medications Active Scripts Medications Dose Route/Sig Max Daily Dose Days Date Category Amlodipine Besylate 10 Mg Tablet 10 Mg PO DAILY 30 06/13/19 Rx Labetalol Hcl 200 Mg Tablet 300 Mg PO BID 30 06/13/19 Rx Hydralazine Hcl 25 Mg Tablet 25 Mg PO TID 30 06/13/19 Rx Clonidine Tts-2 (Clonidine) 1 Each Patch.tdwk 1 Patch TD WEEKLY 30 06/13/19 Rx Protonix (Pantoprazole Sodium) 40 Mg Tablet.dr 40 Mg PO DAILYAC 06/05/19 Reported Hydroxychloroquine Sulfate 200 Mg Tablet 200 Mg PO DAILY 06/05/19 Reported Multivitamins (Multivitamin) 1 Each Tablet 1 Tab PO DAILY 06/05/19 Reported Symbicort 160-4.5 Mcg Inhaler (Budesonide/Formoterol Fumarate) 10.2 Gm Hfa.aer.ad 1 Puff IH BID 12/13/18 Reported Spiriva (Tiotropium [place]) 18 Mcg Cap.w.dev 2 Inh IH DAILY 12/13/18 Reported Proair Hfa Inhaler (Albuterol Sulfate) 8.5 Gm Hfa.aer.ad 1 Puff INH PRN Q6HRS PRN 12/13/18 Reported Xarelto (Rivaroxaban) 10 Mg Tablet 10 Mg PO DAILY 12/13/18 Reported Atorvastatin Calcium 40 Mg Tablet 40 Mg PO HS 12/13/18 Reported Phoslo (Calcium Acetate) 667 Mg Capsule 1 Cap PO BIDWMEALS 06/11/14 Reported K-Tab ER (Potassium Chloride) 20 Meq Tablet.er 20 Meq PO DAILY 05/23/14 Reported Impression . IMPRESSION: 1. Acute respiratory failure, MOSTLY CHF 2. Abnormal chest x-ray.c/w CHF, improving 3. Acute exacerbation of chronic obstructive pulmonary disease. 4. Acute diastolic congestive heart failure. 5. Chronic kidney disease. 6. Ex-smoker. 7. Paroxysmal atrial fibrillation. 8. History of pulmonary embolism. 9. Anemia. 10. Hypertension. 11. LOWE EXT VENOUS DOPPLER NEGATIVE Plan . ON LASIX PER NEPHRO, monitor k, cr. Pt has CKD cont BD WILL CONTINUE THE SAME DOUBT PE CLINICAL SUSPICION IS LOW ON ANTICOUGULATION FOR AF 6 min walk at dc discussed w rn, pt GISSELL GAINES MD Jul 08, 2019 13:07
[2019-07-08 15:00] VITALS: BP 120/68
--- NOTE | 2019-07-08 15:04 | NUR ---
SS following up with discharge planning. Lasix drip discontinued. SS discussed with Citlali at [facility]. Citlali reported that pt has only 15 days of fdc benefit at this time. Citlali reported that [facility] has no beds available at this time. SS discussed with pt. Pt reported that she wanted to use her skilled days and requested that referral be phoned and faxed to [facility], ; fax [phone]. SS phoned and faxed referral. SS will await acceptance decision and insurance determination and will proceed accordingly with discharge planning.
[2019-07-08] MEDS: FUROSEMIDE 40 MG TABLET. PO SCH (16:35)
[2019-07-08 19:20] VITALS: BP 126/71
[2019-07-08] MEDS: ATORVASTATIN CALCIUM 40 MG TABLET. PO SCH (20:41)
[2019-07-08] MEDS ORDERED: DARBEPOETIN ALFA 60 MCG/0.3 ML DISP.SYRIN. SQ SCH (21:00)
[2019-07-08 22:35] VITALS: BP 148/79
[2019-07-09 02:45] VITALS: BP 149/82
[2019-07-09 06:12] LABS: ALBUMIN 2.2 g/dL (3.4-5.0); CALCIUM 8.9 mg/dL (8.5-10.1); CREATININE 3.1 mg/dL (0.6-1.0); GFR 18.6; MAGNESIUM 2.1 mg/dL (1.8-2.4); PHOSPHORUS 4.1 mg/dL (2.6-4.7); POTASSIUM 4.2 mmol/L (3.5-5.1)
[2019-07-09 07:00] VITALS: BP 163/81
--- NOTE | 2019-07-09 07:56 | PDOC ---
PROGRESS NOTES Chief Complaint Chief Complaint Acute respiratory failure, multifactorial in etiology including acute diastolic congestive heart failure, acute exacerbation of chronic obstructive pulmonary disease? thromboembolic disease versus others. Abnormal chest x-ray. Acute exacerbation of chronic obstructive pulmonary disease. Acute diastolic congestive heart failure. Chronic kidney disease. Ex-smoker. Paroxysmal atrial fibrillation. History of pulmonary embolism. Anemia. Hypertension. Acute precip drop hgb - likely sec to CKD Normocytic, chronic anemia Metabolic enceph Leg edema Hypertensive urgency Chest pain, resolved Coronary calcifications per recent CT. LHC showed No significant coronary artery disease on 06/07/19 Headache Findings a small vessel ischemic change, technically age indeterminate without prior imaging for comparison. Lupus/antiphospholipid antibody syndrome with past PE HYPERTENSIVE ENCEPHALOPATHY CKD STAGE 3 No Doppler evidence of greater than 60% stenosis within the renal arteries.Echogenic renal parenchyma, a finding which can be seen with medical renal disease.cr not at goal Small simple appearing renal cysts. Acute on chronic diastolic CHF Valvular insufficiency/diastolic murmur PAFIB - maintaining SR HLP Anemia of chronic disease with prior hx of thrombocytopenia and leukopenia: ruled as an effect from immunosuppression Hx of RA - not sure if she is still on imuran, but claims not being on steroids nor methotrexate anymore. Thyromegaly/nodules: per CT COPD Pulmonary HTN History of Present Illness History of Present Illness Ms Caruso is a 58yo F w/ PMHx AFIB, HTN, Hyperlipidemia, COPD, CKD3, Pulmonary embolus, APS/lupus admitted for complains of shortness of breath, cough, wheezing, and lower extremity edema. She described the pain to her left chest as punching sensation lasting few seconds intermittent. No frequent dizziness and no palpitations. She has been noted with PAFIB no associated nausea, vomiting. No jaw or arm discomfort. No frequent indigestion. Chest x-ray showed increased patchy airspace disease in the right upper lobe and left hilar region along with trace right pleural effusion with adjacent compressive atelectasis versus infiltrate. Found with BP 172/94, admitted for hypertensive emergency. BP has been coming down over the course of the weekend. Seen by nephrology, cardiology and pulmonology. 07/07: Still a little mentally foggy today, but alert and oriented. She is feeling very weak today. No change in BUN or Cr, though not at baseline 07/08: DAY 6 lasix gtt, doing well, legs better, lytes holding. Dw/ nephro will change to PO lasix and d/c reid, monitor for another day Cr up to 3.1 today Still some leg edema, but way better. Off O2 Came from [facility]place BP high side PLAN: on hydralazine 100 TID PO Reid cath inserted 07/12 bec of lasix gtt - D/c'd on 07/08 [facility] on dc, only has limited SNU days left per SW - i told this to pt dw her and aide at bedside. Her aide has helped her fill out insurance paperwork. I can't help but note that she has checked a box to decline health insurance and vision coverage and signed this. Vitals Vitals Vital Signs Date Time Temp Pulse Resp B/P (MAP) Pulse Ox O2 Delivery O2 Flow Rate FiO2 07/09/19 02:45 98.8 86 20 149/82 (104) 93 Room Air 98.8 Physical Exam Physical Exam GENERAL: Propped up in chair and alert HEENT: Pupils equally round. Oropharynx pink and moist. NECK: Supple. LUNGS: CTA HEART: S1, S2. Murmur present. ABDOMEN: Soft, nontender with bowel sounds present. EXTREMITIES: Pedal edema bilaterally. No cyanosis. SKIN: Warm to touch. No signs of rash. NEUROLOGIC: Alert, answers questions appropriately PIV General: mild distress Heart: Regular rate Lungs: Other (decrease bs) Abdomen: Normal bowel sounds Extremities: No cyanosis, Other (plus 2-3 edema) Skin: No rashes, No breakdown Labs LABS Laboratory Tests Test 07/09/19 03:55 Sodium Level 144 mmol/L (136-145) Potassium Level 4.2 mmol/L (3.5-5.1) Chloride Level 107 mmol/L (98-107) Carbon Dioxide Level 29 mmol/L (21-32) Anion Gap 8 (6-14) Blood Urea Nitrogen 65 mg/dL (7-20) Creatinine 3.1 mg/dL (0.6-1.0) Estimated GFR (Cockcroft-Gault) 18.6 Glucose Level 89 mg/dL (70-99) Calcium Level 8.9 mg/dL (8.5-10.1) Phosphorus Level 4.1 mg/dL (2.6-4.7) Magnesium Level 2.1 mg/dL (1.8-2.4) Albumin 2.2 g/dL (3.4-5.0) Assessment and Plan Assessmemt and Plan Problems Medical Problems: (1) Acute exacerbation of CHF (congestive heart failure) Status: Acute (2) Shortness of breath Status: Acute Comment Review of Relevant I have reviewed the following items gregorio (where applicable) has been applied. Labs Laboratory Tests Test 07/07/19 09:20 07/08/19 02:40 07/09/19 03:55 Hemoglobin 7.7 g/dL (12.0-15.5) Hematocrit 23.6 % (36.0-47.0) Mean Corpuscular Hemoglobin Concent 33 g/dL (31-37) Sodium Level 144 mmol/L (136-145) 144 mmol/L (136-145) Potassium Level 4.0 mmol/L (3.5-5.1) 4.2 mmol/L (3.5-5.1) Chloride Level 106 mmol/L (98-107) 107 mmol/L (98-107) Carbon Dioxide Level 30 mmol/L (21-32) 29 mmol/L (21-32) Anion Gap 8 (6-14) 8 (6-14) Blood Urea Nitrogen 62 mg/dL (7-20) 65 mg/dL (7-20) Creatinine 2.8 mg/dL (0.6-1.0) 3.1 mg/dL (0.6-1.0) Estimated GFR (Cockcroft-Gault) 20.9 18.6 Glucose Level 92 mg/dL (70-99) 89 mg/dL (70-99) Calcium Level 9.1 mg/dL (8.5-10.1) 8.9 mg/dL (8.5-10.1) Phosphorus Level 4.2 mg/dL (2.6-4.7) 4.1 mg/dL (2.6-4.7) Albumin 2.2 g/dL (3.4-5.0) 2.2 g/dL (3.4-5.0) Magnesium Level 2.1 mg/dL (1.8-2.4) Laboratory Tests Test 07/09/19 03:55 Sodium Level 144 mmol/L (136-145) Potassium Level 4.2 mmol/L (3.5-5.1) Chloride Level 107 mmol/L (98-107) Carbon Dioxide Level 29 mmol/L (21-32) Anion Gap 8 (6-14) Blood Urea Nitrogen 65 mg/dL (7-20) Creatinine 3.1 mg/dL (0.6-1.0) Estimated GFR (Cockcroft-Gault) 18.6 Glucose Level 89 mg/dL (70-99) Calcium Level 8.9 mg/dL (8.5-10.1) Phosphorus Level 4.1 mg/dL (2.6-4.7) Magnesium Level 2.1 mg/dL (1.8-2.4) Albumin 2.2 g/dL (3.4-5.0) Microbiology 06/28/19 Urine Culture - Final, Complete 06/28/19 Urine Culture Result 1 (JANINE) - Final, Complete 06/28/19 Blood Culture - Final, Complete NO GROWTH AFTER 5 DAYS Medications Current Medications Albuterol/ Ipratropium (Duoneb) 3 ml 1X ONCE NEB Last administered on 06/28/19at 12:30; Start 06/28/19 at 12:30; Stop 06/28/19 at 12:31; Status DC Piperacillin Sod/ Tazobactam Sod 3.375 gm/Sodium Chloride 50 ml @ 100 mls/hr Q6HRS IV Last administered on 07/01/19at 11:11; Start 06/29/19 at 00:00; Stop 07/01/19 at 15:08; Status DC Piperacillin Sod/ Tazobactam Sod 3.375 gm/Sodium Chloride 50 ml @ 100 mls/hr 1X ONCE IV Last administered on 06/28/19at 15:21; Start 06/28/19 at 14:30; Stop 06/28/19 at 14:59; Status DC Albuterol Sulfate (Ventolin Neb Soln) 2.5 mg PRN Q6HRS PRN INH SHORTNESS OF BREATH Last administered on 07/02/19at 05:05; Start 06/28/19 at 15:00 Amlodipine Besylate (Norvasc) 10 mg DAILY PO Last administered on 07/08/19at 09:11; Start 06/28/19 at 15:00 Atorvastatin Calcium (Lipitor) 40 mg HS PO Last administered on 07/08/19at 20:41; Start 06/28/19 at 21:00 Calcium Acetate (Phoslo) 667 mg BIDWMEALS PO Last administered on 07/08/19 16:33; Start 06/28/19 at 17:00 Clonidine HCl (Catapres Tts-2) 1 patch WEEKLY TD Last administered on 07/05/19 09:38; Start 07/05/19 at 09:00 Hydralazine HCl (Apresoline) 25 mg TID PO Last administered on 07/01/19 08:38; Start 06/28/19 at 15:00; Stop 07/01/19 at 15:16; Status DC Hydroxychloroquine Sulfate (Plaquenil) 200 mg DAILY PO Last administered on 07/08/19 09:10; Start 06/28/19 at 15:00 Labetalol HCl (Trandate) 300 mg BID PO Last administered on 07/08/19 20:41; Start 06/28/19 at 21:00 Pantoprazole Sodium (Protonix) 40 mg DAILYAC PO Last administered on 07/08/19 09:08; Start 06/29/19 at 07:30 Rivaroxaban (Xarelto) 10 mg DAILY PO ; Start 06/28/19 at 21:30; Stop 06/28/19 at 21:55; Status DC Budesonide (Pulmicort) 0.5 mg RTBID NEB Last administered on 07/08/19 19:55; Start 06/28/19 at 20:00 Multivitamins (Thera M Plus) 1 tab DAILY PO Last administered on 07/08/19 09:09; Start 06/29/19 at 09:00 Potassium Chloride (Klor-Con) 20 meq DAILYWBKFT PO Last administered on 07/08/19 09:08; Start 06/29/19 at 08:00 Albuterol/ Ipratropium (Duoneb) 3 ml RTQID NEB ; Start 06/28/19 at 16:00; Stop 06/28/19 at 15:16; Status DC Linezolid/Dextrose 300 ml @ 300 mls/hr Q12HR IV Last administered on 07/01/19 08:41; Start 06/28/19 at 15:30; Stop 07/01/19 at 15:08; Status DC Sodium Chloride (Normal Saline Flush) 3 ml QSHIFT PRN IV AFTER MEDS AND BLOOD DRAWS; Start 06/28/19 at 15:15 Sodium Chloride 1,000 ml @ 100 mls/hr Q10H IV ; Start 06/28/19 at 15:08; Stop 06/28/19 at 15:39; Status DC Ondansetron HCl (Zofran) 4 mg PRN Q4HRS PRN IV NAUSEA/VOMITING; Start 06/28/19 at 15:15 Acetaminophen (Tylenol) 650 mg PRN Q4HRS PRN PO TEMP OVER 100.4F OR MILD PAIN Last administered on 07/08/19at 22:38; Start 06/28/19 at 15:15 Clonidine HCl (Catapres) 0.1 mg PRN Q6HRS PRN PO SBP>160 OR DBP>90 Last administered on 07/04/19at 23:00; Start 06/28/19 at 15:15 Docusate Sodium (Colace) 100 mg PRN BID PRN PO HARD STOOLS Last administered on 07/01/19at 21:21; Start 06/28/19 at 15:15 Albuterol/ Ipratropium (Duoneb) 3 ml Q4HRS NEB Last administered on 07/01/19at 07:38; Start 06/28/19 at 16:00; Stop 07/01/19 at 11:20; Status DC Guaifenesin (Robitussin) 200 mg PRN Q4HRS PRN PO COUGH, 2ND CHOICE Last administered on 07/01/19at 21:19; Start 06/28/19 at 15:15 Lorazepam (Ativan) 0.5 mg PRN Q4HRS PRN PO ANXIETY / AGITATION; Start 06/28/19 at 15:15 Furosemide (Lasix) 40 mg 1X ONCE IVP Last administered on 06/28/19at 15:45; Start 06/28/19 at 16:00; Stop 06/28/19 at 16:01; Status DC Enoxaparin Sodium (Lovenox Per Pharmacy Treatment Dosing) 1 each PRN DAILY PRN MC SEE COMMENTS; Start 06/28/19 at 21:15; Status UNV Enoxaparin Sodium (Lovenox Per Pharmacy Treatment Dosing) 1 each PRN DAILY PRN MC SEE COMMENTS; Start 06/28/19 at 22:00; Stop 07/01/19 at 16:13; Status DC Enoxaparin Sodium (Lovenox 80mg Syringe) 80 mg Q24H SQ Last administered on 06/30/19 21:00; Start 06/28/19 at 22:00; Stop 07/01/19 at 16:08; Status DC Enoxaparin Sodium (Lovenox Per Pharmacy Treatment Dosing) 1 each PRN DAILY PRN MC SEE COMMENTS; Start 06/28/19 at 22:00; Status UNV Guaifenesin (Robitussin Dm) 10 ml PRN Q6HRS PRN PO COUGH 1ST CHOICE Last administered on 07/04/19 21:10; Start 06/29/19 at 07:45 Calcium Carbonate/ Glycine (Tums) 500 mg PRN AFTMEALHC PRN PO INDIGESTION Last administered on 07/02/19 08:49; Start 06/29/19 at 07:45 Acetaminophen/ Hydrocodone Bitart (Lortab 5/325) 1 tab PRN Q4HRS PRN PO MODERAT E-SEVERE PAIN Last administered on 06/30/19at 20:58; Start 06/29/19 at 07:45 Methylprednisolone Sodium Succinate (SOLU-Medrol 40MG VIAL) 40 mg Q8HRS IV Last administered on 06/30/19 06:05; Start 06/29/19 at 08:30; Stop 06/30/19 at 08:33; Status DC Furosemide (Lasix) 40 mg DAILY IVP Last administered on 07/01/19at 08:40; Start 06/29/19 at 08:30; Stop 07/01/19 at 11:01; Status DC Lactobacillus Rhamnosus (Culturelle) 1 cap BID PO Last administered on 07/02/19at 08:50; Start 06/29/19 at 21:00; Stop 07/02/19 at 13:50; Status DC Polyethylene Glycol (miraLAX PACKET) 17 gm DAILY PO Last administered on 07/07/19at 09:14; Start 06/30/19 at 09:00 Polyethylene Glycol (miraLAX PACKET) 17 gm 1X ONCE PO Last administered on 06/29/19at 12:30; Start 06/29/19 at 11:00; Stop 06/29/19 at 11:01; Status DC Magnesium Hydroxide (Milk Of Magnesia) 2,400 mg 1X ONCE PO Last administered on 06/29/19at 12:29; Start 06/29/19 at 11:00; Stop 06/29/19 at 11:01; Status DC Magnesium Hydroxide (Milk Of Magnesia) 2,400 mg PRN DAILY PRN PO CONSTIPATION Last administered on 06/30/19at 15:08; Start 06/29/19 at 10:30 Bisacodyl (Dulcolax Supp) 10 mg PRN DAILY PRN GA CONSTIPATION Last administered on 06/30/19at 15:09; Start 06/29/19 at 10:30 Methylprednisolone Sodium Succinate (SOLU-Medrol 40MG VIAL) 40 mg Q12HR IV Last administered on 07/01/19at 08:41; Start 06/30/19 at 21:00; Stop 07/01/19 at 13:49; Status DC Darbepoetin Emmanuel (ARANESP for NON-DIALYSIS PTS) 60 mcg 1X ONCE SQ Last administered on 07/01/19at 11:11; Start 07/01/19 at 12:00; Stop 07/01/19 at 12:01; Status DC Furosemide (Lasix) 40 mg BID IVP Last administered on 07/01/19at 21:20; Start 07/01/19 at 11:00; Stop 07/02/19 at 12:12; Status DC Albuterol Sulfate (Ventolin Neb Soln) 2.5 mg 1X ONCE NEB ; Start 07/01/19 at 11:30; Stop 07/01/19 at 11:31; Status DC Albuterol/ Ipratropium (Duoneb) 3 ml RTQID NEB Last administered on 07/08/19at 19:55; Start 07/01/19 at 12:00 Info (Anti-Coagulation Monitoring By Pharmacy) 1 each PRN DAILY PRN MC SEE COMMENTS; Start 07/01/19 at 14:00 Hydralazine HCl (Apresoline) 50 mg TID PO Last administered on 07/01/19at 15:36; Start 07/01/19 at 15:15; Stop 07/01/19 at 15:56; Status DC Hydralazine HCl (Apresoline) 100 mg TID PO Last administered on 07/08/19at 20:41; Start 07/01/19 at 21:00 Apixaban (Eliquis) 5 mg BID PO Last administered on 07/08/19 20:41; Start 07/01/19 at 21:00 Furosemide 100 mg/ Sodium Chloride 100 ml @ 5 mls/hr CONT PRN IV SEE I/O RECORD Last administered on 07/07/19at 15:57; Start 07/02/19 at 12:00; Stop 07/08/19 at 10:16; Status DC Hydralazine HCl (Apresoline Inj) 10 mg PRN Q4HRS PRN IVP ELEVATED BP, SEE COMMENTS Last administered on 07/04/19at 07:23; Start 07/03/19 at 08:30 Hydralazine HCl (Apresoline) 10 mg TID PO ; Start 07/03/19 at 09:00; Status Cancel Isosorbide Mononitrate (Imdur) 30 mg DAILY PO Last administered on 07/08/19 09:10; Start 07/05/19 at 09:00 Darbepoetin Emmanuel (ARANESP for DIALYSIS PTS) 60 mcg WEEKLYHS SQ Last administered on 07/08/19 20:40; Start 07/08/19 at 21:00 Furosemide (Lasix) 40 mg BID94 PO Last administered on 07/08/19 16:35; Start 07/08/19 at 16:00 Active Scripts Active Lasix (Furosemide) 40 Mg Tablet 1 Tab PO DAILY 5 Days Guaifenesin 100 Mg/5 Ml Liquid 200 Mg PO PRN Q4HRS PRN 7 Days Ativan (Lorazepam) 0.5 Mg Tablet 0.5 Mg PO PRN Q4HRS PRN Hydrocodone-Apap 5-325 (Hydrocodone Bit/Acetaminophen) 1 Tab Tablet 1 Tab PO PRN Q4HRS PRN Amlodipine Besylate 10 Mg Tablet 10 Mg PO DAILY 30 Days Labetalol Hcl 200 Mg Tablet 300 Mg PO BID 30 Days Hydralazine Hcl 25 Mg Tablet 25 Mg PO TID 30 Days Clonidine Tts-2 (Clonidine) 1 Each Patch.tdwk 1 Patch TD WEEKLY 30 Days Reported Protonix (Pantoprazole Sodium) 40 Mg Tablet.dr 40 Mg PO DAILYAC Hydroxychloroquine Sulfate 200 Mg Tablet 200 Mg PO DAILY Multivitamins (Multivitamin) 1 Each Tablet 1 Tab PO DAILY Symbicort 160-4.5 Mcg Inhaler (Budesonide/Formoterol Fumarate) 10.2 Gm Hfa.aer.ad 1 Puff IH BID Spiriva (Tiotropium [place]) 18 Mcg Cap.w.dev 2 Inh IH DAILY Proair Hfa Inhaler (Albuterol Sulfate) 8.5 Gm Hfa.aer.ad 1 Puff INH PRN Q6HRS PRN Xarelto (Rivaroxaban) 10 Mg Tablet 10 Mg PO DAILY Atorvastatin Calcium 40 Mg Tablet 40 Mg PO HS Phoslo (Calcium Acetate) 667 Mg Capsule 1 Cap PO BIDWMEALS K-Tab ER (Potassium Chloride) 20 Meq Tablet.er 20 Meq PO DAILY Vitals/I & O Vital Sign - Last 24 Hours 07/08/19 07/08/19 07/08/19 07/08/19 08:00 09:10 09:11 09:11 Pulse 87 89 89 B/P (MAP) 164/89 164/89 164/89 O2 Delivery Room Air 07/08/19 07/08/19 07/08/19 07/08/19 09:12 11:03 11:23 14:27 Temp 97.7 97.7 Pulse 89 81 Resp 18 B/P (MAP) 164/89 145/78 (100) 116/60 Pulse Ox 96 O2 Delivery Room Air Room Air 07/08/19 07/08/19 07/08/19 07/08/19 15:00 15:46 19:20 19:56 Temp 97.9 98.7 97.9 98.7 Pulse 78 92 Resp 18 20 B/P (MAP) 120/68 (85) 126/71 (89) Pulse Ox 95 97 96 96 O2 Delivery Room Air Room Air Room Air Room Air 07/08/19 07/08/19 07/08/19 07/08/19 20:00 20:41 20:41 22:35 Temp 99.7 99.7 Pulse 92 92 89 Resp 20 B/P (MAP) 126/71 126/71 148/79 (102) Pulse Ox 93 O2 Delivery Room Air Room Air 07/09/19 02:45 Temp 98.8 98.8 Pulse 86 Resp 20 B/P (MAP) 149/82 (104) Pulse Ox 93 O2 Delivery Room Air Intake and Output 07/08/19 07/08/19 07/09/19 15:00 23:00 07:00 Intake Total 490 ml 230 ml Output Total 1125 ml 630 ml Balance 490 ml -1125 ml -400 ml Images Echo - The left ventricular systolic function is normal and the ejection fraction is within normal range. The Ejection Fraction is 65-70%. There is normal LV segmental wall motion. There is moderate concentric left ventricular hypertrophy. Aortic valve is not well visualized. No significant stenosis or regurgitation noted on doppler imaging. Cannot rule out flail mitral valve chord versus artifact. No significant regurgitation noted, therefore, it is likely an artifact, correlate with clinical exam. Doppler and Color Flow revealed trace regurgitation. RVSP of 51 mm Hg. 06/07: Cardiac Cath 1. Hemodynamics: Left ventricular end-diastolic pressure of 20 mmHg. No pullback gradient across the aortic valve. 2. Coronary angiography: a. The left main coronary artery arose from the left sinus of Valsalva, gave rise to the left anterior descending and left circumflex arteries and did not show any significant stenosis. b. The left anterior descending artery did not show any significant stenosis. c. The left circumflex artery did not show any significant stenosis. d. The right coronary artery was a large and dominant vessel arising from the right sinus of Valsalva that did not show any significant stenosis. Conclusion No significant coronary artery disease PAMELA HDZ MD Jul 09, 2019 07:56
[2019-07-09] MEDS: BUDESONIDE 0.5 MG/2 ML NEBU. NEB SCH (08:00)
[2019-07-09] MEDS: IPRATRPIUM/ALBUTEROL 0.5/2.5MG 3 ML NEBU. NEB SCH ×2 (08:00→12:00)
[2019-07-09] MEDS: POTASSIUM CHLORIDE 20 MEQ TABLET.ER. PO SCH (08:28)
[2019-07-09] MEDS: APIXABAN 5 MG TABLET. PO SCH (08:29)
[2019-07-09] MEDS: ISOSORBIDE MONONITRATE ER 30 MG TAB.ER.24H PO SCH (08:29)
[2019-07-09] MEDS: MULTIVITAMIN with MINERAL TABLET. PO SCH (08:29)
[2019-07-09] MEDS: CALCIUM ACETATE 667 MG CAPSULE PO SCH (08:29)
[2019-07-09] MEDS: HYDROXYCHLOROQUINE 200 MG TABLET PO SCH (08:30)
[2019-07-09] MEDS: FUROSEMIDE 40 MG TABLET. PO SCH (08:30)
[2019-07-09] MEDS: LABETALOL HCL 100 MG TABLET. PO SCH (08:30)
[2019-07-09] MEDS: PANTOPRAZOLE 40 MG TABLET.DR. PO SCH (08:30)
[2019-07-09] MEDS: POLYETHYLENE GLYCOL 3350 17 GM PACKET. PO SCH (08:31)
[2019-07-09] MEDS: amLODIPine BESYLATE 10 MG TABLET PO SCH (08:31)
[2019-07-09 11:00] VITALS: BP 127/83
--- NOTE | 2019-07-09 11:18 | PDOC ---
PULMONARY PROGRESS NOTES Subjective on RA, sob better, no cp, has occ cough Vitals Vital Signs Date Time Temp Pulse Resp B/P (MAP) Pulse Ox O2 Delivery O2 Flow Rate FiO2 07/09/19 11:00 97.6 77 20 127/83 (98) 96 Room Air 97.6 ROS: No Nausea, No Chest Pain, No Abdominal Pain, No Increase Cough General: Alert HEENT: Other Lungs: Other (decrease bs) Cardiovascular: S1, S2 Abdomen: Soft, Non-tender Neuro Exam: Alert, Oriented Extremities: Other (edema) Skin: Warm Labs Laboratory Tests Test 07/08/19 02:40 07/09/19 03:55 Sodium Level 144 mmol/L (136-145) 144 mmol/L (136-145) Potassium Level 4.0 mmol/L (3.5-5.1) 4.2 mmol/L (3.5-5.1) Chloride Level 106 mmol/L (98-107) 107 mmol/L (98-107) Carbon Dioxide Level 30 mmol/L (21-32) 29 mmol/L (21-32) Anion Gap 8 (6-14) 8 (6-14) Blood Urea Nitrogen 62 mg/dL (7-20) 65 mg/dL (7-20) Creatinine 2.8 mg/dL (0.6-1.0) 3.1 mg/dL (0.6-1.0) Estimated GFR (Cockcroft-Gault) 20.9 18.6 Glucose Level 92 mg/dL (70-99) 89 mg/dL (70-99) Calcium Level 9.1 mg/dL (8.5-10.1) 8.9 mg/dL (8.5-10.1) Phosphorus Level 4.2 mg/dL (2.6-4.7) 4.1 mg/dL (2.6-4.7) Albumin 2.2 g/dL (3.4-5.0) 2.2 g/dL (3.4-5.0) Magnesium Level 2.1 mg/dL (1.8-2.4) Laboratory Tests Test 07/09/19 03:55 Sodium Level 144 mmol/L (136-145) Potassium Level 4.2 mmol/L (3.5-5.1) Chloride Level 107 mmol/L (98-107) Carbon Dioxide Level 29 mmol/L (21-32) Anion Gap 8 (6-14) Blood Urea Nitrogen 65 mg/dL (7-20) Creatinine 3.1 mg/dL (0.6-1.0) Estimated GFR (Cockcroft-Gault) 18.6 Glucose Level 89 mg/dL (70-99) Calcium Level 8.9 mg/dL (8.5-10.1) Phosphorus Level 4.1 mg/dL (2.6-4.7) Magnesium Level 2.1 mg/dL (1.8-2.4) Albumin 2.2 g/dL (3.4-5.0) Medications Active Scripts Medications Dose Route/Sig Max Daily Dose Days Date Category Amlodipine Besylate 10 Mg Tablet 10 Mg PO DAILY 30 06/13/19 Rx Labetalol Hcl 200 Mg Tablet 300 Mg PO BID 30 06/13/19 Rx Hydralazine Hcl 25 Mg Tablet 25 Mg PO TID 06/13/19 Rx Clonidine Tts-2 (Clonidine) 1 Each Patch.tdwk 1 Patch TD WEEKLY 06/13/19 Rx Protonix (Pantoprazole Sodium) 40 Mg Tablet.dr 40 Mg PO DAILYAC 06/05/19 Reported Hydroxychloroquine Sulfate 200 Mg Tablet 200 Mg PO DAILY 06/05/19 Reported Multivitamins (Multivitamin) 1 Each Tablet 1 Tab PO DAILY 06/05/19 Reported Symbicort 160-4.5 Mcg Inhaler (Budesonide/Formoterol Fumarate) 10.2 Gm Hfa.aer.ad 1 Puff IH BID 12/13/18 Reported Spiriva (Tiotropium [place]) 18 Mcg Cap.w.dev 2 Inh IH DAILY 12/13/18 Reported Proair Hfa Inhaler (Albuterol Sulfate) 8.5 Gm Hfa.aer.ad 1 Puff INH PRN Q6HRS PRN 12/13/18 Reported Xarelto (Rivaroxaban) 10 Mg Tablet 10 Mg PO DAILY 12/13/18 Reported Atorvastatin Calcium 40 Mg Tablet 40 Mg PO HS 12/13/18 Reported Phoslo (Calcium Acetate) 667 Mg Capsule 1 Cap PO BIDWMEALS 06/11/14 Reported K-Tab ER (Potassium Chloride) 20 Meq Tablet.er 20 Meq PO DAILY 05/23/14 Reported Impression . IMPRESSION: 1. Acute respiratory failure, MOSTLY CHF 2. Abnormal chest x-ray.c/w CHF, improving 3. Acute exacerbation of chronic obstructive pulmonary disease. 4. Acute diastolic congestive heart failure. 5. Chronic kidney disease. 6. Ex-smoker. 7. Paroxysmal atrial fibrillation. 8. History of pulmonary embolism. 9. Anemia. 10. Hypertension. 11. LOWE EXT VENOUS DOPPLER NEGATIVE Plan . ON LASIX PER NEPHRO, monitor k, cr. Pt has CKD, increase Cr today cont BD WILL CONTINUE THE SAME DOUBT PE CLINICAL SUSPICION IS LOW ON ANTICOUGULATION FOR AF Pulmonary status stable for dc discussed w rn, pt GISSELL GAINES MD Jul 09, 2019 11:18
--- NOTE | 2019-07-09 11:23 | PDOC ---
Renal-Progress Notes Subjective Notes Notes NO NEW COMPLAINTS History of Present Illness Hx of present illness BETTER Vitals Vitals Vital Signs Date Time Temp Pulse Resp B/P (MAP) Pulse Ox O2 Delivery O2 Flow Rate FiO2 07/09/19 11:00 97.6 77 20 127/83 (98) 96 Room Air 97.6 Weight Weight [ ] I.O. Intake and Output Intake and Output 07/09/19 07:00 Intake Total 720 ml Output Total 1755 ml Balance -1035 ml Intake Oral 720 ml Output Urine Total 1755 ml Labs Labs Laboratory Tests Test 07/09/19 03:55 Sodium Level 144 mmol/L (136-145) Potassium Level 4.2 mmol/L (3.5-5.1) Chloride Level 107 mmol/L (98-107) Carbon Dioxide Level 29 mmol/L (21-32) Anion Gap 8 (6-14) Blood Urea Nitrogen 65 mg/dL (7-20) Creatinine 3.1 mg/dL (0.6-1.0) Estimated GFR (Cockcroft-Gault) 18.6 Glucose Level 89 mg/dL (70-99) Calcium Level 8.9 mg/dL (8.5-10.1) Phosphorus Level 4.1 mg/dL (2.6-4.7) Magnesium Level 2.1 mg/dL (1.8-2.4) Albumin 2.2 g/dL (3.4-5.0) Micro Micro Microbiology 06/28/19 Urine Culture - Final, Complete 06/28/19 Urine Culture Result 1 (JANINE) - Final, Complete 06/28/19 Blood Culture - Final, Complete NO GROWTH AFTER 5 DAYS Review of Systems Constitutional: yes: alert Ears/Nose/Throat: Yes: no symptom reported Eyes: Yes: no symptom reported Pulmonary: Yes no symptom reported Cardiovascular: Yes edema Gastrointestional: Yes: no symptom reported Musculoskeletal: Yes: no symptom reported Psychiatric/Neurological: Yes: no symptom reported Physical Exam General Appearance: no apparent distress Skin: warm Respiratory: decreased breath sounds Heart: S1S2 Abdomen: soft, bowel sounds present Genitourinary: bladder flat Extremities: pulses present Neurology: alert, oriented, follow commands Assessment Assessment IMP RIYA-STABLE UP TO 3.1 DUE TO DIURETICS CKD STAGE 3B TO 4 LE EDEMA-ESSENTIALLY RESOLVED HYPERNATREMIA-RESOLVED CHF-PROB [id number] INCREASED PAP AND MILD AV STENOSIS HX OF SLE-SEES RHEUMATOLOGY-ON SAUMYA PER HEME OP MEMBRANOUS NEPHROPATHY-BX PROVEN WITH PROTEINURIA ANEMIA-CHRONIC DZ AND DUE TO CKD IRON DEFICIENCY PLAN DECREASE LASIX TO ONCE DAILY 1 LITER OF SALINE IV VENOFER ON ARANESP PP TRANSFER TOMORROW NOTED WILL FOLLOW UP OP WITH MY PARTNER DR CREWS AFTER D/C JORGE ALBERTO HI MD Jul 09, 2019 11:23
[2019-07-09] MEDS ORDERED: IV NORMAL SALINE 1000ML BAG 1,000 ML IV ONE (11:30)
--- NOTE | 2019-07-09 12:03 | NUR ---
SS following up with discharge planning. Pt accepted at [facility], ; fax [phone], pending insurance authorization. SS will await insurance determination and will proceed accordingly with discharge planning.
[2019-07-09] MEDS ORDERED: FUROSEMIDE 40 MG TABLET. PO SCH (12:30)
--- NOTE | 2019-07-09 12:31 | PDOC ---
CARDIO Progress Notes Date and Time Date of Service 07/09/19 Time of Evaluation 1220 Subjective Subjective: No Chest Pain, No shortness of breath, No Palpitations Vitals Vitals Vital Signs Date Time Temp Pulse Resp B/P (MAP) Pulse Ox O2 Delivery O2 Flow Rate FiO2 07/09/19 11:00 97.6 77 20 127/83 (98) 96 Room Air 97.6 Weight Weight [ ] Input and Output Intake and Output Intake and Output 07/09/19 06:59 Intake Total 720 ml Output Total 1755 ml Balance -1035 ml Intake Oral 720 ml Output Urine Total 1755 ml Laboratory Labs Laboratory Tests Test 07/09/19 03:55 Sodium Level 144 mmol/L (136-145) Potassium Level 4.2 mmol/L (3.5-5.1) Chloride Level 107 mmol/L (98-107) Carbon Dioxide Level 29 mmol/L (21-32) Anion Gap 8 (6-14) Blood Urea Nitrogen 65 mg/dL (7-20) Creatinine 3.1 mg/dL (0.6-1.0) Estimated GFR (Cockcroft-Gault) 18.6 Glucose Level 89 mg/dL (70-99) Calcium Level 8.9 mg/dL (8.5-10.1) Phosphorus Level 4.1 mg/dL (2.6-4.7) Magnesium Level 2.1 mg/dL (1.8-2.4) Albumin 2.2 g/dL (3.4-5.0) Microbiology Micro Microbiology 06/28/19 Urine Culture - Final, Complete 06/28/19 Urine Culture Result 1 (JANINE) - Final, Complete 06/28/19 Blood Culture - Final, Complete NO GROWTH AFTER 5 DAYS Review of Systems Constitutional: yes: alert Ears/Nose/Throat: Yes: no symptom reported Eyes: Yes: no symptom reported Pulmonary: Yes no symptom reported Cardiovascular: Yes edema Gastrointestional: Yes: no symptom reported Musculoskeletal: Yes: no symptom reported Psychiatric/Neurological: Yes: no symptom reported Physical Exam HEENT: Neck Supple W Full Motion Chest: Symmetric LUNGS: Other (diminished bases) Heart: S1S2, RRR (SR), murmurs (3/6 systolic murmur to FRANTZ border) Abdomen: Soft N/T Extremities: Other (trace bilateral LE edema ) Neurology: alert, oriented, follow commands Assessment Assessment 1. Acute respiratory failure with acute CHF, AECOPD, and anemia 2. Acute on chronic CHF; appears compensated. 3. PAFIB: maintaining SR. 4. Malignant HTN: better controlled. 5. Hyperlipidemia; statin therapy 6. , mild 7. RIYA on CKD: more uremic today. Cr up to 3.1. IVFs initiated 8. COPD/moderate pulmonary HTN: stable 9. Anemia, chronic: Hgb stable at 7.7 Recommendations Lasix therapy as per renal Continue with current BP regimen. No ACEi/ARB at this time with SHEILA Andrews for stroke prevention Supportive care. XIANG GRAFF APRN Jul 09, 2019 12:31
[2019-07-09] MEDS ORDERED: IRON SUCROSE COMPLEX 200 MG in IV NORMAL SALINE 100ML 100 ML IV ONE (13:00)
--- NOTE | 2019-07-09 13:38 | SNU/HH DC ---
DISCHARGE ORDERS DISCHARGE INFORMATION: DISCHARGE DATE: Jul 09, 2019 FINAL DIAGNOSIS Problems Medical Problems: (1) Acute exacerbation of CHF (congestive heart failure) Status: Acute (2) Shortness of breath Status: Acute CONDITION ON DISCHARGE: Stable CODE STATUS: Code Status: Full LONG-TERM: SNF STAY <30 DAYS: Yes POST DISCHARGE ORDERS: ACTIVITY ORDERS: Activity as tolerated WEIGHT BEARING STATUS: No restrictions BATHING ORDERS: Shower-keep dressing dry DIET AFTER DISCHARGE: Renal CHECKS AFTER DISCHARGE: CHECKS AFTER DISCHARGE: Check blood press - daily, Check your Temp as needed, Weigh Yourself Daily FOLLOW-UP: PHYSICIAN FOLLOW-UP: BMP 1 week - we placed on lasix 40 PO qd x 5 days for mild chf on CXR TREATMENT/EQUIPMENT ORDERS: Physical Therapy For: Evalulation/Treatment Occupational Therapy For: Evaluation/Treatment DISCHARGE MEDICATIONS: Home Meds Active Scripts [DARBEPOETIN CARRI for DIALYSIS] 60 MCG/0.3 ML DISP.SYRIN No Conflict Check, 60 MCG SQ WEEKLYHS for Anemia of chronic renal diseas for 30 Days, #4 DIS.SYR Prov:PAMELA HDZ MD 07/09/19 Furosemide (LASIX) 40 Mg Tablet, 1 TAB PO DAILY for mild chf on cxr for 5 Days, #5 TAB 0 Refills Prov:SHARA SHEEHAN MD 07/01/19 Guaifenesin (GUAIFENESIN) 100 Mg/5 Ml Liquid, 200 MG PO PRN Q4HRS PRN for COUGH for 7 Days, LIQUID Prov:SHARA SHEEHAN MD 07/01/19 Lorazepam (ATIVAN) 0.5 Mg Tablet, 0.5 MG PO PRN Q4HRS PRN for ANXIETY / AGITATION, #30 TAB Prov:SHARA SHEEHAN MD 07/01/19 Hydrocodone Bit/Acetaminophen (HYDROCODONE-APAP 5-325 ) 1 Tab Tablet, 1 TAB PO PRN Q4HRS PRN for MODERATE-SEVERE PAIN, #30 TAB Prov:SHARA SHEEHAN MD 07/01/19 Amlodipine Besylate (AMLODIPINE BESYLATE) 10 Mg Tablet, 10 MG PO DAILY for HTN for 30 Days, #30 TAB Prov:PAMELA HDZ MD 06/13/19 Labetalol Hcl (LABETALOL HCL) 200 Mg Tablet, 300 MG PO BID for HTN for 30 Days, #90 TAB Prov:PAMELA HDZ MD 06/13/19 Hydralazine Hcl (HYDRALAZINE HCL) 25 Mg Tablet, 25 MG PO TID for HTN for 30 Days, #90 TAB Prov:PAMELA HDZ MD 06/13/19 Clonidine (CLONIDINE TTS-2 ) 1 Each Patch.tdwk, 1 PATCH TD WEEKLY for HTN for 30 Days, #4 PATCH Prov:PAMELA HDZ MD 06/13/19 Reported Medications Pantoprazole Sodium (PROTONIX ) 40 Mg Tablet.dr, 40 MG PO DAILYAC for GERD, TAB 06/05/19 Hydroxychloroquine Sulfate (HYDROXYCHLOROQUINE SULFATE) 200 Mg Tablet, 200 MG PO DAILY for , TAB 06/05/19 Multivitamin (MULTIVITAMINS) 1 Each Tablet, 1 TAB PO DAILY for , #90 TAB 3 Refills 06/05/19 Budesonide/Formoterol Fumarate (SYMBICORT 160-4.5 MCG INHALER) 10.2 Gm Hfa.aer.ad, 1 PUFF IH BID, INHALER 12/13/18 Tiotropium [place] (SPIRIVA) 18 Mcg Cap.w.dev, 2 INH IH DAILY, #1 INH 0 Refills 12/13/18 Albuterol Sulfate (PROAIR HFA INHALER) 8.5 Gm Hfa.aer.ad, 1 PUFF INH PRN Q6HRS PRN for SHORTNESS OF BREATH, INHALER 0 Refills 12/13/18 Rivaroxaban (XARELTO) 10 Mg Tablet, 10 MG PO DAILY, TAB 12/13/18 Atorvastatin Calcium (ATORVASTATIN CALCIUM) 40 Mg Tablet, 40 MG PO HS for FOR CHOLESTEROL, #30 TAB 0 Refills 12/13/18 Calcium Acetate (PHOSLO) 667 Mg Capsule, 1 CAP PO BIDWMEALS, #90 CAP 5 Refills 06/11/14 Potassium Chloride (K-Tab ER) 20 Meq Tablet.er, 20 MEQ PO DAILY, TAB.SR 05/23/14 PAMELA HDZ MD Jul 09, 2019 13:38
[2019-07-09] MEDS ORDERED: DARBEPOETIN ALFA IN POLYSORBAT SQ (13:39)
--- NOTE | 2019-07-09 14:39 | NUR ---
SS following up with discharge planning. Insurance authorization received for snf unit. Discharge orders phoned and faxed to [facility], ; fax [phone]. Pt will discharge today and go to [facility] between 1600 and 1630. [facility] to provide transportation. Pt and pt's RN notified.
[2019-07-09 15:00] VITALS: BP 148/81
--- NOTE | 2019-07-09 16:24 | NUR ---
Discharge Note: INA GRANT Discharge instructions and discharge home medications reviewed with Jennifer at [facility] and a copy given. All questions have been answered and understanding verbalized.
--- NOTE | 2019-07-09 16:59 | PDOC3 ---
Discharge Summary Visit Information Date of Admission: Jun 28, 2019 Date of Discharge: Jul 09, 2019 Admitting Diagnosis: Acute chf exacerbation Final Diagnosis Problems Medical Problems: (1) Acute exacerbation of CHF (congestive heart failure) Status: Acute (2) Shortness of breath Status: Acute Brief Hospital Course Allergies Allergies Coded Allergies Type Severity Reaction Last Updated Verified No Known Drug Allergies 05/23/14 No Vital Signs Vital Signs Date Time Temp Pulse Resp B/P (MAP) Pulse Ox O2 Delivery O2 Flow Rate FiO2 07/09/19 15:00 97.8 77 20 148/81 (103) 94 Room Air 97.8 Lab Results Laboratory Tests Test 07/08/19 02:40 07/09/19 03:55 Sodium Level 144 mmol/L (136-145) 144 mmol/L (136-145) Potassium Level 4.0 mmol/L (3.5-5.1) 4.2 mmol/L (3.5-5.1) Chloride Level 106 mmol/L (98-107) 107 mmol/L (98-107) Carbon Dioxide Level 30 mmol/L (21-32) 29 mmol/L (21-32) Anion Gap 8 (6-14) 8 (6-14) Blood Urea Nitrogen 62 mg/dL (7-20) 65 mg/dL (7-20) Creatinine 2.8 mg/dL (0.6-1.0) 3.1 mg/dL (0.6-1.0) Estimated GFR (Cockcroft-Gault) 20.9 18.6 Glucose Level 92 mg/dL (70-99) 89 mg/dL (70-99) Calcium Level 9.1 mg/dL (8.5-10.1) 8.9 mg/dL (8.5-10.1) Phosphorus Level 4.2 mg/dL (2.6-4.7) 4.1 mg/dL (2.6-4.7) Albumin 2.2 g/dL (3.4-5.0) 2.2 g/dL (3.4-5.0) Magnesium Level 2.1 mg/dL (1.8-2.4) Laboratory Tests Test 07/09/19 03:55 Sodium Level 144 mmol/L (136-145) Potassium Level 4.2 mmol/L (3.5-5.1) Chloride Level 107 mmol/L (98-107) Carbon Dioxide Level 29 mmol/L (21-32) Anion Gap 8 (6-14) Blood Urea Nitrogen 65 mg/dL (7-20) Creatinine 3.1 mg/dL (0.6-1.0) Estimated GFR (Cockcroft-Gault) 18.6 Glucose Level 89 mg/dL (70-99) Calcium Level 8.9 mg/dL (8.5-10.1) Phosphorus Level 4.1 mg/dL (2.6-4.7) Magnesium Level 2.1 mg/dL (1.8-2.4) Albumin 2.2 g/dL (3.4-5.0) Brief Hospital Course Ms Caruso is a 58yo F w/ PMHx AFIB, HTN, Hyperlipidemia, COPD, CKD3, Pulmonary embolus, APS/lupus admitted for complains of shortness of breath, cough, wheezing, and lower extremity edema. She described the pain to her left chest as punching sensation lasting few seconds intermittent. No frequent dizziness and no palpitations. She has been noted with PAFIB no associated nausea, vomiting. No jaw or arm discomfort. No frequent indigestion. Chest x-ray showed increased patchy airspace disease in the right upper lobe and left hilar region along with trace right pleural effusion with adjacent compressive atelectasis versus infiltrate. Found with BP 172/94, admitted for hypertensive emergency. BP has been coming down over the course of the weekend. Seen by nephrology, cardiology and lmonology. 07/07: Still a little mentally foggy today, but alert and oriented. She is feeling very weak today. No change in BUN or Cr, though not at baseline 07/08: Required 6 total days of lasix gtt, doing well, legs better, lytes holding. Dw/ nephro will change to PO lasix and d/c martinez, monitor for another day Cr up to 3.1 day of d/c, Still some leg edema, but way better. Off O2. Given 1L prior to d/c to mitigate her diuresis per nephrology. Has nephrology and cardiology f/u Problem list - Acute respiratory failure, multifactorial in etiology including acute diastolic congestive heart failure, acute exacerbation of chronic obs tructive pulmonary disease? thromboembolic disease versus others. Abnormal chest x-ray. Acute exacerbation of chronic obstructive pulmonary disease. Acute diastolic congestive heart failure. Chronic kidney disease. Ex-smoker. Paroxysmal atrial fibrillation. History of pulmonary embolism. Anemia. Hypertension. Acute precip drop hgb - likely sec to CKD Normocytic, chronic anemia Metabolic enceph Leg edema Hypertensive urgency Chest pain, resolved Coronary calcifications per recent CT. C showed No significant coronary artery disease on 06/07/19 Headache Findings a small vessel ischemic change, technically age indeterminate without prior imaging for comparison. Lupus/antiphospholipid antibody syndrome with past PE HYPERTENSIVE ENCEPHALOPATHY CKD STAGE 3 No Doppler evidence of greater than 60% stenosis within the renal arteries.Echogenic renal parenchyma, a finding which can be seen with medical renal disease.cr not at goal Small simple appearing renal cysts. Acute on chronic diastolic CHF Valvular insufficiency/diastolic murmur PAFIB - maintaining SR HLP Anemia of chronic disease with prior hx of thrombocytopenia and leukopenia: ruled as an effect from immunosuppression Hx of RA - not sure if she is still on imuran, but claims not being on steroids nor methotrexate anymore. Thyromegaly/nodules: per CT COPD Pulmonary HTN PLAN: HCR on d/c for SNF on hydralazine 100 TID PO Martinez cath inserted 07/12 bec of lasix gtt - D/c'd on 07/08 dw her and aide at bedside. Her aide has helped her fill out insurance paperwork. I can't help but note that she has checked a box to decline health insurance and vision coverage and signed this. Discharge Information Follow Up: Weeks (1) Disposition/Orders: D/C to Another Facility (HCR) Scheduled Amlodipine Besylate (Amlodipine Besylate) 10 Mg Tablet, 10 MG PO DAILY for HTN for 30 Days, #30 Prescribed by: PAMELA HDZ MD on 06/13/19 0808 Last Action: Continued on 06/28/19 1454 by LAMONT ZARATE MD Atorvastatin Calcium (Atorvastatin Calcium) 40 Mg Tablet, 40 MG PO HS for FOR CH OLESTEROL, #30 Ref 0 (Reported) Entered as Reported by: MJ G[facility] on 12/13/18 1401 Last Action: Continued on 06/28/19 1454 by LAMONT ZARATE MD Budesonide/Formoterol Fumarate (Symbicort 160-4.5 Mcg Inhaler) 10.2 Gm Hfa.aer.ad, 1 PUFF IH BID, (Reported) Entered as Reported by: MJ GOMES [facility] on 12/13/18 1403 Last Action: Converted on 06/28/191453 by LAMONT ZARATE MD Calcium Acetate (Phoslo) 667 Mg Capsule, 1 CAP PO BIDWMEALS, #90 Ref 5 (Reported) Entered as Reported by: MARSHALL NESS on 06/11/14 0938 Last Action: Continued on 06/28/191453 by LAMONT ZARATE MD Clonidine (Clonidine Tts-2 ) 1 Each Patch.tdwk, 1 PATCH TD WEEKLY for HTN for 30 Days, #4 Prescribed by: PAMELA HDZ MD on 06/13/19807 Last Action: Continued on 06/28/191453 by LAMONT ZARATE MD Furosemide (Lasix) 40 Mg Tablet, 1 TAB PO DAILY for mild chf on cxr for 5 Days, #5 Ref 0 Prescribed by: SHARA SHEEHAN on 07/01/19958 Hydralazine Hcl (Hydralazine Hcl) 25 Mg Tablet, 25 MG PO TID for HTN for 30 Days, #90 Prescribed by: PAMELA HDZ MD on 06/13/19807 Last Action: Continued on 06/28/191453 by LAMONT ZARATE MD Hydroxychloroquine Sulfate (Hydroxychloroquine Sulfate) 200 Mg Tablet, 200 MG PO DAILY for , (Reported) Entered as Reported by: Bernadette Richey on 06/05/192057 Last Action: Continued on 06/28/191453 by LAMONT ZARATE MD Labetalol Hcl (Labetalol Hcl) 200 Mg Tablet, 300 MG PO BID for HTN for 30 Days, #90 Prescribed by: PAMELA HDZ MD on 06/13/19807 Last Action: Continued on 06/28/191453 by LAMONT ZARATE MD Multivitamin (Multivitamins) 1 Each Tablet, 1 TAB PO DAILY for , #90 Ref 3 (Reported) Entered as Reported by: Bernadette Richey on 06/05/192057 Last Action: Converted on 06/28/191453 by LAMONT ZARATE MD Pantoprazole Sodium (Protonix ) 40 Mg Tablet.dr, 40 MG PO DAILYAC for GERD, (Reported) Entered as Reported by: Bernadette Richey on 06/05/192057 Last Action: Continued on 06/28/191453 by LAMONT ZARATE MD Potassium Chloride (K-Tab ER) 20 Meq Tablet.er, 20 MEQ PO DAILY, (Reported) Entered as Reported by: MITRA MORALES on 05/23/14 0739 Last Action: Converted on 06/28/191453 by LAMONT ZARATE MD Rivaroxaban (Xarelto) 10 Mg Tablet, 10 MG PO DAILY, (Reported) Entered as Reported by: MJ GOMES [facility] on 12/13/181401 Last Action: Continued on 06/28/191453 by LAMONT ZARATE MD Tiotropium [place] (Spiriva) 18 Mcg Cap.w.dev, 2 INH IH DAILY, #1 Ref 0 (Reported) Entered as Reported by: MJ GOMES [facility] on 12/13/181402 Last Action: Converted on 06/28/191453 by LAMONT ZARATE MD [Darbepoetin Emmanuel In Polysorbat] 60 MCG/0.3 ML DISP.SYRIN, 60 MCG SQ WEEKLYHS for Anemia of chronic renal diseas for 30 Days, #4 Prescribed by: PAMELA HDZ MD on 07/09/19 1339 Scheduled PRN Albuterol Sulfate (Proair Hfa Inhaler) 8.5 Gm Hfa.aer.ad, 1 PUFF INH PRN Q6HRS PRN for SHORTNESS OF BREATH, Ref 0 (Reported) Entered as Reported by: MJ GOMES [facility] on 12/13/181402 Last Action: Continued on 06/28/191453 by LAMONT ZARATE MD Guaifenesin (Guaifenesin) 100 Mg/5 Ml Liquid, 200 MG PO PRN Q4HRS PRN for COUGH for 7 Days Prescribed by: SHARA SHEEHAN on 07/01/19 0959 Hydrocodone Bit/Acetaminophen (Hydrocodone-Apap 5-325 ) 1 Tab Tablet, 1 TAB PO PRN Q4HRS PRN for MODERATE-SEVERE PAIN, #30 Prescribed by: SHARA SHEEHAN on 07/01/19 0959 Lorazepam (Ativan) 0.5 Mg Tablet, 0.5 MG PO PRN Q4HRS PRN for ANXIETY / AGITATION, #30 Prescribed by: SHARA SHEEHAN on 07/01/19 0959 PAMELA HDZ MD Jul 09, 2019 16:59
== END 2019-07-09 16:36 | DRG 177 ==
LOC: ER 11:23 → 2 NORTH 13:56
PROVIDERS: ADMIT Family Medicine; ATTEND Family Medicine
PROC: 5A09357 Assistance with Respiratory Ventilation, Less than 24 Consecutive Hours, Continuous Positive Airway Pressure (ICD-10-PCS; principal; 2019-07-03)
DX: J15.6 Pneumonia due to other Gram-negative bacteria (principal); I50.33 Acute on chronic diastolic (congestive) heart failure; J96.21 Acute and chronic respiratory failure with hypoxia; I67.4 Hypertensive encephalopathy; I13.0 Hypertensive heart and chronic kidney disease with heart failure and stage 1 through stage 4 chronic kidney disease, or unspecified chronic kidney disease; N17.9 Acute kidney failure, unspecified; I16.1 Hypertensive emergency; J44.1 Chronic obstructive pulmonary disease with (acute) exacerbation; J44.0 Chronic obstructive pulmonary disease with (acute) lower respiratory infection; D68.61 Antiphospholipid syndrome; N18.4 Chronic kidney disease, stage 4 (severe); I42.0 Dilated cardiomyopathy; E87.0 Hyperosmolality and hypernatremia; N02.2 Recurrent and persistent hematuria with diffuse membranous glomerulonephritis; E78.00 Pure hypercholesterolemia, unspecified; I48.0 Paroxysmal atrial fibrillation; K21.9 Gastro-esophageal reflux disease without esophagitis; M19.90 Unspecified osteoarthritis, unspecified site; M06.9 Rheumatoid arthritis, unspecified; E78.5 Hyperlipidemia, unspecified; N28.1 Cyst of kidney, acquired; D63.1 Anemia in chronic kidney disease; I27.20 Pulmonary hypertension, unspecified; M32.9 Systemic lupus erythematosus, unspecified; E61.1 Iron deficiency; J18.1 Lobar pneumonia, unspecified organism; K59.00 Constipation, unspecified; Z86.711 Personal history of pulmonary embolism; Z82.49 Family history of ischemic heart disease and other diseases of the circulatory system; Z87.891 Personal history of nicotine dependence
CPT/HCPCS: 36415; 36600; 71045; 71046; 78582; 80048; 80053; 80069; 81001; 82805; 83540; 83550; 83605; 83735; 83880; 84484; 85014; 85018; 85025; 85379; 85610; 85730; 86850; 86900; 86901; 86920; 87040; 87086; 87493; 93005; 93970; 94640; 94760; 96374; A9540; A9558; J0360; J0881; J0882; J1650; J1756; J1940; J2020; J2543; J2920; J7030; J7613; J7620; J7626; 97110; 97116; 97530; 97535; 99285-25; G0378

== ENCOUNTER 2019-09-10 20:21 | Inpatient (IN) | payer BC ==
[~2019-09-10] VITALS: Ht 167.6 cm; Wt 57.6 kg
[~2019-09-10 20:21] MED LIST changes: +DARBEPOETIN ALFA IN POLYSORBAT SQ; +FURO-68 PO; +GUAI100L12 PO; +HYDR-2761 PO; +LORA0.5T96 PO
[2019-09-10] MEDS ORDERED: LABETALOL 20 MG/4 ML DISP.SYRIN. IVP ONE ×3 (21:30→23:45)
--- NOTE | 2019-09-10 21:34 | RAD ---
Examination: CT head and cervical spine without contrast CT HEAD INDICATION: Fall COMPARISON: 06/05/2019 Exposure: One or more of the following individualized dose reduction techniques were utilized for this examination: 1. Automated exposure control 2. Adjustment of the mA and/or kV according to patient size 3. Use of iterative reconstruction technique TECHNIQUE: 5 mm contiguous axial images were obtained from the skull base to the vertex in both bone and soft tissue algorithm. FINDINGS: No abnormal attenuation within the brain parenchyma. No evidence of acute intracranial hemorrhage. No extra-axial fluid collections. No mass effect or midline shift. Ventricular size is appropriate. Basal cisterns are patent. No fractures identified.Holm-white differentiation is preserved.Globes and orbits are within normal limits. Paranasal sinuses and mastoid air cells are clear. Tiny calcifications identified in the bilateral parotid glands. IMPRESSION: No acute intracranial findings. CT CERVICAL SPINE History: Fall COMPARISON: None Available. Technique: 2.5 mm contiguous axial images were obtained from the skull base through the cervicothoracic junction in both bone and soft tissue algorithm. Additional sagittal and coronal reconstructions were also performed. FINDINGS: Vertebral body height and alignment are maintained. Cervical lordosis is preserved. The lateral masses of C1 are aligned upon C2. No fractures identified. The bony canal is patent throughout. Moderate intervertebral disc height loss identified in the cervical spine particularly at C4-C5, C5-C6, C6-C7 vertebral levels. The bilateral facets are well aligned. The paraspinous soft tissues are unremarkable. Visualized intracranial contents are unremarkable. Lung apices are clear. 1 cm hypodensity identified in the right lobe of thyroid gland. IMPRESSION: 1. No acute fracture of the cervical spine. Correlate clinically. 2. Moderate degenerative changes cervical spine. 3. 1 cm hypodensity identified in the right lobe of thyroid gland. Recommend nonemergent ultrasound thyroid. Electronically signed by: Carlito Katz MD (09/10/2019 9:31 PM) [facility]
[2019-09-10] MEDS ORDERED: DEXTROSE 50% 25 GM / 50ML DISP.SYRIN. IV ONE ×3 (21:37→23:45)
[2019-09-10 22:03] LABS: BASO % 1 % (0-3); EOS % 0 % (0-3); HEMATOCRIT 31.4 % (36.0-47.0); LYMPH # 1.1 x10^3/uL (1.0-4.8); LYMPH % 16 % (24-48); MEAN CORPUSCULAR HEMOGLOBIN 29 pg (25-35); MEAN CORPUSCULAR HGB CONC 32 g/dL (31-37); MEAN CORPUSCULAR VOLUME 90 fL (79-100); MONO # 0.5 x10^3/uL (0.0-1.1); MONO % 8 % (0-9); NEUT # 5.2 x10^3/uL (1.8-7.7); NEUT % 75 % (31-73); PLATELET COUNT 176 x10^3/uL (140-400); RED BLOOD COUNT 3.48 x10^6/uL (3.50-5.40); RED CELL DISTRIBUTION WIDTH 17.5 % (11.5-14.5); WHITE BLOOD COUNT 6.9 x10^3/uL (4.0-11.0)
[2019-09-10 22:04] LABS: BILIRUBIN,URINE NEGATIVE (NEG); CLARITY,URINE CLEAR; COLOR,URINE YELLOW; NITRITE,URINE NEGATIVE (NEG); PH,URINE 5.5; PROTEIN,URINE >=300 mg/dL (NEG-TRACE); UROBILINOGEN,URINE 0.2 mg/dL (0.2 mg/dL)
[2019-09-10 22:10] LABS: CALCIUM 9.6 mg/dL (8.5-10.1); CREATININE 3.1 mg/dL (0.6-1.0); GFR 18.6; POTASSIUM 5.6 mmol/L (3.5-5.1)
[2019-09-10 22:10] LABS: SQUAMOUS EPITHELIAL CELL,UR OCC /LPF
[2019-09-10 22:11] LABS: AMORPHOUS SEDIMENT,UR PRESENT /HPF; BACTERIA,URINE 0 /HPF (0-FEW); WBC,URINE RARE /HPF (0-4)
[2019-09-10 22:15] LABS: ALBUMIN 2.9 g/dL (3.4-5.0); ALBUMIN/GLOBULIN RATIO 0.7 (1.0-1.7); TOTAL BILIRUBIN 0.4 mg/dL (0.2-1.0); TOTAL PROTEIN 7.1 g/dL (6.4-8.2)
[2019-09-10] MEDS ORDERED: IV NORMAL SALINE 1000ML BAG 1,000 ML IV SCH (22:15)
--- NOTE | 2019-09-10 22:33 | PHYS DOC ---
Past Medical History Past Medical History: High Cholesterol, Hypertension, Other Additional Past Medical Histor: LUPUS Past Surgical History: No Surgical History Alcohol Use: None Drug Use: None Adult General Chief Complaint Chief Complaint: MECHANICAL FALL HPI HPI 59-year-old female presents to the emergency department via EMS after a fall. Patient apparently got home around 4 PM she was found by her sister around 6 PM after a fall. Patient was out in the elements at that time hypothermic upon initial EMS arrival. She is alert and oriented, she was hypoglycemic with a blood sugar of 60 when she got to the emergency department. Patient was provided with 1 amp of D50. Patient denies any chest pain, shortness of breath, nausea or vomiting/abdominal pain. She does have bilateral lower extremity pain. Patient's lower extremities are cold on examination from the knee down, she does have pul ses however non-palpable there is obtained via Doppler. Patient has underlying history of hypertension, chronic kidney disease. Review of Systems Review of Systems Constitutional: Denies fever or chills [] Respiratory: Denies cough or shortness of breath [] Cardiovascular: No additional information not addressed in HPI [] GI: Denies abdominal pain, nausea, vomiting, bloody stools or diarrhea [] : Denies dysuria or hematuria [] Musculoskeletal: bilateral lower ext pain, edema Integument: Denies rash or skin lesions [] Neurologic: Denies headache, focal weakness or sensory changes [] All other systems were reviewed and found to be within normal limits, except as documented in this note. Current Medications Current Medications Current Medications Medications (Trade) Dose Ordered Sig/Blaine Start Time Stop Time Status Last Admin Dose Admin Dextrose (Dextrose 50%-Water Syringe) 25 gm 1X ONCE 09/10/19 21:45 09/10/19 21:46 DC 09/10/19 21:44 25 GM Labetalol HCl (Normodyne Iv Push) 10 mg 1X ONCE 09/10/19 21:30 09/10/19 21:31 DC 09/10/19 21:38 10 MG Sodium Chloride 1,000 ml @ 1,000 mls/hr Q1H 09/10/19 22:15 09/10/19 23:14 DC 09/10/19 22:40 1,000 MLS/HR Allergies Allergies Allergies Coded Allergies Type Severity Reaction Last Updated Verified No Known Drug Allergies 05/23/14 No Physical Exam Physical Exam Constitutional: Well developed, well nourished, no acute distress, non-toxic appearance. [] HENT: Normocephalic, bruising appreciated to right face, bilateral external ears normal, oropharynx moist, no oral exudates, nose normal. [] Eyes: PERRLA, EOMI, conjunctiva normal, no discharge. [] Cardiovascular:Heart rate regular rhythm, no murmur [] Lungs & Thorax: Bilateral breath sounds clear to auscultation [] Abdomen: Bowel sounds normal, soft, no tenderness, no masses, no pulsatile masses. [] Skin: Warm, dry, no erythema, no rash. [] Back: No tenderness, no CVA tenderness. [] Extremities: Tenderness to bilateral lower ext, + edema, pulses obtained with doppler unable to palpate [] Neurologic: Alert and oriented X 3, no focal deficits noted. [] Psychologic: Affect normal, judgement normal, mood normal. [] Current Patient Data Vital Signs Vital Signs Date Time Temp Pulse Resp B/P (MAP) Pulse Ox O2 Delivery O2 Flow Rate FiO2 09/10/19 22:37 79 94 09/10/19 21:38 216/123 09/10/19 20:21 96.1 15 Room Air 96.1 Lab Values Laboratory Tests Test 09/10/19 20:45 09/10/19 21:30 09/10/19 21:50 White Blood Count 6.9 x10^3/uL (4.0-11.0) Red Blood Count 3.48 x10^6/uL (3.50-5.40) L Hemoglobin 10.0 g/dL (12.0-15.5) L Hematocrit 31.4 % (36.0-47.0) L Mean Corpuscular Volume 90 fL (79-100) Mean Corpuscular Hemoglobin 29 pg (25-35) Mean Corpuscular Hemoglobin Concent 32 g/dL (31-37) Red Cell Distribution Width 17.5 % (11.5-14.5) H Platelet Count 176 x10^3/uL (140-400) Neutrophils (%) (Auto) 75 % (31-73) H Lymphocytes (%) (Auto) 16 % (24-48) L Monocytes (%) (Auto) 8 % (0-9) Eosinophils (%) (Auto) 0 % (0-3) Basophils (%) (Auto) 1 % (0-3) Neutrophils # (Auto) 5.2 x10^3/uL (1.8-7.7) Lymphocytes # (Auto) 1.1 x10^3/uL (1.0-4.8) Monocytes # (Auto) 0.5 x10^3/uL (0.0-1.1) Eosinophils # (Auto) 0.0 x10^3/uL (0.0-0.7) Basophils # (Auto) 0.0 x10^3/uL (0.0-0.2) Platelet Estimate Adequate (ADEQUATE) Hypochromasia Slight Poikilocytosis Slight Anisocytosis Slight Helmet Cells Occ Sodium Level 145 mmol/L (136-145) Potassium Level 5.6 mmol/L (3.5-5.1) H Chloride Level 108 mmol/L (98-107) H Carbon Dioxide Level 25 mmol/L (21-32) Anion Gap 12 (6-14) Blood Urea Nitrogen 51 mg/dL (7-20) H Creatinine 3.1 mg/dL (0.6-1.0) H Estimated GFR (Cockcroft-Gault) 18.6 BUN/Creatinine Ratio 16 (6-20) Glucose Level 87 mg/dL (70-99) Calcium Level 9.6 mg/dL (8.5-10.1) Total Bilirubin 0.4 mg/dL (0.2-1.0) Aspartate Amino Transferase (AST) 25 U/L (15-37) Alanine Aminotransferase (ALT) 11 U/L (14-59) L Alkaline Phosphatase 108 U/L (46-116) Troponin I Quantitative 0.107 ng/mL (0.000-0.055) Total Protein 7.1 g/dL (6.4-8.2) Albumin 2.9 g/dL (3.4-5.0) L Albumin/Globulin Ratio 0.7 (1.0-1.7) L Glucose (Fingerstick) 62 mg/dL (70-99) L Urine Collection Type U cath Urine Color Yellow Urine Clarity Clear Urine pH 5.5 Urine Specific [place] 1.020 Urine Protein >=300 mg/dL (NEG-TRACE) Urine Glucose (UA) Negative mg/dL (NEG) Urine Ketones (Stick) Negative mg/dL (NEG) Urine Blood Trace (NEG) Urine Nitrite Negative (NEG) Urine Bilirubin Negative (NEG) Urine Urobilinogen Dipstick 0.2 mg/dL (0.2 mg/dL) Urine Leukocyte Esterase Negative (NEG) Urine RBC 3-5 /HPF (0-2) Urine WBC Rare /HPF (0-4) Urine Squamous Epithelial Cells Occ /LPF Urine Amorphous Sediment Present /HPF Urine Bacteria 0 /HPF (0-FEW) Urine Mucus Slight /LPF Laboratory Tests 09/10/19 20:45 Laboratory Tests 09/10/19 20:45 EKG EKG [] Radiology/Procedures Radiology/Procedures [facility] [address] [place] [address] IMAGING REPORT Signed PATIENT: INA GRANT ACCOUNT: [id number] : 1960 LOCATION: ER AGE: 59 SEX: F EXAM STATUS: REG ER ORD. PHYSICIAN: DELMY VIRAMONTES MD REASON: fall x 2 in last 2 days PROCEDURE: CT HEAD AND CERVICAL SPINE WO Examination: CT head and cervical spine without contrast CT HEAD INDICATION: Fall COMPARISON: 06/05/2019 Exposure: One or more of the following individualized dose reduction techniques were utilized for this examination: 1. Automated exposure control 2. Adjustment of the mA and/or kV according to patient size 3. Use of iterative reconstruction technique TECHNIQUE: 5 mm contiguous axial images were obtained from the skull base to the vertex in both bone and soft tissue algorithm. FINDINGS: No abnormal attenuation within the brain parenchyma. No evidence of acute intracranial hemorrhage. No extra-axial fluid collections. No mass effect or midline shift. Ventricular size is appropriate. Basal cisterns are patent. No fractures identified.Holm-white differentiation is preserved.Globes and orbits are within normal limits. Paranasal sinuses and mastoid air cells are clear. Tiny calcifications identified in the bilateral parotid glands. IMPRESSION: No acute intracranial findings. CT CERVICAL SPINE History: Fall COMPARISON: None Available. Technique: 2.5 mm contiguous axial images were obtained from the skull base through the cervicothoracic junction in both bone and soft tissue algorithm. Additional sagittal and coronal reconstructions were also performed. FINDINGS: Vertebral body height and alignment are maintained. Cervical lordosis is preserved. The lateral masses of C1 are aligned upon C2. No fractures identified. The bony canal is patent throughout. Moderate intervertebral disc height loss identified in the cervical spine particularly at C4-C5, C5-C6, C6-C7 vertebral levels. The bilateral facets are well aligned. The paraspinous soft tissues are unremarkable. Visualized intracranial contents are unremarkable. Lung apices are clear. 1 cm hypodensity identified in the right lobe of thyroid gland. IMPRESSION: 1. No acute fracture of the cervical spine. Correlate clinically. 2. Moderate degenerative changes cervical spine. 3. 1 cm hypodensity identified in the right lobe of thyroid gland. Recommend nonemergent ultrasound thyroid. Electronically signed by: Carlito Katz MD (09/10/2019 9:31 PM) [facility] DICTATED and SIGNED BY: CARLITO KATZ MD DATE: 09/10/192130 [] Course & Med Decision Making Course & Med Decision Making Pertinent Labs and Imaging studies reviewed. (See chart for details) []59-year-old female presents to the emergency department via EMS after a fall. Patient apparently got home around 4 PM she was found by her sister around 6 PM after a fall. Patient was out in the elements at that time hypothermic upon initial EMS arrival. She is alert and oriented, she was hypoglycemic with a blood sugar of 60 when she got to the emergency department. Patient was provided with 1 amp of D50. Patient denies any chest pain, shortness of breath, nausea or vomiting/abdominal pain. She does have bilateral lower extremity pain. Patient's lower extremities are cold on examination from the knee down, she does have pulses however non-palpable there is obtained via Doppler. Patient has underlying history of hypertension, chronic kidney disease. Labs/Imaging reviewed No evidence of acute infection Lower ext with + doppler flow Hyperkalemai/CKD Elevated trop - will trend, patient without chest pain on exam, this is likely 2/2 patient's chronic kidney disease/hypertensive urgency Discussed findings with patient Michele Disclaimer Dragon Disclaimer This electronic medical record was generated, in whole or in part, using a voice recognition dictation system. Departure Departure Impression: Primary Impression: Fall Additional Impressions: Hypothermia Accelerated hypertension CKD (chronic kidney disease) Disposition: 09 ADMITTED INPATIENT Admitting Physician: HIMS Referrals: KESHAWN WINKLER (PCP) Problem Qualifiers Primary Impression: Fall Encounter type: initial encounter Qualified Codes: W19.XXXA - Unspecified fall, initial encounter Additional Impressions: Hypothermia Encounter type: initial encounter Qualified Codes: T68.XXXA - Hypothermia, initial encounter CKD (chronic kidney disease) Chronic kidney disease stage: unspecified stage Qualified Codes: N18.9 - Chronic kidney disease, unspecified DELMY VIRAMONTES MD Sep 10, 2019 22:33
[2019-09-10 22:41] LABS: ANISOCYTOSIS SLIGHT; HELMET CELLS OCC; HYPOCHROMIA SLIGHT; PLT ESTIMATE ADEQUATE (ADEQUATE); POIKILOCYTOSIS SLIGHT
--- NOTE | 2019-09-10 23:29 | RAD ---
Examination: Ultrasound bilateral lower extremity arterial duplex HISTORY: History of bilateral lower extremity faint pulses COMPARISON: None available TECHNIQUE: Grayscale, color 2-D, spectral waveforms of the bilateral lower extremity arterial system were performed FINDINGS: Following are the velocities in the right lower extremity Common femoral artery 126 cm/s, triphasic Deep femoral artery 76 cm/s, triphasic Proximal SFA 122 cm/second, triphasic Mid SFA 121 cm/s, triphasic Distal SFA 109 cm/s, triphasic Popliteal artery 81 cm/s, biphasic Proximal B[employer] 100 cm/s, biphasic Distal [employer] O[employer] 97 cm/s, biphasic Peroneal artery 34 cm/s, biphasic Anterior tibialis artery 99 cm/s, biphasic DPA 35 cm/s, biphasic. The following are the velocities in the left lower extremity: Common femoral artery 102 cm/s, biphasic DFA 57 cm/s, biphasic Proximal SFA 89 cm/s, biphasic Mid SFA 83 cm/s, biphasic Distal SFA 70 cm/s, popliteal artery 55 cm/s. Proximal B[employer] OPERATOR 109 cm/s. Distal B[employer] OPERATOR 48 cm/s. Peroneal artery 50 cm/s. Anterior tibialis artery 90 cm/s. Dorsalis pedis artery 35 cm/s. Biphasic waveforms identified in the left lower extremity arterial system. Mild soft tissue edema identified in the lower legs. IMPRESSION: No evidence of hemodynamically significant stenosis. Electronically signed by: Carlito Katz MD (09/10/2019 11:26 PM) [facility]
[2019-09-10] MEDS ORDERED: CALCIUM GLUCONATE 1,000 MG/10 ML VIAL. IVP ONE (23:45)
[2019-09-10] MEDS ORDERED: HEPARIN for IV BOLUS 10,000 UNIT/10 ML VIAL. IV PRN (23:45)
[2019-09-10] MEDS ORDERED: INSULIN REGULAR 100 UNIT/ML 3ML VIAL. IV ONE (23:45)
[2019-09-10] MEDS ORDERED: NITROGLYCERIN SUBLINGUAL 0.4 MG BOTTLE OF 25. SL PRN (23:45)
[2019-09-10] MEDS ORDERED: ONDANSETRON PF 4 MG/2 ML VIAL. IV PRN (23:45)
[2019-09-10] MEDS ORDERED: HEPARIN 25,000UTS/250ML PREMIX 250 ML IV PRN (23:45)
[2019-09-10] MEDS ORDERED: ACETAMINOPHEN 325 MG TABLET. PO PRN (23:45)
[2019-09-11] VITALS (7 sets, daily range): BP systolic 122–184; BP diastolic 70–92
[2019-09-11 03:24] LABS: BASO % 0 % (0-3); EOS % 0 % (0-3); HEMATOCRIT 30.1 % (36.0-47.0); HEMOGLOBIN 9.6 g/dL (12.0-15.5); LYMPH % 21 % (24-48); MEAN CORPUSCULAR HEMOGLOBIN 29 pg (25-35); MEAN CORPUSCULAR HGB CONC 32 g/dL (31-37); MEAN CORPUSCULAR VOLUME 91 fL (79-100); MONO # 0.4 x10^3/uL (0.0-1.1); MONO % 10 % (0-9); NEUT # 3.2 x10^3/uL (1.8-7.7); NEUT % 69 % (31-73); PLATELET COUNT 132 x10^3/uL (140-400); RED CELL DISTRIBUTION WIDTH 17.9 % (11.5-14.5); WHITE BLOOD COUNT 4.6 x10^3/uL (4.0-11.0)
[2019-09-11] MEDS: hydrALAZINE 20 MG/ML VIAL. IVP PRN (03:30)
--- NOTE | 2019-09-11 03:41 | NUR ---
The patient, INA GRANT, 59 y/o, F admitted by SHARA SHEEHAN MD, was given written information regarding hospital policies, unit procedures and contact persons. Valuables were checked and accounted for. Patient unaware how she fell at home. Patient sleepy but arousalable upon admission.
[2019-09-11 04:50] LABS: ALBUMIN 2.3 g/dL (3.4-5.0); ALBUMIN/GLOBULIN RATIO 0.5 (1.0-1.7); CALCIUM 9.2 mg/dL (8.5-10.1); CREATININE 3.2 mg/dL (0.6-1.0); GFR 17.9; POTASSIUM 4.6 mmol/L (3.5-5.1); TOTAL BILIRUBIN 0.4 mg/dL (0.2-1.0); TOTAL PROTEIN 6.5 g/dL (6.4-8.2)
--- NOTE | 2019-09-11 06:47 | EKG ---
[facility] [address] [place] [address] Test Date: 2019-09-10 Test Time: 21:36:57 Pat Name: INA GRANT Department: Room: 201 1 Gender: F Recreational Leader: : 1960 Requested By: SHARA SHEEHAN Order Number: [id number] Reading MD: Measurements Intervals [place] Rate: 76 P: 38 [place]: 178 QRS: -38 QRSD: 104 T: 138 QT: 462 QTc: 525 Interpretive Statements SINUS RHYTHM LEFT ATRIAL ABNORMALITY ABNORMAL LEFT AXIS DEVIATION LEFT ANTERIOR FASCICULAR BLOCK INCOMPLETE RIGHT BUNDLE BRANCH BLOCK LVH WITH REPOLARIZATION ABNORMALITY PROLONGED QT ABNORMAL ECG No previous ECG available for comparison
[2019-09-11] MEDS ORDERED: ANTI-COAG MONITOR BY PHARMACY. MC PRN (08:15)
--- NOTE | 2019-09-11 10:24 | PDOC2 ---
CURTIS DOE [employer] COMPLIANCE AGENT 09/11/19 1024: CARDIAC CONSULT DATE OF CONSULT Date of Consult DATE: 09/11/19 TIME: 10:18 REASON FOR CONSULT Reason for Consult: Elevated troponin REFERRING PHYSICIAN Referring Physician: Melvi SOURCE Source: Chart review, Patient HISTORY OF PRESENT ILLNESS HISTORY OF PRESENT ILLNESS This is a pleasant 59 yo female admitted for complains of fall. REports no chest pain but has been having some SOA in the last few days particularly with exertion. Also noted with leg edema with positive orthopnea. She was getting out of her car 4PM yesterday and felt weak in her legs and fall landed on her knees. After which her right knee became swollen. She was outdoor but she was wearing a coat. She could not get up one is because she is weak and second is the pain to her right kneee. She was on the ground for 4 hours at least till her sister discovered her. She has been compliant with her medications. No chest pain or palpitations. No dizziness or passing out. PAST MEDICAL HISTORY Past Medical History Cardiovascular: AFIB, HTN, Hyperlipidemia Pulmonary: COPD, Pulmonary embolus CENTRAL NERVOUS SYSTEM: Other GI: GERD Heme/Onc: Anemia NOS, Other Musculoskeletal: Osteoarthritis Rheumatologic: Rheumatoid arthritis, Other Infectious disease: No pertinent hx Renal/: Chronic renal insuff Endocrine: No pertinent hx, Other (THYROID NODULES) PAST SURGICAL HISTORY Past Surgical History: Other ([facility]) FAMILY HISTORY Family History: Hypertension SOCIAL HISTORY Smoke: Quit ALCOHOL: none Drugs: None Lives: with Family CURRENT MEDICATIONS CURRENT MEDICATIONS Current Medications Medications (Trade) Dose Ordered Sig/Blaine Route PRN Reason Start Time Stop Time Status Last Admin Dose Admin Labetalol HCl (Normodyne Iv Push) 10 mg 1X ONCE IVP 09/10/19 21:30 09/10/19 21:31 DC 09/10/19 21:38 Dextrose (Dextrose 50%-Water Syringe) 25 gm 1X ONCE IV 09/10/19 21:45 09/10/19 21:46 DC 09/10/19 21:44 Sodium Chloride 1,000 ml @ 1,000 mls/hr Q1H IV 09/10/19 22:15 09/10/19 23:14 DC 09/10/19 22:40 Heparin Sodium/ Dextrose 250 ml @ 0 mls/hr CONT PRN IV PER PROTOCOL 09/10/19 23:45 09/11/19 00:14 Calcium Gluconate (Calcium Gluconate) 1,000 mg 1X ONCE IVP 09/10/19 23:45 09/10/19 23:46 DC 09/10/19 23:59 Dextrose (Dextrose 50%-Water Syringe) 25 gm 1X ONCE IV 09/10/19 23:45 09/10/19 23:46 DC 09/10/19 23:57 Insulin Human Regular (HumuLIN R VIAL) 10 unit 1X ONCE IV 09/10/19 23:45 09/10/19 23:46 DC 09/11/19 00:16 Labetalol HCl (Normodyne Iv Push) 10 mg 1X ONCE IVP 09/10/19 23:45 09/10/19 23:46 DC 09/10/19 22:30 Hydralazine HCl (Apresoline Inj) 10 mg Q4HRS PRN IVP ELEVATED BP, SEE COMMENTS 09/11/19 00:00 09/11/19 03:30 ALLERGIES ALLERGIES: Coded Allergies: No Known Drug Allergies (Unverified , 05/23/14) ROS Review of System 14 point ROS evaluated with pertinent positives noted per HPI PHYSICAL EXAM General: Alert, Oriented X3, Cooperative, No acute distress HEENT: Atraumatic, Mucous membr. moist/pink Lungs: Other (basilar crackles) Heart: Regular rate (SR), Normal S1, Normal S2, Other (4/6 systolic murmur to LLS border; S4) Abdomen: Soft, No tenderness Extremities: No cyanosis, Other (2-3+ bilateral LE pitting edema) Skin: No breakdown, No significant lesion Neuro: Normal speech, Sensation intact Psych/Mental Status: Mental status NL, Mood NL MUSCULOSKELETAL: Osteoarthritic changes both hands, Other (right knee effusion) VITALS/I&O VITALS/I&O: Vital Signs Date Time Temp Pulse Resp B/P (MAP) Pulse Ox O2 Delivery O2 Flow Rate FiO2 09/11/19 08:00 Room Air 09/11/19 07:03 97.8 73 157/70 (99) 95 97.8 09/11/19 03:03 16 I & O 09/10/19 09/10/19 09/11/19 15:00 23:00 07:00 Intake Total 1000 ml Output Total 0 ml Balance 1000 ml LABS Lab: Laboratory Tests Test 09/10/19 20:45 09/10/19 21:30 09/10/19 21:50 09/11/19 02:50 White Blood Count 6.9 x10^3/uL (4.0-11.0) Red Blood Count 3.48 x10^6/uL (3.50-5.40) L Hemoglobin 10.0 g/dL (12.0-15.5) L Hematocrit 31.4 % (36.0-47.0) L Mean Corpuscular Volume 90 fL (79-100) Mean Corpuscular Hemoglobin 29 pg (25-35) Mean Corpuscular Hemoglobin Concent 32 g/dL (31-37) Red Cell Distribution Width 17.5 % (11.5-14.5) H Platelet Count 176 x10^3/uL (140-400) Neutrophils (%) (Auto) 75 % (31-73) H Lymphocytes (%) (Auto) 16 % (24-48) L Monocytes (%) (Auto) 8 % (0-9) Eosinophils (%) (Auto) 0 % (0-3) Basophils (%) (Auto) 1 % (0-3) Neutrophils # (Auto) 5.2 x10^3/uL (1.8-7.7) Lymphocytes # (Auto) 1.1 x10^3/uL (1.0-4.8) Monocytes # (Auto) 0.5 x10^3/uL (0.0-1.1) Eosinophils # (Auto) 0.0 x10^3/uL (0.0-0.7) Basophils # (Auto) 0.0 x10^3/uL (0.0-0.2) Platelet Estimate Adequate (ADEQUATE) Hypochromasia Slight Poikilocytosis Slight Anisocytosis Slight Helmet Cells Occ Sodium Level 145 mmol/L (136-145) Potassium Level 5.6 mmol/L (3.5-5.1) H Chloride Level 108 mmol/L (98-107) H Carbon Dioxide Level 25 mmol/L (21-32) Anion Gap 12 (6-14) Blood Urea Nitrogen 51 mg/dL (7-20) H Creatinine 3.1 mg/dL (0.6-1.0) H Estimated GFR (Cockcroft-Gault) 18.6 BUN/Creatinine Ratio 16 (6-20) Glucose Level 87 mg/dL (70-99) Calcium Level 9.6 mg/dL (8.5-10.1) Total Bilirubin 0.4 mg/dL (0.2-1.0) Aspartate Amino Transferase (AST) 25 U/L (15-37) Alanine Aminotransferase (ALT) 11 U/L (14-59) L Alkaline Phosphatase 108 U/L (46-116) Troponin I Quantitative 0.107 ng/mL (0.000-0.055) Total Protein 7.1 g/dL (6.4-8.2) Albumin 2.9 g/dL (3.4-5.0) L Albumin/Globulin Ratio 0.7 (1.0-1.7) L Glucose (Fingerstick) 62 mg/dL (70-99) L Urine Collection Type U cath Urine Color Yellow Urine Clarity Clear Urine pH 5.5 Urine Specific [place] 1.020 Urine Protein >=300 mg/dL (NEG-TRACE) Urine Glucose (UA) Negative mg/dL (NEG) Urine Ketones (Stick) Negative mg/dL (NEG) Urine Blood Trace (NEG) Urine Nitrite Negative (NEG) Urine Bilirubin Negative (NEG) Urine Urobilinogen Dipstick 0.2 mg/dL (0.2 mg/dL) Urine Leukocyte Esterase Negative (NEG) Urine RBC 3-5 /HPF (0-2) Urine WBC Rare /HPF (0-4) Urine Squamous Epithelial Cells Occ /LPF Urine Amorphous Sediment Present /HPF Urine Bacteria 0 /HPF (0-FEW) Urine Mucus Slight /LPF CF-Nly-C-Type Natriuretic Peptide > 32891 pg/mL (0-124) H Test 09/11/19 02:55 09/11/19 06:15 White Blood Count 4.6 x10^3/uL (4.0-11.0) Red Blood Count 3.30 x10^6/uL (3.50-5.40) L Hemoglobin 9.6 g/dL (12.0-15.5) L Hematocrit 30.1 % (36.0-47.0) L Mean Corpuscular Volume 91 fL (79-100) Mean Corpuscular Hemoglobin 29 pg (25-35) Mean Corpuscular Hemoglobin Concent 32 g/dL (31-37) Red Cell Distribution Width 17.9 % (11.5-14.5) H Platelet Count 132 x10^3/uL (140-400) L Neutrophils (%) (Auto) 69 % (31-73) Lymphocytes (%) (Auto) 21 % (24-48) L Monocytes (%) (Auto) 10 % (0-9) H Eosinophils (%) (Auto) 0 % (0-3) Basophils (%) (Auto) 0 % (0-3) Neutrophils # (Auto) 3.2 x10^3/uL (1.8-7.7) Lymphocytes # (Auto) 1.0 x10^3/uL (1.0-4.8) Monocytes # (Auto) 0.4 x10^3/uL (0.0-1.1) Eosinophils # (Auto) 0.0 x10^3/uL (0.0-0.7) Basophils # (Auto) 0.0 x10^3/uL (0.0-0.2) Sodium Level 146 mmol/L (136-145) H Potassium Level 4.6 mmol/L (3.5-5.1) # Chloride Level 111 mmol/L (98-107) H Carbon Dioxide Level 29 mmol/L (21-32) Anion Gap 6 (6-14) Blood Urea Nitrogen 52 mg/dL (7-20) H Creatinine 3.2 mg/dL (0.6-1.0) H Estimated GFR (Cockcroft-Gault) 17.9 BUN/Creatinine Ratio 16 (6-20) Glucose Level 59 mg/dL (70-99) L Calcium Level 9.2 mg/dL (8.5-10.1) Total Bilirubin 0.4 mg/dL (0.2-1.0) Aspartate Amino Transferase (AST) 21 U/L (15-37) Alanine Aminotransferase (ALT) 8 U/L (14-59) L Alkaline Phosphatase 82 U/L (46-116) Troponin I Quantitative 0.184 ng/mL (0.000-0.055) 0.168 ng/mL (0.000-0.055) Total Protein 6.5 g/dL (6.4-8.2) Albumin 2.3 g/dL (3.4-5.0) L Albumin/Globulin Ratio 0.5 (1.0-1.7) L Laboratory Tests 09/10/19 20:45 09/11/19 02:55 Laboratory Tests 09/10/19 20:45 09/11/19 02:55 ECHOCARDIOGRAM ECHOCARDIOGRAM <Conclusion> The left ventricular systolic function is normal and the ejection fraction is within normal range. The Ejection Fraction is 65-70%. There is normal LV segmental wall motion. There is moderate concentric left ventricular hypertrophy. Aortic valve is not well visualized. No significant stenosis or regurgitation noted on doppler imaging. Cannot rule out flail mitral valve chord versus artifact. No significant regurgitation noted, therefore, it is likely an artifact, correlate with clinical exam. Doppler and Color Flow revealed trace regurgitation. RVSP of 51 mm Hg. DATE: 06/06/19 1128 ASSESSMENT/PLAN ASSESSMENT/PLAN 1. Traumatic mechanical fall: right knee effusion, could not rule ligamental injury nor fracture. No presyncopal event. 2. Acute on chronic diastolic CHF 3. Elevated troponin mild elevation demand mediated. EKG SR with LV strain pattern no acute changes. 4. Mild valvular disease: mild and TR 5. HTN: Labile BP 6. RIYA on CKD with hyperkalemia 7. Hypoglycemia: no hx of DM 8. Weakness: potentially this could related to hypoglycemia. She did skipped lunch and this occurred around 4 PM yesterday, fell and landed on her knees and could not get up after. 9. PAFIB: maintaining SR 10. Hx of PE/SLE and membranous nephropathy Recommendations 1. Lasix, CXR, check CK 2. Continue labetolol. Hydralazine IV PRN. Check orthostatic readings. Monitor BP trend. No ACEi/ARB. consult nephrology. 3. Consult Dr. Luciano, hemarthrosis could not be ruled in regards to right knee. imaging per them 4. Hold xarelto and stop heparin for potential knee aspiration tomorrow. BRENDA RAY MD 09/11/19 1841: CARDIAC CONSULT ASSESSMENT/PLAN ASSESSMENT/PLAN Patient seen and examined. Agree with SHOEMAKING CUTTER's assessment and plan. Continue diuresis for ac on chr diastolic HF PAF in SR Hold xarelto for possible knee hemarthrosis aspiration Slight trop elevation probably demand ischemia Recent 2D echo showed normal LV systolic function We will consider ischemic eval as outpatient Thank you for your consultation CURTIS DOE APRN Sep 11, 2019 10:24 BRENDA RAY MD Sep 11, 2019 18:41
--- NOTE | 2019-09-11 10:42 | PDOC2 ---
CONSULT Date of Consult Date of Consult DATE: 09/11/19 TIME: 10:31 Reason for Consult Reason for Consult: RENAL FAILURE Referring Physician Referring Physician: AGUILA Identification/Chief Complaint Chief Complaint WEAKNESS AND SOB Source Source: Chart review, Patient History of Present Illness Reason for Visit: THIS IS A 59 YR OLD WITH SOB WEAKNESS AND FALL. NOTED TO BE HYPOGLYCEMIC AND HYPOTHERMIC ON PRESENTATION BUT ALERT AND ORIENTED. SHE HAS LE EDEMA WELL. HX OF CKD STAGE 4 WITH CR OF ABOUT 3.0. CR NOW IS 3.2 AND SHE IS SOMEWHAT HYPERTENSIVE. SEEING CARDIOLOGY FOR INCREASED TROPONIN. HX OR PRESERVED EF AND NO CAD BASED ON HEART CATH SEVERAL MONTHS AGO. SHE HAS BX PROVEN MEMBRANOUS NEPHROPATHY WITH PROTEINURIA. NO OTHER HX NOTED ACUTELY. UA NEG EXCEPT PROTEINURIA. BELOW NOTE REVIEWED FROM ER PHYSICIAN. 59-year-old female presents to the emergency department via EMS after a fall. Patient apparently got home around 4 PM she was found by her sister around 6 PM after a fall. Patient was out in the elements at that time hypothermic upon initial EMS arrival. She is alert and oriented, she was hypoglycemic with a blood sugar of 60 when she got to the emergency department. Patient was provided with 1 amp of D50. Patient denies any chest pain, shortness of breath, nausea or vomiting/abdominal pain. She does have bilateral lower extremity pain. Patient's lower extremities are cold on examination from the knee down, she does have pulses however non-palpable there is obtained via Doppler. Patient has underlying history of hypertension, chronic kidney disease. Past Medical History Cardiovascular: AFIB, HTN, Hyperlipidemia Pulmonary: COPD, Pulmonary embolus CENTRAL NERVOUS SYSTEM: Other GI: GERD Heme/Onc: Anemia NOS, Other Rheumatologic: Rheumatoid arthritis, Other Infectious disease: No pertinent hx Renal/: Chronic renal insuff Endocrine: No pertinent hx, Other Past Surgical History Past Surgical History: Other, No pertinent history Family History Family History: High Cholestrol, Hypertension Social History ALCOHOL: none Drugs: None Lives: Alone Current Problem List Problem List Problems Medical Problems: (1) Accelerated hypertension Status: Acute (2) CKD (chronic kidney disease) Status: Acute (3) Fall Status: Acute (4) Hypothermia Status: Acute Current Medications Current Medications Current Medications Labetalol HCl (Normodyne Iv Push) 10 mg 1X ONCE IVP Last administered on 09/10/19at 21:38; Start 09/10/19 at 21:30; Stop 09/10/19 at 21:31; Status DC Dextrose (Dextrose 50%-Water Syringe) 25 gm STK-MED ONCE IV ; Start 09/10/19 at 21:37; Stop 09/10/19 at 21:37; Status DC Dextrose (Dextrose 50%-Water Syringe) 25 gm 1X ONCE IV Last administered on 09/10/19at 21:44; Start 09/10/19 at 21:45; Stop 09/10/19 at 21:46; Status DC Sodium Chloride 1,000 ml @ 1,000 mls/hr Q1H IV Last administered on 09/10/19at 22:40; Start 09/10/19 at 22:15; Stop 09/10/19 at 23:14; Status DC Labetalol HCl (Normodyne Iv Push) 10 mg 1X ONCE IVP ; Start 09/10/19 at 23:45; Stop 09/10/19 at 23:46; Status UNV Heparin Sodium/ Dextrose 250 ml @ 0 mls/hr CONT PRN IV PER PROTOCOL Last administered on 09/11/19at 00:14; Start 09/10/19 at 23:45 Heparin Sodium (Porcine) (Heparin Sodium) 1,600 unit PRN Q6HRS PRN IV FOR UFH LEVEL LESS THAN 0.2; Start 09/10/19 at 23:45 Ondansetron HCl (Zofran) 4 mg PRN Q8HRS PRN IV NAUSEA/VOMITING; Start 09/10/19 at 23:45; Stop 09/11/19 at 23:44 Acetaminophen (Tylenol) 650 mg PRN Q4HRS PRN PO FEVER; Start 09/10/19 at 23:45; Stop 09/11/19 at 23:44 Nitroglycerin (Nitrostat) 0.4 mg PRN Q5MIN PRN SL CHEST PAIN; Start 09/10/19 at 23:45; Stop 09/11/19 at 23:44 Calcium Gluconate (Calcium Gluconate) 1,000 mg 1X ONCE IVP Last administered on 09/10/19at 23:59; Start 09/10/19 at 23:45; Stop 09/10/19 at 23:46; Status DC Dextrose (Dextrose 50%-Water Syringe) 25 gm 1X ONCE IV Last administered on 09/10/19at 23:57; Start 09/10/19 at 23:45; Stop 09/10/19 at 23:46; Status DC Insulin Human Regular (HumuLIN R VIAL) 10 unit 1X ONCE IV Last administered on 09/11/19at 00:16; Start 09/10/19 at 23:45; Stop 09/10/19 at 23:46; Status DC Labetalol HCl (Normodyne Iv Push) 10 mg 1X ONCE IVP Last administered on 09/10/19at 22:30; Start 09/10/19 at 23:45; Stop 09/10/19 at 23:46; Status DC Hydralazine HCl (Apresoline Inj) 10 mg Q4HRS PRN IVP ELEVATED BP, SEE COMMENTS Last administered on 09/11/19at 03:30; Start 09/11/19 at 00:00 Info (Anti-Coagulation Monitoring By Pharmacy) 1 each PRN DAILY PRN MC SEE COMMENTS; Start 09/11/19 at 08:15 Active Scripts Active [Darbepoetin Emmanuel In Polysorbat] 60 MCG/0.3 ML Disp.syrin 60 Mcg SQ WEEKLYHS 30 Days Reported Protonix (Pantoprazole Sodium) 40 Mg Tablet.dr 40 Mg PO DAILYAC Multivitamins (Multivitamin) 1 Each Tablet 1 Tab PO DAILY Symbicort 160-4.5 Mcg Inhaler (Budesonide/Formoterol Fumarate) 10.2 Gm Hfa.aer.ad 1 Puff IH BID Spiriva (Tiotropium [place]) 18 Mcg Cap.w.dev 2 Inh IH DAILY Xarelto (Rivaroxaban) 10 Mg Tablet 10 Mg PO DAILY Phoslo (Calcium Acetate) 667 Mg Capsule 1 Cap PO BIDWMEALS K-Tab ER (Potassium Chloride) 20 Meq Tablet.er 20 Meq PO DAILY Allergies Allergies: Coded Allergies: No Known Drug Allergies (Unverified , 05/23/14) ROS General: YES: Fatigue, Malaise, Appetite PSYCHOLOGICAL ROS: YES: Anxiety, Depression Eyes: Yes Decreased vision HEENT: YES: Heacaches Respiratory: YES: Cough, Orthopnea, Shortness of breath Cardiovascular: yes Orthopnea, yes Edema Gastrointestinal: Yes Constipation Genitourinary: YES Other (NOCTURIA) Musculoskeletal: Yes Muscular Weakness Neurological: Yes Weakness Skin: Yes Dry Skin Physical Exam General: Alert, Oriented X3, Cooperative, No acute distress HEENT: Atraumatic, PERRLA Lungs: Other (BASILAR RALES) Heart: Regular rate Abdomen: Normal bowel sounds Extremities: No cyanosis, Other (2+ EDEMA) Neuro: Normal speech Psych/Mental Status: Other (FLAT AFFECT) MUSCULOSKELETAL: No deformity Vitals VITALS Vital Signs Date Time Temp Pulse Resp B/P (MAP) Pulse Ox O2 Delivery O2 Flow Rate FiO2 09/11/19 08:00 Room Air 09/11/19 07:03 97.8 73 157/70 (99) 95 97.8 09/11/19 03:03 16 Labs Labs Laboratory Tests Test 09/10/19 20:45 09/10/19 21:30 09/10/19 21:50 09/11/19 02:50 White Blood Count 6.9 x10^3/uL (4.0-11.0) Red Blood Count 3.48 x10^6/uL (3.50-5.40) Hemoglobin 10.0 g/dL (12.0-15.5) Hematocrit 31.4 % (36.0-47.0) Mean Corpuscular Volume 90 fL (79-100) Mean Corpuscular Hemoglobin 29 pg (25-35) Mean Corpuscular Hemoglobin Concent 32 g/dL (31-37) Red Cell Distribution Width 17.5 % (11.5-14.5) Platelet Count 176 x10^3/uL (140-400) Neutrophils (%) (Auto) 75 % (31-73) Lymphocytes (%) (Auto) 16 % (24-48) Monocytes (%) (Auto) 8 % (0-9) Eosinophils (%) (Auto) 0 % (0-3) Basophils (%) (Auto) 1 % (0-3) Neutrophils # (Auto) 5.2 x10^3/uL (1.8-7.7) Lymphocytes # (Auto) 1.1 x10^3/uL (1.0-4.8) Monocytes # (Auto) 0.5 x10^3/uL (0.0-1.1) Eosinophils # (Auto) 0.0 x10^3/uL (0.0-0.7) Basophils # (Auto) 0.0 x10^3/uL (0.0-0.2) Platelet Estimate Adequate (ADEQUATE) Hypochromasia Slight Poikilocytosis Slight Anisocytosis Slight Helmet Cells Occ Sodium Level 145 mmol/L (136-145) Potassium Level 5.6 mmol/L (3.5-5.1) Chloride Level 108 mmol/L (98-107) Carbon Dioxide Level 25 mmol/L (21-32) Anion Gap 12 (6-14) Blood Urea Nitrogen 51 mg/dL (7-20) Creatinine 3.1 mg/dL (0.6-1.0) Estimated GFR (Cockcroft-Gault) 18.6 BUN/Creatinine Ratio 16 (6-20) Glucose Level 87 mg/dL (70-99) Calcium Level 9.6 mg/dL (8.5-10.1) Total Bilirubin 0.4 mg/dL (0.2-1.0) Aspartate Amino Transf (AST/SGOT) 25 U/L (15-37) Alanine Aminotransferase (ALT/SGPT) 11 U/L (14-59) Alkaline Phosphatase 108 U/L (46-116) Troponin I Quantitative 0.107 ng/mL (0.000-0.055) Total Protein 7.1 g/dL (6.4-8.2) Albumin 2.9 g/dL (3.4-5.0) Albumin/Globulin Ratio 0.7 (1.0-1.7) Glucose (Fingerstick) 62 mg/dL (70-99) Urine Collection Type U cath Urine Color Yellow Urine Clarity Clear Urine pH 5.5 Urine Specific Grethel 1.020 Urine Protein >=300 mg/dL (NEG-TRACE) Urine Glucose (UA) Negative mg/dL (NEG) Urine Ketones (Stick) Negative mg/dL (NEG) Urine Blood Trace (NEG) Urine Nitrite Negative (NEG) Urine Bilirubin Negative (NEG) Urine Urobilinogen Dipstick 0.2 mg/dL (0.2 mg/dL) Urine Leukocyte Esterase Negative (NEG) Urine RBC 3-5 /HPF (0-2) Urine WBC Rare /HPF (0-4) Urine Squamous Epithelial Cells Occ /LPF Urine Amorphous Sediment Present /HPF Urine Bacteria 0 /HPF (0-FEW) Urine Mucus Slight /LPF HU-Bmk-M-Type Natriuretic Peptide > 55883 pg/mL (0-124) Test 09/11/19 02:55 09/11/19 06:15 White Blood Count 4.6 x10^3/uL (4.0-11.0) Red Blood Count 3.30 x10^6/uL (3.50-5.40) Hemoglobin 9.6 g/dL (12.0-15.5) Hematocrit 30.1 % (36.0-47.0) Mean Corpuscular Volume 91 fL (79-100) Mean Corpuscular Hemoglobin 29 pg (25-35) Mean Corpuscular Hemoglobin Concent 32 g/dL (31-37) Red Cell Distribution Width 17.9 % (11.5-14.5) Platelet Count 132 x10^3/uL (140-400) Neutrophils (%) (Auto) 69 % (31-73) Lymphocytes (%) (Auto) 21 % (24-48) Monocytes (%) (Auto) 10 % (0-9) Eosinophils (%) (Auto) 0 % (0-3) Basophils (%) (Auto) 0 % (0-3) Neutrophils # (Auto) 3.2 x10^3/uL (1.8-7.7) Lymphocytes # (Auto) 1.0 x10^3/uL (1.0-4.8) Monocytes # (Auto) 0.4 x10^3/uL (0.0-1.1) Eosinophils # (Auto) 0.0 x10^3/uL (0.0-0.7) Basophils # (Auto) 0.0 x10^3/uL (0.0-0.2) Sodium Level 146 mmol/L (136-145) Potassium Level 4.6 mmol/L (3.5-5.1) Chloride Level 111 mmol/L (98-107) Carbon Dioxide Level 29 mmol/L (21-32) Anion Gap 6 (6-14) Blood Urea Nitrogen 52 mg/dL (7-20) Creatinine 3.2 mg/dL (0.6-1.0) Estimated GFR (Cockcroft-Gault) 17.9 BUN/Creatinine Ratio 16 (6-20) Glucose Level 59 mg/dL (70-99) Calcium Level 9.2 mg/dL (8.5-10.1) Total Bilirubin 0.4 mg/dL (0.2-1.0) Aspartate Amino Transf (AST/SGOT) 21 U/L (15-37) Alanine Aminotransferase (ALT/SGPT) 8 U/L (14-59) Alkaline Phosphatase 82 U/L (46-116) Troponin I Quantitative 0.184 ng/mL (0.000-0.055) 0.168 ng/mL (0.000-0.055) Total Protein 6.5 g/dL (6.4-8.2) Albumin 2.3 g/dL (3.4-5.0) Albumin/Globulin Ratio 0.5 (1.0-1.7) Laboratory Tests Test 09/10/19 20:45 09/10/19 21:30 09/10/19 21:50 09/11/19 02:50 White Blood Count 6.9 x10^3/uL (4.0-11.0) Red Blood Count 3.48 x10^6/uL (3.50-5.40) Hemoglobin 10.0 g/dL (12.0-15.5) Hematocrit 31.4 % (36.0-47.0) Mean Corpuscular Volume 90 fL (79-100) Mean Corpuscular Hemoglobin 29 pg (25-35) Mean Corpuscular Hemoglobin Concent 32 g/dL (31-37) Red Cell Distribution Width 17.5 % (11.5-14.5) Platelet Count 176 x10^3/uL (140-400) Neutrophils (%) (Auto) 75 % (31-73) Lymphocytes (%) (Auto) 16 % (24-48) Monocytes (%) (Auto) 8 % (0-9) Eosinophils (%) (Auto) 0 % (0-3) Basophils (%) (Auto) 1 % (0-3) Neutrophils # (Auto) 5.2 x10^3/uL (1.8-7.7) Lymphocytes # (Auto) 1.1 x10^3/uL (1.0-4.8) Monocytes # (Auto) 0.5 x10^3/uL (0.0-1.1) Eosinophils # (Auto) 0.0 x10^3/uL (0.0-0.7) Basophils # (Auto) 0.0 x10^3/uL (0.0-0.2) Platelet Estimate Adequate (ADEQUATE) Hypochromasia Slight Poikilocytosis Slight Anisocytosis Slight Helmet Cells Occ Sodium Level 145 mmol/L (136-145) Potassium Level 5.6 mmol/L (3.5-5.1) Chloride Level 108 mmol/L (98-107) Carbon Dioxide Level 25 mmol/L (21-32) Anion Gap 12 (6-14) Blood Urea Nitrogen 51 mg/dL (7-20) Creatinine 3.1 mg/dL (0.6-1.0) Estimated GFR (Cockcroft-Gault) 18.6 BUN/Creatinine Ratio 16 (6-20) Glucose Level 87 mg/dL (70-99) Calcium Level 9.6 mg/dL (8.5-10.1) Total Bilirubin 0.4 mg/dL (0.2-1.0) Aspartate Amino Transf (AST/SGOT) 25 U/L (15-37) Alanine Aminotransferase (ALT/SGPT) 11 U/L (14-59) Alkaline Phosphatase 108 U/L (46-116) Troponin I Quantitative 0.107 ng/mL (0.000-0.055) Total Protein 7.1 g/dL (6.4-8.2) Albumin 2.9 g/dL (3.4-5.0) Albumin/Globulin Ratio 0.7 (1.0-1.7) Glucose (Fingerstick) 62 mg/dL (70-99) Urine Collection Type U cath Urine Color Yellow Urine Clarity Clear Urine pH 5.5 Urine Specific Grethel 1.020 Urine Protein >=300 mg/dL (NEG-TRACE) Urine Glucose (UA) Negative mg/dL (NEG) Urine Ketones (Stick) Negative mg/dL (NEG) Urine Blood Trace (NEG) Urine Nitrite Negative (NEG) Urine Bilirubin Negative (NEG) Urine Urobilinogen Dipstick 0.2 mg/dL (0.2 mg/dL) Urine Leukocyte Esterase Negative (NEG) Urine RBC 3-5 /HPF (0-2) Urine WBC Rare /HPF (0-4) Urine Squamous Epithelial Cells Occ /LPF Urine Amorphous Sediment Present /HPF Urine Bacteria 0 /HPF (0-FEW) Urine Mucus Slight /LPF PF-Vmo-L-Type Natriuretic Peptide > 93126 pg/mL (0-124) Test 09/11/19 02:55 09/11/19 06:15 White Blood Count 4.6 x10^3/uL (4.0-11.0) Red Blood Count 3.30 x10^6/uL (3.50-5.40) Hemoglobin 9.6 g/dL (12.0-15.5) Hematocrit 30.1 % (36.0-47.0) Mean Corpuscular Volume 91 fL (79-100) Mean Corpuscular Hemoglobin 29 pg (25-35) Mean Corpuscular Hemoglobin Concent 32 g/dL (31-37) Red Cell Distribution Width 17.9 % (11.5-14.5) Platelet Count 132 x10^3/uL (140-400) Neutrophils (%) (Auto) 69 % (31-73) Lymphocytes (%) (Auto) 21 % (24-48) Monocytes (%) (Auto) 10 % (0-9) Eosinophils (%) (Auto) 0 % (0-3) Basophils (%) (Auto) 0 % (0-3) Neutrophils # (Auto) 3.2 x10^3/uL (1.8-7.7) Lymphocytes # (Auto) 1.0 x10^3/uL (1.0-4.8) Monocytes # (Auto) 0.4 x10^3/uL (0.0-1.1) Eosinophils # (Auto) 0.0 x10^3/uL (0.0-0.7) Basophils # (Auto) 0.0 x10^3/uL (0.0-0.2) Sodium Level 146 mmol/L (136-145) Potassium Level 4.6 mmol/L (3.5-5.1) Chloride Level 111 mmol/L (98-107) Carbon Dioxide Level 29 mmol/L (21-32) Anion Gap 6 (6-14) Blood Urea Nitrogen 52 mg/dL (7-20) Creatinine 3.2 mg/dL (0.6-1.0) Estimated GFR (Cockcroft-Gault) 17.9 BUN/Creatinine Ratio 16 (6-20) Glucose Level 59 mg/dL (70-99) Calcium Level 9.2 mg/dL (8.5-10.1) Total Bilirubin 0.4 mg/dL (0.2-1.0) Aspartate Amino Transf (AST/SGOT) 21 U/L (15-37) Alanine Aminotransferase (ALT/SGPT) 8 U/L (14-59) Alkaline Phosphatase 82 U/L (46-116) Troponin I Quantitative 0.184 ng/mL (0.000-0.055) 0.168 ng/mL (0.000-0.055) Total Protein 6.5 g/dL (6.4-8.2) Albumin 2.3 g/dL (3.4-5.0) Albumin/Globulin Ratio 0.5 (1.0-1.7) Assessment/Plan Assessment/Plan IMP CKD STAGE 4 LE EDEMA CHF-PROB [id number] INCREASED PAP AND MILD AV STENOSIS HX OF SLE-SEES RHEUMATOLOGY-ON SAUMYA PER HEME OP MEMBRANOUS NEPHROPATHY-BX PROVEN WITH PROTEINURIA ANEMIA-CHRONIC DZ AND DUE TO CKD DECONDITIONING FALL PLAN DIURESE ARANESP MAY NEED DIALYSIS CHECK PO4 CHECK IRON D/W CARDIOLOGY JORGE ALBERTO HI MD Sep 11, 2019 10:41
[2019-09-11] MEDS ORDERED: MINERAL OIL/PETROLATUM TOPICAL CREAM 113GM JAR. TP PRN (11:00)
[2019-09-11] MEDS ORDERED: FUROSEMIDE 100 MG/10 ML VIAL. IVP ONE (11:00)
[2019-09-11] MEDS: DICLOFENAC SODIUM 1% TOPICAL GEL 100GM TUBE. TP SCH ×2 (11:18→20:50)
[2019-09-11] MEDS: MINERAL OIL/PETROLATUM TOPICAL CREAM 113GM JAR. TP SCH (11:18)
[2019-09-11] MEDS ORDERED: FUROSEMIDE 40 MG/4 ML VIAL. IVP ONE (11:30)
[2019-09-11] MEDS ORDERED: methylPREDNISolone ACETATE 40 MG/ML VIAL. IM ONE (11:30)
[2019-09-11] MEDS ORDERED: BUPIVACAINE MPF 0.25% 10 ML VIAL. IJ ONE (11:30)
--- NOTE | 2019-09-11 11:32 | EKG ---
[facility] [address] [place] [address] Test Date: 2019-09-11 Test Time: 11:13:52 Pat Name: INA GRANT Department: Room: 201 1 Gender: F Interactive Producer: : [id number] Requested By: CURTIS DOE Order Number: [id number] Reading MD: Measurements Intervals [place] Rate: 72 P: 47 SC: 174 QRS: -23 QRSD: 88 T: 173 QT: 448 QTc: 492 Interpretive Statements SINUS RHYTHM LEFTWARD AXIS INCOMPLETE RIGHT BUNDLE BRANCH BLOCK CONSIDER LEFT VENTRICULAR HYPERTROPHY T ABNORMALITY IN ANTEROLATERAL LEADS INFEROLATERAL LEADS PROLONGED QT ABNORMAL ECG RI6.02 Compared to ECG 06/28/2019 11:38:22 Left-axis deviation now present Incomplete right bundle-branch block now present T-wave abnormality now present Prolonged QT interval now present
--- NOTE | 2019-09-11 11:33 | RAD ---
EXAM: Chest, single view. HISTORY: Congestive heart failure. COMPARISON: 07/08/2019 FINDINGS: A frontal view of the chest is obtained. There is stable diffuse increased interstitial opacity. There is stable enlargement of the cardiac silhouette. There is no consolidation, pleural effusion or pneumothorax. IMPRESSION: 1. Stable diffuse increased interstitial opacity due to interstitial infiltrate or chronic interstitial changes. 2. Stable cardiomegaly. Electronically signed by: Giovanna Baker MD (09/11/2019 11:30 AM) [facility] [place]
--- NOTE | 2019-09-11 14:18 | PDOC1 ---
History and Physical Date of Admission: Date of Admission DATE: 09/11/19 TIME: 14:18 Chief Complaint: Problems: (1) Chest pain (2) Hypertensive urgency (3) Pneumonia (4) Shortness of breath (5) Hyperkalemia (6) Acute exacerbation of CHF (congestive heart failure) (7) Hypothermia (8) Fall (9) Accelerated hypertension (10) CKD (chronic kidney disease) (11) Protein in urine (12) Hypertension Chief Complain: Fall History of Present Illness: HPI: This is a 59-year-old female who fell out in the cold yesterday She has some associated weakness EMS was called and she was found down They noticed that she was hypothermic and hypoglycemic although somewhat alert and oriented She was given warmed blankets and some glucose and brought to the ER Rates her pain at 7 out of 10 Moving makes it worse sitting still makes it better I discussed the case with ER physician were going to admit the patient for glycemic management and IV fluids Past Medical/Surgical History: PMH/PSH: Past Medical History: High Cholesterol, Hypertension, Other Additional Past Medical Histor: LUPUS Past Surgical History: No Surgical History Alcohol Use: None Drug Use: None Allergies: Allergies: Coded Allergies: No Known Drug Allergies (Unverified , 05/23/14) Family History: Family History: Hypertension Social History: Social Hisoty: She does not drink smoke or take drugs Current Medications: Current Medications Current Medications Labetalol HCl (Normodyne Iv Push) 10 mg 1X ONCE IVP Last administered on 09/10/19at 21:38; Start 09/10/19 at 21:30; Stop 09/10/19 at 21:31; Status DC Dextrose (Dextrose 50%-Water Syringe) 25 gm STK-MED ONCE IV ; Start 09/10/19 at 21:37; Stop 09/10/19 at 21:37; Status DC Dextrose (Dextrose 50%-Water Syringe) 25 gm 1X ONCE IV Last administered on 09/10/19at 21:44; Start 09/10/19 at 21:45; Stop 09/10/19 at 21:46; Status DC Sodium Chloride 1,000 ml @ 1,000 mls/hr Q1H IV Last administered on 09/10/19at 22:40; Start 09/10/19 at 22:15; Stop 09/10/19 at 23:14; Status DC Labetalol HCl (Normodyne Iv Push) 10 mg 1X ONCE IVP ; Start 09/10/19 at 23:45; Stop 09/10/19 at 23:46; Status UNV Heparin Sodium/ Dextrose 250 ml @ 0 mls/hr CONT PRN IV PER PROTOCOL Last administered on 09/11/19at 00:14; Start 09/10/19 at 23:45; Stop 09/11/19 at 10:46; Status DC Heparin Sodium (Porcine) (Heparin Sodium) 1,600 unit PRN Q6HRS PRN IV FOR UFH LEVEL LESS THAN 0.2; Start 09/10/19 at 23:45 Ondansetron HCl (Zofran) 4 mg PRN Q8HRS PRN IV NAUSEA/VOMITING; Start 09/10/19 at 23:45; Stop 09/11/19 at 23:44 Acetaminophen (Tylenol) 650 mg PRN Q4HRS PRN PO FEVER; Start 09/10/19 at 23:45; Stop 09/11/19 at 23:44 Nitroglycerin (Nitrostat) 0.4 mg PRN Q5MIN PRN SL CHEST PAIN; Start 09/10/19 at 23:45; Stop 09/11/19 at 23:44 Calcium Gluconate (Calcium Gluconate) 1,000 mg 1X ONCE IVP Last administered on 09/10/19at 23:59; Start 09/10/19 at 23:45; Stop 09/10/19 at 23:46; Status DC Dextrose (Dextrose 50%-Water Syringe) 25 gm 1X ONCE IV Last administered on 09/10/19at 23:57; Start 09/10/19 at 23:45; Stop 09/10/19 at 23:46; Status DC Insulin Human Regular (HumuLIN R VIAL) 10 unit 1X ONCE IV Last administered on 09/11/19at 00:16; Start 09/10/19 at 23:45; Stop 09/10/19 at 23:46; Status DC Labetalol HCl (Normodyne Iv Push) 10 mg 1X ONCE IVP Last administered on 09/10/19at 22:30; Start 09/10/19 at 23:45; Stop 09/10/19 at 23:46; Status DC Hydralazine HCl (Apresoline Inj) 10 mg Q4HRS PRN IVP ELEVATED BP, SEE COMMENTS Last administered on 09/11/19at 03:30; Start 09/11/19 at 00:00 Info (Anti-Coagulation Monitoring By Pharmacy) 1 each PRN DAILY PRN MC SEE COMMENTS; Start 09/11/19 at 08:15 Furosemide (Lasix) 40 mg 1X ONCE IVP ; Start 09/11/19 at 11:30; Stop 09/11/19 at 11:31; Status Cancel Darbepoetin Emmanuel (ARANESP for DIALYSIS PTS) 60 mcg WEEKLYHS SQ ; Start 09/11/19 at 21:00 Furosemide (Lasix) 60 mg 1X ONCE IVP Last administered on 09/11/19at 11:18; Start 09/11/19 at 11:00; Stop 09/11/19 at 11:01; Status DC Diclofenac Sodium (Voltaren) 1 del BID TP Last administered on 09/11/19at 11:18; Start 09/11/19 at 12:00 Methylprednisolone Acetate (DEPO-Medrol 40MG VIAL) 40 mg 1X ONCE IM ; Start 09/11/19 at 11:30; Stop 09/11/19 at 11:31; Status DC Bupivacaine HCl (Sensorcaine-Mpf 0.25%) 10 ml 1X ONCE IJ ; Start 09/11/19 at 11:30; Stop 09/11/19 at 11:31; Status DC Multi-Ingredient Ointment (Hydrocerin Cream) 1 del PRN Q1HR PRN TP DRY SKIN / SCALING; Start 09/11/19 at 11:00; Stop 09/11/19 at 11:01; Status DC Multi-Ingredient Ointment (Hydrocerin Cream) 1 del BID TP Last administered on 09/11/19at 11:18; Start 09/11/19 at 21:00 Active Scripts Active [Darbepoetin Emmanuel In Polysorbat] 60 MCG/0.3 ML Disp.syrin 60 Mcg SQ WEEKLYHS 30 Days Reported Protonix (Pantoprazole Sodium) 40 Mg Tablet.dr 40 Mg PO DAILYAC Multivitamins (Multivitamin) 1 Each Tablet 1 Tab PO DAILY Symbicort 160-4.5 Mcg Inhaler (Budesonide/Formoterol Fumarate) 10.2 Gm Hfa.aer.ad 1 Puff IH BID Spiriva (Tiotropium [place]) 18 Mcg Cap.w.dev 2 Inh IH DAILY Xarelto (Rivaroxaban) 10 Mg Tablet 10 Mg PO DAILY Phoslo (Calcium Acetate) 667 Mg Capsule 1 Cap PO BIDWMEALS K-Tab ER (Potassium Chloride) 20 Meq Tablet.er 20 Meq PO DAILY ROS: Review of Systems Review of System REVIEW OF SYSTEMS: GENERAL: Complains of weakness SKIN: No bruising, hair changes or rashes. EYES: No blurred, double or loss of vision. NOSE AND THROAT: No history of nosebleeds, hoarseness or sore throat. HEART: No history of palpitations, chest pain or shortness of breath on exertion. LUNGS: Denies cough, hemoptysis, wheezing or shortness of breath. GASTROINTESTINAL: Denies changes in appetite, nausea, vomiting, diarrhea or constipation. GENITOURINARY: No history of frequency, urgency, hesitancy or nocturia. NEUROLOGIC: Denies history of numbness, tingling, or tremor. PSYCHIATRIC: No history of panic, anxiety or depression. ENDOCRINE: No history of heat or cold intolerance, polyuria or polydipsia. EXTREMITIES: Denies joint pain, pain on walking or stiffness. Physical Exam: Vital Signs: Vital Signs Date Time Temp Pulse Resp B/P (MAP) Pulse Ox O2 Delivery O2 Flow Rate FiO2 09/11/19 11:10 97.8 74 162/90 (114) 96 Nasal Cannula 2.0 97.8 09/11/19 03:03 16 Physcial Exam: GEN: No apparent distress. Alert and oriented but weak HEENT: Normal cephalic, atraumatic, external auditory canals are patent EYES: Extraocular muscles are intact, pupil are equally round and reactive to light and accommodation MUSCULOSKELETAL: Well developed , well nourished, good range of motion ENDOCRINE: No thyromegaly was palpated LYMPHATICS: No cervical chain or axillary nodes were noted HEMATOPOIETIC: No bruising NECK: Supple, no JVD, no thyromegaly was noted LUNGS: Clear to auscultation in all lung porter without rhonchi or wheezing HEART: RRR, S!, S2 present. Peripheral pulses intact, no obvious murmurs noted ABDOMEN: Soft, nontender. Positive bowel sounds, no organomegaly, normal bowel sounds EXTREMITIES: Without clubbing, cyanosis, or edema. Pedal pulses intact. Negative Homans sign NEUROLOGIC: Generally alert and oriented but weak PSYCHIATRIC: Normal affect, normal mood. Stable SKIN: No ulcerations or rashes, good skin turgor, no jaundice VASCULAR: Good capillary refill, neurovascular bundle appears to be intact Labs: Labs: Laboratory Tests Test 09/10/19 20:45 09/10/19 21:30 09/10/19 21:50 09/11/19 02:50 White Blood Count 6.9 x10^3/uL (4.0-11.0) Red Blood Count 3.48 x10^6/uL (3.50-5.40) Hemoglobin 10.0 g/dL (12.0-15.5) Hematocrit 31.4 % (36.0-47.0) Mean Corpuscular Volume 90 fL (79-100) Mean Corpuscular Hemoglobin 29 pg (25-35) Mean Corpuscular Hemoglobin Concent 32 g/dL (31-37) Red Cell Distribution Width 17.5 % (11.5-14.5) Platelet Count 176 x10^3/uL (140-400) Neutrophils (%) (Auto) 75 % (31-73) Lymphocytes (%) (Auto) 16 % (24-48) Monocytes (%) (Auto) 8 % (0-9) Eosinophils (%) (Auto) 0 % (0-3) Basophils (%) (Auto) 1 % (0-3) Neutrophils # (Auto) 5.2 x10^3/uL (1.8-7.7) Lymphocytes # (Auto) 1.1 x10^3/uL (1.0-4.8) Monocytes # (Auto) 0.5 x10^3/uL (0.0-1.1) Eosinophils # (Auto) 0.0 x10^3/uL (0.0-0.7) Basophils # (Auto) 0.0 x10^3/uL (0.0-0.2) Platelet Estimate Adequate (ADEQUATE) Hypochromasia Slight Poikilocytosis Slight Anisocytosis Slight Helmet Cells Occ Sodium Level 145 mmol/L (136-145) Potassium Level 5.6 mmol/L (3.5-5.1) Chloride Level 108 mmol/L (98-107) Carbon Dioxide Level 25 mmol/L (21-32) Anion Gap 12 (6-14) Blood Urea Nitrogen 51 mg/dL (7-20) Creatinine 3.1 mg/dL (0.6-1.0) Estimated GFR (Cockcroft-Gault) 18.6 BUN/Creatinine Ratio 16 (6-20) Glucose Level 87 mg/dL (70-99) Calcium Level 9.6 mg/dL (8.5-10.1) Total Bilirubin 0.4 mg/dL (0.2-1.0) Aspartate Amino Transf (AST/SGOT) 25 U/L (15-37) Alanine Aminotransferase (ALT/SGPT) 11 U/L (14-59) Alkaline Phosphatase 108 U/L (46-116) Troponin I Quantitative 0.107 ng/mL (0.000-0.055) Total Protein 7.1 g/dL (6.4-8.2) Albumin 2.9 g/dL (3.4-5.0) Albumin/Globulin Ratio 0.7 (1.0-1.7) Glucose (Fingerstick) 62 mg/dL (70-99) Urine Collection Type U cath Urine Color Yellow Urine Clarity Clear Urine pH 5.5 Urine Specific [place] 1.020 Urine Protein >=300 mg/dL (NEG-TRACE) Urine Glucose (UA) Negative mg/dL (NEG) Urine Ketones (Stick) Negative mg/dL (NEG) Urine Blood Trace (NEG) Urine Nitrite Negative (NEG) Urine Bilirubin Negative (NEG) Urine Urobilinogen Dipstick 0.2 mg/dL (0.2 mg/dL) Urine Leukocyte Esterase Negative (NEG) Urine RBC 3-5 /HPF (0-2) Urine WBC Rare /HPF (0-4) Urine Squamous Epithelial Cells Occ /LPF Urine Amorphous Sediment Present /HPF Urine Bacteria 0 /HPF (0-FEW) Urine Mucus Slight /LPF AQ-Ury-W-Type Natriuretic Peptide > 24756 pg/mL (0-124) Test 09/11/19 02:55 09/11/19 06:15 White Blood Count 4.6 x10^3/uL (4.0-11.0) Red Blood Count 3.30 x10^6/uL (3.50-5.40) Hemoglobin 9.6 g/dL (12.0-15.5) Hematocrit 30.1 % (36.0-47.0) Mean Corpuscular Volume 91 fL (79-100) Mean Corpuscular Hemoglobin 29 pg (25-35) Mean Corpuscular Hemoglobin Concent 32 g/dL (31-37) Red Cell Distribution Width 17.9 % (11.5-14.5) Platelet Count 132 x10^3/uL (140-400) Neutrophils (%) (Auto) 69 % (31-73) Lymphocytes (%) (Auto) 21 % (24-48) Monocytes (%) (Auto) 10 % (0-9) Eosinophils (%) (Auto) 0 % (0-3) Basophils (%) (Auto) 0 % (0-3) Neutrophils # (Auto) 3.2 x10^3/uL (1.8-7.7) Lymphocytes # (Auto) 1.0 x10^3/uL (1.0-4.8) Monocytes # (Auto) 0.4 x10^3/uL (0.0-1.1) Eosinophils # (Auto) 0.0 x10^3/uL (0.0-0.7) Basophils # (Auto) 0.0 x10^3/uL (0.0-0.2) Sodium Level 146 mmol/L (136-145) Potassium Level 4.6 mmol/L (3.5-5.1) Chloride Level 111 mmol/L (98-107) Carbon Dioxide Level 29 mmol/L (21-32) Anion Gap 6 (6-14) Blood Urea Nitrogen 52 mg/dL (7-20) Creatinine 3.2 mg/dL (0.6-1.0) Estimated GFR (Cockcroft-Gault) 17.9 BUN/Creatinine Ratio 16 (6-20) Glucose Level 59 mg/dL (70-99) Calcium Level 9.2 mg/dL (8.5-10.1) Total Bilirubin 0.4 mg/dL (0.2-1.0) Aspartate Amino Transf (AST/SGOT) 21 U/L (15-37) Alanine Aminotransferase (ALT/SGPT) 8 U/L (14-59) Alkaline Phosphatase 82 U/L (46-116) Troponin I Quantitative 0.184 ng/mL (0.000-0.055) 0.168 ng/mL (0.000-0.055) Total Protein 6.5 g/dL (6.4-8.2) Albumin 2.3 g/dL (3.4-5.0) Albumin/Globulin Ratio 0.5 (1.0-1.7) Creatine Kinase 126 U/L (26-192) Laboratory Tests Test 09/10/19 20:45 09/10/19 21:30 09/10/19 21:50 09/11/19 02:50 White Blood Count 6.9 x10^3/uL (4.0-11.0) Red Blood Count 3.48 x10^6/uL (3.50-5.40) Hemoglobin 10.0 g/dL (12.0-15.5) Hematocrit 31.4 % (36.0-47.0) Mean Corpuscular Volume 90 fL (79-100) Mean Corpuscular Hemoglobin 29 pg (25-35) Mean Corpuscular Hemoglobin Concent 32 g/dL (31-37) Red Cell Distribution Width 17.5 % (11.5-14.5) Platelet Count 176 x10^3/uL (140-400) Neutrophils (%) (Auto) 75 % (31-73) Lymphocytes (%) (Auto) 16 % (24-48) Monocytes (%) (Auto) 8 % (0-9) Eosinophils (%) (Auto) 0 % (0-3) Basophils (%) (Auto) 1 % (0-3) Neutrophils # (Auto) 5.2 x10^3/uL (1.8-7.7) Lymphocytes # (Auto) 1.1 x10^3/uL (1.0-4.8) Monocytes # (Auto) 0.5 x10^3/uL (0.0-1.1) Eosinophils # (Auto) 0.0 x10^3/uL (0.0-0.7) Basophils # (Auto) 0.0 x10^3/uL (0.0-0.2) Platelet Estimate Adequate (ADEQUATE) Hypochromasia Slight Poikilocytosis Slight Anisocytosis Slight Helmet Cells Occ Sodium Level 145 mmol/L (136-145) Potassium Level 5.6 mmol/L (3.5-5.1) Chloride Level 108 mmol/L (98-107) Carbon Dioxide Level 25 mmol/L (21-32) Anion Gap 12 (6-14) Blood Urea Nitrogen 51 mg/dL (7-20) Creatinine 3.1 mg/dL (0.6-1.0) Estimated GFR (Cockcroft-Gault) 18.6 BUN/Creatinine Ratio 16 (6-20) Glucose Level 87 mg/dL (70-99) Calcium Level 9.6 mg/dL (8.5-10.1) Total Bilirubin 0.4 mg/dL (0.2-1.0) Aspartate Amino Transf (AST/SGOT) 25 U/L (15-37) Alanine Aminotransferase (ALT/SGPT) 11 U/L (14-59) Alkaline Phosphatase 108 U/L (46-116) Troponin I Quantitative 0.107 ng/mL (0.000-0.055) Total Protein 7.1 g/dL (6.4-8.2) Albumin 2.9 g/dL (3.4-5.0) Albumin/Globulin Ratio 0.7 (1.0-1.7) Glucose (Fingerstick) 62 mg/dL (70-99) Urine Collection Type U cath Urine Color Yellow Urine Clarity Clear Urine pH 5.5 Urine Specific [place] 1.020 Urine Protein >=300 mg/dL (NEG-TRACE) Urine Glucose (UA) Negative mg/dL (NEG) Urine Ketones (Stick) Negative mg/dL (NEG) Urine Blood Trace (NEG) Urine Nitrite Negative (NEG) Urine Bilirubin Negative (NEG) Urine Urobilinogen Dipstick 0.2 mg/dL (0.2 mg/dL) Urine Leukocyte Esterase Negative (NEG) Urine RBC 3-5 /HPF (0-2) Urine WBC Rare /HPF (0-4) Urine Squamous Epithelial Cells Occ /LPF Urine Amorphous Sediment Present /HPF Urine Bacteria 0 /HPF (0-FEW) Urine Mucus Slight /LPF UB-Xxy-Y-Type Natriuretic Peptide > 32800 pg/mL (0-124) Test 09/11/19 02:55 09/11/19 06:15 White Blood Count 4.6 x10^3/uL (4.0-11.0) Red Blood Count 3.30 x10^6/uL (3.50-5.40) Hemoglobin 9.6 g/dL (12.0-15.5) Hematocrit 30.1 % (36.0-47.0) Mean Corpuscular Volume 91 fL (79-100) Mean Corpuscular Hemoglobin 29 pg (25-35) Mean Corpuscular Hemoglobin Concent 32 g/dL (31-37) Red Cell Distribution Width 17.9 % (11.5-14.5) Platelet Count 132 x10^3/uL (140-400) Neutrophils (%) (Auto) 69 % (31-73) Lymphocytes (%) (Auto) 21 % (24-48) Monocytes (%) (Auto) 10 % (0-9) Eosinophils (%) (Auto) 0 % (0-3) Basophils (%) (Auto) 0 % (0-3) Neutrophils # (Auto) 3.2 x10^3/uL (1.8-7.7) Lymphocytes # (Auto) 1.0 x10^3/uL (1.0-4.8) Monocytes # (Auto) 0.4 x10^3/uL (0.0-1.1) Eosinophils # (Auto) 0.0 x10^3/uL (0.0-0.7) Basophils # (Auto) 0.0 x10^3/uL (0.0-0.2) Sodium Level 146 mmol/L (136-145) Potassium Level 4.6 mmol/L (3.5-5.1) Chloride Level 111 mmol/L (98-107) Carbon Dioxide Level 29 mmol/L (21-32) Anion Gap 6 (6-14) Blood Urea Nitrogen 52 mg/dL (7-20) Creatinine 3.2 mg/dL (0.6-1.0) Estimated GFR (Cockcroft-Gault) 17.9 BUN/Creatinine Ratio 16 (6-20) Glucose Level 59 mg/dL (70-99) Calcium Level 9.2 mg/dL (8.5-10.1) Total Bilirubin 0.4 mg/dL (0.2-1.0) Aspartate Amino Transf (AST/SGOT) 21 U/L (15-37) Alanine Aminotransferase (ALT/SGPT) 8 U/L (14-59) Alkaline Phosphatase 82 U/L (46-116) Troponin I Quantitative 0.184 ng/mL (0.000-0.055) 0.168 ng/mL (0.000-0.055) Total Protein 6.5 g/dL (6.4-8.2) Albumin 2.3 g/dL (3.4-5.0) Albumin/Globulin Ratio 0.5 (1.0-1.7) Creatine Kinase 126 U/L (26-192) Assessment/Plan Assessment/Plan Acute on chronic systolic and diastolic heart failure Lupus Membranous nephropathy Proteinuria Azotemia Fall Deconditioning Pain Weakness Plan PT OT Home meds DVT prophylaxis Full code Per nephrology see below DAYANARA TSIABarry MAY NEED DIALYSIS CHECK PO4 CHECK IRON D/W CARDIOLOGY ADAIR SOLARES III DO Sep 11, 2019 14:18
--- NOTE | 2019-09-11 14:34 | NUR ---
SS following for discharge planning. SS reviewed pt chart. Pt is from home and is currently on room air. PT/OT ordered. [facility] in past admissions. SS will continue to follow for discharge planning.
--- NOTE | 2019-09-11 15:03 | RAD ---
2 views of the right knee without comparison for joint pain and swelling after recent fall. FINDINGS: There is no definite fracture or acute osseous abnormality, though there is a peculiar divot-like deformity in the articular surface of the patella that could reflect acute or recurrent bone contusion. There is a large joint effusion with significant soft tissue swelling in the suprapatellar region. No radiopaque foreign bodies are seen. No significant degenerative changes are noted. IMPRESSION: 1. Large suprapatellar joint effusion. 2. No definite acute fracture or osseous abnormality, though there is a peculiar divot-like deformity of the articular surface of the patella that could reflect an acute bone contusion or sequela of acute or recurrent trauma. Consider further evaluation with MRI to assess for internal derangement. Electronically signed by: Juan Ramon Murillo MD (09/11/2019 2:59 PM) [facility]
[2019-09-11] MEDS: LABETALOL HCL 200 MG TABLET PO SCH (20:48)
[2019-09-11] MEDS ORDERED: DARBEPOETIN ALFA 60 MCG/0.3 ML DISP.SYRIN. SQ SCH (21:00)
--- NOTE | 2019-09-11 23:17 | CONS ---
DATE OF CONSULTATION: 09/11/2019 ATTENDING PHYSICIAN: Dr. Summers. REASON FOR CONSULTATION: The patient was seen at the request of Dr. Summers for rehab evaluation. HISTORY OF PRESENT ILLNESS: This is a 59-year-old female patient being followed in the Cardiology Clinic for congestive heart failure and hypertension. The patient apparently fell, landed on her knees while trying to get out of the car in the last day or so. She was found hypoglycemic, hypothermic on presentation in the Emergency Room. The patient complains of right knee pain and swelling. Also noted with lower extremity edema. She had arterial Doppler studies, which were negative for any significant stenotic disease. The patient with history of chronic kidney disease stage 4 or about 3, creatinine being 3.2. The patient also was found with hypertension. Cardiology evaluating for increased troponin level. She had echocardiogram, which failed to reveal any significant abnormalities. The patient also had proven membranous nephropathy with proteinuria. The patient also with known atrial fibrillation, on anticoagulation, hypertension, hyperlipidemia, chronic obstructive pulmonary disease, previous pulmonary embolism, gastroesophageal reflux disease, anemia, rheumatoid arthritis. ALLERGIES: Not known allergic to any medication. FAMILY HISTORY: Hypercholesterolemia and hypertension. SOCIAL HISTORY: She lives alone, had stairs to manage and she had been using a roller walker to get around for the last one month or so. PHYSICAL EXAMINATION: On physical examination today revealed a middle-aged female. She is alert, oriented to time, place, person and circumstance and follows commands appropriately, moves all 4 extremities voluntarily where she had 4+/5 grade muscle strength with relatively increased weakness in hand intrinsic muscles and to some extent at right knee secondary to pain in her right knee. She had right knee joint effusion. She had mild crepitus on range of motion of her knee joints. She had significant stiffness of her right knee and pain on attempted movement of her right knee, but she seems to have good quadriceps muscle strength. I did not see any obvious rupture of right quadriceps or patellar tendon. She had pain free range of motion of left knee and both hip joints and lumbar spine. Straight leg raising test is negative bilaterally. She had some edema of her calf and dry scaly skin of her extremities. She had increased warmth of skin of right knee when compared to the left side. Negative Tinel sign over ulnar nerve at the wrist and elbow and over median nerve at the wrist. She had 1-2+ deep tendon reflexes and she seems to have equal perception of touch and pinprick sensation bilaterally. She can roll in the bed from side to side. I have not tested her transfers or ambulation skills at present time. ASSESSMENT: A middle-aged female with atrial fibrillation, hypertension, hyperlipidemia, chronic obstructive pulmonary disease, previous pulmonary embolism, gastroesophageal reflux disease, history of rheumatoid arthritis, anemia, chronic renal insufficiency and chronic kidney disease stage 3 or 4, being considered for hemodialysis. The patient is on anticoagulation and recent fall and sprained right knee, superimposed on degenerative joint disease of her knees with hemarthrosis in right knee. RECOMMENDATIONS: As she is on heparin to hold off draining her right knee and injecting with cortisone until her Protime/INR are under normal range. To ask physical therapy and occupational therapy to see her. To obtain x-rays of her right knee to try diclofenac cream and ice packs to her right knee. To also get knee immobilizer. Dr. Summers, I appreciate asking me to participate in the care of this interesting patient. I will be glad to follow her with you as needed for rehabilitation. FAITH ADDISON MD DR: VALERIA/isai JOB#: [id number] / [id number]
[2019-09-12] VITALS (7 sets, daily range): BP systolic 133–192; BP diastolic 70–93
[2019-09-12 04:43] LABS: HEMOGLOBIN 8.5 g/dL (12.0-15.5); RED BLOOD COUNT 2.98 x10^6/uL (3.50-5.40); WHITE BLOOD COUNT 4.2 x10^3/uL (4.0-11.0)
--- NOTE | 2019-09-12 04:47 | NUR ---
PT PLACED ON BEDPAN, UNABLE TO VOID, BLADDER DISTENDED, PT BLADDER SCAN SHOWED [id number], WILL INFORMED DR CHOI HEEL BREASTER. ENRIQUE RECEIVED TO INSERT PULLIAM. PMRN
[2019-09-12 05:04] LABS: CALCIUM 8.5 mg/dL (8.5-10.1); CREATININE 3.3 mg/dL (0.6-1.0); GFR 17.3; PHOSPHORUS 4.4 mg/dL (2.6-4.7); POTASSIUM 4.3 mmol/L (3.5-5.1)
[2019-09-12] MEDS: LABETALOL HCL 200 MG TABLET PO SCH ×2 (08:38→21:33)
[2019-09-12] MEDS: DICLOFENAC SODIUM 1% TOPICAL GEL 100GM TUBE. TP SCH ×2 (08:39→21:32)
[2019-09-12] MEDS: MINERAL OIL/PETROLATUM TOPICAL CREAM 113GM JAR. TP SCH ×2 (08:40→21:32)
--- NOTE | 2019-09-12 09:19 | PDOC ---
SUBJECTIVE ROS No shortness of breath, feeling tired OBJECTIVE Vital Signs Vital Signs Date Time Temp Pulse Resp B/P (MAP) Pulse Ox O2 Delivery O2 Flow Rate FiO2 09/12/19 08:38 70 159/86 09/12/19 06:54 97.4 14 100 Nasal Cannula 2.0 97.4 I & 0 Intake and Output 09/12/19 07:00 Intake Total 330 ml Output Total 770 ml Balance -440 ml Intake Oral 330 ml Output Urine Total 770 ml # Bowel Movements 2 PHYSICAL EXAM Physical Exam General: No acute distress HEENT: On 02 by NC , 100% O2 sats Neck Supple Lungs: Clear to auscultation, Non labored Heart: Regular rate, Normal S1, Normal S2, systolic murmur + Abdomen: Soft, No tenderness Extremities: LE edema 2-3 + Skin: No rash Neuro: Grossly normal Psych/Mental Status: Mental status NL, Mood NL Reid + DIAGNOSIS/ASSESSMENT Assessment & Plan RIYA vs progression- Urinary retention +, has a reid placed Hospitalized last year x 2 Currently No Uremic symptoms, E-Lytes stable No emergent 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 s/p cardiac Cath 06/07, Normal Membranous Nephropathy Dx in post Bx Proteinuria at Dx was 8 gm, improved most recent Pr/Cr <200 holding due to worsening renal function SLE- Use to follow with Rheumatology (Dr Hill) ,was on Imuran Currently only on Hydroxychloroquine Not seen for long time due to the financial constraints HTN- antihypertensives Renal Doppler - No Doppler evidence of greater than 60% stenosis within the renal arteries. Anemia-Follows with Dr. Baez as OP, On [facility] COMMENT/RELEVANT DATA Meds Current Medications Medications (Trade) Dose Ordered Sig/Blaine Start Time Stop Time Status Last Admin Dose Admin Acetaminophen (Tylenol) 650 mg PRN Q4HRS PRN 09/10/19 23:45 09/11/19 23:44 DC Bupivacaine HCl (Sensorcaine-Mpf 0.25%) 10 ml 1X ONCE 09/11/19 11:30 09/11/19 11:31 DC Calcium Gluconate (Calcium Gluconate) 1,000 mg 1X ONCE 09/10/19 23:45 09/10/19 23:46 DC 09/10/19 23:59 1,000 MG Darbepoetin Emmanuel (ARANESP for DIALYSIS PTS) 60 mcg WEEKLYHS 09/11/19 21:00 09/11/19 20:47 60 MCG Dextrose (Dextrose 50%-Water Syringe) 25 gm 1X ONCE 09/10/19 23:45 09/10/19 23:46 DC 09/10/19 23:57 25 GM Diclofenac Sodium (Voltaren) 1 del BID 09/11/19 12:00 09/12/19 08:39 1 DEL Furosemide (Lasix) 60 mg 1X ONCE 09/11/19 11:00 09/11/19 11:01 DC 09/11/19 11:18 60 MG Heparin Sodium (Porcine) (Heparin Sodium) 1,600 unit PRN Q6HRS PRN 09/10/19 23:45 09/11/19 16:30 DC Heparin Sodium/ Dextrose 250 ml @ 0 mls/hr CONT PRN 09/10/19 23:45 09/11/19 10:46 DC 09/11/19 00:14 7.56 MLS/HR Hydralazine HCl (Apresoline Inj) 10 mg Q4HRS PRN 09/11/19 00:00 09/11/19 03:30 10 MG Info (Anti-Coagulation Monitoring By Pharmacy) 1 each PRN DAILY PRN 09/11/19 08:15 09/11/19 16:30 DC Insulin Human Regular (HumuLIN R VIAL) 10 unit 1X ONCE 09/10/19 23:45 09/10/19 23:46 DC 09/11/19 00:16 10 UNIT Labetalol HCl (Normodyne Iv Push) 10 mg 1X ONCE 09/10/19 23:45 09/10/19 23:46 DC 09/10/19 22:30 10 MG Labetalol HCl (Trandate) 200 mg BID 09/11/19 21:00 09/12/19 08:38 200 MG Methylprednisolone Acetate (DEPO-Medrol 40MG VIAL) 40 mg 1X ONCE 09/11/19 11:30 09/11/19 11:31 DC Multi-Ingredient Ointment (Hydrocerin Cream) 1 del BID 09/11/19 21:00 09/12/19 08:40 1 DEL Nitroglycerin (Nitrostat) 0.4 mg PRN Q5MIN PRN 09/10/19 23:45 09/11/19 23:44 DC Ondansetron HCl (Zofran) 4 mg PRN Q8HRS PRN 09/10/19 23:45 09/11/19 23:44 DC Sodium Chloride 1,000 ml @ 1,000 mls/hr Q1H 09/10/19 22:15 09/10/19 23:14 DC 09/10/19 22:40 1,000 MLS/HR Lab Laboratory Tests Test 09/12/19 03:40 09/12/19 04:20 Sodium Level 146 mmol/L (136-145) Potassium Level 4.3 mmol/L (3.5-5.1) Chloride Level 111 mmol/L (98-107) Carbon Dioxide Level 26 mmol/L (21-32) Anion Gap 9 (6-14) Blood Urea Nitrogen 55 mg/dL (7-20) Creatinine 3.3 mg/dL (0.6-1.0) Estimated GFR (Cockcroft-Gault) 17.3 Glucose Level 87 mg/dL (70-99) Calcium Level 8.5 mg/dL (8.5-10.1) Phosphorus Level 4.4 mg/dL (2.6-4.7) Magnesium Level 2.0 mg/dL (1.8-2.4) Iron Level 28 ug/dL (50-170) Total Iron Binding Capacity 126 ug/dL (250-450) Iron Saturation 22 % (15-34) White Blood Count 4.2 x10^3/uL (4.0-11.0) Red Blood Count 2.98 x10^6/uL (3.50-5.40) Hemoglobin 8.5 g/dL (12.0-15.5) Hematocrit 27.0 % (36.0-47.0) Mean Corpuscular Volume 91 fL (79-100) Mean Corpuscular Hemoglobin 29 pg (25-35) Mean Corpuscular Hemoglobin Concent 32 g/dL (31-37) Red Cell Distribution Width 18.0 % (11.5-14.5) Platelet Count 133 x10^3/uL (140-400) Results All relevant outside records, renal labs, imaging studies, telemetry/EKG's were reviewed. Other 1. Stable diffuse increased interstitial opacity due to interstitial infiltrate or chronic interstitial changes. 2. Stable cardiomegaly. SHEILA CREWS MD Sep 12, 2019 09:19
--- NOTE | 2019-09-12 09:45 | PDOC ---
PROGRESS NOTES Subjective Subjective She admits less pain in her right knee. Objective Objective Vital Signs Date Time Temp Pulse Resp B/P (MAP) Pulse Ox O2 Delivery O2 Flow Rate FiO2 09/12/19 08:38 70 159/86 09/12/19 06:54 97.4 14 100 Nasal Cannula 2.0 97.4 Intake and Output 09/12/19 07:00 Intake Total 330 ml Output Total 770 ml Balance -440 ml Intake Oral 330 ml Output Urine Total 770 ml # Bowel Movements 2 Physical Exam Physical Exam She is supine in bed and continues with right knee joint effusion and painfully limited knee joint ROM. X-ray revealed defect over articular surface of patella and radiology wants mri scan to rule out any fracture or internal derangement of right knee. Assessment Assessment Problems Medical Problems: (1) Accelerated hypertension Status: Acute (2) CKD (chronic kidney disease) Status: Acute (3) Fall Status: Acute (4) Hypothermia Status: Acute Plan Plan of Care Await mri scan of right knee and to consider aspiration and steroid injection when medically stable,if no fracture. Comment Review of Relevant I have reviewed the following items gregorio (where applicable) has been applied. Labs Laboratory Tests Test 09/10/19 20:45 09/10/19 21:30 09/10/19 21:50 09/11/19 02:50 White Blood Count 6.9 x10^3/uL (4.0-11.0) Red Blood Count 3.48 x10^6/uL (3.50-5.40) Hemoglobin 10.0 g/dL (12.0-15.5) Hematocrit 31.4 % (36.0-47.0) Mean Corpuscular Volume 90 fL (79-100) Mean Corpuscular Hemoglobin 29 pg (25-35) Mean Corpuscular Hemoglobin Concent 32 g/dL (31-37) Red Cell Distribution Width 17.5 % (11.5-14.5) Platelet Count 176 x10^3/uL (140-400) Neutrophils (%) (Auto) 75 % (31-73) Lymphocytes (%) (Auto) 16 % (24-48) Monocytes (%) (Auto) 8 % (0-9) Eosinophils (%) (Auto) 0 % (0-3) Basophils (%) (Auto) 1 % (0-3) Neutrophils # (Auto) 5.2 x10^3/uL (1.8-7.7) Lymphocytes # (Auto) 1.1 x10^3/uL (1.0-4.8) Monocytes # (Auto) 0.5 x10^3/uL (0.0-1.1) Eosinophils # (Auto) 0.0 x10^3/uL (0.0-0.7) Basophils # (Auto) 0.0 x10^3/uL (0.0-0.2) Platelet Estimate Adequate (ADEQUATE) Hypochromasia Slight Poikilocytosis Slight Anisocytosis Slight Helmet Cells Occ Sodium Level 145 mmol/L (136-145) Potassium Level 5.6 mmol/L (3.5-5.1) Chloride Level 108 mmol/L (98-107) Carbon Dioxide Level 25 mmol/L (21-32) Anion Gap 12 (6-14) Blood Urea Nitrogen 51 mg/dL (7-20) Creatinine 3.1 mg/dL (0.6-1.0) Estimated GFR (Cockcroft-Gault) 18.6 BUN/Creatinine Ratio 16 (6-20) Glucose Level 87 mg/dL (70-99) Calcium Level 9.6 mg/dL (8.5-10.1) Total Bilirubin 0.4 mg/dL (0.2-1.0) Aspartate Amino Transf (AST/SGOT) 25 U/L (15-37) Alanine Aminotransferase (ALT/SGPT) 11 U/L (14-59) Alkaline Phosphatase 108 U/L (46-116) Troponin I Quantitative 0.107 ng/mL (0.000-0.055) Total Protein 7.1 g/dL (6.4-8.2) Albumin 2.9 g/dL (3.4-5.0) Albumin/Globulin Ratio 0.7 (1.0-1.7) Glucose (Fingerstick) 62 mg/dL (70-99) Urine Collection Type U cath Urine Color Yellow Urine Clarity Clear Urine pH 5.5 Urine Specific [place] 1.020 Urine Protein >=300 mg/dL (NEG-TRACE) Urine Glucose (UA) Negative mg/dL (NEG) Urine Ketones (Stick) Negative mg/dL (NEG) Urine Blood Trace (NEG) Urine Nitrite Negative (NEG) Urine Bilirubin Negative (NEG) Urine Urobilinogen Dipstick 0.2 mg/dL (0.2 mg/dL) Urine Leukocyte Esterase Negative (NEG) Urine RBC 3-5 /HPF (0-2) Urine WBC Rare /HPF (0-4) Urine Squamous Epithelial Cells Occ /LPF Urine Amorphous Sediment Present /HPF Urine Bacteria 0 /HPF (0-FEW) Urine Mucus Slight /LPF [id number] Natriuretic Peptide > 20648 pg/mL (0-124) Test 09/11/19 02:55 09/11/19 06:15 09/12/19 03:40 09/12/19 04:20 White Blood Count 4.6 x10^3/uL (4.0-11.0) 4.2 x10^3/uL (4.0-11.0) Red Blood Count 3.30 x10^6/uL (3.50-5.40) 2.98 x10^6/uL (3.50-5.40) Hemoglobin 9.6 g/dL (12.0-15.5) 8.5 g/dL (12.0-15.5) Hematocrit 30.1 % (36.0-47.0) 27.0 % (36.0-47.0) Mean Corpuscular Volume 91 fL (79-100) 91 fL (79-100) Mean Corpuscular Hemoglobin 29 pg (25-35) 29 pg (25-35) Mean Corpuscular Hemoglobin Concent 32 g/dL (31-37) 32 g/dL (31-37) Red Cell Distribution Width 17.9 % (11.5-14.5) 18.0 % (11.5-14.5) Platelet Count 132 x10^3/uL (140-400) 133 x10^3/uL (140-400) Neutrophils (%) (Auto) 69 % (31-73) Lymphocytes (%) (Auto) 21 % (24-48) Monocytes (%) (Auto) 10 % (0-9) Eosinophils (%) (Auto) 0 % (0-3) Basophils (%) (Auto) 0 % (0-3) Neutrophils # (Auto) 3.2 x10^3/uL (1.8-7.7) Lymphocytes # (Auto) 1.0 x10^3/uL (1.0-4.8) Monocytes # (Auto) 0.4 x10^3/uL (0.0-1.1) Eosinophils # (Auto) 0.0 x10^3/uL (0.0-0.7) Basophils # (Auto) 0.0 x10^3/uL (0.0-0.2) Sodium Level 146 mmol/L (136-145) 146 mmol/L (136-145) Potassium Level 4.6 mmol/L (3.5-5.1) 4.3 mmol/L (3.5-5.1) Chloride Level 111 mmol/L (98-107) 111 mmol/L (98-107) Carbon Dioxide Level 29 mmol/L (21-32) 26 mmol/L (21-32) Anion Gap 6 (6-14) 9 (6-14) Blood Urea Nitrogen 52 mg/dL (7-20) 55 mg/dL (7-20) Creatinine 3.2 mg/dL (0.6-1.0) 3.3 mg/dL (0.6-1.0) Estimated GFR (Cockcroft-Gault) 17.9 17.3 BUN/Creatinine Ratio 16 (6-20) Glucose Level 59 mg/dL (70-99) 87 mg/dL (70-99) Calcium Level 9.2 mg/dL (8.5-10.1) 8.5 mg/dL (8.5-10.1) Total Bilirubin 0.4 mg/dL (0.2-1.0) Aspartate Amino Transf (AST/SGOT) 21 U/L (15-37) Alanine Aminotransferase (ALT/SGPT) 8 U/L (14-59) Alkaline Phosphatase 82 U/L (46-116) Troponin I Quantitative 0.184 ng/mL (0.000-0.055) 0.168 ng/mL (0.000-0.055) Total Protein 6.5 g/dL (6.4-8.2) Albumin 2.3 g/dL (3.4-5.0) Albumin/Globulin Ratio 0.5 (1.0-1.7) Creatine Kinase 126 U/L (26-192) Phosphorus Level 4.4 mg/dL (2.6-4.7) Magnesium Level 2.0 mg/dL (1.8-2.4) Iron Level 28 ug/dL (50-170) Total Iron Binding Capacity 126 ug/dL (250-450) Iron Saturation 22 % (15-34) Laboratory Tests Test 09/12/19 03:40 09/12/19 04:20 Sodium Level 146 mmol/L (136-145) Potassium Level 4.3 mmol/L (3.5-5.1) Chloride Level 111 mmol/L (98-107) Carbon Dioxide Level 26 mmol/L (21-32) Anion Gap 9 (6-14) Blood Urea Nitrogen 55 mg/dL (7-20) Creatinine 3.3 mg/dL (0.6-1.0) Estimated GFR (Cockcroft-Gault) 17.3 Glucose Level 87 mg/dL (70-99) Calcium Level 8.5 mg/dL (8.5-10.1) Phosphorus Level 4.4 mg/dL (2.6-4.7) Magnesium Level 2.0 mg/dL (1.8-2.4) Iron Level 28 ug/dL (50-170) Total Iron Binding Capacity 126 ug/dL (250-450) Iron Saturation 22 % (15-34) White Blood Count 4.2 x10^3/uL (4.0-11.0) Red Blood Count 2.98 x10^6/uL (3.50-5.40) Hemoglobin 8.5 g/dL (12.0-15.5) Hematocrit 27.0 % (36.0-47.0) Mean Corpuscular Volume 91 fL (79-100) Mean Corpuscular Hemoglobin 29 pg (25-35) Mean Corpuscular Hemoglobin Concent 32 g/dL (31-37) Red Cell Distribution Width 18.0 % (11.5-14.5) Platelet Count 133 x10^3/uL (140-400) Medications Current Medications Labetalol HCl (Normodyne Iv Push) 10 mg 1X ONCE IVP Last administered on 09/10/19at 21:38; Start 09/10/19 at 21:30; Stop 09/10/19 at 21:31; Status DC Dextrose (Dextrose 50%-Water Syringe) 25 gm STK-MED ONCE IV ; Start 09/10/19 at 21:37; Stop 09/10/19 at 21:37; Status DC Dextrose (Dextrose 50%-Water Syringe) 25 gm 1X ONCE IV Last administered on 09/10/19at 21:44; Start 09/10/19 at 21:45; Stop 09/10/19 at 21:46; Status DC Sodium Chloride 1,000 ml @ 1,000 mls/hr Q1H IV Last administered on 09/10/19at 22:40; Start 09/10/19 at 22:15; Stop 09/10/19 at 23:14; Status DC Labetalol HCl (Normodyne Iv Push) 10 mg 1X ONCE IVP ; Start 09/10/19 at 23:45; Stop 09/10/19 at 23:46; Status UNV Heparin Sodium/ Dextrose 250 ml @ 0 mls/hr CONT PRN IV PER PROTOCOL Last administered on 09/11/19at 00:14; Start 09/10/19 at 23:45; Stop 09/11/19 at 10:46; Status DC Heparin Sodium (Porcine) (Heparin Sodium) 1,600 unit PRN Q6HRS PRN IV FOR UFH LEVEL LESS THAN 0.2; Start 09/10/19 at 23:45; Stop 09/11/19 at 16:30; Status DC Ondansetron HCl (Zofran) 4 mg PRN Q8HRS PRN IV NAUSEA/VOMITING; Start 09/10/19 at 23:45; Stop 09/11/19 at 23:44; Status DC Acetaminophen (Tylenol) 650 mg PRN Q4HRS PRN PO FEVER; Start 09/10/19 at 23:45; Stop 09/11/19 at 23:44; Status DC Nitroglycerin (Nitrostat) 0.4 mg PRN Q5MIN PRN SL CHEST PAIN; Start 09/10/19 at 23:45; Stop 09/11/19 at 23:44; Status DC Calcium Gluconate (Calcium Gluconate) 1,000 mg 1X ONCE IVP Last administered on 09/10/19at 23:59; Start 09/10/19 at 23:45; Stop 09/10/19 at 23:46; Status DC Dextrose (Dextrose 50%-Water Syringe) 25 gm 1X ONCE IV Last administered on 09/10/19at 23:57; Start 09/10/19 at 23:45; Stop 09/10/19 at 23:46; Status DC Insulin Human Regular (HumuLIN R VIAL) 10 unit 1X ONCE IV Last administered on 09/11/19at 00:16; Start 09/10/19 at 23:45; Stop 09/10/19 at 23:46; Status DC Labetalol HCl (Normodyne Iv Push) 10 mg 1X ONCE IVP Last administered on 09/10/19at 22:30; Start 09/10/19 at 23:45; Stop 09/10/19 at 23:46; Status DC Hydralazine HCl (Apresoline Inj) 10 mg Q4HRS PRN IVP ELEVATED BP, SEE COMMENTS Last administered on 09/11/19at 03:30; Start 09/11/19 at 00:00 Info (Anti-Coagulation Monitoring By Pharmacy) 1 each PRN DAILY PRN MC SEE COMMENTS; Start 09/11/19 at 08:15; Stop 09/11/19 at 16:30; Status DC Furosemide (Lasix) 40 mg 1X ONCE IVP ; Start 09/11/19 at 11:30; Stop 09/11/19 at 11:31; Status Cancel Darbepoetin Emmanuel (ARANESP for DIALYSIS PTS) 60 mcg WEEKLYHS SQ Last administered on 09/11/19at 20:47; Start 09/11/19 at 21:00 Furosemide (Lasix) 60 mg 1X ONCE IVP Last administered on 09/11/19at 11:18; Start 09/11/19 at 11:00; Stop 09/11/19 at 11:01; Status DC Diclofenac Sodium (Voltaren) 1 del BID TP Last administered on 09/12/19at 08:39; Start 09/11/19 at 12:00 Methylprednisolone Acetate (DEPO-Medrol 40MG VIAL) 40 mg 1X ONCE IM ; Start 09/11/19 at 11:30; Stop 09/11/19 at 11:31; Status DC Bupivacaine HCl (Sensorcaine-Mpf 0.25%) 10 ml 1X ONCE IJ ; Start 09/11/19 at 11:30; Stop 09/11/19 at 11:31; Status DC Multi-Ingredient Ointment (Hydrocerin Cream) 1 del PRN Q1HR PRN TP DRY SKIN / SCALING; Start 09/11/19 at 11:00; Stop 09/11/19 at 11:01; Status DC Multi-Ingredient Ointment (Hydrocerin Cream) 1 del BID TP Last administered on 09/12/19at 08:40; Start 09/11/19 at 21:00 Labetalol HCl (Trandate) 200 mg BID PO Last administered on 09/12/19at 08:38; Start 09/11/19 at 21:00 Polyethylene Glycol (miraLAX PACKET) 17 gm DAILY PO ; Start 09/12/19 at 10:00 Active Scripts Active [Darbepoetin Emmanuel In Polysorbat] 60 MCG/0.3 ML Disp.syrin 60 Mcg SQ WEEKLYHS 30 Days Reported Protonix (Pantoprazole Sodium) 40 Mg Tablet.dr 40 Mg PO DAILYAC Multivitamins (Multivitamin) 1 Each Tablet 1 Tab PO DAILY Symbicort 160-4.5 Mcg Inhaler (Budesonide/Formoterol Fumarate) 10.2 Gm Hfa.aer.ad 1 Puff IH BID Spiriva (Tiotropium Gore) 18 Mcg Cap.w.dev 2 Inh IH DAILY Xarelto (Rivaroxaban) 10 Mg Tablet 10 Mg PO DAILY Phoslo (Calcium Acetate) 667 Mg Capsule 1 Cap PO BIDWMEALS K-Tab ER (Potassium Chloride) 20 Meq Tablet.er 20 Meq PO DAILY Vitals/I & O Vital Sign - Last 24 Hours 09/11/19 09/11/19 09/11/19 09/11/19 11:10 15:51 19:35 19:39 Temp 97.8 98.0 98.0 97.8 98.0 98.0 Pulse 74 72 72 Resp 16 B/P (MAP) 162/90 (114) 148/83 (104) 122/75 (91) Pulse Ox 96 92 100 O2 Delivery Nasal Cannula Nasal Cannula Room Air Nasal Cannula O2 Flow Rate 2.0 2.0 2.0 09/11/19 09/11/19 09/12/19 09/12/19 20:48 23:49 03:49 06:54 Temp 98.3 98.0 97.4 98.3 98.0 97.4 Pulse 72 77 80 70 Resp 16 14 14 B/P (MAP) 122/75 149/79 (102) 133/70 (91) 159/86 (110) Pulse Ox 96 100 100 O2 Delivery Room Air Nasal Cannula Nasal Cannula O2 Flow Rate 2.0 2.0 09/12/19 08:38 Pulse 70 B/P (MAP) 159/86 Intake and Output 09/11/19 09/11/19 09/12/19 15:00 23:00 07:00 Intake Total 120 ml 100 ml 110 ml Output Total 450 ml 320 ml Balance 120 ml -350 ml -210 ml FAITH ADDISON MD Sep 12, 2019 09:45
[2019-09-12] MEDS: POLYETHYLENE GLYCOL 3350 17 GM PACKET. PO SCH (10:02)
--- NOTE | 2019-09-12 11:40 | NUR ---
SS following up with discharge planning. PT/OT recommended acute rehabilitation. enterprise resource planner, Caitlyn Brandon, met with pt to discuss discharge planning and rehabilitation. Pt declined acute rehabilitation and requested referrals be phoned and faxed to [facility], ; fax [phone], and [facility], ; fax [phone]. enterprise resource planner phoned and faxed referrals. SS will await acceptance decisions and insurance determinations and proceed accordingly with discharge planning.
--- NOTE | 2019-09-12 11:57 | PDOC ---
CURTIS DOE AUDIO VISUAL AIDS DIRECTOR 09/12/19 1157: CARDIO Progress Notes Date and Time Date of Service 09/12/2019 Time of Evaluation 1000 Subjective Subjective: No Chest Pain, No Palpitations, Other (SOA better) Vitals Vitals Vital Signs Date Time Temp Pulse Resp B/P (MAP) Pulse Ox O2 Delivery O2 Flow Rate FiO2 09/12/19 11:10 97.8 74 14 171/90 (117) 100 Nasal Cannula 2.0 97.8 Weight Weight [ ] Input and Output Intake and Output Intake and Output 09/12/19 07:00 Intake Total 330 ml Output Total 770 ml Balance -440 ml Intake Oral 330 ml Output Urine Total 770 ml # Bowel Movements 2 Laboratory Labs Laboratory Tests Test 09/12/19 03:40 09/12/19 04:20 Sodium Level 146 mmol/L (136-145) Potassium Level 4.3 mmol/L (3.5-5.1) Chloride Level 111 mmol/L (98-107) Carbon Dioxide Level 26 mmol/L (21-32) Anion Gap 9 (6-14) Blood Urea Nitrogen 55 mg/dL (7-20) Creatinine 3.3 mg/dL (0.6-1.0) Estimated GFR (Cockcroft-Gault) 17.3 Glucose Level 87 mg/dL (70-99) Calcium Level 8.5 mg/dL (8.5-10.1) Phosphorus Level 4.4 mg/dL (2.6-4.7) Magnesium Level 2.0 mg/dL (1.8-2.4) Iron Level 28 ug/dL (50-170) Total Iron Binding Capacity 126 ug/dL (250-450) Iron Saturation 22 % (15-34) White Blood Count 4.2 x10^3/uL (4.0-11.0) Red Blood Count 2.98 x10^6/uL (3.50-5.40) Hemoglobin 8.5 g/dL (12.0-15.5) Hematocrit 27.0 % (36.0-47.0) Mean Corpuscular Volume 91 fL (79-100) Mean Corpuscular Hemoglobin 29 pg (25-35) Mean Corpuscular Hemoglobin Concent 32 g/dL (31-37) Red Cell Distribution Width 18.0 % (11.5-14.5) Platelet Count 133 x10^3/uL (140-400) Physical Exam HEENT: Neck Supple W Full Motion Chest: Symmetric LUNGS: Other (basilar crackles) Heart: RRR (SR) Abdomen: Soft N/T Extremities: Other (right knee effusion; 2+ bilateral LE pitting edema ) Neurology: alert, oriented, follow commands Assessment Assessment 1. Traumatic mechanical fall: right knee effusion with possible hemarthrosis, could not rule ligamental injury nor fracture. No presyncopal event. 2. Acute on chronic diastolic CHF: appears compensated 3. Elevated troponin mild elevation demand mediated. EKG SR with LV strain pattern no acute changes. 4. Mild valvular disease: mild and TR 5. HTN: labile episode 6. RIYA on CKD with hyperkalemia: K normal. Nephrology following 7. Hypoglycemia: no hx of DM 8. Weakness: potentially this could related to hypoglycemia. She did skipped lunch and this occurred around 4 PM yesterday, fell and landed on her knees and could not get up after. 9. PAFIB: maintaining SR 10. Hx of PE/SLE and membranous nephropathy Recommendations 1. PO Lasix, 2. Continue labetolol. Hydralazine IV PRN. Monitor BP trend. No ACEi/ARB 3. Hold xarelto for potential knee aspiration. 4. Supportive care BRENDA RAY MD 09/12/19 1610: CARDIO Progress Notes Assessment Assessment Patient seen and examined. Agree with [employer]'s assessment and plan. Acute on chronic diastolic heart failure better compensated PAF maintaining sinus rhythm Anticoagulation on hold for possible arthrocentesis CURTIS DOE APRN Sep 12, 2019 11:57 BRENDA RAY MD Sep 12, 2019 16:10
--- NOTE | 2019-09-12 12:01 | PDOC ---
[employer] PROGRESS NOTE Chief Complaint Chief Complaint Acute on chronic systolic and diastolic heart failure Traumatic mechanical fall: right knee effusion with possible hemarthrosis RIYA ATN sprained right knee PAFIB: maintaining SR Anemia Lupus Membranous nephropathy Proteinuria Azotemia Deconditioning Pain Weakness History of Present Illness History of Present Illness 09/12/19 Pt seen and examined. Pt was resting in NAD during meeting and awoke for examination. Pt was pleasant and conversant. Pt denies f/c/n/v. Pt claims to feel weaker and more lethargic than normal DW nurse regarding anemia. Pt's chart reviewed. Vitals/I&O Vitals/I&O: Vital Signs Date Time Temp Pulse Resp B/P (MAP) Pulse Ox O2 Delivery O2 Flow Rate FiO2 09/12/19 11:10 97.8 74 14 171/90 (117) 100 Nasal Cannula 2.0 97.8 I & O 09/11/19 09/11/19 09/12/19 15:00 23:00 07:00 Intake Total 120 ml 100 ml 110 ml Output Total 450 ml 320 ml Balance 120 ml -350 ml -210 ml Physical Exam General: Alert, Oriented X3, Cooperative, No acute distress Heart: Regular rate (SR), Normal S1, Normal S2, Other (4/6 systolic murmur to LLS border; S4) Lungs: Other Abdomen: Soft, No tenderness Extremities: No cyanosis, Other (2-3+ bilateral LE pitting edema) Skin: No breakdown, No significant lesion Labs Labs: Laboratory Tests Test 09/12/19 03:40 09/12/19 04:20 Sodium Level 146 mmol/L (136-145) Potassium Level 4.3 mmol/L (3.5-5.1) Chloride Level 111 mmol/L (98-107) Carbon Dioxide Level 26 mmol/L (21-32) Anion Gap 9 (6-14) Blood Urea Nitrogen 55 mg/dL (7-20) Creatinine 3.3 mg/dL (0.6-1.0) Estimated GFR (Cockcroft-Gault) 17.3 Glucose Level 87 mg/dL (70-99) Calcium Level 8.5 mg/dL (8.5-10.1) Phosphorus Level 4.4 mg/dL (2.6-4.7) Magnesium Level 2.0 mg/dL (1.8-2.4) Iron Level 28 ug/dL (50-170) Total Iron Binding Capacity 126 ug/dL (250-450) Iron Saturation 22 % (15-34) White Blood Count 4.2 x10^3/uL (4.0-11.0) Red Blood Count 2.98 x10^6/uL (3.50-5.40) Hemoglobin 8.5 g/dL (12.0-15.5) Hematocrit 27.0 % (36.0-47.0) Mean Corpuscular Volume 91 fL (79-100) Mean Corpuscular Hemoglobin 29 pg (25-35) Mean Corpuscular Hemoglobin Concent 32 g/dL (31-37) Red Cell Distribution Width 18.0 % (11.5-14.5) Platelet Count 133 x10^3/uL (140-400) Review of Systems Review of Systems: Gen: denies f/c GI: denies N/V Cardio: denies chest pain/ palpations Resp denies SOB Assessment and Plan Assessmemt and Plan Assessment/Plan Acute on chronic systolic and diastolic heart failure Traumatic mechanical fall: right knee effusion with possible hemarthrosis RIYA ATN sprained right knee PAFIB: maintaining SR Anemia Lupus Membranous nephropathy Proteinuria Azotemia Deconditioning Pain Weakness Plan PT OT Home meds DVT prophylaxis Full code PMR consulted and following regarding "recent fall and sprained right knee, superimposed on degenerative joint disease of her knees with hemarthrosis in right knee"--> "Await mri scan of right knee and to consider aspiration and steroid injection when medically stable,if no fracture" Nephrology consulted and following Cardiology consulted and following GI consulted and following regarding anemia and elevated BUN Appreciate specialists input Trend labs Trend hgb Comment Review of Relevant I have reviewed the following items gregorio (where applicable) has been applied. Medications: Current Medications Medications (Trade) Dose Ordered Sig/Blaine Route PRN Reason Start Time Stop Time Status Last Admin Dose Admin Darbepoetin Emmanuel ([facility]ESP for [facility]) 60 mcg WEEKLYHS SQ 09/11/19 21:00 09/11/19 20:47 Diclofenac Sodium (Voltaren) 1 del BID TP 09/11/19 12:00 09/12/19 08:39 Multi-Ingredient Ointment (Hydrocerin Cream) 1 del BID TP 09/11/19 21:00 09/12/19 08:40 Labetalol HCl (Trandate) 200 mg BID PO 09/11/19 21:00 09/12/19 08:38 Polyethylene Glycol (miraLAX PACKET) 17 gm DAILY PO 09/12/19 10:00 09/12/19 10:02 ADAIR SOLARES III DO Sep 12, 2019 12:01
--- NOTE | 2019-09-12 13:54 | PDOC2 ---
GI CONSULT Reason For Consult: Anemia and elevated BUN HPI: HPI: 59 y/o female admitted w/ right knee injury after fall, awaiting MRI today. GI asked to see for anemia and elevated BUN, both of which are chronic. Anemic on labs here back to 2013, average Hgb is in 7s. H/o CKD - chronically elevated BUN - this time actually lower. Iron studies c/w ACD. Says she might start dialysis. Denies heartburn but says she was told she had acid reflux. No dysphagia, n/v, abd pain, diarrhea, constipation, hematemesis, melena, or hematochezia. Had EGD and colonoscopy w/ Dr. Ortiz at [facility] in 02/2019 - says she was told to come back in 3 months because he was worried about a polyp. ?previously on PPI - says no longer taking. H/o A Fib on Xarelto. Takes Tramadol for pain. PMH: PMH: A Fib, HTN, HLD, COPD, PE, GERD, anxiety, SLE, OA, CKD, thyroid nodules heart cath FH: Family History: No pertinent hx Social History: Smoke: Quit ALCOHOL: none Drugs: None ROS: GEN: Denies fevers, chills, sweats HEENT: Denies blurred vision, sore throat CV: Denies chest pain RESP: Denies shortness of air, cough GI: Per HPI : Denies hematuria, dysuria ENDO: Denies weight changes NEURO: Denies confusion, dizziness MSK: +knee pain SKIN: Denies jaundice, pruritus Vitals: Vitals: Vital Signs Date Time Temp Pulse Resp B/P (MAP) Pulse Ox O2 Delivery O2 Flow Rate FiO2 09/12/19 11:10 97.8 74 14 171/90 (117) 100 Nasal Cannula 2.0 97.8 Labs: Labs: Laboratory Tests Test 09/12/19 03:40 09/12/19 04:20 Sodium Level 146 mmol/L (136-145) Potassium Level 4.3 mmol/L (3.5-5.1) Chloride Level 111 mmol/L (98-107) Carbon Dioxide Level 26 mmol/L (21-32) Anion Gap 9 (6-14) Blood Urea Nitrogen 55 mg/dL (7-20) Creatinine 3.3 mg/dL (0.6-1.0) Estimated GFR (Cockcroft-Gault) 17.3 Glucose Level 87 mg/dL (70-99) Calcium Level 8.5 mg/dL (8.5-10.1) Phosphorus Level 4.4 mg/dL (2.6-4.7) Magnesium Level 2.0 mg/dL (1.8-2.4) Iron Level 28 ug/dL (50-170) Total Iron Binding Capacity 126 ug/dL (250-450) Iron Saturation 22 % (15-34) White Blood Count 4.2 x10^3/uL (4.0-11.0) Red Blood Count 2.98 x10^6/uL (3.50-5.40) Hemoglobin 8.5 g/dL (12.0-15.5) Hematocrit 27.0 % (36.0-47.0) Mean Corpuscular Volume 91 fL (79-100) Mean Corpuscular Hemoglobin 29 pg (25-35) Mean Corpuscular Hemoglobin Concent 32 g/dL (31-37) Red Cell Distribution Width 18.0 % (11.5-14.5) Platelet Count 133 x10^3/uL (140-400) Allergies: Coded Allergies: No Known Drug Allergies (Unverified , 05/23/14) Medications: Current Medications Medications (Trade) Dose Ordered Sig/Blaine Route PRN Reason Start Time Stop Time Status Last Admin Dose Admin Darbepoetin Emmanuel (ARANESP for DIALYSIS PTS) 60 mcg WEEKLYHS SQ 09/11/19 21:00 09/11/19 20:47 Multi-Ingredient Ointment (Hydrocerin Cream) 1 del BID TP 09/11/19 21:00 09/12/19 08:40 Labetalol HCl (Trandate) 200 mg BID PO 09/11/19 21:00 09/12/19 08:38 Polyethylene Glycol (miraLAX PACKET) 17 gm DAILY PO 09/12/19 10:00 09/12/19 10:02 Imaging: Imaging: Head/C-spine CT IMPRESSION: No acute intracranial findings. IMPRESSION: 1. No acute fracture of the cervical spine. Correlate clinically. 2. Moderate degenerative changes cervical spine. 3. 1 cm hypodensity identified in the right lobe of thyroid gland. Recommend nonemergent ultrasound thyroid. LE Duplex IMPRESSION: No evidence of hemodynamically significant stenosis. CXR IMPRESSION: 1. Stable diffuse increased interstitial opacity due to interstitial infiltrate or chronic interstitial changes. 2. Stable cardiomegaly. Knee X-Ray IMPRESSION: 1. Large suprapatellar joint effusion. 2. No definite acute fracture or osseous abnormality, though there is a peculiar divot-like deformity of the articular surface of the patella thatcould reflect an acute bone contusion or sequela of acute or recurrent trauma. Consider further evaluation with MRI to assess for internal derangement. PE: GEN: NAD HEENT: Atraumatic, PERRL LUNGS: CTAB HEART: RRR +murm ABD: NABS, S/ND/NT EXTREMITY: right knee swollen and tender SKIN: No rashes, no jaundice NEURO/PSYCH: A & O 3 A/P: A/P: Right knee effusion after fall CHF, elevated troponin, RIYA/CKD H/o A Fib on Xarelto - held ACD ?GERD CRC screen - 02/2019, told to return in 3 months -- Await workup for knee issue. Will attempt to get records from 'scopes last summer w/ Dr. Ortiz. Pt interested in transitioning GI care to this hospital. Resume PPI, monitor labs. JAVON BLANCO Sep 12, 2019 13:54
[2019-09-12] MEDS: FUROSEMIDE 40 MG TABLET. PO SCH (13:55)
[2019-09-12] MEDS: hydrALAZINE 20 MG/ML VIAL. IVP PRN (16:18)
[2019-09-12] MEDS: PANTOPRAZOLE 40 MG TABLET.DR. PO SCH (16:24)
[2019-09-13 03:21] VITALS: BP 198/91
[2019-09-13] MEDS: hydrALAZINE 20 MG/ML VIAL. IVP PRN ×2 (03:29→08:33)
[2019-09-13 04:43] LABS: BASO % 0 % (0-3); EOS # 0.1 x10^3/uL (0.0-0.7); EOS % 3 % (0-3); HEMATOCRIT 26.2 % (36.0-47.0); HEMOGLOBIN 8.3 g/dL (12.0-15.5); LYMPH % 21 % (24-48); MEAN CORPUSCULAR HEMOGLOBIN 29 pg (25-35); MEAN CORPUSCULAR HGB CONC 32 g/dL (31-37); MEAN CORPUSCULAR VOLUME 91 fL (79-100); MONO # 0.5 x10^3/uL (0.0-1.1); MONO % 11 % (0-9); NEUT # 2.9 x10^3/uL (1.8-7.7); NEUT % 65 % (31-73); PLATELET COUNT 137 x10^3/uL (140-400); RED BLOOD COUNT 2.87 x10^6/uL (3.50-5.40); RED CELL DISTRIBUTION WIDTH 17.8 % (11.5-14.5); WHITE BLOOD COUNT 4.5 x10^3/uL (4.0-11.0)
[2019-09-13 04:59] LABS: CALCIUM 8.4 mg/dL (8.5-10.1); CREATININE 3.3 mg/dL (0.6-1.0); GFR 17.3; POTASSIUM 4.7 mmol/L (3.5-5.1)
[2019-09-13 05:08] LABS: CALCIUM 8.2 mg/dL (8.5-10.1); CREATININE 3.3 mg/dL (0.6-1.0); GFR 17.3; PHOSPHORUS 4.2 mg/dL (2.6-4.7); POTASSIUM 4.9 mmol/L (3.5-5.1)
[2019-09-13 06:49] VITALS: BP 172/94
[2019-09-13] MEDS: MINERAL OIL/PETROLATUM TOPICAL CREAM 113GM JAR. TP SCH ×2 (08:33→20:26)
[2019-09-13] MEDS: DICLOFENAC SODIUM 1% TOPICAL GEL 100GM TUBE. TP SCH ×2 (08:33→20:27)
[2019-09-13 09:27] LABS: PROTHROMBIN TIME PATIENT 15.2 SEC (11.7-14.0)
[2019-09-13 10:19] VITALS: BP 172/79
--- NOTE | 2019-09-13 11:02 | PDOC ---
[employer] PROGRESS NOTE Chief Complaint Chief Complaint Acute on chronic systolic and diastolic heart failure Traumatic mechanical fall: right knee effusion with possible hemarthrosis RIYA ATN sprained right knee PAFIB: maintaining SR Anemia Lupus Membranous nephropathy Proteinuria Azotemia Deconditioning Pain Weakness History of Present Illness History of Present Illness [id number] Patient seen and examined She is going for dialysis catheter placement today We'll start hemodialysis later today Discussed with RN Discussed with case management Chart reviewed 09/12/19 Pt seen and examined. Pt was resting in NAD during meeting and awoke for examination. Pt was pleasant and conversant. Pt denies f/c/n/v. Pt claims to feel weaker and more lethargic than normal DW nurse regarding anemia. Pt's chart reviewed. Vitals/I&O Vitals/I&O: Vital Signs Date Time Temp Pulse Resp B/P (MAP) Pulse Ox O2 Delivery O2 Flow Rate FiO2 09/13/19 10:19 97.9 78 16 172/79 (110) 100 Nasal Cannula 2.0 97.9 I & O 0 09/12/19 09/12/19 09/13/19 15:00 23:00 07:00 Intake Total 320 ml 390 ml Output Total 450 ml Balance 320 ml -60 ml Physical Exam General: Alert, Oriented X3, Cooperative, No acute distress Heart: Regular rate (SR), Normal S1, Normal S2, Other (4/6 systolic murmur to LLS border; S4) Lungs: Other Abdomen: Soft, No tenderness Extremities: No cyanosis, Other (2-3+ bilateral LE pitting edema) Skin: No breakdown, No significant lesion Labs Labs: Laboratory Tests Test 09/13/19 03:30 09/13/19 08:40 White Blood Count 4.5 x10^3/uL (4.0-11.0) Red Blood Count 2.87 x10^6/uL (3.50-5.40) Hemoglobin 8.3 g/dL (12.0-15.5) Hematocrit 26.2 % (36.0-47.0) Mean Corpuscular Volume 91 fL (79-100) Mean Corpuscular Hemoglobin 29 pg (25-35) Mean Corpuscular Hemoglobin Concent 32 g/dL (31-37) Red Cell Distribution Width 17.8 % (11.5-14.5) Platelet Count 137 x10^3/uL (140-400) Neutrophils (%) (Auto) 65 % (31-73) Lymphocytes (%) (Auto) 21 % (24-48) Monocytes (%) (Auto) 11 % (0-9) Eosinophils (%) (Auto) 3 % (0-3) Basophils (%) (Auto) 0 % (0-3) Neutrophils # (Auto) 2.9 x10^3/uL (1.8-7.7) Lymphocytes # (Auto) 1.0 x10^3/uL (1.0-4.8) Monocytes # (Auto) 0.5 x10^3/uL (0.0-1.1) Eosinophils # (Auto) 0.1 x10^3/uL (0.0-0.7) Basophils # (Auto) 0.0 x10^3/uL (0.0-0.2) Sodium Level 145 mmol/L (136-145) Potassium Level 4.7 mmol/L (3.5-5.1) Chloride Level 110 mmol/L (98-107) Carbon Dioxide Level 28 mmol/L (21-32) Anion Gap 7 (6-14) Blood Urea Nitrogen 55 mg/dL (7-20) Creatinine 3.3 mg/dL (0.6-1.0) Estimated GFR (Cockcroft-Gault) 17.3 Glucose Level 96 mg/dL (70-99) Calcium Level 8.4 mg/dL (8.5-10.1) Phosphorus Level 4.2 mg/dL (2.6-4.7) Albumin 2.0 g/dL (3.4-5.0) Prothrombin Time 15.2 SEC (11.7-14.0) Prothromb Time International Ratio 1.2 (0.8-1.1) Activated Partial Thromboplast Time 30 SEC (24-38) Review of Systems Review of Systems: Complains of weakness complains of depression Assessment and Plan Assessmemt and Plan Problems Medical Problems: (1) Accelerated hypertension Status: Acute (2) CKD (chronic kidney disease) Status: Acute (3) Fall Status: Acute (4) Hypothermia Status: Acute Acute on chronic systolic and diastolic heart failure Traumatic mechanical fall: right knee effusion with possible hemarthrosis RIYA ATN (we are going forward with starting dialysis today) sprained right knee PAFIB: maintaining SR Anemia Lupus Membranous nephropathy Proteinuria Azotemia Deconditioning Pain Weakness Plan Going for hemodialysis catheter here this morning Start dialysis later today Suspect she will need 2 or 3 treatments before she can go home and then she may need to continue with dialysis for several months if not indefinitely? Appreciate subspecialist input Continue other treatments Home meds DVT prophylaxis Full code Trend labs Long-term prognosis guarded Comment Review of Relevant I have reviewed the following items gregorio (where applicable) has been applied. Medications: Current Medications Medications (Trade) Dose Ordered Sig/Blaine Route PRN Reason Start Time Stop Time Status Last Admin Dose Admin Furosemide (Lasix) 40 mg DAILY PO 09/12/19 12:30 09/12/19 13:55 Pantoprazole Sodium (Protonix) 40 mg DAILYAC PO 09/12/19 15:00 09/12/19 16:24 ADAIR SOLARES III DO Sep 13, 2019 11:02
--- NOTE | 2019-09-13 11:12 | PDOC ---
Subjective: Subjective: Not feeling well - headache and nausea. Objective: Objective: D/w nurse - to have cath placement and dialysis today, has been hypertensive. Vital Signs: Vital Signs Date Time Temp Pulse Resp B/P (MAP) Pulse Ox O2 Delivery O2 Flow Rate FiO2 09/13/19 10:19 97.9 78 16 172/79 (110) 100 Nasal Cannula 2.0 97.9 Labs: Laboratory Tests Test 09/13/19 03:30 09/13/19 08:40 White Blood Count 4.5 x10^3/uL Red Blood Count 2.87 x10^6/uL Hemoglobin 8.3 g/dL Hematocrit 26.2 % Mean Corpuscular Volume 91 fL Mean Corpuscular Hemoglobin 29 pg Mean Corpuscular Hemoglobin Concent 32 g/dL Red Cell Distribution Width 17.8 % Platelet Count 137 x10^3/uL Neutrophils (%) (Auto) 65 % Lymphocytes (%) (Auto) 21 % Monocytes (%) (Auto) 11 % Eosinophils (%) (Auto) 3 % Basophils (%) (Auto) 0 % Neutrophils # (Auto) 2.9 x10^3/uL Lymphocytes # (Auto) 1.0 x10^3/uL Monocytes # (Auto) 0.5 x10^3/uL Eosinophils # (Auto) 0.1 x10^3/uL Basophils # (Auto) 0.0 x10^3/uL Sodium Level 145 mmol/L Potassium Level 4.7 mmol/L Chloride Level 110 mmol/L Carbon Dioxide Level 28 mmol/L Anion Gap 7 Blood Urea Nitrogen 55 mg/dL Creatinine 3.3 mg/dL Estimated GFR (Cockcroft-Gault) 17.3 Glucose Level 96 mg/dL Calcium Level 8.4 mg/dL Phosphorus Level 4.2 mg/dL Albumin 2.0 g/dL Prothrombin Time 15.2 SEC Prothromb Time International Ratio 1.2 Activated Partial Thromboplast Time 30 SEC PE: GEN: NAD - looks ill, up in chair w/ eyes closed LUNGS: CTAB HEART: RRR ABD: S/ND/NT EXTREM: right knee elevated w/ brace NEURO/PSYCH: A & O 3 A/P: Fall, right knee effusion - MRI not done yesterday CKD, HTN ACD - stable GERD - previous 'scopes w/ Dr. Ortiz, no records received -- Nausea probably multi-factorial. Dialysis plans as above. MRI today? Continue PPI - can change to IV if indicated. Await records, consider outpt [facility]scopes at [facility]. Hemodynamically unstable?: No Is patient in severe pain?: Yes Is NPO status required?: No JAVON BLANCO Sep 13, 2019 11:12
[2019-09-13] MEDS ORDERED: LIDOCAINE 1%/EPI 1:100,000 20 ML VIAL. ONE (12:12)
[2019-09-13] MEDS ORDERED: ceFAZolin SODIUM IV Push 1 GM VIAL. IVP ONE ×3 (12:32→14:15)
[2019-09-13] MEDS ORDERED: MIDAZOLAM HCL/PF 2 MG/2 ML VIAL. ONE (12:36)
[2019-09-13] MEDS ORDERED: fentaNYL PF VIAL 100 MCG/2 ML VIAL ONE (12:36)
--- NOTE | 2019-09-13 12:53 | PDOC ---
PROGRESS NOTES Subjective Subjective She c/o headache. Objective Objective Vital Signs Date Time Temp Pulse Resp B/P (MAP) Pulse Ox O2 Delivery O2 Flow Rate FiO2 09/13/19 10:19 97.9 78 16 172/79 (110) 100 Nasal Cannula 2.0 97.9 Intake and Output 09/13/19 07:00 Intake Total 710 ml Output Total 450 ml Balance 260 ml Intake Oral 710 ml Output Urine Total 450 ml Physical Exam Physical Exam She is alert,sitting in bedside chair with right knee immobilizer on and she transferred without any significant knee pain as per physical therapy. Assessment Assessment Problems Medical Problems: (1) Accelerated hypertension Status: Acute (2) CKD (chronic kidney disease) Status: Acute (3) Fall Status: Acute (4) Hypothermia Status: Acute Plan Plan of Care Waiting for mri scan of right knee,to rule out any fracture,before considering aspirating and steroid injection to her right knee joint. Comment Review of Relevant I have reviewed the following items gregorio (where applicable) has been applied. Labs Laboratory Tests Test 09/12/19 03:40 09/12/19 04:20 09/13/19 03:30 09/13/19 08:40 Sodium Level 146 mmol/L (136-145) 145 mmol/L (136-145) Potassium Level 4.3 mmol/L (3.5-5.1) 4.7 mmol/L (3.5-5.1) Chloride Level 111 mmol/L (98-107) 110 mmol/L (98-107) Carbon Dioxide Level 26 mmol/L (21-32) 28 mmol/L (21-32) Anion Gap 9 (6-14) 7 (6-14) Blood Urea Nitrogen 55 mg/dL (7-20) 55 mg/dL (7-20) Creatinine 3.3 mg/dL (0.6-1.0) 3.3 mg/dL (0.6-1.0) Estimated GFR (Cockcroft-Gault) 17.3 17.3 Glucose Level 87 mg/dL (70-99) 96 mg/dL (70-99) Calcium Level 8.5 mg/dL (8.5-10.1) 8.4 mg/dL (8.5-10.1) Phosphorus Level 4.4 mg/dL (2.6-4.7) 4.2 mg/dL (2.6-4.7) Magnesium Level 2.0 mg/dL (1.8-2.4) Iron Level 28 ug/dL (50-170) Total Iron Binding Capacity 126 ug/dL (250-450) Iron Saturation 22 % (15-34) White Blood Count 4.2 x10^3/uL (4.0-11.0) 4.5 x10^3/uL (4.0-11.0) Red Blood Count 2.98 x10^6/uL (3.50-5.40) 2.87 x10^6/uL (3.50-5.40) Hemoglobin 8.5 g/dL (12.0-15.5) 8.3 g/dL (12.0-15.5) Hematocrit 27.0 % (36.0-47.0) 26.2 % (36.0-47.0) Mean Corpuscular Volume 91 fL (79-100) 91 fL (79-100) Mean Corpuscular Hemoglobin 29 pg (25-35) 29 pg (25-35) Mean Corpuscular Hemoglobin Concent 32 g/dL (31-37) 32 g/dL (31-37) Red Cell Distribution Width 18.0 % (11.5-14.5) 17.8 % (11.5-14.5) Platelet Count 133 x10^3/uL (140-400) 137 x10^3/uL (140-400) Neutrophils (%) (Auto) 65 % (31-73) Lymphocytes (%) (Auto) 21 % (24-48) Monocytes (%) (Auto) 11 % (0-9) Eosinophils (%) (Auto) 3 % (0-3) Basophils (%) (Auto) 0 % (0-3) Neutrophils # (Auto) 2.9 x10^3/uL (1.8-7.7) Lymphocytes # (Auto) 1.0 x10^3/uL (1.0-4.8) Monocytes # (Auto) 0.5 x10^3/uL (0.0-1.1) Eosinophils # (Auto) 0.1 x10^3/uL (0.0-0.7) Basophils # (Auto) 0.0 x10^3/uL (0.0-0.2) Albumin 2.0 g/dL (3.4-5.0) Hepatitis B Surface Antigen Nonreactive (Nonreactive) Hepatitis B Surface Antibody Nonreactive Prothrombin Time 15.2 SEC (11.7-14.0) Prothromb Time International Ratio 1.2 (0.8-1.1) Activated Partial Thromboplast Time 30 SEC (24-38) Laboratory Tests Test 09/13/19 03:30 09/13/19 08:40 White Blood Count 4.5 x10^3/uL (4.0-11.0) Red Blood Count 2.87 x10^6/uL (3.50-5.40) Hemoglobin 8.3 g/dL (12.0-15.5) Hematocrit 26.2 % (36.0-47.0) Mean Corpuscular Volume 91 fL (79-100) Mean Corpuscular Hemoglobin 29 pg (25-35) Mean Corpuscular Hemoglobin Concent 32 g/dL (31-37) Red Cell Distribution Width 17.8 % (11.5-14.5) Platelet Count 137 x10^3/uL (140-400) Neutrophils (%) (Auto) 65 % (31-73) Lymphocytes (%) (Auto) 21 % (24-48) Monocytes (%) (Auto) 11 % (0-9) Eosinophils (%) (Auto) 3 % (0-3) Basophils (%) (Auto) 0 % (0-3) Neutrophils # (Auto) 2.9 x10^3/uL (1.8-7.7) Lymphocytes # (Auto) 1.0 x10^3/uL (1.0-4.8) Monocytes # (Auto) 0.5 x10^3/uL (0.0-1.1) Eosinophils # (Auto) 0.1 x10^3/uL (0.0-0.7) Basophils # (Auto) 0.0 x10^3/uL (0.0-0.2) Sodium Level 145 mmol/L (136-145) Potassium Level 4.7 mmol/L (3.5-5.1) Chloride Level 110 mmol/L (98-107) Carbon Dioxide Level 28 mmol/L (21-32) Anion Gap 7 (6-14) Blood Urea Nitrogen 55 mg/dL (7-20) Creatinine 3.3 mg/dL (0.6-1.0) Estimated GFR (Cockcroft-Gault) 17.3 Glucose Level 96 mg/dL (70-99) Calcium Level 8.4 mg/dL (8.5-10.1) Phosphorus Level 4.2 mg/dL (2.6-4.7) Albumin 2.0 g/dL (3.4-5.0) Hepatitis B Surface Antigen Nonreactive (Nonreactive) Hepatitis B Surface Antibody Nonreactive Prothrombin Time 15.2 SEC (11.7-14.0) Prothromb Time International Ratio 1.2 (0.8-1.1) Activated Partial Thromboplast Time 30 SEC (24-38) Medications Current Medications Labetalol HCl (Normodyne Iv Push) 10 mg 1X ONCE IVP Last administered on 09/10/19at 21:38; Start 09/10/19 at 21:30; Stop 09/10/19 at 21:31; Status DC Dextrose (Dextrose 50%-Water Syringe) 25 gm STK-MED ONCE IV ; Start 09/10/19 at 21:37; Stop 09/10/19 at 21:37; Status DC Dextrose (Dextrose 50%-Water Syringe) 25 gm 1X ONCE IV Last administered on 09/10/19at 21:44; Start 09/10/19 at 21:45; Stop 09/10/19 at 21:46; Status DC Sodium Chloride 1,000 ml @ 1,000 mls/hr Q1H IV Last administered on 09/10/19at 22:40; Start 09/10/19 at 22:15; Stop 09/10/19 at 23:14; Status DC Labetalol HCl (Normodyne Iv Push) 10 mg 1X ONCE IVP ; Start 09/10/19 at 23:45; Stop 09/10/19 at 23:46; Status UNV Heparin Sodium/ Dextrose 250 ml @ 0 mls/hr CONT PRN IV PER PROTOCOL Last administered on 09/11/19at 00:14; Start 09/10/19 at 23:45; Stop 09/11/19 at 10:46; Status DC Heparin Sodium (Porcine) (Heparin Sodium) 1,600 unit PRN Q6HRS PRN IV FOR UFH LEVEL LESS THAN 0.2; Start 09/10/19 at 23:45; Stop 09/11/19 at 16:30; Status DC Ondansetron HCl (Zofran) 4 mg PRN Q8HRS PRN IV NAUSEA/VOMITING; Start 09/10/19 at 23:45; Stop 09/11/19 at 23:44; Status DC Acetaminophen (Tylenol) 650 mg PRN Q4HRS PRN PO FEVER; Start 09/10/19 at 23:45; Stop 09/11/19 at 23:44; Status DC Nitroglycerin (Nitrostat) 0.4 mg PRN Q5MIN PRN SL CHEST PAIN; Start 09/10/19 at 23:45; Stop 09/11/19 at 23:44; Status DC Calcium Gluconate (Calcium Gluconate) 1,000 mg 1X ONCE IVP Last administered on 09/10/19at 23:59; Start 09/10/19 at 23:45; Stop 09/10/19 at 23:46; Status DC Dextrose (Dextrose 50%-Water Syringe) 25 gm 1X ONCE IV Last administered on 09/10/19at 23:57; Start 09/10/19 at 23:45; Stop 09/10/19 at 23:46; Status DC Insulin Human Regular (HumuLIN R VIAL) 10 unit 1X ONCE IV Last administered on 09/11/19at 00:16; Start 09/10/19 at 23:45; Stop 09/10/19 at 23:46; Status DC Labetalol HCl (Normodyne Iv Push) 10 mg 1X ONCE IVP Last administered on 09/10/19at 22:30; Start 09/10/19 at 23:45; Stop 09/10/19 at 23:46; Status DC Hydralazine HCl (Apresoline Inj) 10 mg Q4HRS PRN IVP ELEVATED BP, SEE COMMENTS Last administered on 09/13/19at 08:33; Start 09/11/19 at 00:00; Stop 09/13/19 at 08:55; Status DC Info (Anti-Coagulation Monitoring By Pharmacy) 1 each PRN DAILY PRN MC SEE COMMENTS; Start 09/11/19 at 08:15; Stop 09/11/19 at 16:30; Status DC Furosemide (Lasix) 40 mg 1X ONCE IVP ; Start 09/11/19 at 11:30; Stop 09/11/19 at 11:31; Status Cancel Darbepoetin Emmanuel (ARANESP for DIALYSIS PTS) 60 mcg WEEKLYHS SQ Last administered on 09/11/19at 20:47; Start 09/11/19 at 21:00 Furosemide (Lasix) 60 mg 1X ONCE IVP Last administered on 09/11/19at 11:18; Start 09/11/19 at 11:00; Stop 09/11/19 at 11:01; Status DC Diclofenac Sodium (Voltaren) 1 del BID TP Last administered on 09/13/19at 08:33; Start 09/11/19 at 12:00 Methylprednisolone Acetate (DEPO-Medrol 40MG VIAL) 40 mg 1X ONCE IM ; Start 09/11/19 at 11:30; Stop 09/11/19 at 11:31; Status DC Bupivacaine HCl (Sensorcaine-Mpf 0.25%) 10 ml 1X ONCE IJ ; Start 09/11/19 at 11:30; Stop 09/11/19 at 11:31; Status DC Multi-Ingredient Ointment (Hydrocerin Cream) 1 del PRN Q1HR PRN TP DRY SKIN / SCALING; Start 09/11/19 at 11:00; Stop 09/11/19 at 11:01; Status DC Multi-Ingredient Ointment (Hydrocerin Cream) 1 del BID TP Last administered on 09/13/19at 08:33; Start 09/11/19 at 21:00 Labetalol HCl (Trandate) 200 mg BID PO Last administered on 09/12/19at 21:33; Start 09/11/19 at 21:00 Polyethylene Glycol (miraLAX PACKET) 17 gm DAILY PO Last administered on 09/12/19at 10:02; Start 09/12/19 at 10:00 Hydralazine HCl (Apresoline Inj) 10 mg PRN Q4HRS PRN IVP ELEVATED BP, SEE COMME NTS; Start 09/12/19 at 12:00 Furosemide (Lasix) 40 mg DAILY PO Last administered on 09/12/19at 13:55; Start 09/12/19 at 12:30 Pantoprazole Sodium (Protonix) 40 mg DAILYAC PO Last administered on 09/12/19at 16:24; Start 09/12/19 at 15:00 Lidocaine/ Epinephrine (LIDOCAINE 1%-EPI 1:100,000 Multi-Dose) 20 ml STK-MED ONCE .ROUTE ; Start 09/13/19 at 12:12; Stop 09/13/19 at 12:12; Status DC Cefazolin Sodium (Ancef) 1 gm STK-MED ONCE IVP ; Start 09/13/19 at 12:32; Stop 09/13/19 at 12:33; Status DC Midazolam HCl (Versed) 2 mg STK-MED ONCE .ROUTE ; Start 09/13/19 at 12:36; Stop 09/13/19 at 12:36; Status DC Fentanyl Citrate (Fentanyl 2ml Vial) 100 mcg STK-MED ONCE .ROUTE ; Start 09/13/19 at 12:36; Stop 09/13/19 at 12:36; Status DC Midazolam HCl (Versed) 2 mg 1X ONCE IV ; Start 09/13/19 at 13:00; Stop 09/13/19 at 13:01 Fentanyl Citrate (Fentanyl 2ml Vial) 100 mcg 1X ONCE IV ; Start 09/13/19 at 13:00; Stop 09/13/19 at 13:01 Lidocaine/ Epinephrine (LIDOCAINE 1%-EPI 1:100,000 Multi-Dose) 20 ml 1X ONCE SQ ; Start 09/13/19 at 13:00; Stop 09/13/19 at 13:01; Status UNV Cefazolin Sodium (Ancef) 1 gm 1X ONCE IVP ; Start 09/13/19 at 13:00; Stop at 13:01; Status UNV Active Scripts Active [Darbepoetin Emmanuel In Polysorbat] 60 MCG/0.3 ML Disp.syrin 60 Mcg SQ WEEKLYHS 30 Days Reported Protonix (Pantoprazole Sodium) 40 Mg Tablet.dr 40 Mg PO DAILYAC Multivitamins (Multivitamin) 1 Each Tablet 1 Tab PO DAILY Symbicort 160-4.5 Mcg Inhaler (Budesonide/Formoterol Fumarate) 10.2 Gm Hfa.aer.ad 1 Puff IH BID Spiriva (Tiotropium [place]) 18 Mcg Cap.w.dev 2 Inh IH DAILY Xarelto (Rivaroxaban) 10 Mg Tablet 10 Mg PO DAILY Phoslo (Calcium Acetate) 667 Mg Capsule 1 Cap PO BIDWMEALS K-Tab ER (Potassium Chloride) 20 Meq Tablet.er 20 Meq PO DAILY Vitals/I & O Vital Sign - Last 24 Hours 109/12/19 09/12/19 09/12/19 15:33 16:18 16:45 19:32 Temp 97.6 98.0 97.6 98.0 Pulse 75 76 80 82 Resp 14 16 B/P (MAP) 192/93 (126) 189/94 152/84 (106) 142/77 (98) Pulse Ox 100 100 O2 Delivery Nasal Cannula Nasal Cannula O2 Flow Rate 2.0 2.0 09/12/19 09/12/19 09/12/19 09/13/19 20:00 21:33 23:27 03:21 Temp 98.2 98.6 98.2 98.6 Pulse 82 86 90 Resp 18 16 B/P (MAP) 142/77 155/91 (112) 198/91 (126) Pulse Ox 100 96 O2 Delivery Nasal Cannula Nasal Cannula Room Air O2 Flow Rate 2.0 2.0 09/13/19 09/13/19 09/13/19 09/13/19 03:29 06:49 08:00 08:33 Temp 98.0 98.0 Pulse 90 81 81 Resp 16 B/P (MAP) 198/91 172/94 (120) 172/94 Pulse Ox 100 O2 Delivery Nasal Cannula Room Air O2 Flow Rate 2.0 2.0 09/13/19 10:19 Temp 97.9 97.9 Pulse 78 Resp 16 B/P (MAP) 172/79 (110) Pulse Ox 100 O2 Delivery Nasal Cannula O2 Flow Rate 2.0 Intake and Output 09/12/19 09/12/19 09/13/19 15:00 23:00 07:00 Intake Total 320 ml 390 ml Output Total 450 ml Balance 320 ml -60 ml Hemodynamically unstable?: No Is patient in severe pain?: Yes Is NPO status required?: No FAITH ADDISON MD Sep 13, 2019 12:53
[2019-09-13] MEDS ORDERED: MIDAZOLAM HCL/PF 2 MG/2 ML VIAL. IV ONE ×2 (13:00→14:15)
[2019-09-13] MEDS ORDERED: LIDOCAINE 1%/EPI 1:100,000 20 ML VIAL. SQ ONE (13:00)
[2019-09-13] MEDS ORDERED: fentaNYL PF VIAL 100 MCG/2 ML VIAL IV ONE ×2 (13:00→14:15)
[2019-09-13 13:02] VITALS: BP 198/98
--- NOTE | 2019-09-13 13:09 | PDOC ---
SUBJECTIVE ROS Stable , Initiate HD today OBJECTIVE Vital Signs Vital Signs Date Time Temp Pulse Resp B/P (MAP) Pulse Ox O2 Delivery O2 Flow Rate FiO2 09/13/19 12:52 16 100 Nasal Cannula 2.0 09/13/19 10:19 97.9 78 172/79 (110) 97.9 I & 0 Intake and Output 09/13/19 07:00 Intake Total 710 ml Output Total 450 ml Balance 260 ml Intake Oral 710 ml Output Urine Total 450 ml PHYSICAL EXAM Physical Exam General: No acute distress HEENT: On 02 by NC , 100% O2 sats Neck Supple Lungs: Clear to auscultation, Non labored Heart: Regular rate, Normal S1, Normal S2, systolic murmur + Abdomen: Soft, No tenderness Extremities: LE edema 2-3 + Skin: No rash Neuro: Grossly normal Psych/Mental Status: Mental status NL, Mood NL Reid + DIAGNOSIS/ASSESSMENT Assessment & Plan New Onset ESRD Urinary retention +, has a reid placed ,Hospitalized last year x 2 , Significant recurrent edema Initiate HD today, Access Tunneled HDC placed , seen on HD, tolerating well, UF 1-2Lts as tolerated, 2 nd treatment planned for tomorrow, Tomy GUZMÁN for OP Chair time CKD stage 4 - has been following with us HyperNa - resolved Urinary retention- 300+ this am Reid inplace now, Monitor CHF-prob Diastolic Requd IV lasix Drip at last hospitalizations, currently asymptomatic, Atrial fibrillation. s/p cardiac Cath 06/07, Normal Membranous Nephropathy Dx in post Bx Proteinuria at Dx was 8 gm, improved most recent Pr/Cr <200 holding due to worsening renal function SLE- Use to follow with Rheumatology (Dr Hill) ,was on Imuran Currently only on Hydroxychloroquine Not seen for long time due to the financial constraints HTN- antihypertensives Renal Doppler - No Doppler evidence of greater than 60% stenosis within the renal arteries. Anemia-Follows with Dr. Baez as OP, On [facility] COMMENT/RELEVANT DATA Meds Current Medications Medications (Trade) Dose Ordered Sig/Blaine Start Time Stop Time Status Last Admin Dose Admin Acetaminophen (Tylenol) 650 mg PRN Q4HRS PRN 09/10/19 23:45 09/11/19 23:44 DC Bupivacaine HCl (Sensorcaine-Mpf 0.25%) 10 ml 1X ONCE 09/11/19 11:30 09/11/19 11:31 DC Calcium Gluconate (Calcium Gluconate) 1,000 mg 1X ONCE 09/10/19 23:45 09/10/19 23:46 DC 09/10/19 23:59 1,000 MG Cefazolin Sodium (Ancef) 1 gm 1X ONCE 09/13/19 13:00 09/13/19 13:01 09/13/19 12:51 1 GM Darbepoetin Emmanuel (ARANESP for DIALYSIS PTS) 60 mcg WEEKLYHS 09/11/19 21:00 09/11/19 20:47 60 MCG Dextrose (Dextrose 50%-Water Syringe) 25 gm 1X ONCE 09/10/19 23:45 09/10/19 23:46 DC 09/10/19 23:57 25 GM Diclofenac Sodium (Voltaren) 1 del BID 09/11/19 12:00 09/13/19 08:33 1 DEL Fentanyl Citrate (Fentanyl 2ml Vial) 100 mcg 1X ONCE 09/13/19 13:00 09/13/19 13:01 09/13/19 12:52 50 MCG Furosemide (Lasix) 40 mg DAILY 09/12/19 12:30 09/12/19 13:55 40 MG Heparin Sodium (Porcine) (Heparin Sodium) 1,600 unit PRN Q6HRS PRN 09/10/19 23:45 09/11/19 16:30 DC Heparin Sodium/ Dextrose 250 ml @ 0 mls/hr CONT PRN 09/10/19 23:45 09/11/19 10:46 DC 09/11/19 00:14 7.56 MLS/HR Hydralazine HCl (Apresoline Inj) 10 mg PRN Q4HRS PRN 09/12/19 12:00 Info (Anti-Coagulation Monitoring By Pharmacy) 1 each PRN DAILY PRN 09/11/19 08:15 09/11/19 16:30 DC Insulin Human Regular (HumuLIN R VIAL) 10 unit 1X ONCE 09/10/19 23:45 09/10/19 23:46 DC 09/11/19 00:16 10 UNIT Labetalol HCl (Normodyne Iv Push) 10 mg 1X ONCE 09/10/19 23:45 09/10/19 23:46 DC 09/10/19 22:30 10 MG Labetalol HCl (Trandate) 200 mg BID 09/11/19 21:00 09/12/19 21:33 200 MG Lidocaine/ Epinephrine (LIDOCAINE 1%-EPI 1:100,000 Multi-Dose) 20 ml 1X ONCE 09/13/19 13:00 09/13/19 13:01 09/13/19 12:51 12 ML Methylprednisolone Acetate (DEPO-Medrol 40MG VIAL) 40 mg 1X ONCE 09/11/19 11:30 09/11/19 11:31 DC Midazolam HCl (Versed) 2 mg 1X ONCE 09/13/19 13:00 09/13/19 13:01 09/13/19 12:51 1 MG Multi-Ingredient Ointment (Hydrocerin Cream) 1 del BID 09/11/19 21:00 09/13/19 08:33 1 DEL Nitroglycerin (Nitrostat) 0.4 mg PRN Q5MIN PRN 09/10/19 23:45 09/11/19 23:44 DC Ondansetron HCl (Zofran) 4 mg PRN Q8HRS PRN 09/10/19 23:45 09/11/19 23:44 DC Pantoprazole Sodium (Protonix) 40 mg DAILYAC 09/12/19 15:00 09/12/19 16:24 40 MG Polyethylene Glycol (miraLAX PACKET) 17 gm DAILY 09/12/19 10:00 09/12/19 10:02 17 GM Sodium Chloride 1,000 ml @ 1,000 mls/hr Q1H 09/10/19 22:15 09/10/19 23:14 DC 09/10/19 22:40 1,000 MLS/HR Lab Laboratory Tests Test 09/13/19 03:30 09/13/19 08:40 White Blood Count 4.5 x10^3/uL (4.0-11.0) Red Blood Count 2.87 x10^6/uL (3.50-5.40) Hemoglobin 8.3 g/dL (12.0-15.5) Hematocrit 26.2 % (36.0-47.0) Mean Corpuscular Volume 91 fL (79-100) Mean Corpuscular Hemoglobin 29 pg (25-35) Mean Corpuscular Hemoglobin Concent 32 g/dL (31-37) Red Cell Distribution Width 17.8 % (11.5-14.5) Platelet Count 137 x10^3/uL (140-400) Neutrophils (%) (Auto) 65 % (31-73) Lymphocytes (%) (Auto) 21 % (24-48) Monocytes (%) (Auto) 11 % (0-9) Eosinophils (%) (Auto) 3 % (0-3) Basophils (%) (Auto) 0 % (0-3) Neutrophils # (Auto) 2.9 x10^3/uL (1.8-7.7) Lymphocytes # (Auto) 1.0 x10^3/uL (1.0-4.8) Monocytes # (Auto) 0.5 x10^3/uL (0.0-1.1) Eosinophils # (Auto) 0.1 x10^3/uL (0.0-0.7) Basophils # (Auto) 0.0 x10^3/uL (0.0-0.2) Sodium Level 145 mmol/L (136-145) Potassium Level 4.7 mmol/L (3.5-5.1) Chloride Level 110 mmol/L (98-107) Carbon Dioxide Level 28 mmol/L (21-32) Anion Gap 7 (6-14) Blood Urea Nitrogen 55 mg/dL (7-20) Creatinine 3.3 mg/dL (0.6-1.0) Estimated GFR (Cockcroft-Gault) 17.3 Glucose Level 96 mg/dL (70-99) Calcium Level 8.4 mg/dL (8.5-10.1) Phosphorus Level 4.2 mg/dL (2.6-4.7) Albumin 2.0 g/dL (3.4-5.0) Hepatitis B Surface Antigen Nonreactive (Nonreactive) Hepatitis B Surface Antibody Nonreactive Prothrombin Time 15.2 SEC (11.7-14.0) Prothromb Time International Ratio 1.2 (0.8-1.1) Activated Partial Thromboplast Time 30 SEC (24-38) Results All relevant outside records, renal labs, imaging studies, telemetry/EKG's were reviewed. SHEILA CREWS MD Sep 13, 2019 13:09
--- NOTE | 2019-09-13 13:13 | NUR ---
SS following up with discharge planning. Pt accepted at [facility], ; fax [phone], pending insurance determinations. Pt needing outpatient dialysis set up. SS currently awaiting Hep B total core, IR report for tunneled catheter, and flow sheet from first dialysis. SS will continue to follow up. Pt's RN notified.
[2019-09-13] MEDS ORDERED: IV NORMAL SALINE 1000ML BAG 1,000 ML IV PRN ×2 (13:35)
[2019-09-13] MEDS ORDERED: DIALYSIS PATIENT. MC PRN ×2 (13:45)
[2019-09-13] MEDS ORDERED: LIDOCAINE WITH 8.4% SOD BICARB 3 ML DISP.SYRIN. IJ ONE (14:15)
[2019-09-13] MEDS ORDERED: IODIXANOL 320 MG/ML 100 ML VIAL. IART ONE (14:15)
[2019-09-13] MEDS ORDERED: CONTRAST GIVEN. MC PRN (14:30)
--- NOTE | 2019-09-13 15:55 | RAD ---
Procedure: Tunneled hemodialysis catheter placement 09/13/2019 1:52 PM Clinical Indication: End-stage renal disease, dialysis access Sterility: All elements of maximal sterile barrier technique including the use of a cap, mask, sterile gown, sterile gloves, large sterile sheet, appropriate hand hygiene, and 2% chlorhexidine for cutaneous antisepsis (or acceptable alternative antiseptic per current guidelines) were followed for this procedure. Consent: The procedure was explained in its entirety to the patient or the patients designated route sales representative by a member of the treatment team, including a discussion of the risks, benefits and commonly accepted alternatives to the procedure, as well as the expected consequences of no therapy whatsoever. Discussion of the risks included, but was not limited to, those that are most frequent and those that are rare but possibly severe or life-threatening, as well as the possibility of unforeseen complications. Technique and Findings: Following informed consent, a timeout procedure was performed. The patient was prepped and draped in the usual sterile fashion. Ultrasound interrogation of the right neck revealed patency and compressibility of the right internal jugular vein. A 21-gauge micropuncture was then used to gain access to this vein under ultrasound guidance. A hard copy ultrasound image was recorded. The needle was exchanged over a wire for a 4 Somali sheath which was used to guide an guidewire into the IVC. The skin over the right anterior chest wall was copiously anesthetized with 1% Lidocaine and a small dermatotomy was made. A 23 cm tipped cuff palindrome tunneled hemodialysis catheter was then tunneled subcutaneously towards the neck dermatotomy and deployed through a large caliber peel-away sheath under fluoroscopic guidance such that the distal tip resided in the mid right atrium. Manual flow rates were assessed and found to be within normal limits. The catheter was then flushed, packed with Heparin, capped, and sutured to the skin. The neck dermatotomy was closed with Dermabond. No immediate complications were identified. Sedation: Conscious sedation was administered for 20 minutes. The patient was monitored by a qualified independent observer throughout the time of sedation. Please refer to the medical record for exact doses of medications utilized to achieve moderate sedation. Total fluoroscopy time:: 0.3 MIN Dose area product:: 0.3 Gycm2 Impression: Tunneled hemodialysis catheter placement as described
--- NOTE | 2019-09-13 16:20 | NUR ---
SS following up with discharge planning. SS phoned and faxed referral to [facility], ; fax [phone]. SS will await confirmed chair time and will proceed accordingly with discharge planning.
[2019-09-13] MEDS: POLYETHYLENE GLYCOL 3350 17 GM PACKET. PO SCH (16:41)
[2019-09-13] MEDS: FUROSEMIDE 40 MG TABLET. PO SCH (16:42)
[2019-09-13] MEDS: LABETALOL HCL 200 MG TABLET PO SCH ×2 (16:43→20:26)
[2019-09-13] MEDS: PANTOPRAZOLE 40 MG TABLET.DR. PO SCH (16:43)
[2019-09-13 19:00] VITALS: BP 150/84
[2019-09-13 23:00] VITALS: BP 163/84
[2019-09-14 03:00] VITALS: BP 180/96
[2019-09-14 04:18] LABS: BASO % 0 % (0-3); EOS # 0.1 x10^3/uL (0.0-0.7); EOS % 2 % (0-3); HEMATOCRIT 26.4 % (36.0-47.0); HEMOGLOBIN 8.4 g/dL (12.0-15.5); LYMPH # 0.9 x10^3/uL (1.0-4.8); LYMPH % 20 % (24-48); MEAN CORPUSCULAR HEMOGLOBIN 29 pg (25-35); MEAN CORPUSCULAR HGB CONC 32 g/dL (31-37); MEAN CORPUSCULAR VOLUME 90 fL (79-100); MONO # 0.5 x10^3/uL (0.0-1.1); MONO % 11 % (0-9); NEUT # 3.2 x10^3/uL (1.8-7.7); NEUT % 68 % (31-73); PLATELET COUNT 126 x10^3/uL (140-400); RED BLOOD COUNT 2.92 x10^6/uL (3.50-5.40); RED CELL DISTRIBUTION WIDTH 18.1 % (11.5-14.5); WHITE BLOOD COUNT 4.7 x10^3/uL (4.0-11.0)
[2019-09-14 04:32] LABS: CALCIUM 8.5 mg/dL (8.5-10.1); CREATININE 2.3 mg/dL (0.6-1.0); GFR 26.3; POTASSIUM 4.3 mmol/L (3.5-5.1)
[2019-09-14 07:00] VITALS: BP 178/95
[2019-09-14] MEDS: POLYETHYLENE GLYCOL 3350 17 GM PACKET. PO SCH (07:59)
[2019-09-14] MEDS: MINERAL OIL/PETROLATUM TOPICAL CREAM 113GM JAR. TP SCH ×2 (07:59→20:53)
[2019-09-14] MEDS: DICLOFENAC SODIUM 1% TOPICAL GEL 100GM TUBE. TP SCH ×2 (07:59→20:53)
[2019-09-14] MEDS: LABETALOL HCL 200 MG TABLET PO SCH ×2 (08:00→20:53)
[2019-09-14] MEDS: PANTOPRAZOLE 40 MG TABLET.DR. PO SCH (08:00)
[2019-09-14] MEDS: FUROSEMIDE 40 MG TABLET. PO SCH (08:01)
[2019-09-14] MEDS ORDERED: IV NORMAL SALINE 1000ML BAG 1,000 ML IV PRN ×2 (09:00)
--- NOTE | 2019-09-14 11:08 | PDOC ---
PROGRESS NOTES Subjective Subjective No new complaints. Objective Objective Vital Signs Date Time Temp Pulse Resp B/P (MAP) Pulse Ox O2 Delivery O2 Flow Rate FiO2 09/14/19 08:00 85 178/95 09/14/19 07:45 Room Air 09/14/19 07:00 98.1 24 95 98.1 09/13/19 23:00 2.0 Intake and Output 09/14/19 07:00 Intake Total 100 ml Output Total 700 ml Balance -600 ml Intake Oral 100 ml Output Urine Total 700 ml Physical Exam Physical Exam She is supine on dialysis bed and had right knee immobilizer in place and she continues with right knee joint effusion and painfully limited right knee joint ROM and mobility limitations. Assessment Assessment Problems Medical Problems: (1) Accelerated hypertension Status: Acute (2) CKD (chronic kidney disease) Status: Acute (3) Fall Status: Acute (4) Hypothermia Status: Acute Plan Plan of Care Waiting for mri scan of right knee joint to rule out internal derangement. Comment Review of Relevant I have reviewed the following items gregorio (where applicable) has been applied. Labs Laboratory Tests Test 09/13/19 03:30 09/13/19 08:40 09/13/19 13:10 09/14/19 04:00 White Blood Count 4.5 x10^3/uL (4.0-11.0) 4.7 x10^3/uL (4.0-11.0) Red Blood Count 2.87 x10^6/uL (3.50-5.40) 2.92 x10^6/uL (3.50-5.40) Hemoglobin 8.3 g/dL (12.0-15.5) 8.4 g/dL (12.0-15.5) Hematocrit 26.2 % (36.0-47.0) 26.4 % (36.0-47.0) Mean Corpuscular Volume 91 fL (79-100) 90 fL (79-100) Mean Corpuscular Hemoglobin 29 pg (25-35) 29 pg (25-35) Mean Corpuscular Hemoglobin Concent 32 g/dL (31-37) 32 g/dL (31-37) Red Cell Distribution Width 17.8 % (11.5-14.5) 18.1 % (11.5-14.5) Platelet Count 137 x10^3/uL (140-400) 126 x10^3/uL (140-400) Neutrophils (%) (Auto) 65 % (31-73) 68 % (31-73) Lymphocytes (%) (Auto) 21 % (24-48) 20 % (24-48) Monocytes (%) (Auto) 11 % (0-9) 11 % (0-9) Eosinophils (%) (Auto) 3 % (0-3) 2 % (0-3) Basophils (%) (Auto) 0 % (0-3) 0 % (0-3) Neutrophils # (Auto) 2.9 x10^3/uL (1.8-7.7) 3.2 x10^3/uL (1.8-7.7) Lymphocytes # (Auto) 1.0 x10^3/uL (1.0-4.8) 0.9 x10^3/uL (1.0-4.8) Monocytes # (Auto) 0.5 x10^3/uL (0.0-1.1) 0.5 x10^3/uL (0.0-1.1) Eosinophils # (Auto) 0.1 x10^3/uL (0.0-0.7) 0.1 x10^3/uL (0.0-0.7) Basophils # (Auto) 0.0 x10^3/uL (0.0-0.2) 0.0 x10^3/uL (0.0-0.2) Sodium Level 145 mmol/L (136-145) 143 mmol/L (136-145) Potassium Level 4.7 mmol/L (3.5-5.1) 4.3 mmol/L (3.5-5.1) Chloride Level 110 mmol/L (98-107) 108 mmol/L (98-107) Carbon Dioxide Level 28 mmol/L (21-32) 31 mmol/L (21-32) Anion Gap 7 (6-14) 4 (6-14) Blood Urea Nitrogen 55 mg/dL (7-20) 35 mg/dL (7-20) Creatinine 3.3 mg/dL (0.6-1.0) 2.3 mg/dL (0.6-1.0) Estimated GFR (Cockcroft-Gault) 17.3 26.3 Glucose Level 96 mg/dL (70-99) 91 mg/dL (70-99) Calcium Level 8.4 mg/dL (8.5-10.1) 8.5 mg/dL (8.5-10.1) Phosphorus Level 4.2 mg/dL (2.6-4.7) Albumin 2.0 g/dL (3.4-5.0) Hepatitis B Surface Antigen Nonreactive (Nonreactive) Hepatitis B Surface Antibody Nonreactive Prothrombin Time 15.2 SEC (11.7-14.0) Prothromb Time International Ratio 1.2 (0.8-1.1) Activated Partial Thromboplast Time 30 SEC (24-38) Hepatitis B Core Total Antibody Nonreactive (Nonreactive) Laboratory Tests Test 09/13/19 13:10 09/14/19 04:00 Hepatitis B Core Total Antibody Nonreactive (Nonreactive) White Blood Count 4.7 x10^3/uL (4.0-11.0) Red Blood Count 2.92 x10^6/uL (3.50-5.40) Hemoglobin 8.4 g/dL (12.0-15.5) Hematocrit 26.4 % (36.0-47.0) Mean Corpuscular Volume 90 fL (79-100) Mean Corpuscular Hemoglobin 29 pg (25-35) Mean Corpuscular Hemoglobin Concent 32 g/dL (31-37) Red Cell Distribution Width 18.1 % (11.5-14.5) Platelet Count 126 x10^3/uL (140-400) Neutrophils (%) (Auto) 68 % (31-73) Lymphocytes (%) (Auto) 20 % (24-48) Monocytes (%) (Auto) 11 % (0-9) Eosinophils (%) (Auto) 2 % (0-3) Basophils (%) (Auto) 0 % (0-3) Neutrophils # (Auto) 3.2 x10^3/uL (1.8-7.7) Lymphocytes # (Auto) 0.9 x10^3/uL (1.0-4.8) Monocytes # (Auto) 0.5 x10^3/uL (0.0-1.1) Eosinophils # (Auto) 0.1 x10^3/uL (0.0-0.7) Basophils # (Auto) 0.0 x10^3/uL (0.0-0.2) Sodium Level 143 mmol/L (136-145) Potassium Level 4.3 mmol/L (3.5-5.1) Chloride Level 108 mmol/L (98-107) Carbon Dioxide Level 31 mmol/L (21-32) Anion Gap 4 (6-14) Blood Urea Nitrogen 35 mg/dL (7-20) Creatinine 2.3 mg/dL (0.6-1.0) Estimated GFR (Cockcroft-Gault) 26.3 Glucose Level 91 mg/dL (70-99) Calcium Level 8.5 mg/dL (8.5-10.1) Medications Current Medications Labetalol HCl (Normodyne Iv Push) 10 mg 1X ONCE IVP Last administered on 09/10/19at 21:38; Start 09/10/19 at 21:30; Stop 09/10/19 at 21:31; Status DC Dextrose (Dextrose 50%-Water Syringe) 25 gm STK-MED ONCE IV ; Start 09/10/19 at 21:37; Stop 09/10/19 at 21:37; Status DC Dextrose (Dextrose 50%-Water Syringe) 25 gm 1X ONCE IV Last administered on 09/10/19at 21:44; Start 09/10/19 at 21:45; Stop 09/10/19 at 21:46; Status DC Sodium Chloride 1,000 ml @ 1,000 mls/hr Q1H IV Last administered on 09/10/19at 22:40; Start 09/10/19 at 22:15; Stop 09/10/19 at 23:14; Status DC Labetalol HCl (Normodyne Iv Push) 10 mg 1X ONCE IVP ; Start 09/10/19 at 23:45; Stop 09/10/19 at 23:46; Status UNV Heparin Sodium/ Dextrose 250 ml @ 0 mls/hr CONT PRN IV PER PROTOCOL Last administered on 09/11/19at 00:14; Start 09/10/19 at 23:45; Stop 09/11/19 at 10:46; Status DC Heparin Sodium (Porcine) (Heparin Sodium) 1,600 unit PRN Q6HRS PRN IV FOR UFH LEVEL LESS THAN 0.2; Start 09/10/19 at 23:45; Stop 09/11/19 at 16:30; Status DC Ondansetron HCl (Zofran) 4 mg PRN Q8HRS PRN IV NAUSEA/VOMITING; Start 09/10/19 at 23:45; Stop 09/11/19 at 23:44; Status DC Acetaminophen (Tylenol) 650 mg PRN Q4HRS PRN PO FEVER; Start 09/10/19 at 23:45; Stop 09/11/19 at 23:44; Status DC Nitroglycerin (Nitrostat) 0.4 mg PRN Q5MIN PRN SL CHEST PAIN; Start 09/10/19 at 23:45; Stop 09/11/19 at 23:44; Status DC Calcium Gluconate (Calcium Gluconate) 1,000 mg 1X ONCE IVP Last administered on 09/10/19at 23:59; Start 09/10/19 at 23:45; Stop 09/10/19 at 23:46; Status DC Dextrose (Dextrose 50%-Water Syringe) 25 gm 1X ONCE IV Last administered on 09/10/19at 23:57; Start 09/10/19 at 23:45; Stop 09/10/19 at 23:46; Status DC Insulin Human Regular (HumuLIN R VIAL) 10 unit 1X ONCE IV Last administered on 09/11/19at 00:16; Start 09/10/19 at 23:45; Stop 09/10/19 at 23:46; Status DC Labetalol HCl (Normodyne Iv Push) 10 mg 1X ONCE IVP Last administered on 09/10/19at 22:30; Start 09/10/19 at 23:45; Stop 09/10/19 at 23:46; Status DC Hydralazine HCl (Apresoline Inj) 10 mg Q4HRS PRN IVP ELEVATED BP, SEE COMMENTS Last administered on 09/13/19at 08:33; Start 09/11/19 at 00:00; Stop 09/13/19 at 08:55; Status DC Info (Anti-Coagulation Monitoring By Pharmacy) 1 each PRN DAILY PRN MC SEE COMMENTS; Start 09/11/19 at 08:15; Stop 09/11/19 at 16:30; Status DC Furosemide (Lasix) 40 mg 1X ONCE IVP ; Start 09/11/19 at 11:30; Stop 09/11/19 at 11:31; Status Cancel Darbepoetin Emmanuel (ARANESP for DIALYSIS PTS) 60 mcg WEEKLYHS SQ Last administered on 09/11/19at 20:47; Start 09/11/19 at 21:00 Furosemide (Lasix) 60 mg 1X ONCE IVP Last administered on 09/11/19at 11:18; Start 09/11/19 at 11:00; Stop 09/11/19 at 11:01; Status DC Diclofenac Sodium (Voltaren) 1 del BID TP Last administered on 09/14/19at 07:59; Start 09/11/19 at 12:00 Methylprednisolone Acetate (DEPO-Medrol 40MG VIAL) 40 mg 1X ONCE IM ; Start 09/11/19 at 11:30; Stop 09/11/19 at 11:31; Status DC Bupivacaine HCl (Sensorcaine-Mpf 0.25%) 10 ml 1X ONCE IJ ; Start 09/11/19 at 11:30; Stop 09/11/19 at 11:31; Status DC Multi-Ingredient Ointment (Hydrocerin Cream) 1 del PRN Q1HR PRN TP DRY SKIN / SCALING; Start 09/11/19 at 11:00; Stop 09/11/19 at 11:01; Status DC Multi-Ingredient Ointment (Hydrocerin Cream) 1 del BID TP Last administered on 09/14/19at 07:59; Start 09/11/19 at 21:00 Labetalol HCl (Trandate) 200 mg BID PO Last administered on 09/14/19at 08:00; Start 09/11/19 at 21:00 Polyethylene Glycol (miraLAX PACKET) 17 gm DAILY PO Last administered on 09/14/19at 07:59; Start 09/12/19 at 10:00 Hydralazine HCl (Apresoline Inj) 10 mg PRN Q4HRS PRN IVP ELEVATED BP, SEE COMMENTS; Start 09/12/19 at 12:00 Furosemide (Lasix) 40 mg DAILY PO Last administered on 09/14/19at 08:01; Start 09/12/19 at 12:30 Pantoprazole Sodium (Protonix) 40 mg DAILYAC PO Last administered on 09/14/19at 08:00; Start 09/12/19 at 15:00 Lidocaine/ Epinephrine (LIDOCAINE 1%-EPI 1:100,000 Multi-Dose) 20 ml STK-MED ONCE .ROUTE ; Start 09/13/19 at 12:12; Stop 09/13/19 at 12:12; Status DC Cefazolin Sodium (Ancef) 1 gm STK-MED ONCE IVP ; Start 09/13/19 at 12:32; Stop 09/13/19 at 12:33; Status DC Midazolam HCl (Versed) 2 mg STK-MED ONCE .ROUTE ; Start 09/13/19 at 12:36; Stop 09/13/19 at 12:36; Status DC Fentanyl Citrate (Fentanyl 2ml Vial) 100 mcg STK-MED ONCE .ROUTE ; Start 09/13/19 at 12:36; Stop 09/13/19 at 12:36; Status DC Midazolam HCl (Versed) 2 mg 1X ONCE IV Last administered on 09/13/19at 12:51; Start 09/13/19 at 13:00; Stop 09/13/19 at 13:01; Status DC Fentanyl Citrate (Fentanyl 2ml Vial) 100 mcg 1X ONCE IV Last administered on 09/13/19at 12:52; Start 09/13/19 at 13:00; Stop 09/13/19 at 13:01; Status DC Lidocaine/ Epinephrine (LIDOCAINE 1%-EPI 1:100,000 Multi-Dose) 20 ml 1X ONCE SQ Last administered on 09/13/19at 12:51; Start 09/13/19 at 13:00; Stop 09/13/19 at 13:01; Status DC Cefazolin Sodium (Ancef) 1 gm 1X ONCE IVP Last administered on 09/13/19at 12:51; Start 09/13/19 at 13:00; Stop 09/13/19 at 13:01; Status DC Sodium Chloride 1,000 ml @ 1,000 mls/hr Q1H PRN IV hypotension; Start 09/13/19 at 13:35; Stop 09/13/19 at 19:34; Status DC Sodium Chloride 1,000 ml @ 400 mls/hr Q2H30M PRN IV PATENCY; Start 09/13/19 at 13:35; Stop 09/14/19 at 01:35; Status DC Info (PHARMACY MONITORING -- do not chart) 1 each PRN DAILY PRN MC SEE COMMENTS; Start 09/13/19 at 13:45; Status UNV Info (PHARMACY MONITORING -- do not chart) 1 each PRN DAILY PRN MC SEE COMMENTS; Start 09/13/19 at 13:45 Lidocaine HCl (Buffered Lidocaine 1%) 3 ml 1X ONCE IJ ; Start 09/13/19 at 14:15; Stop 09/13/19 at 14:16; Status Cancel Midazolam HCl (Versed) 2 mg 1X ONCE IV ; Start 09/13/19 at 14:15; Stop 09/13/19 at 14:16; Status Cancel Fentanyl Citrate (Fentanyl 2ml Vial) 100 mcg 1X ONCE IV ; Start 09/13/19 at 14 :15; Stop 09/13/19 at 14:16; Status Cancel Iodixanol (Visipaque 320) 100 ml 1X ONCE IART ; Start 09/13/19 at 14:15; Stop 09/13/19 at 14:16; Status Cancel Cefazolin Sodium (Ancef) 1 gm 1X ONCE IVP ; Start 09/13/19 at 14:15; Stop 09/13/19 at 14:16; Status Cancel Info (CONTRAST GIVEN -- Rx MONITORING) 1 each PRN DAILY PRN MC SEE COMMENTS; Start 09/13/19 at 14:30; Stop 09/15/19 at 14:29; Status Cancel Active Scripts Active [Darbepoetin Emmanuel In Polysorbat] 60 MCG/0.3 ML Disp.syrin 60 Mcg SQ WEEKLYHS 30 Days Reported Protonix (Pantoprazole Sodium) 40 Mg Tablet.dr 40 Mg PO DAILYAC Multivitamins (Multivitamin) 1 Each Tablet 1 Tab PO DAILY Symbicort 160-4.5 Mcg Inhaler (Budesonide/Formoterol Fumarate) 10.2 Gm Hfa.aer.ad 1 Puff IH BID Spiriva (Tiotropium Crowell) 18 Mcg Cap.w.dev 2 Inh IH DAILY Xarelto (Rivaroxaban) 10 Mg Tablet 10 Mg PO DAILY Phoslo (Calcium Acetate) 667 Mg Capsule 1 Cap PO BIDWMEALS K-Tab ER (Potassium Chloride) 20 Meq Tablet.er 20 Meq PO DAILY Vitals/I & O Vital Sign - Last 24 Hours 09/13/19 09/13/19 09/13/19 09/13/19 12:52 13:02 16:43 19:00 Temp 97.8 97.8 Pulse 78 90 87 Resp 16 14 24 B/P (MAP) 134/75 150/84 (106) Pulse Ox 100 100 98 O2 Delivery Nasal Cannula Nasal Cannula Nasal Cannula O2 Flow Rate 2.0 2.0 2.0 09/13/19 09/13/19 09/13/19 09/14/19 19:30 20:26 23:00 03:00 Temp 98.5 98.7 98.5 98.7 Pulse 87 84 85 Resp 20 24 B/P (MAP) 150/84 163/84 (110) 180/96 (124) Pulse Ox 97 87 O2 Delivery Room Air Nasal Cannula Room Air O2 Flow Rate 2.0 09/14/19 09/14/19 09/14/19 07:00 07:45 08:00 Temp 98.1 98.1 Pulse 86 85 Resp 24 B/P (MAP) 178/95 (122) 178/95 Pulse Ox 95 O2 Delivery Room Air Room Air Intake and Output 09/13/19 09/13/19 09/14/19 15:00 23:00 07:00 Intake Total 0 ml 100 ml Output Total 500 ml 200 ml Balance -500 ml -100 ml Hemodynamically unstable?: No Is patient in severe pain?: Yes Is NPO status required?: No FAITH ADDISON MD Sep 14, 2019 11:08
[2019-09-14] MEDS ORDERED: DIALYSIS PATIENT. MC PRN ×2 (11:15)
--- NOTE | 2019-09-14 11:23 | PDOC ---
Dialysis Progress Note Dialysis Note Dialysis Note Seen on Hemodialysis, tolerating treatment Well so far Vitals on Hemodialysis: 172/99 81 afeb General Appearance: Awake: Alert Oriented x 2-3 Neck: No JVD or JVP Chest: CTA Angus Heart: S1 S2 Abdomen - Soft NTND Extremities - No Edema ESRD: Dialysis as below F 180 NR 3.0 Hrs 3 K 2.5 Ca 140 Na 35 HC03 Qb 350 + Qd 500+ Heparin 0 Units Uf 2 Kgs or to dry weight as tolerated May give 25-50 gms of 25% Albumin if needed to maintain Hemodynamic stability Treatment plan reviewed and discussed with head shipper Vitals Vital Signs Vital Signs Date Time Temp Pulse Resp B/P (MAP) Pulse Ox O2 Delivery O2 Flow Rate FiO2 09/14/19 08:00 85 178/95 09/14/19 07:45 Room Air 09/14/19 07:00 98.1 24 95 98.1 09/13/19 23:00 2.0 Labs Last Labs Laboratory Tests Test 09/13/19 03:30 09/13/19 08:40 09/13/19 13:10 09/14/19 04:00 White Blood Count 4.5 x10^3/uL (4.0-11.0) 4.7 x10^3/uL (4.0-11.0) Red Blood Count 2.87 x10^6/uL (3.50-5.40) 2.92 x10^6/uL (3.50-5.40) Hemoglobin 8.3 g/dL (12.0-15.5) 8.4 g/dL (12.0-15.5) Hematocrit 26.2 % (36.0-47.0) 26.4 % (36.0-47.0) Mean Corpuscular Volume 91 fL (79-100) 90 fL (79-100) Mean Corpuscular Hemoglobin 29 pg (25-35) 29 pg (25-35) Mean Corpuscular Hemoglobin Concent 32 g/dL (31-37) 32 g/dL (31-37) Red Cell Distribution Width 17.8 % (11.5-14.5) 18.1 % (11.5-14.5) Platelet Count 137 x10^3/uL (140-400) 126 x10^3/uL (140-400) Neutrophils (%) (Auto) 65 % (31-73) 68 % (31-73) Lymphocytes (%) (Auto) 21 % (24-48) 20 % (24-48) Monocytes (%) (Auto) 11 % (0-9) 11 % (0-9) Eosinophils (%) (Auto) 3 % (0-3) 2 % (0-3) Basophils (%) (Auto) 0 % (0-3) 0 % (0-3) Neutrophils # (Auto) 2.9 x10^3/uL (1.8-7.7) 3.2 x10^3/uL (1.8-7.7) Lymphocytes # (Auto) 1.0 x10^3/uL (1.0-4.8) 0.9 x10^3/uL (1.0-4.8) Monocytes # (Auto) 0.5 x10^3/uL (0.0-1.1) 0.5 x10^3/uL (0.0-1.1) Eosinophils # (Auto) 0.1 x10^3/uL (0.0-0.7) 0.1 x10^3/uL (0.0-0.7) Basophils # (Auto) 0.0 x10^3/uL (0.0-0.2) 0.0 x10^3/uL (0.0-0.2) Sodium Level 145 mmol/L (136-145) 143 mmol/L (136-145) Potassium Level 4.7 mmol/L (3.5-5.1) 4.3 mmol/L (3.5-5.1) Chloride Level 110 mmol/L (98-107) 108 mmol/L (98-107) Carbon Dioxide Level 28 mmol/L (21-32) 31 mmol/L (21-32) Anion Gap 7 (6-14) 4 (6-14) Blood Urea Nitrogen 55 mg/dL (7-20) 35 mg/dL (7-20) Creatinine 3.3 mg/dL (0.6-1.0) 2.3 mg/dL (0.6-1.0) Estimated GFR (Cockcroft-Gault) 17.3 26.3 Glucose Level 96 mg/dL (70-99) 91 mg/dL (70-99) Calcium Level 8.4 mg/dL (8.5-10.1) 8.5 mg/dL (8.5-10.1) Phosphorus Level 4.2 mg/dL (2.6-4.7) Albumin 2.0 g/dL (3.4-5.0) Hepatitis B Surface Antigen Nonreactive (Nonreactive) Hepatitis B Surface Antibody Nonreactive Prothrombin Time 15.2 SEC (11.7-14.0) Prothromb Time International Ratio 1.2 (0.8-1.1) Activated Partial Thromboplast Time 30 SEC (24-38) Hepatitis B Core Total Antibody Nonreactive (Nonreactive) Laboratory Tests Test 09/13/19 13:10 09/14/19 04:00 Hepatitis B Core Total Antibody Nonreactive (Nonreactive) White Blood Count 4.7 x10^3/uL (4.0-11.0) Red Blood Count 2.92 x10^6/uL (3.50-5.40) Hemoglobin 8.4 g/dL (12.0-15.5) Hematocrit 26.4 % (36.0-47.0) Mean Corpuscular Volume 90 fL (79-100) Mean Corpuscular Hemoglobin 29 pg (25-35) Mean Corpuscular Hemoglobin Concent 32 g/dL (31-37) Red Cell Distribution Width 18.1 % (11.5-14.5) Platelet Count 126 x10^3/uL (140-400) Neutrophils (%) (Auto) 68 % (31-73) Lymphocytes (%) (Auto) 20 % (24-48) Monocytes (%) (Auto) 11 % (0-9) Eosinophils (%) (Auto) 2 % (0-3) Basophils (%) (Auto) 0 % (0-3) Neutrophils # (Auto) 3.2 x10^3/uL (1.8-7.7) Lymphocytes # (Auto) 0.9 x10^3/uL (1.0-4.8) Monocytes # (Auto) 0.5 x10^3/uL (0.0-1.1) Eosinophils # (Auto) 0.1 x10^3/uL (0.0-0.7) Basophils # (Auto) 0.0 x10^3/uL (0.0-0.2) Sodium Level 143 mmol/L (136-145) Potassium Level 4.3 mmol/L (3.5-5.1) Chloride Level 108 mmol/L (98-107) Carbon Dioxide Level 31 mmol/L (21-32) Anion Gap 4 (6-14) Blood Urea Nitrogen 35 mg/dL (7-20) Creatinine 2.3 mg/dL (0.6-1.0) Estimated GFR (Cockcroft-Gault) 26.3 Glucose Level 91 mg/dL (70-99) Calcium Level 8.5 mg/dL (8.5-10.1) Assessment Assessment Problems Medical Problems: (1) Accelerated hypertension Status: Acute (2) CKD (chronic kidney disease) Status: Acute (3) Fall Status: Acute (4) Hypothermia Status: Acute Plan Plan of Care Problems Medical Problems: (1) Accelerated hypertension Status: Acute (2) CKD (chronic kidney disease) Status: Acute (3) Fall Status: Acute (4) Hypothermia Status: Acute DANIELLE MONAE MD Sep 14, 2019 11:23
--- NOTE | 2019-09-14 13:47 | PDOC ---
[facility] PROGRESS NOTE Chief Complaint Chief Complaint Acute on chronic systolic and diastolic heart failure Traumatic mechanical fall: right knee effusion with possible hemarthrosis RIYA ATN sprained right knee PAFIB: maintaining SR Anemia Lupus Membranous nephropathy Proteinuria Azotemia Deconditioning Pain Weakness History of Present Illness History of Present Illness Patient seen and examined Currently getting dialyzed (this is her second day of new dialysis) Discussed with Dr. Marcos to We are awaiting an MRI of the knee Discussed with RN Chart reviewed Patient seen and examined She is going for dialysis catheter placement today We'll start hemodialysis later today Discussed with RN Discussed with case management Chart reviewed 09/12/19 Pt seen and examined. Pt was resting in NAD during meeting and awoke for examination. Pt was pleasant and conversant. Pt denies f/c/n/v. Pt claims to feel weaker and more lethargic than normal DW nurse regarding anemia. Pt's chart reviewed. Vitals/I&O Vitals/I&O: Vital Signs Date Time Temp Pulse Resp B/P (MAP) Pulse Ox O2 Delivery O2 Flow Rate FiO2 09/14/19 08:00 85 178/95 09/14/19 07:45 Room Air 09/14/19 07:00 98.1 24 95 98.1 09/13/19 23:00 2.0 I & O 09/13/19 09/13/19 09/14/19 15:00 23:00 07:00 Intake Total 0 ml 100 ml Output Total 500 ml 200 ml Balance -500 ml -100 ml Physical Exam General: Alert, Oriented X3, Cooperative, No acute distress Heart: Regular rate (SR), Normal S1, Normal S2, Other (4/6 systolic murmur to LLS border; S4) Lungs: Other Abdomen: Soft, No tenderness Extremities: No cyanosis, Other (2-3+ bilateral LE pitting edema) Skin: No breakdown, No significant lesion Labs Labs: Laboratory Tests Test 09/14/19 04:00 White Blood Count 4.7 x10^3/uL (4.0-11.0) Red Blood Count 2.92 x10^6/uL (3.50-5.40) Hemoglobin 8.4 g/dL (12.0-15.5) Hematocrit 26.4 % (36.0-47.0) Mean Corpuscular Volume 90 fL (79-100) Mean Corpuscular Hemoglobin 29 pg (25-35) Mean Corpuscular Hemoglobin Concent 32 g/dL (31-37) Red Cell Distribution Width 18.1 % (11.5-14.5) Platelet Count 126 x10^3/uL (140-400) Neutrophils (%) (Auto) 68 % (31-73) Lymphocytes (%) (Auto) 20 % (24-48) Monocytes (%) (Auto) 11 % (0-9) Eosinophils (%) (Auto) 2 % (0-3) Basophils (%) (Auto) 0 % (0-3) Neutrophils # (Auto) 3.2 x10^3/uL (1.8-7.7) Lymphocytes # (Auto) 0.9 x10^3/uL (1.0-4.8) Monocytes # (Auto) 0.5 x10^3/uL (0.0-1.1) Eosinophils # (Auto) 0.1 x10^3/uL (0.0-0.7) Basophils # (Auto) 0.0 x10^3/uL (0.0-0.2) Sodium Level 143 mmol/L (136-145) Potassium Level 4.3 mmol/L (3.5-5.1) Chloride Level 108 mmol/L (98-107) Carbon Dioxide Level 31 mmol/L (21-32) Anion Gap 4 (6-14) Blood Urea Nitrogen 35 mg/dL (7-20) Creatinine 2.3 mg/dL (0.6-1.0) Estimated GFR (Cockcroft-Gault) 26.3 Glucose Level 91 mg/dL (70-99) Calcium Level 8.5 mg/dL (8.5-10.1) Review of Systems Review of Systems: Complains of weakness complains of knee pain Assessment and Plan Assessmemt and Plan Problems Medical Problems: (1) Accelerated hypertension Status: Acute (2) CKD (chronic kidney disease) Status: Acute (3) Fall Status: Acute (4) Hypothermia Status: Acute Acute on chronic systolic and diastolic heart failure Traumatic mechanical fall: right knee effusion with possible hemarthrosis RIYA ATN (we are going forward with starting dialysis today) sprained right knee PAFIB: maintaining SR Anemia Lupus Membranous nephropathy Proteinuria Azotemia Deconditioning Pain Weakness Plan Daily dialysis for 3 days then we plan to go to every other day dialysis Awaiting chair time We are hoping after a few months she might be able to mouth dialysis Appreciate subspecialist input Await MRI of the knee Continue other treatments Home meds DVT prophylaxis Full code Trend labs Long-term prognosis guarded Comment Review of Relevant I have reviewed the following items gregorio (where applicable) has been applied. Hemodynamically unstable?: No Is patient in severe pain?: Yes Is NPO status required?: No ADAIR SOLARES III DO Sep 14, 2019 13:47
[2019-09-14] MEDS: hydrALAZINE 20 MG/ML VIAL. IVP PRN (13:59)
[2019-09-14 15:00] VITALS: BP 153/74
[2019-09-14] MEDS: ACETAMINOPHEN 325 MG TABLET. PO PRN (16:52)
[2019-09-14 19:10] VITALS: BP 122/76
[2019-09-14 23:05] VITALS: BP 154/87
[2019-09-15 03:35] VITALS: BP 189/93
[2019-09-15 04:56] LABS: BASO % 0 % (0-3); EOS # 0.1 x10^3/uL (0.0-0.7); EOS % 2 % (0-3); HEMATOCRIT 27.1 % (36.0-47.0); HEMOGLOBIN 8.7 g/dL (12.0-15.5); LYMPH # 0.7 x10^3/uL (1.0-4.8); LYMPH % 14 % (24-48); MEAN CORPUSCULAR HEMOGLOBIN 29 pg (25-35); MEAN CORPUSCULAR HGB CONC 32 g/dL (31-37); MEAN CORPUSCULAR VOLUME 90 fL (79-100); MONO # 0.6 x10^3/uL (0.0-1.1); MONO % 12 % (0-9); NEUT # 3.5 x10^3/uL (1.8-7.7); NEUT % 72 % (31-73); PLATELET COUNT 113 x10^3/uL (140-400); RED BLOOD COUNT 3.02 x10^6/uL (3.50-5.40); RED CELL DISTRIBUTION WIDTH 17.9 % (11.5-14.5); WHITE BLOOD COUNT 4.8 x10^3/uL (4.0-11.0)
[2019-09-15 05:19] LABS: CALCIUM 8.4 mg/dL (8.5-10.1); CREATININE 1.8 mg/dL (0.6-1.0); GFR 34.8; POTASSIUM 4.2 mmol/L (3.5-5.1)
[2019-09-15 07:20] VITALS: BP 156/87
[2019-09-15] MEDS: MINERAL OIL/PETROLATUM TOPICAL CREAM 113GM JAR. TP SCH ×2 (07:20→20:52)
[2019-09-15] MEDS: POLYETHYLENE GLYCOL 3350 17 GM PACKET. PO SCH (07:21)
[2019-09-15] MEDS: LABETALOL HCL 200 MG TABLET PO SCH ×2 (07:21→20:53)
[2019-09-15] MEDS: DICLOFENAC SODIUM 1% TOPICAL GEL 100GM TUBE. TP SCH ×2 (07:21→20:53)
[2019-09-15] MEDS: PANTOPRAZOLE 40 MG TABLET.DR. PO SCH (07:21)
[2019-09-15] MEDS: FUROSEMIDE 40 MG TABLET. PO SCH (07:21)
[2019-09-15 11:00] VITALS: BP 181/83
[2019-09-15] MEDS ORDERED: BISACODYL 5 MG TABLET.DR. PO PRN (13:30)
--- NOTE | 2019-09-15 14:48 | PDOC ---
[facility] PROGRESS NOTE Chief Complaint Chief Complaint Acute on chronic systolic and diastolic heart failure Traumatic mechanical fall: right knee effusion with possible hemarthrosis RIYA ATN sprained right knee PAFIB: maintaining SR Anemia Lupus Membranous nephropathy Proteinuria Azotemia Deconditioning Pain Weakness History of Present Illness History of Present Illness [id number] Patient seen and examined Chart reviewed Discussed with RN We are still awaiting chair time for dialysis Anticoagulation is on hold as Dr. Mcnamara is planning on injecting her knee if the MRI doesn't show anything serious [id number] Patient seen and examined Currently getting dialyzed (this is her second day of new dialysis) Discussed with Dr. Marcos to We are awaiting an MRI of the knee Discussed with RN Chart reviewed [id number] Patient seen and examined She is going for dialysis catheter placement today We'll start hemodialysis later today Discussed with RN Discussed with case management Chart reviewed 09/12/19 Pt seen and examined. Pt was resting in NAD during meeting and awoke for examination. Pt was pleasant and conversant. Pt denies f/c/n/v. Pt claims to feel weaker and more lethargic than normal DW nurse regarding anemia. Pt's chart reviewed. Vitals/I&O Vitals/I&O: Vital Signs Date Time Temp Pulse Resp B/P (MAP) Pulse Ox O2 Delivery O2 Flow Rate FiO2 09/15/19 11:00 99.3 85 18 181/83 (115) 96 Room Air 99.3 I & O 09/14/19 09/14/19 09/15/19 15:00 23:00 07:00 Intake Total 540 ml 500 ml Output Total 200 ml 150 ml Balance 340 ml 350 ml Physical Exam General: Alert, Oriented X3, Cooperative, No acute distress Heart: Regular rate (SR), Normal S1, Normal S2, Other (4/6 systolic murmur to LLS border; S4) Lungs: Other Abdomen: Soft, No tenderness Extremities: No cyanosis, Other (2-3+ bilateral LE pitting edema) Skin: No breakdown, No significant lesion Labs Labs: Laboratory Tests Test 09/15/19 04:00 White Blood Count 4.8 x10^3/uL (4.0-11.0) Red Blood Count 3.02 x10^6/uL (3.50-5.40) Hemoglobin 8.7 g/dL (12.0-15.5) Hematocrit 27.1 % (36.0-47.0) Mean Corpuscular Volume 90 fL (79-100) Mean Corpuscular Hemoglobin 29 pg (25-35) Mean Corpuscular Hemoglobin Concent 32 g/dL (31-37) Red Cell Distribution Width 17.9 % (11.5-14.5) Platelet Count 113 x10^3/uL (140-400) Neutrophils (%) (Auto) 72 % (31-73) Lymphocytes (%) (Auto) 14 % (24-48) Monocytes (%) (Auto) 12 % (0-9) Eosinophils (%) (Auto) 2 % (0-3) Basophils (%) (Auto) 0 % (0-3) Neutrophils # (Auto) 3.5 x10^3/uL (1.8-7.7) Lymphocytes # (Auto) 0.7 x10^3/uL (1.0-4.8) Monocytes # (Auto) 0.6 x10^3/uL (0.0-1.1) Eosinophils # (Auto) 0.1 x10^3/uL (0.0-0.7) Basophils # (Auto) 0.0 x10^3/uL (0.0-0.2) Sodium Level 139 mmol/L (136-145) Potassium Level 4.2 mmol/L (3.5-5.1) Chloride Level 103 mmol/L (98-107) Carbon Dioxide Level 31 mmol/L (21-32) Anion Gap 5 (6-14) Blood Urea Nitrogen 21 mg/dL (7-20) Creatinine 1.8 mg/dL (0.6-1.0) Estimated GFR (Cockcroft-Gault) 34.8 Glucose Level 89 mg/dL (70-99) Calcium Level 8.4 mg/dL (8.5-10.1) Review of Systems Review of Systems: Complains of knee pain complains of weakness Assessment and Plan Assessmemt and Plan Problems Medical Problems: (1) Accelerated hypertension Status: Acute (2) CKD (chronic kidney disease) Status: Acute (3) Fall Status: Acute (4) Hypothermia Status: Acute Acute on chronic systolic and diastolic heart failure Traumatic mechanical fall: right knee effusion with possible hemarthrosis RIYA ATN (we are going forward with starting dialysis today) sprained right knee PAFIB: maintaining SR Anemia Lupus Membranous nephropathy Proteinuria Azotemia Deconditioning Pain Weakness Plan Daily dialysis for 3 days then we plan to go to every other day dialysis Awaiting chair time Dr. Priti marley would like to inject the left knee if the MRI doesn't show anything serious Hold anticoagulation for now MRI in a.m. We are hoping after a few months she might be able to mouth dialysis Appreciate subspecialist input Home meds DVT prophylaxis Full code Trend labs Long-term prognosis guarded Comment Review of Relevant I have reviewed the following items gregorio (where applicable) has been applied. Medications: Current Medications Medications (Trade) Dose Ordered Sig/Blaine Route PRN Reason Start Time Stop Time Status Last Admin Dose Admin Acetaminophen (Tylenol) 650 mg PRN Q6HRS PRN PO MILD PAIN 1-3 09/14/19 16:45 09/14/19 16:52 Bisacodyl (Dulcolax Tab) 5 mg PRN DAILY PRN PO CONSTIPATION 09/15/19 13:30 09/15/19 13:39 Hemodynamically unstable?: No Is patient in severe pain?: Yes Is NPO status required?: No ADAIR SOLARES III DO Sep 15, 2019 14:48
[2019-09-15 15:03] VITALS: BP 152/80
[2019-09-15] MEDS: ACETAMINOPHEN 325 MG TABLET. PO PRN (15:14)
[2019-09-15 18:22] VITALS: BP 143/82
[2019-09-15 22:38] VITALS: BP 117/60
[2019-09-16 02:50] VITALS: BP 179/91
[2019-09-16 05:46] LABS: BASO % 0 % (0-3); EOS # 0.1 x10^3/uL (0.0-0.7); EOS % 2 % (0-3); HEMATOCRIT 26.9 % (36.0-47.0); HEMOGLOBIN 8.6 g/dL (12.0-15.5); LYMPH # 0.5 x10^3/uL (1.0-4.8); LYMPH % 10 % (24-48); MEAN CORPUSCULAR HEMOGLOBIN 29 pg (25-35); MEAN CORPUSCULAR HGB CONC 32 g/dL (31-37); MEAN CORPUSCULAR VOLUME 90 fL (79-100); MONO # 0.7 x10^3/uL (0.0-1.1); MONO % 13 % (0-9); NEUT # 3.9 x10^3/uL (1.8-7.7); NEUT % 75 % (31-73); PLATELET COUNT 112 x10^3/uL (140-400); RED BLOOD COUNT 2.98 x10^6/uL (3.50-5.40); WHITE BLOOD COUNT 5.1 x10^3/uL (4.0-11.0)
[2019-09-16 05:58] LABS: CALCIUM 8.7 mg/dL (8.5-10.1); CREATININE 2.2 mg/dL (0.6-1.0); GFR 27.6; POTASSIUM 4.4 mmol/L (3.5-5.1)
[2019-09-16 06:48] VITALS: BP 190/98
[2019-09-16] MEDS ORDERED: IV NORMAL SALINE 1000ML BAG 1,000 ML IV PRN ×2 (08:00)
[2019-09-16] MEDS: hydrALAZINE 20 MG/ML VIAL. IVP PRN (08:11)
[2019-09-16] MEDS: LABETALOL HCL 200 MG TABLET PO SCH ×2 (08:12→20:09)
[2019-09-16] MEDS: FUROSEMIDE 40 MG TABLET. PO SCH (08:12)
[2019-09-16] MEDS: POLYETHYLENE GLYCOL 3350 17 GM PACKET. PO SCH ×2 (09:00→13:57)
--- NOTE | 2019-09-16 09:34 | PDOC ---
PROGRESS NOTES Subjective Subjective No new complaints. Objective Objective Vital Signs Date Time Temp Pulse Resp B/P (MAP) Pulse Ox O2 Delivery O2 Flow Rate FiO2 09/16/19 08:12 92 190/98 09/16/19 06:48 98.8 16 90 Room Air 98.8 09/13/19 23:00 2.0 Intake and Output 09/16/19 07:00 Intake Total 1200 ml Output Total 600 ml Balance 600 ml Intake Oral 1200 ml Output Urine Total 600 ml Physical Exam Physical Exam She continues with right knee joint effusion and pain on ROM of right knee joint. She is alert,receiving hemodialysis. Assessment Assessment Problems Medical Problems: (1) Accelerated hypertension Status: Acute (2) CKD (chronic kidney disease) Status: Acute (3) Fall Status: Acute (4) Hypothermia Status: Acute Plan Plan of Care Rust waiting for mri scan of right knee joint,to rule out any internal derangement. Comment Review of Relevant I have reviewed the following items gregorio (where applicable) has been applied. Labs Laboratory Tests Test 09/15/19 04:00 09/16/19 04:35 White Blood Count 4.8 x10^3/uL (4.0-11.0) 5.1 x10^3/uL (4.0-11.0) Red Blood Count 3.02 x10^6/uL (3.50-5.40) 2.98 x10^6/uL (3.50-5.40) Hemoglobin 8.7 g/dL (12.0-15.5) 8.6 g/dL (12.0-15.5) Hematocrit 27.1 % (36.0-47.0) 26.9 % (36.0-47.0) Mean Corpuscular Volume 90 fL (79-100) 90 fL (79-100) Mean Corpuscular Hemoglobin 29 pg (25-35) 29 pg (25-35) Mean Corpuscular Hemoglobin Concent 32 g/dL (31-37) 32 g/dL (31-37) Red Cell Distribution Width 17.9 % (11.5-14.5) 18.0 % (11.5-14.5) Platelet Count 113 x10^3/uL (140-400) 112 x10^3/uL (140-400) Neutrophils (%) (Auto) 72 % (31-73) 75 % (31-73) Lymphocytes (%) (Auto) 14 % (24-48) 10 % (24-48) Monocytes (%) (Auto) 12 % (0-9) 13 % (0-9) Eosinophils (%) (Auto) 2 % (0-3) 2 % (0-3) Basophils (%) (Auto) 0 % (0-3) 0 % (0-3) Neutrophils # (Auto) 3.5 x10^3/uL (1.8-7.7) 3.9 x10^3/uL (1.8-7.7) Lymphocytes # (Auto) 0.7 x10^3/uL (1.0-4.8) 0.5 x10^3/uL (1.0-4.8) Monocytes # (Auto) 0.6 x10^3/uL (0.0-1.1) 0.7 x10^3/uL (0.0-1.1) Eosinophils # (Auto) 0.1 x10^3/uL (0.0-0.7) 0.1 x10^3/uL (0.0-0.7) Basophils # (Auto) 0.0 x10^3/uL (0.0-0.2) 0.0 x10^3/uL (0.0-0.2) Sodium Level 139 mmol/L (136-145) 140 mmol/L (136-145) Potassium Level 4.2 mmol/L (3.5-5.1) 4.4 mmol/L (3.5-5.1) Chloride Level 103 mmol/L (98-107) 103 mmol/L (98-107) Carbon Dioxide Level 31 mmol/L (21-32) 31 mmol/L (21-32) Anion Gap 5 (6-14) 6 (6-14) Blood Urea Nitrogen 21 mg/dL (7-20) 28 mg/dL (7-20) Creatinine 1.8 mg/dL (0.6-1.0) 2.2 mg/dL (0.6-1.0) Estimated GFR (Cockcroft-Gault) 34.8 27.6 Glucose Level 89 mg/dL (70-99) 86 mg/dL (70-99) Calcium Level 8.4 mg/dL (8.5-10.1) 8.7 mg/dL (8.5-10.1) Laboratory Tests Test 09/16/19 04:35 White Blood Count 5.1 x10^3/uL (4.0-11.0) Red Blood Count 2.98 x10^6/uL (3.50-5.40) Hemoglobin 8.6 g/dL (12.0-15.5) Hematocrit 26.9 % (36.0-47.0) Mean Corpuscular Volume 90 fL (79-100) Mean Corpuscular Hemoglobin 29 pg (25-35) Mean Corpuscular Hemoglobin Concent 32 g/dL (31-37) Red Cell Distribution Width 18.0 % (11.5-14.5) Platelet Count 112 x10^3/uL (140-400) Neutrophils (%) (Auto) 75 % (31-73) Lymphocytes (%) (Auto) 10 % (24-48) Monocytes (%) (Auto) 13 % (0-9) Eosinophils (%) (Auto) 2 % (0-3) Basophils (%) (Auto) 0 % (0-3) Neutrophils # (Auto) 3.9 x10^3/uL (1.8-7.7) Lymphocytes # (Auto) 0.5 x10^3/uL (1.0-4.8) Monocytes # (Auto) 0.7 x10^3/uL (0.0-1.1) Eosinophils # (Auto) 0.1 x10^3/uL (0.0-0.7) Basophils # (Auto) 0.0 x10^3/uL (0.0-0.2) Sodium Level 140 mmol/L (136-145) Potassium Level 4.4 mmol/L (3.5-5.1) Chloride Level 103 mmol/L (98-107) Carbon Dioxide Level 31 mmol/L (21-32) Anion Gap 6 (6-14) Blood Urea Nitrogen 28 mg/dL (7-20) Creatinine 2.2 mg/dL (0.6-1.0) Estimated GFR (Cockcroft-Gault) 27.6 Glucose Level 86 mg/dL (70-99) Calcium Level 8.7 mg/dL (8.5-10.1) Medications Current Medications Labetalol HCl (Normodyne Iv Push) 10 mg 1X ONCE IVP Last administered on 09/10/19at 21:38; Start 09/10/19 at 21:30; Stop 09/10/19 at 21:31; Status DC Dextrose (Dextrose 50%-Water Syringe) 25 gm STK-MED ONCE IV ; Start 09/10/19 at 21:37; Stop 09/10/19 at 21:37; Status DC Dextrose (Dextrose 50%-Water Syringe) 25 gm 1X ONCE IV Last administered on 09/10/19at 21:44; Start 09/10/19 at 21:45; Stop 09/10/19 at 21:46; Status DC Sodium Chloride 1,000 ml @ 1,000 mls/hr Q1H IV Last administered on 09/10/19at 22:40; Start 09/10/19 at 22:15; Stop 09/10/19 at 23:14; Status DC Labetalol HCl (Normodyne Iv Push) 10 mg 1X ONCE IVP ; Start 09/10/19 at 23:45; Stop 09/10/19 at 23:46; Status UNV Heparin Sodium/ Dextrose 250 ml @ 0 mls/hr CONT PRN IV PER PROTOCOL Last administered on 09/11/19at 00:14; Start 09/10/19 at 23:45; Stop 09/11/19 at 10:46; Status DC Heparin Sodium (Porcine) (Heparin Sodium) 1,600 unit PRN Q6HRS PRN IV FOR UFH LEVEL LESS THAN 0.2; Start 09/10/19 at 23:45; Stop 09/11/19 at 16:30; Status DC Ondansetron HCl (Zofran) 4 mg PRN Q8HRS PRN IV NAUSEA/VOMITING; Start 09/10/19 at 23:45; Stop 09/11/19 at 23:44; Status DC Acetaminophen (Tylenol) 650 mg PRN Q4HRS PRN PO FEVER; Start 09/10/19 at 23:45; Stop 09/11/19 at 23:44; Status DC Nitroglycerin (Nitrostat) 0.4 mg PRN Q5MIN PRN SL CHEST PAIN; Start 09/10/19 at 23:45; Stop 09/11/19 at 23:44; Status DC Calcium Gluconate (Calcium Gluconate) 1,000 mg 1X ONCE IVP Last administered on 09/10/19at 23:59; Start 09/10/19 at 23:45; Stop 09/10/19 at 23:46; Status DC Dextrose (Dextrose 50%-Water Syringe) 25 gm 1X ONCE IV Last administered on 09/10/19at 23:57; Start 09/10/19 at 23:45; Stop 09/10/19 at 23:46; Status DC Insulin Human Regular (HumuLIN R VIAL) 10 unit 1X ONCE IV Last administered on 09/11/19at 00:16; Start 09/10/19 at 23:45; Stop 09/10/19 at 23:46; Status DC Labetalol HCl (Normodyne Iv Push) 10 mg 1X ONCE IVP Last administered on 09/10/19at 22:30; Start 09/10/19 at 23:45; Stop 09/10/19 at 23:46; Status DC Hydralazine HCl (Apresoline Inj) 10 mg Q4HRS PRN IVP ELEVATED BP, SEE COMMENTS Last administered on 09/13/19at 08:33; Start 09/11/19 at 00:00; Stop 09/13/19 at 08:55; Status DC Info (Anti-Coagulation Monitoring By Pharmacy) 1 each PRN DAILY PRN MC SEE COMMENTS; Start 09/11/19 at 08:15; Stop 09/11/19 at 16:30; Status DC Furosemide (Lasix) 40 mg 1X ONCE IVP ; Start 09/11/19 at 11:30; Stop 09/11/19 at 11:31; Status Cancel Darbepoetin Emmanuel (ARANESP for DIALYSIS PTS) 60 mcg WEEKLYHS SQ Last administered on 09/11/19at 20:47; Start 09/11/19 at 21:00 Furosemide (Lasix) 60 mg 1X ONCE IVP Last administered on 09/11/19at 11:18; Start 09/11/19 at 11:00; Stop 09/11/19 at 11:01; Status DC Diclofenac Sodium (Voltaren) 1 del BID TP Last administered on 09/15/19at 20:53; Start 09/11/19 at 12:00 Methylprednisolone Acetate (DEPO-Medrol 40MG VIAL) 40 mg 1X ONCE IM ; Start 09/11/19 at 11:30; Stop 09/11/19 at 11:31; Status DC Bupivacaine HCl (Sensorcaine-Mpf 0.25%) 10 ml 1X ONCE IJ ; Start 09/11/19 at 11:30; Stop 09/11/19 at 11:31; Status DC Multi-Ingredient Ointment (Hydrocerin Cream) 1 del PRN Q1HR PRN TP DRY SKIN / SCALING; Start 09/11/19 at 11:00; Stop 09/11/19 at 11:01; Status DC Multi-Ingredient Ointment (Hydrocerin Cream) 1 del BID TP Last administered on 09/15/19at 20:52; Start 09/11/19 at 21:00 Labetalol HCl (Trandate) 200 mg BID PO Last administered on 09/16/19 08:12; Start 09/11/19 at 21:00 Polyethylene Glycol (miraLAX PACKET) 17 gm DAILY PO Last administered on 09/15/19at 07:21; Start 09/12/19 at 10:00 Hydralazine HCl (Apresoline Inj) 10 mg PRN Q4HRS PRN IVP ELEVATED BP, SEE COMMENTS Last administered on 09/16/19at 08:11; Start 09/12/19 at 12:00 Furosemide (Lasix) 40 mg DAILY PO Last administered on 09/16/19 08:12; Start 09/12/19 at 12:30 Pantoprazole Sodium (Protonix) 40 mg DAILYAC PO Last administered on 09/15/19at 07:21; Start 09/12/19 at 15:00 Lidocaine/ Epinephrine (LIDOCAINE 1%-EPI 1:100,000 Multi-Dose) 20 ml STK-MED ONCE .ROUTE ; Start 09/13/19 at 12:12; Stop 09/13/19 at 12:12; Status DC Cefazolin Sodium (Ancef) 1 gm STK-MED ONCE IVP ; Start 09/13/19 at 12:32; Stop 09/13/19 at 12:33; Status DC Midazolam HCl (Versed) 2 mg STK-MED ONCE .ROUTE ; Start 09/13/19 at 12:36; Stop 09/13/19 at 12:36; Status DC Fentanyl Citrate (Fentanyl 2ml Vial) 100 mcg STK-MED ONCE .ROUTE ; Start 09/13/19 at 12:36; Stop 09/13/19 at 12:36; Status DC Midazolam HCl (Versed) 2 mg 1X ONCE IV Last administered on 09/13/19at 12:51; Start 09/13/19 at 13:00; Stop 09/13/19 at 13:01; Status DC Fentanyl Citrate (Fentanyl 2ml Vial) 100 mcg 1X ONCE IV Last administered on 09/13/19at 12:52; Start 09/13/19 at 13:00; Stop 09/13/19 at 13:01; Status DC Lidocaine/ Epinephrine (LIDOCAINE 1%-EPI 1:100,000 Multi-Dose) 20 ml 1X ONCE SQ Last administered on 09/13/19at 12:51; Start 09/13/19 at 13:00; Stop 09/13/19 at 13:01; Status DC Cefazolin Sodium (Ancef) 1 gm 1X ONCE IVP Last administered on 09/13/19at 12:51; Start 09/13/19 at 13:00; Stop 09/13/19 at 13:01; Status DC Sodium Chloride 1,000 ml @ 1,000 mls/hr Q1H PRN IV hypotension; Start 09/13/19 at 13:35; Stop 09/13/19 at 19:34; Status DC Sodium Chloride 1,000 ml @ 400 mls/hr Q2H30M PRN IV PATENCY; Start 09/13/19 at 13:35; Stop 09/14/19 at 01:35; Status DC Info (PHARMACY MONITORING -- do not chart) 1 each PRN DAILY PRN MC SEE COMMENTS; Start 09/13/19 at 13:45; Status UNV Info (PHARMACY MONITORING -- do not chart) 1 each PRN DAILY PRN MC SEE COMMENTS; Start 09/13/19 at 13:45 Lidocaine HCl (Buffered Lidocaine 1%) 3 ml 1X ONCE IJ ; Start 09/13/19 at 14:15; Stop 09/13/19 at 14:16; Status Cancel Midazolam HCl (Versed) 2 mg 1X ONCE IV ; Start 09/13/19 at 14:15; Stop 09/13/19 at 14:16; Status Cancel Fentanyl Citrate (Fentanyl 2ml Vial) 100 mcg 1X ONCE IV ; Start 09/13/19 at 14:15; Stop 09/13/19 at 14:16; Status Cancel Iodixanol (Visipaque 320) 100 ml 1X ONCE IART ; Start 09/13/19 at 14:15; Stop 09/13/19 at 14:16; Status Cancel Cefazolin Sodium (Ancef) 1 gm 1X ONCE IVP ; Start 09/13/19 at 14:15; Stop 09/13/19 at 14:16; Status Cancel Info (CONTRAST GIVEN -- Rx MONITORING) 1 each PRN DAILY PRN MC SEE COMMENTS; Start 09/13/19 at 14:30; Stop 09/15/19 at 14:29; Status Cancel Sodium Chloride 1,000 ml @ 1,000 mls/hr Q1H PRN IV hypotension; Start 09/14/19 at 09:00; Stop 09/14/19 at 14:59; Status DC Sodium Chloride 1,000 ml @ 400 mls/hr Q2H30M PRN IV PATENCY; Start 09/14/19 at 09:00; Stop 09/14/19 at 20:59; Status DC Info (PHARMACY MONITORING -- do not chart) 1 each PRN DAILY PRN MC SEE COMM ENTS; Start 09/14/19 at 11:15; Status UNV Info (PHARMACY MONITORING -- do not chart) 1 each PRN DAILY PRN MC SEE COMMENTS; Start 09/14/19 at 11:15; Status Cancel Acetaminophen (Tylenol) 650 mg PRN Q6HRS PRN PO MILD PAIN 1-3 Last administered on 09/15/19at 15:14; Start 09/14/19 at 16:45 Bisacodyl (Dulcolax Tab) 5 mg PRN DAILY PRN PO CONSTIPATION Last administered on 09/15/19at 13:39; Start 09/15/19 at 13:30 Active Scripts Active [Darbepoetin Emmanuel In Polysorbat] 60 MCG/0.3 ML Disp.syrin 60 Mcg SQ WEEKLYHS 30 Days Reported Protonix (Pantoprazole Sodium) 40 Mg Tablet.dr 40 Mg PO DAILYAC Multivitamins (Multivitamin) 1 Each Tablet 1 Tab PO DAILY Symbicort 160-4.5 Mcg Inhaler (Budesonide/Formoterol Fumarate) 10.2 Gm Hfa.aer.ad 1 Puff IH BID Spiriva (Tiotropium [place]) 18 Mcg Cap.w.dev 2 Inh IH DAILY Xarelto (Rivaroxaban) 10 Mg Tablet 10 Mg PO DAILY Phoslo (Calcium Acetate) 667 Mg Capsule 1 Cap PO BIDWMEALS K-Tab ER (Potassium Chloride) 20 Meq Tablet.er 20 Meq PO DAILY Vitals/I & O Vital Sign - Last 24 Hours 09/15/19 09/15/19 09/15/19 09/15/19 11:00 15:03 18:22 19:26 Temp 99.3 99.5 99.7 99.3 99.5 99.7 Pulse 85 88 91 Resp 18 16 18 B/P (MAP) 181/83 (115) 152/80 (104) 143/82 (102) Pulse Ox 96 96 95 O2 Delivery Room Air Room Air Room Air Room Air 09/15/19 09/15/19 09/16/19 09/16/19 20:53 22:38 02:50 06:48 Temp 98.2 99.0 98.8 98.2 99.0 98.8 Pulse 91 88 90 92 Resp 16 16 16 B/P (MAP) 143/82 117/60 (79) 179/91 (120) 190/98 (128) Pulse Ox 95 93 90 O2 Delivery Room Air Room Air Room Air 09/16/19 09/16/19 08:11 08:12 Pulse 92 92 B/P (MAP) 190/98 190/98 Intake and Output 09/15/19 09/15/19 09/16/19 15:00 23:00 07:00 Intake Total 960 ml 0 ml 240 ml Output Total 350 ml 250 ml Balance 960 ml -350 ml -10 ml Hemodynamically unstable?: No Is patient in severe pain?: Yes Is NPO status required?: No FAITH ADDISON MD Sep 16, 2019 09:34
[2019-09-16] MEDS ORDERED: DIALYSIS PATIENT. MC PRN ×2 (11:15)
--- NOTE | 2019-09-16 11:56 | NUR ---
SS following up with discharge planning. Pt accepted at [facility], ; fax [phone]. [facility] needing recent PT/OT notes for request for insurance authorization. Requesting that PT/OT see pt today. SS received phone contact from [employer], ; fax [phone], reporting that records have been received and they are working on confirmed chair time for pt. Pt's RN notified. SS will continue to follow for discharge planning.
[2019-09-16] MEDS ORDERED: BISACODYL 5 MG TABLET.DR. PO ONE (12:00)
[2019-09-16] MEDS ORDERED: POLYETHYLENE GLYCOL 3350 17 GM PACKET. PO PRN (12:00)
--- NOTE | 2019-09-16 12:00 | PDOC ---
Subjective: Subjective: Says she has fibroids that cause constipation. Objective: Objective: No bleeding per nurse. Vital Signs: Vital Signs Date Time Temp Pulse Resp B/P (MAP) Pulse Ox O2 Delivery O2 Flow Rate FiO2 09/16/19 08:12 92 190/98 09/16/19 08:00 Room Air 2.0 09/16/19 06:48 98.8 16 90 98.8 Labs: Laboratory Tests Test 09/16/19 04:35 White Blood Count 5.1 x10^3/uL Red Blood Count 2.98 x10^6/uL Hemoglobin 8.6 g/dL Hematocrit 26.9 % Mean Corpuscular Volume 90 fL Mean Corpuscular Hemoglobin 29 pg Mean Corpuscular Hemoglobin Concent 32 g/dL Red Cell Distribution Width 18.0 % Platelet Count 112 x10^3/uL Neutrophils (%) (Auto) 75 % Lymphocytes (%) (Auto) 10 % Monocytes (%) (Auto) 13 % Eosinophils (%) (Auto) 2 % Basophils (%) (Auto) 0 % Neutrophils # (Auto) 3.9 x10^3/uL Lymphocytes # (Auto) 0.5 x10^3/uL Monocytes # (Auto) 0.7 x10^3/uL Eosinophils # (Auto) 0.1 x10^3/uL Basophils # (Auto) 0.0 x10^3/uL Sodium Level 140 mmol/L Potassium Level 4.4 mmol/L Chloride Level 103 mmol/L Carbon Dioxide Level 31 mmol/L Anion Gap 6 Blood Urea Nitrogen 28 mg/dL Creatinine 2.2 mg/dL Estimated GFR (Cockcroft-Gault) 27.6 Glucose Level 86 mg/dL Calcium Level 8.7 mg/dL PE: GEN: dialyzing LUNGS: CTAB HEART: RRR ABD: NAsoft, some discomfort/fullness LLQ NEURO/PSYCH: A & O 3 A/P: Right knee injury, ESRD, HTN ACD, GERD, constipation - no records received re: recent 'scopes w/ Dr. Ortiz -- Treat constipation, continue PPI, plan for outpt scopes w/ Dr. Cutler. Hemodynamically unstable?: No Is patient in severe pain?: No Is NPO status required?: No JAVON BLANCO Sep 16, 2019 12:00
--- NOTE | 2019-09-16 12:39 | PDOC ---
SUBJECTIVE ROS Stable ,seen on HD, no complaints OBJECTIVE Vital Signs Vital Signs Date Time Temp Pulse Resp B/P (MAP) Pulse Ox O2 Delivery O2 Flow Rate FiO2 09/16/19 08:12 92 190/98 09/16/19 08:00 Room Air 2.0 09/16/19 06:48 98.8 16 90 98.8 I & 0 Intake and Output 09/16/19 07:00 Intake Total 1200 ml Output Total 600 ml Balance 600 ml Intake Oral 1200 ml Output Urine Total 600 ml PHYSICAL EXAM Physical Exam General: No acute distress HEENT: On 02 by NC , 100% O2 sats Neck Supple Lungs: Clear to auscultation, Non labored Heart: Regular rate, Normal S1, Normal S2, systolic murmur + Abdomen: Soft, No tenderness Extremities: LE edema 2-3 + Skin: No rash Neuro: Grossly normal Psych/Mental Status: Mental status NL, Mood NL DIAGNOSIS/ASSESSMENT Assessment & Plan New Onset ESRD - Initiated on HD 09/13/19 Urinary retention +, has a reid placed ,Hospitalized last year x 2 , Significant recurrent edema Seen on HD, 3 rd treatment today, tolerating well, continue as ordered Dw DRn [facility] Tunneled [facility]DC .Awaiting chair time CKD stage 4 - has been following with us HyperNa - resolved Urinary retention- 300+ this am Reid placed CHF-prob Diastolic Requd IV lasix Drip at last hospitalizations, currently asymptomatic, Atrial fibrillation. s/p cardiac Cath 06/07, Normal Membranous Nephropathy Dx in post Bx Proteinuria at Dx was 8 gm, improved most recent Pr/Cr <200 holding due to worsening renal function SLE- Use to follow with Rheumatology (Dr Hill) ,was on Imuran Currently only on Hydroxychloroquine Not seen for long time due to the financial constraints HTN- antihypertensives Renal Doppler - No Doppler evidence of greater than 60% stenosis within the renal arteries. Anemia-Follows with Dr. Baez as OP, On [facility] COMMENT/RELEVANT DATA Meds Current Medications Medications (Trade) Dose Ordered Sig/Blaine Start Time Stop Time Status Last Admin Dose Admin Acetaminophen (Tylenol) 650 mg PRN Q6HRS PRN 09/14/19 16:45 09/15/19 15:14 650 MG Bisacodyl (Dulcolax Tab) 10 mg 1X ONCE 09/16/19 12:00 09/16/19 12:02 DC Bupivacaine HCl (Sensorcaine-Mpf 0.25%) 10 ml 1X ONCE 09/11/19 11:30 09/11/19 11:31 DC Calcium Gluconate (Calcium Gluconate) 1,000 mg 1X ONCE 09/10/19 23:45 09/10/19 23:46 DC 09/10/19 23:59 1,000 MG Cefazolin Sodium (Ancef) 1 gm 1X ONCE 09/13/19 14:15 09/13/19 14:16 Cancel Darbepoetin Emmanuel (ARANESP for DIALYSIS PTS) 60 mcg WEEKLYHS 09/11/19 21:00 09/11/19 20:47 60 MCG Dextrose (Dextrose 50%-Water Syringe) 25 gm 1X ONCE 09/10/19 23:45 09/10/19 23:46 DC 09/10/19 23:57 25 GM Diclofenac Sodium (Voltaren) 1 del BID 09/11/19 12:00 09/15/19 20:53 1 DEL Fentanyl Citrate (Fentanyl 2ml Vial) 100 mcg 1X ONCE 09/13/19 14:15 09/13/19 14:16 Cancel Furosemide (Lasix) 40 mg DAILY 09/12/19 12:30 09/16/19 08:12 40 MG Heparin Sodium (Porcine) (Heparin Sodium) 1,600 unit PRN Q6HRS PRN 09/10/19 23:45 09/11/19 16:30 DC Heparin Sodium/ Dextrose 250 ml @ 0 mls/hr CONT PRN 09/10/19 23:45 09/11/19 10:46 DC 09/11/19 00:14 7.56 MLS/HR Hydralazine HCl (Apresoline Inj) 10 mg PRN Q4HRS PRN 09/12/19 12:00 09/16/19 08:11 10 MG Info (Anti-Coagulation Monitoring By Pharmacy) 1 each PRN DAILY PRN 09/11/19 08:15 09/11/19 16:30 DC Info (CONTRAST GIVEN -- Rx MONITORING) 1 each PRN DAILY PRN 09/13/19 14:30 09/15/19 14:29 Cancel Info (PHARMACY MONITORING -- do not chart) 1 each PRN DAILY PRN 09/16/19 11:15 09/16/19 11:11 DC Insulin Human Regular (HumuLIN R VIAL) 10 unit 1X ONCE 09/10/19 23:45 09/10/19 23:46 DC 09/11/19 00:16 10 UNIT Iodixanol (Visipaque 320) 100 ml 1X ONCE 09/13/19 14:15 09/13/19 14:16 Cancel Labetalol HCl (Normodyne Iv Push) 10 mg 1X ONCE 09/10/19 23:45 09/10/19 23:46 DC 09/10/19 22:30 10 MG Labetalol HCl (Trandate) 200 mg BID 09/11/19 21:00 09/16/19 08:12 200 MG Lidocaine HCl (Buffered Lidocaine 1%) 3 ml 1X ONCE 09/13/19 14:15 09/13/19 14:16 Cancel Lidocaine/ Epinephrine (LIDOCAINE 1%-EPI 1:100,000 Multi-Dose) 20 ml 1X ONCE 09/13/19 13:00 09/13/19 13:01 DC 09/13/19 12:51 12 ML Methylprednisolone Acetate (DEPO-Medrol 40MG VIAL) 40 mg 1X ONCE 09/11/19 11:30 09/11/19 11:31 DC Midazolam HCl (Versed) 2 mg 1X ONCE 09/13/19 14:15 09/13/19 14:16 Cancel Multi-Ingredient Ointment (Hydrocerin Cream) 1 del BID 09/11/19 21:00 09/15/19 20:52 1 DEL Nitroglycerin (Nitrostat) 0.4 mg PRN Q5MIN PRN 09/10/19 23:45 09/11/19 23:44 DC Ondansetron HCl (Zofran) 4 mg PRN Q8HRS PRN 09/10/19 23:45 09/11/19 23:44 DC Pantoprazole Sodium (Protonix) 40 mg DAILYAC 09/12/19 15:00 09/15/19 07:21 40 MG Polyethylene Glycol (miraLAX PACKET) 17 gm PRN DAILY PRN 09/16/19 12:00 Sodium Chloride 1,000 ml @ 400 mls/hr Q2H30M PRN 09/16/19 08:00 09/16/19 19:59 Lab Laboratory Tests Test 09/16/19 04:35 White Blood Count 5.1 x10^3/uL (4.0-11.0) Red Blood Count 2.98 x10^6/uL (3.50-5.40) Hemoglobin 8.6 g/dL (12.0-15.5) Hematocrit 26.9 % (36.0-47.0) Mean Corpuscular Volume 90 fL (79-100) Mean Corpuscular Hemoglobin 29 pg (25-35) Mean Corpuscular Hemoglobin Concent 32 g/dL (31-37) Red Cell Distribution Width 18.0 % (11.5-14.5) Platelet Count 112 x10^3/uL (140-400) Neutrophils (%) (Auto) 75 % (31-73) Lymphocytes (%) (Auto) 10 % (24-48) Monocytes (%) (Auto) 13 % (0-9) Eosinophils (%) (Auto) 2 % (0-3) Basophils (%) (Auto) 0 % (0-3) Neutrophils # (Auto) 3.9 x10^3/uL (1.8-7.7) Lymphocytes # (Auto) 0.5 x10^3/uL (1.0-4.8) Monocytes # (Auto) 0.7 x10^3/uL (0.0-1.1) Eosinophils # (Auto) 0.1 x10^3/uL (0.0-0.7) Basophils # (Auto) 0.0 x10^3/uL (0.0-0.2) Sodium Level 140 mmol/L (136-145) Potassium Level 4.4 mmol/L (3.5-5.1) Chloride Level 103 mmol/L (98-107) Carbon Dioxide Level 31 mmol/L (21-32) Anion Gap 6 (6-14) Blood Urea Nitrogen 28 mg/dL (7-20) Creatinine 2.2 mg/dL (0.6-1.0) Estimated GFR (Cockcroft-Gault) 27.6 Glucose Level 86 mg/dL (70-99) Calcium Level 8.7 mg/dL (8.5-10.1) Results All relevant outside records, renal labs, imaging studies, telemetry/EKG's were reviewed. SHEILA CREWS MD Sep 16, 2019 12:39
[2019-09-16] MEDS: PANTOPRAZOLE 40 MG TABLET.DR. PO SCH (13:57)
[2019-09-16] MEDS: DICLOFENAC SODIUM 1% TOPICAL GEL 100GM TUBE. TP SCH ×2 (13:57→20:09)
[2019-09-16] MEDS: MINERAL OIL/PETROLATUM TOPICAL CREAM 113GM JAR. TP SCH ×2 (13:58→20:08)
[2019-09-16 14:14] VITALS: BP 107/66
--- NOTE | 2019-09-16 15:17 | PDOC ---
PROGRESS NOTES Chief Complaint Chief Complaint Acute on chronic systolic and diastolic heart failure Traumatic mechanical fall: right knee effusion with possible hemarthrosis RIYA ATN sprained right knee PAFIB: maintaining SR Anemia Lupus Membranous nephropathy Proteinuria Azotemia Deconditioning Pain Weakness History of Present Illness History of Present Illness 09/16/2019 Patient sitting in chair in no acute distress. She has tolerated her dialysis well. MRI no longer needed symptoms as her pain seems to be resolving and her knee trauma is resolving as well the swelling. Patient denies any headache no blurred vision or chest pain no palpitations no shortness of breath has been worse. Plan of care sprain detail all concerns address to the best my abilities Patient seen and examined Chart reviewed Discussed with RN We are still awaiting chair time for dialysis Anticoagulation is on hold as Dr. Mcnamara is planning on injecting her knee if the MRI doesn't show anything serious Patient seen and examined Currently getting dialyzed (this is her second day of new dialysis) Discussed with Dr. Marcos to We are awaiting an MRI of the knee Discussed with RN Chart reviewed Patient seen and examined She is going for dialysis catheter placement today We'll start hemodialysis later today Discussed with RN Discussed with case management Chart reviewed 09/12/19 Pt seen and examined. Pt was resting in NAD during meeting and awoke for examination. Pt was pleasant and conversant. Pt denies f/c/n/v. Pt claims to feel weaker and more lethargic than normal DW nurse regarding anemia. Pt's chart reviewed. Vitals Vitals Vital Signs Date Time Temp Pulse Resp B/P (MAP) Pulse Ox O2 Delivery O2 Flow Rate FiO2 09/16/19 14:14 98.8 92 16 107/66 (80) 94 Room Air 98.8 09/16/19 08:00 2.0 Physical Exam General: Alert, Oriented X3, Cooperative, No acute distress Heart: Regular rate (SR), Normal S1, Normal S2, Other (4/6 systolic murmur to LLS border; S4) Lungs: Other Abdomen: Soft, No tenderness Extremities: No cyanosis, Other (2-3+ bilateral LE pitting edema) Skin: No breakdown, No significant lesion Labs LABS Laboratory Tests Test 09/16/19 04:35 White Blood Count 5.1 x10^3/uL (4.0-11.0) Red Blood Count 2.98 x10^6/uL (3.50-5.40) Hemoglobin 8.6 g/dL (12.0-15.5) Hematocrit 26.9 % (36.0-47.0) Mean Corpuscular Volume 90 fL (79-100) Mean Corpuscular Hemoglobin 29 pg (25-35) Mean Corpuscular Hemoglobin Concent 32 g/dL (31-37) Red Cell Distribution Width 18.0 % (11.5-14.5) Platelet Count 112 x10^3/uL (140-400) Neutrophils (%) (Auto) 75 % (31-73) Lymphocytes (%) (Auto) 10 % (24-48) Monocytes (%) (Auto) 13 % (0-9) Eosinophils (%) (Auto) 2 % (0-3) Basophils (%) (Auto) 0 % (0-3) Neutrophils # (Auto) 3.9 x10^3/uL (1.8-7.7) Lymphocytes # (Auto) 0.5 x10^3/uL (1.0-4.8) Monocytes # (Auto) 0.7 x10^3/uL (0.0-1.1) Eosinophils # (Auto) 0.1 x10^3/uL (0.0-0.7) Basophils # (Auto) 0.0 x10^3/uL (0.0-0.2) Sodium Level 140 mmol/L (136-145) Potassium Level 4.4 mmol/L (3.5-5.1) Chloride Level 103 mmol/L (98-107) Carbon Dioxide Level 31 mmol/L (21-32) Anion Gap 6 (6-14) Blood Urea Nitrogen 28 mg/dL (7-20) Creatinine 2.2 mg/dL (0.6-1.0) Estimated GFR (Cockcroft-Gault) 27.6 Glucose Level 86 mg/dL (70-99) Calcium Level 8.7 mg/dL (8.5-10.1) Assessment and Plan Assessmemt and Plan Problems Medical Problems: (1) Accelerated hypertension Status: Acute (2) CKD (chronic kidney disease) Status: Acute (3) Fall Status: Acute (4) Hypothermia Status: Acute Comment Review of Relevant I have reviewed the following items gregorio (where applicable) has been applied. Labs Laboratory Tests Test 09/15/19 04:00 09/16/19 04:35 White Blood Count 4.8 x10^3/uL (4.0-11.0) 5.1 x10^3/uL (4.0-11.0) Red Blood Count 3.02 x10^6/uL (3.50-5.40) 2.98 x10^6/uL (3.50-5.40) Hemoglobin 8.7 g/dL (12.0-15.5) 8.6 g/dL (12.0-15.5) Hematocrit 27.1 % (36.0-47.0) 26.9 % (36.0-47.0) Mean Corpuscular Volume 90 fL (79-100) 90 fL (79-100) Mean Corpuscular Hemoglobin 29 pg (25-35) 29 pg (25-35) Mean Corpuscular Hemoglobin Concent 32 g/dL (31-37) 32 g/dL (31-37) Red Cell Distribution Width 17.9 % (11.5-14.5) 18.0 % (11.5-14.5) Platelet Count 113 x10^3/uL (140-400) 112 x10^3/uL (140-400) Neutrophils (%) (Auto) 72 % (31-73) 75 % (31-73) Lymphocytes (%) (Auto) 14 % (24-48) 10 % (24-48) Monocytes (%) (Auto) 12 % (0-9) 13 % (0-9) Eosinophils (%) (Auto) 2 % (0-3) 2 % (0-3) Basophils (%) (Auto) 0 % (0-3) 0 % (0-3) Neutrophils # (Auto) 3.5 x10^3/uL (1.8-7.7) 3.9 x10^3/uL (1.8-7.7) Lymphocytes # (Auto) 0.7 x10^3/uL (1.0-4.8) 0.5 x10^3/uL (1.0-4.8) Monocytes # (Auto) 0.6 x10^3/uL (0.0-1.1) 0.7 x10^3/uL (0.0-1.1) Eosinophils # (Auto) 0.1 x10^3/uL (0.0-0.7) 0.1 x10^3/uL (0.0-0.7) Basophils # (Auto) 0.0 x10^3/uL (0.0-0.2) 0.0 x10^3/uL (0.0-0.2) Sodium Level 139 mmol/L (136-145) 140 mmol/L (136-145) Potassium Level 4.2 mmol/L (3.5-5.1) 4.4 mmol/L (3.5-5.1) Chloride Level 103 mmol/L (98-107) 103 mmol/L (98-107) Carbon Dioxide Level 31 mmol/L (21-32) 31 mmol/L (21-32) Anion Gap 5 (6-14) 6 (6-14) Blood Urea Nitrogen 21 mg/dL (7-20) 28 mg/dL (7-20) Creatinine 1.8 mg/dL (0.6-1.0) 2.2 mg/dL (0.6-1.0) Estimated GFR (Cockcroft-Gault) 34.8 27.6 Glucose Level 89 mg/dL (70-99) 86 mg/dL (70-99) Calcium Level 8.4 mg/dL (8.5-10.1) 8.7 mg/dL (8.5-10.1) Laboratory Tests Test 09/16/19 04:35 White Blood Count 5.1 x10^3/uL (4.0-11.0) Red Blood Count 2.98 x10^6/uL (3.50-5.40) Hemoglobin 8.6 g/dL (12.0-15.5) Hematocrit 26.9 % (36.0-47.0) Mean Corpuscular Volume 90 fL (79-100) Mean Corpuscular Hemoglobin 29 pg (25-35) Mean Corpuscular Hemoglobin Concent 32 g/dL (31-37) Red Cell Distribution Width 18.0 % (11.5-14.5) Platelet Count 112 x10^3/uL (140-400) Neutrophils (%) (Auto) 75 % (31-73) Lymphocytes (%) (Auto) 10 % (24-48) Monocytes (%) (Auto) 13 % (0-9) Eosinophils (%) (Auto) 2 % (0-3) Basophils (%) (Auto) 0 % (0-3) Neutrophils # (Auto) 3.9 x10^3/uL (1.8-7.7) Lymphocytes # (Auto) 0.5 x10^3/uL (1.0-4.8) Monocytes # (Auto) 0.7 x10^3/uL (0.0-1.1) Eosinophils # (Auto) 0.1 x10^3/uL (0.0-0.7) Basophils # (Auto) 0.0 x10^3/uL (0.0-0.2) Sodium Level 140 mmol/L (136-145) Potassium Level 4.4 mmol/L (3.5-5.1) Chloride Level 103 mmol/L (98-107) Carbon Dioxide Level 31 mmol/L (21-32) Anion Gap 6 (6-14) Blood Urea Nitrogen 28 mg/dL (7-20) Creatinine 2.2 mg/dL (0.6-1.0) Estimated GFR (Cockcroft-Gault) 27.6 Glucose Level 86 mg/dL (70-99) Calcium Level 8.7 mg/dL (8.5-10.1) Medications Current Medications Labetalol HCl (Normodyne Iv Push) 10 mg 1X ONCE IVP Last administered on 09/10/19at 21:38; Start 09/10/19 at 21:30; Stop 09/10/19 at 21:31; Status DC Dextrose (Dextrose 50%-Water Syringe) 25 gm STK-MED ONCE IV ; Start 09/10/19 at 21:37; Stop 09/10/19 at 21:37; Status DC Dextrose (Dextrose 50%-Water Syringe) 25 gm 1X ONCE IV Last administered on 09/10/19at 21:44; Start 09/10/19 at 21:45; Stop 09/10/19 at 21:46; Status DC Sodium Chloride 1,000 ml @ 1,000 mls/hr Q1H IV Last administered on 09/10/19at 22:40; Start 09/10/19 at 22:15; Stop 09/10/19 at 23:14; Status DC Labetalol HCl (Normodyne Iv Push) 10 mg 1X ONCE IVP ; Start 09/10/19 at 23:45; Stop 09/10/19 at 23:46; Status UNV Heparin Sodium/ Dextrose 250 ml @ 0 mls/hr CONT PRN IV PER PROTOCOL Last administered on 09/11/19at 00:14; Start 09/10/19 at 23:45; Stop 09/11/19 at 10:46; Status DC Heparin Sodium (Porcine) (Heparin Sodium) 1,600 unit PRN Q6HRS PRN IV FOR UFH LEVEL LESS THAN 0.2; Start 09/10/19 at 23:45; Stop 09/11/19 at 16:30; Status DC Ondansetron HCl (Zofran) 4 mg PRN Q8HRS PRN IV NAUSEA/VOMITING; Start 09/10/19 at 23:45; Stop 09/11/19 at 23:44; Status DC Acetaminophen (Tylenol) 650 mg PRN Q4HRS PRN PO FEVER; Start 09/10/19 at 23:45; Stop 09/11/19 at 23:44; Status DC Nitroglycerin (Nitrostat) 0.4 mg PRN Q5MIN PRN SL CHEST PAIN; Start 09/10/19 at 23:45; Stop 09/11/19 at 23:44; Status DC Calcium Gluconate (Calcium Gluconate) 1,000 mg 1X ONCE IVP Last administered on 09/10/19at 23:59; Start 09/10/19 at 23:45; Stop 09/10/19 at 23:46; Status DC Dextrose (Dextrose 50%-Water Syringe) 25 gm 1X ONCE IV Last administered on 09/10/19at 23:57; Start 09/10/19 at 23:45; Stop 09/10/19 at 23:46; Status DC Insulin Human Regular (HumuLIN R VIAL) 10 unit 1X ONCE IV Last administered on 09/11/19at 00:16; Start 09/10/19 at 23:45; Stop 09/10/19 at 23:46; Status DC Labetalol HCl (Normodyne Iv Push) 10 mg 1X ONCE IVP Last administered on 09/10/19at 22:30; Start 09/10/19 at 23:45; Stop 09/10/19 at 23:46; Status DC Hydralazine HCl (Apresoline Inj) 10 mg Q4HRS PRN IVP ELEVATED BP, SEE COMMENTS Last administered on 09/13/19at 08:33; Start 09/11/19 at 00:00; Stop 09/13/19 at 08:55; Status DC Info (Anti-Coagulation Monitoring By Pharmacy) 1 each PRN DAILY PRN MC SEE COMMENTS; Start 09/11/19 at 08:15; Stop 09/11/19 at 16:30; Status DC Furosemide (Lasix) 40 mg 1X ONCE IVP ; Start 09/11/19 at 11:30; Stop 09/11/19 at 11:31; Status Cancel Darbepoetin Emmanuel (ARANESP for DIALYSIS PTS) 60 mcg WEEKLYHS SQ Last administered on 09/11/19at 20:47; Start 09/11/19 at 21:00 Furosemide (Lasix) 60 mg 1X ONCE IVP Last administered on 09/11/19at 11:18; Start 09/11/19 at 11:00; Stop 09/11/19 at 11:01; Status DC Diclofenac Sodium (Voltaren) 1 del BID TP Last administered on 09/16/19at 13:57; Start 09/11/19 at 12:00 Methylprednisolone Acetate (DEPO-Medrol 40MG VIAL) 40 mg 1X ONCE IM ; Start 09/11/19 at 11:30; Stop 09/11/19 at 11:31; Status DC Bupivacaine HCl (Sensorcaine-Mpf 0.25%) 10 ml 1X ONCE IJ ; Start 09/11/19 at 11:30; Stop 09/11/19 at 11:31; Status DC Multi-Ingredient Ointment (Hydrocerin Cream) 1 del PRN Q1HR PRN TP DRY SKIN / SCALING; Start 09/11/19 at 11:00; Stop 09/11/19 at 11:01; Status DC Multi-Ingredient Ointment (Hydrocerin Cream) 1 del BID TP Last administered on 09/16/19at 13:58; Start 09/11/19 at 21:00 Labetalol HCl (Trandate) 200 mg BID PO Last administered on 09/16/19at 08:12; Start 09/11/19 at 21:00 Polyethylene Glycol (miraLAX PACKET) 17 gm DAILY PO Last administered on 09/15/19at 07:21; Start 09/12/19 at 10:00 Hydralazine HCl (Apresoline Inj) 10 mg PRN Q4HRS PRN IVP ELEVATED BP, SEE COMMENTS Last administered on 09/16/19at 08:11; Start 09/12/19 at 12:00 Furosemide (Lasix) 40 mg DAILY PO Last administered on 09/16/19at 08:12; Start 09/12/19 at 12:30 Pantoprazole Sodium (Protonix) 40 mg DAILYAC PO Last administered on 09/16/19at 13:57; Start 09/12/19 at 15:00 Lidocaine/ Epinephrine (LIDOCAINE 1%-EPI 1:100,000 Multi-Dose) 20 ml STK-MED ONCE .ROUTE ; Start 09/13/19 at 12:12; Stop 09/13/19 at 12:12; Status DC Cefazolin Sodium (Ancef) 1 gm STK-MED ONCE IVP ; Start 09/13/19 at 12:32; Stop 09/13/19 at 12:33; Status DC Midazolam HCl (Versed) 2 mg STK-MED ONCE .ROUTE ; Start 09/13/19 at 12:36; Stop 09/13/19 at 12:36; Status DC Fentanyl Citrate (Fentanyl 2ml Vial) 100 mcg STK-MED ONCE .ROUTE ; Start 09/13/19 at 12:36; Stop 09/13/19 at 12:36; Status DC Midazolam HCl (Versed) 2 mg 1X ONCE IV Last administered on 09/13/19at 12:51; Start 09/13/19 at 13:00; Stop 09/13/19 at 13:01; Status DC Fentanyl Citrate (Fentanyl 2ml Vial) 100 mcg 1X ONCE IV Last administered on 09/13/19at 12:52; Start 09/13/19 at 13:00; Stop 09/13/19 at 13:01; Status DC Lidocaine/ Epinephrine (LIDOCAINE 1%-EPI 1:100,000 Multi-Dose) 20 ml 1X ONCE SQ Last administered on 09/13/19at 12:51; Start 09/13/19 at 13:00; Stop 09/13/19 at 13:01; Status DC Cefazolin Sodium (Ancef) 1 gm 1X ONCE IVP Last administered on 09/13/19at 12:51; Start 09/13/19 at 13:00; Stop 09/13/19 at 13:01; Status DC Sodium Chloride 1,000 ml @ 1,000 mls/hr Q1H PRN IV hypotension; Start 09/13/19 at 13:35; Stop 09/13/19 at 19:34; Status DC Sodium Chloride 1,000 ml @ 400 mls/hr Q2H30M PRN IV PATENCY; Start 09/13/19 at 13:35; Stop 09/14/19 at 01:35; Status DC Info (PHARMACY MONITORING -- do not chart) 1 each PRN DAILY PRN MC SEE COMMENTS; Start 09/13/19 at 13:45; Status UNV Info (PHARMACY MONITORING -- do not chart) 1 each PRN DAILY PRN MC SEE COMMENTS; Start 09/13/19 at 13:45 Lidocaine HCl (Buffered Lidocaine 1%) 3 ml 1X ONCE IJ ; Start 09/13/19 at 14:15; Stop 09/13/19 at 14:16; Status Cancel Midazolam HCl (Versed) 2 mg 1X ONCE IV ; Start 09/13/19 at 14:15; Stop 09/13/19 at 14:16; Status Cancel Fentanyl Citrate (Fentanyl 2ml Vial) 100 mcg 1X ONCE IV ; Start 09/13/19 at 14:15; Stop 09/13/19 at 14:16; Status Cancel Iodixanol (Visipaque 320) 100 ml 1X ONCE IART ; Start 09/13/19 at 14:15; Stop 09/13/19 at 14:16; Status Cancel Cefazolin Sodium (Ancef) 1 gm 1X ONCE IVP ; Start 09/13/19 at 14:15; Stop 09/13/19 at 14:16; Status Cancel Info (CONTRAST GIVEN -- Rx MONITORING) 1 each PRN DAILY PRN MC SEE COMMENTS; Start 09/13/19 at 14:30; Stop 09/15/19 at 14:29; Status Cancel Sodium Chloride 1,000 ml @ 1,000 mls/hr Q1H PRN IV hypotension; Start 09/14/19 at 09:00; Stop 09/14/19 at 14:59; Status DC Sodium Chloride 1,000 ml @ 400 mls/hr Q2H30M PRN IV PATENCY; Start 09/14/19 at 09:00; Stop 09/14/19 at 20:59; Status DC Info (PHARMACY MONITORING -- do not chart) 1 each PRN DAILY PRN MC SEE COMMENTS; Start 09/14/19 at 11:15; Status UNV Info (PHARMACY MONITORING -- do not chart) 1 each PRN DAILY PRN MC SEE COMMENTS; Start 09/14/19 at 11:15; Status Cancel Acetaminophen (Tylenol) 650 mg PRN Q6HRS PRN PO MILD PAIN 1-3 Last administered on 09/15/19at 15:14; Start 09/14/19 at 16:45 Bisacodyl (Dulcolax Tab) 5 mg PRN DAILY PRN PO CONSTIPATION Last administered on 09/15/19at 13:39; Start 09/15/19 at 13:30 Sodium Chloride 1,000 ml @ 1,000 mls/hr Q1H PRN IV hypotension; Start 09/16/19 at 08:00; Stop 09/16/19 at 13:59; Status DC Sodium Chloride 1,000 ml @ 400 mls/hr Q2H30M PRN IV PATENCY; Start 09/16/19 at 08:00; Stop 09/16/19 at 19:59 Info (PHARMACY MONITORING -- do not chart) 1 each PRN DAILY PRN MC SEE COMMENTS; Start 09/16/19 at 11:15; Stop 09/16/19 at 11:11; Status DC Info (PHARMACY MONITORING -- do not chart) 1 each PRN DAILY PRN MC SEE COMMENTS; Start 09/16/19 at 11:15; Stop 09/16/19 at 11:11; Status DC Polyethylene Glycol (miraLAX PACKET) 17 gm DAILY PO Last administered on 09/16/19at 13:57; Start 09/16/19 at 13:00 Polyethylene Glycol (miraLAX PACKET) 17 gm PRN DAILY PRN PO CONSTIPATION; Start 09/16/19 at 12:00 Bisacodyl (Dulcolax Tab) 10 mg 1X ONCE PO Last administered on 09/16/19at 13:57; Start 09/16/19 at 12:00; Stop 09/16/19 at 12:02; Status DC Active Scripts Active [Darbepoetin Emmanuel In Polysorbat] 60 MCG/0.3 ML Disp.syrin 60 Mcg SQ WEEKLYHS 30 Days Reported Protonix (Pantoprazole Sodium) 40 Mg Tablet.dr 40 Mg PO DAILYAC Multivitamins (Multivitamin) 1 Each Tablet 1 Tab PO DAILY Symbicort 160-4.5 Mcg Inhaler (Budesonide/Formoterol Fumarate) 10.2 Gm Hfa.aer.ad 1 Puff IH BID Spiriva (Tiotropium [place]) 18 Mcg Cap.w.dev 2 Inh IH DAILY Xarelto (Rivaroxaban) 10 Mg Tablet 10 Mg PO DAILY Phoslo (Calcium Acetate) 667 Mg Capsule 1 Cap PO BIDWMEALS K-Tab ER (Potassium Chloride) 20 Meq Tablet.er 20 Meq PO DAILY Vitals/I & O Vital Sign - Last 24 Hours 09/15/19 09/15/19 09/15/19 09/15/19 18:22 19:26 20:53 22:38 Temp 99.7 98.2 99.7 98.2 Pulse 91 91 88 Resp 18 16 B/P (MAP) 143/82 (102) 143/82 117/60 (79) Pulse Ox 95 95 O2 Delivery Room Air Room Air Room Air 09/16/19 09/16/19 09/16/19 09/16/19 02:50 06:48 08:00 08:11 Temp 99.0 98.8 99.0 98.8 Pulse 90 92 92 Resp 16 16 B/P (MAP) 179/91 (120) 190/98 (128) 190/98 Pulse Ox 93 90 O2 Delivery Room Air Room Air Room Air O2 Flow Rate 2.0 09/16/19 09/16/19 08:12 14:14 Temp 98.8 98.8 Pulse 92 92 Resp 16 B/P (MAP) 190/98 107/66 (80) Pulse Ox 94 O2 Delivery Room Air Intake and Output 09/15/19 09/15/19 09/16/19 15:00 23:00 07:00 Intake Total 960 ml 0 ml 240 ml Output Total 350 ml 250 ml Balance 960 ml -350 ml -10 ml Hemodynamically unstable?: No Is patient in severe pain?: No Is NPO status required?: No JHONNY ROQUE MD Sep 16, 2019 15:17
[2019-09-16 19:10] VITALS: BP 186/80
[2019-09-16] MEDS: ACETAMINOPHEN 325 MG TABLET. PO PRN (19:17)
[2019-09-16 23:00] VITALS: BP 147/79
[2019-09-17 03:35] VITALS: BP 162/86
[2019-09-17 04:29] LABS: BASO % 0 % (0-3); EOS # 0.1 x10^3/uL (0.0-0.7); EOS % 1 % (0-3); HEMATOCRIT 26.3 % (36.0-47.0); HEMOGLOBIN 8.5 g/dL (12.0-15.5); LYMPH # 0.8 x10^3/uL (1.0-4.8); LYMPH % 18 % (24-48); MEAN CORPUSCULAR HEMOGLOBIN 29 pg (25-35); MEAN CORPUSCULAR HGB CONC 32 g/dL (31-37); MEAN CORPUSCULAR VOLUME 90 fL (79-100); MONO # 0.7 x10^3/uL (0.0-1.1); MONO % 16 % (0-9); NEUT # 2.9 x10^3/uL (1.8-7.7); NEUT % 65 % (31-73); PLATELET COUNT 109 x10^3/uL (140-400); RED BLOOD COUNT 2.92 x10^6/uL (3.50-5.40); RED CELL DISTRIBUTION WIDTH 17.9 % (11.5-14.5); WHITE BLOOD COUNT 4.5 x10^3/uL (4.0-11.0)
[2019-09-17 04:41] LABS: CALCIUM 8.6 mg/dL (8.5-10.1); GFR 30.9
[2019-09-17 07:00] VITALS: BP 147/78
[2019-09-17] MEDS: POLYETHYLENE GLYCOL 3350 17 GM PACKET. PO SCH ×3 (09:00→20:46)
[2019-09-17] MEDS: FUROSEMIDE 40 MG TABLET. PO SCH (09:23)
[2019-09-17] MEDS: PANTOPRAZOLE 40 MG TABLET.DR. PO SCH (09:23)
[2019-09-17] MEDS: LABETALOL HCL 200 MG TABLET PO SCH ×2 (09:23→20:45)
[2019-09-17] MEDS: MINERAL OIL/PETROLATUM TOPICAL CREAM 113GM JAR. TP SCH ×2 (09:24→20:45)
[2019-09-17] MEDS: DICLOFENAC SODIUM 1% TOPICAL GEL 100GM TUBE. TP SCH ×2 (09:24→20:44)
--- NOTE | 2019-09-17 09:43 | PDOC ---
Subjective: Subjective: Says no stools but then says someone told her she had "little poops" in brief during dialysis. Objective: Objective: D/w nurse - last stool 09/11, eating and passing gas, fever overnight. Vital Signs: Vital Signs Date Time Temp Pulse Resp B/P (MAP) Pulse Ox O2 Delivery O2 Flow Rate FiO2 09/17/19 09:23 82 147/78 09/17/19 08:00 Room Air 2.0 09/17/19 07:00 98.1 18 94 98.1 Labs: Laboratory Tests Test 09/17/19 03:45 White Blood Count 4.5 x10^3/uL Red Blood Count 2.92 x10^6/uL Hemoglobin 8.5 g/dL Hematocrit 26.3 % Mean Corpuscular Volume 90 fL Mean Corpuscular Hemoglobin 29 pg Mean Corpuscular Hemoglobin Concent 32 g/dL Red Cell Distribution Width 17.9 % Platelet Count 109 x10^3/uL Neutrophils (%) (Auto) 65 % Lymphocytes (%) (Auto) 18 % Monocytes (%) (Auto) 16 % Eosinophils (%) (Auto) 1 % Basophils (%) (Auto) 0 % Neutrophils # (Auto) 2.9 x10^3/uL Lymphocytes # (Auto) 0.8 x10^3/uL Monocytes # (Auto) 0.7 x10^3/uL Eosinophils # (Auto) 0.1 x10^3/uL Basophils # (Auto) 0.0 x10^3/uL Sodium Level 139 mmol/L Potassium Level 4.0 mmol/L Chloride Level 102 mmol/L Carbon Dioxide Level 31 mmol/L Anion Gap 6 Blood Urea Nitrogen 23 mg/dL Creatinine 2.0 mg/dL Estimated GFR (Cockcroft-Gault) 30.9 Glucose Level 90 mg/dL Calcium Level 8.6 mg/dL PE: GEN: NAD LUNGS: CTAB HEART: RRR ABD: NABS, S/ND/NT NEURO/PSYCH: A & O 3 A/P: Right knee injury, ESRD, HTN, fevers ACD, GERD, constipation -- Check KUB, try more aggressive constipation treatment. Hemodynamically unstable?: No Is patient in severe pain?: No Is NPO status required?: No JAVON BLANCO Sep 17, 2019 09:43
--- NOTE | 2019-09-17 10:12 | NUR ---
SS following up with discharge planning. SS received notification from [facility] that pt has confirmed chair time at [facility], ; fax [phone], on Monday, Monday, and Monday at 1500 with start date 09/18/2019. SS phoned and faxed updated clinical and PT/OT notes to [facility], ; fax [phone]. SS currently awaiting insurance determination at this time and will proceed accordingly. Pt's RN notified.
[2019-09-17] MEDS: LUBIPROSTONE 24 MCG CAPSULE PO SCH ×2 (10:18→18:35)
[2019-09-17 10:35] VITALS: BP 119/63
--- NOTE | 2019-09-17 11:06 | PDOC ---
SUBJECTIVE ROS Stable ,seen on HD, no complaints OBJECTIVE Vital Signs Vital Signs Date Time Temp Pulse Resp B/P (MAP) Pulse Ox O2 Delivery O2 Flow Rate FiO2 09/17/19 10:35 98.8 88 18 119/63 (81) 94 Room Air 98.8 09/17/19 08:00 2.0 I & 0 Intake and Output 09/17/19 07:00 Intake Total 1020 ml Output Total 350 ml Balance 670 ml Intake Oral 1020 ml Output Urine Total 350 ml PHYSICAL EXAM Physical Exam General: No acute distress HEENT: On 02 by NC , 100% O2 sats Neck Supple Lungs: Clear to auscultation, Non labored Heart: Regular rate, Normal S1, Normal S2, systolic murmur + Abdomen: Soft, No tenderness Extremities: LE edema 2-3 + Skin: No rash Neuro: Grossly normal Psych/Mental Status: Mental status NL, Mood NL DIAGNOSIS/ASSESSMENT Assessment & Plan DIAGNOSIS/ASSESSMENT Assessment & Plan New Onset ESRD - Initiated on HD 09/13/19, Urinary retention +, has a reid placed ,Hospitalized last year x 2 , Significant recurrent edema 3 rd treatment 2/3 Access Tunneled HDC .Awaiting chair time CKD stage 4 - has been following with us HyperNa - resolved Urinary retention- 300+ ,Reid placed Recommend Voiding trial prior to DC and Bladder scan to r/o Urinary retention If Persistsnt may hav e to be dced with Reid and follow up with UROLOGY defer to primary dw RN CHF-prob Diastolic Requd IV lasix Drip at last hospitalizations, currently asymptomatic, Atrial fibrillation. s/p cardiac Cath 06/07, Normal Membranous Nephropathy Dx in post Bx Proteinuria at Dx was 8 gm, improved most recent Pr/Cr <200 holding due to worsening renal function SLE- Use to follow with Rheumatology (Dr Hill) ,was on Imuran Currently only on Hydroxychloroquine Not seen for long time due to the financial constraints HTN- antihypertensives Renal Doppler - No Doppler evidence of greater than 60% stenosis within the renal arteries. Anemia-Follows with Dr. Baez as OP, On [facility] COMMENT/RELEVANT DATA Meds Current Medications Medications (Trade) Dose Ordered Sig/Blaine Start Time Stop Time Status Last Admin Dose Admin Acetaminophen (Tylenol) 650 mg PRN Q6HRS PRN 09/14/19 16:45 09/16/19 19:17 650 MG Bisacodyl (Dulcolax Tab) 10 mg 1X ONCE 09/16/19 12:00 09/16/19 12:02 DC 09/16/19 13:57 10 MG Bupivacaine HCl (Sensorcaine-Mpf 0.25%) 10 ml 1X ONCE 09/11/19 11:30 09/11/19 11:31 DC Calcium Gluconate (Calcium Gluconate) 1,000 mg 1X ONCE 09/10/19 23:45 09/10/19 23:46 DC 09/10/19 23:59 1,000 MG Cefazolin Sodium (Ancef) 1 gm 1X ONCE 09/13/19 14:15 09/13/19 14:16 Cancel Darbepoetin Emmanuel (ARANESP for DIALYSIS PTS) 60 mcg WEEKLYHS 09/11/19 21:00 09/11/19 20:47 60 MCG Dextrose (Dextrose 50%-Water Syringe) 25 gm 1X ONCE 09/10/19 23:45 09/10/19 23:46 DC 09/10/19 23:57 25 GM Diclofenac Sodium (Voltaren) 1 del BID 09/11/19 12:00 09/17/19 09:24 1 DEL Fentanyl Citrate (Fentanyl 2ml Vial) 100 mcg 1X ONCE 09/13/19 14:15 09/13/19 14:16 Cancel Furosemide (Lasix) 40 mg DAILY 09/12/19 12:30 09/17/19 09:23 40 MG Heparin Sodium (Porcine) (Heparin Sodium) 1,600 unit PRN Q6HRS PRN 09/10/19 23:45 09/11/19 16:30 DC Heparin Sodium/ Dextrose 250 ml @ 0 mls/hr CONT PRN 09/10/19 23:45 09/11/19 10:46 DC 09/11/19 00:14 7.56 MLS/HR Hydralazine HCl (Apresoline Inj) 10 mg PRN Q4HRS PRN 09/12/19 12:00 09/16/19 08:11 10 MG Info (Anti-Coagulation Monitoring By Pharmacy) 1 each PRN DAILY PRN 09/11/19 08:15 09/11/19 16:30 DC Info (CONTRAST GIVEN -- Rx MONITORING) 1 each PRN DAILY PRN 09/13/19 14:30 09/15/19 14:29 Cancel Info (PHARMACY MONITORING -- do not chart) 1 each PRN DAILY PRN 09/16/19 11:15 09/16/19 11:11 DC Insulin Human Regular (HumuLIN R VIAL) 10 unit 1X ONCE 09/10/19 23:45 09/10/19 23:46 DC 09/11/19 00:16 10 UNIT Iodixanol (Visipaque 320) 100 ml 1X ONCE 09/13/19 14:15 09/13/19 14:16 Cancel Labetalol HCl (Normodyne Iv Push) 10 mg 1X ONCE 09/10/19 23:45 09/10/19 23:46 DC 09/10/19 22:30 10 MG Labetalol HCl (Trandate) 200 mg BID 09/11/19 21:00 09/17/19 09:23 200 MG Lidocaine HCl (Buffered Lidocaine 1%) 3 ml 1X ONCE 09/13/19 14:15 09/13/19 14:16 Cancel Lidocaine/ Epinephrine (LIDOCAINE 1%-EPI 1:100,000 Multi-Dose) 20 ml 1X ONCE 09/13/19 13:00 09/13/19 13:01 DC 09/13/19 12:51 12 ML Lubiprostone (Amitiza) 24 mcg BIDWMEALS 09/17/19 10:00 09/17/19 10:18 24 MCG Methylprednisolone Acetate (DEPO-Medrol 40MG VIAL) 40 mg 1X ONCE 09/11/19 11:30 09/11/19 11:31 DC Midazolam HCl (Versed) 2 mg 1X ONCE 09/13/19 14:15 09/13/19 14:16 Cancel Multi-Ingredient Ointment (Hydrocerin Cream) 1 del BID 09/11/19 21:00 09/17/19 09:24 1 DEL Nitroglycerin (Nitrostat) 0.4 mg PRN Q5MIN PRN 09/10/19 23:45 09/11/19 23:44 DC Ondansetron HCl (Zofran) 4 mg PRN Q8HRS PRN 09/10/19 23:45 09/11/19 23:44 DC Pantoprazole Sodium (Protonix) 40 mg DAILYAC 09/12/19 15:00 09/17/19 09:23 40 MG Polyethylene Glycol (miraLAX PACKET) 17 gm BID 09/17/19 21:00 Sodium Chloride 1,000 ml @ 400 mls/hr Q2H30M PRN 09/16/19 08:00 09/16/19 19:59 DC Lab Laboratory Tests Test 09/17/19 03:45 White Blood Count 4.5 x10^3/uL (4.0-11.0) Red Blood Count 2.92 x10^6/uL (3.50-5.40) Hemoglobin 8.5 g/dL (12.0-15.5) Hematocrit 26.3 % (36.0-47.0) Mean Corpuscular Volume 90 fL (79-100) Mean Corpuscular Hemoglobin 29 pg (25-35) Mean Corpuscular Hemoglobin Concent 32 g/dL (31-37) Red Cell Distribution Width 17.9 % (11.5-14.5) Platelet Count 109 x10^3/uL (140-400) Neutrophils (%) (Auto) 65 % (31-73) Lymphocytes (%) (Auto) 18 % (24-48) Monocytes (%) (Auto) 16 % (0-9) Eosinophils (%) (Auto) 1 % (0-3) Basophils (%) (Auto) 0 % (0-3) Neutrophils # (Auto) 2.9 x10^3/uL (1.8-7.7) Lymphocytes # (Auto) 0.8 x10^3/uL (1.0-4.8) Monocytes # (Auto) 0.7 x10^3/uL (0.0-1.1) Eosinophils # (Auto) 0.1 x10^3/uL (0.0-0.7) Basophils # (Auto) 0.0 x10^3/uL (0.0-0.2) Sodium Level 139 mmol/L (136-145) Potassium Level 4.0 mmol/L (3.5-5.1) Chloride Level 102 mmol/L (98-107) Carbon Dioxide Level 31 mmol/L (21-32) Anion Gap 6 (6-14) Blood Urea Nitrogen 23 mg/dL (7-20) Creatinine 2.0 mg/dL (0.6-1.0) Estimated GFR (Cockcroft-Gault) 30.9 Glucose Level 90 mg/dL (70-99) Calcium Level 8.6 mg/dL (8.5-10.1) Results All relevant outside records, renal labs, imaging studies, telemetry/EKG's were reviewed. SHEILA CREWS MD Sep 17, 2019 11:06
--- NOTE | 2019-09-17 14:38 | RAD ---
MR of the right knee HISTORY: Pain and swelling, recent injury. TECHNIQUE: Routine multiplanar sequences are obtained. FINDINGS: Degenerative tear of the medial meniscus. No evidence of lateral meniscal tear. Anterior and posterior cruciate ligaments are intact. Medial collateral ligament intact. Iliotibial band unremarkable. Fibular collateral ligament demonstrates mild proximal thickening and signal, likely degenerative, no acute tear. Popliteus tendon attachment also mildly thickened and irregular, likely degenerative without acute tear. Quadriceps and patellar tendon are intact. No acute retinacular disruption. Large complex joint effusion with synovitis. Diffuse edema within the infrapatellar fat. Generalized muscle atrophy. Diffuse soft tissue and muscle edema. Fracture of the posterior tibial plateau at the posterior cruciate ligament insertion, without elevation or displacement. Mild marrow edema/contusion around the fracture. Broad osteochondral defect of the patella at the median ridge and medial facet, altogether measuring about 2.5 cm wide by 1.0 cm height. Most concerning for an osteochondral fracture, possibly related to acute trauma but age is indeterminate. A displaced osteochondral fragment is considered, but is not visualized. There is severe chondromalacia of the adjacent patella, and possibly this is due to chronic degenerative change with secondary erosive or cystic degeneration. Mild degenerative change and chondromalacia at medial and lateral joint compartments. IMPRESSION: 1. Nondisplaced avulsion type fracture of the posterior tibial plateau, at the posterior cruciate ligament attachment. Nose evidence of fragmented elevation or displacement. The posterior cruciate ligament itself is intact. 2. Osteochondral defect of the patella is also most likely due to a posttraumatic fracture. The appearance suggests some displaced osteochondral tissue but these fragments are not visualized. 3. Medial meniscal tear. Electronically signed by: Blayne Heard MD (09/17/2019 2:34 PM) [id number]
[2019-09-17 15:00] VITALS: BP 155/79
[2019-09-17] MEDS ORDERED: methylPREDNISolone ACETATE 80 MG/ML VIAL. INJ ONE (15:45)
[2019-09-17] MEDS ORDERED: BUPIVACAINE MPF 0.5% 10 ML VIAL. IJ ONE (15:45)
--- NOTE | 2019-09-17 15:58 | PDOC ---
PROGRESS NOTES Subjective Subjective She admits continued right knee joint pain. Objective Objective Vital Signs Date Time Temp Pulse Resp B/P (MAP) Pulse Ox O2 Delivery O2 Flow Rate FiO2 09/17/19 15:00 98.9 87 18 155/79 (104) 95 Room Air 98.9 09/17/19 08:00 2.0 Intake and Output 09/17/19 07:00 Intake Total 1020 ml Output Total 350 ml Balance 670 ml Intake Oral 1020 ml Output Urine Total 350 ml Physical Exam Physical Exam Mri scan of right knee joint revealed non displace posterior tibial plateau fracture and avulsion fracture over articular surface of right patella and medial meniscus tear. She continues with painfully limited knee joint ROM with effusion and mobility limitations. Assessment Assessment Problems Medical Problems: (1) Accelerated hypertension Status: Acute (2) CKD (chronic kidney disease) Status: Acute (3) Fall Status: Acute (4) Hypothermia Status: Acute Plan Plan of Care I spoke to and agree with plans of aspiration and steroid injection to her knee and to SNF when medically stable. Comment Review of Relevant I have reviewed the following items gregorio (where applicable) has been applied. Labs Laboratory Tests Test 09/16/19 04:35 09/17/19 03:45 White Blood Count 5.1 x10^3/uL (4.0-11.0) 4.5 x10^3/uL (4.0-11.0) Red Blood Count 2.98 x10^6/uL (3.50-5.40) 2.92 x10^6/uL (3.50-5.40) Hemoglobin 8.6 g/dL (12.0-15.5) 8.5 g/dL (12.0-15.5) Hematocrit 26.9 % (36.0-47.0) 26.3 % (36.0-47.0) Mean Corpuscular Volume 90 fL (79-100) 90 fL (79-100) Mean Corpuscular Hemoglobin 29 pg (25-35) 29 pg (25-35) Mean Corpuscular Hemoglobin Concent 32 g/dL (31-37) 32 g/dL (31-37) Red Cell Distribution Width 18.0 % (11.5-14.5) 17.9 % (11.5-14.5) Platelet Count 112 x10^3/uL (140-400) 109 x10^3/uL (140-400) Neutrophils (%) (Auto) 75 % (31-73) 65 % (31-73) Lymphocytes (%) (Auto) 10 % (24-48) 18 % (24-48) Monocytes (%) (Auto) 13 % (0-9) 16 % (0-9) Eosinophils (%) (Auto) 2 % (0-3) 1 % (0-3) Basophils (%) (Auto) 0 % (0-3) 0 % (0-3) Neutrophils # (Auto) 3.9 x10^3/uL (1.8-7.7) 2.9 x10^3/uL (1.8-7.7) Lymphocytes # (Auto) 0.5 x10^3/uL (1.0-4.8) 0.8 x10^3/uL (1.0-4.8) Monocytes # (Auto) 0.7 x10^3/uL (0.0-1.1) 0.7 x10^3/uL (0.0-1.1) Eosinophils # (Auto) 0.1 x10^3/uL (0.0-0.7) 0.1 x10^3/uL (0.0-0.7) Basophils # (Auto) 0.0 x10^3/uL (0.0-0.2) 0.0 x10^3/uL (0.0-0.2) Sodium Level 140 mmol/L (136-145) 139 mmol/L (136-145) Potassium Level 4.4 mmol/L (3.5-5.1) 4.0 mmol/L (3.5-5.1) Chloride Level 103 mmol/L (98-107) 102 mmol/L (98-107) Carbon Dioxide Level 31 mmol/L (21-32) 31 mmol/L (21-32) Anion Gap 6 (6-14) 6 (6-14) Blood Urea Nitrogen 28 mg/dL (7-20) 23 mg/dL (7-20) Creatinine 2.2 mg/dL (0.6-1.0) 2.0 mg/dL (0.6-1.0) Estimated GFR (Cockcroft-Gault) 27.6 30.9 Glucose Level 86 mg/dL (70-99) 90 mg/dL (70-99) Calcium Level 8.7 mg/dL (8.5-10.1) 8.6 mg/dL (8.5-10.1) Laboratory Tests Test 09/17/19 03:45 White Blood Count 4.5 x10^3/uL (4.0-11.0) Red Blood Count 2.92 x10^6/uL (3.50-5.40) Hemoglobin 8.5 g/dL (12.0-15.5) Hematocrit 26.3 % (36.0-47.0) Mean Corpuscular Volume 90 fL (79-100) Mean Corpuscular Hemoglobin 29 pg (25-35) Mean Corpuscular Hemoglobin Concent 32 g/dL (31-37) Red Cell Distribution Width 17.9 % (11.5-14.5) Platelet Count 109 x10^3/uL (140-400) Neutrophils (%) (Auto) 65 % (31-73) Lymphocytes (%) (Auto) 18 % (24-48) Monocytes (%) (Auto) 16 % (0-9) Eosinophils (%) (Auto) 1 % (0-3) Basophils (%) (Auto) 0 % (0-3) Neutrophils # (Auto) 2.9 x10^3/uL (1.8-7.7) Lymphocytes # (Auto) 0.8 x10^3/uL (1.0-4.8) Monocytes # (Auto) 0.7 x10^3/uL (0.0-1.1) Eosinophils # (Auto) 0.1 x10^3/uL (0.0-0.7) Basophils # (Auto) 0.0 x10^3/uL (0.0-0.2) Sodium Level 139 mmol/L (136-145) Potassium Level 4.0 mmol/L (3.5-5.1) Chloride Level 102 mmol/L (98-107) Carbon Dioxide Level 31 mmol/L (21-32) Anion Gap 6 (6-14) Blood Urea Nitrogen 23 mg/dL (7-20) Creatinine 2.0 mg/dL (0.6-1.0) Estimated GFR (Cockcroft-Gault) 30.9 Glucose Level 90 mg/dL (70-99) Calcium Level 8.6 mg/dL (8.5-10.1) Medications Current Medications Labetalol HCl (Normodyne Iv Push) 10 mg 1X ONCE IVP Last administered on 09/10/19at 21:38; Start 09/10/19 at 21:30; Stop 09/10/19 at 21:31; Status DC Dextrose (Dextrose 50%-Water Syringe) 25 gm STK-MED ONCE IV ; Start 09/10/19 at 21:37; Stop 09/10/19 at 21:37; Status DC Dextrose (Dextrose 50%-Water Syringe) 25 gm 1X ONCE IV Last administered on 09/10/19at 21:44; Start 09/10/19 at 21:45; Stop 09/10/19 at 21:46; Status DC Sodium Chloride 1,000 ml @ 1,000 mls/hr Q1H IV Last administered on 09/10/19at 22:40; Start 09/10/19 at 22:15; Stop 09/10/19 at 23:14; Status DC Labetalol HCl (Normodyne Iv Push) 10 mg 1X ONCE IVP ; Start 09/10/19 at 23:45; Stop 09/10/19 at 23:46; Status UNV Heparin Sodium/ Dextrose 250 ml @ 0 mls/hr CONT PRN IV PER PROTOCOL Last administered on 09/11/19at 00:14; Start 09/10/19 at 23:45; Stop 09/11/19 at 10:46; Status DC Heparin Sodium (Porcine) (Heparin Sodium) 1,600 unit PRN Q6HRS PRN IV FOR UFH LEVEL LESS THAN 0.2; Start 09/10/19 at 23:45; Stop 09/11/19 at 16:30; Status DC Ondansetron HCl (Zofran) 4 mg PRN Q8HRS PRN IV NAUSEA/VOMITING; Start 09/10/19 at 23:45; Stop 09/11/19 at 23:44; Status DC Acetaminophen (Tylenol) 650 mg PRN Q4HRS PRN PO FEVER; Start 09/10/19 at 23:45; Stop 09/11/19 at 23:44; Status DC Nitroglycerin (Nitrostat) 0.4 mg PRN Q5MIN PRN SL CHEST PAIN; Start 09/10/19 at 23:45; Stop 09/11/19 at 23:44; Status DC Calcium Gluconate (Calcium Gluconate) 1,000 mg 1X ONCE IVP Last administered on 09/10/19at 23:59; Start 09/10/19 at 23:45; Stop 09/10/19 at 23:46; Status DC Dextrose (Dextrose 50%-Water Syringe) 25 gm 1X ONCE IV Last administered on 09/10/19at 23:57; Start 09/10/19 at 23:45; Stop 09/10/19 at 23:46; Status DC Insulin Human Regular (HumuLIN R VIAL) 10 unit 1X ONCE IV Last administered on 09/11/19at 00:16; Start 09/10/19 at 23:45; Stop 09/10/19 at 23:46; Status DC Labetalol HCl (Normodyne Iv Push) 10 mg 1X ONCE IVP Last administered on 09/10/19at 22:30; Start 09/10/19 at 23:45; Stop 09/10/19 at 23:46; Status DC Hydralazine HCl (Apresoline Inj) 10 mg Q4HRS PRN IVP ELEVATED BP, SEE COMMENTS Last administered on 09/13/19at 08:33; Start 09/11/19 at 00:00; Stop 09/13/19 at 08:55; Status DC Info (Anti-Coagulation Monitoring By Pharmacy) 1 each PRN DAILY PRN MC SEE COMMENTS; Start 09/11/19 at 08:15; Stop 09/11/19 at 16:30; Status DC Furosemide (Lasix) 40 mg 1X ONCE IVP ; Start 09/11/19 at 11:30; Stop 09/11/19 at 11:31; Status Cancel Darbepoetin Emmanuel (ARANESP for DIALYSIS PTS) 60 mcg WEEKLYHS SQ Last administered on 09/11/19at 20:47; Start 09/11/19 at 21:00 Furosemide (Lasix) 60 mg 1X ONCE IVP Last administered on 09/11/19at 11:18; Start 09/11/19 at 11:00; Stop 09/11/19 at 11:01; Status DC Diclofenac Sodium (Voltaren) 1 del BID TP Last administered on 09/17/19at 09:24; Start 09/11/19 at 12:00 Methylprednisolone Acetate (DEPO-Medrol 40MG VIAL) 40 mg 1X ONCE IM ; Start 09/11/19 at 11:30; Stop 09/11/19 at 11:31; Status DC Bupivacaine HCl (Sensorcaine-Mpf 0.25%) 10 ml 1X ONCE IJ ; Start 09/11/19 at 11:30; Stop 09/11/19 at 11:31; Status DC Multi-Ingredient Ointment (Hydrocerin Cream) 1 del PRN Q1HR PRN TP DRY SKIN / SCALING; Start 09/11/19 at 11:00; Stop 09/11/19 at 11:01; Status DC Multi-Ingredient Ointment (Hydrocerin Cream) 1 del BID TP Last administered on 09/17/19at 09:24; Start 09/11/19 at 21:00 Labetalol HCl (Trandate) 200 mg BID PO Last administered on 09/17/19at 09:23; Start 09/11/19 at 21:00 Polyethylene Glycol (miraLAX PACKET) 17 gm DAILY PO Last administered on 09/17/19at 09:24; Start 09/12/19 at 10:00; Stop 09/17/19 at 09:44; Status DC Hydralazine HCl (Apresoline Inj) 10 mg PRN Q4HRS PRN IVP ELEVATED BP, SEE COMMENTS Last administered on 09/16/19at 08:11; Start 09/12/19 at 12:00 Furosemide (Lasix) 40 mg DAILY PO Last administered on 09/17/19at 09:23; Start 09/12/19 at 12:30 Pantoprazole Sodium (Protonix) 40 mg DAILYAC PO Last administered on 09/17/19at 09:23; Start 09/12/19 at 15:00 Lidocaine/ Epinephrine (LIDOCAINE 1%-EPI 1:100,000 Multi-Dose) 20 ml STK-MED ONCE .ROUTE ; Start 09/13/19 at 12:12; Stop 09/13/19 at 12:12; Status DC Cefazolin Sodium (Ancef) 1 gm STK-MED ONCE IVP ; Start 09/13/19 at 12:32; Stop 09/13/19 at 12:33; Status DC Midazolam HCl (Versed) 2 mg STK-MED ONCE .ROUTE ; Start 09/13/19 at 12:36; Stop 09/13/19 at 12:36; Status DC Fentanyl Citrate (Fentanyl 2ml Vial) 100 mcg STK-MED ONCE .ROUTE ; Start 09/13/19 at 12:36; Stop 09/13/19 at 12:36; Status DC Midazolam HCl (Versed) 2 mg 1X ONCE IV Last administered on 09/13/19at 12:51; Start 09/13/19 at 13:00; Stop 09/13/19 at 13:01; Status DC Fentanyl Citrate (Fentanyl 2ml Vial) 100 mcg 1X ONCE IV Last administered on 09/13/19at 12:52; Start 09/13/19 at 13:00; Stop 09/13/19 at 13:01; Status DC Lidocaine/ Epinephrine (LIDOCAINE 1%-EPI 1:100,000 Multi-Dose) 20 ml 1X ONCE SQ Last administered on 09/13/19at 12:51; Start 09/13/19 at 13:00; Stop 09/13/19 at 13:01; Status DC Cefazolin Sodium (Ancef) 1 gm 1X ONCE IVP Last administered on 09/13/19at 12:51; Start 09/13/19 at 13:00; Stop 09/13/19 at 13:01; Status DC Sodium Chloride 1,000 ml @ 1,000 mls/hr Q1H PRN IV hypotension; Start 09/13/19 at 13:35; Stop 09/13/19 at 19:34; Status DC Sodium Chloride 1,000 ml @ 400 mls/hr Q2H30M PRN IV PATENCY; Start 09/13/19 at 13:35; Stop 09/14/19 at 01:35; Status DC Info (PHARMACY MONITORING -- do not chart) 1 each PRN DAILY PRN MC SEE COMMENTS; Start 09/13/19 at 13:45; Status UNV Info (PHARMACY MONITORING -- do not chart) 1 each PRN DAILY PRN MC SEE COMMENTS; Start 09/13/19 at 13:45 Lidocaine HCl (Buffered Lidocaine 1%) 3 ml 1X ONCE IJ ; Start 09/13/19 at 14:15; Stop 09/13/19 at 14:16; Status Cancel Midazolam HCl (Versed) 2 mg 1X ONCE IV ; Start 09/13/19 at 14:15; Stop 09/13/19 at 14:16; Status Cancel Fentanyl Citrate (Fentanyl 2ml Vial) 100 mcg 1X ONCE IV ; Start 09/13/19 at 14:15; Stop 09/13/19 at 14:16; Status Cancel Iodixanol (Visipaque 320) 100 ml 1X ONCE IART ; Start 09/13/19 at 14:15; Stop 09/13/19 at 14:16; Status Cancel Cefazolin Sodium (Ancef) 1 gm 1X ONCE IVP ; Start 09/13/19 at 14:15; Stop 09/13/19 at 14:16; Status Cancel Info (CONTRAST GIVEN -- Rx MONITORING) 1 each PRN DAILY PRN MC SEE COMMENTS; Start 09/13/19 at 14:30; Stop 09/15/19 at 14:29; Status Cancel Sodium Chloride 1,000 ml @ 1,000 mls/hr Q1H PRN IV hypotension; Start 09/14/19 at 09:00; Stop 09/14/19 at 14:59; Status DC Sodium Chloride 1,000 ml @ 400 mls/hr Q2H30M PRN IV PATENCY; Start 09/14/19 at 09:00; Stop 09/14/19 at 20:59; Status DC Info (PHARMACY MONITORING -- do not chart) 1 each PRN DAILY PRN MC SEE COMMENTS; Start 09/14/19 at 11:15; Status UNV Info (PHARMACY MONITORING -- do not chart) 1 each PRN DAILY PRN MC SEE COMMENTS; Start 09/14/19 at 11:15; Status Cancel Acetaminophen (Tylenol) 650 mg PRN Q6HRS PRN PO MILD PAIN 1-3 Last administered on 09/16/19at 19:17; Start 09/14/19 at 16:45 Bisacodyl (Dulcolax Tab) 5 mg PRN DAILY PRN PO CONSTIPATION Last administered on 09/15/19at 13:39; Start 09/15/19 at 13:30 Sodium Chloride 1,000 ml @ 1,000 mls/hr Q1H PRN IV hypotension; Start 09/16/19 at 08:00; Stop 09/16/19 at 13:59; Status DC Sodium Chloride 1,000 ml @ 400 mls/hr Q2H30M PRN IV PATENCY; Start 09/16/19 at 08:00; Stop 09/16/19 at 19:59; Status DC Info (PHARMACY MONITORING -- do not chart) 1 each PRN DAILY PRN MC SEE COMMENTS; Start 09/16/19 at 11:15; Stop 09/16/19 at 11:11; Status DC Info (PHARMACY MONITORING -- do not chart) 1 each PRN DAILY PRN MC SEE COMMENTS; Start 09/16/19 at 11:15; Stop 09/16/19 at 11:11; Status DC Polyethylene Glycol (miraLAX PACKET) 17 gm DAILY PO Last administered on 09/16/19at 13:57; Start 09/16/19 at 13:00; Stop 09/17/19 at 09:44; Status DC Polyethylene Glycol (miraLAX PACKET) 17 gm PRN DAILY PRN PO CONSTIPATION; Start 09/16/19 at 12:00; Stop 09/17/19 at 09:45; Status DC Bisacodyl (Dulcolax Tab) 10 mg 1X ONCE PO Last administered on 09/16/19at 13:57; Start 09/16/19 at 12:00; Stop 09/16/19 at 12:02; Status DC Polyethylene Glycol (miraLAX PACKET) 17 gm BID PO ; Start 09/17/19 at 21:00 Lubiprostone (Amitiza) 24 mcg BIDWMEALS PO Last administered on 09/17/19at 10:18; Start 09/17/19 at 10:00 Active Scripts Active [Darbepoetin Emmanuel In Polysorbat] 60 MCG/0.3 ML Disp.syrin 60 Mcg SQ WEEKLYHS 30 Days Reported Protonix (Pantoprazole Sodium) 40 Mg Tablet.dr 40 Mg PO DAILYAC Multivitamins (Multivitamin) 1 Each Tablet 1 Tab PO DAILY Symbicort 160-4.5 Mcg Inhaler (Budesonide/Formoterol Fumarate) 10.2 Gm Hfa.aer.ad 1 Puff IH BID Spiriva (Tiotropium [place]) 18 Mcg Cap.w.dev 2 Inh IH DAILY Xarelto (Rivaroxaban) 10 Mg Tablet 10 Mg PO DAILY Phoslo (Calcium Acetate) 667 Mg Capsule 1 Cap PO BIDWMEALS K-Tab ER (Potassium Chloride) 20 Meq Tablet.er 20 Meq PO DAILY Vitals/I & O Vital Sign - Last 24 Hours 09/16/19 09/16/19 09/16/19 09/16/19 19:10 19:32 20:09 23:00 Temp 101.3 99.3 101.3 99.3 Pulse 98 98 90 Resp 20 18 B/P (MAP) 186/80 (115) 186/80 147/79 (101) Pulse Ox 93 93 O2 Delivery Room Air Room Air Room Air 09/17/19 09/17/19 09/17/19 09/17/19 03:35 07:00 08:00 09:23 Temp 98.0 98.1 98.0 98.1 Pulse 81 82 82 Resp 18 18 B/P (MAP) 162/86 (111) 147/78 (101) 147/78 Pulse Ox 95 94 O2 Delivery Room Air Room Air Room Air O2 Flow Rate 2.0 09/17/19 09/17/19 10:35 15:00 Temp 98.8 98.9 98.8 98.9 Pulse 88 87 Resp 18 18 B/P (MAP) 119/63 (81) 155/79 (104) Pulse Ox 94 95 O2 Delivery Room Air Room Air Intake and Output 09/16/19 09/16/19 09/17/19 15:00 23:00 07:00 Intake Total 360 ml 560 ml 100 ml Output Total 250 ml 100 ml Balance 360 ml 310 ml 0 ml Hemodynamically unstable?: No Is patient in severe pain?: No Is NPO status required?: No FAITH ADDISON MD Sep 17, 2019 15:58
--- NOTE | 2019-09-17 17:28 | RAD ---
PROCEDURE: KUB STUDY DATE: 09/17/2019 CLINICAL INDICATION / HISTORY: Constipation. TECHNIQUE: Single AP image of the abdomen was obtained. COMPARISON: None FINDINGS: The lung bases are not included. A nonobstructive bowel gas pattern is present. Formed stool in the left abdomen and in the pelvis is present in the large bowel. There are at least 3 calcified masses in the midline pelvis that could represent calcified leiomyoma. No acute osseous abnormality. IVC filter is present at the L2-L3 level. IMPRESSION: Moderate stool throughout the large bowel with pelvic calcifications suggestive of calcified fibroids. Electronically signed by: Damon Merino MD (09/17/2019 5:26 PM) [facility]
[2019-09-17] MEDS ORDERED: MORPHINE SULFATE 2 MG/ML VIAL. IV PRN (17:45)
[2019-09-17] MEDS ORDERED: traMADol 50 MG TABLET PO PRN (17:45)
[2019-09-17 19:20] VITALS: BP 159/84
--- NOTE | 2019-09-17 21:49 | PDOC ---
PROGRESS NOTES Chief Complaint Chief Complaint Acute on chronic systolic and diastolic heart failure Traumatic mechanical fall: MRI findings discussed with orthopedic remediation bioanalytics consultant, meniscal tear with effusion RIYA ATN sprained right knee PAFIB: maintaining SR Anemia Lupus Membranous nephropathy Proteinuria Azotemia Deconditioning Pain Weakness Plan: knee arthrocentesis as per remediation bioanalytics consultant continue with dialysis in the am and then discharge to SNF continue current medications History of Present Illness History of Present Illness 09/16/2019 Patient sitting in chair in no acute distress. She has tolerated her dialysis well. MRI no longer needed symptoms as her pain seems to be resolving and her knee trauma is resolving as well the swelling. Patient denies any headache no blurred vision or chest pain no palpitations no shortness of breath has been worse. Plan of care sprain detail all concerns address to the best my abilities Patient seen and examined Chart reviewed Discussed with RN We are still awaiting chair time for dialysis Anticoagulation is on hold as Dr. Mcnamara is planning on injecting her knee if the MRI doesn't show anything serious Patient seen and examined Currently getting dialyzed (this is her second day of new dialysis) Discussed with Dr. Marcos to We are awaiting an MRI of the knee Discussed with RN Chart reviewed [id number] Patient seen and examined She is going for dialysis catheter placement today We'll start hemodialysis later today Discussed with RN Discussed with case management Chart reviewed 09/12/19 Pt seen and examined. Pt was resting in NAD during meeting and awoke for examination. Pt was pleasant and conversant. Pt denies f/c/n/v. Pt claims to feel weaker and more lethargic than normal DW nurse regarding anemia. Pt's chart reviewed. Vitals Vitals Vital Signs Date Time Temp Pulse Resp B/P (MAP) Pulse Ox O2 Delivery O2 Flow Rate FiO2 09/17/19 20:45 91 159/84 09/17/19 19:20 99.4 20 93 Room Air 99.4 09/17/19 08:00 2.0 Physical Exam General: Alert, Oriented X3, Cooperative, No acute distress Heart: Regular rate (SR), Normal S1, Normal S2, Other (4/6 systolic murmur to LLS border; S4) Lungs: Other Abdomen: Soft, No tenderness Extremities: No cyanosis, Other (2-3+ bilateral LE pitting edema) Skin: No breakdown, No significant lesion Labs LABS Laboratory Tests Test 09/17/19 03:45 White Blood Count 4.5 x10^3/uL (4.0-11.0) Red Blood Count 2.92 x10^6/uL (3.50-5.40) Hemoglobin 8.5 g/dL (12.0-15.5) Hematocrit 26.3 % (36.0-47.0) Mean Corpuscular Volume 90 fL (79-100) Mean Corpuscular Hemoglobin 29 pg (25-35) Mean Corpuscular Hemoglobin Concent 32 g/dL (31-37) Red Cell Distribution Width 17.9 % (11.5-14.5) Platelet Count 109 x10^3/uL (140-400) Neutrophils (%) (Auto) 65 % (31-73) Lymphocytes (%) (Auto) 18 % (24-48) Monocytes (%) (Auto) 16 % (0-9) Eosinophils (%) (Auto) 1 % (0-3) Basophils (%) (Auto) 0 % (0-3) Neutrophils # (Auto) 2.9 x10^3/uL (1.8-7.7) Lymphocytes # (Auto) 0.8 x10^3/uL (1.0-4.8) Monocytes # (Auto) 0.7 x10^3/uL (0.0-1.1) Eosinophils # (Auto) 0.1 x10^3/uL (0.0-0.7) Basophils # (Auto) 0.0 x10^3/uL (0.0-0.2) Sodium Level 139 mmol/L (136-145) Potassium Level 4.0 mmol/L (3.5-5.1) Chloride Level 102 mmol/L (98-107) Carbon Dioxide Level 31 mmol/L (21-32) Anion Gap 6 (6-14) Blood Urea Nitrogen 23 mg/dL (7-20) Creatinine 2.0 mg/dL (0.6-1.0) Estimated GFR (Cockcroft-Gault) 30.9 Glucose Level 90 mg/dL (70-99) Calcium Level 8.6 mg/dL (8.5-10.1) Review of Systems Review of Systems positive for knee pain otherfwise 10 point review of system is negative. Assessment and Plan Assessmemt and Plan Problems Medical Problems: (1) Accelerated hypertension Status: Acute (2) CKD (chronic kidney disease) Status: Acute (3) Fall Status: Acute (4) Hypothermia Status: Acute Comment Review of Relevant I have reviewed the following items gregorio (where applicable) has been applied. Labs Laboratory Tests Test 09/16/19 04:35 09/17/19 03:45 White Blood Count 5.1 x10^3/uL (4.0-11.0) 4.5 x10^3/uL (4.0-11.0) Red Blood Count 2.98 x10^6/uL (3.50-5.40) 2.92 x10^6/uL (3.50-5.40) Hemoglobin 8.6 g/dL (12.0-15.5) 8.5 g/dL (12.0-15.5) Hematocrit 26.9 % (36.0-47.0) 26.3 % (36.0-47.0) Mean Corpuscular Volume 90 fL (79-100) 90 fL (79-100) Mean Corpuscular Hemoglobin 29 pg (25-35) 29 pg (25-35) Mean Corpuscular Hemoglobin Concent 32 g/dL (31-37) 32 g/dL (31-37) Red Cell Distribution Width 18.0 % (11.5-14.5) 17.9 % (11.5-14.5) Platelet Count 112 x10^3/uL (140-400) 109 x10^3/uL (140-400) Neutrophils (%) (Auto) 75 % (31-73) 65 % (31-73) Lymphocytes (%) (Auto) 10 % (24-48) 18 % (24-48) Monocytes (%) (Auto) 13 % (0-9) 16 % (0-9) Eosinophils (%) (Auto) 2 % (0-3) 1 % (0-3) Basophils (%) (Auto) 0 % (0-3) 0 % (0-3) Neutrophils # (Auto) 3.9 x10^3/uL (1.8-7.7) 2.9 x10^3/uL (1.8-7.7) Lymphocytes # (Auto) 0.5 x10^3/uL (1.0-4.8) 0.8 x10^3/uL (1.0-4.8) Monocytes # (Auto) 0.7 x10^3/uL (0.0-1.1) 0.7 x10^3/uL (0.0-1.1) Eosinophils # (Auto) 0.1 x10^3/uL (0.0-0.7) 0.1 x10^3/uL (0.0-0.7) Basophils # (Auto) 0.0 x10^3/uL (0.0-0.2) 0.0 x10^3/uL (0.0-0.2) Sodium Level 140 mmol/L (136-145) 139 mmol/L (136-145) Potassium Level 4.4 mmol/L (3.5-5.1) 4.0 mmol/L (3.5-5.1) Chloride Level 103 mmol/L (98-107) 102 mmol/L (98-107) Carbon Dioxide Level 31 mmol/L (21-32) 31 mmol/L (21-32) Anion Gap 6 (6-14) 6 (6-14) Blood Urea Nitrogen 28 mg/dL (7-20) 23 mg/dL (7-20) Creatinine 2.2 mg/dL (0.6-1.0) 2.0 mg/dL (0.6-1.0) Estimated GFR (Cockcroft-Gault) 27.6 30.9 Glucose Level 86 mg/dL (70-99) 90 mg/dL (70-99) Calcium Level 8.7 mg/dL (8.5-10.1) 8.6 mg/dL (8.5-10.1) Laboratory Tests Test 09/17/19 03:45 White Blood Count 4.5 x10^3/uL (4.0-11.0) Red Blood Count 2.92 x10^6/uL (3.50-5.40) Hemoglobin 8.5 g/dL (12.0-15.5) Hematocrit 26.3 % (36.0-47.0) Mean Corpuscular Volume 90 fL (79-100) Mean Corpuscular Hemoglobin 29 pg (25-35) Mean Corpuscular Hemoglobin Concent 32 g/dL (31-37) Red Cell Distribution Width 17.9 % (11.5-14.5) Platelet Count 109 x10^3/uL (140-400) Neutrophils (%) (Auto) 65 % (31-73) Lymphocytes (%) (Auto) 18 % (24-48) Monocytes (%) (Auto) 16 % (0-9) Eosinophils (%) (Auto) 1 % (0-3) Basophils (%) (Auto) 0 % (0-3) Neutrophils # (Auto) 2.9 x10^3/uL (1.8-7.7) Lymphocytes # (Auto) 0.8 x10^3/uL (1.0-4.8) Monocytes # (Auto) 0.7 x10^3/uL (0.0-1.1) Eosinophils # (Auto) 0.1 x10^3/uL (0.0-0.7) Basophils # (Auto) 0.0 x10^3/uL (0.0-0.2) Sodium Level 139 mmol/L (136-145) Potassium Level 4.0 mmol/L (3.5-5.1) Chloride Level 102 mmol/L (98-107) Carbon Dioxide Level 31 mmol/L (21-32) Anion Gap 6 (6-14) Blood Urea Nitrogen 23 mg/dL (7-20) Creatinine 2.0 mg/dL (0.6-1.0) Estimated GFR (Cockcroft-Gault) 30.9 Glucose Level 90 mg/dL (70-99) Calcium Level 8.6 mg/dL (8.5-10.1) Medications Current Medications Labetalol HCl (Normodyne Iv Push) 10 mg 1X ONCE IVP Last administered on 09/10/19at 21:38; Start 09/10/19 at 21:30; Stop 09/10/19 at 21:31; Status DC Dextrose (Dextrose 50%-Water Syringe) 25 gm STK-MED ONCE IV ; Start 09/10/19 at 21:37; Stop 09/10/19 at 21:37; Status DC Dextrose (Dextrose 50%-Water Syringe) 25 gm 1X ONCE IV Last administered on 09/10/19at 21:44; Start 09/10/19 at 21:45; Stop 09/10/19 at 21:46; Status DC Sodium Chloride 1,000 ml @ 1,000 mls/hr Q1H IV Last administered on 09/10/19at 22:40; Start 09/10/19 at 22:15; Stop 09/10/19 at 23:14; Status DC Labetalol HCl (Normodyne Iv Push) 10 mg 1X ONCE IVP ; Start 09/10/19 at 23:45; Stop 09/10/19 at 23:46; Status UNV Heparin Sodium/ Dextrose 250 ml @ 0 mls/hr CONT PRN IV PER PROTOCOL Last administered on 09/11/19at 00:14; Start 09/10/19 at 23:45; Stop 09/11/19 at 10:46; Status DC Heparin Sodium (Porcine) (Heparin Sodium) 1,600 unit PRN Q6HRS PRN IV FOR UFH LEVEL LESS THAN 0.2; Start 09/10/19 at 23:45; Stop 09/11/19 at 16:30; Status DC Ondansetron HCl (Zofran) 4 mg PRN Q8HRS PRN IV NAUSEA/VOMITING; Start 09/10/19 at 23:45; Stop 09/11/19 at 23:44; Status DC Acetaminophen (Tylenol) 650 mg PRN Q4HRS PRN PO FEVER; Start 09/10/19 at 23:45; Stop 09/11/19 at 23:44; Status DC Nitroglycerin (Nitrostat) 0.4 mg PRN Q5MIN PRN SL CHEST PAIN; Start 09/10/19 at 23:45; Stop 09/11/19 at 23:44; Status DC Calcium Gluconate (Calcium Gluconate) 1,000 mg 1X ONCE IVP Last administered on 09/10/19at 23:59; Start 09/10/19 at 23:45; Stop 09/10/19 at 23:46; Status DC Dextrose (Dextrose 50%-Water Syringe) 25 gm 1X ONCE IV Last administered on 09/10/19at 23:57; Start 09/10/19 at 23:45; Stop 09/10/19 at 23:46; Status DC Insulin Human Regular (HumuLIN R VIAL) 10 unit 1X ONCE IV Last administered on 09/11/19at 00:16; Start 09/10/19 at 23:45; Stop 09/10/19 at 23:46; Status DC Labetalol HCl (Normodyne Iv Push) 10 mg 1X ONCE IVP Last administered on 09/10/19at 22:30; Start 09/10/19 at 23:45; Stop 09/10/19 at 23:46; Status DC Hydralazine HCl (Apresoline Inj) 10 mg Q4HRS PRN IVP ELEVATED BP, SEE COMMENTS Last administered on 09/13/19at 08:33; Start 09/11/19 at 00:00; Stop 09/13/19 at 08:55; Status DC Info (Anti-Coagulation Monitoring By Pharmacy) 1 each PRN DAILY PRN MC SEE COMMENTS; Start 09/11/19 at 08:15; Stop 09/11/19 at 16:30; Status DC Furosemide (Lasix) 40 mg 1X ONCE IVP ; Start 09/11/19 at 11:30; Stop 09/11/19 at 11:31; Status Cancel Darbepoetin Emmanuel (ARANESP for DIALYSIS PTS) 60 mcg WEEKLYHS SQ Last administered on 09/11/19at 20:47; Start 09/11/19 at 21:00 Furosemide (Lasix) 60 mg 1X ONCE IVP Last administered on 09/11/19at 11:18; Start 09/11/19 at 11:00; Stop 09/11/19 at 11:01; Status DC Diclofenac Sodium (Voltaren) 1 del BID TP Last administered on 09/17/19at 20:44; Start 09/11/19 at 12:00 Methylprednisolone Acetate (DEPO-Medrol 40MG VIAL) 40 mg 1X ONCE IM ; Start 09/11/19 at 11:30; Stop 09/11/19 at 11:31; Status DC Bupivacaine HCl (Sensorcaine-Mpf 0.25%) 10 ml 1X ONCE IJ ; Start 09/11/19 at 11:30; Stop 09/11/19 at 11:31; Status DC Multi-Ingredient Ointment (Hydrocerin Cream) 1 del PRN Q1HR PRN TP DRY SKIN / SCALING; Start 09/11/19 at 11:00; Stop 09/11/19 at 11:01; Status DC Multi-Ingredient Ointment (Hydrocerin Cream) 1 del BID TP Last administered on 09/17/19at 20:45; Start 09/11/19 at 21:00 Labetalol HCl (Trandate) 200 mg BID PO Last administered on 09/17/19at 20:45; Start 09/11/19 at 21:00 Polyethylene Glycol (miraLAX PACKET) 17 gm DAILY PO Last administered on 09/17/19at 09:24; Start 09/12/19 at 10:00; Stop 09/17/19 at 09:44; Status DC Hydralazine HCl (Apresoline Inj) 10 mg PRN Q4HRS PRN IVP ELEVATED BP, SEE COMMENTS Last administered on 09/16/19at 08:11; Start 09/12/19 at 12:00 Furosemide (Lasix) 40 mg DAILY PO Last administered on 09/17/19 09:23; Start 09/12/19 at 12:30 Pantoprazole Sodium (Protonix) 40 mg DAILYAC PO Last administered on 09/17/19 09:23; Start 09/12/19 at 15:00 Lidocaine/ Epinephrine (LIDOCAINE 1%-EPI 1:100,000 Multi-Dose) 20 ml STK-MED ONCE .ROUTE ; Start 09/13/19 at 12:12; Stop 09/13/19 at 12:12; Status DC Cefazolin Sodium (Ancef) 1 gm STK-MED ONCE IVP ; Start 09/13/19 at 12:32; Stop 09/13/19 at 12:33; Status DC Midazolam HCl (Versed) 2 mg STK-MED ONCE .ROUTE ; Start 09/13/19 at 12:36; Stop 09/13/19 at 12:36; Status DC Fentanyl Citrate (Fentanyl 2ml Vial) 100 mcg STK-MED ONCE .ROUTE ; Start 0 at 12:36; Stop 09/13/19 at 12:36; Status DC Midazolam HCl (Versed) 2 mg 1X ONCE IV Last administered on 09/13/19at 12:51; Start 09/13/19 at 13:00; Stop 09/13/19 at 13:01; Status DC Fentanyl Citrate (Fentanyl 2ml Vial) 100 mcg 1X ONCE IV Last administered on 09/13/19at 12:52; Start 09/13/19 at 13:00; Stop 09/13/19 at 13:01; Status DC Lidocaine/ Epinephrine (LIDOCAINE 1%-EPI 1:100,000 Multi-Dose) 20 ml 1X ONCE SQ Last administered on 09/13/19at 12:51; Start 09/13/19 at 13:00; Stop 09/13/19 at 13:01; Status DC Cefazolin Sodium (Ancef) 1 gm 1X ONCE IVP Last administered on 09/13/19at 12:51; Start 09/13/19 at 13:00; Stop 09/13/19 at 13:01; Status DC Sodium Chloride 1,000 ml @ 1,000 mls/hr Q1H PRN IV hypotension; Start 09/13/19 at 13:35; Stop 09/13/19 at 19:34; Status DC Sodium Chloride 1,000 ml @ 400 mls/hr Q2H30M PRN IV PATENCY; Start 09/13/19 at 13:35; Stop 09/14/19 at 01:35; Status DC Info (PHARMACY MONITORING -- do not chart) 1 each PRN DAILY PRN MC SEE COMMENTS; Start 09/13/19 at 13:45; Status UNV Info (PHARMACY MONITORING -- do not chart) 1 each PRN DAILY PRN MC SEE COMMENTS; Start 09/13/19 at 13:45 Lidocaine HCl (Buffered Lidocaine 1%) 3 ml 1X ONCE IJ ; Start 09/13/19 at 14:15; Stop 09/13/19 at 14:16; Status Cancel Midazolam HCl (Versed) 2 mg 1X ONCE IV ; Start 09/13/19 at 14:15; Stop 09/13/19 at 14:16; Status Cancel Fentanyl Citrate (Fentanyl 2ml Vial) 100 mcg 1X ONCE IV ; Start 09/13/19 at 14:15; Stop 09/13/19 at 14:16; Status Cancel Iodixanol (Visipaque 320) 100 ml 1X ONCE IART ; Start 09/13/19 at 14:15; Stop 09/13/19 at 14:16; Status Cancel Cefazolin Sodium (Ancef) 1 gm 1X ONCE IVP ; Start 09/13/19 at 14:15; Stop 09/13/19 at 14:16; Status Cancel Info (CONTRAST GIVEN -- Rx MONITORING) 1 each PRN DAILY PRN MC SEE COMMENTS; Start 09/13/19 at 14:30; Stop 09/15/19 at 14:29; Status Cancel Sodium Chloride 1,000 ml @ 1,000 mls/hr Q1H PRN IV hypotension; Start 09/14/19 at 09:00; Stop 09/14/19 at 14:59; Status DC Sodium Chloride 1,000 ml @ 400 mls/hr Q2H30M PRN IV PATENCY; Start 09/14/19 at 09:00; Stop 09/14/19 at 20:59; Status DC Info (PHARMACY MONITORING -- do not chart) 1 each PRN DAILY PRN MC SEE COMMENTS; Start 09/14/19 at 11:15; Status UNV Info (PHARMACY MONITORING -- do not chart) 1 each PRN DAILY PRN MC SEE COMMENTS; Start 09/14/19 at 11:15; Status Cancel Acetaminophen (Tylenol) 650 mg PRN Q6HRS PRN PO MILD PAIN 1-3 Last administered on 09/16/19at 19:17; Start 09/14/19 at 16:45 Bisacodyl (Dulcolax Tab) 5 mg PRN DAILY PRN PO CONSTIPATION Last administered on 09/15/19at 13:39; Start 09/15/19 at 13:30 Sodium Chloride 1,000 ml @ 1,000 mls/hr Q1H PRN IV hypotension; Start 09/16/19 at 08:00; Stop 09/16/19 at 13:59; Status DC Sodium Chloride 1,000 ml @ 400 mls/hr Q2H30M PRN IV PATENCY; Start 09/16/19 at 08:00; Stop 09/16/19 at 19:59; Status DC Info (PHARMACY MONITORING -- do not chart) 1 each PRN DAILY PRN MC SEE COMMENTS; Start 09/16/19 at 11:15; Stop 09/16/19 at 11:11; Status DC Info (PHARMACY MONITORING -- do not chart) 1 each PRN DAILY PRN MC SEE COMMENTS; Start 09/16/19 at 11:15; Stop 09/16/19 at 11:11; Status DC Polyethylene Glycol (miraLAX PACKET) 17 gm DAILY PO Last administered on 09/16/19at 13:57; Start 09/16/19 at 13:00; Stop 09/17/19 at 09:44; Status DC Polyethylene Glycol (miraLAX PACKET) 17 gm PRN DAILY PRN PO CONSTIPATION; Start 09/16/19 at 12:00; Stop 09/17/19 at 09:45; Status DC Bisacodyl (Dulcolax Tab) 10 mg 1X ONCE PO Last administered on 09/16/19at 13:57; Start 09/16/19 at 12:00; Stop 09/16/19 at 12:02; Status DC Polyethylene Glycol (miraLAX PACKET) 17 gm BID PO ; Start 09/17/19 at 21:00 Lubiprostone (Amitiza) 24 mcg BIDWMEALS PO Last administered on 09/17/19at 18:35; Start 09/17/19 at 10:00 Methylprednisolone Acetate (DEPO-Medrol 80MG VIAL) 80 mg 1X ONCE INJ Last administered on 09/17/19at 15:45; Start 09/17/19 at 15:45; Stop 09/17/19 at 15:54; Status DC Bupivacaine HCl (Sensorcaine Mpf 0.5%) 10 ml 1X ONCE IJ Last administered on 09/17/19at 15:45; Start 09/17/19 at 15:45; Stop 09/17/19 at 15:54; Status DC Morphine Sulfate (Morphine Sulfate) 2 mg PRN Q2HR PRN IV PAIN; Start 09/17/19 at 17:45 Tramadol HCl (Ultram) 50 mg PRN Q6HRS PRN PO PAIN; Start 09/17/19 at 17:45 Active Scripts Active [Darbepoetin Emmanuel In Polysorbat] 60 MCG/0.3 ML Disp.syrin 60 Mcg SQ WEEKLYHS 30 Days Reported Protonix (Pantoprazole Sodium) 40 Mg Tablet.dr 40 Mg PO DAILYAC Multivitamins (Multivitamin) 1 Each Tablet 1 Tab PO DAILY Symbicort 160-4.5 Mcg Inhaler (Budesonide/Formoterol Fumarate) 10.2 Gm Hfa.aer.ad 1 Puff IH BID Spiriva (Tiotropium Parsons) 18 Mcg Cap.w.dev 2 Inh IH DAILY Xarelto (Rivaroxaban) 10 Mg Tablet 10 Mg PO DAILY Phoslo (Calcium Acetate) 667 Mg Capsule 1 Cap PO BIDWMEALS K-Tab ER (Potassium Chloride) 20 Meq Tablet.er 20 Meq PO DAILY Vitals/I & O Vital Sign - Last 24 Hours 09/16/19 09/17/19 09/17/19 09/17/19 23:00 03:35 07:00 08:00 Temp 99.3 98.0 98.1 99.3 98.0 98.1 Pulse 90 81 82 Resp 18 18 18 B/P (MAP) 147/79 (101) 162/86 (111) 147/78 (101) Pulse Ox 93 95 94 O2 Delivery Room Air Room Air Room Air Room Air O2 Flow Rate 2.0 09/17/19 09/17/19 09/17/19 09/17/19 09:23 10:35 15:00 19:20 Temp 98.8 98.9 99.4 98.8 98.9 99.4 Pulse 82 88 87 91 Resp 18 18 20 B/P (MAP) 147/78 119/63 (81) 155/79 (104) 159/84 (109) Pulse Ox 94 95 93 O2 Delivery Room Air Room Air Room Air 09/17/19 20:45 Pulse 91 B/P (MAP) 159/84 Intake and Output 09/16/19 09/16/19 09/17/19 14:00 22:00 06:00 Intake Total 360 ml 560 ml 100 ml Output Total 200 ml 150 ml Balance 360 ml 360 ml -50 ml Hemodynamically unstable?: No Is patient in severe pain?: No Is NPO status required?: No JHONNY ROQUE MD Sep 17, 2019 21:49
[2019-09-17 22:40] VITALS: BP 123/63
--- NOTE | 2019-09-18 00:47 | CONS ---
DATE OF CONSULTATION: 09/17/2019 ORTHOPEDIC CONSULTATION REQUESTING PHYSICIAN: Dr. Shultz. REASON FOR CONSULTATION: Right knee pain and MRI results. HISTORY OF PRESENT ILLNESS: The patient is a 59-year-old female who fell and landed on both of her knees and had immediate onset of pain and swelling in the right knee more so than the left and was brought in to the hospital and was found to be with hypothermia and hypoglycemia and admitted through the Emergency Room. She has had ongoing right knee pain and swelling and some treatment for congestive heart failure, hypertension and also apparently going to be put on hemodialysis and is considered for a transfer to [facility] in the near future who has ongoing right knee pain, swelling, difficulty ambulating and now has MRI results prompting request for orthopedic evaluation and treatment. PAST MEDICAL HISTORY: Significant for end-stage kidney disease, atrial fibrillation, hypertension, hyperlipidemia, COPD, history of pulmonary embolism, reflux disease, anemia, rheumatoid arthritis, and also lupus. PAST SURGICAL HISTORY: Denies any surgical history. SOCIAL HISTORY: She denies any tobacco, alcohol or drug use. She lives alone and has used a walker for support with ambulation over the past several weeks. MEDICATIONS: List is reviewed. ALLERGIES: No known drug allergies. REVIEW OF SYSTEMS: Significant for the right knee pain, swelling, and difficulty ambulation. PHYSICAL EXAMINATION: GENERAL: She is a pleasant, cooperative 59-year-old -[place] male, mildly sleepy, but wakes up and is conversational and alert, follows commands appropriately. EXTREMITIES: On examination of her right knee, no gross ligamentous laxity, but she does have a large effusion. There is no patellofemoral maltracking. She has normal examination of the contralateral knee, bilateral hips and ankles. Normal alignment and stability of bilateral shoulders, elbows, wrists. Her terminal flexion of her right knee is limited secondary to her effusion compared to the left. Her motor function, distal pulses, sensation are intact in both lower extremities throughout. IMAGING: MRI images were reviewed by me and by radiology report, which do show some irregularity of the undersurface of the medial meniscus, primarily body and to a lesser extent posterior horn. She does have a small avulsion fragment and some bony edema at the PCL insertion, which is otherwise really not compromised and has a normal course. ACL appears intact. She has good maintenance of her weightbearing cartilage. Radiology report noted an avulsion fracture of the PCL, tibial insertion and medial meniscus tear. IMPRESSION: 1. Medial meniscus tear and tibial-sided PCL partial injury. 2. Large knee joint effusion following a contusion. 3. Multiple medical problems including end-stage renal disease, scheduled for dialysis. TREATMENT PLAN: I went over with her that while she does have a meniscus tear. I think her biggest problem based on her clinical examination is coming from her ongoing effusion from her knee contusion. Therefore, after informed verbal consent was obtained, the right knee was aspirated for approximately 90 mL of blood-tinged joint fluid with no cloudiness or other abnormalities. She was then injected with 1 mL 80 mg/mL Depo-Medrol and 3 mL of 0.5% plain Marcaine. She will go back in her knee brace for some support currently and is scheduled for eventual transfer to [facility] in the near future, set up for hemodialysis. I let her know that usually the aspiration and injection may take a couple of days to really take maximum effect for her, structurally she can ambulate as symptomatically tolerated and I do not anticipate surgical intervention unless she really has more mechanical symptoms or outright instability. Followup can be on an as needed basis depending on her ongoing response to the aspiration, injection and future activities. DOLLY SOLITARIO MD DR: YAYA/isai JOB#: [id number] / [id number]
[2019-09-18 03:20] VITALS: BP 146/77
[2019-09-18 07:00] VITALS: BP 176/103
[2019-09-18] MEDS: LUBIPROSTONE 24 MCG CAPSULE PO SCH (08:00)
[2019-09-18 08:27] LABS: BASO % 0 % (0-3); EOS % 0 % (0-3); HEMATOCRIT 29.7 % (36.0-47.0); HEMOGLOBIN 9.3 g/dL (12.0-15.5); LYMPH # 0.5 x10^3/uL (1.0-4.8); LYMPH % 13 % (24-48); MEAN CORPUSCULAR HEMOGLOBIN 29 pg (25-35); MEAN CORPUSCULAR HGB CONC 32 g/dL (31-37); MEAN CORPUSCULAR VOLUME 93 fL (79-100); MONO # 0.3 x10^3/uL (0.0-1.1); MONO % 8 % (0-9); NEUT # 3.3 x10^3/uL (1.8-7.7); NEUT % 79 % (31-73); PLATELET COUNT 122 x10^3/uL (140-400); RED BLOOD COUNT 3.21 x10^6/uL (3.50-5.40); RED CELL DISTRIBUTION WIDTH 17.9 % (11.5-14.5); WHITE BLOOD COUNT 4.2 x10^3/uL (4.0-11.0)
[2019-09-18] MEDS: MINERAL OIL/PETROLATUM TOPICAL CREAM 113GM JAR. TP SCH (08:33)
[2019-09-18] MEDS: LABETALOL HCL 200 MG TABLET PO SCH (08:34)
[2019-09-18] MEDS: DICLOFENAC SODIUM 1% TOPICAL GEL 100GM TUBE. TP SCH (08:34)
[2019-09-18] MEDS: PANTOPRAZOLE 40 MG TABLET.DR. PO SCH (08:34)
[2019-09-18] MEDS: FUROSEMIDE 40 MG TABLET. PO SCH (08:35)
[2019-09-18] MEDS: POLYETHYLENE GLYCOL 3350 17 GM PACKET. PO SCH (08:36)
[2019-09-18 08:55] LABS: CALCIUM 8.8 mg/dL (8.5-10.1); CREATININE 2.5 mg/dL (0.6-1.0); GFR 23.9; POTASSIUM 4.7 mmol/L (3.5-5.1)
--- NOTE | 2019-09-18 09:37 | PDOC ---
Subjective: Subjective: No GI complaints - reports three stools. Wants me to know she's going to but still wants to come back here sometime for EGD and colonoscopy w/ Dr. Cutler instead of going to [facility]. Objective: Vital Signs: Vital Signs Date Time Temp Pulse Resp B/P (MAP) Pulse Ox O2 Delivery O2 Flow Rate FiO2 09/18/19 08:34 80 176/103 09/18/19 07:00 98.0 18 93 Room Air 98.0 09/17/19 20:00 2.0 Labs: Laboratory Tests Test 09/18/19 07:32 White Blood Count 4.2 x10^3/uL Red Blood Count 3.21 x10^6/uL Hemoglobin 9.3 g/dL Hematocrit 29.7 % Mean Corpuscular Volume 93 fL Mean Corpuscular Hemoglobin 29 pg Mean Corpuscular Hemoglobin Concent 32 g/dL Red Cell Distribution Width 17.9 % Platelet Count 122 x10^3/uL Neutrophils (%) (Auto) 79 % Lymphocytes (%) (Auto) 13 % Monocytes (%) (Auto) 8 % Eosinophils (%) (Auto) 0 % Basophils (%) (Auto) 0 % Neutrophils # (Auto) 3.3 x10^3/uL Lymphocytes # (Auto) 0.5 x10^3/uL Monocytes # (Auto) 0.3 x10^3/uL Eosinophils # (Auto) 0.0 x10^3/uL Basophils # (Auto) 0.0 x10^3/uL Sodium Level 140 mmol/L Potassium Level 4.7 mmol/L Chloride Level 103 mmol/L Carbon Dioxide Level 26 mmol/L Anion Gap 11 Blood Urea Nitrogen 35 mg/dL Creatinine 2.5 mg/dL Estimated GFR (Cockcroft-Gault) 23.9 Glucose Level 98 mg/dL Calcium Level 8.8 mg/dL Imaging: KUB 09/17 IMPRESSION: Moderate stool throughout the large bowel with pelvic calcifications suggestive of calcified fibroids. Right Knee MRI 09/17 IMPRESSION: 1. Nondisplaced avulsion type fracture of the posterior tibial plateau, at the posterior cruciate ligament attachment. Nose evidence of fragmented elevation or displacement. The posterior cruciate ligament itself is intact. 2. Osteochondral defect of the patella is also most likely due to a posttraumatic fracture. The appearance suggests some displaced osteochondral tissue but these fragments are not visualized. 3. Medial meniscal tear. PE: GEN: NAD LUNGS: CTAB HEART: RRR ABD: NABS, S/ND/NT NEURO/PSYCH: A & O 3 A/P: Right knee injury - MRI as above, s/p aspiration/injection by ortho ESRD on HD, HTN ACD - stable, h/o abnormal 'scopes w/ Dr. Ortiz - records requested/not received GERD - on PPI Constipation - resolved -- Back off on constipation meds - adjust as needed. Continue PPI. Outpt scopes eventually - our office will contact. Hemodynamically unstable?: No Is patient in severe pain?: No Is NPO status required?: No JAVON BLANCO Sep 18, 2019 09:37
--- NOTE | 2019-09-18 09:43 | PDOC ---
PROGRESS NOTES Subjective Subjective No new complaints. Objective Objective Vital Signs Date Time Temp Pulse Resp B/P (MAP) Pulse Ox O2 Delivery O2 Flow Rate FiO2 09/18/19 08:34 80 176/103 09/18/19 07:00 98.0 18 93 Room Air 98.0 09/17/19 20:00 2.0 Intake and Output 09/18/19 07:00 Intake Total 360 ml Output Total 200 ml Balance 160 ml Intake Oral 360 ml Output Urine Total 200 ml # Voids 1 # Bowel Movements 2 Physical Exam Physical Exam She is alert,supine in bed and she continues with right knee joint effusion and pain on ROM of her right knee joint. Assessment Assessment Problems Medical Problems: (1) Accelerated hypertension Status: Acute (2) CKD (chronic kidney disease) Status: Acute (3) Fall Status: Acute (4) Hypothermia Status: Acute Plan Plan of Care Agree with plans for transfer to SNF and she probably need hinge knee brace to her right knee as it will be difficult to walk with knee immobilizer. Comment Review of Relevant I have reviewed the following items grgeorio (where applicable) has been applied. Labs Laboratory Tests Test 09/17/19 03:45 09/18/19 07:32 White Blood Count 4.5 x10^3/uL (4.0-11.0) 4.2 x10^3/uL (4.0-11.0) Red Blood Count 2.92 x10^6/uL (3.50-5.40) 3.21 x10^6/uL (3.50-5.40) Hemoglobin 8.5 g/dL (12.0-15.5) 9.3 g/dL (12.0-15.5) Hematocrit 26.3 % (36.0-47.0) 29.7 % (36.0-47.0) Mean Corpuscular Volume 90 fL (79-100) 93 fL (79-100) Mean Corpuscular Hemoglobin 29 pg (25-35) 29 pg (25-35) Mean Corpuscular Hemoglobin Concent 32 g/dL (31-37) 32 g/dL (31-37) Red Cell Distribution Width 17.9 % (11.5-14.5) 17.9 % (11.5-14.5) Platelet Count 109 x10^3/uL (140-400) 122 x10^3/uL (140-400) Neutrophils (%) (Auto) 65 % (31-73) 79 % (31-73) Lymphocytes (%) (Auto) 18 % (24-48) 13 % (24-48) Monocytes (%) (Auto) 16 % (0-9) 8 % (0-9) Eosinophils (%) (Auto) 1 % (0-3) 0 % (0-3) Basophils (%) (Auto) 0 % (0-3) 0 % (0-3) Neutrophils # (Auto) 2.9 x10^3/uL (1.8-7.7) 3.3 x10^3/uL (1.8-7.7) Lymphocytes # (Auto) 0.8 x10^3/uL (1.0-4.8) 0.5 x10^3/uL (1.0-4.8) Monocytes # (Auto) 0.7 x10^3/uL (0.0-1.1) 0.3 x10^3/uL (0.0-1.1) Eosinophils # (Auto) 0.1 x10^3/uL (0.0-0.7) 0.0 x10^3/uL (0.0-0.7) Basophils # (Auto) 0.0 x10^3/uL (0.0-0.2) 0.0 x10^3/uL (0.0-0.2) Sodium Level 139 mmol/L (136-145) 140 mmol/L (136-145) Potassium Level 4.0 mmol/L (3.5-5.1) 4.7 mmol/L (3.5-5.1) Chloride Level 102 mmol/L (98-107) 103 mmol/L (98-107) Carbon Dioxide Level 31 mmol/L (21-32) 26 mmol/L (21-32) Anion Gap 6 (6-14) 11 (6-14) Blood Urea Nitrogen 23 mg/dL (7-20) 35 mg/dL (7-20) Creatinine 2.0 mg/dL (0.6-1.0) 2.5 mg/dL (0.6-1.0) Estimated GFR (Cockcroft-Gault) 30.9 23.9 Glucose Level 90 mg/dL (70-99) 98 mg/dL (70-99) Calcium Level 8.6 mg/dL (8.5-10.1) 8.8 mg/dL (8.5-10.1) Laboratory Tests Test 09/18/19 07:32 White Blood Count 4.2 x10^3/uL (4.0-11.0) Red Blood Count 3.21 x10^6/uL (3.50-5.40) Hemoglobin 9.3 g/dL (12.0-15.5) Hematocrit 29.7 % (36.0-47.0) Mean Corpuscular Volume 93 fL (79-100) Mean Corpuscular Hemoglobin 29 pg (25-35) Mean Corpuscular Hemoglobin Concent 32 g/dL (31-37) Red Cell Distribution Width 17.9 % (11.5-14.5) Platelet Count 122 x10^3/uL (140-400) Neutrophils (%) (Auto) 79 % (31-73) Lymphocytes (%) (Auto) 13 % (24-48) Monocytes (%) (Auto) 8 % (0-9) Eosinophils (%) (Auto) 0 % (0-3) Basophils (%) (Auto) 0 % (0-3) Neutrophils # (Auto) 3.3 x10^3/uL (1.8-7.7) Lymphocytes # (Auto) 0.5 x10^3/uL (1.0-4.8) Monocytes # (Auto) 0.3 x10^3/uL (0.0-1.1) Eosinophils # (Auto) 0.0 x10^3/uL (0.0-0.7) Basophils # (Auto) 0.0 x10^3/uL (0.0-0.2) Sodium Level 140 mmol/L (136-145) Potassium Level 4.7 mmol/L (3.5-5.1) Chloride Level 103 mmol/L (98-107) Carbon Dioxide Level 26 mmol/L (21-32) Anion Gap 11 (6-14) Blood Urea Nitrogen 35 mg/dL (7-20) Creatinine 2.5 mg/dL (0.6-1.0) Estimated GFR (Cockcroft-Gault) 23.9 Glucose Level 98 mg/dL (70-99) Calcium Level 8.8 mg/dL (8.5-10.1) Medications Current Medications Labetalol HCl (Normodyne Iv Push) 10 mg 1X ONCE IVP Last administered on 09/10/19at 21:38; Start 09/10/19 at 21:30; Stop 09/10/19 at 21:31; Status DC Dextrose (Dextrose 50%-Water Syringe) 25 gm STK-MED ONCE IV ; Start 09/10/19 at 21:37; Stop 09/10/19 at 21:37; Status DC Dextrose (Dextrose 50%-Water Syringe) 25 gm 1X ONCE IV Last administered on 09/10/19at 21:44; Start 09/10/19 at 21:45; Stop 09/10/19 at 21:46; Status DC Sodium Chloride 1,000 ml @ 1,000 mls/hr Q1H IV Last administered on 09/10/19at 22:40; Start 09/10/19 at 22:15; Stop 09/10/19 at 23:14; Status DC Labetalol HCl (Normodyne Iv Push) 10 mg 1X ONCE IVP ; Start 09/10/19 at 23:45; Stop 09/10/19 at 23:46; Status UNV Heparin Sodium/ Dextrose 250 ml @ 0 mls/hr CONT PRN IV PER PROTOCOL Last administered on 09/11/19at 00:14; Start 09/10/19 at 23:45; Stop 09/11/19 at 10:46; Status DC Heparin Sodium (Porcine) (Heparin Sodium) 1,600 unit PRN Q6HRS PRN IV FOR UFH LEVEL LESS THAN 0.2; Start 09/10/19 at 23:45; Stop 09/11/19 at 16:30; Status DC Ondansetron HCl (Zofran) 4 mg PRN Q8HRS PRN IV NAUSEA/VOMITING; Start 09/10/19 at 23:45; Stop 09/11/19 at 23:44; Status DC Acetaminophen (Tylenol) 650 mg PRN Q4HRS PRN PO FEVER; Start 09/10/19 at 23:45; Stop 09/11/19 at 23:44; Status DC Nitroglycerin (Nitrostat) 0.4 mg PRN Q5MIN PRN SL CHEST PAIN; Start 09/10/19 at 23:45; Stop 09/11/19 at 23:44; Status DC Calcium Gluconate (Calcium Gluconate) 1,000 mg 1X ONCE IVP Last administered on 09/10/19at 23:59; Start 09/10/19 at 23:45; Stop 09/10/19 at 23:46; Status DC Dextrose (Dextrose 50%-Water Syringe) 25 gm 1X ONCE IV Last administered on 09/10/19at 23:57; Start 09/10/19 at 23:45; Stop 09/10/19 at 23:46; Status DC Insulin Human Regular (HumuLIN R VIAL) 10 unit 1X ONCE IV Last administered on 09/11/19at 00:16; Start 09/10/19 at 23:45; Stop 09/10/19 at 23:46; Status DC Labetalol HCl (Normodyne Iv Push) 10 mg 1X ONCE IVP Last administered on 09/10/19at 22:30; Start 09/10/19 at 23:45; Stop 09/10/19 at 23:46; Status DC Hydralazine HCl (Apresoline Inj) 10 mg Q4HRS PRN IVP ELEVATED BP, SEE COMMENTS Last administered on 09/13/19at 08:33; Start 09/11/19 at 00:00; Stop 09/13/19 at 08:55; Status DC Info (Anti-Coagulation Monitoring By Pharmacy) 1 each PRN DAILY PRN MC SEE COMMENTS; Start 09/11/19 at 08:15; Stop 09/11/19 at 16:30; Status DC Furosemide (Lasix) 40 mg 1X ONCE IVP ; Start 09/11/19 at 11:30; Stop 09/11/19 at 11:31; Status Cancel Darbepoetin Emmanuel (ARANESP for DIALYSIS PTS) 60 mcg WEEKLYHS SQ Last administered on 09/11/19at 20:47; Start 09/11/19 at 21:00 Furosemide (Lasix) 60 mg 1X ONCE IVP Last administered on 09/11/19at 11:18; Start 09/11/19 at 11:00; Stop 09/11/19 at 11:01; Status DC Diclofenac Sodium (Voltaren) 1 del BID TP Last administered on 09/18/19at 08:34; Start 09/11/19 at 12:00 Methylprednisolone Acetate (DEPO-Medrol 40MG VIAL) 40 mg 1X ONCE IM ; Start 09/11/19 at 11:30; Stop 09/11/19 at 11:31; Status DC Bupivacaine HCl (Sensorcaine-Mpf 0.25%) 10 ml 1X ONCE IJ ; Start 09/11/19 at 11:30; Stop 09/11/19 at 11:31; Status DC Multi-Ingredient Ointment (Hydrocerin Cream) 1 del PRN Q1HR PRN TP DRY SKIN / SCALING; Start 09/11/19 at 11:00; Stop 09/11/19 at 11:01; Status DC Multi-Ingredient Ointment (Hydrocerin Cream) 1 del BID TP Last administered on 09/18/19at 08:33; Start 09/11/19 at 21:00 Labetalol HCl (Trandate) 200 mg BID PO Last administered on 09/18/19at 08:34; Start 09/11/19 at 21:00 Polyethylene Glycol (miraLAX PACKET) 17 gm DAILY PO Last administered on 09/17/19at 09:24; Start 09/12/19 at 10:00; Stop 09/17/19 at 09:44; Status DC Hydralazine HCl (Apresoline Inj) 10 mg PRN Q4HRS PRN IVP ELEVATED BP, SEE COMMENTS Last administered on 09/16/19at 08:11; Start 09/12/19 at 12:00 Furosemide (Lasix) 40 mg DAILY PO Last administered on 09/18/19at 08:35; Start 09/12/19 at 12:30 Pantoprazole Sodium (Protonix) 40 mg DAILYAC PO Last administered on 09/18/19at 08:34; Start 09/12/19 at 15:00 Lidocaine/ Epinephrine (LIDOCAINE 1%-EPI 1:100,000 Multi-Dose) 20 ml STK-MED ONCE .ROUTE ; Start 09/13/19 at 12:12; Stop 09/13/19 at 12:12; Status DC Cefazolin Sodium (Ancef) 1 gm STK-MED ONCE IVP ; Start 09/13/19 at 12:32; Stop 09/13/19 at 12:33; Status DC Midazolam HCl (Versed) 2 mg STK-MED ONCE .ROUTE ; Start 09/13/19 at 12:36; Stop 09/13/19 at 12:36; Status DC Fentanyl Citrate (Fentanyl 2ml Vial) 100 mcg STK-MED ONCE .ROUTE ; Start 09/13/19 at 12:36; Stop 09/13/19 at 12:36; Status DC Midazolam HCl (Versed) 2 mg 1X ONCE IV Last administered on 09/13/19at 12:51; Start 09/13/19 at 13:00; Stop 09/13/19 at 13:01; Status DC Fentanyl Citrate (Fentanyl 2ml Vial) 100 mcg 1X ONCE IV Last administered on 09/13/19at 12:52; Start 09/13/19 at 13:00; Stop 09/13/19 at 13:01; Status DC Lidocaine/ Epinephrine (LIDOCAINE 1%-EPI 1:100,000 Multi-Dose) 20 ml 1X ONCE SQ Last administered on 09/13/19at 12:51; Start 09/13/19 at 13:00; Stop 09/13/19 at 13:01; Status DC Cefazolin Sodium (Ancef) 1 gm 1X ONCE IVP Last administered on 09/13/19at 12:51; Start 09/13/19 at 13:00; Stop 09/13/19 at 13:01; Status DC Sodium Chloride 1,000 ml @ 1,000 mls/hr Q1H PRN IV hypotension; Start 09/13/19 at 13:35; Stop 09/13/19 at 19:34; Status DC Sodium Chloride 1,000 ml @ 400 mls/hr Q2H30M PRN IV PATENCY; Start 09/13/19 at 13:35; Stop 09/14/19 at 01:35; Status DC Info (PHARMACY MONITORING -- do not chart) 1 each PRN DAILY PRN MC SEE COMMENTS; Start 09/13/19 at 13:45; Status UNV Info (PHARMACY MONITORING -- do not chart) 1 each PRN DAILY PRN MC SEE COMMENTS; Start 09/13/19 at 13:45 Lidocaine HCl (Buffered Lidocaine 1%) 3 ml 1X ONCE IJ ; Start 09/13/19 at 14:15; Stop 09/13/19 at 14:16; Status Cancel Midazolam HCl (Versed) 2 mg 1X ONCE IV ; Start 09/13/19 at 14:15; Stop 09/13/19 at 14:16; Status Cancel Fentanyl Citrate (Fentanyl 2ml Vial) 100 mcg 1X ONCE IV ; Start 09/13/19 at 14:15; Stop 09/13/19 at 14:16; Status Cancel Iodixanol (Visipaque 320) 100 ml 1X ONCE IART ; Start 09/13/19 at 14:15; Stop 09/13/19 at 14:16; Status Cancel Cefazolin Sodium (Ancef) 1 gm 1X ONCE IVP ; Start 09/13/19 at 14:15; Stop 09/13/19 at 14:16; Status Cancel Info (CONTRAST GIVEN -- Rx MONITORING) 1 each PRN DAILY PRN MC SEE COMMENTS; Start 09/13/19 at 14:30; Stop 09/15/19 at 14:29; Status Cancel Sodium Chloride 1,000 ml @ 1,000 mls/hr Q1H PRN IV hypotension; Start 09/14/19 at 09:00; Stop 09/14/19 at 14:59; Status DC Sodium Chloride 1,000 ml @ 400 mls/hr Q2H30M PRN IV PATENCY; Start 09/14/19 at 09:00; Stop 09/14/19 at 20:59; Status DC Info (PHARMACY MONITORING -- do not chart) 1 each PRN DAILY PRN MC SEE CO MMENTS; Start 09/14/19 at 11:15; Status UNV Info (PHARMACY MONITORING -- do not chart) 1 each PRN DAILY PRN MC SEE COMMENTS; Start 09/14/19 at 11:15; Status Cancel Acetaminophen (Tylenol) 650 mg PRN Q6HRS PRN PO MILD PAIN 1-3 Last administered on 09/16/19at 19:17; Start 09/14/19 at 16:45 Bisacodyl (Dulcolax Tab) 5 mg PRN DAILY PRN PO CONSTIPATION Last administered on 09/15/19at 13:39; Start 09/15/19 at 13:30 Sodium Chloride 1,000 ml @ 1,000 mls/hr Q1H PRN IV hypotension; Start 09/16/19 at 08:00; Stop 09/16/19 at 13:59; Status DC Sodium Chloride 1,000 ml @ 400 mls/hr Q2H30M PRN IV PATENCY; Start 09/16/19 at 08:00; Stop 09/16/19 at 19:59; Status DC Info (PHARMACY MONITORING -- do not chart) 1 each PRN DAILY PRN MC SEE COMMENTS; Start 09/16/19 at 11:15; Stop 09/16/19 at 11:11; Status DC Info (PHARMACY MONITORING -- do not chart) 1 each PRN DAILY PRN MC SEE COMMENTS; Start 09/16/19 at 11:15; Stop 09/16/19 at 11:11; Status DC Polyethylene Glycol (miraLAX PACKET) 17 gm DAILY PO Last administered on 09/16/19at 13:57; Start 09/16/19 at 13:00; Stop 09/17/19 at 09:44; Status DC Polyethylene Glycol (miraLAX PACKET) 17 gm PRN DAILY PRN PO CONSTIPATION; Start 09/16/19 at 12:00; Stop 09/17/19 at 09:45; Status DC Bisacodyl (Dulcolax Tab) 10 mg 1X ONCE PO Last administered on 09/16/19at 13:57; Start 09/16/19 at 12:00; Stop 09/16/19 at 12:02; Status DC Polyethylene Glycol (miraLAX PACKET) 17 gm BID PO ; Start 09/17/19 at 21:00; Stop 09/18/19 at 09:36; Status DC Lubiprostone (Amitiza) 24 mcg BIDWMEALS PO Last administered on 09/17/19at 18:35; Start 09/17/19 at 10:00; Stop 09/18/19 at 09:36; Status DC Methylprednisolone Acetate (DEPO-Medrol 80MG VIAL) 80 mg 1X ONCE INJ Last administered on 09/17/19at 15:45; Start 09/17/19 at 15:45; Stop 09/17/19 at 15:54; Status DC Bupivacaine HCl (Sensorcaine Mpf 0.5%) 10 ml 1X ONCE IJ Last administered on 09/17/19at 15:45; Start 09/17/19 at 15:45; Stop 09/17/19 at 15:54; Status DC Morphine Sulfate (Morphine Sulfate) 2 mg PRN Q2HR PRN IV PAIN; Start 09/17/19 at 17:45 Tramadol HCl (Ultram) 50 mg PRN Q6HRS PRN PO MODERATE - SEVERE PAIN; Start 09/17/19 at 17:45 Polyethylene Glycol (miraLAX PACKET) 17 gm DAILY PO ; Start 09/19/19 at 09:00; Status UNV Active Scripts Active [Darbepoetin Emmanuel In Polysorbat] 60 MCG/0.3 ML Disp.syrin 60 Mcg SQ WEEKLYHS 30 Days Reported Protonix (Pantoprazole Sodium) 40 Mg Tablet.dr 40 Mg PO DAILYAC Multivitamins (Multivitamin) 1 Each Tablet 1 Tab PO DAILY Symbicort 160-4.5 Mcg Inhaler (Budesonide/Formoterol Fumarate) 10.2 Gm H fa.aer.ad 1 Puff IH BID Spiriva (Tiotropium Elizabeth) 18 Mcg Cap.w.dev 2 Inh IH DAILY Xarelto (Rivaroxaban) 10 Mg Tablet 10 Mg PO DAILY Phoslo (Calcium Acetate) 667 Mg Capsule 1 Cap PO BIDWMEALS K-Tab ER (Potassium Chloride) 20 Meq Tablet.er 20 Meq PO DAILY Vitals/I & O Vital Sign - Last 24 Hours 09/17/19 09/17/19 09/17/19 09/17/19 10:35 15:00 19:20 20:00 Temp 98.8 98.9 99.4 98.8 98.9 99.4 Pulse 88 87 91 Resp 18 18 20 B/P (MAP) 119/63 (81) 155/79 (104) 159/84 (109) Pulse Ox 94 95 93 O2 Delivery Room Air Room Air Room Air Room Air O2 Flow Rate 2.0 09/17/19 09/17/19 09/18/19 09/18/19 20:45 22:40 03:20 07:00 Temp 98.5 97.9 98.0 98.5 97.9 98.0 Pulse 91 90 74 80 Resp 18 18 18 B/P (MAP) 159/84 123/63 (83) 146/77 (100) 176/103 (127) Pulse Ox 92 93 93 O2 Delivery Room Air Room Air Room Air 09/18/19 08:34 Pulse 80 B/P (MAP) 176/103 Intake and Output 09/17/19 09/17/19 09/18/19 15:00 23:00 07:00 Intake Total 240 ml 120 ml Output Total 200 ml Balance 40 ml 120 ml Hemodynamically unstable?: No Is patient in severe pain?: No Is NPO status required?: No FAITH ADDISON MD Sep 18, 2019 09:43
[2019-09-18] MEDS ORDERED: IV NORMAL SALINE 1000ML BAG 1,000 ML IV PRN ×2 (10:02)
[2019-09-18] MEDS ORDERED: DIALYSIS PATIENT. MC PRN (10:15)
--- NOTE | 2019-09-18 11:56 | NUR ---
SS following up with discharge planning. Insurance authorization received for [facility], ; fax [phone]. SS will await discharge instructions and will proceed accordingly. Pt's RN notified.
--- NOTE | 2019-09-18 12:14 | PDOC ---
SUBJECTIVE ROS Pt seen on HD , no complaints States she hasnt voided since Reid removed OBJECTIVE Vital Signs Vital Signs Date Time Temp Pulse Resp B/P (MAP) Pulse Ox O2 Delivery O2 Flow Rate FiO2 09/18/19 08:34 80 176/103 09/18/19 08:00 Room Air 2.0 09/18/19 07:00 98.0 18 93 98.0 I & 0 Intake and Output 09/18/19 07:00 Intake Total 360 ml Output Total 200 ml Balance 160 ml Intake Oral 360 ml Output Urine Total 200 ml # Voids 1 # Bowel Movements 2 PHYSICAL EXAM Physical Exam General: No acute distress HEENT: On 02 by NC , 100% O2 sats Neck Supple Lungs: Clear to auscultation, Non labored Heart: Regular rate, Normal S1, Normal S2, systolic murmur + Abdomen: Soft, No tenderness Extremities: LE edema 2-3 + Skin: No rash Neuro: Grossly normal Psych/Mental Status: Mental status NL, Mood NL DIAGNOSIS/ASSESSMENT Assessment & Plan New Onset ESRD - Initiated on HD 09/13/19, Urinary retention +, has a reid placed ,Hospitalized last year x 2 , Significant recurrent edema 3 rd treatment 2/3 Access Tunneled HDC , scheduled for MWF as OP CKD stage 4 - has been following with us HyperNa - resolved Urinary retention- 300+ ,Reid placed Recommend Voiding trial prior to DC and Bladder scan to r/o Urinary retention If Persistent may hav e to be dced with Reid and follow up with UROLOGY defer to primary dw RN CHF-prob Diastolic Requd IV lasix Drip at last hospitalizations, currently asymptomatic, Atrial fibrillation. s/p cardiac Cath 06/07, Normal Membranous Nephropathy Dx in post Bx Proteinuria at Dx was 8 gm, improved most recent Pr/Cr <200 holding due to worsening renal function SLE- Use to follow with Rheumatology (Dr Hill) ,was on Imuran Currently only on Hydroxychloroquine Not seen for long time due to the financial constraints HTN- antihypertensives Renal Doppler - No Doppler evidence of greater than 60% stenosis within the renal arteries. COMMENT/RELEVANT DATA Meds Current Medications Medications (Trade) Dose Ordered Sig/Blaine Start Time Stop Time Status Last Admin Dose Admin Acetaminophen (Tylenol) 650 mg PRN Q6HRS PRN 09/14/19 16:45 09/16/19 19:17 650 MG Bisacodyl (Dulcolax Tab) 10 mg 1X ONCE 09/16/19 12:00 09/16/19 12:02 DC 09/16/19 13:57 10 MG Bupivacaine HCl (Sensorcaine Mpf 0.5%) 10 ml 1X ONCE 09/17/19 15:45 09/17/19 15:54 DC 09/17/19 15:45 10 ML Bupivacaine HCl (Sensorcaine-Mpf 0.25%) 10 ml 1X ONCE 09/11/19 11:30 09/11/19 11:31 DC Calcium Gluconate (Calcium Gluconate) 1,000 mg 1X ONCE 09/10/19 23:45 09/10/19 23:46 DC 09/10/19 23:59 1,000 MG Cefazolin Sodium (Ancef) 1 gm 1X ONCE 09/13/19 14:15 09/13/19 14:16 Cancel Darbepoetin Emmanuel (ARANESP for DIALYSIS PTS) 60 mcg WEEKLYHS 09/11/19 21:00 09/11/19 20:47 60 MCG Dextrose (Dextrose 50%-Water Syringe) 25 gm 1X ONCE 09/10/19 23:45 09/10/19 23:46 DC 09/10/19 23:57 25 GM Diclofenac Sodium (Voltaren) 1 del BID 09/11/19 12:00 09/18/19 08:34 1 DEL Fentanyl Citrate (Fentanyl 2ml Vial) 100 mcg 1X ONCE 09/13/19 14:15 09/13/19 14:16 Cancel Furosemide (Lasix) 40 mg DAILY 09/12/19 12:30 09/18/19 08:35 40 MG Heparin Sodium (Porcine) (Heparin Sodium) 1,600 unit PRN Q6HRS PRN 09/10/19 23:45 09/11/19 16:30 DC Heparin Sodium/ Dextrose 250 ml @ 0 mls/hr CONT PRN 09/10/19 23:45 09/11/19 10:46 DC 09/11/19 00:14 7.56 MLS/HR Hydralazine HCl (Apresoline Inj) 10 mg PRN Q4HRS PRN 09/12/19 12:00 09/16/19 08:11 10 MG Info (Anti-Coagulation Monitoring By Pharmacy) 1 each PRN DAILY PRN 09/11/19 08:15 09/11/19 16:30 DC Info (CONTRAST GIVEN -- Rx MONITORING) 1 each PRN DAILY PRN 09/13/19 14:30 09/15/19 14:29 Cancel Info (PHARMACY MONITORING -- do not chart) 1 each PRN DAILY PRN 09/18/19 10:15 Insulin Human Regular (HumuLIN R VIAL) 10 unit 1X ONCE 09/10/19 23:45 09/10/19 23:46 DC 09/11/19 00:16 10 UNIT Iodixanol (Visipaque 320) 100 ml 1X ONCE 09/13/19 14:15 09/13/19 14:16 Cancel Labetalol HCl (Normodyne Iv Push) 10 mg 1X ONCE 09/10/19 23:45 09/10/19 23:46 DC 09/10/19 22:30 10 MG Labetalol HCl (Trandate) 200 mg BID 09/11/19 21:00 09/18/19 08:34 200 MG Lidocaine HCl (Buffered Lidocaine 1%) 3 ml 1X ONCE 09/13/19 14:15 09/13/19 14:16 Cancel Lidocaine/ Epinephrine (LIDOCAINE 1%-EPI 1:100,000 Multi-Dose) 20 ml 1X ONCE 09/13/19 13:00 09/13/19 13:01 DC 09/13/19 12:51 12 ML Lubiprostone (Amitiza) 24 mcg BIDWMEALS 09/17/19 10:00 09/18/19 09:36 DC 09/17/19 18:35 24 MCG Methylprednisolone Acetate (DEPO-Medrol 40MG VIAL) 40 mg 1X ONCE 09/11/19 11:30 09/11/19 11:31 DC Methylprednisolone Acetate (DEPO-Medrol 80MG VIAL) 80 mg 1X ONCE 09/17/19 15:45 09/17/19 15:54 DC 09/17/19 15:45 80 MG Midazolam HCl (Versed) 2 mg 1X ONCE 09/13/19 14:15 09/13/19 14:16 Cancel Morphine Sulfate (Morphine Sulfate) 2 mg PRN Q2HR PRN 09/17/19 17:45 Multi-Ingredient Ointment (Hydrocerin Cream) 1 del BID 09/11/19 21:00 09/18/19 08:33 1 DEL Nitroglycerin (Nitrostat) 0.4 mg PRN Q5MIN PRN 09/10/19 23:45 09/11/19 23:44 DC Ondansetron HCl (Zofran) 4 mg PRN Q8HRS PRN 09/10/19 23:45 09/11/19 23:44 DC Pantoprazole Sodium (Protonix) 40 mg DAILYAC 09/12/19 15:00 09/18/19 08:34 40 MG Polyethylene Glycol (miraLAX PACKET) 17 gm DAILY 09/19/19 09:00 Sodium Chloride 1,000 ml @ 400 mls/hr Q2H30M PRN 09/18/19 10:02 09/18/19 22:01 Tramadol HCl (Ultram) 50 mg PRN Q6HRS PRN 09/17/19 17:45 Lab Laboratory Tests Test 09/18/19 07:32 White Blood Count 4.2 x10^3/uL (4.0-11.0) Red Blood Count 3.21 x10^6/uL (3.50-5.40) Hemoglobin 9.3 g/dL (12.0-15.5) Hematocrit 29.7 % (36.0-47.0) Mean Corpuscular Volume 93 fL (79-100) Mean Corpuscular Hemoglobin 29 pg (25-35) Mean Corpuscular Hemoglobin Concent 32 g/dL (31-37) Red Cell Distribution Width 17.9 % (11.5-14.5) Platelet Count 122 x10^3/uL (140-400) Neutrophils (%) (Auto) 79 % (31-73) Lymphocytes (%) (Auto) 13 % (24-48) Monocytes (%) (Auto) 8 % (0-9) Eosinophils (%) (Auto) 0 % (0-3) Basophils (%) (Auto) 0 % (0-3) Neutrophils # (Auto) 3.3 x10^3/uL (1.8-7.7) Lymphocytes # (Auto) 0.5 x10^3/uL (1.0-4.8) Monocytes # (Auto) 0.3 x10^3/uL (0.0-1.1) Eosinophils # (Auto) 0.0 x10^3/uL (0.0-0.7) Basophils # (Auto) 0.0 x10^3/uL (0.0-0.2) Sodium Level 140 mmol/L (136-145) Potassium Level 4.7 mmol/L (3.5-5.1) Chloride Level 103 mmol/L (98-107) Carbon Dioxide Level 26 mmol/L (21-32) Anion Gap 11 (6-14) Blood Urea Nitrogen 35 mg/dL (7-20) Creatinine 2.5 mg/dL (0.6-1.0) Estimated GFR (Cockcroft-Gault) 23.9 Glucose Level 98 mg/dL (70-99) Calcium Level 8.8 mg/dL (8.5-10.1) Results All relevant outside records, renal labs, imaging studies, telemetry/EKG's were reviewed. SHEILA CREWS MD Sep 18, 2019 12:14
[2019-09-18] MEDS ORDERED: TRAM50TA PO (14:42)
--- NOTE | 2019-09-18 14:44 | SNU/HH DC ---
DISCHARGE ORDERS DISCHARGE INFORMATION: DISCHARGE DATE: Sep 18, 2019 FINAL DIAGNOSIS Problems Medical Problems: (1) Accelerated hypertension Status: Acute (2) CKD (chronic kidney disease) now on HD Status: Acute (3) Fall with menisceal tear and right knee pain Status: Acute (4) Hypothermia Status: Acute CONDITION ON DISCHARGE: Stable CODE STATUS: Code Status: Full LONG TERM: SNF STAY <30 DAYS: Yes POST DISCHARGE ORDERS: ACTIVITY ORDERS: Activity as tolerated WEIGHT BEARING STATUS: No restrictions BATHING ORDERS: Shower-keep dressing dry DIET AFTER DISCHARGE: Renal CHECKS AFTER DISCHARGE: CHECKS AFTER DISCHARGE: Check blood press - daily, Check your Temp as needed, Weigh Yourself Daily TREATMENT/EQUIPMENT ORDERS: ADAPTIVE EQUIPMENT NEEDED: Brace/splint Physical Therapy For: Evalulation/Treatment Occupational Therapy For: Evaluation/Treatment DISCHARGE MEDICATIONS: Home Meds Active Scripts Tramadol Hcl (TRAMADOL HCL) 50 Mg Tablet, 50 MG PO PRN Q6HRS PRN for MODERATE - SEVERE PAIN for 7 Days, #28 TAB Prov:JHONNY ROQUE MD 09/18/19 [DARBEPOETIN CARRI for DIALYSIS] 60 MCG/0.3 ML DISP.SYRIN No Conflict Check, 60 MCG SQ WEEKLYHS for Anemia of chronic renal diseas for 30 Days, #4 DIS.SYR Prov:PAMELA HDZ MD 07/09/19 Reported Medications Pantoprazole Sodium (PROTONIX ) 40 Mg Tablet.dr, 40 MG PO DAILYAC for GERD, TAB 06/05/19 Multivitamin (MULTIVITAMINS) 1 Each Tablet, 1 TAB PO DAILY for , #90 TAB 3 Refills 06/05/19 Budesonide/Formoterol Fumarate (SYMBICORT 160-4.5 MCG INHALER) 10.2 Gm Hfa.aer.ad, 1 PUFF IH BID, INHALER 12/13/18 Tiotropium [place] (SPIRIVA) 18 Mcg Cap.w.dev, 2 INH IH DAILY, #1 INH 0 Refills 12/13/18 Rivaroxaban (XARELTO) 10 Mg Tablet, 10 MG PO DAILY, TAB 12/13/18 Calcium Acetate (PHOSLO) 667 Mg Capsule, 1 CAP PO BIDWMEALS, #90 CAP 5 Refills 06/11/14 Potassium Chloride (K-Tab ER) 20 Meq Tablet.er, 20 MEQ PO DAILY, TAB.SR 05/23/14 Discontinued Reported Medications Hydroxychloroquine Sulfate (HYDROXYCHLOROQUINE SULFATE) 200 Mg Tablet, 200 MG PO DAILY for , TAB 06/05/19 Albuterol Sulfate (PROAIR HFA INHALER) 8.5 Gm Hfa.aer.ad, 1 PUFF INH PRN Q6HRS PRN for SHORTNESS OF BREATH, INHALER 0 Refills 12/13/18 Atorvastatin Calcium (ATORVASTATIN CALCIUM) 40 Mg Tablet, 40 MG PO HS for FOR CHOLESTEROL, #30 TAB 0 Refills 12/13/18 JHONNY ROQUE MD Sep 18, 2019 14:43
--- NOTE | 2019-09-18 14:53 | PDOC3 ---
Discharge Summary Visit Information Date of Admission: Sep 11, 2019 Date of Discharge: Sep 18, 2019 Admitting Diagnosis Comment: Acute on chronic systolic and diastolic heart failure Lupus Membranous nephropathy Proteinuria Azotemia Fall Deconditioning Pain Weakness Final Diagnosis Problems Medical Problems: (1) Accelerated hypertension Status: Acute (2) CKD (chronic kidney disease) now on Hemodialysis Status: Acute (3) Fall with knee injury with menisceal tear Status: Acute (4) Hypothermia (5) membranous nephropathy Status: Acute Brief Hospital Course Allergies Allergies Coded Allergies Type Severity Reaction Last Updated Verified No Known Drug Allergies 05/23/14 No Vital Signs Vital Signs Date Time Temp Pulse Resp B/P (MAP) Pulse Ox O2 Delivery O2 Flow Rate FiO2 09/18/19 08:34 80 176/103 09/18/19 08:00 Room Air 2.0 09/18/19 07:00 98.0 18 93 98.0 Lab Results Laboratory Tests Test 09/17/19 03:45 09/18/19 07:32 White Blood Count 4.5 x10^3/uL (4.0-11.0) 4.2 x10^3/uL (4.0-11.0) Red Blood Count 2.92 x10^6/uL (3.50-5.40) 3.21 x10^6/uL (3.50-5.40) Hemoglobin 8.5 g/dL (12.0-15.5) 9.3 g/dL (12.0-15.5) Hematocrit 26.3 % (36.0-47.0) 29.7 % (36.0-47.0) Mean Corpuscular Volume 90 fL (79-100) 93 fL (79-100) Mean Corpuscular Hemoglobin 29 pg (25-35) 29 pg (25-35) Mean Corpuscular Hemoglobin Concent 32 g/dL (31-37) 32 g/dL (31-37) Red Cell Distribution Width 17.9 % (11.5-14.5) 17.9 % (11.5-14.5) Platelet Count 109 x10^3/uL (140-400) 122 x10^3/uL (140-400) Neutrophils (%) (Auto) 65 % (31-73) 79 % (31-73) Lymphocytes (%) (Auto) 18 % (24-48) 13 % (24-48) Monocytes (%) (Auto) 16 % (0-9) 8 % (0-9) Eosinophils (%) (Auto) 1 % (0-3) 0 % (0-3) Basophils (%) (Auto) 0 % (0-3) 0 % (0-3) Neutrophils # (Auto) 2.9 x10^3/uL (1.8-7.7) 3.3 x10^3/uL (1.8-7.7) Lymphocytes # (Auto) 0.8 x10^3/uL (1.0-4.8) 0.5 x10^3/uL (1.0-4.8) Monocytes # (Auto) 0.7 x10^3/uL (0.0-1.1) 0.3 x10^3/uL (0.0-1.1) Eosinophils # (Auto) 0.1 x10^3/uL (0.0-0.7) 0.0 x10^3/uL (0.0-0.7) Basophils # (Auto) 0.0 x10^3/uL (0.0-0.2) 0.0 x10^3/uL (0.0-0.2) Sodium Level 139 mmol/L (136-145) 140 mmol/L (136-145) Potassium Level 4.0 mmol/L (3.5-5.1) 4.7 mmol/L (3.5-5.1) Chloride Level 102 mmol/L (98-107) 103 mmol/L (98-107) Carbon Dioxide Level 31 mmol/L (21-32) 26 mmol/L (21-32) Anion Gap 6 (6-14) 11 (6-14) Blood Urea Nitrogen 23 mg/dL (7-20) 35 mg/dL (7-20) Creatinine 2.0 mg/dL (0.6-1.0) 2.5 mg/dL (0.6-1.0) Estimated GFR (Cockcroft-Gault) 30.9 23.9 Glucose Level 90 mg/dL (70-99) 98 mg/dL (70-99) Calcium Level 8.6 mg/dL (8.5-10.1) 8.8 mg/dL (8.5-10.1) Laboratory Tests Test 09/18/19 07:32 White Blood Count 4.2 x10^3/uL (4.0-11.0) Red Blood Count 3.21 x10^6/uL (3.50-5.40) Hemoglobin 9.3 g/dL (12.0-15.5) Hematocrit 29.7 % (36.0-47.0) Mean Corpuscular Volume 93 fL (79-100) Mean Corpuscular Hemoglobin 29 pg (25-35) Mean Corpuscular Hemoglobin Concent 32 g/dL (31-37) Red Cell Distribution Width 17.9 % (11.5-14.5) Platelet Count 122 x10^3/uL (140-400) Neutrophils (%) (Auto) 79 % (31-73) Lymphocytes (%) (Auto) 13 % (24-48) Monocytes (%) (Auto) 8 % (0-9) Eosinophils (%) (Auto) 0 % (0-3) Basophils (%) (Auto) 0 % (0-3) Neutrophils # (Auto) 3.3 x10^3/uL (1.8-7.7) Lymphocytes # (Auto) 0.5 x10^3/uL (1.0-4.8) Monocytes # (Auto) 0.3 x10^3/uL (0.0-1.1) Eosinophils # (Auto) 0.0 x10^3/uL (0.0-0.7) Basophils # (Auto) 0.0 x10^3/uL (0.0-0.2) Sodium Level 140 mmol/L (136-145) Potassium Level 4.7 mmol/L (3.5-5.1) Chloride Level 103 mmol/L (98-107) Carbon Dioxide Level 26 mmol/L (21-32) Anion Gap 11 (6-14) Blood Urea Nitrogen 35 mg/dL (7-20) Creatinine 2.5 mg/dL (0.6-1.0) Estimated GFR (Cockcroft-Gault) 23.9 Glucose Level 98 mg/dL (70-99) Calcium Level 8.8 mg/dL (8.5-10.1) Brief Hospital Course History of Present Illness: HPI: This is a 59-year-old female who fell out in the cold yesterday She has some associated weakness EMS was called and she was found down They noticed that she was hypothermic and hypoglycemic although somewhat alert and oriented She was given warmed blankets and some glucose and brought to the ER Rates her pain at 7 out of 10 Moving makes it worse sitting still makes it better I discussed the case with ER physician were going to admit the patient for glycemic management and IV fluids Ms. Caruso is a 59 old male who presented with the above-mentioned history. The patient was admitted to the medical floor where she was seen in consultation by nephrology. She was also assessed by cardiology and also by GI due to anemia, the patient unfortunately progressed to end-stage renal disease on this hospital stay. She had a tunnel catheter placed on 09/13/2019. She was started on hemodialysis shortly after. As a consequence of her fall she suffered a right knee contusion. She was seen in consultation by Dr. Luciano as well from pain management. MRI was recommended. With the following findings: IMPRESSION: 1. Nondisplaced avulsion type fracture of the posterior tibial plateau, at the posterior cruciate ligament attachment. Nose evidence of fragmented elevation or displacement. The posterior cruciate ligament itself is intact. 2. Osteochondral defect of the patella is also most likely due to a posttraumatic fracture. The appearance suggests some displaced osteochondral tissue but these fragments are not visualized. 3. Medial meniscal tear. Dr. Tan later the patient the day prior to her discharge and perform an aspiration of the joint. She was then injected with 1 mL 80 mg/mL Depo-Medrol and 3 mL of 0.5% plain Marcaine. He tolerated the procedure well, the patient was seen prior to dismissal during her dialysis no complaints on the last day of hospital admission. Signs and symptoms of alarm discussed she will continue with her recovery at [facility] greater than 35 minutes were spent in the discharge process the patient counseling coronation of care and arrangements for safe discharge. Her anticoagulation was restarted for her atrial fibrillation she'll also follow-up with GI in the outpatient setting for a possible endoscopy and colonoscopy. Assessment Assessment General: Alert, Oriented X3, Cooperative, No acute distress Heart: Regular rate (SR), Normal S1, Normal S2, Other (4/6 systolic murmur to LLS border; S4) Lungs: Other Abdomen: Soft, No tenderness Extremities: No cyanosis, Other (2-3+ bilateral LE pitting edema) Skin: No breakdown, No significant lesion Discharge Information Condition at Discharge: Improved Disposition/Orders: D/C to Another Facility Scheduled Budesonide/Formoterol Fumarate (Symbicort 160-4.5 Mcg Inhaler) 10.2 Gm Hfa.aer.ad, 1 PUFF IH BID, (Reported) Entered as Reported by: MJ GOMES RPH on 12/13/181402 Last Action: Reviewed on 09/11/19128 by JUAN HOLBROOK Calcium Acetate (Phoslo) 667 Mg Capsule, 1 CAP PO BIDWMEALS, #90 Ref 5 (Reported) Entered as Reported by: MARSHALL NESS on 06/11/1438 Last Action: Reviewed on 09/11/19128 by JUAN HOLBROOK Multivitamin (Multivitamins) 1 Each Tablet, 1 TAB PO DAILY for , #90 Ref 3 (R eported) Entered as Reported by: Bernadette Richey on 06/05/192057 Last Action: Reviewed on 09/11/19128 by JUAN HOLBROOK Pantoprazole Sodium (Protonix ) 40 Mg Tablet.dr, 40 MG PO DAILYAC for GERD, (Reported) Entered as Reported by: Bernadette Richey on 06/05/192057 Last Action: Reviewed on 09/11/19128 by JUAN HOLBROOK Potassium Chloride (K-Tab ER) 20 Meq Tablet.er, 20 MEQ PO DAILY, (Reported) Entered as Reported by: MITRA MORALES on 05/23/14 0739 Last Action: Reviewed on 09/11/19128 by JUAN HOLBROOK Rivaroxaban (Xarelto) 10 Mg Tablet, 10 MG PO DAILY, (Reported) Entered as Reported by: MJ GOMES RPH on 12/13/181401 Last Action: Reviewed on 09/11/19128 by JUAN HOLBROOK Tiotropium Dixon (Spiriva) 18 Mcg Cap.w.dev, 2 INH IH DAILY, #1 Ref 0 (Reported) Entered as Reported by: MJ GOMES RPH on 12/13/181402 Last Action: Reviewed on 09/11/19128 by JUAN HOLBROOK [Darbepoetin Emmanuel In Polysorbat] 60 MCG/0.3 ML DISP.SYRIN, 60 MCG SQ WEEKLYHS for Anemia of chronic renal diseas for 30 Days, #4 Prescribed by: PAMELA HDZ MD on 07/09/19 1339 Scheduled PRN Tramadol Hcl (Tramadol Hcl) 50 Mg Tablet, 50 MG PO PRN Q6HRS PRN for MODERATE - SEVERE PAIN for 7 Days, #28 Prescribed by: JHONNY ROQUE MD on 09/18/19 1442 Discontinued Medications Albuterol Sulfate (Proair Hfa Inhaler) 8.5 Gm Hfa.aer.ad, 1 PUFF INH PRN Q6HRS PRN for SHORTNESS OF BREATH, Ref 0 (Reported) Entered as Reported by: MJ GOMES [facility] on 12/13/18 1403 Last Action: Discontinued on 09/11/19 0129 by JUAN HOLBROOK Atorvastatin Calcium (Atorvastatin Calcium) 40 Mg Tablet, 40 MG PO HS for FOR CHOLESTEROL, #30 Ref 0 (Reported) Entered as Reported by: MJ GOMES [facility] on 12/13/18 1401 Last Action: Discontinued on 09/11/19 0129 by JUAN HOLBROOK Hydroxychloroquine Sulfate (Hydroxychloroquine Sulfate) 200 Mg Tablet, 200 MG PO DAILY for , (Reported) Entered as Reported by: Bernadette Richey on 06/05/192057 Last Action: Discontinued on 09/11/19 0129 by JUAN HOLBROOK Hemodynamically unstable?: No Is patient in severe pain?: No Is NPO status required?: No JHONNY ROQUE MD Sep 18, 2019 14:53
[2019-09-18 15:00] VITALS: BP 138/86
--- NOTE | 2019-09-18 15:23 | NUR ---
SS following up with discharge planning. Discharge orders for [facility] received. SS phoned and faxed discharge orders to [facility]. Pt will discharge today and go to [facility] between 1630 and 1700 via [facility]. Pt and pt's RN notified.
--- NOTE | 2019-09-18 15:27 | NUR ---
Wound Care: Consult to eval and treat for pressure area present on Coccyx. Wound is epithelialized completely, although still bright pink and fragile. Area cleansed and skin prep and foam dressing applied for protection. Provided pericare and helped pt to turn to R side with pillows. Heels floated. Per Sherman KAM, pt is discharging today. Education provided to patient regarding positional changes to avoid skin breakdown
--- NOTE | 2019-09-18 17:59 | NUR ---
Discharge Note: INA GRANT Discharge instructions and discharge home medications reviewed with Patient and a copy given. All questions have been answered and understanding verbalized. The following instructions and handouts were given: Discontinued IV line Patient discharged to SNU with transport via wheelchair
[2019-09-19] MEDS ORDERED: POLYETHYLENE GLYCOL 3350 17 GM PACKET. PO SCH (09:00)
== END 2019-09-18 16:45 | DRG 673 ==
LOC: ER 20:21 → 2 NORTH 23:30
PROVIDERS: ADMIT Internal Medicine; ATTEND Internal Medicine
PROC: 3E0U33Z Introduction of Anti-inflammatory into Joints, Percutaneous Approach (ICD-10-PCS; principal; 2019-09-10)
PROC: 3E0U3BZ Introduction of Anesthetic Agent into Joints, Percutaneous Approach (ICD-10-PCS; 2019-09-10)
PROC: 0JH63XZ Insertion of Tunneled Vascular Access Device into Chest Subcutaneous Tissue and Fascia, Percutaneous Approach (ICD-10-PCS; 2019-09-13)
PROC: 02H633Z Insertion of Infusion Device into Right Atrium, Percutaneous Approach (ICD-10-PCS; 2019-09-13)
PROC: B5181ZA Fluoroscopy of Superior Vena Cava using Low Osmolar Contrast, Guidance (ICD-10-PCS; 2019-09-13)
PROC: 5A1D70Z Performance of Urinary Filtration, Intermittent, Less than 6 Hours Per Day (ICD-10-PCS; 2019-09-14)
PROC: 5A1D70Z Performance of Urinary Filtration, Intermittent, Less than 6 Hours Per Day (ICD-10-PCS; 2019-09-16)
PROC: 5A1D70Z Performance of Urinary Filtration, Intermittent, Less than 6 Hours Per Day (ICD-10-PCS; 2019-09-18)
PROC: 5A1D70Z Performance of Urinary Filtration, Intermittent, Less than 6 Hours Per Day (ICD-10-PCS; 2019-09-18)
DX: N17.0 Acute kidney failure with tubular necrosis (principal); I50.43 Acute on chronic combined systolic (congestive) and diastolic (congestive) heart failure; I13.2 Hypertensive heart and chronic kidney disease with heart failure and with stage 5 chronic kidney disease, or end stage renal disease; J44.0 Chronic obstructive pulmonary disease with (acute) lower respiratory infection; D25.9 Leiomyoma of uterus, unspecified; D63.1 Anemia in chronic kidney disease; E04.2 Nontoxic multinodular goiter; E16.2 Hypoglycemia, unspecified; E78.00 Pure hypercholesterolemia, unspecified; E78.5 Hyperlipidemia, unspecified; E87.5 Hyperkalemia; F41.9 Anxiety disorder, unspecified; I16.0 Hypertensive urgency; I48.0 Paroxysmal atrial fibrillation; K21.9 Gastro-esophageal reflux disease without esophagitis; K59.00 Constipation, unspecified; M19.90 Unspecified osteoarthritis, unspecified site; T68.XXXA Hypothermia, initial encounter; M06.9 Rheumatoid arthritis, unspecified; M32.9 Systemic lupus erythematosus, unspecified; N02.2 Recurrent and persistent hematuria with diffuse membranous glomerulonephritis; N18.6 End stage renal disease; S80.01XA Contusion of right knee, initial encounter; S83.249A Other tear of medial meniscus, current injury, unspecified knee, initial encounter; Z79.01 Long term (current) use of anticoagulants; Z79.51 Long term (current) use of inhaled steroids; Z79.899 Other long term (current) drug therapy; Z82.49 Family history of ischemic heart disease and other diseases of the circulatory system; Z86.711 Personal history of pulmonary embolism; Z99.2 Dependence on renal dialysis; W18.39XA Other fall on same level, initial encounter; Y93.89 Activity, other specified; Y92.89 Other specified places as the place of occurrence of the external cause; Y99.8 Other external cause status
CPT/HCPCS: 36415; 36558; 70450; 71045; 72125; 73560; 73721; 74018; 76937; 77001; 80048; 80053; 80069; 81001; 82550; 82962; 83540; 83550; 83735; 83880; 84100; 84484; 85025; 85027; 85610; 85730; 86704; 86706; 87340; 93005; 93925; 96365; 96375; 99152; 99285; C1750; C1769; C1892; J0360; J0610; J0690; J0882; J1040; J1644; J1815; J1940; J2250; J3010; J3490; J7030; J7042; 97110; 97116; 97530; 97535; G0378